=== PATIENT | male | born 1960 | race Caucasian/White ===

== ENCOUNTER 2017-05-23 16:27 | Emergency (ER) | payer OTHER ==
[~2017-05-23] VITALS: Ht 172.7 cm; Wt 95.7 kg
--- OUTSIDE RECORDS SUMMARY | 2017-05-23 16:30 | XMS REPORT | Clinical Summary ---
Author Author [facility] Organization [facility] Address Unknown Phone Unavailable Care Team Providers Care [employer]er Name Role Phone Asked, Pcp PCP Unavailable Allergies Active Allergy Reactions Severity Noted Date Comments Penicillin GI Intolerance 05/07/2017 Current Medications Prescription Sig. Disp. Refills Start End Date Status Date diclofenac (VOLTAREN) 1 % Apply 1 application 2 02/08/20 Active gel topically 4 (four) times 17 a day as needed for pain. traMADol (ULTRAM) 50 mg Take 50 mg by mouth every 0 04/30/19 Active tablet 6 (six) hours as needed 18 for pain. for pain venlafaxine XR Take 75 mg by mouth daily 3 04/19/19 Active (EFFEXOR-XR) 75 MG 24 hr with breakfast. 18 capsule atorvastatin (LIPITOR) 40 Take 1 tablet (40 mg 30 tablet 0 05/09/19 06/09/19 Active MG tablet total) by mouth nightly 18 18 for 30 days. famotidine (PEPCID) 20 MG Take 1 tablet (20 mg 60 tablet 0 05/09/19 06/09/19 Active tablet total) by mouth 2 (two) 18 18 times a day for 30 days. aspirin 81 mg chewable Chew 1 tablet (81 mg 30 tablet 0 05/09/19 Active tablet total) daily for 30 days. 18 18 baclofen (LIORESAL) 20 MG Take 1 tablet (20 mg 90 tablet 0 05/09/19 06/09/19 Active tablet total) by mouth 3 (three) 18 18 times a day for 30 days. gabapentin (NEURONTIN) Take 1 capsule (300 mg 90 capsule 0 05/09/19 06/09/19 Active 300 mg capsule total) by mouth 3 (three) 18 18 times a day for 30 days. acetaminophen-codeine Take 1-2 tablets by mouth 0 05/03/19 05/09/19 Discontin (TYLENOL WITH CODEINE #4) every 4 (four) hours as 18 18 ued 300-60 mg per tablet needed for pain. carisoprodol (SOMA) 350 Take 350 mg by mouth 0 03/06/20 05/09/19 Discontin MG tablet nightly. 17 18 ued gabapentin (NEURONTIN) Take 600 mg by mouth 3 04/19/19 05/09/19 Discontin 600 mg tablet (three) times a day. 18 18 ued HYDROcodone-acetaminophen Take 1 tablet by mouth 0 04/13/19 05/09/19 Discontin (NORCO) 7.5-325 mg per every 4 (four) hours as 18 18 ued tablet needed for pain. HYDROcodone-acetaminophen Take 1-2 tablets by mouth 0 03/20/20 Discontin (NORCO) 10-325 mg per every 4 (four) hours as 17 18 ued tablet needed. ibuprofen (ADVIL,MOTRIN) Take 400 mg by mouth 2 03/30/19 05/09/19 Discontin 400 MG tablet (two) times a day. 18 18 ued SUMAtriptan (IMITREX) 100 Take 100 mg by mouth 2 03/30/19 05/09/19 Discontin MG tablet (two) times a day as 18 18 ued needed for migraine. acetaminophen-codeine Take 1 tablet by mouth 0 04/30/19 05/09/19 Discontin (TYLENOL WITH CODEINE #3) every 6 (six) hours as 18 18 ued 300-30 mg per tablet needed. for pain baclofen (LIORESAL) 20 MG Take 20 mg by mouth 3 0 04/07/19 05/09/19 Discontin tablet (three) times a day. 18 18 ued butalbital-acetaminophen- TAKE 2 TABLETS BY MOUTH 2 04/04/19 Discontin caff (FIORICET, ESGIC) EVERY 8 (EIGHT) HOURS 18 18 ued 50-325-40 mg per tablet NEEDED FOR PAIN (SCALE 4-6) OR PAIN (SCALE 7-10). diazePAM (VALIUM) 5 MG Take 1 tablet by mouth 2 3 04/18/19 05/09/19 Discontin tablet (two) times a day. 18 18 ued tiZANidine (ZANAFLEX) 4 Take 4 mg by mouth daily. 0 03/05/20 Discontin MG tablet 17 18 ued methylPREDNISolone follow package directions 21 tablet 0 05/09/19 (MEDROL DOSEPAK) 4 mg 18 18 tablet methylPREDNISolone follow package directions 21 tablet 0 05/09/19 (MEDROL DOSEPAK) 4 mg 18 18 tablet methylPREDNISolone follow package directions 21 tablet 0 05/10/19 (MEDROL DOSEPAK) 4 mg 18 18 tablet methylPREDNISolone follow package directions 21 tablet 0 05/11/19 (MEDROL DOSEPAK) 4 mg 18 18 tablet methylPREDNISolone follow package directions 21 tablet 0 05/09/19 (MEDROL DOSEPAK) 4 mg 18 18 tablet methylPREDNISolone follow package directions 21 tablet 0 05/09/19 (MEDROL DOSEPAK) 4 mg 18 18 tablet methylPREDNISolone follow package directions 21 tablet 0 05/10/19 (MEDROL DOSEPAK) 4 mg 18 18 tablet acetaminophen-codeine Take 1 tablet by mouth 28 tablet 0 05/09/19 (TYLENOL WITH CODEINE #3) every 6 (six) hours as 18 18 300-30 mg per tablet needed for moderate pain for up to 7 days. 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 Iron deficiency anemia 05/09/2017 Hyperlipidemia 05/09/2017 Weakness of left lower extremity 05/08/2017 Sciatica of left side 05/07/2017 Encounters Date Type Specialty Care Team Description 05/07/2017 [facility] General Internal Medicine Kavita Coker MD Sciatica of left side - Encounter Genaro Mata MD (Primary Dx); 05/09/2017 Jericho Ayala MD Weakness of left lower extremity 03/06/2017 [facility] Radiology Angel Bain MD Pseudarthrosis after Encounter fusion or arthrodesis 03/06/2017 [facility] Angel Bain MD Pseudarthrosis after Orders fusion or arthrodesis 03/06/2017 [facility] Angel Bain MD Pseudarthrosis after Orders fusion or arthrodesis (Primary Dx) after 05/22/2016 Social History Tobacco Use Types Packs/Day Years Used Date Never Smoker Smokeless Tobacco: Never Used Alcohol Use Drinks/Week oz/Week Comments No Sex Assigned at Date Recorded Not on file Last Filed Vital Signs Vital Sign Reading Time Taken Blood Pressure 150/75 05/09/2017 9:35 AM ELECTRICAL [employer]OL[employer] TECHNICIAN Pulse 75 05/09/2017 9:35 AM ELECTRICAL CONTROLS TECHNICIAN Temperature 36.2 C (97.1 F) 05/09/2017 7:28 AM ELECTRICAL CONTROLS TECHNICIAN Respiratory Rate 18 05/09/2017 7:28 AM ELECTRICAL CONTROLS TECHNICIAN Oxygen Saturation 96% 05/09/2017 9:35 AM ELECTRICAL CONTROLS TECHNICIAN Inhaled Oxygen - - Concentration Weight 89 kg (196 lb 4.8 oz) 05/07/2017 11:47 PM ELECTRICAL CONTROLS TECHNICIAN Height 170.2 cm (5' 7") 05/07/2017 11:47 PM ELECTRICAL CONTR[employer]S TECHNICIAN Body Mass Index 30.74 05/07/2017 11:47 PM ELECTRICAL CONTROLS TECHNICIAN Plan of Treatment Health Maintenance Due Date Last Done Comments COLONOSCOPY 08/26/2011 INFLUENZA VACCINE 10/24/2016 Results * POC glucose (05/09/2017 5:05 AM) Only the most recent of 4 results within the time period is included. Component Value Ref Range POC glucose 223 (H) 65 - 99 mg/dL Comment: No Action Needed [facility] Notified RN Meter ID: [id number] Sand Carrier: Jb Ruiz Specimen Performing Laboratory [facility] DEPARTMENT OF PATHOLOGY AND GENOMIC MEDICINE [address] [place] [id number] * Estimated GFR (05/09/2017 4:00 AM) Only the most recent of 4 results within the time period is included. Component Value Ref Range GFR Non Af Amer >90 mL/min/1.73 m2 GFR Af Amer >90 mL/min/1.73 m2 Comment: Chronic kidney disease: <60 mL/min/1.73m2 Kidney failure: <15 mL/min/1.73m2 The estimated GFR is calculated from the IDMS-traceable Modification of Diet in Renal Disease Equation. The accuracy of the calculation is poor when the creatinine is normal. Calculated values >90 mL/min/1.73m2 are not reported. This equation has not been validated in children (<18 years), women, the elderly (>70 years), or ethnic groups other than Caucasians and Americans. Specimen Performing Laboratory Plasma specimen [facility] DEPARTMENT OF PATHOLOGY AND GENOMIC MEDICINE [address] [place] [id number] * CBC with platelet and differential (05/09/2017 4:00 AM) Only the most recent of 4 results within the time period is included. Component Value Ref Range WBC 8.71 4.50 - 11.00 k/uL RBC 4.50 4.40 - 6.00 m/uL HGB 12.0 (L) 14.0 - 18.0 g/dL HCT 38.1 (L) 41.0 - 51.0 % MCV 84.7 82.0 - 100.0 fL MCH 26.7 (L) 27.0 - 34.0 pg MCHC 31.5 31.0 - 37.0 g/dL RDW - SD 43.6 37.0 - 55.0 fL MPV 9.8 8.8 - 13.2 fL Platelet count 273 150 - 400 k/uL Nucleated RBC 0.30 /100 WBC Neutrophils 88.3 (H) 39.0 - 69.0 % Lymphocytes 6.3 (L) 25.0 - 45.0 % Monocytes 3.2 0.0 - 10.0 % Eosinophils 0.0 0.0 - 5.0 % Basophils 0.2 0.0 - 1.0 % Immature granulocytes 2.0 (H)Comment: "Immature granulocytes" 0.0 - 1.0 % (promyelocytes, myelocytes, metamyelocytes) Specimen Performing Laboratory Blood [facility] DEPARTMENT OF PATHOLOGY AND GENOMIC MEDICINE [address] [place] [id number] * Basic metabolic panel (05/09/2017 4:00 AM) Only the most recent of 2 results within the time period is included. Component Value Ref Range Sodium 137 135 - 148 mEq/L Potassium 4.5 3.5 - 5.0 mEq/L Chloride 101 98 - 112 mEq/L CO2 18 (L) 24 - 31 mEq/L Anion gap 18 (H) 7 - 15 mEq/L Comment: Starting from June , anion gap calculation no longer incorporates potassium. Please note the change. BUN 16 6 - 20 mg/dL Creatinine 0.8 0.7 - 1.2 mg/dL Glucose 197 (H) 65 - 99 mg/dL Calcium 9.8 8.3 - 10.2 mg/dL Specimen Performing Laboratory Plasma specimen [facility] DEPARTMENT OF PATHOLOGY AND [facility] MEDICINE [address] [place] [address] * XR Spine Scoliosos 2-3 Views (05/08/2017 6:30 PM) Only the most recent of 2 results within the time period is included. Specimen Performing Laboratory [facility] [address] [place] [address] Narrative EXAMINATION:XR SPINE SCOLIOSIS 2-3 VIEWS CLINICAL HISTORY:back and leg pain COMPARISON:March 06, 2017 IMPRESSION: 10 views of the whole spine are obtained. On the whole spine frontal view, there is no coronal imbalance. On the whole spine lateral view, shoulders obscure the cervical thoracic junction. There is likely anterior displacement of the Tyesha line from the posterior S1 endplate. Levoscoliosis of the cervical thoracic junction with Reeves angle of 18. Dextroscoliosis of the mid thoracic spine to the right apex at T7-8 and Reeves angle of 19. There is mild convexity of the midlumbar spine to the left. L4-S1 fusion with transpedicular screws, interconnecting rods, disc graft and iliac screws. No compression fractures or aggressive bony lesions. Multilevel degenerative endplate changes. Contrast is seen within the lumbar spinal canal due to recent myelogram. [facility]-[id number] Procedure Note Interface, Radiology Results Incoming - 05/08/2017 7:01 PM ELECTRICAL CONTROLS TECHNICIAN EXAMINATION: XR SPINE SCOLIOSIS 2-3 VIEWS CLINICAL HISTORY: back and leg pain COMPARISON: March 06, 2017 IMPRESSION: 10 views of the whole spine are obtained. On the whole spine frontal view, there is no coronal imbalance. On the whole spine lateral view, shoulders obscure the cervical thoracic junction. There is likely anterior displacement of the Tyesha line from the posterior S1 endplate. Levoscoliosis of the cervical thoracic junction with Reeves angle of 18. Dextroscoliosis of the mid thoracic spine to the right apex at T7-8 and Reeves angle of 19. There is mild convexity of the midlumbar spine to the left. L4-S1 fusion with transpedicular screws, interconnecting rods, disc graft and iliac screws. No compression fractures or aggressive bony lesions. Multilevel degenerative endplate changes. Contrast is seen within the lumbar spinal canal due to recent myelogram. [facility]-[id number] * CT Post Myelogram Lumbar (05/08/2017 2:45 PM) Specimen Performing Laboratory [facility] [address] [place] [address] Narrative EXAMINATION:CT POST MYELOGRAM LUMBAR CLINICAL HISTORY:lower back painleft leg radiculopathy COMPARISON:May 07, 2017 TECHNIQUE: CT imaging was performed with iterative reconstruction technique and/ or automated exposure control to reduce radiation dose. FINDINGS: 5 nonrib-bearing lumbar type vertebrae. Lumbar spine alignment is within normal limits. No fractures or aggressive bony lesions. There is L4-S1 fusion with transpedicular screws, iliac screws, interconnecting rods and disc graft. Laminectomy changes at L4 and L5. Posterior lateral fusion material is present. There is compression deformity of the left L5 inferior endplate at the level of the disc graft. Disc graft at this level is superiorly and posteriorly displaced into the left L5 foramen with potential mass effect on the left L5 nerve root. There is no canal narrowing in the lumbar spine. Remaining foramina are clear. IMPRESSION: L4-S1 postsurgical changes. Findings concerning for extension of L5-S1 disc graft material into left L5-S1 foramen with potential impingement of the left L5 nerve root. [facility]-[id number] Procedure Note Interface, Radiology Results Incoming - 05/08/2017 3:47 PM ELECTRICAL CONTROLS TECHNICIAN EXAMINATION: CT POST MYELOGRAM LUMBAR CLINICAL HISTORY: lower back pain left leg radiculopathy COMPARISON: May 07, 2017 TECHNIQUE: CT imaging was performed with iterative reconstruction technique and/ or automated exposure control to reduce radiation dose. FINDINGS: 5 nonrib-bearing lumbar type vertebrae. Lumbar spine alignment is within normal limits. No fractures or aggressive bony lesions. There is L4-S1 fusion with transpedicular screws, iliac screws, interconnecting rods and disc graft. Laminectomy changes at L4 and L5. Posterior lateral fusion material is present. There is compression deformity of the left L5 inferior endplate at the level of the disc graft. Disc graft at this level is superiorly and posteriorly displaced into the left L5 foramen with potential mass effect on the left L5 nerve root. There is no canal narrowing in the lumbar spine. Remaining foramina are clear. IMPRESSION: L4-S1 postsurgical changes. Findings concerning for extension of L5-S1 disc graft material into left L5-S1 foramen with potential impingement of the left L5 nerve root. [facility]-[id number] * IR Myelogram Lumb Incl Inj W S&I (05/08/2017 1:57 PM) Specimen Performing Laboratory [facility] [address] [place] [address] Narrative EXAMINATION:IR MYELOGRAM LUMB INCL INJ W S&I CLINICAL HISTORY:Low back painleft leg radiculopathy COMPARISON:May 07, 2017 Findings: Informed consent was obtained. Lower back was prepped and draped in usual sterile fashion. 1% lidocaine was used for local anesthesia. Conscious sedation was performed with incremental doses of Versed and fentanyl given intravenously by the radiology nurse. The patient was monitored with continuous pulse oximetry, heart rate monitoring and blood pressure monitoring. The physician spent face to face time with the patient for a total of15 minutes. A 22-gauge 3.5 inch needle was advanced into spinal canal at the L2-3 level under intermittent fluoroscopic guidance. 10 cc of Omnipaque 240 were instilled into the spinal canal. No complications. Total fluoroscopic time was 8 seconds. 9 images were obtained. 5 nonrib-bearing lumbar type vertebrae. L4-S1 fusion with transpedicular screws, iliac screws, interconnecting rods and disc grafts. Lumbar spine alignment is within normal limits. No fractures or aggressive bony lesions. No canal narrowing or root sleeve defects. IMPRESSION: L4-S1 fusion. No canal narrowing or root sleeve defects. [facility]-[id number] Procedure Note Hm Interface, Radiology Results Incoming - 05/08/2017 3:51 PM ELECTRICAL CONTROLS TECHNICIAN EXAMINATION: IR MYELOGRAM LUMB INCL INJ W S&I CLINICAL HISTORY: Low back pain left leg radiculopathy COMPARISON: May 07, 2017 Findings: Informed consent was obtained. Lower back was prepped and draped in usual sterile fashion. 1% lidocaine was used for local anesthesia. Conscious sedation was performed with incremental doses of Versed and fentanyl given intravenously by the radiology nurse. The patient was monitored with continuous pulse oximetry, heart rate monitoring and blood pressure monitoring. The physician spent face to face time with the patient for a total of 15 minutes. A 22-gauge 3.5 inch needle was advanced into spinal canal at the L2-3 level under intermittent fluoroscopic guidance. 10 cc of Omnipaque 240 were instilled into the spinal canal. No complications. Total fluoroscopic time was 8 seconds. 9 images were obtained. 5 nonrib-bearing lumbar type vertebrae. L4-S1 fusion with transpedicular screws, iliac screws, interconnecting rods and disc grafts. Lumbar spine alignment is within normal limits. No fractures or aggressive bony lesions. No canal narrowing or root sleeve defects. IMPRESSION: L4-S1 fusion. No canal narrowing or root sleeve defects. [facility]-[id number] * XR Chest 1 Vw Portable (05/08/2017 9:37 AM) Specimen Per[facility] [address] [place] [address] Narrative EXAMINATION:XR CHEST 1 VW PORTABLE CLINICAL HISTORY:SHORTNESS OF BREATH COMPARISON:None. IMPRESSION: 1.The cardiomediastinal silhouette is slightly enlarged. 2.There is no evidence of pulmonary edema. There are no focal consolidations or effusions. 3.There is mild scoliotic curvature of the thoracic spine. A couple of healed rib fractures noted on the left. [facility]-[id number] Procedure Note [facility], Radiology Results Incoming - 05/08/2017 10:01 AM ELECTRICAL CONTROLS TECHNICIAN EXAMINATION: XR CHEST 1 VW PORTABLE CLINICAL HISTORY: SHORTNESS OF BREATH COMPARISON: None. IMPRESSION: 1. The cardiomediastinal silhouette is slightly enlarged. 2. There is no evidence of pulmonary edema. There are no focal consolidations or effusions. 3. There is mild scoliotic curvature of the thoracic spine. A couple of healed rib fractures noted on the left. [facility]-[id number] * ECG 12 lead (05/08/2017 8:32 AM) Component Value Ref Range Ventricular rate 68 Atrial rate 68 VT interval 172 QRSD interval 100 QT interval 434 QTC interval 461 P axis 1 42 QRS axis 1 -8 T wave axis 6 EKG impression Normal sinus rhythm-Incomplete right bundle branch block-Nonspecific T wave abnormality-Prolonged QT-Abnormal ECG-No previous ECGs available- Specimen Performing Laboratory [facility] [address] [place] [address] * Partial thromboplastin time, activated (05/08/2017 6:28 AM) Component Value Ref Range PTT 29.2 23.0 - 36.0 sec Comment: PTT therapeutic range for unfractionated heparin is 61.0-112.0 seconds which corresponds to Anti-Xa 0.3-0.7 U/ml. Specimen Performing Laboratory Blood [facility] DEPARTMENT OF PATHOLOGY AND GENOMIC MEDICINE [address] [place] [address] * Prothrombin time with INR (05/08/2017 6:28 AM) Component Value Ref Range Prothrombin time 13.1 12.0 - 15.0 sec INR 1.0 Comment: The International Normalized Ratio (INR) is a therapeutic monitoring tool for patients who are stable on oral anticoagulant therapy. An INR of 2.0-3.0 is suggested for deep vein thrombosis/pulmonary embolism. Specimen Performing Laboratory Blood [facility] [address] [address] * Total iron binding capacity (05/08/2017 12:48 AM) Component Value Ref Range Iron level 40 (L) 59 - 158 ug/dL Iron binding capacity 326 200 - 400 ug/dL % Saturation 12.3 (L) 20.0 - 40.0 % Specimen Performing Laboratory Plasma specimen [facility] [address] [address] * Phosphorus level (05/08/2017 12:48 AM) Component Value Ref Range Phosphorus 2.9 2.4 - 4.5 mg/dL Specimen Performing Laboratory Plasma specimen [facility] [place] [id number] * Magnesium level (05/08/2017 12:48 AM) Component Value Ref Range Magnesium 2.4 1.6 - 2.6 mg/dL Specimen Performing Laboratory Plasma specimen [facility] [address] [address] * Folate level (05/08/2017 12:48 AM) Component Value Ref Range Folate 11.6 4.8 - 24.2 ng/mL Specimen Performing Laboratory Serum [facility] [address] [address] * Ferritin level (05/08/2017 12:48 AM) Component Value Ref Range Ferritin level 60 30 - 400 ng/mL Specimen Performing Laboratory Plasma specimen [facility] [address] [address] * Vitamin B12 level (05/08/2017 12:48 AM) Component Value Ref Range Vitamin B12 252 211 - 946 pg/mL Comment: Significant overlap exists between normal and deficiency states. However, most patients with deficiencies will have Serum B12 <200 pg/mL. Specimen Performing Laboratory Serum [facility] [address] [address] * Carcinoembryonic antigen (CEA) (05/08/2017 12:48 AM) Component Value Ref Range CEA <1.2 0.0 - 3.8 ng/mL Comment: Reference range for heavy smokers: 0.0 - 5.5 ng/mL The BARBARA Pinky 8000 CEA immunoassay was used. Results obtained with different assay methods or kits should not be used interchangeably and may be different. Specimen Performing Laboratory Serum [facility] DEPARTMENT OF PATHOLOGY AND [facility] MEDIC[facility] [address] [place] [address] * Lipid panel (05/08/2017 12:48 AM) Component Value Ref Range Cholesterol 275 (H) <200 mg/dL Triglycerides 422 (H) <150 mg/dL HDL cholesterol 28 (L) >40 mg/dL LDL cholesterol 189 (H)Comment: Result obtained by direct LDL <100 mg/dL measurement Lipid panel SeeBelow interpretation Comment: Total Cholesterol (mg/dL) <200 Desirable 200-239 Borderline-high >=240 High Triglycerides (mg/dL) <150 Normal 150-199 Borderline-high 200-499 High >=500 Very high HDL Cholesterol (mg/dL) <40 Low (male) <40 Low (female) LDL Cholesterol (mg/dL) <100 Optimal 100-129 Near or above optimal 130-159 Borderline-high 160-189 High >=190 Very high Risk Catergories that modify LDL goals. Risk Catergories LDL goal (mg/dL) CHD and CHD risk equivalent <100 (10-year risk >20%) Multiple (2+) risk factors <130 (10-year risk=<20%) 0-1 risk factors <160 (<10-year risk) Defining levels of lipids in metabolic syndrome Triglycerides >=150 mg/dL HDL Cholesterol Men <40 mg/dL Women <40 mg/dL Non-HDL cholesterol is a second target for therapy in persons with high triglycerides (>=200 mg/dL) Specimen Performing Laboratory Plasma specimen [facility] DEPARTMENT OF PATHOLOGY AND [facility] [address] [place] [address] * Comprehensive metabolic panel (05/08/2017 12:48 AM) Only the most recent of 2 results within the time period is included. Component Value Ref Range Sodium 138 135 - 148 mEq/L Potassium 4.3 3.5 - 5.0 mEq/L Chloride 101 98 - 112 mEq/L CO2 20 (L) 24 - 31 mEq/L Anion gap 17 (H) 7 - 15 mEq/L Comment: Starting from June , anion gap calculation no longer incorporates potassium. Please note the change. BUN 18 6 - 20 mg/dL Creatinine 0.9 0.7 - 1.2 mg/dL Glucose 111 (H) 65 - 99 mg/dL Calcium 9.6 8.3 - 10.2 mg/dL Protein 8.0 6.3 - 8.3 g/dL Comment: 4.6-7.0 g/dL 1 week 4.4-7.6 g/dL 7 months-1year 5.1-7.3 g/dL 1-2 years 5.6-7.5 g/dL >3 years 6.0-8.0 g/dL 18-150 6.3-8.3 g/dL Albumin 3.9 3.5 - 5.0 g/dL A/G ratio 1.0 0.7 - 3.8 Alkaline phosphatase 97 40 - 129 U/L AST 20 10 - 50 U/L ALT 11 5 - 50 U/L Total bilirubin <0.2 0.0 - 1.2 mg/dL Specimen Performing Laboratory Plasma specimen [facility] DEPARTMENT OF PATHOLOGY AND GENOMIC MEDICINE [address] [place] [address] * Manual differential (05/07/2017 8:50 PM) Component Value Ref Range Manual differential PERFORMED Neutrophils 64.0 39.0 - 69.0 % Lymphocytes 28.0 25.0 - 45.0 % Monocytes 4.0 0.0 - 10.0 % Eosinophils 4.0 0.0 - 5.0 % Basophils 0.0 0.0 - 1.0 % Metamyelocytes 0 % Promyelocytes 0 % Platelet slide review Maxx adequate Anisocytosis Moderate Polychromasia Moderate Tear drop cells Occasional Ovalocytes Moderate Specimen Performing Laboratory [facility] DEPARTMENT OF PATHOLOGY AND [facility] [address] [place] [address] * CT Lumbar Spine Wo Contrast (05/07/2017 7:57 PM) [place] [address] Narrative EXAMINATION: CT LUMBAR SPINE WO CONTRAST CLINICAL HISTORY: back pain COMPARISON:Scoliosis x-rays from earlier today TECHNIQUE: Axial noncontrast enhanced images of lumbar spine was performed with coronal sagittal reconstruction algorithms. CT scans are performed using radiation dose reduction techniques. Technical factors are evaluated and adjusted to ensure appropriate moderation of exposure. Automated dose management technology is applied to adjust radiation exposure while achieving a diagnostic quality image. FINDINGS: There is posterior fusion from L4 to S1 with pedicle screws at each level on the left connected by vertical yin which is also connected to a screw extending into the left iliac bone. There are pedicle screws on the right at L4-L5 with a pedicle screw hole at S1 connected to a vertical yin also connected to a right iliac screw. The distal portion of the left S1 pedicle screw extends just outside of the S1 vertebral body with a small piece of bone pushed outwards into the adjacent muscle. There is of questionable significance. The pedicle screws on both sides at the L5 level tips extending just outside of the anterior cortex of the L5 vertebral body. There is connecting yin in the lower lumbar region. There is a large amount of bone density fusion material in the region of the posterior elements from the lower L3 level down to the mid sacrum level. There are degenerative changes of the sacroiliac joints. The hardware obscures the soft tissue structures in the canal and foramen in the region of surgery. There is fat density in the right L4-5 upper foramen in the region of the nerve and there is some fat density in the right L5-S1 foramen in the region of the nerve. There is a large area of bone density and metallic density in the left foramen along with artifacts and I cannot exclude mass effect on the nerve in this region. The graft material in the L5-S1 disc is on the left side with no significant graft material in the central and right side of the disc. There is extraforaminal spondylosis on both sides at the L5-S1 level possibly extending into the nerves although artifacts obscure the nerve in this region. I also cannot properly evaluate the structures in the canal including the subarachnoid space at this level. There is bilateral resection of portion of the posterior elements with enlargement of the posterior foramen although there is narrowing of the height of both foramen. There is enlargement of the posterior canal from laminectomy. At L4-5 there is right extraforaminal spondylosis extending into the nerve. There is soft tissue density filling the left foramen and I cannot exclude mass effect on the nerve. The graft material is in the left L4-5 disc. I cannot properly evaluate the structures in the canal at this level. There is left foraminotomy.There is enlargement of the posterior inferior left foramen. There is enlargement of the posterior canal from laminectomy. L3-4: There is mild posterior disc space narrowing. There is bulge and facet and ligamentum flavum hypertrophic changes. There is midline posterior epidural fat and mild to moderate narrowing of the AP dimension of the central subarachnoid space. There is moderate left and mild to moderate right foramen stenosis in part congenital in nature. L2-3: There is mild bulge and facet and ligamentum flavum hypertrophic changes. There is mild congenital foramen stenosis. L1-2: There is mild bulge and facet hypertrophy. There is mild congenital foramen stenosis. CT is limited for evaluation of cord and ligament abnormalities as well as soft tissue structures in the canal and foramen including hemorrhage and protrusion and narrowing of the subarachnoid space. There is nonspecific prominent size bladder. The study was not performed for proper imaging of structures in the abdomen and pelvis. There is mild calcification of guidry of some arteries. IMPRESSION: Postoperative changes with artifacts obscuring details. There are nonspecific areas of metallic bone and soft tissue density filling the left L5-S1 foramen possibly with mass effect on the nerve. There is extraforaminal spondylosis on both sides at L5-S1 possibly with mass effect on the nerve. There is a small amount of fat in the right L5-S1 foramen in the region of the nerve although artifacts obscure the rest of the foramen. There is soft tissue density filling the left L4-5 foramen in the region of the nerve. There is right extraforaminal spondylosis at L4-5 with possible mass effect on the nerve. I cannot properly evaluate the structures in the canal at L4-5 and L5-S1. Degenerative changes and congenital canal and foramen stenosis at other levels more prominent at L3-4. 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 CT scans are performed using radiation dose reduction techniques. Technical factors are evaluated and adjusted to ensure appropriate moderation of exposure. Automated dose management technology is applied to adjust radiation exposure while achieving a diagnostic quality image. FINDINGS: There is posterior fusion from L4 to S1 with pedicle screws at each level on the left connected by vertical yin which is also connected to a screw extending into the left iliac bone. There are pedicle screws on the right at L4-L5 with a pedicle screw hole at S1 connected to a vertical yin also connected to a right iliac screw. The distal portion of the left S1 pedicle screw extends just outside of the S1 vertebral body with a small piece of bone pushed outwards into the adjacent muscle. There is of questionable significance. The pedicle screws on both sides at the L5 level tips extending just outside of the anterior cortex of the L5 vertebral body. There is connecting yin in the lower lumbar region. There is a large amount of bone density fusion material in the region of the posterior elements from the lower L3 level down to the mid sacrum level. There are degenerative changes of the sacroiliac joints. The hardware obscures the soft tissue structures in the canal and foramen in the region of surgery. There is fat density in the right L4-5 upper foramen in the region of the nerve and there is some fat density in the right L5-S1 foramen in the region of the nerve. There is a large area of bone density and metallic density in the left foramen along with artifacts and I cannot exclude mass effect on the nerve in this region. The graft material in the L5-S1 disc is on the left side with no significant graft material in the central and right side of the disc. There is extraforaminal spondylosis on both sides at the L5-S1 level possibly extending into the nerves although artifacts obscure the nerve in this region. I also cannot properly evaluate the structures in the canal including the subarachnoid space at this level. There is bilateral resection of portion of the posterior elements with enlargement of the posterior foramen although there is narrowing of the height of both foramen. There is enlargement of the posterior canal from laminectomy. At L4-5 there is right extraforaminal spondylosis extending into the nerve. There is soft tissue density filling the left foramen and I cannot exclude mass effect on the nerve. The graft material is in the left L4-5 disc. I cannot properly evaluate the structures in the canal at this level. There is left foraminotomy. There is enlargement of the posterior inferior left foramen. There is enlargement of the posterior canal from laminectomy. L3-4: There is mild posterior disc space narrowing. There is bulge and facet and ligamentum flavum hypertrophic changes. There is midline posterior epidural fat and mild to moderate narrowing of the AP dimension of the central subarachnoid space. There is moderate left and mild to moderate right foramen stenosis in part congenital in nature. L2-3: There is mild bulge and facet and ligamentum flavum hypertrophic changes. There is mild congenital foramen stenosis. L1-2: There is mild bulge and facet hypertrophy. There is mild congenital foramen stenosis. CT is limited for evaluation of cord and ligament abnormalities as well as soft tissue structures in the canal and foramen including hemorrhage and protrusion and narrowing of the subarachnoid space. There is nonspecific prominent size bladder. The study was not performed for proper imaging of structures in the abdomen and pelvis. There is mild calcification of guidry of some arteries. IMPRESSION: Postoperative changes with artifacts obscuring details. There are nonspecific areas of metallic bone and soft tissue density filling the left L5-S1 foramen possibly with mass effect on the nerve. There is extraforaminal spondylosis on both sides at L5-S1 possibly with mass effect on the nerve. There is a small amount of fat in the right L5-S1 foramen in the region of the nerve although artifacts obscure the rest of the foramen. There is soft tissue density filling the left L4-5 foramen in the region of the nerve. There is right extraforaminal spondylosis at L4-5 with possible mass effect on the nerve. I cannot properly evaluate the structures in the canal at L4-5 and L5-S1. Degenerative changes and congenital canal and foramen stenosis at other levels more prominent at L3-4. [id number] after 05/22/2016 Insurance Payer Benefit Subscriber ID Type Phone Address Plan / Group [employer] xxxxxxxxx [facility] STAR+PLUS [facility] [place] [address]
--- OUTSIDE RECORDS SUMMARY | 2017-05-23 16:30 | XMS REPORT ---
Author Author [facility] Address Unknown Phone Unavailable Care Team Providers Care Android Framework Developer Name Role Phone Unavailable Unavailable Problems This patient has no known problems. Allergies, Adverse Reactions, Alerts This patient has no known allergies or adverse reactions. Medications This patient has no known medications. Encounters Start Date/Time End Date/Time Encounter Type Admission Type Attending Clinicians Care Facility Care Department Encounter ID 2017-05-23 13:36:00 2017-05-23 13:36:00 Emergency [facility] [id number]
[2017-05-23] MEDS ORDERED: DIAZEPAM 5 MG TAB PO PRN (18:00)
[2017-05-23] MEDS ORDERED: KETOROLAC TROMETHAMINE 60 MG/2 ML VIAL IM ONE (18:00)
[2017-05-23] MEDS ORDERED: HYDROCODONE/APAP 10MG-325MG TAB PO ONE (18:00)
--- NOTE | 2017-05-23 19:53 | Diagnostic Imaging Report ---
Exam: Lumbar spine 2 views History: Neck pain Comparison: None. Findings: No fracture or malalignment. Lumbopelvic fusion from L4 to the pelvis. Interbody device at L4-5 L5-S1. Radiopaque marker of the L5-S1 device just posterior to the posterior cortex of L5. Hardware intact without loosening or failure. Endplate change of the upper lumbar spine. Impression: Lumbopelvic fusion as above. Signed by: Dr. Heriberto Savage M.D. on 05/23/2017 7:49 PM
[2017-05-23 20:35] VITALS: BP 132/76
== END 2017-05-23 20:37 | disposition home or self-care (01) ==
LOC: ER 16:27
DX: S39.012A Strain of muscle, fascia and tendon of lower back, initial encounter (principal); M54.5 Low back pain; G89.29 Other chronic pain; Z98.1 Arthrodesis status; X58.XXXA Exposure to other specified factors, initial encounter
CPT/HCPCS: 72100; 99283; J1885

== ENCOUNTER 2017-06-07 10:59 | Emergency (ER) | payer OTHER ==
[~2017-06-07] VITALS: Ht 172.7 cm; Wt 95.7 kg
--- OUTSIDE RECORDS SUMMARY | 2017-06-07 11:01 | XMS REPORT | Continuity of Care Document ---
Author Author [facility] Organization [facility] Address [address] [place] [address] Phone Unavailable Care Team Providers Care Bleach Tester Name Role Phone NO, PCP PCP Unavailable Insurance Providers Guarantor Harvey Sumner Address [address] [place] [phone] Email PTDECLINED Payer [facility] Policy Number [id number] Subscriber's Name Nichole Sumnermary alice Walters Relationship 18 Self / Same As Patient Effective Date 15 Advance Directives Directive Response Recorded Date/Time Does the patient have an advance directive? No 05/23/17 7:55pm If yes, is advance directive on file with [facility]? No 05/23/17 7:55pm If not on file with [facility] will patient provide a copy? No 05/23/17 7:55pm Do you have a Directive to Physician? No 05/23/17 7:55pm Do you have a Medical Power of Defensive Line Coach? No 05/23/17 7:55pm Do you have an out of hospital Do Not Resuscitate Order? No 05/23/17 7:55pm Do you have any special needs we should be aware of? No 05/23/17 7:55pm Do you have a support person here with you today? Yes 05/23/17 7:55pm Did patient receive Notice of Privacy Practices? Yes 05/23/17 7:55pm Did patient receive patient rights and responsibilities? Yes 05/23/17 7:55pm Problems No problem information available. Medications No medication information available. Social History Smoking Status Start Date Stop Date Never Smoker Hospital Discharge Instructions No hospital discharge instruction information available. Plan of Care Discharge Date 05/23/17 8:37pm Disposition HOME, SELF-CARE Condition at Discharge Stable Instructions/Education Provided Back Pain Forms Provided Work/School Excuse Prescriptions See Medication Section Referrals AGNIESZKA CISSE MD Address: [address] [address] [place] [address] SAMUEL OSORIO MD Address: [address] [place] [address] [address] [place] [address] Additional Instructions/Education 1. follow up with your doctor / orthopedic doctor in 1-2 dyas without fail 2. return to ed as needed Functional Status No functional status information available. Allergies, Adverse Reactions, Alerts No known allergies. Immunizations No immunization information available. Vital Signs Acute Vital Signs Vital Response Date/Time Temperature (Fahrenheit) 97.8 degrees F (97.6 - 99.5) 05/23/2017 8:35pm Pulse Pulse Rate (adult) 82 bpm (60 - 90) 05/23/2017 8:35pm Respiratory Rate 17 bpm (12 - 24) 05/23/2017 8:35pm Blood Pressure 132/76 mm Hg 05/23/2017 8:35pm Height 5 ft 8 in 05/23/2017 4:39pm Weight 211 lb 05/23/2017 4:39pm Body Mass Index 32.1 kg/m^2 05/23/2017 4:39pm Results No relevant diagnostic test, laboratory data and/or discharge summary information available. Procedures No procedure information available. Encounters Encounter Location Arrival/Admit Date Discharge/Depart Date Attending Provider Departed Emergency Room [facility] 05/23/17 4:27pm 8:37pm DAMI HUMPHREYS MD
--- OUTSIDE RECORDS SUMMARY | 2017-06-07 11:01 | XMS REPORT | Clinical Summary ---
Author Author [facility] Address Unknown Phone Unavailable Care Team Providers Care Chemical Plant Manager Name Role Phone Asked, Pcp PCP Unavailable [...] Encounters Date Type Specialty Care Team Description 05/24/2017 Emergency Emergency Medicine Raymond Cornelius MD Chronic left-sided low back pain, with sciatica presence unspecified (Primary Dx); Chronic arterial ischemic stroke; Cancer 05/07/2017 [facility] General Internal Medicine Kavita Coker MD Sciatica of left side - Encounter Genaro Mata MD (Primary Dx); 05/09/2017 Jericho Ayala MD Weakness of left lower extremity 03/06/2017 [facility] Radiology Angel Bain MD Pseudarthrosis after Encounter fusion or arthrodesis 03/06/2017 Ancillary Access Angel Bain MD Pseudarthrosis after Orders fusion or arthrodesis 03/06/2017 Transcribe Access Angel Bain MD Pseudarthrosis after Orders fusion or arthrodesis (Primary Dx) after 06/06/2016 Social History Tobacco Use Types Packs/Day Years Used Date Never Smoker Smokeless Tobacco: Never Used Alcohol Use Drinks/Week oz/Week Comments No Sex Assigned at Date Recorded Not on file Last Filed Vital Signs Vital Sign Reading Time Taken Blood Pressure 122/66 05/24/2017 1:37 PM [facility] Pulse 68 05/24/2017 1:37 PM [facility] Temperature 36.7 C (98 F) 05/24/2017 1:37 PM [facility] Respiratory Rate 18 05/24/2017 1:37 PM [facility] Oxygen Saturation 98% 05/24/2017 1:37 PM [facility] Inhaled Oxygen - - Concentration Weight 89 kg (196 lb 4.8 oz) 05/07/2017 11:47 PM [facility] Height 172.7 cm (5' 8") 05/24/2017 1:37 PM [facility] Body Mass Index 30.74 05/07/2017 11:47 PM [facility] Plan of Treatment Health Maintenance Due Date Last Done Comments COLONOSCOPY 08/26/2011 INFLUENZA VACCINE 10/24/2016 Results * POC glucose (05/09/2017 5:05 AM) Only the most recent of 4 results within the time period is included. Component Value Ref Range POC glucose 223 (H) 65 - 99 mg/dL Comment: No Action Needed [facility] Notified RN Meter ID: [id number] Manager Union: Jb Ruiz Specimen Performing Laboratory [facility] DEPARTMENT OF PATHOLOGY AND GENOMIC MEDICINE [address] [place] [address] * Estimated GFR (05/09/2017 4:00 AM) Only [...] and Americans. Specimen Performing Laboratory Plasma specimen [facility] DEPARTMENT OF PATHOLOGY AND GENOMIC MEDICINE [address] [place] [address] * CBC with platelet and differential (05/09/2017 [...] (promyelocytes, myelocytes, metamyelocytes) Specimen Performing Laboratory Blood [facility] DEPARTMENT OF PATHOLOGY AND GENOMIC MEDICINE [address] [place] [address] * Basic metabolic panel (05/09/2017 4:00 AM) [...] 10.2 mg/dL Specimen Performing Laboratory Plasma specimen [facility] DEPARTMENT OF PATHOLOGY AND GENOMIC MEDICINE [address] [place] [address] * XR Spine Scoliosos 2-3 Views (05/08/2017 6:30 PM) Only the most recent of 2 results within the time period is included. Specimen Performing Laboratory [address] [address] Narrative EXAMINATION:XR SPINE SCOLIOSIS 2-3 VIEWS CLINICAL [...] lumbar spinal canal due to recent myelogram. [facility]-[id number] Procedure Note Interface, Radiology Results Incoming - 05/08/2017 7:01 PM [facility] EXAMINATION: XR SPINE SCOLIOSIS 2-3 VIEWS CLINICAL [...] lumbar spinal canal due to recent myelogram. [facility]-[id number] * CT Post Myelogram Lumbar (05/08/2017 2:45 PM) Specimen Performing Laboratory [facility] [address] [place] [address] [place] [address] Narrative EXAMINATION:CT POST MYELOGRAM LUMBAR CLINICAL HISTORY:lower [...] impingement of the left L5 nerve root. [facility]-[id number] Procedure Note Interface, Radiology Results Incoming - 05/08/2017 3:47 PM [facility] EXAMINATION: CT POST MYELOGRAM LUMBAR CLINICAL HISTORY: [...] impingement of the left L5 nerve root. [facility]-[id number] * IR Myelogram Lumb Incl Inj W S&I (05/08/2017 1:57 PM) Specimen Performing Laboratory [facility] [address] [place] [address] Narrative EXAMINATION:IR MYELOGRAM LUMB INCL INJ W [...] No canal narrowing or root sleeve defects. [facility]-[id number] Procedure Note Hm Interface, Radiology Results Incoming - 05/08/2017 3:51 PM [facility] EXAMINATION: IR MYELOGRAM LUMB INCL INJ W [...] No canal narrowing or root sleeve defects. [facility]-[id number] * XR Chest 1 Vw Portable (05/08/2017 9:37 AM) Specimen Performing Laboratory [address] [address] Narrative EXAMINATION:XR CHEST 1 VW PORTABLE CLINICAL HISTORY:SHORTNESS OF BREATH COMPARISON:None. IMPRESSION: 1.The cardiomediastinal silhouette is slightly enlarged. 2.There is no evidence of pulmonary edema. There are no focal consolidations or effusions. 3.There is mild scoliotic curvature of the thoracic spine. A couple of healed rib fractures noted on the left. [facility]-[id number] Procedure Note Interface, Radiology Results Incoming - 05/08/2017 10:01 AM [facility] EXAMINATION: XR CHEST 1 VW PORTABLE CLINICAL HISTORY: SHORTNESS OF BREATH COMPARISON: None. IMPRESSION: 1. The cardiomediastinal silhouette is slightly enlarged. 2. There is no evidence of pulmonary edema. There are no focal consolidations or effusions. 3. There is mild scoliotic curvature of the thoracic spine. A couple of healed rib fractures noted on the left. [facility]-[id number] * ECG 12 lead (05/08/2017 8:32 AM) Component Value Ref Range Ventricular rate 68 Atrial rate 68 CA interval 172 QRSD interval 100 QT interval 434 QTC interval 461 P axis 1 42 QRS axis 1 -8 T wave axis 6 EKG impression Normal sinus rhythm-Incomplete right bundle branch block-Nonspecific T wave abnormality-Prolonged QT-Abnormal ECG-No previous ECGs available- Specimen Performing Laboratory [facility] MUSE [address] [place] [address] * Partial thromboplastin time, activated (05/08/2017 6:28 AM) Component Value Ref Range PTT 29.2 23.0 - 36.0 sec Comment: PTT therapeutic range for unfractionated heparin is 61.0-112.0 seconds which corresponds to Anti-Xa 0.3-0.7 U/ml. Specimen Performing Laboratory Blood [facility] DEPARTMENT OF PATHOLOGY AND GENOMIC MEDICINE [address] [place] [address] * Prothrombin time with INR (05/08/2017 6:28 AM) Component Value Ref Range Prothrombin time 13.1 12.0 - 15.0 sec INR 1.0 Comment: The International Normalized Ratio (INR) is a therapeutic monitoring tool for patients who are stable on oral anticoagulant therapy. An INR of 2.0-3.0 is suggested for deep vein thrombosis/pulmonary embolism. Specimen Performing Laboratory Blood [facility] [address] [address] * Total iron binding capacity (05/08/2017 12:48 AM) Component Value Ref Range Iron level 40 (L) 59 - 158 ug/dL Iron binding capacity 326 200 - 400 ug/dL % Saturation 12.3 (L) 20.0 - 40.0 % Specimen Performing Laboratory Plasma specimen [facility] [address] [address] * Phosphorus level (05/08/2017 12:48 AM) Component Value Ref Range Phosphorus 2.9 2.4 - 4.5 mg/dL Specimen Performing Laboratory Plasma specimen [facility] [address] [address] * Magnesium level (05/08/2017 12:48 AM) Component Value Ref Range Magnesium 2.4 1.6 - 2.6 mg/dL Specimen Performing Laboratory Plasma specimen [facility] [address] [address] * Folate level (05/08/2017 12:48 AM) Component Value Ref Range Folate 11.6 4.8 - 24.2 ng/mL Specimen Performing Laboratory Serum [facility] [address] [address] * Ferritin level (05/08/2017 12:48 AM) Component Value Ref Range Ferritin level 60 30 - 400 ng/mL Specimen Performing Laboratory Plasma specimen [facility] [address] [address] * Vitamin B12 level (05/08/2017 12:48 AM) Component Value Ref Range Vitamin B12 252 211 - 946 pg/mL Comment: Significant overlap exists between normal and deficiency states. However, most patients with deficiencies will have Serum B12 <200 pg/mL. Specimen Performing Laboratory Serum [facility] [address] [address] * Carcinoembryonic antigen (CEA) (05/08/2017 12:48 AM) Component Value Ref Range CEA <1.2 0.0 - 3.8 ng/mL Comment: Reference range for heavy smokers: 0.0 - 5.5 ng/mL The BARBARA Pinky 8000 CEA immunoassay was used. Results obtained with different assay methods or kits should not be used interchangeably and may be different. Specimen Performing Laboratory Serum [facility] DEPARTMENT OF PATHOLOGY AND GENOMIC MEDICINE [address] [place] [address] * Lipid panel (05/08/2017 12:48 AM) Component [...] (>=200 mg/dL) Specimen Performing Laboratory Plasma specimen [facility] DEPARTMENT OF PATHOLOGY AND GENOMIC MEDICINE [address] [place] [address] * Comprehensive metabolic panel (05/08/2017 12:48 AM) [...] 1.2 mg/dL Specimen Performing Laboratory Plasma specimen [facility] DEPARTMENT OF PATHOLOGY AND GENOMIC MEDICINE [address] [place] [address] * Manual differential (05/07/2017 8:50 PM) Component [...] cells Occasional Ovalocytes Moderate Specimen Performing Laboratory [facility] DEPARTMENT OF PATHOLOGY AND GENOMIC MEDICINE [address] [place] [address] * CT Lumbar Spine Wo Contrast (05/07/2017 7:57 PM) Specimen [place] [address] Narrative EXAMINATION: CT LUMBAR SPINE WO CONTRAST [...] at other levels more prominent at L3-4. [facility]-[id number] Procedure Note Hm Interface, Radiology Results Incoming - 05/07/2017 9:03 PM [facility] EXAMINATION: CT LUMBAR SPINE WO CONTRAST CLINICAL [...] at other levels more prominent at L3-4. [id number] after 06/06/2016 Insurance Payer Benefit Subscriber ID Type Phone Address Plan / Group [employer] xxxxxxxxx [facility] Home: [address] [place], [place] [phone] [place] [address]
[2017-06-07] MEDS ORDERED: KETOROLAC TROMETHAMINE 60 MG/2 ML VIAL IM ONE (11:15)
[2017-06-07] MEDS ORDERED: TRAMADOL HCL 50 MG TAB PO ONE (11:15)
[2017-06-07] MEDS ORDERED: CYCLOBENZAPRINE HCL 10 MG TAB PO ONE (11:15)
[2017-06-07 11:33] VITALS: BP 139/88
== END 2017-06-07 11:50 | disposition home or self-care (01) ==
LOC: ER 10:59
DX: M54.5 Low back pain (principal); G89.29 Other chronic pain
CPT/HCPCS: 99282; J1885

== ENCOUNTER 2017-06-17 14:04 | Emergency (ER) | payer OTHER ==
[~2017-06-17] VITALS: Ht 172.7 cm; Wt 95.7 kg
--- OUTSIDE RECORDS SUMMARY | 2017-06-17 14:07 | XMS REPORT | Continuity of Care Document ---
Author Author [facility] Organization [facility] Address [address] [place] [address] Phone Unavailable Care Team Providers Care Content Production Specialist Name Role Phone NO, PCP PCP Unavailable Insurance Providers Guarantor Harvey Sumner Address [address] [place] [address] Email PTDECLINED Payer [facility] Policy Number [id number] Subscriber's Name Nichole Sumnermary alice Walters Relationship 18 Self / Same As Patient Effective Date 15 Advance Directives Directive Response Recorded Date/Time Does the patient have an advance directive? No 05/23/17 7:55pm If yes, is advance directive on file with [facility]? No 05/23/17 7:55pm If not on file with [facility] will patient provide a copy? No 05/23/17 7:55pm Do you have a Directive to Physician? No 06/07/17 11:42am Do you have a Medical Power of Supervisor Remelt? No 06/07/17 11:42am Do you have an out of hospital Do Not Resuscitate Order? No 06/07/17 11:42am Do you have any special needs we should be aware of? No 06/07/17 11:42am Do you have a support person here with you today? Yes 06/07/17 11:42am Did patient receive Notice of Privacy Practices? Yes 06/07/17 11:42am Did patient receive patient rights and responsibilities? Yes 06/07/17 11:42am Problems No problem information available. Medications No medication information available. Social History Smoking Status Start Date Stop Date Unknown if ever smoked Hospital Discharge Instructions No hospital discharge instruction information available. Plan of Care Discharge Date 06/07/17 11:50am Disposition HOME, SELF-CARE Condition at Discharge Stable Instructions/Education Provided Back Pain Forms Provided Work/School Excuse Prescriptions See Medication Section Referrals SAMUEL OSORIO MD Address: [address] [place] [address] [address] [place] [address] Additional Instructions/Education 1. follow up with your doctor in 1-2 days w/ o fail 2. return to ed as needed Functional Status No functional status information available. Allergies, Adverse Reactions, Alerts No known allergies. Immunizations No immunization information available. Vital Signs Acute Vital Signs Vital Response Date/Time Temperature (Fahrenheit) 98.3 degrees F (97.6 - 99.5) 06/07/2017 11:33am Pulse Pulse Rate (adult) 79 bpm (60 - 90) 06/07/2017 11:33am Respiratory Rate 18 bpm (12 - 24) 06/07/2017 11:33am Blood Pressure 139/88 mm Hg 06/07/2017 11:33am Height 5 ft 8 in 06/07/2017 11:07am Weight 211 lb 06/07/2017 11:07am Body Mass Index 32.1 kg/m^2 06/07/2017 11:07am Results No relevant diagnostic test, laboratory data and/or discharge summary information available. Procedures No procedure information available. Encounters Encounter Location Arrival/Admit Date Discharge/Depart Date Attending Provider Departed Emergency Room [facility] 06/07/17 10:59am 06/07 11:50am DONALD CASTRO Departed Emergency Room [facility] 05/23/17 4:27pm 8:37pm DAMI HUMPHREYS MD
--- OUTSIDE RECORDS SUMMARY | 2017-06-17 14:07 | XMS REPORT | Clinical Summary ---
Author Author [facility] Organization [facility] Address Unknown Phone Unavailable Care Team Providers Care Resident Care Spec Name Role Phone Asked, Pcp PCP Unavailable [...] MG 24 hr with breakfast. 18 capsule acetaminophen-codeine Take 1-2 tablets by mouth 0 [...] 03/05/20 Discontin MG tablet 17 18 ued atorvastatin (LIPITOR) 40 Take 1 tablet (40 mg 30 tablet 0 05/09/19 06/09/19 MG tablet total) by mouth nightly 18 18 for 30 days. methylPREDNISolone follow package directions 21 tablet 0 [...] (MEDROL DOSEPAK) 4 mg 18 18 tablet famotidine (PEPCID) 20 MG Take 1 tablet (20 mg 60 tablet 0 05/09/19 06/09/19 tablet total) by mouth 2 (two) 18 18 times a day for 30 days. acetaminophen-codeine Take 1 tablet by mouth 28 tablet 0 05/09/19 (TYLENOL WITH CODEINE #3) every 6 (six) hours as 18 18 300-30 mg per tablet needed for moderate pain for up to 7 days. for pain aspirin 81 mg chewable Chew 1 tablet (81 mg 30 tablet 0 05/09/19 tablet total) daily for 30 days. 18 18 baclofen (LIORESAL) 20 MG Take 1 tablet (20 mg 90 tablet 0 05/09/19 06/09/19 tablet total) by mouth 3 (three) 18 18 times a day for 30 days. gabapentin (NEURONTIN) Take 1 capsule (300 mg 90 capsule 0 05/09/19 06/09/19 300 mg capsule total) by mouth 3 (three) 18 18 times a day for 30 days. 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 Iron deficiency anemia 05/09/2017 Hyperlipidemia 05/09/2017 Weakness of left lower extremity 05/08/2017 Sciatica of left side 05/07/2017 Encounters Date Type Specialty Care Team Description 05/24/2017 Emergency Emergency Medicine Raymond Cornelius MD Chronic left-sided low back pain, with sciatica presence unspecified (Primary Dx); Chronic arterial ischemic stroke; Cancer 05/07/2017 [facility] General Internal Medicine Kavita Coker MD Sciatica of left side - Encounter Genaro Mata MD (Primary Dx); 05/09/2017 Jericho Ayala MD Weakness of left lower extremity 03/06/2017 [facility] Radiology Angel Bain MD Pseudarthrosis after Encounter fusion or arthrodesis 03/06/2017 Ancillary Access Angel Bain MD Pseudarthrosis after Orders fusion or arthrodesis 03/06/2017 [facility] Agnel Bain MD Pseudarthrosis after Orders fusion or arthrodesis (Primary Dx) after 06/16/2016 Social History Tobacco Use Types Packs/Day Years Used Date Never Smoker Smokeless Tobacco: Never Used Alcohol Use Drinks/Week oz/Week Comments No Sex Assigned at Date Recorded Not on file Last Filed Vital Signs Vital Sign Reading Time Taken Blood Pressure 122/66 05/24/2017 1:37 PM SALES AND MARKETING ADMINISTRATOR Pulse 68 05/24/2017 1:37 PM SALES AND MARKETING ADMINISTRATOR Temperature 36.7 C (98 F) 05/24/2017 1:37 PM SALES AND MARKETING ADMINISTRATOR Respiratory Rate 18 05/24/2017 1:37 PM SALES AND MARKETING ADMINISTRATOR Oxygen Saturation 98% 05/24/2017 1:37 PM SALES AND MARKETING ADMINISTRATOR Inhaled Oxygen - - Concentration Weight 89 kg (196 lb 4.8 oz) 05/07/2017 11:47 PM SALES AND MARKETING ADMINISTRATOR Height 172.7 cm (5' 8") 05/24/2017 1:37 PM SALES AND MARKETING ADMINISTRATOR Body Mass Index 30.74 05/07/2017 11:47 PM SALES AND MARKETING ADMINISTRATOR Plan of Treatment Health Maintenance Due Date Last Done Comments COLONOSCOPY 08/26/2011 INFLUENZA VACCINE 10/24/2016 Results * POC glucose (05/09/2017 5:05 AM) Only the most recent of 4 results within the time period is included. Component Value Ref Range POC glucose 223 (H) 65 - 99 mg/dL Comment: No Action Needed [facility] Notified RN Meter ID: [id number] Poly Packer And Heat Sealer: Jb Ruiz Specimen Performing Laboratory [facility] DEPARTMENT OF PATHOLOGY AND GENOMIC MEDICINE [address] [place] [address] * Estimated GFR (05/09/2017 4:00 AM) Only [...] and Americans. Specimen Performing Laboratory Plasma specimen [facility] DEPARTMENT OF PATHOLOGY AND GENOMIC MEDICINE [address] [place] [id number] * CBC with platelet and differential (05/09/2017 [...] (promyelocytes, myelocytes, metamyelocytes) Specimen Performing Laboratory Blood [facility] DEPARTMENT OF PATHOLOGY AND GENOMIC MEDICINE [address] [place] [address] * Basic metabolic panel (05/09/2017 4:00 AM) [...] 10.2 mg/dL Specimen Performing Laboratory Plasma specimen [facility] DEPARTMENT OF PATHOLOGY AND GENOMIC MEDICINE [address] [place] [address] * XR Spine Scoliosos 2-3 Views (05/08/2017 6:30 PM) Only the most recent of 2 results within the time period is included. Specimen Performing Laboratory [facility] [address] [place] [address] Narrative EXAMINATION:XR SPINE SCOLIOSIS 2-3 VIEWS CLINICAL [...] lumbar spinal canal due to recent myelogram. [facility]-[id number] Procedure Note Interface, Radiology Results Incoming - 05/08/2017 7:01 PM SALES AND MARKETING ADMINISTRATOR EXAMINATION: XR SPINE SCOLIOSIS 2-3 VIEWS CLINICAL [...] lumbar spinal canal due to recent myelogram. [facility]-[id number] * CT Post Myelogram Lumbar (05/08/2017 2:45 PM) Specimen Performing Laboratory [facility] [address] [place] [address] Narrative EXAMINATION:CT POST MYELOGRAM LUMBAR CLINICAL HISTORY:lower [...] impingement of the left L5 nerve root. [facility]-[id number] Procedure Note Interface, Radiology Results Incoming - 05/08/2017 3:47 PM SALES AND MARKETING ADMINISTRATOR EXAMINATION: CT POST MYELOGRAM LUMBAR CLINICAL HISTORY: [...] impingement of the left L5 nerve root. [facility]-[id number] * IR Myelogram Lumb Incl Inj W S&I (05/08/2017 1:57 PM) Specimen Performing Laboratory [facility] [address] [place] [address] Narrative EXAMINATION:IR MYELOGRAM LUMB INCL INJ W [...] No canal narrowing or root sleeve defects. [facility]-[id number] Procedure Note Interface, Radiology Results Incoming - 05/08/2017 3:51 PM SALES AND MARKETING ADMINISTRATOR EXAMINATION: IR MYELOGRAM LUMB INCL INJ W [...] No canal narrowing or root sleeve defects. [id number] * XR Chest 1 Vw Portable (05/08/2017 9:37 AM) Specimen Performing Laboratory [address] [address] Narrative EXAMINATION:XR CHEST 1 VW PORTABLE CLINICAL HISTORY:SHORTNESS OF BREATH COMPARISON:None. IMPRESSION: 1.The cardiomediastinal silhouette is slightly enlarged. 2.There is no evidence of pulmonary edema. There are no focal consolidations or effusions. 3.There is mild scoliotic curvature of the thoracic spine. A couple of healed rib fractures noted on the left. [facility]-[id number] Procedure Note [facility], Radiology Results Incoming - 05/08/2017 10:01 AM SALES AND MARKETING ADMINISTRATOR EXAMINATION: XR CHEST 1 VW PORTABLE CLINICAL HISTORY: SHORTNESS OF BREATH COMPARISON: None. IMPRESSION: 1. The cardiomediastinal silhouette is slightly enlarged. 2. There is no evidence of pulmonary edema. There are no focal consolidations or effusions. 3. There is mild scoliotic curvature of the thoracic spine. A couple of healed rib fractures noted on the left. [facility]-[id number] * ECG 12 lead (05/08/2017 8:32 AM) Component Value Ref Range Ventricular rate 68 Atrial rate 68 OK interval 172 QRSD interval 100 QT interval 434 QTC interval 461 P axis 1 42 QRS axis 1 -8 T wave axis 6 EKG impression Normal sinus rhythm-Incomplete right bundle branch block-Nonspecific T wave abnormality-Prolonged QT-Abnormal ECG-No previous ECGs available- Specimen Performing Laboratory [facility] [address] [place] [address] * Partial thromboplastin time, activated (05/08/2017 6:28 AM) Component Value Ref Range PTT 29.2 23.0 - 36.0 sec Comment: PTT therapeutic range for unfractionated heparin is 61.0-112.0 seconds which corresponds to Anti-Xa 0.3-0.7 U/ml. Specimen Performing Laboratory Blood [facility] DEPARTMENT OF PATHOLOGY AND GENOMIC MEDICINE [address] [place] [address] * Prothrombin time with INR (05/08/2017 6:28 AM) Component Value Ref Range Prothrombin time 13.1 12.0 - 15.0 sec INR 1.0 Comment: The International Normalized Ratio (INR) is a therapeutic monitoring tool for patients who are stable on oral anticoagulant therapy. An INR of 2.0-3.0 is suggested for deep vein thrombosis/pulmonary embolism. Specimen Performing Laboratory Blood [facility] PATHOLOGY [address] [address] * Total iron binding capacity (05/08/2017 12:48 AM) Component Value Ref Range Iron level 40 (L) 59 - 158 ug/dL Iron binding capacity 326 200 - 400 ug/dL % Saturation 12.3 (L) 20.0 - 40.0 % Specimen Performing Laboratory Plasma specimen [facility] [address] [address] * Phosphorus level (05/08/2017 12:48 AM) Component Value Ref Range Phosphorus 2.9 2.4 - 4.5 mg/dL Specimen Performing Laboratory Plasma specimen [facility] DEPARTMENT PATHOLOGY [address] [address] * Magnesium level (05/08/2017 12:48 AM) Component Value Ref Range Magnesium 2.4 1.6 - 2.6 mg/dL Specimen Performing Laboratory Plasma specimen [facility] PATH[facility] [address] [address] * Folate level (05/08/2017 12:48 AM) Component Value Ref Range Folate 11.6 4.8 - 24.2 ng/mL Specimen Performing Laboratory Serum [facility] PATH[facility] [address] [address] * Ferritin level (05/08/2017 12:48 AM) Component Value Ref Range Ferritin level 60 30 - 400 ng/mL Specimen Performing Laboratory Plasma specimen [facility] PATH[facility] [address] [address] * Vitamin B12 level (05/08/2017 12:48 AM) Component Value Ref Range Vitamin B12 252 211 - 946 pg/mL Comment: Significant overlap exists between normal and deficiency states. However, most patients with deficiencies will have Serum B12 <200 pg/mL. Specimen Performing Laboratory Serum [facility] PATHOLOG[facility] [address] [address] * Carcinoembryonic antigen (CEA) (05/08/2017 12:48 AM) Component Value Ref Range CEA <1.2 0.0 - 3.8 ng/mL Comment: Reference range for heavy smokers: 0.0 - 5.5 ng/mL The BARBARA Pinky 8000 CEA immunoassay was used. Results obtained with different assay methods or kits should not be used interchangeably and may be different. Specimen Performing Laboratory Serum [facility] DEPARTMENT OF PATHOLOGY AND GENOMIC MEDICINE [address] [place] [address] * Lipid panel (05/08/2017 12:48 AM) Component [...] (>=200 mg/dL) Specimen Performing Laboratory Plasma specimen [facility] DEPARTMENT OF PATHOLOGY AND GENOMIC MEDICINE [address] [place] [address] * Comprehensive metabolic panel (05/08/2017 12:48 AM) [...] Protein 8.0 6.3 - 8.3 g/dL Comment: [place] 4.6-7.0 g/dL 1 week 4.4-7.6 g/dL 7 [...] 1.2 mg/dL Specimen Performing Laboratory Plasma specimen [facility] DEPARTMENT OF PATHOLOGY AND GENOMIC MEDICINE [address] [place], [place] [id number] * Manual differential (05/07/2017 8:50 PM) Component [...] cells Occasional Ovalocytes Moderate Specimen Performing Laboratory [facility] DEPARTMENT OF PATHOLOGY AND GENOMIC MEDICINE [address] [place] [address] * CT Lumbar Spine Wo Contrast (05/07/2017 7:57 PM) Specimen Performing Laboratory [address] [address] Narrative EXAMINATION: CT LUMBAR SPINE WO CONTRAST [...] at other levels more prominent at L3-4. [facility]-[id number] Procedure Note Hm Interface, Radiology Results Incoming - 05/07/2017 9:03 PM SALES AND MARKETING ADMINISTRATOR EXAMINATION: CT LUMBAR SPINE WO CONTRAST CLINICAL [...] at other levels more prominent at L3-4. [id number] after 06/16/2016 Insurance Payer Benefit Subscriber ID Type Phone Address Plan / Group [employer] [place] [facility] [place] [facility] Home: [address] [place], [place] [phone] [place] [address]
--- OUTSIDE RECORDS SUMMARY | 2017-06-17 14:18 | XMS REPORT | Clinical Summary ---
Author Author [facility] Address Unknown Phone Unavailable Care Team Providers Care Yield Loss Inspector Name Role Phone Asked, Pcp PCP Unavailable [...] Dx); Chronic arterial ischemic stroke; Cancer 05/07/2017 [facility] General Internal Medicine Kavita Coker MD Sciatica of left side - Encounter Genaro Mata MD (Primary Dx); 05/09/2017 Jericho Ayala MD Weakness of left lower extremity 03/06/2017 [facility] Radiology Angel Bain MD Pseudarthrosis after Encounter [...] Taken Blood Pressure 122/66 05/24/2017 1:37 PM BANK APPRAISER Pulse 68 05/24/2017 1:37 PM BANK APPRAISER Temperature 36.7 C (98 F) 05/24/2017 1:37 PM BANK APPRAISER Respiratory Rate 18 05/24/2017 1:37 PM BANK APPRAISER Oxygen Saturation 98% 05/24/2017 1:37 PM BANK APPRAISER Inhaled Oxygen - - Concentration Weight 89 kg (196 lb 4.8 oz) 05/07/2017 11:47 PM BANK APPRAISER Height 172.7 cm (5' 8") 05/24/2017 1:37 PM BANK APPRAISER Body Mass Index 30.74 05/07/2017 11:47 PM BANK APPRAISER Plan of Treatment Health Maintenance Due Date Last Done Comments COLONOSCOPY 08/26/2011 INFLUENZA VACCINE 10/24/2016 Results * POC glucose (05/09/2017 5:05 AM) Only the most recent of 4 results within the time period is included. Component Value Ref Range POC glucose 223 (H) 65 - 99 mg/dL Comment: No Action Needed [facility] Notified RN Meter ID: [id number] Grill Prep Cook: Jb Ruiz Specimen Performing Laboratory [facility] DEPARTMENT OF PATHOLOGY AND GENOMIC MEDICINE [address] [place] [address] * Estimated GFR (05/09/2017 4:00 AM) Only [...] and Americans. Specimen Performing Laboratory Plasma specimen [facility] DEPARTMENT OF PATHOLOGY AND GENOMIC MEDICINE [address] [place] [address] * CBC with platelet and differential (05/09/2017 [...] (promyelocytes, myelocytes, metamyelocytes) Specimen Performing Laboratory Blood [facility] DEPARTMENT OF PATHOLOGY AND GENOMIC MEDICINE [address] [place] [address] * Basic metabolic panel (05/09/2017 4:00 AM) [...] 10.2 mg/dL Specimen Performing Laboratory Plasma specimen [facility] DEPARTMENT OF PATHOLOGY AND GENOMIC MEDICINE [address] [place] [address] * XR Spine Scoliosos 2-3 Views (05/08/2017 6:30 PM) Only the most recent of 2 results within the time period is included. Specimen Performing Laboratory [facility] [address] [place] [address] Narrative EXAMINATION:XR SPINE SCOLIOSIS 2-3 VIEWS CLINICAL [...] lumbar spinal canal due to recent myelogram. [facility]-[id number] Procedure Note Interface, Radiology Results Incoming - 05/08/2017 7:01 PM BANK APPRAISER EXAMINATION: XR SPINE SCOLIOSIS 2-3 VIEWS CLINICAL [...] lumbar spinal canal due to recent myelogram. [facility]-[id number] * CT Post Myelogram Lumbar (05/08/2017 2:45 PM) Specimen Performing Laboratory HM [facility] [address] [place] [address] Narrative EXAMINATION:CT POST MYELOGRAM LUMBAR CLINICAL HISTORY:lower [...] impingement of the left L5 nerve root. [facility]-[id number] Procedure Note Interface, Radiology Results Incoming - 05/08/2017 3:47 PM BANK APPRAISER EXAMINATION: CT POST MYELOGRAM LUMBAR CLINICAL HISTORY: [...] impingement of the left L5 nerve root. [facility]-[id number] * IR Myelogram Lumb Incl Inj W S&I (05/08/2017 1:57 PM) Specimen Performing Laboratory [facility] [address] [place] [address] Narrative EXAMINATION:IR MYELOGRAM LUMB INCL INJ W [...] No canal narrowing or root sleeve defects. [facility]-[id number] Procedure Note Interface, Radiology Results Incoming - 05/08/2017 3:51 PM BANK APPRAISER EXAMINATION: IR MYELOGRAM LUMB INCL INJ W [...] No canal narrowing or root sleeve defects. [facility]-[id number] * XR Chest 1 Vw Portable (05/08/2017 9:37 AM) Specimen Performing Laboratory [address] [address] Narrative EXAMINATION:XR CHEST 1 VW PORTABLE CLINICAL HISTORY:SHORTNESS OF BREATH COMPARISON:None. IMPRESSION: 1.The cardiomediastinal silhouette is slightly enlarged. 2.There is no evidence of pulmonary edema. There are no focal consolidations or effusions. 3.There is mild scoliotic curvature of the thoracic spine. A couple of healed rib fractures noted on the left. [facility]-[id number] Procedure Note [facility], Radiology Results Incoming - 05/08/2017 10:01 AM BANK APPRAISER EXAMINATION: XR CHEST 1 VW PORTABLE CLINICAL HISTORY: SHORTNESS OF BREATH COMPARISON: None. IMPRESSION: 1. The cardiomediastinal silhouette is slightly enlarged. 2. There is no evidence of pulmonary edema. There are no focal consolidations or effusions. 3. There is mild scoliotic curvature of the thoracic spine. A couple of healed rib fractures noted on the left. [facility]-[id number] * ECG 12 lead (05/08/2017 8:32 AM) Component Value Ref Range Ventricular rate 68 Atrial rate 68 [place] interval 172 QRSD interval 100 QT interval 434 QTC interval 461 P axis 1 42 QRS axis 1 -8 T wave axis 6 EKG impression Normal sinus rhythm-Incomplete right bundle branch block-Nonspecific T wave abnormality-Prolonged QT-Abnormal ECG-No previous ECGs available- Specimen Performing Laboratory [facility] MUSE [address] [place] [address] * Partial thromboplastin time, activated (05/08/2017 6:28 AM) Component Value Ref Range PTT 29.2 23.0 - 36.0 sec Comment: PTT therapeutic range for unfractionated heparin is 61.0-112.0 seconds which corresponds to Anti-Xa 0.3-0.7 U/ml. Specimen Performing Laboratory Blood [facility] DEPARTMENT OF PATHOLOGY AND GENOMIC MEDICINE [address] [place] [address] * Prothrombin time with INR (05/08/2017 6:28 AM) Component Value Ref Range Prothrombin time 13.1 12.0 - 15.0 sec INR 1.0 Comment: The International Normalized Ratio (INR) is a therapeutic monitoring tool for patients who are stable on oral anticoagulant therapy. An INR of 2.0-3.0 is suggested for deep vein thrombosis/pulmonary embolism. Specimen Performing Laboratory Blood [facility] [address] [address] * Total iron binding capacity (05/08/2017 12:48 AM) Component Value Ref Range Iron level 40 (L) 59 - 158 ug/dL Iron binding capacity 326 200 - 400 ug/dL % Saturation 12.3 (L) 20.0 - 40.0 % Specimen Performing Laboratory Plasma specimen [facility] [address] [address] * Phosphorus level (05/08/2017 12:48 AM) Component Value Ref Range Phosphorus 2.9 2.4 - 4.5 mg/dL Specimen Performing Laboratory Plasma specimen [facility] DEPARTMENT PATHOLOGY [address] [address] * Magnesium level (05/08/2017 12:48 AM) Component Value Ref Range Magnesium 2.4 1.6 - 2.6 mg/dL Specimen Performing Laboratory Plasma specimen [facility] [address] [address] * Folate level (05/08/2017 12:48 AM) Component Value Ref Range Folate 11.6 4.8 - 24.2 ng/mL Specimen Performing Laboratory Serum [facility] [address] [address] * Ferritin level (05/08/2017 12:48 AM) Component Value Ref Range Ferritin level 60 30 - 400 ng/mL Specimen Performing Laboratory Plasma specimen [facility] [address] [address] * Vitamin B12 level (05/08/2017 12:48 AM) Component Value Ref Range Vitamin B12 252 211 - 946 pg/mL Comment: Significant overlap exists between normal and deficiency states. However, most patients with deficiencies will have Serum B12 <200 pg/mL. Specimen Performing Laboratory Serum [facility] [address] [address] * Carcinoembryonic antigen (CEA) (05/08/2017 12:48 AM) Component Value Ref Range CEA <1.2 0.0 - 3.8 ng/mL Comment: Reference range for heavy smokers: 0.0 - 5.5 ng/mL The BARBARA Pinky 8000 CEA immunoassay was used. Results obtained with different assay methods or kits should not be used interchangeably and may be different. Specimen Performing Laboratory Serum [facility] DEPARTMENT OF PATHOLOGY AND GENOMIC MEDICINE [address] [place] [address] * Lipid panel (05/08/2017 12:48 AM) Component [...] (>=200 mg/dL) Specimen Performing Laboratory Plasma specimen [facility] DEPARTMENT OF PATHOLOGY AND GENOMIC MEDICINE [address] [place] [address] * Comprehensive metabolic panel (05/08/2017 12:48 AM) [...] Protein 8.0 6.3 - 8.3 g/dL Comment: [place] 4.6-7.0 g/dL 1 week 4.4-7.6 g/dL 7 [...] 1.2 mg/dL Specimen Performing Laboratory Plasma specimen [facility] DEPARTMENT OF PATHOLOGY AND GENOMIC MEDICINE [address] [place], [place] [id number] * Manual differential (05/07/2017 8:50 PM) Component [...] cells Occasional Ovalocytes Moderate Specimen Performing Laboratory [facility] DEPARTMENT OF PATHOLOGY AND GENOMIC MEDICINE [address] [place] [address] * CT Lumbar Spine Wo Contrast (05/07/2017 7:57 PM) Specimen Performing Laboratory [address] [address] Narrative EXAMINATION: CT LUMBAR SPINE WO CONTRAST [...] at other levels more prominent at L3-4. [facility]-[id number] Procedure Note Hm Interface, Radiology Results Incoming - 05/07/2017 9:03 PM BANK APPRAISER EXAMINATION: CT LUMBAR SPINE WO CONTRAST CLINICAL [...] at other levels more prominent at L3-4. [facility]-[id number] after 06/16/2016 Insurance Payer Benefit Subscriber ID Type Phone Address Plan / Group [employer] xxxxxxxxx [facility] [place] Home: [address] [place], [place] [phone] [place] [address]
[2017-06-17] MEDS ORDERED: KETOROLAC TROMETHAMINE 60 MG/2 ML VIAL IM ONE (14:45)
--- NOTE | 2017-06-17 15:11 | Diagnostic Imaging Report ---
EXAM: LUMBAR 3 VIEW DATE: 06/17/2017 2:32 PM INDICATION: \S\pain \[id number] \S\1445 \S\Y COMPARISON: None FINDINGS: Bilateral pedicle screws are present L4 and L5 with left pedicle screw S1 and bilateral screws extending through the SI joints. Vertical and horizontal stabilization rods present. Disc spacing device at L4-5 and L5-S1 present. Marker of L5-S1 disc spacing device is just posterior to the posterior cortex of L5. Hernia repair changes are present on the left. IMPRESSION: Postsurgical changes as above. Signed by: Dr. Terry Flores MD on 06/17/2017 3:08 PM
[2017-06-17] MEDS ORDERED: DEXAMETHASONE 4 MG TAB PO ONE (16:00)
[2017-06-17 16:04] VITALS: BP 128/77
[2017-06-17 16:05] LABS: BILIRUBIN,URINE NEGATIVE (NEGATIVE); CLARITY,URINE CLEAR (CLEAR); COLOR,URINE YELLOW (YELLOW); KETONES,URINE NEGATIVE (NEGATIVE); LEUKOCYTE ESTERASE ,URINE NEGATIVE (NEGATIVE); NITRITE,URINE NEGATIVE (NEGATIVE); PROTEIN,URINE DIPSTICK NEGATIVE (NEGATIVE); URINE UROBILINOGEN 0.2 mg/dL (0.2 - 1)
== END 2017-06-17 16:25 | disposition home or self-care (01) ==
LOC: ER 14:15
DX: M54.42 Lumbago with sciatica, left side (principal); M79.662 Pain in left lower leg; M54.16 Radiculopathy, lumbar region; I10 Essential (primary) hypertension
CPT/HCPCS: 72100; 81001; 99283; J1885

== ENCOUNTER 2017-07-04 16:06 | Emergency (ER) | payer OTHER ==
[~2017-07-04] VITALS: Ht 172.7 cm; Wt 95.7 kg
--- OUTSIDE RECORDS SUMMARY | 2017-07-04 16:11 | XMS REPORT | Clinical Summary ---
Author Author [facility] Address Unknown Phone Unavailable Care Team Providers Care Conference Service Coordinator Name Role Phone Asked, Pcp PCP Unavailable [...] Dx); Chronic arterial ischemic stroke; Cancer 05/07/2017 [facility] General Internal Medicine Kavita Coker MD Sciatica of left side - Encounter Genaro Mata MD (Primary Dx); 05/09/2017 Jericho Ayala MD Weakness of left lower extremity 03/06/2017 [facility] Radiology Angel Bain MD Pseudarthrosis after Encounter fusion or arthrodesis 03/06/2017 [facility] Angel Bain MD Pseudarthrosis after Orders fusion or arthrodesis 03/06/2017 [facility] Angel Bain MD Pseudarthrosis after Orders fusion or arthrodesis (Primary Dx) after 07/03/2016 Social History Tobacco Use Types Packs/Day Years Used Date Never Smoker Smokeless Tobacco: Never Used Alcohol Use Drinks/Week oz/Week Comments No Sex Assigned at Date Recorded Not on file Last Filed Vital Signs Vital Sign Reading Time Taken Blood Pressure 122/66 05/24/2017 1:37 PM AUTOMOTIVE PARTS COUNTER ASSOCIATE Pulse 68 05/24/2017 1:37 PM AUTOMOTIVE PARTS COUNTER ASSOCIATE Temperature 36.7 C (98 F) 05/24/2017 1:37 PM AUTOMOTIVE PARTS COUNTER ASSOCIATE Respiratory Rate 18 05/24/2017 1:37 PM AUTOMOTIVE PARTS COUNTER ASSOCIATE Oxygen Saturation 98% 05/24/2017 1:37 PM AUTOMOTIVE PARTS COUNTER ASSOCIATE Inhaled Oxygen - - Concentration Weight 89 kg (196 lb 4.8 oz) 05/07/2017 11:47 PM AUTOMOTIVE PARTS COUNTER ASSOCIATE Height 172.7 cm (5' 8") 05/24/2017 1:37 PM AUTOMOTIVE PARTS COUNTER ASSOCIATE Body Mass Index 30.74 05/07/2017 11:47 PM AUTOMOTIVE PARTS COUNTER ASSOCIATE Plan of Treatment Health Maintenance Due Date Last Done Comments COLONOSCOPY 08/26/2011 INFLUENZA VACCINE 10/24/2017 Results * POC glucose (05/09/2017 5:05 AM) Only the most recent of 4 results within the time period is included. Component Value Ref Range POC glucose 223 (H) 65 - 99 mg/dL Comment: No Action Needed [facility] Notified RN Meter ID: [id number] Asphalt Heater Operator: Jb Ruiz Specimen Performing Laboratory [facility] DEPARTMENT OF PATHOLOGY AND GENOMIC MEDICINE [address] [place] [address] * Estimated GFR (05/09/2017 4:00 AM) Only [...] and Americans. Specimen Performing Laboratory Plasma specimen [facility] DEPARTMENT OF PATHOLOGY AND GENOMIC MEDICINE [address] [place] [address] * CBC with platelet and differential (05/09/2017 [...] (promyelocytes, myelocytes, metamyelocytes) Specimen Performing Laboratory Blood [facility] DEPARTMENT OF PATHOLOGY AND GENOMIC MEDICINE [address] [place] [address] * Basic metabolic panel (05/09/2017 4:00 AM) [...] 10.2 mg/dL Specimen Performing Laboratory Plasma specimen [facility] DEPARTMENT OF PATHOLOGY AND GENOMIC MEDICINE [address] [place] [address] * XR Spine Scoliosos 2-3 Views (05/08/2017 6:30 PM) Only the most recent of 2 results within the time period is included. Specimen Performing Laboratory [facility] [address] [place] [address] Narrative EXAMINATION:XR SPINE SCOLIOSIS 2-3 VIEWS CLINICAL [...] lumbar spinal canal due to recent myelogram. [facility]-[id number] Procedure Note Interface, Radiology Results Incoming - 05/08/2017 7:01 PM AUTOMOTIVE PARTS COUNTER ASSOCIATE EXAMINATION: XR SPINE SCOLIOSIS 2-3 VIEWS CLINICAL [...] lumbar spinal canal due to recent myelogram. [facility]-[id number] * CT Post Myelogram Lumbar (05/08/2017 2:45 PM) Specimen Performing Laboratory [facility] [address] [place] [address] Narrative EXAMINATION:CT POST MYELOGRAM LUMBAR CLINICAL HISTORY:lower [...] impingement of the left L5 nerve root. [facility]-[id number] Procedure Note Interface, Radiology Results Incoming - 05/08/2017 3:47 PM AUTOMOTIVE PARTS COUNTER ASSOCIATE EXAMINATION: CT POST MYELOGRAM LUMBAR CLINICAL HISTORY: [...] impingement of the left L5 nerve root. [facility]-[id number] * IR Myelogram Lumb Incl Inj W S&I (05/08/2017 1:57 PM) Specimen Performing Laboratory [facility] [address] [place] [address] Narrative EXAMINATION:IR MYELOGRAM LUMB INCL INJ W [...] No canal narrowing or root sleeve defects. [facility]-[id number] Procedure Note Interface, Radiology Results Incoming - 05/08/2017 3:51 PM AUTOMOTIVE PARTS COUNTER ASSOCIATE EXAMINATION: IR MYELOGRAM LUMB INCL INJ W [...] No canal narrowing or root sleeve defects. [facility]-[id number] * XR Chest 1 Vw Portable (05/08/2017 9:37 AM) Specimen Performing Laboratory [address] [address] Narrative EXAMINATION:XR CHEST 1 VW PORTABLE CLINICAL HISTORY:SHORTNESS OF BREATH COMPARISON:None. IMPRESSION: 1.The cardiomediastinal silhouette is slightly enlarged. 2.There is no evidence of pulmonary edema. There are no focal consolidations or effusions. 3.There is mild scoliotic curvature of the thoracic spine. A couple of healed rib fractures noted on the left. [facility]-[id number] Procedure Note [facility], Radiology Results Incoming - 05/08/2017 10:01 AM AUTOMOTIVE PARTS COUNTER ASSOCIATE EXAMINATION: XR CHEST 1 VW PORTABLE CLINICAL HISTORY: SHORTNESS OF BREATH COMPARISON: None. IMPRESSION: 1. The cardiomediastinal silhouette is slightly enlarged. 2. There is no evidence of pulmonary edema. There are no focal consolidations or effusions. 3. There is mild scoliotic curvature of the thoracic spine. A couple of healed rib fractures noted on the left. [facility]-[id number] * ECG 12 lead (05/08/2017 8:32 AM) Component Value Ref Range Ventricular rate 68 Atrial rate 68 [place] interval 172 QRSD interval 100 QT interval 434 QTC interval 461 P axis 1 42 QRS axis 1 -8 T wave axis 6 EKG impression Normal sinus rhythm-Incomplete right bundle branch block-Nonspecific T wave abnormality-Prolonged QT-Abnormal ECG-No previous ECGs available- Specimen Performing Laboratory [facility] MUSE [address] [place] [address] * Partial thromboplastin time, activated (05/08/2017 6:28 AM) Component Value Ref Range PTT 29.2 23.0 - 36.0 sec Comment: PTT therapeutic range for unfractionated heparin is 61.0-112.0 seconds which corresponds to Anti-Xa 0.3-0.7 U/ml. Specimen Performing Laboratory Blood [facility] DEPARTMENT OF PATHOLOGY AND GENOMIC MEDICINE [address] [place] [address] * Prothrombin time with INR (05/08/2017 6:28 AM) Component Value Ref Range Prothrombin time 13.1 12.0 - 15.0 sec INR 1.0 Comment: The International Normalized Ratio (INR) is a therapeutic monitoring tool for patients who are stable on oral anticoagulant therapy. An INR of 2.0-3.0 is suggested for deep vein thrombosis/pulmonary embolism. Specimen Performing Laboratory Blood [facility] [address] [address] * Total iron binding capacity (05/08/2017 12:48 AM) Component Value Ref Range Iron level 40 (L) 59 - 158 ug/dL Iron binding capacity 326 200 - 400 ug/dL % Saturation 12.3 (L) 20.0 - 40.0 % Specimen Performing Laboratory Plasma specimen [facility] [address] [address] * Phosphorus level (05/08/2017 12:48 AM) Component Value Ref Range Phosphorus 2.9 2.4 - 4.5 mg/dL Specimen Performing Laboratory Plasma specimen [facility] DEPARTMENT PATHOLOGY [address] [address] * Magnesium level (05/08/2017 12:48 AM) Component Value Ref Range Magnesium 2.4 1.6 - 2.6 mg/dL Specimen Performing Laboratory Plasma specimen [facility] [address] [address] * Folate level (05/08/2017 12:48 AM) Component Value Ref Range Folate 11.6 4.8 - 24.2 ng/mL Specimen Performing Laboratory Serum [facility] [address] [address] * Ferritin level (05/08/2017 12:48 AM) Component Value Ref Range Ferritin level 60 30 - 400 ng/mL Specimen Performing Laboratory Plasma specimen [facility] [address] [address] * Vitamin B12 level (05/08/2017 12:48 AM) Component Value Ref Range Vitamin B12 252 211 - 946 pg/mL Comment: Significant overlap exists between normal and deficiency states. However, most patients with deficiencies will have Serum B12 <200 pg/mL. Specimen Performing Laboratory Serum [facility] [address] [address] * Carcinoembryonic antigen (CEA) (05/08/2017 12:48 AM) Component Value Ref Range CEA <1.2 0.0 - 3.8 ng/mL Comment: Reference range for heavy smokers: 0.0 - 5.5 ng/mL The BARBARA Pinky 8000 CEA immunoassay was used. Results obtained with different assay methods or kits should not be used interchangeably and may be different. Specimen Performing Laboratory Serum [facility] DEPARTMENT OF PATHOLOGY AND GENOMIC MEDICINE [address] [place] [address] * Lipid panel (05/08/2017 12:48 AM) Component [...] (>=200 mg/dL) Specimen Performing Laboratory Plasma specimen [facility] DEPARTMENT OF PATHOLOGY AND GENOMIC MEDICINE [address] [place] [address] * Comprehensive metabolic panel (05/08/2017 12:48 AM) [...] Protein 8.0 6.3 - 8.3 g/dL Comment: [place] 4.6-7.0 g/dL 1 week 4.4-7.6 g/dL 7 [...] 1.2 mg/dL Specimen Performing Laboratory Plasma specimen [facility] DEPARTMENT OF PATHOLOGY AND GENOMIC MEDICINE [address] [place], [place] [id number] * Manual differential (05/07/2017 8:50 PM) Component [...] cells Occasional Ovalocytes Moderate Specimen Performing Laboratory [facility] DEPARTMENT OF PATHOLOGY AND GENOMIC MEDICINE [address] [place] [address] * CT Lumbar Spine Wo Contrast (05/07/2017 7:57 PM) Specimen Performing Laboratory [address] [address] Narrative EXAMINATION: CT LUMBAR SPINE WO CONTRAST [...] at other levels more prominent at L3-4. [facility]-[id number] Procedure Note Hm Interface, Radiology Results Incoming - 05/07/2017 9:03 PM AUTOMOTIVE PARTS COUNTER ASSOCIATE EXAMINATION: CT LUMBAR SPINE WO CONTRAST CLINICAL [...] at other levels more prominent at L3-4. [id number] after 07/03/2016 Insurance Payer Benefit Subscriber ID Type Phone Address Plan / Group [employer] xxxxxxxxx [facility] [place] STAR[employer]PLUS [facility] Home: [address] [place], [place] [phone] [place] [address]
--- OUTSIDE RECORDS SUMMARY | 2017-07-04 16:11 | XMS REPORT | Continuity of Care Document ---
Author Author [facility] Organization [facility] Address [address] [place] [address] Phone Unavailable Care Team Providers Care Dock Coordinator Name Role Phone NO, PCP PCP Unavailable Insurance Providers Guarantor Harvey Sumner Address [address] [place] [address] Email PTDECLINED Payer [facility] Policy Number [id number] Subscriber's Name Nichole Sumnermary alice Walters Relationship 18 Self / Same As Patient Effective Date 15 Advance Directives Directive Response Recorded Date/Time Does the patient have an advance directive? No 05/23/17 7:55pm If yes, is advance directive on file with [facility]? No 05/23/17 7:55pm If not on file with [facility] will patient provide a copy? No 05/23/17 7:55pm Do you have a Directive to Physician? No 06/17/17 3:44pm Do you have a Medical Power of Assistant Front Desk Manager? No 06/17/17 3:44pm Do you have an out of hospital Do Not Resuscitate Order? No 06/17/17 3:44pm Do you have any special needs we should be aware of? No 06/17/17 3:44pm Do you have a support person here with you today? No 06/17/17 3:44pm Did patient receive Notice of Privacy Practices? Yes 06/17/17 3:44pm Did patient receive patient rights and responsibilities? Yes 06/17/17 3:44pm Problems No problem information available. Medications No medication information available. Social History Smoking Status Start Date Stop Date Never Smoker Hospital Discharge Instructions No hospital discharge instruction information available. Plan of Care Discharge Date 06/17/17 4:25pm Disposition HOME, SELF-CARE Condition at Discharge Improved Instructions/Education Provided Sciatica Back Pain Prescriptions See Medication Section Additional Instructions/Education DIAGNOSIS: ACUTE LEFT SIDED SCIATICA WITH LOW BACK PAIN PRESCRIPTIONS: 1. TYLENOL #3 1-2 TABS EVERY 4-6 HOURS NEEDED 2. MEDROL DOSE PACK ACCORDING TO DIRECTIONS 3. MOTRIN 400 MG EVERY 6 HOURS 4. SKELAXIN 800 MG EVERY 6 HOURS TAKE MEDS PRESCRIBED. FOLLOW UP WIHT YOUR PRIMARY CARE PHYSICIAN IN 2 DAYS. CALL FOR AN APPOINTMENT. RETURN TO ER FOR WORSENING SYMPTOMS OR ANY OTHER CONCERNS OR PROBLEMS. Functional Status No functional status information available. Allergies, Adverse Reactions, Alerts No known allergies. Immunizations No immunization information available. Vital Signs Acute Vital Signs Vital Response Date/Time Temperature (Fahrenheit) 98.0 degrees F (97.6 - 99.5) 06/17/2017 4:04pm Pulse Pulse Rate (adult) 85 bpm (60 - 90) 06/17/2017 4:04pm Respiratory Rate 16 bpm (12 - 24) 06/17/2017 4:04pm Blood Pressure 128/77 mm Hg 06/17/2017 4:04pm Height 5 ft 8 in 06/17/2017 2:22pm Weight 211 lb 06/17/2017 2:22pm Body Mass Index 32.1 kg/m^2 06/17/2017 2:22pm Results Laboratory Results Test Name Result Units Flags Reference Collection Date/Time Result Date/ Time Comments Urine Color YELLOW YELLOW 06/17/2017 4:00pm 06/17/2017 4:06pm Urine Clarity CLEAR CLEAR 06/17/2017 4:00pm 06/17/2017 4:06pm Urine Specific [place] 1.025 1.010-1.025 06/17/2017 4:00pm 2017 4:06pm Urine pH 5 5 - 7 06/17/2017 4:00pm 06/17/2017 4:06pm Urine Leukocyte Esterase NEGATIVE NEGATIVE 06/17/2017 4:00pm 2017 4:06pm Urine Nitrite NEGATIVE NEGATIVE 06/17/2017 4:00pm 06/17/2017 4:06pm Urine Protein NEGATIVE NEGATIVE 06/17/2017 4:00pm 06/17/2017 4:06pm Urine Glucose (UA) NEGATIVE NEGATIVE 06/17/2017 4:00pm 06/17/2017 4: 06pm Urine Ketones NEGATIVE NEGATIVE 06/17/2017 4:00pm 06/17/2017 4:06pm Urine Urobilinogen 0.2 mg/dL 0.2 - 1 06/17/2017 4:00pm 06/17/2017 4: 06pm Urine Bilirubin NEGATIVE NEGATIVE 06/17/2017 4:00pm 06/17/2017 4: 06pm Urine Blood NEGATIVE NEGATIVE 06/17/2017 4:00pm 06/17/2017 4:06pm Procedures No procedure information available. Encounters Encounter Location Arrival/Admit Date Discharge/Depart Date Attending Provider [facility] 06/17/17 2:15pm 4:25pm DONALD CASTRO Departed Emergency Room [facility] 06/07/17 10:59am 06/07 11:50am DONALD CASTRO Departed Emergency Room [facility] 05/23/17 4:27pm 8:37pm DAMI HUMPHREYS MD
== END 2017-07-04 17:03 | disposition left against medical advice (07) ==
LOC: ER 16:06
DX: M54.5 Low back pain (principal); G89.29 Other chronic pain

== ENCOUNTER 2018-05-20 10:32 | Emergency (ER) | payer OTHER ==
[~2018-05-20] VITALS: Ht 170.2 cm; Wt 95.3 kg
--- OUTSIDE RECORDS SUMMARY | 2018-05-20 10:36 | XMS REPORT | Clinical Summary ---
Author Author [facility] Address Unknown Phone Unavailable Care Team Providers Care Sheriff Name Role Phone Asked, No Pcp PCP Unavailable Allergies Comments Active Allergy Reactions Severity Noted Date Penicillin GI 05/07/2017 Intolerance Medications End Date Status Medication Sig Dispensed Refills Start Date Active diclofenac (VOLTAREN) 1 % Apply 1 2 gel application 7 topically 4 (four) times a day as needed for pain. Active traMADol (ULTRAM) 50 mg Take 50 mg by 0 tablet mouth every 6 8 (six) hours as needed for pain. for pain Active venlafaxine XR Take 75 mg by 3 (EFFEXOR-XR) 75 MG 24 hr mouth daily 8 capsule with breakfast. 06/08/2017 atorvastatin (LIPITOR) 40 Take 1 tablet 30 tablet 0 MG tablet (40 mg total) 8 by mouth nightly for 30 days. 06/08/2017 famotidine (PEPCID) 20 MG Take 1 tablet 60 tablet 0 tablet (20 mg total) 8 by mouth 2 (two) times a day for 30 days. 06/08/2017 aspirin 81 mg chewable Chew 1 tablet 30 tablet 0 tablet (81 mg total) 8 daily for 30 days. 06/08/2017 baclofen (LIORESAL) 20 MG Take 1 tablet 90 tablet 0 tablet (20 mg total) 8 by mouth 3 (three) times a day for 30 days. 06/08/2017 gabapentin (NEURONTIN) Take 1 90 capsule 0 300 mg capsule capsule (300 8 mg total) by mouth 3 (three) times a day for 30 days. 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 Iron deficiency anemia 05/09/2017 Hyperlipidemia 05/09/2017 Weakness of left lower extremity 05/08/2017 Sciatica of left side 05/07/2017 Encounters Care Team Description Date Type Specialty Raymond Cornelius MD Chronic left-sided low back pain, with sciatica presence unspecified (Primary Dx); Chronic arterial ischemic stroke; Cancer 05/24/2017 Emergency Emergency Medicine after 05/19/2017 Social History Date Tobacco Use Types Packs/Day Years Used Never Smoker Smokeless Tobacco: Never Used Alcohol Use Drinks/Week oz/Week Comments No Sex Assigned at Date Recorded Not on file Industry Job Start Date Occupation Not on file Not on file Not on file Travel End Travel History Travel Start No recent travel history available. Last Filed Vital Signs Time Taken Vital Sign Reading 05/24/2017 1:37 PM SERVICER Blood Pressure 122/66 05/24/2017 1:37 PM SERVICER Pulse 68 05/24/2017 1:37 PM SERVICER Temperature 36.7 C (98 F) 05/24/2017 1:37 PM SERVICER Respiratory Rate 18 05/24/2017 1:37 PM SERVICER Oxygen Saturation 98% - Inhaled Oxygen - Concentration - Weight - 05/24/2017 1:37 PM SERVICER Height 172.7 cm (5' 8") - Body Mass Index - Plan of Treatment Health Maintenance Due Date Last Done Comments COLON CANCER SCREENING 08/26/2011 SHINGLES VACCINES (#1) 08/26/2011 INFLUENZA VACCINE 10/24/2017 Results Not on fileafter 05/19/2017 Insurance Payer Benefit Subscriber ID Type Phone Address Plan / Group [employer] x[employer] HMO [employer] [place]SE [place] ([place]) [place] [address] Advance Directives Patient has advance care planning documents on file. For more information, brandi love contact: [facility] [address] [place] [address]
--- OUTSIDE RECORDS SUMMARY | 2018-05-20 10:38 | XMS REPORT | Summary of Care ---
Author Author [facility] Organization [facility] Address Unknown Phone Unavailable Encounter MAXWELL Guzman(ALVIN) [id number] Date(s): 07/27/16 - 07/28/16 [facility] [address] [place] [address]- Discharge Diagnosis: Back pain Discharge Diagnosis: Abdominal pain Discharge Diagnosis: Sciatica Discharge Diagnosis: Fall Discharge Diagnosis: Seroma Discharge Disposition: Home or Self Care Attending Physician: Eli Bennett DO Vital Signs 1 2 3 Most recent to oldest [Reference Range]: 172.72 cm (07/27/16 10:32 PM) Height 98.1 DegF (07/28/16 4:05 AM) 98.8 DegF (07/27/16 10:32 PM) Temperature Oral [96.4-99.1 DegF] 163/94 mmHg *HI* (07/28/16 4:05 AM) 145/89 mmHg *HI* (07/28/16 12:38 AM) 157/94 mmHg *HI* (07/27/16 10:32 PM) Blood Pressure [90-140/60-90 mmHg] 18 BRMIN (07/28/16 4:05 AM) 19 BRMIN (07/28/16 12:38 AM) 18 BRMIN (07/27/16 10:32 PM) Respiratory Rate [14-20 BRMIN] 71 bpm (07/28/16 4:05 AM) 66 bpm (07/28/16 12:38 AM) 70 bpm (07/27/16 10:32 PM) Peripheral Pulse Rate [60-100 bpm] 86.364 kg (07/27/16 10:32 PM) Weight 28.95 m2 (07/27/16 10:32 PM) Body Mass Index Problem List Condition Effective Dates Status Health Status Informant Back Resolved problem(Confirmed) Cancer of Resolved colon(Confirmed) Allergies, Adverse Reactions, Alerts Substance Reaction Severity Status NKDA Active Medications Flexeril 10 mg oral tablet 10 mg, PO, TID, PRN Muscle Spasm, X 10 day, # 30 tab, 0 Refill(s) Start Date: 07/28/16 Stop Date: 08/07/16 Status: Ordered ibuprofen 600 mg oral tablet 600 mg=1 tab, PO, Q6H, PRN Pain or Fever, Take with food, X 10 day, # 40 tab, 0 Refill(s) Start Date: 07/28/16 Stop Date: 08/07/16 Status: Ordered Medrol Dosepak 4 mg oral tablet See Instructions, PO, Take by mouth as directed on label., # 1 Pack, 0 Refill(s) Start Date: 07/28/16 Stop Date: 08/03/16 Status: Ordered methylPREDNISolone SODium SUCCinate 125 mg, Route: IVP, ONCE, Dosing Weight 86.364, kg, Priority: STAT, Start date: 07/28/16 1:53:00 CDT, Stop date: 07/28/16 1:53:00 CDT Start Date: 07/28/16 Stop Date: 07/28/16 Status: Completed morphine Sulfate 4 mg, Route: IVP, ONCE, Dosing Weight 86.364, kg, Priority: STAT, Start date: 1:51:00 CDT, Stop date: 07/28/16 1:51:00 CDT Start Date: 07/28/16 Stop Date: 07/28/16 Status: Completed morphine Sulfate 4 mg, Route: IVP, ONCE, Dosing Weight 86.364, kg, Priority: STAT, Start date: 23:26:00 CDT, Stop date: 07/27/16 23:26:00 CDT Start Date: 07/27/16 Stop Date: 07/27/16 Status: Completed ondansetron 4 mg, Route: IVP, ONCE, Dosing Weight 86.364, kg, Priority: STAT, Start date: 23:26:00 CDT, Stop date: 07/27/16 23:26:00 CDT Start Date: 07/27/16 Stop Date: 07/27/16 Status: Completed Saline Flush 0.9% 10 mL, Route: IVP, Drug Form: INJ, Dosing Weight 86.364, kg, PRN, PRN Line Flush , Start date: 07/27/16 23:26:00 CDT, Duration: 30 day, Stop date: 08/26/16 23:25 :00 CDT Notes: (Same as: BD Posiflush) Start Date: 07/27/16 Stop Date: 07/28/16 Status: Discontinued Sodium Chloride 0.9% (Bolus) IV 1,000 mL, 2,000 ml/hr, Infuse Over: 30 minutes, Route: IV, ONCE, Priority: STAT, Dosing Weight 86.364 kg, Start date: 07/27/16 23:26:00 CDT, Duration: 1 doses or times, Stop date: 07/27/16 23:26:00 CDT Start Date: 07/27/16 Stop Date: 07/27/16 Status: Completed Tylenol with Codeine #3 oral tablet 1 tab, PO, Q6H, PRN as need for pain, X 4 day, # 16 tab, 0 Refill(s) Start Date: 07/28/16 Stop Date: 08/01/16 Status: Ordered Ultram 50 mg oral tablet 50 mg=1 tab, PO, Q6H, PRN pain, X 5 day, # 20 tab, 0 Refill(s) Start Date: 07/28/16 Stop Date: 07/28/16 Status: Discontinued Zofran 4 mg, Route: IVP, Drug form: INJ, ONCE, Dosing Weight 86.364, kg, Priority: STAT , Start date: 07/28/16 1:51:00 CDT, Stop date: 07/28/16 1:51:00 CDT Start Date: 07/28/16 Stop Date: 07/28/16 Status: Completed Results ELECTROLYTES Most recent to 1 oldest [Reference Range]: Sodium Lvl [135-145 140 mEq/L mEq/L] (07/27/16 11:51 PM) Potassium Lvl 3.7 mEq/L [3.5-5.1 mEq/L] (07/27/16 11:51 PM) Chloride Lvl [95-109 103 mEq/L mEq/L] (07/27/16 11:51 PM) CO2 [24-32 mEq/L] 28 mEq/L (07/27/16 11:51 PM) AGAP [10.0-20.0 12.7 mEq/L mEq/L] (07/27/16 11:51 PM) CHEM PANEL Most recent to 1 oldest [Reference Range]: Creatinine Lvl 1.00 mg/dL [0.50-1.40 mg/dL] (07/27/16 11:51 PM) eGFR 85 mL/min/1.73m2 1 *NA* (07/27/16 11:51 PM) BUN [7-22 mg/dL] 15 mg/dL (07/27/16 11:51 PM) B/C Ratio [6-25] 15 (07/27/16 11:51 PM) Glucose Lvl [70-99 86 mg/dL mg/dL] (07/27/16 11:51 PM) Total Protein 8.2 g/dL [6.4-8.4 g/dL] (07/27/16 11:51 PM) Albumin Lvl [3.5-5.0 4.0 g/dL g/dL] (07/27/16 11:51 PM) Globulin [2.7-4.2 4.2 g/dL g/dL] (07/27/16 11:51 PM) A/G Ratio [0.7-1.6] 1.0 (07/27/16 11:51 PM) Calcium Lvl 9.4 mg/dL [8.5-10.5 mg/dL] (07/27/16 11:51 PM) ALT [0-65 unit/L] 25 unit/L (07/27/16 11:51 PM) AST [0-37 unit/L] 17 unit/L (07/27/16 11:51 PM) Alk Phos [39-136 88 unit/L unit/L] (07/27/16 11:51 PM) Bili Total [0.2-1.3 0.3 mg/dL mg/dL] (07/27/16 11:51 PM) Lipase Lvl [73-393 91 unit/L unit/L] (07/27/16 11:51 PM) 1Result Comment: The eGFR is calculated using the CKD-EPI formula. In most young, healthy individuals the eGFR will be >90 mL/min/1.73m2. The eGFR declines with age. An eGFR of 60-89 may be normal in some populations, particularly the elderly, for whom the CKD-EPI formula has not been extensively validated. Use of the eGFR is not recommended in the following populations: Individuals with unstable creatinine concentrations, including patients and those with serious co-morbid conditions. Patients with extremes in muscle mass or diet. The data above are obtained from the National Kidney Disease Education Program ( NKDEP) which additionally recommends that when the eGFR is used in patients with extremes of body mass index for purposes of drug dosing, the eGFR should be mul tiplied by the estimated BMI. URINE AND STOOL Most recent to 1 oldest [Reference Range]: UA Turbidity [Clear] Clear (07/28/16 1:00 AM) UA Color Ltyellow *NA* (07/28/16 1:00 AM) UA pH [5.0-8.0] 6.0 (07/28/16 1:00 AM) UA Spec Grav 1.018 [<=1.030] (07/28/16 1:00 AM) UA Glucose [Negative Negative mg/dL mg/dL] *NA* (07/28/16 1:00 AM) UA Blood [Negative] Negative (07/28/16 1:00 AM) UA Ketones [Negative Negative mg/dL mg/dL] *NA* (07/28/16 1:00 AM) UA Protein [Negative Negative mg/dL mg/dL] (07/28/16 1:00 AM) UA Urobilinogen <=1.0 mg/dL [0.1-1.0 mg/dL] *NA* (07/28/16 1:00 AM) UA Bili [Negative] Negative *NA* (07/28/16 1:00 AM) UA Leuk Est Negative [Negative] (07/28/16 1:00 AM) UA Nitrite Negative [Negative] (07/28/16 1:00 AM) UA WBC [0-5 /HPF] 1 /HPF (07/28/16 1:00 AM) UA RBC [0-2 /HPF] 3 /HPF *HI* (07/28/16 1:00 AM) UA Sq Epi [Few /LPF] Occasional /LPF *NA* (07/28/16 1:00 AM) UA Mucus [None Seen Few /LPF /LPF] *NA* (07/28/16 1:00 AM) HEMATOLOGY Most recent to 1 oldest [Reference Range]: WBC [3.7-10.4 K/CMM] 6.9 K/CMM (07/27/16 11:51 PM) RBC [4.70-6.10 4.75 M/CMM M/CMM] (07/27/16 11:51 PM) Hgb [14.0-18.0 g/dL] 13.5 g/dL *LOW* (07/27/16 11:51 PM) Hct [42.0-54.0 %] 39.9 % *LOW* (07/27/16 11:51 PM) MCV [80.0-94.0 fL] 84.1 fL (07/27/16 11:51 PM) MCH [27.0-31.0 pg] 28.4 pg (07/27/16 11:51 PM) MCHC [32.0-36.0 33.8 g/dL g/dL] (07/27/16 11:51 PM) RDW [11.5-14.5 %] 14.9 % *HI* (07/27/16 11:51 PM) Platelet [133-450 225 K/CMM K/CMM] (07/27/16 11:51 PM) MPV [7.4-10.4 fL] 8.3 fL (07/27/16 11:51 PM) Segs [45.0-75.0 %] 66.5 % (07/27/16 11:51 PM) Lymphocytes 22.4 % [20.0-40.0 %] (07/27/16 11:51 PM) Monocytes [2.0-12.0 6.2 % %] (07/27/16 11:51 PM) Eosinophils [0.0-4.0 4.0 % %] (07/27/16 11:51 PM) Basophils [0.0-1.0 0.9 % %] (07/27/16 11:51 PM) Segs-Bands # 4.6 K/CMM [1.5-8.1 K/CMM] (07/27/16 11:51 PM) Lymphocytes # 1.5 K/CMM [1.0-5.5 K/CMM] (07/27/16 11:51 PM) Monocytes # [0.0-0.8 0.4 K/CMM K/CMM] (07/27/16 11:51 PM) Eosinophils # 0.3 K/CMM [0.0-0.5 K/CMM] (07/27/16 11:51 PM) Basophils # [0.0-0.2 0.1 K/CMM K/CMM] (07/27/16 11:51 PM) Immunizations No data available for this section Procedures Procedure Date Related Diagnosis Body Site Back fusion Colon operation Social History Social History Type Response Smoking Status Never smoker; Ready to change: No; Concerns about tobacco use in household: No; Exposure to Tobacco Smoke None; Cigarette Smoking Last 365 Days No; Reg Smoking Cessation Counseling No Assessment and Plan No data available for this section
--- OUTSIDE RECORDS SUMMARY | 2018-05-20 10:38 | XMS REPORT | Continuity of Care Document ---
Author Author Edgardo mendez [facility] Interface Address Unknown Phone Unavailable Problems Problem Status Onset Date Classification Date Reported Comments Source Chronic back pain 05/13/2018 05/16/2018 [facility], [place] LEG / HIP PAIN Active 05/13/2018 [facility] BACK PAIN Active 03/22/2018 [facility] FALL, NECK PAIN Active 02/18/2018 [facility] SPINAL ABCESS Active 01/02/2018 [facility] POST-OP ABCESS TO LUMBAR SPINE Active 12/24/2017 [facility] FOOT PAIN OR INJURY Active 12/24/2017 [facility] Sepsis, unspecified organism 11/07/2017 05/18/2018 [facility] DEHISCIENCE OF BACK SURGERY Active 10/29/2017 [facility] Sepsis 10/26/2017 05/18/2018 [facility] BACK PAIN OR INJURY Active 10/26/2017 [facility] HYPOCALCEMIA, ANEMIA, SEPSIS Active 10/26/2017 [facility] OTHER Active 10/26/2017 [facility] Chronic lumbar pain 07/05/2017 07/08/2017 [facility] LEFT LEG PAIN, BACK PAIN Active 07/05/2017 [facility] Low back pain 06/29/2017 09/28/2017 [facility] Spinal stenosis, lumbar region without neurogenic claudication 06/19/2017 09/17/2017 [facility] Lumbar stenosis 06/11/2017 09/17/2017 [facility] Back pain, chronic 05/07/2017 08/13/2017 [facility] Discharge Diagnosis: Acute low back pain 03/26/2017 03/29/2017 [facility] PAIN Active 02/18/2017 [facility] Discharge Diagnosis: Chronic back pain 01/09/2017 01/12/2017 [facility] Discharge Diagnosis: Chronic low back pain with sciatica 01/09/2017 01/12/2017 [facility] Discharge Diagnosis: Back pain 11/29/2016 12/02/2016 [facility] Discharge Diagnosis: Drug-seeking behavior 11/13/2016 11/16/2016 [facility] FALL Active 11/13/2016 [facility] Discharge Diagnosis: Generalized abdominal pain 11/02/2016 11/05/2016 [facility] ABDOMINAL PAIN Active 11/02/2016 [facility] Discharge Diagnosis: Acute left-sided low back pain with sciatica 10/24/2016 10/27/2016 [facility] CP Active 10/24/2016 [facility] Discharge Diagnosis: Abdominal pain 07/28/2016 07/31/2016 [facility] Discharge Diagnosis: Sciatica 07/28/2016 07/31/2016 [facility] Discharge Diagnosis: Fall 07/28/2016 07/31/2016 [facility] Discharge Diagnosis: Seroma 07/28/2016 07/31/2016 [facility] ABD PAIN Active 07/27/2016 [facility] Discharge Diagnosis: Chronic left lumbar radiculopathy 04/28/2016 05/01/2016 [facility] H/O: stroke Resolved 03/26/2009 Problem 05/18/2018 [facility] H/O: stroke Resolved 03/26/2009 Problem 09/28/2017 [facility], [place] Cancer of colon Resolved Problem 05/18/2018 [facility], [facility] Other chronic pain 05/18/2018 [facility] Arthrodesis status 08/03/2017 [facility] Arthritis Resolved Problem 05/18/2018 [facility] Depression Resolved Problem 05/18/2018 [facility] H/O osteoporosis Resolved Problem 05/18/2018 [facility] Hypertension Resolved Problem 05/18/2018 [facility] Morbid obesity Active Problem 05/18/2018 [facility] Pain in left leg 09/28/2017 [facility] Arthritis Resolved Problem 09/28/2017 [facility] Depression Resolved Problem 09/28/2017 [facility] H/O osteoporosis Resolved Problem 09/28/2017 [facility] Hypertension Resolved Problem 09/28/2017 [facility] Morbid obesity Active Problem 09/28/2017 [facility] Disruption of wound, unspecified, initial encounter 05/18/2018 [facility] Other urogenital candidiasis 05/18/2018 [facility] Hypokalemia 05/18/2018 [facility] Moderate protein-calorie malnutrition 05/18/2018 [facility] Body mass index 32.0-32.9, adult 05/18/2018 [facility] Dorsalgia, unspecified 05/18/2018 [facility] Major depressive disorder, single episode, unspecified 05/18/2018 [facility] Personal history of other malignant neoplasm of large intestine 05/18/2018 [facility] Essential hypertension 05/18/2018 [facility] DORSALGIA, UNSPECIFIED Active [facility] HYPOCALCEMIA Active [facility] ANEMIA, UNSPECIFIED Active [facility] SEPSIS, UNSPECIFIED ORGANISM Active [facility] Medications Medication Details Route Status Patient Instructions Ordering Provider Order Date Source Acetaminophen 300 MG / Codeine Phosphate 30 MG Oral Tablet [Tylenol with Codeine #3] 1 tab, PO, TID, PRN Pain, X 7 day, # 21 tab, 0 Refill(s) Active 05/13/2018 [facility] Acetaminophen 300 MG / Codeine Phosphate 30 MG Oral Tablet [Tylenol with Codeine #3] 1 tab, Route: PO, Drug Form: TAB, Dosing Weight 97.727, kg, ONCE, STAT, Start date: 05/13/18 7:42:00 WATCH 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, Stop date: 05/13/18 7:42:00 WATCH 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 Inactive 05/13/2018 [facility] Rifampin 300 mg, Route: PO, BID, Dosing Weight 100, kg, Start date: 10/29/17 9:00:00 CDT, Duration: 30 day, Stop date: 11/27/17 17:00:00 CDT Inactive 10/29/2017 [facility] vancomycin + Dextrose 5% in Water IV 250 mL 1,000 mg, Route: IVPB, ABXQ8H, Start date: 10/29/17 3:00:00 CDT, Duration: 5 day, Stop date: 11/02/17 19:00:00 CDT, ABX Indication: Skin/Soft Tissue InfectionNotes: TIME CRITICAL MEDICATION (Same As: Vancocin) Infusion rate 2001 mg: infuse over 2.5 hours For adult patients only: Round to nearest 250 mg per Medical Staff approval MEDICATION WASTE Product Size: 1000 mg Product Wasted: ___ mg Inactive 10/29/2017 [facility] ATTN RN please do not admin vanc dose until trough drawn* ATTN RN please do not admin vanc dose until trough drawn*, ATTN RN, Drug form: MISC, Route: MISC, ONCE, 10/28/17 15:30:00 CDT, Stop date: 10/28/17 15:30:00 CDT Inactive 10/28/2017 [facility] NS 1,000 mL 1,000 mL, Rate: 100 ml/hr, Infuse over: 10 hr, Route: IV, Dosing Weight 100 kg, Total Volume: 1,000, Start date: 10/27/17 11:00:00 CDT, Duration: 30 day, Stop date: 11/26/17 10:59:00 CDT, 2.2, m2 No Longer Active 10/27/2017 [facility] Insulin Lispro 2 unit, 0.02 mL, Route: SUB-Q, Drug form: SOLN, Bedtime, Dosing Weight 100, kg, PRN Blood Glucose Results, Start date: 10/27/17 11:00:00 CDT, Duration: 30 day, Stop date: 11/26/17 10:59:00 CDTNotes: (Same as: Humalog ) Roll in palms of hands gently; Do not shake `vigorously. "Single Patient Use Only " WASTE: F/P - Black; E - Municipal Trash Bin Stable for 28 days at room temperature. Expires in days from Date No Longer Active 10/27/2017 [facility] Glucagon 1 mg, Route: IM, Drug form: PDR/INJ, PRN, Dosing Weight 100, kg, PRN Blood Glucose Results, Start date: 10/27/17 11:00:00 CDT, Duration: 30 day, Stop date: 11/26/17 10:59:00 CDT No Longer Active 10/27/2017 [facility] Dextrose 50% Syringe 25 gm, 50 mL, Route: IVP, Drug Form: INJ, Dosing Weight 100, kg, PRN, PRN Blood Glucose Results, Start date: 10/27/17 11:00:00 CDT, Duration: 30 day, Stop date: 11/26/17 10:59:00 CDT No Longer Active 10/27/2017 [facility] Docusate 100 mg, 1 cap, Route: PO, Drug form: CAP, BID, Dosing Weight 100, kg, Start date: 10/27/17 9:00:00 CDT, Duration: 30 day, Stop date: 11/25/17 17:00:00 CDTNotes: (Same as: Colace) (Do Not Crush) No Longer Active 10/27/2017 [facility] cefepime 1 gm, Route: IVPB, [id number], Dosing Weight 100, kg, (CrCl >/=50 ml/min), Start date: 10/27/17 5:00:00 CDT, Duration: 7 day, Stop date: 11/02/17 21:00:00 CDT, ABX Indication: Skin/Soft Tissue InfectionNotes: (Same As: Maxipime) MEDICATION WASTE Product Size: 1000 mg Product Wasted: ___ mg No Longer Active 10/27/2017 [facility] Vancomycin 1 gm, Route: IVPB, [id number], Dosing Weight 100, kg, Start date: 10/27/17 4:00:00 CDT, Duration: 7 day, Stop date: 11/02/17 7:00:00 CDT, ABX Indication: Skin/Soft Tissue InfectionNotes: TIME CRITICAL MEDI CATION (Same As: Vancocin) Infusion rate 2001 mg: infuse over 2.5 hours For adult patients only: Round to nearest 250 mg per Medical Staff approval MEDICATION WASTE Product Size: 1000 mg Product Wasted: ___ mg No Longer Active 10/27/2017 [facility] Ondansetron 4 mg, 2 mL, Route: IVP, Drug form: INJ, Q6H, Dosing Weight 100, kg, PRN Nausea & Vomiting, Start date: 10/27/17 3:59:00 CDT, Duration: 30 day, Stop date: 11/26/17 3:58:00 CDTNotes: (Same as: Zofran) MEDICATION WASTE Product Size: 4 mg Product Wasted: ___ mg No Longer Active 10/27/2017 [facility] Acetaminophen 325 MG / Hydrocodone Bitartrate 5 MG Oral Tablet 1 tab, Route: PO, Drug Form: TAB, Dosing Weight 100, kg, Q4H, PRN Pain Score 4-6, Start date: 10/27/17 3:59:00 CDT, Duration: 30 day, Stop date: 11/26/17 3:58:00 CDTNotes: (Same as: [place] 325/5) Do not exceed 4gm/day of acetaminophen. No Longer Active 10/27/2017 [facility] Acetaminophen 650 mg, 2 tab, Route: PO, Drug form: TAB, Q4H, Dosing Weight 100, kg, PRN Pain 1-3/Temp > 100.4 F, Start date: 10/27/17 3:59:00 CDT, Duration: 30 day, Stop date: 11/26/17 3:58:00 CDTNotes: Do not exc eed 4 gm/day. (Same as: Tylenol) No Longer Active 10/27/2017 [facility] Morphine 4 mg, 1 mL, Route: IVP, Drug form: SOLN, Q4H, Dosing Weight 100, kg, PRN Pain Score 7-10, Start date: 10/27/17 3:59:00 CDT, Duration: 30 day, Stop date: 11/26/17 3:58:00 CDTNotes: (Same as:MORPhine S ulfate) No Longer Active 10/27/2017 [facility] Sodium Chloride 0.9% (titrate) 250 mL 250 mL, Rate: To prime line and flush remaining blood products., Dosing Weight 95.455, kg, Route: IV, Total Volume: 250, Priority: Routine, Start Date: 10/26/17 23:52:00 CDT, Duration: 1 day, Stop date: 10/27/17 23:51:00 CDT, Replace Every: 24 hr No Longer Active 10/27/2017 [facility] ATTN: RN please update [facility] on adhoc ATTN: RN please update [facility] on adhoc, REMINDER, Drug form: MISC, Route: MISC, Q15Min, 10/26/17 22:30:00 CDT, Duration: 30 day, Stop date: 11/25/17 22:15:00 CDT Inactive 10/27/2017 [facility] Morphine 4 mg, 1 mL, Route: IVP, Drug form: SOLN, Q4H, Dosing Weight 95.455, kg, PRN Pain Score 7-10, Start date: 10/26/17 21:52:00 CDT, Duration: 30 day, Stop date: 11/25/17 21:51:00 CDTNotes: (Same as:MORPhine Sulfate) No Longer Active 10/27/2017 [facility] ATTN: RN please update [facility] on adhoc ATTN: RN please update [facility] on adhoc, Reminder, Drug form: MISC, Route: MISC, Q15Min, 10/26/17 19:15:00 CDT, Duration: 30 day, Stop date: 11/25/17 19:00:00 CDT Inactive 10/27/2017 [facility] 30 ML Morphine Sulfate 5 MG/ML Injection 4 mg, Route: IVP, ONCE, Dosing Weight 93.182, kg, Priority: STAT, Start date: 10/26/17 17:54:00 CDT, Stop date: 10/26/17 17:54:00 CDT Inactive 10/26/2017 [facility] Calcium Gluconate 2,000 mg, 20 mL, Route: IVPB, ONCE, Dosing Weight 93.182, kg, Start date: 10/26/17 16:27:00 CDT, Stop date: 10/26/17 16:27:00 CDTNotes: WASTE: F/P - Sink; E - Municipal Trash Bin Inactive 10/26/2017 [facility] Zofran 4 mg, Route: IVP, Drug form: INJ, ONCE, Dosing Weight 93.182, kg, Priority: STAT, Start date: 10/26/17 15:36:00 CDT, Stop date: 10/26/17 15:36:00 CDT Inactive 10/26/2017 [facility] Morphine 4 mg, Route: IVP, Drug form: INJ, ONCE, Dosing Weight 93.182, kg, Priority: STAT, Start date: 10/26/17 15:35:00 CDT, Stop date: 10/26/17 15:35:00 CDT Inactive 10/26/2017 [facility] Vancomycin 2 gm, Route: IVPB, ONCE, Dosing Weight 93.182, kg, Time Critical Medication, Priority: STAT, Start date: 10/26/17 13:43:00 CDT, Stop date: 10/26/17 13:43:00 CDT, ABX Indication: Skin/Soft Tissue Infe ction Inactive 10/26/2017 [facility] Saline Flush 0.9% 10 mL, Route: IVP, Drug Form: INJ, Dosing Weight 93.182, kg, PRN, PRN Line Flush, Start date: 10/26/17 13:43:00 CDT, Duration: 30 day, Stop date: 11/25/17 13:42:00 CDTNotes: (Same as: BD Posiflush) No Longer Active 10/26/2017 [facility] Sodium Chloride 0.9% (Bolus) IV 2,795.46 mL, 2,000 ml/hr, Route: IV, ONCE, Priority: STAT, Dosing Weight 93.182 kg, Start date: 10/26/17 13:43:00 CDT, Stop date: 10/26/17 13:43:00 CDT Inactive 10/26/2017 [facility] Zosyn 3.375 gm, Route: IVPB, ONCE, Dosing Weight 93.182, kg, Priority: STAT, Start date: 10/26/17 13:42:00 CDT, Stop date: 10/26/17 13:42:00 CDT, ABX Indication: Skin/Soft Tissue Infection Inactive 10/26/2017 [facility] metFORMIN 500 mg oral tablet, extended release 500 mg=1 tab, PO, Dinner, # 90 tab, 0 Refill(s), Pharmacy: [facility]/pharmacy #[id number] Active 08/16/[facility] MethylPREDNISolone Dose Pack 4 mg oral tablet See Instructions, PO, Daily, Use as directed on label., # 1 Pack, 2 Refill(s) Active 08/15/2017 [facility] Diclofenac Sodium 10 MG/ML Topical Cream See Instructions, Apply to to areas 4 times daily., 2 Refill(s) Active 08/15/2017 [facility] SUMAtriptan 100 mg oral tablet 100 mg=1 tab, PO, BID, 2 Refill(s) Active 08/15/2017 [facility] amitriptyline 25 mg oral tablet 25 mg=1 tab, PO, Bedtime, # 30 tab, 2 Refill(s) Active 08/15/2017 [facility] tamsulosin 0.4 mg oral capsule 0.4 mg=1 cap, PO, Daily, # 30 cap, 11 Refill(s) Active 08/15/2017 [facility] baclofen 10 mg oral tablet 5 mg=0.5 tab, PO, TID, 2 Refill(s) Active 08/15/2017 [facility] Dexamethasone 1 MG/ML / Neomycin 3.5 MG/ML / Polymyxin B 89995 UNT/ML Ophthalmic Suspension [Maxitrol] 1 drp, OPTH, QID, # 5 ml, 2 Refill(s) Active 08/15/2017 [facility] Promethazine Hydrochloride 25 MG Oral Tablet See Instructions, 12.5 mg take 0.5 tablets, po, q6h, prn for vomiting and nausea, 0 Refill(s) Active 08/15/2017 [facility] Regular Insulin, Human 100 UNT/ML Injectable Solution [Humulin R] 5 unit, SUB-Q, QAM & PM, 0 Refill(s) Active 08/15/2017 [facility] methocarbamol 500 mg oral tablet 500 mg=1 tab, PO, QID, 0 Refill(s) Active 08/15/2017 [facility] albuterol 90 mcg/inh inhalation aerosol 2 puff, INHALATION, Q4H, PRN for wheezing, # 9 gm, 10 Refill(s) Active 08/15/2017 [facility] diazepam 5 mg oral tablet 5 mg=1 tab, PO, BID, 3 Refill(s) Active 08/15/2017 [facility] loteprednol etabonate 5 MG/ML Ophthalmic Suspension [Lotemax] 1 drp, BOTH EYES, QID, # 5 mL, 2 Refill(s) Active 08/15/2017 [facility] Aspirin 81 MG Enteric Coated Tablet 81 mg=1 tab, PO, Daily, # 90 tab, 11 Refill(s) Active 08/15/2017 [facility] pantoprazole 40 mg oral enteric coated tablet 40 mg=1 tab, PO, Daily, # 30 tab, 2 Refill(s) Active 08/15/2017 [facility] sildenafil 100 MG Oral Tablet [Viagra] 100 mg=1 tab, PO, PRN, 11 Refill(s) Active 08/15/2017 [facility] gabapentin 600 MG Oral Tablet 600 mg=1 tab, PO, TID, # 90 tab, 1 Refill(s) Active 08/15/2017 [facility] venlafaxine 150 mg oral capsule, extended release 150 mg=1 cap, PO, Breakfast, # 30 cap, 1 Refill(s) Active 08/15/2017 [facility] cyclobenzaprine 5 mg oral tablet 5 mg=1 tab, PO, TID, # 42 tab, 0 Refill(s) Active 08/15/2017 [facility] lisinopril 10 mg oral tablet 10 mg=1 tab, PO, Daily, # 30 tab, 0 Refill(s) Active 08/03/2017 [facility] gabapentin 400 MG Oral Capsule 400 mg=1 cap, PO, QID, # 120 cap, 0 Refill(s) Active 08/03/2017 [facility] gabapentin 400 MG Oral Capsule 400 mg=1 cap, PO, TID, # 120 cap, 0 Refill(s), Pharmacy: [facility]/pharmacy #[id number] Active 07/05/2017 [facility] Acetaminophen 300 MG / Codeine Phosphate 30 MG Oral Tablet [Tylenol with Codeine #3] 1 - 2 tab, PO, Q4H, PRN Pain, X 3 day, # 20 tab, 0 Refill(s) Active 07/05/2017 [facility] Morphine 2 mg, Route: IM, ONCE, Dosing Weight 95.045, kg, Priority: STAT, Start date: 07/05/17 14:24:00 CDT, Stop date: 07/05/17 14:24:00 CDT Inactive 07/05/2017 [facility] ketOROLAC 15 mg/mL injectable solution 15 mg, Route: IM, ONCE, Dosing Weight 95.045, kg, Start date: 07/05/17 14:24:00 CDT, Stop date: 07/05/17 14:24:00 CDT Inactive 07/05/2017 [facility] Acetaminophen 325 MG / Hydrocodone Bitartrate 5 MG Oral Tablet [[place] 5/325] 2 tab, Route: PO, Drug Form: TAB, Dosing Weight 96.364, kg, ONCE, STAT, Start date: 07/04/17 19:35:00 CDT, Stop date: 07/04/17 19:35:00 CDTNotes: (Same as: [place] 325/5) Do not exceed 4gm/day of acetaminophen. Inactive 07/05/2017 [facility] tramadol hydrochloride 50 MG Oral Tablet 50 mg=1 tab, PO, BID, X 15 day, # 30 tab, 0 Refill(s) No Longer Active 06/23/2017 [facility] Methocarbamol 500 MG Oral Tablet [Robaxin] 1,000 mg=2 tab, PO, TID, X 7 day, # 20 tab, 0 Refill(s) No Longer Active 06/23/2017 [facility] Ketorolac 60 mg, 2 mL, Route: IM, Drug form: INJ, ONCE, Dosing Weight 83.864, kg, Priority: STAT, Start date: 06/22/17 18:46:00 CDT, Stop date: 06/22/17 18:46:00 CDTNotes: (Same as:Toradol) IV bolus must be given >15 seconds. Give IM administration slowly and deeply into the muscle. Not for use > 4 days MEDICATION WASTE Product Size: 60 mg Product Wasted: ___ mg Inactive 06/22/2017 [facility] Orphenadrine 60 mg, 2 mL, Route: IM, Drug form: INJ, ONCE, Dosing Weight 83.864, kg, Priority: STAT, Start date: 06/22/17 18:43:00 CDT, Stop date: 06/22/17 18:43:00 CDT Inactive 06/22/2017 [facility] {21 (Methylprednisolone 4 MG Oral Tablet [Medrol]) } Pack [Medrol Dosepak] See Instructions, PO, Take by mouth as directed on label., # 1 Pack, 0 Refill(s) No Longer Active 06/12/2017 [facility] Acetaminophen 300 MG / Codeine Phosphate 30 MG Oral Tablet [Tylenol with Codeine #3] 1 - 2 tab, PO, Q6H, PRN Pain, X 4 day, # 32 tab, 0 Refill(s) No Longer Active 06/12/2017 [facility] Cyclobenzaprine hydrochloride 10 MG Oral Tablet [Flexeril] 10 mg=1 tab, PO, TID, PRN for spasm, # 30 tab, 0 Refill(s) Inactive 06/12/2017 [facility] Solu-Medrol 125 mg, 2 mL, Route: IM, Drug form: INJ, ONCE, Dosing Weight 92.773, kg, Priority: STAT, Start date: 06/11/17 20:30:00 CDT, Stop date: 06/11/17 20:30:00 CDTNotes: (Same as:Solu-MEDROL, A-Methapred) Inactive 06/12/2017 [facility] Ketorolac 60 mg, 2 mL, Route: IM, Drug form: INJ, ONCE, Dosing Weight 92.773, kg, Priority: STAT, Start date: 06/11/17 16:32:00 CDT, Stop date: 06/11/17 16:32:00 CDTNotes: (Same as:Toradol) IV bolus must be given >15 seconds. Give IM administration slowly and deeply into the muscle. Not for use > 4 days MEDICATION WASTE Product Size: 60 mg Product Wasted: ___ mg Inactive 06/11/2017 [facility] {21 (Methylprednisolone 4 MG Oral Tablet [Medrol]) } Pack [Medrol Dosepak] See Instructions, PO, Take by mouth as directed on label., # 1 Pack, 0 Refill(s) No Longer Active 05/08/2017 [facility] ibuprofen 600 mg oral tablet 600 mg=1 tab, PO, Q6H, PRN Pain or Fever, Take with food, X 10 day, # 40 tab, 0 Refill(s) Active 03/26/2017 [facility] Acetaminophen 300 MG / Codeine Phosphate 30 MG Oral Tablet [Tylenol with Codeine #3] 1 tab, PO, Q6H, PRN Pain, X 3 day, # 12 tab, 0 Refill(s) Active 03/26/2017 [facility] Tramadol 50 mg, Route: PO, Drug form: TAB, ONCE, Dosing Weight 95.909, kg, > 50 kg, Priority: STAT, Start date: 03/26/17 11:25:00 WATCH 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, Stop date: 03/26/17 11:25:00 WATCH 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 Inactive 03/26/2017 [facility] Acetaminophen 300 MG / Codeine Phosphate 30 MG Oral Tablet [Tylenol with Codeine #3] 1 tab, PO, Q6H, PRN Pain, X 2 day, # 7 tab, 0 Refill(s) No Longer Active 02/18/2017 [facility] Zofran 4 mg, 2 mL, Route: IVP, Drug form: INJ, ONCE, Dosing Weight 95.455, kg, Priority: STAT, Start date: 02/18/17 15:06:00 WATCH 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, Stop date: 02/18/17 15:06:00 CSTNotes: (Same as: Zofran) MEDICATION WASTE Product Size: 4 mg Product Wasted: ___ mg Inactive 02/18/2017 [facility] Morphine 4 mg, 2 mL, Route: IVP, Drug form: SOLN, ONCE, Dosing Weight 95.455, kg, Priority: STAT, Start date: 02/18/17 15:06:00 WATCH 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, Stop date: 02/18/17 15:06:00 WATCH 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 Inactive 02/18/2017 [facility] NS (Bolus) IV 1,000 mL, 1,000 ml/hr, Infuse Over: 1 hr, Route: IV, 1,000, Drug form: INJ, ONCE, Priority: STAT, Dosing Weight 95.455 kg, Start date: 02/18/17 15:06:00 WATCH 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, Stop date: 02/18/17 15:06:00 WATCH 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 Inactive 02/18/2017 [facility] Acetaminophen 300 MG / Codeine Phosphate 30 MG Oral Tablet [Tylenol with Codeine #3] 1 - 2 tab, PO, Q4H, PRN Pain, not to exceed 4000 mg acetaminophen per day, X 2 day, # 20 tab, 0 Refill(s) No Longer Active 01/09/2017 [facility] Acetaminophen 325 MG / Hydrocodone Bitartrate 7.5 MG Oral Tablet [[place] 7.5/325] 1 tab, Route: PO, Drug Form: TAB, Dosing Weight 95.455, kg, ONCE, STAT, Start date: 01/09/17 3:39:00 CDT, Stop date: 01/09/17 3:39:00 CDT Inactive 01/09/2017 [facility] Dexamethasone 6 mg, Route: IM, ONCE, Dosing Weight 95.455, kg, Start date: 01/09/17 1:23:00 CDT, Stop date: 01/09/17 1:23:00 CDT Inactive 01/09/2017 [facility] Ketorolac 60 mg, Route: IM, Drug form: INJ, ONCE, Dosing Weight 95.455, kg, Priority: STAT, Start date: 01/09/17 1:22:00 CDT, Stop date: 01/09/17 1:22:00 CDT Inactive 01/09/2017 [facility] Valium 10 mg, Route: PO, ONCE, Dosing Weight 95.455, kg, Priority: STAT, Start date: 01/09/17 1:21:00 CDT, Stop date: 01/09/17 1:21:00 CDT Inactive 01/09/2017 [facility] Acetaminophen 325 MG / Hydrocodone Bitartrate 5 MG Oral Tablet [[place] 5/325] 1 tab, Route: PO, Drug Form: TAB, Dosing Weight 94.091, kg, TID, Start date: 12/28/16 21:01:00 CDT, Duration: 30 day, Stop date: 01/27/17 17:00:00 CDTNotes: (Same as: [place] 325/5) Do not exceed 4gm/day of acetaminophen. Inactive 12/29/2016 [facility] Acetaminophen 325 MG / Hydrocodone Bitartrate 5 MG Oral Tablet [[place] 5/325] 1 tab, Route: PO, Drug Form: TAB, Dosing Weight 94.091, kg, Q6H, Start date: 12/28/16 18:48:00 CDT, Duration: 30 day, Stop date: 01/27/17 18:00:00 CDTNotes: (Same as: [place] 325/5) Do not exceed 4gm/day of acetaminophen. No Longer Active 12/28/2016 [facility] {21 (Methylprednisolone 4 MG Oral Tablet [Medrol]) } Pack [Medrol Dosepak] See Instructions, PO, Take by mouth as directed on label., # 1 Pack, 0 Refill(s) Active 12/28/2016 [facility] Acetaminophen 300 MG / Codeine Phosphate 30 MG Oral Tablet [Tylenol with Codeine #3] 1 - 2 tab, PO, Q4H, PRN Pain, X 4 day, # 36 tab, 0 Refill(s) Active 12/28/2016 [facility] Dexamethasone 8 mg, 2 mL, Route: IVP, Drug form: INJ, ONCE, Dosing Weight 94.091, kg, Priority: NOW, Start date: 12/28/16 14:48:00 CDT, Stop date: 12/28/16 14:48:00 CDTNotes: Concentration: 4mg/ml Inactive 12/28/2016 [facility] Docusate 100 mg, 1 cap, Route: PO, Drug form: CAP, BID, Dosing Weight 94.091, kg, Start date: 12/28/16 9:00:00 CDT, Duration: 30 day, Stop date: 01/26/17 17:00:00 CDTNotes: (Same as: Colace) (Do Not Crush) Inactive 12/28/2016 [facility] gabapentin 300 MG Oral Capsule 300 mg, 1 cap, Route: PO, Drug form: CAP, TID, Dosing Weight 94.091, kg, Start date: 12/28/16 9:00:00 CDT, Duration: 30 day, Stop date: 01/26/17 17:00:00 CDTNotes: (Same as: Neurontin) Inactive 12/28/2016 [facility] Ketorolac 30 mg, 1 mL, Route: IVP, Drug form: INJ, ONCE, Dosing Weight 94.091, kg, Start date: 12/27/16 18:23:00 CDT, Duration: 1 doses or times, Stop date: 12/27/16 18:23:00 CDTNotes: (Same as:Toradol) IV bolus must be given >15 seconds. Give IM administration slowly and deeply into the muscle. Not for use > 4 days MEDICATION WASTE Product Size: 30 mg Product Wasted: ___ mg Inactive 12/27/2016 [facility] Acetaminophen 650 mg, 2 tab, Route: PO, Drug form: TAB, Q4H, Dosing Weight 94.091, kg, PRN Pain 1-3/Temp > 100.4 F, Start date: 12/27/16 18:20:00 CDT, Duration: 30 day, Stop date: 01/26/17 18:19:00 CDTNotes: Do not exceed 4 gm/day. (Same as: Tylenol) No Longer Active 12/27/2016 [facility] Acetaminophen 325 MG / Hydrocodone Bitartrate 5 MG Oral Tablet 1 tab, Route: PO, Drug Form: TAB, Dosing Weight 94.091, kg, Q4H, PRN Pain Score 4-6, Start date: 12/27/16 18:20:00 CDT, Duration: 30 day, Stop date: 01/26/17 18:19:00 CDTNotes: (Same as: [place] 325/5) Do not exceed 4gm/day of acetaminophen. No Longer Active 12/27/2016 [facility] Morphine 2 mg, 1 mL, Route: IVP, Drug form: SOLN, Q4H, Dosing Weight 94.091, kg, PRN Pain Score 7-10, Start date: 12/27/16 18:20:00 CDT, Duration: 30 day, Stop date: 01/26/17 18:19:00 CDT No Longer Active 12/27/2016 [facility] Ondansetron 4 mg, 2 mL, Route: IVP, Drug form: INJ, Q6H, Dosing Weight 94.091, kg, PRN Nausea & Vomiting, Start date: 12/27/16 18:20:00 CDT, Duration: 30 day, Stop date: 01/26/17 18:19:00 CDTNotes: (Same as: Claudia) MEDICATION WASTE Product Size: 4 mg Product Wasted: ___ mg No Longer Active 12/27/2016 [facility] Acetaminophen 300 MG / Codeine Phosphate 30 MG Oral Tablet [Tylenol with Codeine #3] 1 tab, PO, Q6H, 0 Refill(s) No Longer Active 12/27/2016 [facility] gabapentin PO, 0 Refill(s) No Longer Active 12/27/2016 [facility] Morphine 4 mg, Route: IVP, ONCE, Dosing Weight 94.091, kg, Priority: STAT, Start date: 12/27/16 14:33:00 CDT, Stop date: 12/27/16 14:33:00 CDT Inactive 12/27/2016 [facility] Ketorolac 30 mg, Route: IVP, Drug form: INJ, ONCE, Dosing Weight 94.091, kg, Priority: STAT, Start date: 12/27/16 12:28:00 CDT, Stop date: 12/27/16 12:28:00 CDT Inactive 12/27/2016 [facility] Morphine 4 mg, 1 mL, Route: IVP, Drug form: SOLN, ONCE, Dosing Weight 94.091, kg, Priority: STAT, Start date: 12/27/16 11:21:00 CDT, Stop date: 12/27/16 11:21:00 CDTNotes: (Same as:MORPhine Sulfate) Inactive 12/27/2016 [facility] Dexamethasone 8 mg, 0.8 mL, Route: IVP, Drug form: INJ, ONCE, Dosing Weight 94.091, kg, Priority: STAT, Start date: 12/27/16 11:21:00 CDT, Stop date: 12/27/16 11:21:00 CDTNotes: MEDICATION WASTE Product Si ze: 10 mg Product Wasted: ___ mg Inactive 12/27/2016 [facility] {21 (Methylprednisolone 4 MG Oral Tablet [Medrol]) } Pack [Medrol Dosepak] See Instructions, PO, Take by mouth as directed on label., # 1 Pack, 0 Refill(s) Active 11/30/2016 [facility] Diazepam 10 MG Oral Tablet [Valium] 10 mg=1 tab, PO, TID, PRN Muscle Spasms, X 4 day, # 12 tab, 0 Refill(s) Active 11/30/2016 [facility] Acetaminophen 300 MG / Codeine Phosphate 60 MG Oral Tablet [Tylenol with Codeine #4] 1 tab, PO, Q6H, PRN pain, X 5 day, # 20 tab, 0 Refill(s) Active 11/30/2016 [facility] Ketorolac Tromethamine 10 MG Oral Tablet 10 mg=1 tab, PO, Q6H, PRN as needed for pain, X 5 day, # 20 tab, 0 Refill(s) Active 11/30/2016 [facility] Valium 10 mg, Route: IM, ONCE, Dosing Weight 95.909, kg, Priority: STAT, Start date: 11/29/16 19:26:00 CDT, Stop date: 11/29/16 19:26:00 CDT Inactive 11/30/2016 [facility] Dexamethasone 10 mg, Route: IM, ONCE, Dosing Weight 95.909, kg, Priority: STAT, Start date: 11/29/16 19:26:00 CDT, Stop date: 11/29/16 19:26:00 CDT Inactive 11/30/2016 [facility] Ketorolac 60 mg, Route: IM, Drug form: INJ, ONCE, Dosing Weight 95.909, kg, Priority: STAT, Start date: 11/29/16 19:26:00 CDT, Stop date: 11/29/16 19:26:00 CDT Inactive 11/30/2016 [facility] Acetaminophen 325 MG / Hydrocodone Bitartrate 10 MG Oral Tablet 1 tab, Route: PO, Dosing Weight 95.909, kg, ONCE, STAT, Start date: 11/29/16 19:26:00 CDT, Stop date: 11/29/16 19:26:00 CDT Inactive 11/30/2016 [facility] Cyclobenzaprine hydrochloride 10 MG Oral Tablet [Flexeril] 10 mg, PO, TID, PRN Muscle Spasm, X 10 day, # 30 tab, 0 Refill(s) Active 11/14/2016 [facility] Acetaminophen 300 MG / Codeine Phosphate 30 MG Oral Tablet [Tylenol with Codeine #3] 1 - 2 tab, PO, Q4H, PRN Pain, X 2 day, # 20 tab, 0 Refill(s) No Longer Active 11/14/2016 [facility] Acetaminophen 325 MG / Hydrocodone Bitartrate 7.5 MG Oral Tablet [[place] 7.5/325] 1 tab, Route: PO, Drug Form: TAB, Dosing Weight 90.909, kg, ONCE, STAT, Start date: 11/13/16 20:54:00 CDT, Stop date: 11/13/16 20:54:00 CDTNotes: Same as [place] 325-7.5mg Do not exceed 4gm/day of acetaminophen. Inactive 11/14/2016 [facility] Zofran ODT 4 mg, 1 tab, Route: PO, Drug form: TABDIS, ONCE, Dosing Weight 90.909, kg, Priority: STAT, Start date: 11/13/16 19:40:00 CDT, Stop date: 11/13/16 19:40:00 CDTNotes: (Same as: Zofran ODT) Inactive 11/14/2016 [facility] Morphine 4 mg, 1 mL, Route: IM, Drug form: SOLN, ONCE, Dosing Weight 90.909, kg, Priority: STAT, Start date: 11/13/16 19:39:00 CDT, Stop date: 11/13/16 19:39:00 CDTNotes: (Same as:MORPhine Sulfate) Inactive 11/14/2016 [facility] Valium 10 mg, 2 tab, Route: PO, Drug form: TAB, ONCE, Dosing Weight 90.909, kg, Priority: STAT, Start date: 11/13/16 19:39:00 CDT, Stop date: 11/13/16 19:39:00 CDTNotes: (Same as: Valium) Inactive 11/14/2016 [facility] Ondansetron 4 MG Oral Tablet [Zofran] 4 mg=1 tab, PO, Q6H, # 20 tab, 0 Refill(s) Active 11/02/2016 [facility] Acetaminophen 300 MG / Codeine Phosphate 30 MG Oral Tablet [Tylenol with Codeine #3] 1 - 2 tab, PO, Q4H, PRN Pain, X 3 day, # 20 tab, 0 Refill(s) Active 11/02/2016 [facility] tramadol hydrochloride 50 MG Oral Tablet 50 mg=1 tab, PO, Q6H, PRN Pain, X 7 day, # 28 tab, 0 Refill(s) Inactive 11/02/2016 [facility] Morphine 4 mg, 1 mL, Route: IVP, Drug form: INJ, ONCE, Dosing Weight 93.182, kg, Priority: STAT, Start date: 11/02/16 16:33:00 CDT, Stop date: 11/02/16 16:33:00 CDTNotes: (Same as:MORPhine Sulfate) Inactive 11/02/2016 [facility] Omnipaque 300 injectable solution 85 mL, Route: IVP, Drug Form: SOLN, Dosing Weight 93.182, kg, ONCALL, GFR > 45 mL/min, STAT, Start date: 11/02/16 15:55:00 CDT, Duration: 1 doses or timesNotes: (Same as:Omnipaque 300). WASTE: F/P - Black; E - [employer] Trash Bin Inactive 11/02/2016 [facility] Zofran 4 mg, 2 mL, Route: IVP, Drug form: INJ, ONCE, Dosing Weight 93.182, kg, Priority: STAT, Start date: 11/02/16 13:52:00 CDT, Stop date: 11/02/16 13:52:00 CDTNotes: (Same as: Zofran) MEDICATION WASTE Product Size: 4 mg Product Wasted: ___ mg Inactive 11/02/2016 [facility] Morphine 4 mg, 1 mL, Route: IVP, Drug form: INJ, ONCE, Dosing Weight 93.182, kg, Priority: STAT, Start date: 11/02/16 13:52:00 CDT, Stop date: 11/02/16 13:52:00 CDTNotes: (Same as:MORPhine Sulfate) Inactive 11/02/2016 [facility] NS (Bolus) IV 1,000 mL, 1,000 ml/hr, Infuse Over: 1 hr, Route: IV, 1,000, Drug form: INJ, ONCE, Priority: STAT, Dosing Weight 93.182 kg, Start date: 11/02/16 13:51:00 CDT, Duration: 1 doses or times, Stop date: 13:51:00 CDT Inactive 11/02/2016 [facility] Acetaminophen 300 MG / Codeine Phosphate 30 MG Oral Tablet [Tylenol with Codeine #3] 1 - 2 tab, PO, Q4H, PRN Pain, X 4 day, # 36 tab, 0 Refill(s) Active 10/25/2016 [facility] Motrin 800 mg oral tablet 800 mg=1 tab, PO, Q8H, PRN Pain, Take with food, X 10 day, # 30 tab, 0 Refill(s) Active 10/25/2016 [facility] Ketorolac 60 mg, 2 mL, Route: IM, Drug form: INJ, ONCE, Dosing Weight 93.182, kg, Priority: STAT, Start date: 10/24/16 18:37:00 CDT, Stop date: 10/24/16 18:37:00 CDTNotes: (Same as:Toradol) IV bolus must be given >15 seconds. Give IM administration slowly and deeply into the muscle. Not for use > 4 days MEDICATION WASTE Product Size: 60 mg Product Wasted: ___ mg Inactive 10/24/2016 [facility] Hydromorphone 1 mg, 1 mL, Route: IM, Drug form: INJ, ONCE, Dosing Weight 93.182, kg, Priority: STAT, Start date: 10/24/16 18:36:00 CDT, Stop date: 10/24/16 18:36:00 CDT Inactive 10/24/2016 [facility] Dexamethasone 10 mg, 2.5 mL, Route: IM, Drug form: INJ, ONCE, Dosing Weight 93.182, kg, Priority: STAT, Start date: 10/24/16 18:36:00 CDT, Stop date: 10/24/16 18:36:00 CDT Inactive 10/24/2016 [facility] Acetaminophen 300 MG / Codeine Phosphate 30 MG Oral Tablet [Tylenol with Codeine #3] 1 tab, PO, Q6H, PRN as need for pain, X 4 day, # 16 tab, 0 Refill(s) Active 07/28/2016 [facility] ibuprofen 600 mg oral tablet 600 mg=1 tab, PO, Q6H, PRN Pain or Fever, Take with food, X 10 day, # 40 tab, 0 Refill(s) Active 07/28/2016 [facility] Cyclobenzaprine hydrochloride 10 MG Oral Tablet [Flexeril] 10 mg, PO, TID, PRN Muscle Spasm, X 10 day, # 30 tab, 0 Refill(s) Active 07/28/2016 [facility] tramadol hydrochloride 50 MG Oral Tablet [Ultram] 50 mg=1 tab, PO, Q6H, PRN pain, X 5 day, # 20 tab, 0 Refill(s) Inactive 07/28/2016 [facility] {21 (Methylprednisolone 4 MG Oral Tablet [Medrol]) } Pack [Medrol Dosepak] See Instructions, PO, Take by mouth as directed on label., # 1 Pack, 0 Refill(s) Active 07/28/2016 [facility] methylPREDNISolone SODium SUCCinate 125 mg, Route: IVP, ONCE, Dosing Weight 86.364, kg, Priority: STAT, Start date: 07/28/16 1:53:00 CDT, Stop date: 07/28/16 1:53:00 CDT Inactive 07/28/2016 [facility] Zofran 4 mg, Route: IVP, Drug form: INJ, ONCE, Dosing Weight 86.364, kg, Priority: STAT, Start date: 07/28/16 1:51:00 CDT, Stop date: 07/28/16 1:51:00 CDT Inactive 07/28/2016 [facility] Morphine 4 mg, Route: IVP, ONCE, Dosing Weight 86.364, kg, Priority: STAT, Start date: 07/28/16 1:51:00 CDT, Stop date: 07/28/16 1:51:00 CDT Inactive 07/28/2016 [facility] Sodium Chloride 0.154 MEQ/ML Injectable Solution 1,000 mL, 2,000 ml/hr, Infuse Over: 30 minutes, Route: IV, ONCE, Priority: STAT, Dosing Weight 86.364 kg, Start date: 07/27/16 23:26:00 CDT, Duration: 1 doses or times, Stop date: 07/27/16 23:26:00 CDT Inactive 07/28/2016 [facility] Saline Flush 0.9% 10 mL, Route: IVP, Drug Form: INJ, Dosing Weight 86.364, kg, PRN, PRN Line Flush, Start date: 07/27/16 23:26:00 CDT, Duration: 30 day, Stop date: 08/26/16 23:25:00 CDTNotes: (Same as: BD Posiflush) No Longer Active 07/28/2016 [facility] Ondansetron 4 mg, Route: IVP, ONCE, Dosing Weight 86.364, kg, Priority: STAT, Start date: 07/27/16 23:26:00 CDT, Stop date: 07/27/16 23:26:00 CDT Inactive 07/28/2016 [facility] Morphine 4 mg, Route: IVP, ONCE, Dosing Weight 86.364, kg, Priority: STAT, Start date: 07/27/16 23:26:00 CDT, Stop date: 07/27/16 23:26:00 CDT Inactive 07/28/2016 [facility] cyclobenzaprine 10 mg oral tablet 10 mg=1 tab, PO, TID, PRN for spasms, X 10 day, # 30 tab, 0 Refill(s) Active 04/28/2016 [facility] Acetaminophen 300 MG / Codeine Phosphate 30 MG Oral Tablet [Tylenol with Codeine #3] 1 - 2 tab, PO, Q6H, PRN Pain, X 4 day, # 15 tab, 0 Refill(s) Active 04/28/2016 [facility] Dexamethasone 8 mg, Route: IM, ONCE, Dosing Weight 93.182, kg, Priority: STAT, Start date: 04/28/16 13:56:00 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, Stop date: 04/28/16 13:56:00 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 Inactive 04/28/2016 [facility] cyclobenzaprine 10 mg, Route: PO, ONCE, Dosing Weight 93.182, kg, Priority: STAT, Start date: 04/28/16 13:56:00 WATCH 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, Stop date: 04/28/16 13:56:00 WATCH 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 Inactive 04/28/2016 [facility] Ketorolac 60 mg, Route: IM, Drug form: INJ, ONCE, Dosing Weight 93.182, kg, Priority: STAT, Start date: 04/28/16 13:56:00 WATCH 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, Stop date: 04/28/16 13:56:00 WATCH 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 Inactive 04/28/2016 [facility] Allergies, Adverse Reactions, Alerts Substance Category Reaction Severity Reaction type Status Date Reported Comments Source penicillin Assertion Drug allergy Active [facility] Immunizations Immunization Date Given Site Status Last Updated Comments Source influenza virus vaccine, inactivated 12/24/2016 completed [facility] influenza virus vaccine, inactivated 12/24/2016 completed [facility] pneumococcal 13-valent vaccine 03/26/2016 completed [facility] diphtheria/pertussis, acel/tetanus adult 03/26/2016 completed [facility] diphtheria-tetanus toxoids 03/26/2016 completed [facility] pneumococcal 13-valent vaccine 03/26/2016 completed [facility] diphtheria/pertussis, acel/tetanus adult 03/26/2016 completed [facility] diphtheria-tetanus toxoids 03/26/2016 completed [facility] Results Order Name Results Value Reference Range Date Interpretation Comments Source Spine lumbar wo contrast MRI Spine lumbar wo contrast MRI EXAM: MR LUMBAR SPINE WITHOUT CONTRAST DATE: 03/22/2018 22:15 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 COMPARISON: 01/02/2018. TECHNIQUE: Multiplanar, multisequence noncontrast MRI of the lumbar spine was performed. FINDINGS: The normal lumbar lordosis is preserved. No abnormalities in sagittal alignment are identified. The vertebral body and disc spaces heights are maintained. The marrow signal is within normal limits. The distal spinal cord and cauda equina nerve roots demonstrate normal signal characteristics and caliber. Posterior fixation of the lumbar spine is identified, with paired transpedicular screws at L4 and L5 as well as a left transpedicular screw at S1. This has likely been revised given the presence of iliac crest screws on recent CT of the lumbar spine. Laminectomy changes are noted at L5, with redemonstration of prominent epicardial fat along the anterior aspect of the L5-S1 disc space level. A large heterogeneous fluid collection within the posterior subcutaneous tissues measures approximately 2.2 x 5.4 x 10.0 cm, slightly decreased in size from prior exam in December 2017. The fluid collection slightly extends into the postoperative laminectomy bed on series 5 image 8. Multilevel degenerative changes of lumbar spine are identified, as follows: L1-L2: No significant degenerative change, without spinal canal or neural foraminal stenosis. L2-L3: No significant degenerative change, without spinal canal or neural foraminal stenosis. L3-L4: No significant degenerative change, without spinal canal or neural foraminal stenosis. L4-L5: Posterior annular fissure and left foraminal disc protrusion, with moderate left neural foraminal stenosis. No significant spinal canal or right neural foraminal stenosis. L5-S1: Left foraminal disc protrusion, with moderate to severe left neural foraminal stenosis. No significant spinal canal or right neural foraminal stenosis. IMPRESSION: 1. Interval decrease in a heterogeneous fluid collection within the posterior soft tissues of the lumbar spine, now measuring 2.2 x 5.4 x 7.0 cm. Evaluation is somewhat limited without intravenous contrast. Primary differential considerations include pseudomeningocele, seroma, and involving hematoma. 2. Left foraminal disc protrusions at L4-L5 and L5-S1, with moderate to severe left neural foraminal stenosis at L5-S1. No significant spinal canal stenosis is identified. 3. Posterior fixation of the lower lumbar spine with laminectomy changes at L5. 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 Lower back pain radiating to left leg. COMPARISON: MR 01/02/2018 TECHNIQUE: Sequential trans-axial images were obtained with a multi-detector helical CT. Coronal and sagittal reconstructions were obtained. CT imaging performed at this location utilizes radiation dose optimization techniques which include one or more of the following: -Automated exposure control -Adjustment of the mA and/or kV according to patient size -Use of iterative reconstruction technique CT Radiation Dose DLP 889.9 mGy-cm FINDINGS: ALIGNMENT AND GENERAL ASSESSMENT: Posterior lumbar fusion is present spanning L4-S1. Right S1 screw has been removed. Remaining screws appear largely unchanged from the prior exam. There is redemonstration of a subcutaneous soft tissue fluid collection measuring at least 4.9 x 2.5 cm. Extensive streak artifact from fusion hardware limits evaluation. No obvious connection to the thecal sac delineated. Limited evaluation the paraspinous soft tissues is unremarkable. The alignment of the lumbar spine is within normal limits. DISC SPACES AND SOFT TISSUES: MRI has higher sensitivity and specificity for disc and soft tissue disease. Streak artifact from posterior fusion hardware limits evaluation for spinal canal stenosis or foraminal narrowing. At least moderate foraminal narrowing present at the L4-L5 and L5-S1 levels. Mild foraminal narrowing suggested L3-L4. Lack of intrathecal contrast limits evaluation for spinal canal stenosis. If there is further concern, CT myelogram or MRI of the lumbar spine may be performed for complete assessment. IMPRESSION: 1. Nonspecific fluid collection within the subcutaneous soft tissues of the lower lumbar spine redemonstrated. Diagnostic considerations include a pseudomeningocele, seroma or postoperative hematoma. 2. Bilateral foraminal narrowing at L4-L5 and L5-S1. 3. Posterior fusion L4-S1. No hardware abnormality evident. SL: [id number] 03/22/2018 - - Read by: Savage Obrien MD Dictated Date/time: 03/22/18 15:37 Electronically Signed by: Savage Obrien MD 03/22/18 15:49 FINAL REPORT [facility] Spine cervical wo contrast CT Spine cervical wo contrast CT Clinical Indication: - S/P FALL WITH neck pain.; Comparison: 01/02/2018 Technique: Multi-detector CT imaging of the cervical spine is performed. Coronal and sagittal reconstructions were obtained. CT Radiation Dose DLP 418.1 mGy-cm CT imaging performed at this location utilizes radiation dose optimization techniques which include one or more of the following: -Automated exposure control -Adjustment of the mA and/or kV according to patient size -Use of iterative reconstruction technique FINDINGS: ALIGNMENT AND GENERAL ASSESSMENT: There is normal alignment of the cervical spine. There is fusion of C5-C6. There are no acute fractures or subluxations. The craniocervical junction is normal. The atlanto-dental alignment appears unremarkable. The posterior elements and spinous processes are unremarkable. The facet joint, spinolaminar and spinous process alignment are normal. DISK SPACES AND SOFT TISSUES: The prevertebral soft tissues are normal. There are multilevel degenerative changes throughout the cervical spine with anterior and posterior osteophytes, disk bulges as well as bilateral uncovertebral and facet hypertrophy. There is no osseous spinal or foraminal stenosis. MRI is the gold standard to assess for disk disease. VISUALIZED LUNG APICES: Unremarkable. CT myelogram or MRI of the cervical spine may be performed, if there is further concern. IMPRESSION: 1. Degenerative changes within the cervical spine without acute fractures or subluxations. SL: [id number] 02/18/2018 - - Read by: Jean Vogt MD Dictated Date/time: 02/18/18 15:09 Electronically Signed by: Jean Vogt MD 02/18/18 15:13 FINAL REPORT [facility] Spine lumbar w/wo contrast MRI Spine lumbar w/wo contrast MRI EXAM: Spine lumbar w/wo contrast MRI DATE: 01/02/2018 22:28 INDICATION: - Back pain, subcutaneous fluid COMPARISON: CT lumbar spine 01/02/2018 at 15: 30/3 and MRI 12/25/2017 TECHNIQUE: Multiplanar multisequence images of the lumbar spine were obtained before and after the intravenous administration of contrast material. DISCUSSION: There has been no interval change in the subcutaneous fluid collection at the laminectomy bed since prior MRI exam, measuring 138 mm CC x 50 mm AP x 112 mm transverse extending from L2 through S2 /S3. The fluid collection is superficial to the muscular fascia. There is peripheral enhancement presumably due to granulation tissue. There is no communication with the thecal sac. Stable postoperative changes of posterior fusion at L4-L5 and S1 via transpedicular screws. No new fluid collections. IMPRESSION: Stable subcutaneous fluid collection in the lower lumbar spine since prior MRI with no obvious communication with the thecal sac. Differential diagnosis includes pseudomeningocele, seroma and evolving hematoma. 01/02/2018 - - Read by: Olga Haynes MD Dictated Date/time: 01/03/18 00:58 Electronically Signed by: Olga Haynes MD 01/03/18 01:19 FINAL REPORT [facility] Spine lumbar w contrast CT Spine lumbar w contrast CT Study: Spine lumbar w contrast CT 01/02/2018 2:44 PM CDT Clinical Indication: - Fluid collection post op, tender Comparison: None Technique: Multiple contiguous postcontrast CT images were obtained through the lumbar spine. Coronal and sagittal reconstructions were prepared. CT imaging performed at this location utilizes radiation dose optimization techniques which include one or more of the following: -Automated exposure control -Adjustment of the mA and/or kV according to patient size -Use of iterative reconstruction technique IV contrast: 100 mL Omnipaque 300 DLP: 792.7 mGy-cm FINDINGS: ALIGNMENT AND GENERAL ASSESSMENT: * Alignment is normal without subluxation. * Mild diffuse lumbar spondylosis and mild/moderate facet arthrosis greatest in the lower lumbar spine. Postoperative change of laminectomy and fusion are seen at L4-S1 accomplished by means of 2 segmental rods with bilateral pedicle screws at each level. No evidence of hardware fracture or lucency about the hardware. Osseous grafting material is seen involving the facet joints at each level. A peripherally enhancing low-attenuation collection measuring 14.3 x 10.0 x 3.2 cm is seen overlying the postoperative site. The collection is mainly located in the subcutaneous fat overlying the musculature, but a small poorly defined area of extension anteriorly is seen at L5-S1 toward the laminectomy defect. Evaluation for extension to the spinal canal is difficult to exclude given artifact, but not demonstrated with certainty. * No acute fracture or dislocation is appreciated. DISK SPACES: T12-L1: No significant disc protrusion, spinal canal narrowing, or neural foraminal narrowing. L1-L2: Minimal diffuse disc bulge causing minimal anterior thecal sac compression without significant spinal canal narrowing. No significant neural foraminal narrowing. L2-L3: Mild diffuse disc bulge coupled with mild facet arthrosis causing mild anterior thecal sac compression without significant central spinal canal narrowing. Mild bilateral neural foraminal narrowing. L3-L4: Mild diffuse disc bulge likely causing mild anterior thecal sac compression given laminectomy, but the spinal canal is difficult to evaluate given the amount of artifact present. Mild bilateral neural foraminal narrowing. L4-L5: Mild diffuse disc bulge likely causing mild anterior thecal sac compression without significant spinal canal narrowing given laminectomy. The spinal canal is difficult to further evaluate given artifact present. Mild to moderate bilateral neural foraminal narrowing. L5-S1: No definite significant disc protrusion or spinal canal narrowing given limitations. Suspect mild to moderate bilateral neural foraminal narrowing given limitations. Grade 1 retrolisthesis of L5 on S1. PARASPINAL SOFT TISSUES: The paraspinal soft tissues are normal. Mild nonspecific induration and thickening is seen in the presacral soft tissues. IMPRESSION: 1. Mild to moderate lumbar spondylosis and facet arthrosis status post laminectomy and fusion at L4-S1 as above discussed. A large peripherally enhancing low- attenuation collection is seen in the soft tissues overlying the postoperative site worrisome for abscess. The majority of the collection appears to be present in the subcutaneous fat superficial to the underlying musculature. However, a portion of the collection extends toward the spinal canal at L5-S1, but clear extension into the spinal canal is not seen with certainty given limitations. 2. Mild nonspecific presacral soft tissue thickening. SL: [id number] 01/02/2018 - - Read by: Johnny Hickey MD Dictated Date/time: 01/02/18 16:10 Electronically Signed by: Johnny Hickey MD 01/02/18 16:25 FINAL REPORT [facility] Ext Lower Venous Doppler Bilat US Ext Lower Venous Doppler Bilat US EXAM: US BILATERAL LOWER EXTREMITY VENOUS DOPPLER DATE: 12/25/2017 at 1042 hours INDICATION: 57-year-old male presenting with Lower extremity edema and tenderness. ADDITIONAL INFORMATION: None. COMPARISON: None. TECHNIQUE: Multiplanar grayscale, color Doppler and spectral Doppler ultrasound of the bilateral lower extremity veins. FINDINGS: Right Thigh Veins: Common Femoral: Patent. Femoral (SFV): Patent. Popliteal: Patent. Proximal Greater Saphenous: Patent. Proximal Deep Femoral Veins: Patent. Left Thigh Veins: Common Femoral: Patent. Femoral (SFV): Patent. Popliteal: Patent. Proximal Greater Saphenous: Patent. Proximal Deep Femoral Veins: Patent. Other: None. IMPRESSION: No deep venous thrombosis (DVT) of the visualized bilateral lower extremities. 12/25/2017 - - This report was dictated by a Alpine Guide/Fellow. I have personally reviewed the images as well as the Resident's interpretation and agree with the findings. Read by: Danica Landry MD Resident: Danica Landry MD Dictated Date/time: 12/25/17 11:31 Electronically Signed by: Bernard Harrington MD 12/25/17 12:09 FINAL REPORT [facility] Spine Thoracic wo contrast MRI Spine Thoracic wo contrast MRI EXAM: MRI THORACIC SPINE WITHOUT CONTRAST EXAM: MRI LUMBAR SPINE WITHOUT CONTRAST DATE: 12/25/2017 12:17 AM CDT INDICATION: - Fluid collection S/P surgery, Weakness lower extremities ADDITIONAL INFORMATION: None COMPARISON: MRI lumbar spine dated 10/27/2017. CT lumbar spine dated 10/26/2017. TECHNIQUE: Multisequence, multiplanar MRI imaging of the thoracic and lumbar spine. Postcontrast images of the thoracic spine were attempted. Postcontrast images of the lumbar spine were not attempted due to IV site infiltration. IV contrast: 18 mL. FINDINGS: There is a L4-S1 yin and pedicular screw fixation, with removal of the right sacral screw and additional fixation screws in the bilateral posterior iliac bones. There is an L5 laminectomy. There is normal bone marrow signal intensity. No cord compression or abnormal cord signal is identified. Thecal sac is not collapsed. Cervical spine: The cervical spine is only partially visualized. 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 THORACIC SPINE The vertebral alignment is normal. The vertebral heights are maintained. Schmorl's nodes are noted at T7, T10-T12. Intervertebral disc heights and signal intensity are preserved. There is no significant spinal canal or neural foraminal stenosis. LUMBAR SPINE The vertebral alignment is normal. The vertebral heights are maintained. Intervertebral disc heights and signal intensity are preserved. There is limited evaluation of the neural foramen at L4 and L5 due to artifact. There is mild narrowing of the spinal canal at the L4 and L5 levels. The conus terminates at L1. It demonstrates normal signal intensity. There is no abnormal thickening of the filum. OTHER: A multiloculated fluid collection measuring 14.5 x 5.1 cm is seen within the soft tissues posterior to the lumbar spine, extending from the L2-S3 levels. The fluid collection fills what was previously a soft tissue defect on 10/27/2017, and insinuates through the laminectomy defect at L5, without abutting the thecal sac. There is mild surrounding soft tissue edema. There is no hydronephrosis bilaterally. Left para-aortic lobular soft tissue density (series 1001 image 31) may relate to lymph nodes or varices. IMPRESSION: 1. Multiloculated fluid collection in the soft tissues posterior to the lumbar spine and sacrum, which insinuates through the laminectomy defect at L5 without abutting the thecal sac. This likely represents a seroma. There is mild surrounding soft tissue edema. 2. The L4-S1 and posterior iliac bone screw fixation is again seen. 12/25/2017 - - This report was dictated by a Alpine Guide/Fellow. I have personally reviewed the images as well as the Resident's interpretation and agree with the findings. Read by: Tad Hayward MD Resident: Tad Hayward MD Dictated Date/time: 12/25/17 08:32 Electronically Signed by: Everett Bennett MD 12/26/17 08:25 FINAL REPORT [facility] Spine lumbar wo contrast MRI Spine lumbar wo contrast MRI EXAM: MRI THORACIC SPINE WITHOUT CONTRAST EXAM: MRI LUMBAR SPINE WITHOUT CONTRAST DATE: 12/25/2017 12:17 AM CDT INDICATION: - Fluid collection S/P surgery, Weakness lower extremities ADDITIONAL INFORMATION: None COMPARISON: MRI lumbar spine dated 10/27/2017. CT lumbar spine dated 10/26/2017. TECHNIQUE: Multisequence, multiplanar MRI imaging of the thoracic and lumbar spine. Postcontrast images of the thoracic spine were attempted. Postcontrast images of the lumbar spine were not attempted due to IV site infiltration. IV contrast: 18 mL. FINDINGS: There is a L4-S1 yin and pedicular screw fixation, with removal of the right sacral screw and additional fixation screws in the bilateral posterior iliac bones. There is an L5 laminectomy. There is normal bone marrow signal intensity. No cord compression or abnormal cord signal is identified. Thecal sac is not collapsed. Cervical spine: The cervical spine is only partially visualized. 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 THORACIC SPINE The vertebral alignment is normal. The vertebral heights are maintained. Schmorl's nodes are noted at T7, T10-T12. Intervertebral disc heights and signal intensity are preserved. There is no significant spinal canal or neural foraminal stenosis. LUMBAR SPINE The vertebral alignment is normal. The vertebral heights are maintained. Intervertebral disc heights and signal intensity are preserved. There is limited evaluation of the neural foramen at L4 and L5 due to artifact. There is mild narrowing of the spinal canal at the L4 and L5 levels. The conus terminates at L1. It demonstrates normal signal intensity. There is no abnormal thickening of the filum. OTHER: A multiloculated fluid collection measuring 14.5 x 5.1 cm is seen within the soft tissues posterior to the lumbar spine, extending from the L2-S3 levels. The fluid collection fills what was previously a soft tissue defect on 10/27/2017, and insinuates through the laminectomy defect at L5, without abutting the thecal sac. There is mild surrounding soft tissue edema. There is no hydronephrosis bilaterally. Left para-aortic lobular soft tissue density (series 1001 image 31) may relate to lymph nodes or varices. IMPRESSION: 1. Multiloculated fluid collection in the soft tissues posterior to the lumbar spine and sacrum, which insinuates through the laminectomy defect at L5 without abutting the thecal sac. This likely represents a seroma. There is mild surrounding soft tissue edema. 2. The L4-S1 and posterior iliac bone screw fixation is again seen. 12/25/2017 - - This report was dictated by a Alpine Guide/Fellow. I have personally reviewed the images as well as the Resident's interpretation and agree with the findings. Read by: Tad Hayward MD Resident: Tad Hayward MD Dictated Date/time: 12/25/17 08:32 Electronically Signed by: Everett Bennett MD 12/26/17 08:25 FINAL REPORT [facility] Abdomen Soft Tissue US Abdomen Soft Tissue US Clinical Indication: - concern for possible Abscess overlying the surgical site in the lumbar area.. Comparison: None. TECHNIQUE: Limited ultrasound of the posterior lumbar region at the site of the patient's abnormality. Findings: Imaging of the posterior lumbar spine reveals a heterogeneous largely hypoechoic lesion measuring up to 9.6 x 1.5 x 8.1 cm. There are numerous internal septations. No internal vascularity. IMPRESSION: Heterogeneous largely cystic lesion within the subcutaneous tissues of the lumbar spine. Differential diagnosis includes postoperative seroma, hematoma or abscess. SL: AMIRA 12/24/2017 - - Read by: Walter Barger MD Dictated Date/time: 12/24/17 20:27 Electronically Signed by: Walter Barger MD 12/24/17 20:34 FINAL REPORT [facility] Foot series DX Foot series DX Patient Name: FREDERIC SUMNER : 1960; Age: 57 years y/o Male MR: [id number] Study: Foot series DX 12/24/2017 6:50 PM CDT Ordering Physician: Win Sanders MD Comparison: None Clinical Indication: - FALL; right foot injury 3 views right foot. Healed deformity of the proximal phalanx of the right 3rd toe. No acute fracture, dislocation or osteolysis. No radiopaque foreign body. Nonspecific soft tissue swelling at the dorsal and plantar aspect of the mid to forefoot. SL: [id number] 12/24/2017 - - Read by: Angel Iverson MD Dictated Date/time: 12/24/17 19:58 Electronically Signed by: Angel Iverson MD 12/24/17 20:00 FINAL REPORT [facility] Ankle 3 views DX Ankle 3 views DX Patient Name: FREDERIC SUMNER : 1960; Age: 57 years y/o Male MR: [id number] * RIGHT ANKLE, 3 views History: Injury, trauma to right ankle. Status post fall Technique: Frontal, lateral, and oblique radiographs of the right ankle were obtained. FINDINGS: There is no evidence of fracture, dislocation, or acute change. The ankle mortise is intact. There are no degenerative changes or other significant osseous abnormalities. IMPRESSION: 1. Negative right ankle. SL: SHIKHA 12/24/2017 - - Read by: Harrison Gomez MD Dictated Date/time: 12/24/17 19:31 Electronically Signed by: Harrison Gomez MD 12/24/17 19:31 FINAL REPORT [facility] Ext Upper & Lower Venous Doppler Ramón US Ext Upper & Lower Venous Doppler Ramón US EXAM: US BILATERAL UPPER EXTREMITY VENOUS DOPPLER EXAM: US BILATERAL LOWER EXTREMITY VENOUS DOPPLER DATE: 11/13/2017 6:44 AM CDT INDICATION: - rule out dvt ADDITIONAL INFORMATION: None. COMPARISON: Ultrasound Doppler bilateral upper and lower extremities from 11/10/2017. TECHNIQUE: Multiplanar grayscale, color Doppler and spectral Doppler ultrasound of the bilateral upper and lower extremity veins. FINDINGS: Right Upper Extremity Veins: Internal Jugular: Patent. Subclavian: Patent. Catheter visible. Axillary: Patent. Catheter visible. Brachial: Patent. Basilic: Patent. Catheter visible. Cephalic: Patent. Left Upper Extremity Veins: Internal Jugular: Patent. Subclavian: Patent. Axillary: Patent. Brachial: Patent. Basilic: Patent. Cephalic: Patent. Right Thigh Veins: Common Femoral: Patent. Femoral (SFV): Patent. Popliteal: Patent. Proximal Greater Saphenous: Patent. Proximal Deep Femoral Veins: Patent. Left Thigh Veins: Common Femoral: Patent. Femoral (SFV): Patent. Popliteal: Patent. Proximal Greater Saphenous: Patent. Proximal Deep Femoral Veins: Patent. Other: None. IMPRESSION: 1. No deep venous thrombosis (DVT) in the visualized vessels. 2. Intravenous catheter seen in the basilic vein, extending into the axillary and subclavian veins. 3. Patent right cephalic vein, thrombus seen on previous exam is not visualized. 11/13/2017 - - This report was dictated by a Alpine Guide/Fellow. I have personally reviewed the images as well as the Resident's interpretation and agree with the findings. Read by: Hermes Mejia MD Resident: Hermes Mejia MD Dictated Date/time: 11/13/17 10:28 Electronically Signed by: Bernard Harrington MD 11/13/17 11:08 FINAL REPORT [facility] Chest 1view DX Chest 1view DX EXAM: XR CHEST 1 VIEW DATE: 11/10/2017 4:20 PM CDT INDICATION: - r.o infection COMPARISON: November 06, 2017. TECHNIQUE: AP chest IMPRESSION: 1. Right upper extremity PICC with tip projects over the mid right atrium is noted, retraction for 5 cm is recommended. 2. Diminished lung volumes bilaterally with prominent sinus trachea. No consolidative changes. 3. Costophrenic sulci are sharp. 4. Osseous structures are stable. 11/10/2017 - - Read by: Darren Vasquez MD Dictated Date/time: 11/10/17 21:51 Electronically Signed by: Darren Vasquez MD 11/10/17 21:56 FINAL REPORT [facility] Ext Upper & Lower Venous Doppler Ramón US Ext Upper & Lower Venous Doppler Ramón US EXAM: US BILATERAL UPPER EXTREMITY VENOUS DOPPLER EXAM: US BILATERAL LOWER EXTREMITY VENOUS DOPPLER DATE: 11/10/2017 4:20 PM CDT INDICATION: Venous thrombosis deep veins distal lower extremity. Evaluate for deep venous thrombosis. ADDITIONAL INFORMATION: None. COMPARISON: 11/04/2017. TECHNIQUE: Multiplanar grayscale, color Doppler and spectral Doppler ultrasound of the bilateral upper and lower extremity veins. FINDINGS: Right Upper Extremity Veins: Internal Jugular: Patent. Subclavian: Patent. Axillary: Patent. Brachial: Not imaged proximally secondary to bandaging material. Patent distally.. Basilic: Not imaged proximally secondary to bandaging material. Patent distally Cephalic: Incompletely compressible hypoechoic nonocclusive thrombus is seen in the right cephalic vein. Left Upper Extremity Veins: Internal Jugular: Patent. Subclavian: Patent. Axillary: Patent. Brachial: Patent. Basilic: Patent. Cephalic: Patent. Right Thigh Veins: Common Femoral: Patent. Femoral (SFV): Patent. Popliteal: Patent. Proximal Greater Saphenous: Patent. Deep Femoral Veins: Patent. Left Thigh Veins: Common Femoral: Patent. Femoral (SFV): Patent. Popliteal: Patent. Proximal Greater Saphenous: Patent. Deep Femoral Veins: Patent. Other: None. IMPRESSION: 1. No deep venous thrombosis is seen in all 4 extremities. 2. Limited evaluation of the right brachial and basilic veins secondary to bandaging material. 3. Partially occlusive venous thrombosis of the cephalic vein, relatively stable from the prior exam. 11/10/2017 - - Read by: Justen Howard MD Dictated Date/time: 11/11/17 07:45 Electronically Signed by: Justen Howard MD 11/11/17 07:50 FINAL REPORT [facility] Chest 1 v for Placement DX Chest 1 v for Placement DX Chest one view, 11/06/2017 at 1459 HISTORY: 57-year-old man with line placement. FINDINGS: Comparison is made to November 02. Cardiomediastinal silhouette is unchanged. Left lower lobe platelike atelectasis. No pleural effusions. Right-sided PICC line has its tip at the atriocaval junction. Old healed left- sided rib fractures. IMPRESSION: 1. Subsegmental atelectasis. 2. Tip of the right-sided PICC line is at the atriocaval junction. 11/06/2017 - - Read by: Mehreen Lake MD Dictated Date/time: 11/06/17 16:14 Electronically Signed by: Mehreen Lake MD 11/06/17 16:15 FINAL REPORT [facility] Ext Upper & Lower Venous Doppler Ramón US Ext Upper & Lower Venous Doppler Ramón US EXAM: US BILATERAL UPPER EXTREMITY VENOUS DOPPLER EXAM: US BILATERAL LOWER EXTREMITY VENOUS DOPPLER DATE: 11/04/2017 7:36 AM CDT INDICATION: - screening ADDITIONAL INFORMATION: None. COMPARISON: October 30, 2017 TECHNIQUE: Multiplanar grayscale, color Doppler and spectral Doppler ultrasound of the bilateral upper and lower extremity veins. FINDINGS: Right Upper Extremity Veins: Internal Jugular: Patent. Subclavian: Patent. Axillary: Patent. Brachial: Patent. Basilic: Partially thrombosed Cephalic: Thrombosed Left Upper Extremity Veins: Internal Jugular: Patent. Subclavian: Patent. Axillary: Patent. Brachial: Patent. Basilic: Patent. Cephalic: Patent. Right Thigh Veins: Common Femoral: Patent. Femoral (SFV): Patent. Popliteal: Patent. Proximal Greater Saphenous: Patent. Deep Femoral Veins: Patent. Left Thigh Veins: Common Femoral: Patent. Femoral (SFV): Patent. Popliteal: Patent. Proximal Greater Saphenous: Patent. Deep Femoral Veins: Patent. Other: None. IMPRESSION: No deep venous thrombosis. Occlusive thrombus in the right cephalic vein. Nonocclusive thrombosis of the right basilic vein. No significant change since prior examination. [place] SECTION: Body 11/04/2017 - - This report was dictated by a Alpine Guide/Fellow. I have personally reviewed the images as well as the Resident's interpretation and agree with the findings. Read by: Yoni Justice MD Resident: Yoni Justice MD Dictated Date/time: 11/04/17 14:53 Electronically Signed by: Edgar Yepez MD 11/05/17 07:16 FINAL REPORT [facility] Chest 2 views DX Chest 2 views DX EXAM: XR CHEST 2 VIEWS DATE: 11/02/2017 8:14 AM CDT INDICATION: - bradycardia FINDINGS: PA and lateral views of the chest are compared to October 31. Cardiomediastinal silhouette is unchanged. Heart is prominent. Cardiothoracic ratio measures 19/32 cm. A right-sided PICC line remains in place. The lungs are clear. No pleural effusions. Old healed left-sided rib fractures. Dextroscoliosis of the thoracic spine. IMPRESSION: 1. Cardiomegaly. 2. The lungs are clear. 11/02/2017 - - Read by: Mehreen Lake MD Dictated Date/time: 11/02/17 15:06 Electronically Signed by: Mehreen Lake MD 11/02/17 15:17 FINAL REPORT [facility] Chest 1 v for Placement DX Chest 1 v for Placement DX EXAM: XR CHEST 1 VIEW DATE: 10/31/2017 12:55 PM CDT INDICATION: Line Placement - Chest 1 view for line placement COMPARISON: October 26, 2017 TECHNIQUE: AP chest IMPRESSION: 1. Interval placement of right upper extremity PICC with tip terminates at the atriocaval junction. No complications. 2. Lungs are clear. Costophrenic sulci are sharp. 3. Cardiomediastinal silhouette is mildly enlarged, unchanged. 4. Osseous structures are stable. 10/31/2017 - - Read by: Darren Vasquez MD Dictated Date/time: 10/31/17 14:40 Electronically Signed by: Darren Vasquez MD 10/31/17 14:42 FINAL REPORT [facility] Ext Upper & Lower Venous Doppler Ramón US Ext Upper & Lower Venous Doppler Ramón US EXAM: US BILATERAL UPPER EXTREMITY VENOUS DOPPLER EXAM: US BILATERAL LOWER EXTREMITY VENOUS DOPPLER DATE: 10/30/2017 6:53 AM CDT INDICATION: - r/o dvt ADDITIONAL INFORMATION: None. COMPARISON: None. TECHNIQUE: Multiplanar grayscale, color Doppler and spectral Doppler ultrasound of the bilateral upper and lower extremity veins. FINDINGS: Right Upper Extremity Veins: Internal Jugular: Patent. Subclavian: Patent. Axillary: Patent. Brachial: Patent. Basilic: Patent. Cephalic: Occlusive thrombus in right cephalic vein. Left Upper Extremity Veins: Internal Jugular: Patent. Subclavian: Patent. Axillary: Patent. Brachial: Patent. Basilic: Patent. Cephalic: Patent. Right Thigh Veins: Common Femoral: Patent. Femoral (SFV): Patent. Popliteal: Patent. Proximal Greater Saphenous: Patent. Deep Femoral Veins: Patent. Left Thigh Veins: Common Femoral: Patent. Femoral (SFV): Patent. Popliteal: Patent. Proximal Greater Saphenous: Patent. Deep Femoral Veins: Patent. Other: None. IMPRESSION: 1. No deep venous thrombosis (DVT) in bilateral upper extremity and thigh veins. 2. Superficial thrombophlebitis in right cephalic vein. 10/30/2017 - - This report was dictated by a Alpine Guide/Fellow. I have personally reviewed the images as well as the Resident's interpretation and agree with the findings. Read by: Jesusita Miller MD Resident: Jesusita Miller MD Dictated Date/time: 10/30/17 14:55 Electronically Signed by: Bernard Harrington MD 10/30/17 16:09 FINAL REPORT [facility] TOXICOLOGY Vanco Tr TND 16:00 10/28/2017 [facility] TOXICOLOGY Vanco Tr 8.5 ug/ml 10/28/2017 [facility] CHEM PANEL A/G Ratio 0.5 0.7 - 1.6 10/28/2017 [facility] CHEM PANEL B/C Ratio 9 6 - 25 10/28/2017 [facility] CHEM PANEL Globulin 3.7 g/dL 2.7 - 4.2 10/28/2017 [facility] CHEM PANEL AGAP 12.4 meq/L 10.0 - 20.0 10/28/2017 [facility] CHEM PANEL eGFR 107 mL/min/1.73m2 10/28/2017 Result Comment: The eGFR is calculated using the [...] from the National Kidney Disease Education Program (NKDEP) which additionally recommends that when the eGFR is used in patients with extremes of body mass index for purposes of drug dosing, the eGFR should be multiplied by the estimated BMI. [facility] CHEM PANEL Bili Total 0.3 mg/dL 0.2 - 1.3 10/28/2017 [facility] CHEM PANEL AST 27 unit/L 0 - 37 10/28/2017 [facility] CHEM PANEL Alk Phos 65 unit/L 39 - 136 10/28/2017 [facility] CHEM PANEL ALT 18 unit/L 0 - 65 10/28/2017 [facility] CHEM PANEL Albumin Lvl 2.0 g/dL 3.5 - 5.0 10/28/2017 [facility] CHEM PANEL Total Protein 5.7 g/dL 6.4 - 8.4 10/28/2017 [facility] CHEM PANEL Calcium Lvl 7.8 mg/dL 8.5 - 10.5 10/28/2017 [facility] CHEM PANEL CO2 20 meq/L 24 - 32 10/28/2017 [facility] CHEM PANEL Potassium Lvl 3.4 meq/L 3.5 - 5.1 10/28/2017 [facility] CHEM PANEL Chloride Lvl 110 meq/L 95 - 109 10/28/2017 [facility] CHEM PANEL Sodium Lvl 139 meq/L 135 - 145 10/28/2017 [facility] CHEM PANEL Creatinine Lvl 0.68 mg/dL 0.50 - 1.40 10/28/2017 [facility] CHEM PANEL BUN 6 mg/dL 7 - 22 10/28/2017 [facility] CHEM PANEL Glucose Lvl 93 mg/dL 70 - 99 10/28/2017 [facility] HEMATOLOGY Hypochrom 1+ (10/28/17 7:21 AM) None Seen 10/28/2017 [facility] Monocytes # 0.5 K/CMM 0.0 - 0.8 10/28/2017 [facility] Microcyte 1+ *ABN* (10/28/17 7:21 AM) None Seen 10/28/2017 [facility] Eosinophils # 0.1 K/CMM 0.0 - 0.5 10/28/2017 [facility] Lymphocytes # 0.9 K/CMM 1.0 - 5.5 10/28/2017 [facility] Neutrophils # 2.4 K/CMM 1.5 - 8.1 10/28/2017 [facility] Basophils 0.9 % 0.0 - 1.0 10/28/2017 [facility] Eosinophils 3.0 % 0.0 - 4.0 10/28/2017 [facility] Lymphocytes 22.5 % 20.0 - 40.0 10/28/2017 [facility] Segs 61.9 % 45.0 - 75.0 10/28/2017 [facility] Monocytes 11.7 % 2.0 - 12.0 10/28/2017 [facility] Plt Morph Normal (10/28/17 7:21 AM) 10/28/2017 [facility] RDW 18.9 % 11.5 - 14.5 10/28/2017 [facility] Platelet 149 K/CMM 133 - 450 10/28/2017 [facility] MPV 8.5 fL 7.4 - 10.4 10/28/2017 [facility] MCV 75.8 fL 80.0 - 94.0 10/28/2017 [facility] MCH 24.7 pg 27.0 - 31.0 10/28/2017 [facility] MCHC 32.6 g/dL 32.0 - 36.0 10/28/2017 [facility] RBC 3.56 M/CMM 4.70 - 6.10 10/28/2017 [facility] Hgb 8.8 g/dL 14.0 - 18.0 10/28/2017 [facility] Hct 27.0 % 42.0 - 54.0 10/28/2017 [facility] WBC 3.8 K/CMM 3.7 - 10.4 10/28/2017 [facility] Gram Stain Report Moderate WBC's Rare Gram Positive Cocci 10/27/2017 [facility] Culture: Wound/Abscess w/Gram Stain Rare Staphylococcus Species, Not S. aureus Moderate Group A Beta Hemolytic Streptococcus No susceptibility performed since these organisms are predictably susceptible to penicillin. If patient is penicillin allergic or susceptibility testing for additional antibiotics is clinically warranted please call the laboratory. 10/27/2017 [facility] BLOOD BANK RESULTS ABO/Rh A POS 10/27/2017 [facility] BLOOD BANK RESULTS Antibody Scrn Negative (10/27/17 4:48 AM) 10/27/2017 [facility] Spine lumbar w/wo contrast MRI Spine lumbar w/wo contrast MRI Clinical Indication: - epidural abscess. GFR 77, 20 cc Multihance Lot [id number] // Kirti; lumbar surgery 2 months ago, suture removal 2 weeks ago, currently complaining of severe lower back pain with difficulty ambulating, moving, and laying flat Comparison: CT L-spine dated 10/26/2017 TECHNIQUE: Multiplanar T1, T2, STIR weighted noncontrast MRI of the lumbar spine is performed on the 1.5 Annmarie magnet. Post-contrast sequences were also obtained. Contrast: 20 cc of IV MultiHance was administered. FINDINGS: ALIGNMENT AND GENERAL ASSESSMENT: Stable appearance of posterior spinal instrumentation and fusion from L4-S1. Laminectomies and spinous process resections are noted at these levels. The hardware is well-placed. Bone graft material is noted about the posterior fixation hardware. No definite osseous fusion is noted at these levels. There is a large soft tissue defect measuring up to 4.9 cm in CC dimension, which extends from the dermal surface to the level of the bone graft material. At the level of the L3 spinous process, there is a 1.9 x 6 x 9 mm rim-enhancing fluid collection. There is a irregular 1.3 x 1.1 x 2.3 cm rim-enhancing collection in the soft tissues posterior to the L4 vertebral body in the expected region of the resected spinous process. The intervertebral disc do not demonstrate abnormal enhancement. There is no significant disc height loss. There is normal alignment of the lumbar spine. There is subtly abnormal increased T1 weighted hypointensity noted throughout the thoracolumbar spine, without focal lesions. There is no fracture. The anterior and posterior paraspinal soft tissues are normal. The conus medullaris ends at the L1 level. There is no abnormal contrast enhancement in the region of the conus medullaris or epidural space. For the sake of nomenclature, five lumbar vertebrae are assumed. DISC SPACES: T12-L1: The disc is normal. There is no significant central canal or foraminal stenosis. The facet joints are unremarkable. L1-L2: The disc is normal. There is no significant central canal or foraminal stenosis. The facet joints are unremarkable. L2-L3: The disc is normal. There is no significant central canal or foraminal stenosis. The facet joints are unremarkable. L3-L4: The disc is normal. There is no significant central canal or foraminal stenosis. The facet joints are unremarkable. L4-L5: The disc is normal. There is no significant central canal or foraminal stenosis. The facet joints are unremarkable. L5-S1: The disc is normal. There is no significant central canal or foraminal stenosis. The facet joints are unremarkable. OTHER: The remaining visualized soft tissue and osseous structures are grossly unremarkable. IMPRESSION: 1. Status post PSIF from L4-S1. 2. No evidence of spondylodiscitis. 3. Large soft tissue defect overlying the fusion hardware. A 2.3 cm rim-enhancing collection in the posterior paravertebral soft tissues at the level of L4, representing seroma, abscess, or evolving hematoma. 4. In the paraspinal musculature adjacent to the L3 spinous process, a 1.3 cm rim- enhancing fluid collection, representing seroma, abscess, or evolving hematoma versus an exophytic synovial cyst. 5. Subtle diffuse marrow signal abnormality, may be related to anemia. SL: RADHA 10/27/2017 - - Read by: Tiffany Bishop MD Dictated Date/time: 10/28/17 11:43 Electronically Signed by: Tiffany Bishop MD 10/28/17 12:03 FINAL REPORT [facility] BLOOD BANK RESULTS RBC product Product available (10/26/17 9:51 PM) 10/27/2017 [facility] URINE AND STOOL UA [place] Yeast Few /HPF None Seen /HPF 10/26/2017 [facility] URINE AND STOOL UA WBC 3-5 /HPF None Seen /HPF 10/26/2017 [facility] URINE AND STOOL UA Bacteria Occasional /HPF None Seen /HPF 10/26/2017 [facility] URINE AND STOOL UA RBC 6-10 /HPF 0 - 2 10/26/2017 [facility] URINE AND STOOL UA Sq Epi Rare /LPF Few /LPF 10/26/2017 [facility] URINE AND STOOL UA Glucose Negative (10/26/17 3:17 PM) Negative 10/26/2017 [facility] URINE AND STOOL UA Protein 100 mg/dL Negative mg/dL 10/26/2017 [facility] URINE AND STOOL UA Urobilinogen 1.0 EU/dL 0.1 - 1.0 10/26/2017 [facility] URINE AND STOOL UA Nitrite Negative (10/26/17 3:17 PM) Negative 10/26/2017 [facility] URINE AND STOOL UA Leuk Est Negative (10/26/17 3:17 PM) Negative 10/26/2017 [facility] URINE AND STOOL UA Blood Large *ABN* (10/26/17 3:17 PM) Negative 10/26/2017 [facility] URINE AND STOOL UA Ketones >=80 mg/dL Negative mg/dL 10/26/2017 [facility] URINE AND STOOL UA Bili Small *ABN* (10/26/17 3:17 PM) Negative 10/26/2017 [facility] URINE AND STOOL UA pH 6.5 5.0 - 8.0 10/26/2017 [facility] URINE AND STOOL UA Spec Grav 1.015 <=1.030 10/26/2017 [facility] URINE AND STOOL UA Turbidity Slight Cloudy (10/26/17 3:17 PM) Clear 10/26/2017 [facility] URINE AND STOOL UA Color Yellow *NA* (10/26/17 3:17 PM) Yellow 10/26/2017 [facility] CARDIAC ENZYMES Troponin-I <0.02 ng/mL 0.00 - 0.40 10/26/2017 [facility] CARDIAC ENZYMES Total CK 129 unit/L 12 - 191 10/26/2017 [facility] CHEM PANEL Procalcitonin Lvl 3.76 ng/mL 0.00 - 0.10 10/26/2017 Result Comment: Critical Result(s) called to Mike at 10/26/2017 17:42 by cameron. Read back OK. [facility] CHEM PANEL eGFR 77 mL/min/1.73m2 10/26/2017 Result Comment: The eGFR is calculated using the [...] from the National Kidney Disease Education Program (NKDEP) which additionally recommends that when the eGFR is used in patients with extremes of body mass index for purposes of drug dosing, the eGFR should be multiplied by the estimated BMI. [facility] CHEM PANEL Sodium Lvl 132 meq/L 135 - 145 10/26/2017 [facility] CHEM PANEL Creatinine Lvl 1.07 mg/dL 0.50 - 1.40 10/26/2017 [facility] CHEM PANEL CO2 22 meq/L 24 - 32 10/26/2017 [facility] CHEM PANEL Chloride Lvl 100 meq/L 95 - 109 10/26/2017 [facility] CHEM PANEL Alk Phos 76 unit/L 39 - 136 10/26/2017 [facility] CHEM PANEL AST 49 unit/L 0 - 37 10/26/2017 [facility] CHEM PANEL Total Protein 6.6 g/dL 6.4 - 8.4 10/26/2017 [facility] CHEM PANEL A/G Ratio 0.6 0.7 - 1.6 10/26/2017 [facility] CHEM PANEL ALT 21 unit/L 0 - 65 10/26/2017 [facility] CHEM PANEL B/C Ratio 15 6 - 25 10/26/2017 [facility] CHEM PANEL Calcium Lvl 7.7 mg/dL 8.5 - 10.5 10/26/2017 [facility] CHEM PANEL AGAP 13.4 meq/L 10.0 - 20.0 10/26/2017 [facility] CHEM PANEL Potassium Lvl 3.4 meq/L 3.5 - 5.1 10/26/2017 [facility] CHEM PANEL Globulin 4.1 g/dL 2.7 - 4.2 10/26/2017 [facility] CHEM PANEL Albumin Lvl 2.5 g/dL 3.5 - 5.0 10/26/2017 [facility] CHEM PANEL Bili Total 0.4 mg/dL 0.2 - 1.3 10/26/2017 [facility] CHEM PANEL BUN 16 mg/dL 7 - 22 10/26/2017 [facility] CHEM PANEL Glucose Lvl 97 mg/dL 70 - 99 10/26/2017 [facility] CHEM PANEL Lactic Acid Lvl 1.3 mMol/L 0.5 - 2.2 10/26/2017 [facility] Microcyte 2+ *ABN* (10/26/17 2:26 PM) None Seen 10/26/2017 [facility] Monocytes # 0.5 K/CMM 0.0 - 0.8 10/26/2017 [facility] Monocytes 10.6 % 2.0 - 12.0 10/26/2017 [facility] Basophils 0.4 % 0.0 - 1.0 10/26/2017 [facility] Eosinophils 0.4 % 0.0 - 4.0 10/26/2017 [facility] Neutrophils # 3.3 K/CMM 1.5 - 8.1 10/26/2017 [facility] Lymphocytes # 0.5 K/CMM 1.0 - 5.5 10/26/2017 [facility] Lymphocytes 11.7 % 20.0 - 40.0 10/26/2017 [facility] Segs 76.9 % 45.0 - 75.0 10/26/2017 [facility] INR 1.29 0.85 - 1.17 10/26/2017 [facility] PT 16.2 s 12.0 - 14.7 10/26/2017 [facility] MPV 8.4 fL 7.4 - 10.4 10/26/2017 [facility] Platelet 149 K/CMM 133 - 450 10/26/2017 [facility] MCV 70.8 fL 80.0 - 94.0 10/26/2017 [facility] MCHC 32.9 g/dL 32.0 - 36.0 10/26/2017 [facility] MCH 23.3 pg 27.0 - 31.0 10/26/2017 [facility] RDW 17.9 % 11.5 - 14.5 10/26/2017 [facility] Hgb 7.0 g/dL 14.0 - 18.0 10/26/2017 Result Comment: Critical Result(s) called to Yordy Arnold at 10/26/2017 14:51 by Ry. Read back OK. [facility] HEMATOLOGY Hct 21.3 % 42.0 - 54.0 10/26/2017 [facility] RBC 3.01 M/CMM 4.70 - 6.10 10/26/2017 [facility] WBC 4.3 K/CMM 3.7 - 10.4 10/26/2017 [facility] PTT 42.6 s 22.9 - 35.8 10/26/2017 [facility] TOXICOLOGY Ethanol Lvl 1 mg/dL 10/26/2017 [facility] TOXICOLOGY Etoh (%) 0.001 % 10/26/2017 [facility] Spine lumbar w contrast CT Spine lumbar w contrast CT Clinical Indication: - Abscess; lumbar surgery 2 months ago with 8 cm open wound extending down as much as 15+ centimeters Comparison: Magnetic resonance imaging L-spine dated 06/11/2017; CT L-spine dated 04/27/2017 TECHNIQUE: Sequential trans-axial images were obtained with a multi-detector helical CT. Coronal and sagittal reconstructions were obtained. Contrast: 100 mL of IV Omnipaque CT imaging performed at this location utilizes radiation dose optimization techniques which include one or more of the following: -Automated exposure control -Adjustment of the mA and/or kV according to patient size -Use of iterative reconstruction technique CT Radiation Dose DLP 991 mGy-cm FINDINGS: ALIGNMENT AND GENERAL ASSESSMENT: There are 5 nonrib-bearing lumbar vertebral segments. Stable appearance of posterior spinal instrumentation and fusion from L4-S1. Laminectomies and spinous process resections are noted at these levels. The hardware is well-placed. Bone graft material is noted about the posterior fixation hardware. No definite osseous fusion is noted at these levels. There is a large soft tissue defect measuring up to 4.9 cm in CC dimension, which extends from the dermal surface to the level of the bone graft material. There is subtle endplate irregularity along the left inferior aspect of L5 and to a lesser degree the left inferior endplate of L4. There is subtle curvilinear enhancement which appears to arise from the disc space at L5/S1. There is normal alignment of the lumbar spine. The anterior and posterior paraspinal soft tissues are unremarkable. There are no fractures or subluxations of the lumbar spine. There are no pars interarticularis defects and no spondylolisthesis. The facet joints are well aligned. DISK SPACES AND SOFT TISSUES: MRI has higher sensitivity and specificity for disc and soft tissue disease. T12-L1: The disk is unremarkable. The facet joints appear unremarkable. There is no central or foraminal stenosis. L1-L2: The disk is unremarkable. The facet joints appear unremarkable. There is no central or foraminal stenosis. L2-L3: The disk is unremarkable. The facet joints appear unremarkable. There is no central or foraminal stenosis. L3-L4: The disk is unremarkable. The facet joints appear unremarkable. There is no central or foraminal stenosis. L4-L5: The disk is unremarkable. The facet joints appear unremarkable. There is no central or foraminal stenosis. L5-S1: The disk is unremarkable. The facet joints appear unremarkable. There is no central or foraminal stenosis. OTHER: Partially visualized changes of abdominoperineal resection. If there is further concern, CT myelogram or MRI of the lumbar spine may be performed for complete assessment. IMPRESSION: 1. Status post PSIF from L4-S1. 2. Large soft tissue defect overlying the fusion hardware, extending to the level of the bone graft material. No definite superficial soft tissue focal fluid collections. 3. Subtle irregularity of the left inferior endplate of L5, and to a lesser degree the inferior left L4 endplate, as well as a possible anterior epidural rim- enhancing collection arising from the L5/S1 intervertebral disc space. Given the overlying skin defect, recommend magnetic resonance imaging with IV contrast to evaluate for osteodiscitis. SL: RADHA 10/26/2017 - - Read by: Tiffany Bishop MD Dictated Date/time: 10/26/17 16:17 Electronically Signed by: Tiffany Bishop MD 10/26/17 16:38 FINAL REPORT [facility] 1view DX Chest 1view DX Clinical Indication: - Undifferentiated Sepsis Comparison: None FINDINGS: Single AP view of the chest is submitted for interpretation. There is mild pulmonary vascular congestion. The lungs are otherwise clear and there are no effusions. There is no visible pneumothorax. Cardiomediastinal contours are stable. No gross bony normalities are identified. IMPRESSION: 1. Mild pulmonary vascular congestion. MAYRA: STEPH 10/26/2017 - - Read by: Montana Damico MD Dictated Date/time: 10/26/17 15:07 Electronically Signed by: Montana Damico MD 10/26/17 15:08 FINAL REPORT [facility] Automated urine sediment leukocyte count by microscopy (number/high power field) Automated urine sediment leukocyte count by microscopy (number/high power field) NONE 0 - 5 06/17/2017 [facility] Bacteria detection in urine sediment by light microscopy Bacteria detection in urine sediment by light microscopy NONE NONE 06/17/2017 [facility] Epithelial cells detection in urine sediment by light microscopy Epithelial cells detection in urine sediment by light microscopy NONE NONE 06/17/2017 [facility] Erythrocytes detection in urine sediment by light microscopy Erythrocytes detection in urine sediment by light microscopy NONE 0 - 5 06/17/2017 [facility] Specific gravity of Urine by Test strip Specific gravity of Urine by Test strip 1.025 1.010 - 1.025 06/17/2017 [facility] Urine clarity Urine clarity CLEAR CLEAR 06/17/2017 [facility] Urine color determination Urine color determination YELLOW YELLOW 06/17/2017 [facility] Urine erythrocytes detection Urine erythrocytes detection NEGATIVE NEGATIVE 06/17/2017 [facility] Urine glucose detection Urine glucose detection NEGATIVE NEGATIVE 06/17/2017 [facility] Urine ketones detection by automated test strip Urine ketones detection by automated test strip NEGATIVE NEGATIVE 06/17/2017 [facility] Urine leukocyte esterase detection by dipstick Urine leukocyte esterase detection by dipstick NEGATIVE NEGATIVE 06/17/2017 [facility] Urine nitrite detection Urine nitrite detection NEGATIVE NEGATIVE 06/17/2017 [facility] Urine pH measurement by automated test strip Urine pH measurement by automated test strip 5 5 - 7 06/17/2017 [facility] Urine protein measurement by test strip (mass/volume) Urine protein measurement by test strip (mass/volume) NEGATIVE NEGATIVE 06/17/2017 [facility] Urine total bilirubin measurement (mass/volume) Urine total bilirubin measurement (mass/volume) NEGATIVE NEGATIVE 06/17/2017 [facility] Urine urobilinogen measurement by test strip (mass/volume) Urine urobilinogen measurement by test strip (mass/volume) 0.2 0.2 - 1 06/17/2017 [facility] Spine lumbar wo contrast MRI Spine lumbar wo contrast MRI EXAM: MR LUMBAR SPINE WITHOUT CONTRAST DATE: 06/11/2017 8:30 PM CDT INDICATION: Left leg numbness. COMPARISON: 04/27/2017. TECHNIQUE: Multiplanar, multisequence noncontrast MRI of the lumbar spine was performed. FINDINGS: The normal lumbar lordosis is preserved. No abnormalities in sagittal alignment are identified. The vertebral body and disc spaces heights are maintained. The marrow signal is within normal limits. Posterior fusion of the lower lumbar spine is redemonstrated. Bilateral pedicle screws are noted at L4 and L5 with a left pedicle screw noted at S1. Bilateral iliac screws are also visualized. The pedicle screws are stabilized by paired vertical rods, with intervertebral disc spacers at L4-L5 and L5-S1. A laminectomy defect is present at L5. Prior right pedicle screw tract at S1 is also visualized. Edematous changes noted within the posterior soft tissues. The distal spinal cord and cauda equina nerve roots demonstrate normal signal characteristics and caliber. The conus medullaris terminates at the L1 vertebral body level. No intraspinal or paraspinal soft tissue masses are identified. Multilevel degenerative changes of lumbar spine are identified, as follows: L1-L2: No significant degenerative change, without spinal canal or neural foraminal stenosis. L2-L3: No significant degenerative change, without spinal canal or neural foraminal stenosis. L3-L4: No significant degenerative change, without spinal canal or neural foraminal stenosis. L4-L5: Minimal disc bulge with a posterior annular fissure. Mild right neural foraminal stenosis is noted without significant spinal canal or left neural foraminal stenosis. L5-S1: Mild disc bulge with an abnormal position of the L5-S1 disc spacer extending into the left neural foramen. There is moderate to severe left neural foraminal stenosis without significant spinal canal or right neural foraminal stenosis. There is prominence of the anterior epidural space which is not completely suppress on STIR imaging, series 5 image 11. Mild to moderate narrowing of the thecal sac is present. IMPRESSION: 1. Abnormal position of the L5-S1 disc spacer encroaching into the left neural foramen. Associated moderate to severe left neural foraminal stenosis is visualized. 2. Suspected prominence of the anterior epidural fat at the L5-S1 disc space level, associated with mild to moderate narrowing of the thecal sac. However, the signal does not completely suppress on STIR imaging and a complex epidural fluid collection cannot be fully excluded. Postcontrast imaging may be helpful. 3. Evaluation of hardware is somewhat limited on MRI due to susceptibility artifact. 4. Minimal disc bulge with a posterior annular fissure at L4-L5, with mild right neural foraminal stenosis. No other significant degenerative changes present. : [id number] 06/11/2017 - - Read by: Gustavo Gunn MD Dictated Date/time: 06/11/17 21:32 Electronically Signed by: Gustavo Gunn MD 06/11/17 21:42 FINAL REPORT [facility] Spine lumbar 2 or 3 views DX Spine lumbar 2 or 3 views DX Study: Spine lumbar 2 or 3 views DX 06/11/2017 4:31 PM CDT Clinical Indication: - Low back pain after injury; PMH of ca; Comparison: Lumbar x-rays of 03/26/[address] lumbar spine of 04/27/2017 FINDINGS: 3 views lumbar spine on 4 images. Anatomic alignment is stable. Hardware fusion from L4 to S1 including the bilateral innominate bones. Vertebral body height maintained. Endplate margins are intact. No acute bony fracture. IMPRESSION: No acute bony findings. SL: JH-M 06/11/2017 - - Read by: Kiran Howard MD Dictated Date/time: 06/11/17 18:07 Electronically Signed by: Kiran Howard MD 06/11/17 18:10 FINAL REPORT [facility] Spine lumbar wo contrast CT Spine lumbar wo contrast CT CT LUMBAR SPINE Clinical Indication: Surgery 3 months ago, worsening back pain which radiates to the left leg with difficulty walking and occasional urinary incontinence. Comparison: Radiographs dated 03/26/2017. TECHNIQUE: Helical scan of the lumbar spine. Images reviewed in [address] Radiation Dose DLP 942 mGy-cm FINDINGS: ALIGNMENT AND GENERAL ASSESSMENT: There are 5 nonrib-bearing lumbar vertebrae. Normal alignment. With limitations of beam hardening artifact, no spondylolysis or fracture. Facet joints are properly aligned. No focal bone lesions are demonstrated. DISK SPACES, FACET JOINTS AND SOFT TISSUES: MRI has higher sensitivity and specificity for disc and soft tissue disease. T12-L1: No disc abnormality is apparent. Facet joints are unremarkable. No evidence of spinal or foraminal stenosis. L1-L2: No disc abnormality is apparent. Facet joints are unremarkable. No evidence of spinal or foraminal stenosis. L2-L3: No disc abnormality is apparent. Facet joints are unremarkable. No evidence of spinal or foraminal stenosis. L3-L4: No disc abnormality is apparent. Facet joints are unremarkable. No evidence of spinal or foraminal stenosis. L4-L5 and L5-S1: Bilateral pedicle screws at L4 and L5. Left pedicle screw at S1. Bilateral iliac screws also noted. Corresponding bilateral posterior rods. Intervertebral spacer devices on the left side of L4-L5 and L5-S1. Corresponding laminectomy defect at L5. Metallic marker along the posterior margin of the L5- S1 disc space is positioned just posterior to the cortex of the inferior L5 endplate and may encroach upon the left exit foramen (images 81 and 82 of series 4). IMPRESSION: 1. Surgical fusion of the L4-S1 segment with pedicle screws, posterior rods and spacer devices on the left side of L4-L5 and L5-S1. 2. The intervertebral spacer device at L5-S1 may encroach upon the left exit foramen. Correlate for left L5 radiculopathy. SL: RADHA 04/27/2017 - - Read by: Edgar Salazar MD Dictated Date/time: 04/27/17 16:12 Electronically Signed by: Edgar Salazar MD 04/27/17 16:31 FINAL REPORT [facility] lumbar 2 or 3 views DX Spine lumbar 2 or 3 views DX Study: Lumbar spine, 4 views Clinical Indication: Plain films of the lumbar spine from 02/18/2017 Comparison: None FINDINGS: Multiple views of the lumbar spine show postoperative changes of multilevel posterior instrumentation for fusion from L4 through S1 with additional fixation screws traversing the bilateral iliac bones. Overlying surgical skin santosh are seen. No acute compression fracture or subluxation is seen. No hardware fracture or displacement is noted. No suspicious paralleling lucency is seen. New changes of discectomy and interbody spacer placement at L4- L5 and L5-S1 are also seen. The remaining intervertebral disc spaces are well-maintained. IMPRESSION: New changes of multilevel fusion in the lower lumbar spine. No acute bony abnormality or hardware complication is seen. SL: [id number] 03/26/2017 - - Read by: Jacek Noel MD Dictated Date/time: 03/26/17 12:14 Electronically Signed by: Jacek Noel MD 03/26/17 12:15 FINAL REPORT [facility] CHEM PANEL eGFR 98 mL/min/1.73m2 02/18/2017 Result Comment: The eGFR is calculated using the [...] from the National Kidney Disease Education Program (NKDEP) which additionally recommends that when the eGFR is used in patients with extremes of body mass index for purposes of drug dosing, the eGFR should be multiplied by the estimated BMI. [facility] CHEM PANEL Total Protein 7.2 g/dL 6.4 - 8.4 02/18/2017 [facility] CHEM PANEL Albumin Lvl 3.5 g/dL 3.5 - 5.0 02/18/2017 [facility] CHEM PANEL Calcium Lvl 8.6 mg/dL 8.5 - 10.5 02/18/2017 [facility] CHEM PANEL Bili Total 0.4 mg/dL 0.2 - 1.3 02/18/2017 [facility] CHEM PANEL ALT 15 unit/L 0 - 65 02/18/2017 [facility] CHEM PANEL AST 11 unit/L 0 - 37 02/18/2017 [facility] CHEM PANEL Alk Phos 93 unit/L 39 - 136 02/18/2017 [facility] CHEM PANEL Potassium Lvl 3.6 meq/L 3.5 - 5.1 02/18/2017 [facility] CHEM PANEL CO2 25 meq/L 24 - 32 02/18/2017 [facility] CHEM PANEL Chloride Lvl 106 meq/L 95 - 109 02/18/2017 [facility] CHEM PANEL Glucose Lvl 104 mg/dL 70 - 99 02/18/2017 [facility] CHEM PANEL Sodium Lvl 139 meq/L 135 - 145 02/18/2017 [facility] CHEM PANEL Creatinine Lvl 0.84 mg/dL 0.50 - 1.40 02/18/2017 [facility] CHEM PANEL BUN 7 mg/dL 7 - 22 02/18/2017 [facility] CHEM PANEL Globulin 3.7 g/dL 2.7 - 4.2 02/18/2017 [facility] CHEM PANEL B/C Ratio 8 6 - 25 02/18/2017 [facility] CHEM PANEL A/G Ratio 0.9 0.7 - 1.6 02/18/2017 [facility] CHEM PANEL AGAP 11.6 meq/L 10.0 - 20.0 02/18/2017 [facility] HEMATOLOGY MPV 7.6 fL 7.4 - 10.4 02/18/2017 [facility] HEMATOLOGY WBC 7.6 K/CMM 3.7 - 10.4 02/18/2017 [facility] HEMATOLOGY RBC 4.07 M/CMM 4.70 - 6.10 02/18/2017 [facility] HEMATOLOGY Hct 35.2 % 42.0 - 54.0 02/18/2017 [facility] HEMATOLOGY Hgb 11.8 g/dL 14.0 - 18.0 02/18/2017 [facility] MCH 29.0 pg 27.0 - 31.0 02/18/2017 [facility] MCHC 33.5 g/dL 32.0 - 36.0 02/18/2017 [facility] HEMATOLOGY RDW 14.2 % 11.5 - 14.5 02/18/2017 [facility] HEMATOLOGY MCV 86.6 fL 80.0 - 94.0 02/18/2017 [facility] HEMATOLOGY Platelet 184 K/CMM 133 - 450 02/18/2017 [facility] HEMATOLOGY Segs 69.6 % 45.0 - 75.0 02/18/2017 [facility] HEMATOLOGY Lymphocytes 18.1 % 20.0 - 40.0 02/18/2017 [facility] HEMATOLOGY Monocytes 5.5 % 2.0 - 12.0 02/18/2017 [facility] HEMATOLOGY Eosinophils 6.0 % 0.0 - 4.0 02/18/2017 [facility] HEMATOLOGY Lymphocytes # 1.4 K/CMM 1.0 - 5.5 02/18/2017 [facility] HEMATOLOGY Basophils 0.8 % 0.0 - 1.0 02/18/2017 [facility] HEMATOLOGY Segs-Bands # 5.3 K/CMM 1.5 - 8.1 02/18/2017 [facility] HEMATOLOGY Monocytes # 0.4 K/CMM 0.0 - 0.8 02/18/2017 [facility] HEMATOLOGY Eosinophils # 0.5 K/CMM 0.0 - 0.5 02/18/2017 [facility] HEMATOLOGY Basophils # 0.1 K/CMM 0.0 - 0.2 02/18/2017 [facility] Abdomen/Pelvis wo IV contrast CT Abdomen/Pelvis wo IV contrast CT CT ABDOMEN PELVIS WITHOUT CONTRAST: HISTORY: Lumbar back pain with left lower extremity weakness. TECHNIQUE: Multislice acquisition of the abdomen and pelvis was done without IV contrast. Oral contrast was not administered. Sagittal and coronal reconstructions were also done. FINDINGS: Abdominoperineal resection and left lower quadrant colostomy are noted. The appendix is normal. The gastrointestinal tract is otherwise within normal limits. The liver, gallbladder, spleen, pancreas, kidneys and adrenal glands show no significant abnormalities. There is a 1 mm calyceal stone in the lower pole of the right kidney. There is no intraperitoneal free fluid or significant retroperitoneal abnormality. There are postoperative changes in the lower lumbar spine with posterior fusion hardware at L3 through the S1, unchanged in appearance compared to the previous lumbar spine CT on 12/27/2016. No significant paraspinal abnormalities are seen. There are no other acute osseous abnormalities. See the previous report for additional comments. IMPRESSION: No acute CT abnormalities in the abdomen or pelvis. DLAWRENCE-PC 02/18/2017 - - Read by: Yaniv Shah MD Dictated Date/time: 02/18/17 16:00 Electronically Signed by: Yaniv Shah MD 02/18/17 16:05 FINAL REPORT [facility] Hip bilat w pelvis and both lat hips DX Hip bilat w pelvis and both lat hips DX EXAM: Hip bilat w pelvis and both lat hips DX DATE: 02/18/2017 1:22 PM [employer]ATCH 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 INDICATION: - pain COMPARISON: None. IMPRESSION: No definite acute fracture or dislocation detected. Pubic rami is grossly intact. Postoperative laminectomy and lumbar fusion are present. Surgical anchors are present. : [id number] 02/18/2017 - - Read by: Jericho Bennett MD Dictated Date/time: 02/18/17 14:10 Electronically Signed by: Jericho Bennett MD 02/18/17 14:11 FINAL REPORT [facility] Spine lumbar 2 or 3 views DX Spine lumbar 2 or 3 views DX Study: Spine lumbar 2 or 3 views DX Clinical Indication: - back pain; Comparison: None FINDINGS: The AP and lateral views of the lumbar spine demonstrate no fractures, pars defects, or spondylolisthesis. The disc spaces are relatively preserved. Postoperative lumbar laminectomy and fusion are present from about L4 to S1. Abundance of stool within the colon. Postoperative surgical anchors are present. If there is further concern or neurological abnormalities on clinical exam, MRI or CT of the lumbar spine may be performed for complete assessment. IMPRESSION: 1. No definite acute fracture or pathologic subluxation detected. SL: [id number] 02/18/2017 - - Read by: Jericho Bennett MD Dictated Date/time: 02/18/17 14:08 Electronically Signed by: Jericho Bennett MD 02/18/17 14:10 FINAL REPORT [facility] URINE AND STOOL UA Urobilinogen <=1.0 mg/dL 0.1 - 1.0 01/09/2017 [facility] URINE AND STOOL UA Color Ltyellow 01/09/2017 [facility] URINE AND STOOL UA Ketones Negative mg/dL Negative mg/dL 01/09/2017 [facility] URINE AND STOOL UA Bili Negative *NA* (01/09/17 1:58 AM) Negative 01/09/2017 [facility] URINE AND STOOL UA Nitrite Negative (01/09/17 1:58 AM) Negative 01/09/2017 [facility] URINE AND STOOL UA Leuk Est Negative (01/09/17 1:58 AM) Negative 01/09/2017 [facility] URINE AND STOOL UA Blood Small *ABN* (01/09/17 1:58 AM) Negative 01/09/2017 [facility] URINE AND STOOL UA WBC null 0 - 5 01/09/2017 [facility] URINE AND STOOL UA RBC 1 /HPF 0 - 2 01/09/2017 [facility] URINE AND STOOL UA Hyal Cast 1 /LPF 0 - 2 01/09/2017 [facility] URINE AND STOOL UA Bacteria Occasional /HPF None Seen /HPF 01/09/2017 [facility] URINE AND STOOL UA Mucus Moderate /LPF None Seen /LPF 01/09/2017 [facility] URINE AND STOOL UA Sq Epi None Seen 01/09/2017 [facility] URINE AND STOOL UA Turbidity Slight *ABN* (01/09/17 1:58 AM) Clear 01/09/2017 [facility] URINE AND STOOL UA Protein 30 mg/dL Negative mg/dL 01/09/2017 [facility] URINE AND STOOL UA Glucose Negative mg/dL Negative mg/dL 01/09/2017 [facility] URINE AND STOOL UA Spec Grav 1.014 <=1.030 01/09/2017 [facility] URINE AND STOOL UA pH 6.0 5.0 - 8.0 01/09/2017 [facility] Spine coccyx DX Spine coccyx DX 1. Spine lumbar 2 or 3 views DX, 2. Spine coccyx DX 01/08/2017 9:41 PM CDT Ordering Physician: Jagruti Jett Clinical Indication: - low back pain; fall injury Comparison: Radiographs 12/27/2016 and 11/29/2016 TECHNIQUE: AP and lateral views of the lumbosacral spine and AP and lateral views of the sacrococcygeal spine were obtained . FINDINGS and IMPRESSION: No acute fracture, subluxation, or dislocation is visualized in the lumbosacral spine or sacrococcygeal spine. L5/S1 posterior bipedicular screw and yin fixation hardware is present. SL: [id number] 01/08/2017 - - Read by: Ammy Robins MD Dictated Date/time: 01/08/17 23:33 Electronically Signed by: Ammy Robins MD 01/08/17 23:36 FINAL REPORT [facility] Spine lumbar 2 or 3 views DX Spine lumbar 2 or 3 views DX 1. Spine lumbar 2 or 3 views DX, 2. Spine coccyx DX 01/08/2017 9:41 PM CDT Ordering Physician: Jagruti Jett Clinical Indication: - low back pain; fall injury Comparison: Radiographs 12/27/2016 and 11/29/2016 TECHNIQUE: AP and lateral views of the lumbosacral spine and AP and lateral views of the sacrococcygeal spine were obtained . FINDINGS and IMPRESSION: No acute fracture, subluxation, or dislocation is visualized in the lumbosacral spine or sacrococcygeal spine. L5/S1 posterior bipedicular screw and yin fixation hardware is present. SL: [id number] 01/08/2017 - - Read by: Ammy Robins MD Dictated Date/time: 01/08/17 23:33 Electronically Signed by: Ammy Robins MD 01/08/17 23:36 FINAL REPORT [facility] CHEM PANEL eGFR 96 mL/min/1.73m2 12/28/2016 Result Comment: The eGFR is calculated using the [...] from the National Kidney Disease Education Program (NKDEP) which additionally recommends that when the eGFR is used in patients with extremes of body mass index for purposes of drug dosing, the eGFR should be multiplied by the estimated BMI. [facility] CHEM PANEL Glucose Lvl 137 mg/dL 70 - 99 12/28/2016 [facility] CHEM PANEL Sodium Lvl 136 meq/L 135 - 145 12/28/2016 [facility] CHEM PANEL BUN 15 mg/dL 7 - 22 12/28/2016 [facility] CHEM PANEL Chloride Lvl 106 meq/L 95 - 109 12/28/2016 [facility] CHEM PANEL Potassium Lvl 4.2 meq/L 3.5 - 5.1 12/28/2016 [facility] CHEM PANEL Creatinine Lvl 0.90 mg/dL 0.50 - 1.40 12/28/2016 [facility] CHEM PANEL CO2 20 meq/L 24 - 32 12/28/2016 [facility] CHEM PANEL Calcium Lvl 9.5 mg/dL 8.5 - 10.5 12/28/2016 [facility] CHEM PANEL AGAP 14.2 meq/L 10.0 - 20.0 12/28/2016 [facility] HEMATOLOGY WBC 8.8 K/CMM 3.7 - 10.4 12/28/2016 [facility] HEMATOLOGY Hgb 15.2 g/dL 14.0 - 18.0 12/28/2016 [facility] HEMATOLOGY RBC 4.85 M/CMM 4.70 - 6.10 12/28/2016 [facility] MPV 7.6 fL 7.4 - 10.4 12/28/2016 [facility] Platelet 256 K/CMM 133 - 450 12/28/2016 [facility] MCH 31.3 pg 27.0 - 31.0 12/28/2016 [facility] MCHC 36.0 g/dL 32.0 - 36.0 12/28/2016 [facility] RDW 14.1 % 11.5 - 14.5 12/28/2016 [facility] HEMATOLOGY MCV 87.1 fL 80.0 - 94.0 12/28/2016 [facility] HEMATOLOGY Hct 42.3 % 42.0 - 54.0 12/28/2016 [facility] HEMATOLOGY Segs 81.9 % 45.0 - 75.0 12/28/2016 [facility] Monocytes # 0.5 K/CMM 0.0 - 0.8 12/28/2016 [facility] Lymphocytes # 1.0 K/CMM 1.0 - 5.5 12/28/2016 [facility] Eosinophils 0.1 % 0.0 - 4.0 12/28/2016 [facility] HEMATOLOGY Basophils 0.7 % 0.0 - 1.0 12/28/2016 [facility] Lymphocytes 11.4 % 20.0 - 40.0 12/28/2016 [facility] Monocytes 5.9 % 2.0 - 12.0 12/28/2016 [facility] Basophils # 0.1 K/CMM 0.0 - 0.2 12/28/2016 [facility] Segs-Bands # 7.2 K/CMM 1.5 - 8.1 12/28/2016 [facility] CHEM PANEL B/C Ratio 14 6 - 25 12/27/2016 [facility] CHEM PANEL Globulin 3.6 g/dL 2.7 - 4.2 12/27/2016 [facility] CHEM PANEL A/G Ratio 1.0 0.7 - 1.6 12/27/2016 [facility] CHEM PANEL AGAP 9.9 meq/L 10.0 - 20.0 12/27/2016 [facility] CHEM PANEL eGFR 96 mL/min/1.73m2 12/27/2016 Result Comment: The eGFR is calculated using the [...] from the National Kidney Disease Education Program (NKDEP) which additionally recommends that when the eGFR is used in patients with extremes of body mass index for purposes of drug dosing, the eGFR should be multiplied by the estimated BMI. [facility] CHEM PANEL Bili Total 0.4 mg/dL 0.2 - 1.3 12/27/2016 [facility] CHEM PANEL Potassium Lvl 3.9 meq/L 3.5 - 5.1 12/27/2016 [facility] CHEM PANEL Chloride Lvl 107 meq/L 95 - 109 12/27/2016 [facility] CHEM PANEL Albumin Lvl 3.6 g/dL 3.5 - 5.0 12/27/2016 [facility] CHEM PANEL AST 15 unit/L 0 - 37 12/27/2016 [facility] CHEM PANEL Alk Phos 64 unit/L 39 - 136 12/27/2016 [facility] CHEM PANEL ALT 25 unit/L 0 - 65 12/27/2016 [facility] CHEM PANEL Glucose Lvl 136 mg/dL 70 - 99 12/27/2016 [facility] CHEM PANEL BUN 13 mg/dL 7 - 22 12/27/2016 [facility] CHEM PANEL Sodium Lvl 137 meq/L 135 - 145 12/27/2016 [facility] CHEM PANEL Creatinine Lvl 0.90 mg/dL 0.50 - 1.40 12/27/2016 [facility] CHEM PANEL CO2 24 meq/L 24 - 32 12/27/2016 [facility] CHEM PANEL Calcium Lvl 8.4 mg/dL 8.5 - 10.5 12/27/2016 [facility] CHEM PANEL Total Protein 7.2 g/dL 6.4 - 8.4 12/27/2016 [facility] HEMATOLOGY Basophils # 0.0 K/CMM 0.0 - 0.2 12/27/2016 [facility] HEMATOLOGY Eosinophils # 0.1 K/CMM 0.0 - 0.5 12/27/2016 [facility] HEMATOLOGY Monocytes # 0.1 K/CMM 0.0 - 0.8 12/27/2016 [facility] HEMATOLOGY Lymphocytes # 0.8 K/CMM 1.0 - 5.5 12/27/2016 [facility] HEMATOLOGY Basophils 0.2 % 0.0 - 1.0 12/27/2016 [facility] HEMATOLOGY Eosinophils 1.3 % 0.0 - 4.0 12/27/2016 [facility] HEMATOLOGY Segs-Bands # 6.0 K/CMM 1.5 - 8.1 12/27/2016 [facility] HEMATOLOGY Segs 86.9 % 45.0 - 75.0 12/27/2016 [facility] Monocytes 0.8 % 2.0 - 12.0 12/27/2016 [facility] Lymphocytes 10.8 % 20.0 - 40.0 12/27/2016 [facility] PTT 26.4 s 22.9 - 35.8 12/27/2016 [facility] PT 13.3 s 12.0 - 14.7 12/27/2016 [facility] INR 0.99 0.85 - 1.17 12/27/2016 [facility] MPV 7.2 fL 7.4 - 10.4 12/27/2016 [facility] RDW 14.0 % 11.5 - 14.5 12/27/2016 [facility] MCHC 33.8 g/dL 32.0 - 36.0 12/27/2016 [facility] MCV 90.8 fL 80.0 - 94.0 12/27/2016 [facility] MCH 30.7 pg 27.0 - 31.0 12/27/2016 [facility] WBC 6.9 K/CMM 3.7 - 10.4 12/27/2016 [facility] Platelet 185 K/CMM 133 - 450 12/27/2016 [facility] Hct 41.3 % 42.0 - 54.0 12/27/2016 [facility] Hgb 14.0 g/dL 14.0 - 18.0 12/27/2016 [facility] RBC 4.55 M/CMM 4.70 - 6.10 12/27/2016 [facility] lumbar wo contrast CT Spine lumbar wo contrast CT EXAM: CT LUMBAR SPINE WITHOUT CONTRAST DATE: 12/27/2016 2:31 PM CDT INDICATION: Back pain. Numbness. COMPARISON: MRI cervical spine dated 12/27/2016. TECHNIQUE: Helical acquisition of the lumbar spine was obtained without intravenous contrast. Reformatted axial, coronal, and sagittal images were provided for review. CT radiation dose: PCQ=457.03 mGy-cm FINDINGS: The normal lumbar lordosis is preserved. No abnormalities in sagittal alignment are identified. The vertebral body and disc space heights are grossly preserved throughout the lumbar spine. Laminectomy has been performed at L5-S1, stabilized posteriorly with bilateral transpedicular screws and vertical rods at L5 and S1. There is lucency adjacent to the transpedicular screws bilaterally at S1, best characterized on series 201B image 24 and 54. The overall alignment of the hardware is unremarkable. Evaluation of the cord and cauda equina nerve roots is limited on this noncontrast exam. Postsurgical changes noted within the paraspinal soft tissues at L5 and S1. No large fluid collections are visualized within the limits of this exam. There is atherosclerotic calcification of the aorta without aneurysmal dilatation. No lymphadenopathy is visualized. The kidneys appear grossly unremarkable. An enostosis of the left iliac bone is noted. No sacral insufficiency fractures are present. Mild degenerative changes of the sacroiliac joints are identified. Degenerative changes of the lumbar spine are as follows: L1-L2: No significant degenerative change, without spinal canal or neural foraminal stenosis. L2-L3: No significant degenerative change, without spinal canal or neural foraminal stenosis. L3-L4: Mild bilateral facet arthropathy and hypertrophy of the ligamentum flavum. No spinal canal or neural foraminal stenosis is appreciated. L4-L5: Diffuse disc bulge with facet arthropathy and hypertrophy of the ligamentum flavum. Mild spinal canal stenosis as well as mild to moderate bilateral neural foraminal stenosis is identified. L5-S1: Left foraminal disc protrusion contributes to moderate to severe left neural foraminal stenosis. No significant spinal canal or right neural foraminal stenosis is present. IMPRESSION: 1. Lucency surrounding the transpedicular screws at S1 bilaterally, concerning for hardware loosening or infection. The alignment of the hardware is grossly satisfactory. 2. Left foraminal disc protrusion at L5-S1 contributes to moderate to severe left neural foraminal stenosis. 3. Diffuse disc bulge and facet arthropathy at L4-L5 contributes to mild spinal canal stenosis as well as mild to moderate bilateral neural foraminal stenosis. 4. No acute fracture of the lumbar spine or sacrum. SL: [id number] 12/27/2016 - - Read by: Gustavo Gunn MD Dictated Date/time: 12/27/16 18:50 Electronically Signed by: Gustavo Gunn MD 12/27/16 18:[address] [facility] Spine lumbar flex/ext 2 view DX Spine lumbar flex/ext 2 view DX Patient Name: FREDERIC SUMNER : 1960; Age: 56 years y/o Male MR: [id number] Study: Lateral flexion and lateral extension views of the lumbar spine dated 12/27/2016. Clinical Indication: assess for instability, lateral views - assess for instability, lateral views; Comparison: 11/29/2016 5 lumbar type vertebral bodies. Patient is status post bilateral pedicle screw fixation of L5 and S1. Mild degenerative changes are seen throughout the lumbar spine and lower thoracic region. No fracture or subluxation on these 2 views and no instability with flexion or extension identified. Surgical ties project in the lower abdomen and pelvis region. SL: [id number]- 12/27/2016 - - Read by: Gustavo Ortiz MD Dictated Date/time: 12/27/16 15:04 Electronically Signed by: Gustavo Ortiz MD 12/27/16 15:07 FINAL REPORT [facility] Spine lumbar wo contrast MRI Spine lumbar wo contrast MRI Spine lumbar wo contrast MRI Age: 56 years/o Male Clinical Indication: Severe back pain, h/o laminectomy and fusion (NOS), radiating into left lower leg - Comparison: None TECHNIQUE: Multiplanar T1, T2, STIR weighted noncontrast MRI of the lumbar spine is performed on the 1.5 Annmarie magnet. FINDINGS: ALIGNMENT AND GENERAL ASSESSMENT: There is normal alignment of the lumbar spine. The bone marrow is normal for the patient's age. There is no fracture. The anterior paraspinal soft tissues are normal. The conus medullaris ends at the L1 level. For the sake of nomenclature, five lumbar vertebrae are assumed. The posterior paraspinous soft tissues show postoperative change at the L5-S1 levels consistent with previous L5 laminectomy. Pedicle screws are present at L5-S1 from previous fusion. No interbody fusion graft is noted. DISC SPACES: T12-L1: The disc is normal. There is no central or foraminal stenosis. The facet joints are unremarkable. L1-L2: The disc is normal. There is no central or foraminal stenosis. The facet joints are unremarkable. L2-L3: The disc is normal. There is no central or foraminal stenosis. Minimal facet arthropathy bilaterally. L3-L4: The disc is normal. There is no central or foraminal stenosis. Moderate facet arthropathy. Mild thickening of the ligamentum flavum. L4-L5: Mild desiccation of the disc. No significant disc bulge. No significant stenosis of central canal. Moderate bilateral foraminal narrowing due to some posterior element hypertrophy including thickening of the ligamentum flavum and mild facet arthropathy with hypertrophy. L5-S1: Mild desiccation and narrowing of disc space. Some increased T2 signal is present within the posterior soft tissues at the operative site. There is also increased T1 and T2 signal in the pre-epidural space on the ventral aspect of the thecal sac at the L5 and S1 levels. The focus of preepidural thickening measures 6.3 mm in AP dimension and approximately 3.4 cm in cephalocaudad extent, centered at the disc space. This area remains bright on the STIR sequence. Detail of the facet joints at this level is obscured by metallic artifact. There is some protrusion of disc material into the caudal aspect of the neural foramen on the left resulting in moderate foraminal stenosis. IMPRESSION: 1. Abnormal pre-epidural thickening at the L5-S1 level produces mild ventral impression on the thecal sac. This area shows bright signal on T1 and remains bright on fat saturated T2. Findings suspicious for hemorrhage/postoperative change. Infection would be less likely differential consideration. Postcontrast imaging may be of value in further characterization. 2. Additional T2 signal seen in the soft tissues posterior to the thecal sac at the L5-S1 level. Again, these findings may simply be postoperative. Correlate with any history of recent surgery. 3. Moderate left-sided foraminal stenosis at L5-S1 and bilaterally at L4-L5 as noted. 4. Pedicle screw fusion at the L5-S1 level. SL: [email or web address] 12/27/2016 - - Read by: Leno Clark MD Dictated Date/time: 12/27/16 13:15 Electronically Signed by: Leno Clark MD 12/27/16 13:[address] [facility] URINE AND STOOL UA Urobilinogen <=1.0 mg/dL 0.1 - 1.0 11/30/2016 [facility] URINE AND STOOL UA Color Ltyellow 11/30/2016 [facility] URINE AND STOOL UA Sq Epi None Seen 11/30/2016 [facility] URINE AND STOOL UA Turbidity Clear (11/29/16 7:44 PM) Clear 11/30/2016 [facility] URINE AND STOOL UA Glucose Negative mg/dL Negative mg/dL 11/30/2016 [facility] URINE AND STOOL UA Protein Negative mg/dL Negative mg/dL 11/30/2016 [facility] URINE AND STOOL UA Ketones Negative mg/dL Negative mg/dL 11/30/2016 [facility] URINE AND STOOL UA Spec Grav 1.010 <=1.030 11/30/2016 [facility] URINE AND STOOL UA Bili Negative *NA* (11/29/16 7:44 PM) Negative 11/30/2016 [facility] URINE AND STOOL UA Blood Negative (11/29/16 7:44 PM) Negative 11/30/2016 [facility] URINE AND STOOL UA Nitrite Negative (11/29/16 7:44 PM) Negative 11/30/2016 [facility] URINE AND STOOL UA Mucus Few /LPF None Seen /LPF 11/30/2016 [facility] URINE AND STOOL UA pH 5.0 5.0 - 8.0 11/30/2016 [facility] URINE AND STOOL UA WBC null 0 - 5 11/30/2016 [facility] URINE AND STOOL UA Bacteria Occasional /HPF None Seen /HPF 11/30/2016 [facility] URINE AND STOOL UA Leuk Est Negative (11/29/16 7:44 PM) Negative 11/30/2016 [facility] Spine lumbar 2 or 3 views DX Spine lumbar 2 or 3 views DX EXAM: Lumbar spine HISTORY: Low back pain radiating to the left leg COMPARISON: Radiographs 11/13/2016 TECHNIQUE: 3 views lumbar spine FINDINGS/IMPRESSION: Mild scoliosis. Stable posterior fusion and laminectomy L5-S1. Generalized osteopenia. No compression fracture. The disc spaces are maintained. Left lower quadrant hernia repair. SL: [id number] 11/29/2016 - - Read by: Buddy Arnold MD Dictated Date/time: 11/29/16 16:59 Electronically Signed by: Buddy Arnold MD 11/29/16 17:00 FINAL REPORT [facility] Spine cervical wo contrast CT Spine cervical wo contrast CT EXAM: CT CERVICAL SPINE WITHOUT CONTRAST DATE: 11/13/2016 7:39 PM CDT INDICATION: ct [id number]-[id number] - pain after fall ADDITIONAL INFORMATION and CT DLP: 735.59 mGy-cm. COMPARISON: None. TECHNIQUE: Volumetric CT acquisition of the cervical spine without contrast. Axial, sagittal and coronal reconstructions. IV contrast: None. FINDINGS: No definite acute fracture or malalignment is identified. Prevertebral soft tissues are within normal limits. The odontoid and lateral masses are grossly intact. Interbody fusion is present of the block C5 and C6 vertebral bodies. Moderate cervical spondylosis and facet arthrosis, most pronounced at C6 and C7 with prominent anterior endplate spurring and severe bilateral foraminal stenosis. Severe bilateral C7-T1 foraminal encroachment is also present. Partial opacification of the mastoid air cells. IMPRESSION: 1. No definite acute fracture or pathologic subluxation detected. 2. Diffuse cerebral atrophy and mild chronic small vessel ischemic change. SL: [email or web address] 11/13/2016 - - Read by: Jericho Bennett MD Dictated Date/time: 11/13/16 21:17 Electronically Signed by: Jericho Bennett MD 11/13/16 21:20 FINAL REPORT [facility] Brain wo contrast CT Brain wo contrast CT EXAM: CT BRAIN WITHOUT CONTRAST DATE: 11/13/2016 7:38 PM CDT INDICATION: ct dlp-981.84 - pain after fall ADDITIONAL INFORMATION AND CT DLP: 981.84 mGy-cm. COMPARISON: None. TECHNIQUE: Routine axial CT images of the brain were obtained. IV contrast: None. FINDINGS: Marked motion artifact degrades image quality. There is disruption of the frontal bone and ethmoid air cells without significant soft tissue swelling may represent motion artifact or acute fracture. Non-contrast images of the head demonstrate no edema, hemorrhage, mass lesion or other acute intracranial abnormality. Hernandez-white matter distinction is preserved. The ventricles are normal. The basal cisterns and sulci are normal in size. Marked atherosclerotic calcification of the distal internal carotid arteries. Mild chronic inflammatory change of the paranasal sinus. Partial opacification of the mastoid air cells. IMPRESSION: 1. Moderately limited study as above. Disruption of the frontal bone and ethmoid air cells without significant soft tissue swelling may represent motion artifact or acute fracture. Repeat CT head with better sedation recommended for reevaluation. 2. No definite acute infarct or intracranial hemorrhage detected. If there is further concern for intracranial pathology or acute stroke, MRI of the brain may be performed for complete assessment. SL: [id number] 11/13/2016 - - Read by: Jericho Bennett MD Dictated Date/time: 11/13/16 21:01 Electronically Signed by: Jericho Bennett MD 11/13/16 21:05 FINAL REPORT [facility] Spine lumbar 2 or 3 views DX Spine lumbar 2 or 3 views DX EXAM: XR LUMBAR SPINE 3 VIEWS DATE: 11/13/2016 7:38 PM CDT INDICATION: Pain Post Trauma. COMPARISON: 10/24/2016. TECHNIQUE: AP, lateral, and coned lateral views of the lumbar spine were obtained. FINDINGS: There are five non rib-bearing lumbar vertebral segments. Postsurgical changes related to a laminectomy at L5 have been performed, with posterior stabilization by transpedicular screws and vertical rods noted at L5 and S1. The overall appearance of hardware is similar to prior examination. The lumbar lordosis is preserved. No abnormalities in sagittal alignment are identified. No fractures or subluxations are present. The vertebral body heights are maintained. The prevertebral soft tissues appear unremarkable. Mild degenerative osteophyte rotation is present within the lumbar spine. The visualized sacrum and sacroiliac joints are unremarkable. IMPRESSION: Postsurgical changes of the lower lumbar spine without acute fracture or malalignment. SL: [id number] 11/13/2016 - - Read by: Gustavo Gunn MD Dictated Date/time: 11/13/16 21:06 Electronically Signed by: Gustavo Gunn MD 11/13/16 21:08 FINAL REPORT [facility] Hip 2/3 views uni DX Hip 2/3 views uni DX EXAM: XR LEFT HIP, 2 VIEWS DATE: 11/13/2016 7:39 PM CDT INDICATION: Pain Post Trauma. COMPARISON: None. TECHNIQUE: Frontal and frogleg lateral views of the left hip were obtained. FINDINGS: No fracture or dislocation is identified. There are no radio-opaque foreign bodies. The acetabulum is unremarkable. The visualized sacroiliac joint and symphysis pubis are unremarkable. Postsurgical changes are noted within the lower lumbar spine. If there is further concern, follow-up radiographs or MRI is recommended for complete assessment. IMPRESSION: No acute bony abnormality of the left hip. SL: [id number] 11/13/2016 - - Read by: Gustavo Gunn MD Dictated Date/time: 11/13/16 21:04 Electronically Signed by: Gustavo Gunn MD 11/13/16 21:06 FINAL REPORT [facility] URINE AND STOOL UA Sq Epi None Seen 11/02/2016 [facility] URINE AND STOOL UA Urobilinogen <=1.0 mg/dL 0.1 - 1.0 11/02/2016 [facility] URINE AND STOOL UA Mucus Few /LPF None Seen /LPF 11/02/2016 [facility] URINE AND STOOL UA WBC null 0 - 5 11/02/2016 [facility] URINE AND STOOL UA RBC null 0 - 2 11/02/2016 [facility] URINE AND STOOL UA Leuk Est Negative (11/02/16 4:24 PM) Negative 11/02/2016 [facility] URINE AND STOOL UA Nitrite Negative (11/02/16 4:24 PM) Negative 11/02/2016 [facility] URINE AND STOOL UA Blood Negative (11/02/16 4:24 PM) Negative 11/02/2016 [facility] URINE AND STOOL UA Bili Negative *NA* (11/02/16 4:24 PM) Negative 11/02/2016 [facility] URINE AND STOOL UA Ketones Negative mg/dL Negative mg/dL 11/02/2016 [facility] URINE AND STOOL UA Protein Negative mg/dL Negative mg/dL 11/02/2016 [facility] URINE AND STOOL UA Glucose Negative mg/dL Negative mg/dL 11/02/2016 [facility] URINE AND STOOL UA Spec Grav 1.032 <=1.030 11/02/2016 [facility] URINE AND STOOL UA pH 5.0 5.0 - 8.0 11/02/2016 [facility] URINE AND STOOL UA Color Light Yellow *NA* (11/02/16 4:24 PM) Yellow 11/02/2016 [facility] URINE AND STOOL UA Turbidity Clear (11/02/16 4:24 PM) Clear 11/02/2016 [facility] MPV 6.7 fL 7.4 - 10.4 11/02/2016 [facility] Platelet 255 K/CMM 133 - 450 11/02/2016 [facility] MCV 89.5 fL 80.0 - 94.0 11/02/2016 [facility] MCH 30.1 pg 27.0 - 31.0 11/02/2016 [facility] RDW 15.0 % 11.5 - 14.5 11/02/2016 [facility] MCHC 33.6 g/dL 32.0 - 36.0 11/02/2016 [facility] Hgb 13.6 g/dL 14.0 - 18.0 11/02/2016 [facility] Hct 40.4 % 42.0 - 54.0 11/02/2016 [facility] WBC 6.8 K/CMM 3.7 - 10.4 11/02/2016 [facility] RBC 4.51 M/CMM 4.70 - 6.10 11/02/2016 [facility] Monocytes # 0.5 K/CMM 0.0 - 0.8 11/02/2016 [facility] HEMATOLOGY Segs-Bands # 4.3 K/CMM 1.5 - 8.1 11/02/2016 [facility] HEMATOLOGY Eosinophils # 0.5 K/CMM 0.0 - 0.5 11/02/2016 [facility] HEMATOLOGY Basophils # 0.0 K/CMM 0.0 - 0.2 11/02/2016 [facility] HEMATOLOGY Lymphocytes # 1.5 K/CMM 1.0 - 5.5 11/02/2016 [facility] HEMATOLOGY Lymphocytes 21.6 % 20.0 - 40.0 11/02/2016 [facility] HEMATOLOGY Segs 63.3 % 45.0 - 75.0 11/02/2016 [facility] HEMATOLOGY Basophils 0.3 % 0.0 - 1.0 11/02/2016 [facility] HEMATOLOGY Monocytes 7.8 % 2.0 - 12.0 11/02/2016 [facility] HEMATOLOGY Eosinophils 7.0 % 0.0 - 4.0 11/02/2016 [facility] CHEM PANEL Lipase Lvl 98 unit/L 73 - 393 11/02/2016 [facility] ELECTROLYTES AGAP 8.3 meq/L 10.0 - 20.0 11/02/2016 [facility] ELECTROLYTES eGFR 93 mL/min/1.73m2 11/02/2016 Result Comment: The eGFR is calculated using the [...] from the National Kidney Disease Education Program (NKDEP) which additionally recommends that when the eGFR is used in patients with extremes of body mass index for purposes of drug dosing, the eGFR should be multiplied by the estimated BMI. [facility] ELECTROLYTES B/C Ratio 15 6 - 25 11/02/2016 [facility] ELECTROLYTES Bili Total 0.5 mg/dL 0.2 - 1.3 11/02/2016 [facility] ELECTROLYTES ALT 25 unit/L 0 - 65 11/02/2016 [facility] ELECTROLYTES Total Protein 7.7 g/dL 6.4 - 8.4 11/02/2016 [facility] ELECTROLYTES Alk Phos 64 unit/L 39 - 136 11/02/2016 [facility] ELECTROLYTES AST 27 unit/L 0 - 37 11/02/2016 [facility] ELECTROLYTES Globulin 4.1 g/dL 2.7 - 4.2 11/02/2016 [facility] ELECTROLYTES A/G Ratio 0.9 0.7 - 1.6 11/02/2016 [facility] ELECTROLYTES Creatinine Lvl 0.92 mg/dL 0.50 - 1.40 11/02/2016 [facility] ELECTROLYTES Sodium Lvl 135 meq/L 135 - 145 11/02/2016 [facility] ELECTROLYTES Chloride Lvl 105 meq/L 95 - 109 11/02/2016 [facility] ELECTROLYTES Albumin Lvl 3.6 g/dL 3.5 - 5.0 11/02/2016 [facility] ELECTROLYTES CO2 26 meq/L 24 - 32 11/02/2016 [facility] ELECTROLYTES Potassium Lvl 4.3 meq/L 3.5 - 5.1 11/02/2016 [facility] ELECTROLYTES Calcium Lvl 8.8 mg/dL 8.5 - 10.5 11/02/2016 [facility] ELECTROLYTES BUN 14 mg/dL 7 - 22 11/02/2016 [facility] ELECTROLYTES Glucose Lvl 119 mg/dL 70 - 99 11/02/2016 [facility] Abdomen/Pelvis w IV contrast CT Abdomen/Pelvis w IV contrast CT Patient Name: FREDERIC SUMNER : 1960; Age: 56 years y/o Male MR: [id number] * I. COMPUTED TOMOGRAPHY SCAN OF THE ABDOMEN with contrast. * II. COMPUTED TOMOGRAPHY SCAN OF THE PELVIS with contrast HISTORY: Acute generalized nonspecific abdominal pain. The patient had a colostomy hernia repair approximately 2 months ago. Concern for small bowel obstruction. COMPARISON: 07/28/2016. TECHNIQUE: I. COMPUTED TOMOGRAPHY SCAN OF THE ABDOMEN with contrast: Helical CT images were obtained on a multidetector computed tomography scanner from the domes the diaphragms to the iliac crests following the intravenous administration of nonionic iodinated contrast. Oral contrast was not provided. II. COMPUTED TOMOGRAPHY SCAN OF THE PELVIS with contrast: Helical CT images were obtained on a multidetector computed tomography scanner from the iliac crests to the pubic symphysis following the intravenous administration of nonionic iodinated contrast. Oral contrast was not provided. Coronal and sagittal reconstructions were obtained. CT radiation dose DLP: 1701 mGy-cm IMPRESSION: 1. There is a left lower quadrant colostomy. There is mild redundancy of the colon in the abdominal wall. There is no evidence of obstruction. 2. There are postoperative change involving the left abdominal wall including the region of the colostomy consistent with a hernia repair. 3. There is no evidence of bowel obstruction or ileus. A normal appendix is visualized. 4. Evaluation of the gastrointestinal structures is limited due to lack of oral contrast. 5. There is been improvement in the appearance of the left-sided abdominal wall. There is no evidence of abscess or residual fluid collection. 6. No evidence of an acute intra-abdominal process. There is no free intraperitoneal gas, intra-abdominal abscess, ascites, or other fluid collection. Again, there is no evidence of bowel obstruction. 7. Mild diffuse fatty change involving the liver. The liver is otherwise unremarkable. No focal lesions are seen. 8. The spleen, pancreas, and adrenal glands are normal in appearance. 9. The kidneys are normal in size and show good, symmetrical excretion without hydronephrosis. 10. There is mild adenopathy adjacent to the lower thoracic aorta. There is a 2.3 x 0.8 cm node just lateral to the lower thoracic aorta best seen on images 1 through 4. There are a few other adjacent subcentimeter lymph nodes. These are unchanged and are of unknown significance. 11. No mass or adenopathy is seen within the abdomen or pelvis. 12. Mild atherosclerotic change involving the abdominal aorta. There is no aneurysm. 13. The visualized lung bases are clear. There are no pleural effusions. There is mild chronic elevation of the right hemidiaphragm. 14. The heart size is at the upper limits of normal. There is no pericardial effusion. 14. Postoperative changes at L5-S1. There are posterior rods and intrapedicular screws. A laminectomy has been performed at L5. 15. The regional skeleton is otherwise unremarkable. SL: [id number] 11/02/2016 - - Read by: Harrison Gomez MD Dictated Date/time: 11/02/16 16:43 Electronically Signed by: Harrison Gomez MD 11/02/16 16:[address] [facility] Spine lumbar 2 or 3 views DX Spine lumbar 2 or 3 views DX PROCEDURE: Lumbar spine AP and lateral radiographs. Total 4 views. INDICATION: Lumbar region pain. Evaluation for fracture COMPARISON: Lumbar spine AP and lateral radiographs dated 07/27/2016. CT abdomen pelvis dated 07/28/2016. FINDINGS: Patient has undergone posterior laminectomy at L5 level. 5 nonrib- bearing lumbar-type vertebra are present. Stable bilateral transpedicular screws at L5-S1 levels with posterior Beckham rods. No spondylolisthesis identified. Multilevel small endplate osteophytes. No vacuum disc or posterior endplate osteophytes. No acute bony abnormality or significant change since prior studies. Densities overlie the left lower quadrant compatible with prior mesh ventral wall hernia repair. Bowel gas pattern and soft tissue outlines appear unremarkable. No vertebral body compression deformities. No acute bony fracture identified. IMPRESSION: 1. No acute abnormality identified. 2. Stable degenerative and postsurgical changes. SL: [id number] 10/24/2016 - - Read by: Tad Fleming MD Dictated Date/time: 10/24/16 17:03 Electronically Signed by: Tad Fleming MD 10/24/16 17:05 FINAL REPORT [facility] URINE AND STOOL UA Color Ltyellow 07/28/2016 [facility] URINE AND STOOL UA Urobilinogen <=1.0 mg/dL 0.1 - 1.0 07/28/2016 [facility] URINE AND STOOL UA Mucus Few /LPF None Seen /LPF 07/28/2016 [facility] URINE AND STOOL UA RBC 3 /HPF 0 - 2 07/28/2016 [facility] URINE AND STOOL UA WBC 1 /HPF 0 - 5 07/28/2016 [facility] URINE AND STOOL UA Sq Epi Occasional /LPF Few /LPF 07/28/2016 [facility] URINE AND STOOL UA Leuk Est Negative (07/28/16 1:00 AM) Negative 07/28/2016 [facility] URINE AND STOOL UA Glucose Negative mg/dL Negative mg/dL 07/28/2016 [facility] URINE AND STOOL UA Protein Negative mg/dL Negative mg/dL 07/28/2016 [facility] URINE AND STOOL UA pH 6.0 5.0 - 8.0 07/28/2016 [facility] URINE AND STOOL UA Nitrite Negative (07/28/16 1:00 AM) Negative 07/28/2016 [facility] URINE AND STOOL UA Blood Negative (07/28/16 1:00 AM) Negative 07/28/2016 [facility] URINE AND STOOL UA Bili Negative *NA* (07/28/16 1:00 AM) Negative 07/28/2016 [facility] URINE AND STOOL UA Ketones Negative mg/dL Negative mg/dL 07/28/2016 [facility] URINE AND STOOL UA Turbidity Clear (07/28/16 1:00 AM) Clear 07/28/2016 [facility] URINE AND STOOL UA Spec Grav 1.018 <=1.030 07/28/2016 [facility] CHEM PANEL eGFR 85 mL/min/1.73m2 07/28/2016 Result Comment: The eGFR is calculated using the [...] from the National Kidney Disease Education Program (NKDEP) which additionally recommends that when the eGFR is used in patients with extremes of body mass index for purposes of drug dosing, the eGFR should be multiplied by the estimated BMI. [facility] CHEM PANEL Bili Total 0.3 mg/dL 0.2 - 1.3 07/28/2016 [facility] CHEM PANEL ALT 25 unit/L 0 - 65 07/28/2016 [facility] CHEM PANEL Total Protein 8.2 g/dL 6.4 - 8.4 07/28/2016 [facility] CHEM PANEL AST 17 unit/L 0 - 37 07/28/2016 [facility] CHEM PANEL Albumin Lvl 4.0 g/dL 3.5 - 5.0 07/28/2016 [facility] CHEM PANEL CO2 28 meq/L 24 - 32 07/28/2016 [facility] CHEM PANEL Chloride Lvl 103 meq/L 95 - 109 07/28/2016 [facility] CHEM PANEL Calcium Lvl 9.4 mg/dL 8.5 - 10.5 07/28/2016 [facility] CHEM PANEL Sodium Lvl 140 meq/L 135 - 145 07/28/2016 [facility] CHEM PANEL BUN 15 mg/dL 7 - 22 07/28/2016 [facility] CHEM PANEL Creatinine Lvl 1.00 mg/dL 0.50 - 1.40 07/28/2016 [facility] CHEM PANEL Glucose Lvl 86 mg/dL 70 - 99 07/28/2016 [facility] CHEM PANEL Potassium Lvl 3.7 meq/L 3.5 - 5.1 07/28/2016 [facility] CHEM PANEL Alk Phos 88 unit/L 39 - 136 07/28/2016 [facility] CHEM PANEL A/G Ratio 1.0 0.7 - 1.6 07/28/2016 [facility] CHEM PANEL AGAP 12.7 meq/L 10.0 - 20.0 07/28/2016 [facility] CHEM PANEL B/C Ratio 15 6 - 25 07/28/2016 [facility] CHEM PANEL Globulin 4.2 g/dL 2.7 - 4.2 07/28/2016 [facility] CHEM PANEL Lipase Lvl 91 unit/L 73 - 393 07/28/2016 [facility] HEMATOLOGY Segs 66.5 % 45.0 - 75.0 07/28/2016 [facility] HEMATOLOGY Lymphocytes 22.4 % 20.0 - 40.0 07/28/2016 [facility] HEMATOLOGY Eosinophils 4.0 % 0.0 - 4.0 07/28/2016 [facility] HEMATOLOGY Lymphocytes # 1.5 K/CMM 1.0 - 5.5 07/28/2016 [facility] HEMATOLOGY Monocytes # 0.4 K/CMM 0.0 - 0.8 07/28/2016 [facility] HEMATOLOGY Monocytes 6.2 % 2.0 - 12.0 07/28/2016 [facility] HEMATOLOGY Eosinophils # 0.3 K/CMM 0.0 - 0.5 07/28/2016 [facility] HEMATOLOGY Basophils 0.9 % 0.0 - 1.0 07/28/2016 [facility] HEMATOLOGY Segs-Bands # 4.6 K/CMM 1.5 - 8.1 07/28/2016 [facility] Basophils # 0.1 K/CMM 0.0 - 0.2 07/28/2016 [facility] HEMATOLOGY MPV 8.3 fL 7.4 - 10.4 07/28/2016 [facility] HEMATOLOGY MCV 84.1 fL 80.0 - 94.0 07/28/2016 [facility] HEMATOLOGY Hgb 13.5 g/dL 14.0 - 18.0 07/28/2016 [facility] HEMATOLOGY Hct 39.9 % 42.0 - 54.0 07/28/2016 [facility] WBC 6.9 K/CMM 3.7 - 10.4 07/28/2016 [facility] HEMATOLOGY RBC 4.75 M/CMM 4.70 - 6.10 07/28/2016 [facility] HEMATOLOGY Platelet 225 K/CMM 133 - 450 07/28/2016 [facility] MCH 28.4 pg 27.0 - 31.0 07/28/2016 [facility] MCHC 33.8 g/dL 32.0 - 36.0 07/28/2016 [facility] RDW 14.9 % 11.5 - 14.5 07/28/2016 [facility] ED Abdomen/Pelvis IV contrast only CT ED Abdomen/Pelvis IV contrast only CT Study: ED Abdomen/Pelvis IV contrast only CT Clinical Indication: Abdominal pain, acute---Pt reports abdominal pain that started yesterday s/p falling. Pt has hx of hernia surgery. - abdominal pain---CT DLP; 2021.32mGycm, --100CC OMNI 300 Comparison: None TECHNIQUE: Multiple axial CT images of the abdomen and pelvis were acquired following the administration of intravenous contrast. Sagittal and coronal reformatted images were performed. CT Radiation Dose DLP 2021.32 mGy-cm FINDINGS: The visualized lung bases are clear bilaterally. The liver, gallbladder, pancreas, spleen, kidneys, and adrenal glands have a normal CT appearance. No intrahepatic or extrahepatic biliary duct dilatation is seen. Urinary bladder and prostate are unremarkable. Postoperative changes of prior abdominoperineal resection are seen. There is a lobulated, hypodense, rim-enhancing fluid collection along the superior aspect of the stoma in the left lower quadrant measuring 1.3 x 6.5 x 2.3 cm. The remaining visualized hollow viscera and appendix are unremarkable. No free air or pathologic adenopathy is seen. Mild arterial calcifications are noted. Postoperative changes of fusion and laminectomy in the lower lumbar spine are seen. Postoperative changes of prior ventral hernia repair in the left lower quadrant are seen. IMPRESSION: 1. Postoperative changes of prior abdominoperineal resection. 2. Rim-enhancing 1.3 x 6.5 x 2.3 cm fluid collection along the superior aspect of the stoma in the left lower quadrant. SL: DANNY 07/28/2016 - - Read by: Jacek Noel MD Dictated Date/time: 07/28/16 01:42 Electronically Signed by: Jacek Noel MD 07/28/16 01:48 FINAL REPORT [facility] Spine lumbar 2 or 3 views DX Spine lumbar 2 or 3 views DX EXAM: XR LUMBAR SPINE 3 VIEWS DATE: 07/27/2016 11:26 PM CDT INDICATION: Back Pain. Fall COMPARISON: 04/28/2016. TECHNIQUE: AP, lateral, and coned lateral views of the lumbar spine were obtained. FINDINGS: There are five non rib-bearing lumbar vertebral segments. The lumbar lordosis is preserved. No abnormalities in sagittal alignment are identified. No fractures or subluxations are present. The vertebral body heights are maintained. The prevertebral soft tissues appear unremarkable. Laminectomy has been performed at L5-S1 with paired transpedicular screws stabilized by vertical rods. The visualized sacrum and sacroiliac joints are unremarkable. IMPRESSION: No acute fracture or malalignment of the lumbar spine. SL: [id number] 07/27/2016 - - Read by: Gustavo Gunn MD Dictated Date/time: 07/27/16 23:37 Electronically Signed by: Gustavo Gunn MD 07/27/16 23:39 FINAL REPORT [facility] URINE AND STOOL UA Urobilinogen <=1.0 mg/dL 0.1 - 1.0 04/28/2016 [facility] URINE AND STOOL UA Glucose Negative mg/dL Negative mg/dL 04/28/2016 [facility] URINE AND STOOL UA Sq Epi None Seen 04/28/2016 [facility] URINE AND STOOL UA Mucus Few /LPF None Seen /LPF 04/28/2016 [facility] URINE AND STOOL UA Blood Small *ABN* (04/28/16 2:02 PM) Negative 04/28/2016 [facility] URINE AND STOOL UA Nitrite Negative (04/28/16 2:02 PM) Negative 04/28/2016 [facility] URINE AND STOOL UA Ketones Negative mg/dL Negative mg/dL 04/28/2016 [facility] URINE AND STOOL UA Bili Negative *NA* (04/28/16 2:02 PM) Negative 04/28/2016 [facility] URINE AND STOOL UA WBC null 0 - 5 04/28/2016 [facility] URINE AND STOOL UA RBC 2 /HPF 0 - 2 04/28/2016 [facility] URINE AND STOOL UA Leuk Est Negative (04/28/16 2:02 PM) Negative 04/28/2016 [facility] URINE AND STOOL UA Protein Negative mg/dL Negative mg/dL 04/28/2016 [facility] URINE AND STOOL UA Turbidity Clear (04/28/16 2:02 PM) Clear 04/28/2016 [facility] URINE AND STOOL UA Spec Grav 1.027 <=1.030 04/28/2016 [facility] URINE AND STOOL UA pH 5.0 5.0 - 8.0 04/28/2016 [facility] URINE AND STOOL UA Color Yellow *NA* (04/28/16 2:02 PM) Yellow 04/28/2016 [facility] Spine lumbar series DX Spine lumbar series DX Patient Name: FREDERIC SUMNER : 1960; Age: 55 years y/o Male MR: [id number] Study: Spine lumbar series DX 04/28/2016 1:25 PM 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 Ordering Physician: Clinical Indication: Backache; Comparison: None Lumbar spine 5 views Prior L5 laminectomy and pedicle screw and yin fusion L5-S1. No bony fracture, subluxation or acute abnormality. No evidence for spondylolisthesis. No hardware fracture appreciated. Otherwise normal vertebral height and alignment. Disc spaces are otherwise well-maintained. Sacroiliac joints intact. IMPRESSION: Prior L5 laminectomy and L5-S1 fusion. No other acute findings.. SL: [id number] 04/28/2016 - - Read by: Selwyn Holguin MD Dictated Date/time: 04/28/16 14:59 Electronically Signed by: Selwyn Holguin MD 04/28/16 15:01 FINAL REPORT [facility] Vital Signs Vital Sign Value Date Comments Source Heart Rate 87 05/13/2018 [facility] Respitory Rate 16 05/13/2018 [facility] Systolic (mm Hg) 165 05/13/2018 [facility] Diastolic (mm Hg) 96 05/13/2018 [facility] Systolic (mm Hg) 160 05/13/2018 [facility] Diastolic (mm Hg) 91 05/13/2018 [facility] Respitory Rate 18 05/13/2018 [facility] Heart Rate 96 05/13/2018 [facility] Temperature Oral (F) 97.6 F 05/13/2018 [facility] Height 167.64 cm 05/13/2018 [facility] Weight 97.727 05/13/2018 [facility] BMI Calculated 34.77 05/13/2018 [facility] Systolic (mm Hg) 139 10/29/2017 [facility] Diastolic (mm Hg) 74 10/29/2017 [facility] Respitory Rate 18 10/29/2017 [facility] Heart Rate 82 10/29/2017 [facility] Temperature Oral (F) 98.6 F 10/29/2017 [facility] Respitory Rate 18 10/29/2017 [facility] Systolic (mm Hg) 124 10/29/2017 [facility] Diastolic (mm Hg) 78 10/29/2017 [facility] Temperature Oral (F) 98.3 F 10/29/2017 [facility] Heart Rate 77 10/29/2017 [facility] Respitory Rate 18 10/29/2017 [facility] Systolic (mm Hg) 126 10/29/2017 [facility] Diastolic (mm Hg) 76 10/29/2017 [facility] Temperature Oral (F) 98 F 10/29/2017 [facility] Heart Rate 69 10/29/2017 [facility] BMI Calculated 34.53 10/27/2017 [facility] Weight 100 10/27/2017 [facility] Height 170.18 cm 10/27/2017 [facility] BMI Calculated 41.1 10/27/2017 [facility] Weight 95.455 10/27/2017 [facility] Height 152.4 cm 10/27/2017 [facility] Height 170.18 cm 10/26/2017 [facility] Weight 100 10/26/2017 [facility] BMI Calculated 34.53 10/26/2017 [facility] Height 167.64 cm 08/15/2017 [facility] BMI Calculated 36.31 08/15/2017 [facility] Weight 102.045 08/15/2017 [facility] Respitory Rate 17 08/15/2017 [facility] Temperature Oral (F) 98.5 F 08/15/2017 [facility] Systolic (mm Hg) 142 08/15/2017 [facility] Diastolic (mm Hg) 86 08/15/2017 [facility] Heart Rate 86 08/15/2017 [facility] Systolic (mm Hg) 160 08/03/2017 [facility] Diastolic (mm Hg) 100 08/03/2017 [facility] Height 167.64 cm 08/03/2017 [facility] Temperature Oral (F) 98.5 F 08/03/2017 [facility] Respitory Rate 17 08/03/2017 [facility] Heart Rate 80 08/03/2017 [facility] Systolic (mm Hg) 165 08/03/2017 [facility] Diastolic (mm Hg) 105 08/03/2017 [facility] Systolic (mm Hg) 110 07/05/2017 [facility] Diastolic (mm Hg) 78 07/05/2017 [facility] Heart Rate 78 07/05/2017 [facility] Respitory Rate 20 07/05/2017 [facility] Systolic (mm Hg) 108 07/05/2017 [facility] Diastolic (mm Hg) 73 07/05/2017 [facility] Respitory Rate 20 07/05/2017 [facility] Height 170.18 cm 07/05/2017 [facility] Weight 95.045 07/05/2017 [facility] BMI Calculated 32.82 07/05/2017 [facility] Heart Rate 79 07/05/2017 [facility] Systolic (mm Hg) 133 07/05/2017 [facility] Diastolic (mm Hg) 87 07/05/2017 [facility] Respitory Rate 16 07/05/2017 [facility] Respitory Rate 20 07/05/2017 [facility] Heart Rate 71 07/05/2017 [facility] Systolic (mm Hg) 149 07/05/2017 [facility] Diastolic (mm Hg) 89 07/05/2017 [facility] Temperature Oral (F) 98.2 F 07/05/2017 [facility] BMI Calculated 34.29 07/04/2017 [facility] Weight 96.364 07/04/2017 [facility] Heart Rate 72 07/04/2017 [facility] Systolic (mm Hg) 147 07/04/2017 [facility] Diastolic (mm Hg) 93 07/04/2017 [facility] Temperature Oral (F) 98.1 F 07/04/2017 [facility] Respitory Rate 20 07/04/2017 [facility] Height 167.64 cm 07/04/2017 [facility] Temperature Oral (F) 98.6 F 06/23/2017 [facility] Systolic (mm Hg) 158 06/23/2017 [facility] Diastolic (mm Hg) 95 06/23/2017 [facility] Heart Rate 102 06/23/2017 [facility] Weight 83.864 06/22/2017 [facility] Temperature Oral (F) 98.8 F 06/22/2017 [facility] Respitory Rate 18 06/22/2017 [facility] Height 172.72 cm 06/22/2017 [facility] BMI Calculated 28.11 06/22/2017 [facility] Systolic (mm Hg) 160 06/22/2017 [facility] Diastolic (mm Hg) 91 06/22/2017 [facility] Heart Rate 113 06/22/2017 [facility] Heart Rate 88 06/12/2017 [facility] Temperature Oral (F) 98 F 06/12/2017 [facility] Systolic (mm Hg) 149 06/12/2017 [facility] Diastolic (mm Hg) 79 06/12/2017 [facility] Respitory Rate 18 06/12/2017 [facility] Weight 92.773 06/11/2017 [facility] BMI Calculated 28.53 06/11/2017 [facility] Systolic (mm Hg) 155 06/11/2017 [facility] Diastolic (mm Hg) 92 06/11/2017 [facility] Respitory Rate 18 06/11/2017 [facility] Heart Rate 90 06/11/2017 [facility] Height 180.34 cm 06/11/2017 [facility] Temperature Oral (F) 98.9 F 06/11/2017 [facility] Weight 100 05/08/2017 [facility] BMI Calculated 30.75 05/08/2017 [facility] Height 180.34 cm 05/08/2017 [facility] Temperature Oral (F) 98.4 F 05/08/2017 [facility] Systolic (mm Hg) 169 05/08/2017 [facility] Diastolic (mm Hg) 95 05/08/2017 [facility] Heart Rate 87 05/08/2017 [facility] Respitory Rate 18 05/08/2017 [facility] Heart Rate 78 04/28/2017 [facility] Temperature Oral (F) 98.1 F 04/28/2017 [facility] Systolic (mm Hg) 145 04/28/2017 [facility] Diastolic (mm Hg) 78 04/28/2017 [facility] Respitory Rate 17 04/28/2017 [facility] Heart Rate 81 04/28/2017 [facility] Systolic (mm Hg) 157 04/28/2017 [facility] Diastolic (mm Hg) 89 04/28/2017 [facility] Respitory Rate 18 04/28/2017 [facility] Temperature Oral (F) 98.4 F 04/28/2017 [facility] Weight 95.909 04/27/2017 [facility] Height 154.94 cm 04/27/2017 [facility] BMI Calculated 39.95 04/27/2017 [facility] Heart Rate 81 04/27/2017 [facility] Respitory Rate 18 04/27/2017 [facility] Temperature Oral (F) 98.4 F 04/27/2017 [facility] Systolic (mm Hg) 156 04/27/2017 [facility] Diastolic (mm Hg) 89 04/27/2017 [facility] Temperature Oral (F) 98.3 F 03/26/2017 [facility] Respitory Rate 18 03/26/2017 [facility] Heart Rate 68 03/26/2017 [facility] Systolic (mm Hg) 128 03/26/2017 [facility] Diastolic (mm Hg) 70 03/26/2017 [facility] Systolic (mm Hg) 131 03/26/2017 [facility] Diastolic (mm Hg) 71 03/26/2017 [facility] Heart Rate 72 03/26/2017 [facility] Temperature Oral (F) 98.5 F 03/26/2017 [facility] Respitory Rate 16 03/26/2017 [facility] Height 172.72 cm 03/26/2017 [facility] Weight 95.909 03/26/2017 [facility] BMI Calculated 32.15 03/26/2017 [facility] Heart Rate 77 02/18/2017 [facility] Respitory Rate 16 02/18/2017 [facility] Systolic (mm Hg) 125 02/18/2017 [facility] Diastolic (mm Hg) 77 02/18/2017 [facility] Respitory Rate 17 02/18/2017 [facility] Heart Rate 82 02/18/2017 [facility] Systolic (mm Hg) 131 02/18/2017 [facility] Diastolic (mm Hg) 91 02/18/2017 [facility] Height 170.18 cm 02/18/2017 [facility] Weight 95.455 02/18/2017 [facility] BMI Calculated 32.96 02/18/2017 [facility] Heart Rate 96 02/18/2017 [facility] Systolic (mm Hg) 126 02/18/2017 [facility] Diastolic (mm Hg) 80 02/18/2017 [facility] Respitory Rate 18 02/18/2017 [facility] Temperature Oral (F) 98.6 F 02/18/2017 [facility] Systolic (mm Hg) 150 01/09/2017 [facility] Diastolic (mm Hg) 86 01/09/2017 [facility] Temperature Oral (F) 98.1 F 01/09/2017 [facility] Respitory Rate 18 01/09/2017 [facility] Heart Rate 88 01/09/2017 [facility] Weight 95.455 01/09/2017 [facility] Heart Rate 84 01/09/2017 [facility] Respitory Rate 18 01/09/2017 [facility] Systolic (mm Hg) 153 01/09/2017 [facility] Diastolic (mm Hg) 107 01/09/2017 [facility] Temperature Oral (F) 98.2 F 01/09/2017 [facility] Height 170.18 cm 01/09/2017 [facility] BMI Calculated 32.96 01/09/2017 [facility] Systolic (mm Hg) 130 12/28/2016 [facility] Diastolic (mm Hg) 83 12/28/2016 [facility] Respitory Rate 18 12/28/2016 [facility] Heart Rate 70 12/28/2016 [facility] Temperature Oral (F) 97.6 F 12/28/2016 [facility] Systolic (mm Hg) 160 12/28/2016 [facility] Diastolic (mm Hg) 84 12/28/2016 [facility] Temperature Oral (F) 97.8 F 12/28/2016 [facility] Respitory Rate 18 12/28/2016 [facility] Heart Rate 70 12/28/2016 [facility] Systolic (mm Hg) 136 12/28/2016 [facility] Diastolic (mm Hg) 84 12/28/2016 [facility] Temperature Oral (F) 98.8 F 12/28/2016 [facility] Heart Rate 103 12/28/2016 [facility] Respitory Rate 20 12/28/2016 [facility] Weight 94.091 12/27/2016 [facility] BMI Calculated 31.54 12/27/2016 [facility] Height 172.72 cm 12/27/2016 [facility] Respitory Rate 18 11/30/2016 [facility] Heart Rate 85 11/30/2016 [facility] Systolic (mm Hg) 132 11/30/2016 [facility] Diastolic (mm Hg) 88 11/30/2016 [facility] Temperature Oral (F) 98.3 F 11/30/2016 [facility] BMI Calculated 33.12 11/29/2016 [facility] Height 170.18 cm 11/29/2016 [facility] Weight 95.909 11/29/2016 [facility] Systolic (mm Hg) 141 11/29/2016 [facility] Diastolic (mm Hg) 91 11/29/2016 [facility] Heart Rate 94 11/29/2016 [facility] Respitory Rate 17 11/29/2016 [facility] Temperature Oral (F) 98.1 F 11/29/2016 [facility] Temperature Oral (F) 97.5 F 11/14/2016 [facility] Heart Rate 48 11/14/2016 [facility] Respitory Rate 16 11/14/2016 [facility] Systolic (mm Hg) 155 11/14/2016 [facility] Diastolic (mm Hg) 84 11/14/2016 [facility] BMI Calculated 31.39 11/13/2016 [facility] Height 170.18 cm 11/13/2016 [facility] Respitory Rate 18 11/13/2016 [facility] Heart Rate 67 11/13/2016 [facility] Systolic (mm Hg) 148 11/13/2016 [facility] Diastolic (mm Hg) 97 11/13/2016 [facility] Weight 90.909 11/13/2016 [facility] Temperature Oral (F) 98.7 F 11/13/2016 [facility] Respitory Rate 17 11/02/2016 [facility] Systolic (mm Hg) 129 11/02/2016 [facility] Diastolic (mm Hg) 78 11/02/2016 [facility] Heart Rate 84 11/02/2016 [facility] Temperature Oral (F) 98 F 11/02/2016 [facility] Weight 93.182 11/02/2016 [facility] BMI Calculated 33.16 11/02/2016 [facility] Height 167.64 cm 11/02/2016 [facility] Heart Rate 79 11/02/2016 [facility] Respitory Rate 20 11/02/2016 [facility] Systolic (mm Hg) 142 11/02/2016 [facility] Diastolic (mm Hg) 82 11/02/2016 [facility] Temperature Oral (F) 97.9 F 11/02/2016 [facility] Heart Rate 77 10/25/2016 [facility] Respitory Rate 18 10/25/2016 [facility] Temperature Oral (F) 98 F 10/25/2016 [facility] Systolic (mm Hg) 138 10/25/2016 [facility] Diastolic (mm Hg) 98 10/25/2016 [facility] BMI Calculated 32.17 10/24/2016 [facility] Weight 93.182 10/24/2016 [facility] Height 170.18 cm 10/24/2016 [facility] Temperature Oral (F) 98.0 F 10/24/2016 [facility] Respitory Rate 20 10/24/2016 [facility] Heart Rate 95 10/24/2016 [facility] Systolic (mm Hg) 127 10/24/2016 [facility] Diastolic (mm Hg) 64 10/24/2016 [facility] Systolic (mm Hg) 163 07/28/2016 [facility] Diastolic (mm Hg) 94 07/28/2016 [facility] Heart Rate 71 07/28/2016 [facility] Temperature Oral (F) 98.1 F 07/28/2016 [facility] Respitory Rate 18 07/28/2016 [facility] Heart Rate 66 07/28/2016 [facility] Systolic (mm Hg) 145 07/28/2016 [facility] Diastolic (mm Hg) 89 07/28/2016 [facility] Respitory Rate 19 07/28/2016 [facility] Weight 86.364 07/28/2016 [facility] Temperature Oral (F) 98.8 F 07/28/2016 [facility] Respitory Rate 18 07/28/2016 [facility] Height 172.72 cm 07/28/2016 [facility] Heart Rate 70 07/28/2016 [facility] BMI Calculated 28.95 07/28/2016 [facility] Systolic (mm Hg) 157 07/28/2016 [facility] Diastolic (mm Hg) 94 07/28/2016 [facility] Systolic (mm Hg) 133 04/28/2016 [facility] Diastolic (mm Hg) 89 04/28/2016 [facility] Heart Rate 81 04/28/2016 [facility] Respitory Rate 18 04/28/2016 [facility] Temperature Oral (F) 98.0 F 04/28/2016 [facility] Height 170.18 cm 04/28/2016 [facility] Respitory Rate 16 04/28/2016 [facility] Temperature Oral (F) 97.9 F 04/28/2016 [facility] Weight 93.182 04/28/2016 [facility] BMI Calculated 32.17 04/28/2016 [facility] Systolic (mm Hg) 150 04/28/2016 [facility] Diastolic (mm Hg) 90 04/28/2016 [facility] Heart Rate 88 04/28/2016 [facility] Encounters Location Location Details Encounter Type Encounter Number Reason For Visit Attending Provider ADM Date DC Date Status Source [facility] Emergency [id number] Oly Wilkerson 04/28/2016 04/28/2016 [facility] Emergency [id number] Eli Bennett 07/28/2016 07/28/2016 [facility] Emergency [id number] Francisco Donahuesuf 10/24/2016 10/25/2016 [facility] Emergency [id number] Nola Gallo 11/02/2016 11/02/2016 [facility] Emergency [id number] Mimi Hines 11/13/2016 11/14/2016 [facility] Emergency [id number] Win Sanders 11/29/2016 11/30/2016 [facility] Observation [id number] Tad Sarkar 12/27/2016 12/28/2016 [facility] Emergency [id number] Shalini Wyatt 01/09/2017 01/09/2017 [facility] Ambulatory Pre-Reg [id number] 02/08/2017 02/08/2017 [facility] [id number] Quinton Gunn 02/18/2017 02/18/2017 [facility] Emergency [id number] Shalini Smallel 03/26/2017 03/26/2017 [facility] Emergency [id number] Tanya Peguerofrancisco javier 04/27/2017 04/28/2017 [facility] Emergency [id number] Matteo Bishop 05/08/2017 05/08/2017 [facility] Departed Emergency Room [id number] DAMI HUMPHREYS MD 05/23/2017 05/23/2017 [facility] Departed Emergency Room [id number] [facility] 06/07/2017 06/07/2017 [facility] Emergency [id number] Edenilson Sanchez 06/11/2017 06/12/2017 [facility] Departed Emergency Room [id number] DONALD WOOLSTOCK 06/17/2017 06/17/2017 [facility] Emergency [id number] Shree Santoro 06/22/2017 06/23/2017 [facility] Departed Emergency Room [id number] JELANI EASTMAN MD 07/04/2017 07/04/2017 [facility] Emergency [id number] Jericho Romero 07/04/2017 07/05/2017 [facility] Emergency [id number] Torey Raza 07/05/2017 07/05/2017 [facility] Outpatient [id number] ROBBIENIRMALA MOSQUEDA BARBARARIA 07/20/2017 [facility] Outpatient [id number] ROBBIENIRMALA MOSQUEDA BARBARARIA 08/03/2017 [facility] Outpatient [id number] Robbienirmala Mosqueda Barbararia 08/03/2017 08/04/2017 [facility] Outpatient [id number] ROBBIENIRMALA MOSQUEDA KARENLAVARRIA 08/15/2017 [facility] Outpatient [id number] Robbie Mosqueda Mónicavarria 08/15/2017 08/16/2017 [facility] Inpatient [id number] Maurizio Bennett 10/26/2017 10/29/2017 [facility] Emergency [id number] Lana Bennettu 05/13/2018 05/13/2018 [facility] Outpatient [id number] JOSEPH NELSON 05/20/2018 Active [facility] Procedures Procedure Code Date Perfomer Comments Source Depression screening 844861335 03/26/2017 [facility] Fall risk assessment [id number] 03/26/2017 [facility] Depression screening 628611410 03/26/2017 [facility] Fall risk assessment 725423011 03/26/2017 [facility] Depression screening 543149015 03/26/2017 [facility] Fall risk assessment 586323829 03/26/2017 [facility] Depression screening 281011810 03/26/2017 [facility] Fall risk assessment 040039714 03/26/2017 [facility] Eye examination 59376850 03/26/2016 [facility] Eye examination [id number] 03/26/2016 [facility] Eye examination 90714218 03/26/2016 [facility] Eye examination 16699382 03/26/2016 [place] Screening colonoscopy 878542495 03/26/2013 [facility] Screening colonoscopy 268184065 03/26/2013 [facility] Screening colonoscopy 637025600 03/26/2013 [facility] Screening colonoscopy 561719289 03/26/2013 [facility] Back fusion [id number] [facility] Colon operation [id number] [facility] Hernia repair [id number] [facility] Back fusion [id number] [facility] Colon operation [id number] [facility] Back fusion [id number] [facility] Colon operation [id number] [facility] Hernia repair [id number] [facility] Back fusion [id number] [facility] Colon operation [id number] [facility] Hernia repair [id number] [facility] Back fusion [id number] [facility] Colon operation [id number] [facility] Hernia repair [id number] [facility] Hernia repair [id number] [facility]
--- OUTSIDE RECORDS SUMMARY | 2018-05-20 10:38 | XMS REPORT | Summary of Care ---
Author Author [facility] Organization [facility] Address Unknown Phone Unavailable Encounter [facility] Thomas(FIN) [id number] Date(s): 05/13/18 - 05/13/18 [place] [id number] [place] [address]- [phone] Encounter Diagnosis Chronic back pain (Discharge Diagnosis) - 05/13/18 Discharge Disposition: Home or Self Care Attending Physician: Lana Greenfield MD Vital Signs Most recent to 1 2 oldest [Reference Range]: Height 167.64 cm (05/13/18 7:14 AM) Temperature Oral 97.6 DegF [96.4-99.1 DegF] (05/13/18 7:14 AM) Blood Pressure 165/96 mmHg 160/91 mmHg [90-140/60-90 mmHg] *HI* *HI* (05/13/18 7:56 AM) (05/13/18 7:14 AM) Respiratory Rate 16 BRMIN 18 BRMIN [14-20 BRMIN] (05/13/18 7:56 AM) (05/13/18 7:14 AM) Peripheral Pulse 87 bpm 96 bpm Rate [60-100 bpm] (05/13/18 7:56 AM) (05/13/18 7:14 AM) Weight 97.727 kg (05/13/18 7:14 AM) Body Mass Index 34.77 m2 (05/13/18 7:14 AM) Problem List Condition Effective Dates Status Health Status Informant Arthritis(Confirmed) Resolved Back Resolved problem(Confirmed) Depression(Confirmed Resolved ) H/O: < 03/26/09 Resolved stroke(Confirmed) H/O Resolved osteoporosis(Confirm ed) Hypertension(Confirm Resolved ed) Cancer of Resolved colon(Confirmed) Morbid Active obesity(Confirmed) Allergies, Adverse Reactions, Alerts Substance Reaction Severity Status penicillin Active NKDA Active Medications Tylenol with Codeine #3 oral tablet 1 tab, PO, TID, PRN Pain, X 7 day, # 21 tab, 0 Refill(s) Start Date: 05/13/18 Stop Date: 05/20/18 Status: Ordered Tylenol with Codeine #3 oral tablet 1 tab, Route: PO, Drug Form: TAB, Dosing Weight 97.727, kg, ONCE, STAT, Start da te: 05/13/18 7:42:00 [employer], Stop date: 05/13/18 7:42:00 [employer] Start Date: 05/13/18 Stop Date: 05/13/18 Status: Completed Results No data available for this section Immunizations Given and Recorded Vaccine Date Status Refusal Reason influenza virus vaccine, inactivated 12/24/16 Recorded pneumococcal 13-valent vaccine 03/26/16 Recorded diphtheria/pertussis, acel/tetanus adult 03/26/16 Recorded diphtheria-tetanus toxoids 03/26/16 Recorded Procedures Procedure Date Related Diagnosis Body Site Status Depression screening 03/26/17 Completed Fall risk assessment 03/26/17 Completed Eye examination 03/26/16 Completed Screening colonoscopy 03/26/13 Completed Back fusion Completed Colon operation Completed Hernia repair Completed Social History Social History Type Response Substance Abuse Use: None. Sexual Sexually active: Yes. Testicular Self Exam No. Exercise Exercise frequency: 1-2 times/week. Employment/School Status: Retired. Alcohol Never Smoking Status Never smoker; Ready to change: No; Concerns about tobacco use in household: No; Exposure to Tobacco Smoke None; Cigarette Smoking Last 365 Days No; Reg Smoking Cessation Counseling Yes entered on: 05/13/18 Assessment and Plan No data available for this section
--- OUTSIDE RECORDS SUMMARY | 2018-05-20 10:38 | XMS REPORT | Summary of Care ---
Author Author [facility] Organization [facility] Address Unknown Phone Unavailable Encounter MAXWELL Guzman(ALVIN) [id number] Date(s): 01/08/17 - 01/09/17 [facility] [address] [place] [address]- [phone] Discharge Diagnosis: Chronic back pain Discharge Diagnosis: Chronic low back pain with sciatica Discharge Disposition: Home or Self Care Attending Physician: Shalini Wyatt MD Vital Signs Most recent to 1 2 oldest [Reference Range]: Height 170.18 cm (01/08/17 9:38 PM) Temperature Oral 98.1 DegF 98.2 DegF [96.4-99.1 DegF] (01/09/17 4:09 AM) (01/08/17 9:38 PM) Blood Pressure 150/86 mmHg 153/107 mmHg [90-140/60-90 mmHg] *HI* *HI* (01/09/17 4:09 AM) (01/08/17 9:38 PM) Respiratory Rate 18 BRMIN 18 BRMIN [14-20 BRMIN] (01/09/17 4:09 AM) (01/08/17 9:38 PM) Peripheral Pulse 88 bpm 84 bpm Rate [60-100 bpm] (01/09/17 4:09 AM) (01/08/17 9:38 PM) Weight 95.455 kg (01/08/17 9:38 PM) Body Mass Index 32.96 m2 (01/08/17 9:38 PM) Problem List Condition Effective Dates Status Health Status Informant Back Resolved problem(Confirmed) Cancer of Resolved colon(Confirmed) Allergies, Adverse Reactions, Alerts Substance Reaction Severity Status penicillin Active Medications dexamethasone 6 mg, Route: IM, ONCE, Dosing Weight 95.455, kg, Start date: 01/09/17 1:23:00 CD T, Stop date: 01/09/17 1:23:00 CDT Start Date: 01/09/17 Stop Date: 01/09/17 Status: Completed ketOROLAC 60 mg, Route: IM, Drug form: INJ, ONCE, Dosing Weight 95.455, kg, Priority: STAT , Start date: 01/09/17 1:22:00 CDT, Stop date: 01/09/17 1:22:00 CDT Start Date: 01/09/17 Stop Date: 01/09/17 Status: Completed [place] 7.5/325 oral tablet 1 tab, Route: PO, Drug Form: TAB, Dosing Weight 95.455, kg, ONCE, STAT, Start da te: 01/09/17 3:39:00 CDT, Stop date: 01/09/17 3:39:00 CDT Start Date: 01/09/17 Stop Date: 01/09/17 Status: Completed Tylenol with Codeine #3 oral tablet 1 - 2 tab, PO, Q4H, PRN Pain, not to exceed 4000 mg acetaminophen per day, X 2 d ay, # 20 tab, 0 Refill(s) Start Date: 01/09/17 Stop Date: 01/11/17 Status: Completed Valium 10 mg, Route: PO, ONCE, Dosing Weight 95.455, kg, Priority: STAT, Start date: 1:21:00 CDT, Stop date: 01/09/17 1:21:00 CDT Start Date: 01/09/17 Stop Date: 01/09/17 Status: Completed Results URINE AND STOOL Most recent to 1 oldest [Reference Range]: UA Turbidity [Clear] Slight *ABN* (01/09/17 1:58 AM) UA Color Ltyellow *NA* (01/09/17 1:58 AM) UA pH [5.0-8.0] 6.0 (01/09/17 1:58 AM) UA Spec Grav 1.014 [<=1.030] (01/09/17 1:58 AM) UA Glucose [Negative Negative mg/dL mg/dL] *NA* (01/09/17 1:58 AM) UA Blood [Negative] Small *ABN* (01/09/17 1:58 AM) UA Ketones [Negative Negative mg/dL mg/dL] *NA* (01/09/17 1:58 AM) UA Protein [Negative 30 mg/dL mg/dL] *ABN* (01/09/17 1:58 AM) UA Urobilinogen <=1.0 mg/dL [0.1-1.0 mg/dL] *NA* (01/09/17 1:58 AM) UA Bili [Negative] Negative *NA* (01/09/17 1:58 AM) UA Leuk Est Negative [Negative] (01/09/17 1:58 AM) UA Nitrite Negative [Negative] (01/09/17 1:58 AM) UA WBC [0-5 /HPF] <1 /HPF (01/09/17 1:58 AM) UA RBC [0-2 /HPF] 1 /HPF (01/09/17 1:58 AM) UA Bacteria [None Occasional /HPF Seen /HPF] *NA* (01/09/17 1:58 AM) UA Sq Epi None Seen *NA* (01/09/17 1:58 AM) UA Hyal Cast [0-2 1 /LPF /LPF] (01/09/17 1:58 AM) UA Mucus [None Seen Moderate /LPF /LPF] *ABN* (01/09/17 1:58 AM) Immunizations No data available for this section Procedures Procedure Date Related Diagnosis Body Site Back fusion Colon operation Hernia repair Social History Social History Type Response Substance Abuse Use: None. Alcohol Never Smoking Status Never smoker; Ready to change: No; Concerns about tobacco use in household: No; Exposure to Tobacco Smoke None; Cigarette Smoking Last 365 Days No; Reg Smoking Cessation Counseling Yes Assessment and Plan No data available for this section
--- OUTSIDE RECORDS SUMMARY | 2018-05-20 10:38 | XMS REPORT | Summary of Care ---
Author Author [facility] Organization [facility] Address Unknown Phone Unavailable Encounter MAXWELL Guzman(ALVIN) [id number] Date(s): 04/28/16 - 04/28/16 [facility] [address] [place] [address]- Discharge Diagnosis: Chronic left lumbar radiculopathy Discharge Disposition: Home or Self Care Attending Physician: Oly Wilkerson MD Vital Signs Most recent to 1 2 oldest [Reference Range]: Height 170.18 cm (04/28/16 1:22 PM) Temperature Oral 98.0 DegF 97.9 DegF [96.4-99.1 DegF] (04/28/16 3:41 PM) (04/28/16 1:22 PM) Blood Pressure 133/89 mmHg 150/90 mmHg [90-140/60-90 mmHg] (04/28/16 3:41 PM) *HI* (04/28/16 1:22 PM) Respiratory Rate 18 BRMIN 16 BRMIN [14-20 BRMIN] (04/28/16 3:41 PM) (04/28/16 1:22 PM) Peripheral Pulse 81 bpm 88 bpm Rate [60-100 bpm] (04/28/16 3:41 PM) (04/28/16 1:22 PM) Weight 93.182 kg (04/28/16 1:22 PM) Body Mass Index 32.17 m2 (04/28/16 1:22 PM) Problem List Condition Effective Dates Status Health Status Informant Back Resolved problem(Confirmed) Cancer of Resolved colon(Confirmed) Allergies, Adverse Reactions, Alerts Substance Reaction Severity Status NKDA Active Medications cyclobenzaprine 10 mg, Route: PO, ONCE, Dosing Weight 93.182, kg, Priority: STAT, Start date: 13:56:00 SECOND CRUSHER, Stop date: 04/28/16 13:56:00 SECOND CRUSHER Start Date: 04/28/16 Stop Date: 04/28/16 Status: Completed cyclobenzaprine 10 mg oral tablet 10 mg=1 tab, PO, TID, PRN for spasms, X 10 day, # 30 tab, 0 Refill(s) Start Date: 04/28/16 Stop Date: 05/08/16 Status: Ordered dexamethasone 8 mg, Route: IM, ONCE, Dosing Weight 93.182, kg, Priority: STAT, Start date: 06/09 13:56:00 SECOND CRUSHER, Stop date: 04/28/16 13:56:00 SECOND CRUSHER Start Date: 04/28/16 Stop Date: 04/28/16 Status: Completed ketOROLAC 60 mg, Route: IM, Drug form: INJ, ONCE, Dosing Weight 93.182, kg, Priority: STAT , Start date: 04/28/16 13:56:00 SECOND CRUSHER, Stop date: 04/28/16 13:56:00 SECOND CRUSHER Start Date: 04/28/16 Stop Date: 04/28/16 Status: Completed Tylenol with Codeine #3 oral tablet 1 - 2 tab, PO, Q6H, PRN Pain, X 4 day, # 15 tab, 0 Refill(s) Start Date: 04/28/16 Stop Date: 05/02/16 Status: Ordered Results URINE AND STOOL Most recent to 1 oldest [Reference Range]: UA Turbidity [Clear] Clear (04/28/16 2:02 PM) UA Color [Yellow] Yellow *NA* (04/28/16 2:02 PM) UA pH [5.0-8.0] 5.0 (04/28/16 2:02 PM) UA Spec Grav 1.027 [<=1.030] (04/28/16 2:02 PM) UA Glucose [Negative Negative mg/dL mg/dL] *NA* (04/28/16 2:02 PM) UA Blood [Negative] Small *ABN* (04/28/16 2:02 PM) UA Ketones [Negative Negative mg/dL mg/dL] *NA* (04/28/16 2:02 PM) UA Protein [Negative Negative mg/dL mg/dL] (04/28/16 2:02 PM) UA Urobilinogen <=1.0 mg/dL [0.1-1.0 mg/dL] *NA* (04/28/16 2:02 PM) UA Bili [Negative] Negative *NA* (04/28/16 2:02 PM) UA Leuk Est Negative [Negative] (04/28/16 2:02 PM) UA Nitrite Negative [Negative] (04/28/16 2:02 PM) UA WBC [0-5 /HPF] <1 /HPF (04/28/16 2:02 PM) UA RBC [0-2 /HPF] 2 /HPF (04/28/16 2:02 PM) UA Sq Epi None Seen *NA* (04/28/16 2:02 PM) UA Mucus [None Seen Few /LPF /LPF] *NA* (04/28/16 2:02 PM) Immunizations No data available for this [...]
--- OUTSIDE RECORDS SUMMARY | 2018-05-20 10:39 | XMS REPORT | Summary of Care ---
Author Author [facility] Organization [facility] Address Unknown Phone Unavailable Encounter MAXWELL Guzman(ALVIN) [id number] Date(s): 07/05/17 - 07/05/[address] [address]- Encounter Diagnosis Chronic lumbar pain (Discharge Diagnosis) - 07/05/17 Discharge Disposition: Home or Self Care Attending Physician: Torey Raza MD Vital Signs 1 2 3 Most recent to oldest [Reference Range]: 170.18 cm (07/05/17 1:01 PM) Height 110/78 mmHg (07/05/17 3:06 PM) 108/73 mmHg (07/05/17 1:18 PM) 133/87 mmHg (07/05/17 1:01 PM) Blood Pressure [90-140/60-90 mmHg] 20 BRMIN (07/05/17 3:06 PM) 20 BRMIN (07/05/17 1:18 PM) 16 BRMIN (07/05/17 1:01 PM) Respiratory Rate [14-20 BRMIN] 78 bpm (07/05/17 3:06 PM) 79 bpm (07/05/17 1:01 PM) Peripheral Pulse Rate [60-100 bpm] 95.045 kg (07/05/17 1:01 PM) Weight 32.82 m2 (07/05/17 1:01 PM) Body Mass Index Problem List Condition Effective Dates Status Health Status Informant Back Resolved problem(Confirmed) Cancer of Resolved colon(Confirmed) Allergies, Adverse Reactions, Alerts Substance Reaction Severity Status penicillin Active Medications gabapentin 400 mg oral capsule 400 mg=1 cap, PO, TID, # 120 cap, 0 Refill(s), Pharmacy: [facility]/pharmacy #[id number] Start Date: 07/05/17 Status: Ordered ketOROLAC 15 mg/mL injectable solution 15 mg, Route: IM, ONCE, Dosing Weight 95.045, kg, Start date: 07/05/17 14:24:00 CDT, Stop date: 07/05/17 14:24:00 CDT Start Date: 07/05/17 Stop Date: 07/05/17 Status: Completed morphine Sulfate 2 mg, Route: IM, ONCE, Dosing Weight 95.045, kg, Priority: STAT, Start date: 03/12 14:24:00 CDT, Stop date: 07/05/17 14:24:00 CDT Start Date: 07/05/17 Stop Date: 07/05/17 Status: Completed Tylenol with Codeine #3 oral tablet 1 - 2 tab, PO, Q4H, PRN Pain, X 3 day, # 20 tab, 0 Refill(s) Start Date: 07/05/17 Stop Date: 07/08/17 Status: Ordered Results No data available for this section Immunizations No data available for this section Procedures Procedure Date Related Diagnosis Body Site Status Back fusion Completed Colon operation Completed Hernia repair Completed Social History Social History Type Response Substance Abuse Use: None. Alcohol Never Smoking Status Never smoker; Ready to change: No; Concerns about tobacco use in household: No; Exposure to Tobacco Smoke None; Cigarette Smoking Last 365 Days No; Reg Smoking Cessation Counseling Yes entered on: 07/04/17 Assessment and Plan No data available for this section
--- OUTSIDE RECORDS SUMMARY | 2018-05-20 10:39 | XMS REPORT | Summary of Care ---
Author Author [facility] Organization [facility] Address Unknown Phone Unavailable Encounter HQ Thomas(ALVIN) [id number] Date(s): 05/07/17 - 05/07/17 [facility] [address] [place] [address]- Encounter Diagnosis Low back pain (Final) - 05/13/17 Other chronic pain (Final) - Back pain, chronic (Discharge Diagnosis) - 05/07/17 Discharge Disposition: Home or Self Care Attending Physician: Matteo Bishop MD Vital Signs Most recent to 1 oldest [Reference Range]: Height 180.34 cm (05/07/17 6:32 PM) Temperature Oral 98.4 DegF [96.4-99.1 DegF] (05/07/17 6:32 PM) Blood Pressure 169/95 mmHg [90-140/60-90 mmHg] *HI* (05/07/17 6:32 PM) Respiratory Rate 18 BRMIN [14-20 BRMIN] (05/07/17 6:32 PM) Peripheral Pulse 87 bpm Rate [60-100 bpm] (05/07/17 6:32 PM) Weight 100 kg (05/07/17 6:32 PM) Body Mass Index 30.75 m2 (05/07/17 6:32 PM) Problem List Condition Effective Dates Status Health Status Informant Arthritis(Confirmed) Resolved Back Resolved problem(Confirmed) Depression(Confirmed Resolved ) H/O: < 03/26/09 Resolved stroke(Confirmed) H/O Resolved osteoporosis(Confirm ed) Hypertension(Confirm Resolved ed) Cancer of Resolved colon(Confirmed) Morbid Active obesity(Confirmed) Allergies, Adverse Reactions, Alerts Substance Reaction Severity Status penicillin Active Medications Medrol Dosepak 4 mg oral tablet See Instructions, PO, Take by mouth as directed on label., # 1 Pack, 0 Refill(s) Start Date: 05/07/17 Stop Date: 07/20/17 Status: Discontinued Results No data available for this section [...] Reg Smoking Cessation Counseling Yes entered on: 08/03/17 Assessment and Plan No data available for this section
--- OUTSIDE RECORDS SUMMARY | 2018-05-20 10:39 | XMS REPORT | Summary of Care ---
Author Author [facility] Organization [facility] Address Unknown Phone Unavailable Encounter MAXWELL Guzman(ALVIN) [id number] Date(s): 11/29/16 - 11/29/16 [facility] [address] [place] [address]- Discharge Diagnosis: Back pain Discharge Disposition: Home or Self Care Attending Physician: Win Sanders MD Vital Signs Most recent to 1 2 oldest [Reference Range]: Height 170.18 cm (11/29/16 3:55 PM) Temperature Oral 98.3 DegF 98.1 DegF [96.4-99.1 DegF] (11/29/16 9:09 PM) (11/29/16 3:55 PM) Blood Pressure 132/88 mmHg 141/91 mmHg [90-140/60-90 mmHg] (11/29/16 9:09 PM) *HI* (11/29/16 3:55 PM) Respiratory Rate 18 BRMIN 17 BRMIN [14-20 BRMIN] (11/29/16 9:09 PM) (11/29/16 3:55 PM) Peripheral Pulse 85 bpm 94 bpm Rate [60-100 bpm] (11/29/16 9:09 PM) (11/29/16 3:55 PM) Weight 95.909 kg (11/29/16 3:55 PM) Body Mass Index 33.12 m2 (11/29/16 3:55 PM) Problem List Condition Effective Dates Status Health Status Informant Back Resolved problem(Confirmed) Cancer of Resolved colon(Confirmed) Allergies, Adverse Reactions, Alerts Substance Reaction Severity Status penicillin Active Medications acetaminophen-hydrocodone 325 mg-10 mg oral tablet 1 tab, Route: PO, Dosing Weight 95.909, kg, ONCE, STAT, Start date: 11/29/16 19: 26:00 CDT, Stop date: 11/29/16 19:26:00 CDT Start Date: 11/29/16 Stop Date: 11/29/16 Status: Completed dexamethasone 10 mg, Route: IM, ONCE, Dosing Weight 95.909, kg, Priority: STAT, Start date: 19:26:00 CDT, Stop date: 11/29/16 19:26:00 CDT Start Date: 11/29/16 Stop Date: 11/29/16 Status: Completed ketOROLAC 60 mg, Route: IM, Drug form: INJ, ONCE, Dosing Weight 95.909, kg, Priority: STAT , Start date: 11/29/16 19:26:00 CDT, Stop date: 11/29/16 19:26:00 CDT Start Date: 11/29/16 Stop Date: 11/29/16 Status: Completed ketOROLAC 10 mg oral tablet 10 mg=1 tab, PO, Q6H, PRN as needed for pain, X 5 day, # 20 tab, 0 Refill(s) Start Date: 11/29/16 Stop Date: 12/04/16 Status: Ordered Medrol Dosepak 4 mg oral tablet See Instructions, PO, Take by mouth as directed on label., # 1 Pack, 0 Refill(s) Start Date: 11/29/16 Stop Date: 12/05/16 Status: Ordered Tylenol with Codeine #4 oral tablet 1 tab, PO, Q6H, PRN pain, X 5 day, # 20 tab, 0 Refill(s) Start Date: 11/29/16 Stop Date: 12/04/16 Status: Ordered Valium 10 mg, Route: IM, ONCE, Dosing Weight 95.909, kg, Priority: STAT, Start date: 19:26:00 CDT, Stop date: 11/29/16 19:26:00 CDT Start Date: 11/29/16 Stop Date: 11/29/16 Status: Completed Valium 10 mg oral tablet 10 mg=1 tab, PO, TID, PRN Muscle Spasms, X 4 day, # 12 tab, 0 Refill(s) Start Date: 11/29/16 Stop Date: 12/03/16 Status: Ordered Results URINE AND STOOL Most recent to 1 oldest [Reference Range]: UA Turbidity [Clear] Clear (11/29/16 7:44 PM) UA Color Ltyellow *NA* (11/29/16 7:44 PM) UA pH [5.0-8.0] 5.0 (11/29/16 7:44 PM) UA Spec Grav 1.010 [<=1.030] (11/29/16 7:44 PM) UA Glucose [Negative Negative mg/dL mg/dL] *NA* (11/29/16 7:44 PM) UA Blood [Negative] Negative (11/29/16 7:44 PM) UA Ketones [Negative Negative mg/dL mg/dL] *NA* (11/29/16 7:44 PM) UA Protein [Negative Negative mg/dL mg/dL] (11/29/16 7:44 PM) UA Urobilinogen <=1.0 mg/dL [0.1-1.0 mg/dL] *NA* (11/29/16 7:44 PM) UA Bili [Negative] Negative *NA* (11/29/16 7:44 PM) UA Leuk Est Negative [Negative] (11/29/16 7:44 PM) UA Nitrite Negative [Negative] (11/29/16 7:44 PM) UA WBC [0-5 /HPF] <1 /HPF (11/29/16 7:44 PM) UA Bacteria [None Occasional /HPF Seen /HPF] *NA* (11/29/16 7:44 PM) UA Sq Epi None Seen *NA* (11/29/16 7:44 PM) UA Mucus [None Seen Few /LPF /LPF] *NA* (11/29/16 7:44 PM) Immunizations No data available for this section Procedures Procedure Date Related Diagnosis Body Site Back fusion Colon operation Hernia repair Social History Social History Type Response Smoking Status Never smoker; Ready to change: No; Concerns about tobacco use in household: No; Exposure to Tobacco Smoke None; Cigarette Smoking Last 365 Days No; Reg Smoking Cessation Counseling No Assessment and Plan No data available for this section
--- OUTSIDE RECORDS SUMMARY | 2018-05-20 10:39 | XMS REPORT | Summary of Care ---
Author Author [facility] Organization [facility] Address Unknown Phone Unavailable Encounter HQ Thomas(ALVIN) [id number] Date(s): 04/27/17 - 04/27/17 [facility] [address] [place] [address]- Encounter Diagnosis Chronic back pain (Discharge Diagnosis) - 04/27/17 Low back pain (Final) - 05/02/17 Other chronic pain (Final) - Arthrodesis status (Final) - Discharge Disposition: Home or Self Care Attending Physician: Tanya Stanton MD Vital Signs 1 2 3 Most recent to oldest [Reference Range]: 154.94 cm (04/27/17 3:24 PM) Height 98.1 DegF (04/27/17 10:58 PM) 98.4 DegF (04/27/17 9:59 PM) 98.4 DegF (04/27/17 3:24 PM) Temperature Oral [96.4-99.1 DegF] 145/78 mmHg *HI* (04/27/17 10:58 PM) 157/89 mmHg *HI* (04/27/17 9:59 PM) 156/89 mmHg *HI* (04/27/17 3:24 PM) Blood Pressure [90-140/60-90 mmHg] 17 BRMIN (04/27/17 10:58 PM) 18 BRMIN (04/27/17 9:59 PM) 18 BRMIN (04/27/17 3:24 PM) Respiratory Rate [14-20 BRMIN] 78 bpm (04/27/17 10:58 PM) 81 bpm (04/27/17 9:59 PM) 81 bpm (04/27/17 3:24 PM) Peripheral Pulse Rate [60-100 bpm] 95.909 kg (04/27/17 3:24 PM) Weight 39.95 m2 (04/27/17 3:24 PM) Body Mass Index Problem List Condition Effective Dates Status Health Status Informant Arthritis(Confirmed) Resolved Back Resolved problem(Confirmed) Depression(Confirmed Resolved ) H/O: < 03/26/09 Resolved stroke(Confirmed) H/O Resolved osteoporosis(Confirm ed) Hypertension(Confirm Resolved ed) Cancer of Resolved colon(Confirmed) Morbid Active obesity(Confirmed) Allergies, Adverse Reactions, Alerts Substance Reaction Severity Status penicillin Active Medications No data available for this section Results No data available for this section [...] Reg Smoking Cessation Counseling Yes entered on: 07/20/17 Assessment and Plan No data available for this section
--- OUTSIDE RECORDS SUMMARY | 2018-05-20 10:39 | XMS REPORT | Summary of Care ---
Author Author [facility] Organization [facility] Address Unknown Phone Unavailable Encounter MAXWELL Guzman(ALVIN) [id number] Date(s): 03/26/17 - 03/26/17 [facility] [address] [place] [address]- Discharge Diagnosis: Acute low back pain Discharge Disposition: Home or Self Care Attending Physician: Shalini Wyatt MD Vital Signs Most recent to 1 2 oldest [Reference Range]: Height 172.72 cm (03/26/17 10:47 AM) Temperature Oral 98.3 DegF 98.5 DegF [96.4-99.1 DegF] (03/26/17 1:52 PM) (03/26/17 10:47 AM) Blood Pressure 128/70 mmHg 131/71 mmHg [90-140/60-90 mmHg] (03/26/17 1:52 PM) (03/26/17 10:47 AM) Respiratory Rate 18 BRMIN 16 BRMIN [14-20 BRMIN] (03/26/17 1:52 PM) (03/26/17 10:47 AM) Peripheral Pulse 68 bpm 72 bpm Rate [60-100 bpm] (03/26/17 1:52 PM) (03/26/17 10:47 AM) Weight 95.909 kg (03/26/17 10:47 AM) Body Mass Index 32.15 m2 (03/26/17 10:47 AM) Problem List Condition Effective Dates Status Health Status Informant Back Resolved problem(Confirmed) Cancer of Resolved colon(Confirmed) Allergies, Adverse Reactions, Alerts Substance Reaction Severity Status penicillin Active Medications ibuprofen 600 mg oral tablet 600 mg=1 tab, PO, Q6H, PRN Pain or Fever, Take with food, X 10 day, # 40 tab, 0 Refill(s) Start Date: 03/26/17 Stop Date: 04/05/17 Status: Ordered tramadol 50 mg, Route: PO, Drug form: TAB, ONCE, Dosing Weight 95.909, kg, > 50 kg, Priority: STAT, Start date: 03/26/17 11:25:00 TELLER, Stop date: 03/26/17 11:25:00 TELLER Start Date: 03/26/17 Stop Date: 03/26/17 Status: Completed Tylenol with Codeine #3 oral tablet 1 tab, PO, Q6H, PRN Pain, X 3 day, # 12 tab, 0 Refill(s) Start Date: 03/26/17 Stop Date: 03/29/17 Status: Ordered Results No data available for [...]
--- OUTSIDE RECORDS SUMMARY | 2018-05-20 10:39 | XMS REPORT | Summary of Care ---
Author Author [facility] Organization [facility] Address Unknown Phone Unavailable Encounter MAXWELL Guzman(ALVIN) [id number] Date(s): 07/04/17 - 07/04/17 [facility] [address] [place] [address]- [phone] Encounter Diagnosis Chronic back pain (Discharge Diagnosis) - 07/04/17 Discharge Disposition: Home or Self Care Attending Physician: Jericho Romero DO Vital Signs Most recent to 1 2 oldest [Reference Range]: Height 167.64 cm (07/04/17 5:41 PM) Temperature Oral 98.2 DegF 98.1 DegF [96.4-99.1 DegF] (07/04/17 8:15 PM) (07/04/17 5:41 PM) Blood Pressure 149/89 mmHg 147/93 mmHg [90-140/60-90 mmHg] *HI* *HI* (07/04/17 8:15 PM) (07/04/17 5:41 PM) Respiratory Rate 20 BRMIN 20 BRMIN [14-20 BRMIN] (07/04/17 8:15 PM) (07/04/17 5:41 PM) Peripheral Pulse 71 bpm 72 bpm Rate [60-100 bpm] (07/04/17 8:15 PM) (07/04/17 5:41 PM) Weight 96.364 kg (07/04/17 5:41 PM) Body Mass Index 34.29 m2 (07/04/17 5:41 PM) Problem List Condition Effective Dates Status Health Status Informant Back Resolved problem(Confirmed) Cancer of Resolved colon(Confirmed) Allergies, Adverse Reactions, Alerts Substance Reaction Severity Status penicillin Active Medications [place] 5/325 oral tablet 2 tab, Route: PO, Drug Form: TAB, Dosing Weight 96.364, kg, ONCE, STAT, Start da te: 07/04/17 19:35:00 CDT, Stop date: 07/04/17 19:35:00 CDT Notes: (Same as: Jey 325/5) Do not exceed 4gm/day of acetaminophen. Start Date: 07/04/17 Stop Date: 07/04/17 Status: Completed Results No data available for [...]
--- OUTSIDE RECORDS SUMMARY | 2018-05-20 10:39 | XMS REPORT | Summary of Care ---
Author Author [facility] Organization [facility] Address Unknown Phone Unavailable Encounter MAXWELL Guzman(FIN) [id number] Date(s): 08/03/17 - 08/03/17 [facility] [address] [place] [address]- [phone] Discharge Disposition: Home or Self Care Attending Physician: Dayanna Christian ELECTRONICS SPECIALIST Vital Signs Most recent to 1 2 oldest [Reference Range]: Height 167.64 cm (08/03/17 1:08 PM) Temperature Oral 98.5 DegF [96.4-99.1 DegF] (08/03/17 1:08 PM) Blood Pressure 160/100 mmHg 165/105 mmHg [90-140/60-90 mmHg] *HI* *HI* (08/03/17 1:35 PM) (08/03/17 1:08 PM) Respiratory Rate 17 BRMIN [14-20 BRMIN] (08/03/17 1:08 PM) Peripheral Pulse 80 bpm Rate [60-100 bpm] (08/03/17 1:08 PM) Problem List Condition Effective Dates Status Health Status Informant Arthritis(Confirmed) Resolved Back Resolved problem(Confirmed) Depression(Confirmed Resolved ) H/O: < 03/26/09 Resolved stroke(Confirmed) H/O Resolved osteoporosis(Confirm ed) Hypertension(Confirm Resolved ed) Cancer of Resolved colon(Confirmed) Morbid Active obesity(Confirmed) Allergies, Adverse Reactions, Alerts Substance Reaction Severity Status penicillin Active Medications gabapentin 400 mg oral capsule 400 mg=1 cap, PO, QID, # 120 cap, 0 Refill(s) Start Date: 08/03/17 Status: Ordered lisinopril 10 mg oral tablet 10 mg=1 tab, PO, Daily, # 30 tab, 0 Refill(s) Start Date: 08/03/17 Status: Ordered Results No data available for [...]
--- OUTSIDE RECORDS SUMMARY | 2018-05-20 10:39 | XMS REPORT | Summary of Care ---
Author Author [facility] Organization [facility] Address Unknown Phone Unavailable Encounter MAXWELL Guzman(ALVIN) [id number] Date(s): 02/18/17 - 02/18/17 [facility] [address] [place] [address]- [phone] Discharge Disposition: Left Against Medical Advise Attending Physician: Quinton Gunn MD Vital Signs 1 2 3 Most recent to oldest [Reference Range]: 170.18 cm (02/18/17 1:15 PM) Height 98.6 DegF (02/18/17 1:15 PM) Temperature Oral [96.4-99.1 DegF] 125/77 mmHg (02/18/17 5:26 PM) 131/91 mmHg (02/18/17 3:43 PM) 126/80 mmHg (02/18/17 1:15 PM) Blood Pressure [90-140/60-90 mmHg] 16 BRMIN (02/18/17 5:26 PM) 17 BRMIN (02/18/17 3:43 PM) 18 BRMIN (02/18/17 1:15 PM) Respiratory Rate [14-20 BRMIN] 77 bpm (02/18/17 5:26 PM) 82 bpm (02/18/17 3:43 PM) 96 bpm (02/18/17 1:15 PM) Peripheral Pulse Rate [60-100 bpm] 95.455 kg (02/18/17 1:15 PM) Weight 32.96 m2 (02/18/17 1:15 PM) Body Mass Index Problem List Condition Effective Dates Status Health Status Informant Back Resolved problem(Confirmed) Cancer of Resolved colon(Confirmed) Allergies, Adverse Reactions, Alerts Substance Reaction Severity Status penicillin Active Medications morphine Sulfate 4 mg, 2 mL, Route: IVP, Drug form: SOLN, ONCE, Dosing Weight 95.455, kg, Priorit y: STAT, Start date: 02/18/17 15:06:00 OPERATIONS RESEARCH GROUP MANAGER, Stop date: 02/18/17 15:06:00 OPERATIONS RESEARCH GROUP MANAGER Start Date: 02/18/17 Stop Date: 02/18/17 Status: Completed NS (Bolus) IV 1,000 mL, 1,000 ml/hr, Infuse Over: 1 hr, Route: IV, 1,000, Drug form: INJ, ONCE , Priority: STAT, Dosing Weight 95.455 kg, Start date: 02/18/17 15:06:00 OPERATIONS RESEARCH GROUP MANAGER, St op date: 02/18/17 15:06:00 OPERATIONS RESEARCH GROUP MANAGER Start Date: 02/18/17 Stop Date: 02/18/17 Status: Completed Tylenol with Codeine #3 oral tablet 1 tab, PO, Q6H, PRN Pain, X 2 day, # 7 tab, 0 Refill(s) Start Date: 02/18/17 Stop Date: 02/20/17 Status: Completed Zofran 4 mg, 2 mL, Route: IVP, Drug form: INJ, ONCE, Dosing Weight 95.455, kg, Priority : STAT, Start date: 02/18/17 15:06:00 OPERATIONS RESEARCH GROUP MANAGER, Stop date: 02/18/17 15:06:00 OPERATIONS RESEARCH GROUP MANAGER Notes: (Same as: Zofran) MEDICATION WASTE Product Size: 4 mgProduct Was pamela: ___ mg Start Date: 02/18/17 Stop Date: 02/18/17 Status: Completed Results ELECTROLYTES Most recent to 1 oldest [Reference Range]: Sodium Lvl [135-145 139 mEq/L mEq/L] (02/18/17 3:37 PM) Potassium Lvl 3.6 mEq/L [3.5-5.1 mEq/L] (02/18/17 3:37 PM) Chloride Lvl [95-109 106 mEq/L mEq/L] (02/18/17 3:37 PM) CO2 [24-32 mEq/L] 25 mEq/L (02/18/17 3:37 PM) AGAP [10.0-20.0 11.6 mEq/L mEq/L] (02/18/17 3:37 PM) CHEM PANEL Most recent to 1 oldest [Reference Range]: Creatinine Lvl 0.84 mg/dL [0.50-1.40 mg/dL] (02/18/17 3:37 PM) eGFR 98 mL/min/1.73m2 1 *NA* (02/18/17 3:37 PM) BUN [7-22 mg/dL] 7 mg/dL (02/18/17 3:37 PM) B/C Ratio [6-25] 8 (02/18/17 3:37 PM) Glucose Lvl [70-99 104 mg/dL mg/dL] *HI* (02/18/17 3:37 PM) Total Protein 7.2 g/dL [6.4-8.4 g/dL] (02/18/17 3:37 PM) Albumin Lvl [3.5-5.0 3.5 g/dL g/dL] (02/18/17 3:37 PM) Globulin [2.7-4.2 3.7 g/dL g/dL] (02/18/17 3:37 PM) A/G Ratio [0.7-1.6] 0.9 (02/18/17 3:37 PM) Calcium Lvl 8.6 mg/dL [8.5-10.5 mg/dL] (02/18/17 3:37 PM) ALT [0-65 unit/L] 15 unit/L (02/18/17 3:37 PM) AST [0-37 unit/L] 11 unit/L (02/18/17 3:37 PM) Alk Phos [39-136 93 unit/L unit/L] (02/18/17 3:37 PM) Bili Total [0.2-1.3 0.4 mg/dL mg/dL] (02/18/17 3:37 PM) 1Result Comment: The eGFR is calculated [...] be mul tiplied by the estimated BMI. HEMATOLOGY Most recent to 1 oldest [Reference Range]: WBC [3.7-10.4 K/CMM] 7.6 K/CMM (02/18/17 3:37 PM) RBC [4.70-6.10 4.07 M/CMM M/CMM] *LOW* (02/18/17 3:37 PM) Hgb [14.0-18.0 g/dL] 11.8 g/dL *LOW* (02/18/17 3:37 PM) Hct [42.0-54.0 %] 35.2 % *LOW* (02/18/17 3:37 PM) MCV [80.0-94.0 fL] 86.6 fL (02/18/17 3:37 PM) MCH [27.0-31.0 pg] 29.0 pg (02/18/17 3:37 PM) MCHC [32.0-36.0 33.5 g/dL g/dL] (02/18/17 3:37 PM) RDW [11.5-14.5 %] 14.2 % (02/18/17 3:37 PM) Platelet [133-450 184 K/CMM K/CMM] (02/18/17 3:37 PM) MPV [7.4-10.4 fL] 7.6 fL (02/18/17 3:37 PM) Segs [45.0-75.0 %] 69.6 % (02/18/17 3:37 PM) Lymphocytes 18.1 % [20.0-40.0 %] *LOW* (02/18/17 3:37 PM) Monocytes [2.0-12.0 5.5 % %] (02/18/17 3:37 PM) Eosinophils [0.0-4.0 6.0 % %] *HI* (02/18/17 3:37 PM) Basophils [0.0-1.0 0.8 % %] (02/18/17 3:37 PM) Segs-Bands # 5.3 K/CMM [1.5-8.1 K/CMM] (02/18/17 3:37 PM) Lymphocytes # 1.4 K/CMM [1.0-5.5 K/CMM] (02/18/17 3:37 PM) Monocytes # [0.0-0.8 0.4 K/CMM K/CMM] (02/18/17 3:37 PM) Eosinophils # 0.5 K/CMM [0.0-0.5 K/CMM] (02/18/17 3:37 PM) Basophils # [0.0-0.2 0.1 K/CMM K/CMM] (02/18/17 3:37 PM) Immunizations No data available for this [...]
--- OUTSIDE RECORDS SUMMARY | 2018-05-20 10:39 | XMS REPORT | Summary of Care ---
Author Author [facility] Address Unknown Phone Unavailable Encounter [facility] Encntr_alias(FIN) [id number] Date(s): 02/08/17 - 02/08/17 [facility] [address], [address] [place], [place] [address] [phone] Vital Signs No data available for this section Problem List Condition Effective Dates Status Health [...]
--- OUTSIDE RECORDS SUMMARY | 2018-05-20 10:39 | XMS REPORT | Summary of Care ---
Author Author [facility] Organization [facility] Address Unknown Phone Unavailable Encounter MAXWELL Guzman(ALVIN) [id number] Date(s): 10/26/17 - 10/29/17 [facility] [id number] [place] [address]- Encounter Diagnosis Sepsis (Discharge Diagnosis) - 10/26/17 Sepsis, unspecified organism (Final) - 11/06/17 Disruption of wound, unspecified, initial encounter (Final) - Other urogenital candidiasis (Final) - Hypokalemia (Final) - Moderate protein-calorie malnutrition (Final) - Body mass index (BMI) 32.0-32.9, adult (Final) - Other chronic pain (Final) - Dorsalgia, unspecified (Final) - Major depressive disorder, single episode, unspecified (Final) - Personal history of other malignant neoplasm of large intestine (Final) - Essential (primary) hypertension (Final) - Discharge Disposition: Acute Care Attending Physician: Maurizio Benentt MD Admitting Physician: Maurizio Bennett MD Vital Signs 1 2 3 Most recent to oldest [Reference Range]: 170.18 cm (10/26/17 11:55 PM) 152.4 cm (10/26/17 9:39 PM) 170.18 cm (10/26/17 5:55 PM) Height 100 kg (10/29/17 4:00 AM) Current Weight 98.6 DegF (10/29/17 4:00 AM) 98.3 DegF (10/29/17 12:00 AM) 98 DegF (10/28/17 8:00 PM) Temperature Oral [96.4-99.1 DegF] 139/74 mmHg (10/29/17 4:00 AM) 124/78 mmHg (10/29/17 12:00 AM) 126/76 mmHg (10/28/17 8:00 PM) Blood Pressure [90-140/60-90 mmHg] 18 BRMIN (10/29/17 4:00 AM) 18 BRMIN (10/29/17 12:00 AM) 18 BRMIN (10/28/17 8:00 PM) Respiratory Rate [14-20 BRMIN] 82 bpm (10/29/17 4:00 AM) 77 bpm (10/29/17 12:00 AM) 69 bpm (10/28/17 8:00 PM) Peripheral Pulse Rate [60-100 bpm] 100 kg (10/26/17 11:55 PM) 95.455 kg (10/26/17 9:39 PM) 100 kg (10/26/17 5:55 PM) Weight 34.53 m2 (10/26/17 11:55 PM) 41.1 m2 (10/26/17 9:39 PM) 34.53 m2 (10/26/17 5:55 PM) Body Mass Index Problem List Condition Effective Dates Status Health Status Informant Arthritis(Confirmed) Resolved Back Resolved problem(Confirmed) Depression(Confirmed Resolved ) H/O: < 03/26/09 Resolved stroke(Confirmed) H/O Resolved osteoporosis(Confirm ed) Hypertension(Confirm Resolved ed) Cancer of Resolved colon(Confirmed) Morbid Active obesity(Confirmed) Allergies, Adverse Reactions, Alerts Substance Reaction Severity Status penicillin Active NKDA Active Medications ATTN RN please do not admin vanc dose until trough drawn* ATTN RN please do not admin vanc dose until trough drawn*, ATTN RN, Drug form: MISC, Route: MISC, ONCE, 10/28/17 15:30:00 CDT, Stop date: 10/28/17 15:30: 00 CDT Start Date: 10/28/17 Stop Date: 10/28/17 Status: Completed acetaminophen 650 mg, 2 tab, Route: PO, Drug form: TAB, Q4H, Dosing Weight 100, kg, PRN Pain 1 -3/Temp > 100.4 F, Start date: 10/27/17 3:59:00 CDT, Duration: 30 day, Stop date: 11/26/17 3:58:00 CDT Notes: Do not exceed 4 gm/day. (Same as: Tylenol) Start Date: 10/27/17 Stop Date: 10/29/17 Status: Discontinued acetaminophen-hydrocodone 325 mg-5 mg oral tablet 1 tab, Route: PO, Drug Form: TAB, Dosing Weight 100, kg, Q4H, PRN Pain Score 4-6 , Start date: 10/27/17 3:59:00 CDT, Duration: 30 day, Stop date: 11/26/17 3:58:0 0 CDT Notes: (Same as: [place] 325/5) Do not exceed 4gm/day of acetaminophen. Start Date: 10/27/17 Stop Date: 10/29/17 Status: Discontinued ATTN: RN please update HWA on adhoc ATTN: RN please update HWA on adhoc, REMINDER, Drug form: MISC, Route: MISC, Q15 Min, 10/26/17 22:30:00 CDT, Duration: 30 day, Stop date: 11/25/17 22:15:00 CDT Start Date: 10/26/17 Stop Date: 10/26/17 Status: Deleted ATTN: RN please update HWA on adhoc ATTN: RN please update HWA on adhoc, Reminder, Drug form: MISC, Route: MISC, Q15 Min, 10/26/17 19:15:00 CDT, Duration: 30 day, Stop date: 11/25/17 19:00:00 CDT Start Date: 10/26/17 Stop Date: 10/26/17 Status: Deleted calcium gluconate + Sodium Chloride 0.9% IV 100 mL 2,000 mg, 20 mL, Route: IVPB, ONCE, Dosing Weight 93.182, kg, Start date: 16:27:00 CDT, Stop date: 10/26/17 16:27:00 CDT Notes: WASTE: F/P - Sink; E - Municipal Trash Bin Start Date: 10/26/17 Stop Date: 10/26/17 Status: Completed cefepime + Sodium Chloride 0.9% IV 100 mL 1 gm, Route: IVPB, [id number], Dosing Weight 100, kg, (CrCl >/=50 ml/min), Start date: 10/27/17 5:00:00 CDT, Duration: 7 day, Stop date: 11/02/17 21:00:00 CDT, ABX Indication: Skin/Soft Tissue Infection Notes: (Same As: Maxipime) MEDICATION WASTE Product Size: 1000 mgProduc t Wasted: ___ mg Start Date: 10/27/17 Stop Date: 10/29/17 Status: Discontinued Dextrose 50% Syringe 25 gm, 50 mL, Route: IVP, Drug Form: INJ, Dosing Weight 100, kg, PRN, PRN Blood Glucose Results, Start date: 10/27/17 11:00:00 CDT, Duration: 30 day, Stop date: 11/26/17 10:59:00 CDT Start Date: 10/27/17 Stop Date: 10/29/17 Status: Discontinued Dextrose 50% Syringe 12.5 gm, 25 mL, Route: IVP, Drug Form: INJ, Dosing Weight 100, kg, PRN, PRN Bloo d Glucose Results, Start date: 10/27/17 11:00:00 CDT, Duration: 30 day, Stop sherley e: 11/26/17 10:59:00 CDT Start Date: 10/27/17 Stop Date: 10/29/17 Status: Discontinued docusate 100 mg, 1 cap, Route: PO, Drug form: CAP, BID, Dosing Weight 100, kg, Start date : 10/27/17 9:00:00 CDT, Duration: 30 day, Stop date: 11/25/17 17:00:00 CDT Notes: (Same as: Colace) (Do Not Crush) Start Date: 10/27/17 Stop Date: 10/29/17 Status: Discontinued glucagon 1 mg, Route: IM, Drug form: PDR/INJ, PRN, Dosing Weight 100, kg, PRN Blood Gluco se Results, Start date: 10/27/17 11:00:00 CDT, Duration: 30 day, Stop date: 06/10 10:59:00 CDT Start Date: 10/27/17 Stop Date: 10/29/17 Status: Discontinued insulin lispro 2 unit, 0.02 mL, Route: SUB-Q, Drug form: SOLN, Bedtime, Dosing Weight 100, kg, PRN Blood Glucose Results, Start date: 10/27/17 11:00:00 CDT, Duration: 30 day, Stop date: 11/26/17 10:59:00 CDT Notes: (Same as: Humalog ) Roll in palms of hands gently; Do not shake `vigorou sly. "Single Patient Use Only " WASTE: F/P - Black; E - Municipal Trash Bin St able for 28 days at room temperature.Expires in days from Da te Start Date: 10/27/17 Stop Date: 10/29/17 Status: Discontinued insulin lispro 1 unit, 0.01 mL, Route: SUB-Q, Drug form: SOLN, Bedtime, Dosing Weight 100, kg, PRN Blood Glucose Results, Start date: 10/27/17 11:00:00 CDT, Duration: 30 day, Stop date: 11/26/17 10:59:00 CDT Notes: (Same as: Humalog ) Roll in palms of hands gently; Do not shake `vigorou sly. "Single Patient Use Only " WASTE: F/P - Black; E - [facility] Trash [address] St able for 28 days at room temperature.Expires in days from Da te Start Date: 10/27/17 Stop Date: 10/29/17 Status: Discontinued insulin lispro 4 unit, 0.04 mL, Route: SUB-Q, Drug form: SOLN, Bedtime, Dosing Weight 100, kg, PRN Blood Glucose Results, Start date: 10/27/17 11:00:00 CDT, Duration: 30 day, Stop date: 11/26/17 10:59:00 CDT Notes: (Same as: Humalog ) Roll in palms of hands gently; Do not shake `vigorou sly. "Single Patient Use Only " WASTE: F/P - Black; E - [facility] [address] St able for 28 days at room temperature.Expires in days from Da te Start Date: 10/27/17 Stop Date: 10/29/17 Status: Discontinued insulin lispro 3 unit, 0.03 mL, Route: SUB-Q, Drug form: SOLN, Bedtime, Dosing Weight 100, kg, PRN Blood Glucose Results, Start date: 10/27/17 11:00:00 CDT, Duration: 30 day, Stop date: 11/26/17 10:59:00 CDT Notes: (Same as: Humalog ) Roll in palms of hands gently; Do not shake `vigorou sly. "Single Patient Use Only " WASTE: F/P - Black; E - [facility] [address] St able for 28 days at room temperature.Expires in days from Da te Start Date: 10/27/17 Stop Date: 10/29/17 Status: Discontinued insulin lispro 1 unit, 0.01 mL, Route: SUB-Q, Drug form: SOLN, TID-Before Meals, Dosing Weight 100, kg, PRN Blood Glucose Results, Start date: 10/27/17 11:00:00 CDT, Duration: 30 day, Stop date: 11/26/17 10:59:00 CDT Notes: (Same as: Humalog ) Roll in palms of hands gently; Do not shake `vigorou sly. "Single Patient Use Only " WASTE: F/P - Black; E - [facility] [address] St able for 28 days at room temperature.Expires in days from Da te Start Date: 10/27/17 Stop Date: 10/29/17 Status: Discontinued insulin lispro 3 unit, 0.03 mL, Route: SUB-Q, Drug form: SOLN, TID-Before Meals, Dosing Weight 100, kg, PRN Blood Glucose Results, Start date: 10/27/17 11:00:00 CDT, Duration: 30 day, Stop date: 11/26/17 10:59:00 CDT Notes: (Same as: Humalog ) Roll in palms of hands gently; Do not shake `vigorou sly. "Single Patient Use Only " WASTE: F/P - Black; E - [facility] [address] St able for 28 days at room temperature.Expires in days from Da te Start Date: 10/27/17 Stop Date: 10/29/17 Status: Discontinued insulin lispro 4 unit, 0.04 mL, Route: SUB-Q, Drug form: SOLN, TID-Before Meals, Dosing Weight 100, kg, PRN Blood Glucose Results, Start date: 10/27/17 11:00:00 CDT, Duration: 30 day, Stop date: 11/26/17 10:59:00 CDT Notes: (Same as: Humalog ) Roll in palms of hands gently; Do not shake `vigorou sly. "Single Patient Use Only " WASTE: F/P - Black; E - [facility] [address] St able for 28 days at room temperature.Expires in days from Da te Start Date: 10/27/17 Stop Date: 10/29/17 Status: Discontinued insulin lispro 5 unit, 0.05 mL, Route: SUB-Q, Drug form: SOLN, TID-Before Meals, Dosing Weight 100, kg, PRN Blood Glucose Results, Start date: 10/27/17 11:00:00 CDT, Duration: 30 day, Stop date: 11/26/17 10:59:00 CDT Notes: (Same as: Humalog ) Roll in palms of hands gently; Do not shake `vigorou sly. "Single Patient Use Only " WASTE: F/P - Black; E - [facility] [address] St able for 28 days at room temperature.Expires in days from Da te Start Date: 10/27/17 Stop Date: 10/29/17 Status: Discontinued insulin lispro 2 unit, 0.02 mL, Route: SUB-Q, Drug form: SOLN, TID-Before Meals, Dosing Weight 100, kg, PRN Blood Glucose Results, Start date: 10/27/17 11:00:00 CDT, Duration: 30 day, Stop date: 11/26/17 10:59:00 CDT Notes: (Same as: Humalog ) Roll in palms of hands gently; Do not shake `vigorou sly. "Single Patient Use Only " WASTE: F/P - Black; E - [facility] [address] St able for 28 days at room temperature.Expires in days from Da te Start Date: 10/27/17 Stop Date: 10/29/17 Status: Discontinued morphine 5 mg/mL preservative-free injectable solution 4 mg, Route: IVP, ONCE, Dosing Weight 93.182, kg, Priority: STAT, Start date: 17:54:00 CDT, Stop date: 10/26/17 17:54:00 CDT Start Date: 10/26/17 Stop Date: 10/26/17 Status: Completed morphine Sulfate 4 mg, 1 mL, Route: IVP, Drug form: SOLN, Q4H, Dosing Weight 100, kg, PRN Pain Sc ore 7-10, Start date: 10/27/17 3:59:00 CDT, Duration: 30 day, Stop date: 8 3:58:00 CDT Notes: (Same as:MORPhine Sulfate) Start Date: 10/27/17 Stop Date: 10/29/17 Status: Discontinued morphine Sulfate 4 mg, 1 mL, Route: IVP, Drug form: SOLN, Q4H, Dosing Weight 95.455, kg, PRN Pain Score 7-10, Start date: 10/26/17 21:52:00 CDT, Duration: 30 day, Stop date: 05/13 21:51:00 CDT Notes: (Same as:MORPhine Sulfate) Start Date: 10/26/17 Stop Date: 10/27/17 Status: Discontinued morphine Sulfate 4 mg, Route: IVP, Drug form: INJ, ONCE, Dosing Weight 93.182, kg, Priority: STAT , Start date: 10/26/17 15:35:00 CDT, Stop date: 10/26/17 15:35:00 CDT Start Date: 10/26/17 Stop Date: 10/26/17 Status: Completed NS 1,000 mL 1,000 mL, Rate: 100 ml/hr, Infuse over: 10 hr, Route: IV, Dosing Weight 100 kg, Total Volume: 1,000, Start date: 10/27/17 11:00:00 CDT, Duration: 30 day, Stop d ate: 11/26/17 10:59:00 CDT, 2.2, m2 Start Date: 10/27/17 Stop Date: 10/29/17 Status: Discontinued ondansetron 4 mg, 2 mL, Route: IVP, Drug form: INJ, Q6H, Dosing Weight 100, kg, PRN Nausea & Vomiting, Start date: 10/27/17 3:59:00 CDT, Duration: 30 day, Stop date: 3:58:00 CDT Notes: (Same as: Claudia) MEDICATION WASTE Product Size: 4 mgProduct Was pamela: ___ mg Start Date: 10/27/17 Stop Date: 10/29/17 Status: Discontinued rifaMPIN 300 mg, Route: PO, BID, Dosing Weight 100, kg, Start date: 10/29/17 9:00:00 CDT, Duration: 30 day, Stop date: 11/27/17 17:00:00 CDT Start Date: 10/29/17 Stop Date: 10/29/17 Status: Canceled Saline Flush 0.9% 10 mL, Route: IVP, Drug Form: INJ, Dosing Weight 93.182, kg, PRN, PRN Line Flush , Start date: 10/26/17 13:43:00 CDT, Duration: 30 day, Stop date: 11/25/17 13:42 :00 CDT Notes: (Same as: BD Posiflush) Start Date: 10/26/17 Stop Date: 10/29/17 Status: Discontinued Sodium Chloride 0.9% (Bolus) IV 2,795.46 mL, 2,000 ml/hr, Route: IV, ONCE, Priority: STAT, Dosing Weight 93.182 kg, Start date: 10/26/17 13:43:00 CDT, Stop date: 10/26/17 13:43:00 CDT Start Date: 10/26/17 Stop Date: 10/26/17 Status: Completed Sodium Chloride 0.9% (titrate) 250 mL 250 mL, Rate: To prime line and flush remaining blood products., Dosing Weight 9 5.455, kg, Route: IV, Total Volume: 250, Priority: Routine, Start Date: 10/26/17 23:52:00 CDT, Duration: 1 day, Stop date: 10/27/17 23:51:00 CDT, Replace Every: 24 hr Start Date: 10/26/17 Stop Date: 10/27/17 Status: Completed vancomycin 2 gm, Route: IVPB, ONCE, Dosing Weight 93.182, kg, Time Critical Medication, Isis ority: STAT, Start date: 10/26/17 13:43:00 CDT, Stop date: 10/26/17 13:43:00 CDT , ABX Indication: Skin/Soft Tissue Infection Start Date: 10/26/17 Stop Date: 10/26/17 Status: Completed vancomycin + Dextrose 5% in Water IV 250 mL 1 gm, Route: IVPB, [id number], Dosing Weight 100, kg, Start date: 10/27/17 4:00:00 CDT, Duration: 7 day, Stop date: 11/02/17 7:00:00 CDT, ABX Indication: Skin/Soft Tissue Infection Notes: TIME CRITICAL MEDICATION(Same As: Vancocin)Infusion rate< 1000 mg: infuse over 1 [id number] - 1500 mg: infuse over 1.5 [id number] - 2000 mg: infuse over 2 hours> 2001 mg: infuse over 2.5 hoursFor adult patients only: Round to nearest 250 mg per Medical Staff approval MEDICATION WASTE Product Size: 1000 mgProduct Wasted: ___ mg Start Date: 10/27/17 Stop Date: 10/28/17 Status: Discontinued vancomycin + Dextrose 5% in Water IV 250 mL 1,000 mg, Route: IVPB, [id number], Start date: 10/29/17 3:00:00 CDT, Duration: 5 day , Stop date: 11/02/17 19:00:00 CDT, ABX Indication: Skin/Soft Tissue Infection Notes: TIME CRITICAL MEDICATION(Same As: Vancocin)Infusion rate< 1000 mg: infuse over 1 [id number] - 1500 mg: infuse over 1.5 [id number] - 2000 mg: infuse over 2 hours> 2001 mg: infuse over 2.5 hoursFor adult patients only: Round to nearest 250 mg per Medical Staff approval MEDICATION WASTE Product Size: 1000 mgProduct Wasted: ___ mg Start Date: 10/29/17 Stop Date: 10/29/17 Status: Discontinued Zofran 4 mg, Route: IVP, Drug form: INJ, ONCE, Dosing Weight 93.182, kg, Priority: STAT , Start date: 10/26/17 15:36:00 CDT, Stop date: 10/26/17 15:36:00 CDT Start Date: 10/26/17 Stop Date: 10/26/17 Status: Completed Zosyn 3.375 gm, Route: IVPB, ONCE, Dosing Weight 93.182, kg, Priority: STAT, Start sherley e: 10/26/17 13:42:00 CDT, Stop date: 10/26/17 13:42:00 CDT, ABX Indication: Skin /Soft Tissue Infection Start Date: 10/26/17 Stop Date: 10/26/17 Status: Completed Results BLOOD BANK RESULTS Most recent to 1 2 oldest [Reference Range]: ABO/Rh A POS *Unknown* (10/27/17 4:48 AM) Antibody Scrn Negative (10/27/17 4:48 AM) RBC product Product available (10/26/17 9:51 PM) ELECTROLYTES Most recent to 1 2 oldest [Reference Range]: Sodium Lvl [135-145 139 mEq/L 132 mEq/L mEq/L] (10/28/17 7:21 AM) *LOW* (10/26/17 2:26 PM) Potassium Lvl 3.4 mEq/L 3.4 mEq/L [3.5-5.1 mEq/L] *LOW* *LOW* (10/28/17 7:21 AM) (10/26/17 2:26 PM) Chloride Lvl [95-109 110 mEq/L 100 mEq/L mEq/L] *HI* (10/26/17 2:26 PM) (10/28/17 7:21 AM) CO2 [24-32 mEq/L] 20 mEq/L 22 mEq/L *LOW* *LOW* (10/28/17 7:21 AM) (10/26/17 2:26 PM) AGAP [10.0-20.0 12.4 mEq/L 13.4 mEq/L mEq/L] (10/28/17 7:21 AM) (10/26/17 2:26 PM) CHEM PANEL Most recent to 1 2 oldest [Reference Range]: Creatinine Lvl 0.68 mg/dL 1.07 mg/dL [0.50-1.40 mg/dL] (10/28/17 7:21 AM) (10/26/17 2:26 PM) eGFR 107 mL/min/1.73m2 1 77 mL/min/1.73m2 2 *NA* *NA* (10/28/17 7:21 AM) (10/26/17 2:26 PM) BUN [7-22 mg/dL] 6 mg/dL 16 mg/dL *LOW* (10/26/17 2:26 PM) (10/28/17 7:21 AM) B/C Ratio [6-25] 9 15 (10/28/17 7:21 AM) (10/26/17 2:26 PM) Glucose Lvl [70-99 93 mg/dL 97 mg/dL mg/dL] (10/28/17 7:21 AM) (10/26/17 2:26 PM) Total Protein 5.7 g/dL 6.6 g/dL [6.4-8.4 g/dL] *LOW* (10/26/17 2:26 PM) (10/28/17 7:21 AM) Albumin Lvl [3.5-5.0 2.0 g/dL 2.5 g/dL g/dL] *LOW* *LOW* (10/28/17 7:21 AM) (10/26/17 2:26 PM) Globulin [2.7-4.2 3.7 g/dL 4.1 g/dL g/dL] (10/28/17 7:21 AM) (10/26/17 2:26 PM) A/G Ratio [0.7-1.6] 0.5 0.6 *LOW* *LOW* (10/28/17 7:21 AM) (10/26/17 2:26 PM) Calcium Lvl 7.8 mg/dL 7.7 mg/dL [8.5-10.5 mg/dL] *LOW* *LOW* (10/28/17 7:21 AM) (10/26/17 2:26 PM) ALT [0-65 unit/L] 18 unit/L 21 unit/L (10/28/17 7:21 AM) (10/26/17 2:26 PM) AST [0-37 unit/L] 27 unit/L 49 unit/L (10/28/17 7:21 AM) *HI* (10/26/17 2:26 PM) Alk Phos [39-136 65 unit/L 76 unit/L unit/L] (10/28/17 7:21 AM) (10/26/17 2:26 PM) Bili Total [0.2-1.3 0.3 mg/dL 0.4 mg/dL mg/dL] (10/28/17 7:21 AM) (10/26/17 2:26 PM) Lactic Acid Lvl 1.3 mMol/L [0.5-2.2 mMol/L] (10/26/17 2:26 PM) Procalcitonin Lvl 3.76 ng/mL 3 [0.00-0.10 ng/mL] *CRIT* (10/26/17 2:26 PM) 1Result Comment: The eGFR is calculated [...] be mul tiplied by the estimated BMI. 2Result Comment: The eGFR is calculated using the [...] be mul tiplied by the estimated BMI. 3Result Comment: Critical Result(s) called to Mike at 10/26/2017 17:42 by cameron. Read back OK. CARDIAC ENZYMES Most recent to 1 2 oldest [Reference Range]: Total CK [12-191 129 unit/L unit/L] (10/26/17 2:26 PM) Troponin-I <0.02 ng/mL [0.00-0.40 ng/mL] (10/26/17 2:26 PM) TOXICOLOGY Most recent to 1 2 oldest [Reference Range]: Vanco Tr TND 16:00 *NA* (10/28/17 5:14 PM) Vanco Tr 8.5 ug/ml *NA* (10/28/17 5:14 PM) Etoh (%) .001 % *NA* (10/26/17 2:26 PM) Ethanol Lvl 1 mg/dL *NA* (10/26/17 2:26 PM) URINE AND STOOL Most recent to 1 2 oldest [Reference Range]: UA Turbidity [Clear] Slight Cloudy (10/26/17 3:17 PM) UA Color [Yellow] Yellow *NA* (10/26/17 3:17 PM) UA pH [5.0-8.0] 6.5 (10/26/17 3:17 PM) UA Spec Grav 1.015 [<=1.030] (10/26/17 3:17 PM) UA Glucose Negative [Negative] (10/26/17 3:17 PM) UA Blood [Negative] Large *ABN* (10/26/17 3:17 PM) UA Ketones [Negative >=80 mg/dL mg/dL] *ABN* (10/26/17 3:17 PM) UA Protein [Negative 100 mg/dL mg/dL] *ABN* (10/26/17 3:17 PM) UA Urobilinogen 1.0 EU/dL [0.1-1.0 EU/dL] (10/26/17 3:17 PM) UA Bili [Negative] Small *ABN* (10/26/17 3:17 PM) UA Leuk Est Negative [Negative] (10/26/17 3:17 PM) UA Nitrite Negative [Negative] (10/26/17 3:17 PM) UA WBC [None Seen 3-5 /HPF /HPF] (10/26/17 3:17 PM) UA RBC [0-2 /HPF] 6-10 /HPF *ABN* (10/26/17 3:17 PM) UA Bacteria [None Occasional /HPF Seen /HPF] (10/26/17 3:17 PM) UA Sq Epi [Few /LPF] Rare /LPF (10/26/17 3:17 PM) UA [place] Yeast [None Few /HPF Seen /HPF] *ABN* (10/26/17 3:17 PM) HEMATOLOGY Most recent to 1 2 oldest [Reference Range]: WBC [3.7-10.4 K/CMM] 3.8 K/CMM 4.3 K/CMM (10/28/17 7:21 AM) (10/26/17 2:26 PM) RBC [4.70-6.10 3.56 M/CMM 3.01 M/CMM M/CMM] *LOW* *LOW* (10/28/17 7:21 AM) (10/26/17 2:26 PM) Hgb [14.0-18.0 g/dL] 8.8 g/dL 7.0 g/dL 1 *LOW* *CRIT* (10/28/17 7:21 AM) (10/26/17 2:26 PM) Hct [42.0-54.0 %] 27.0 % 21.3 % *LOW* *LOW* (10/28/17 7:21 AM) (10/26/17 2:26 PM) MCV [80.0-94.0 fL] 75.8 fL 70.8 fL *LOW* *LOW* (10/28/17 7:21 AM) (10/26/17 2:26 PM) MCH [27.0-31.0 pg] 24.7 pg 23.3 pg *LOW* *LOW* (10/28/17 7:21 AM) (10/26/17 2:26 PM) MCHC [32.0-36.0 32.6 g/dL 32.9 g/dL g/dL] (10/28/17 7:21 AM) (10/26/17 2:26 PM) RDW [11.5-14.5 %] 18.9 % 17.9 % *HI* *HI* (10/28/17 7:21 AM) (10/26/17 2:26 PM) MPV [7.4-10.4 fL] 8.5 fL 8.4 fL (10/28/17 7:21 AM) (10/26/17 2:26 PM) Platelet [133-450 149 K/CMM 149 K/CMM K/CMM] (10/28/17 7:21 AM) (10/26/17 2:26 PM) Segs [45.0-75.0 %] 61.9 % 76.9 % (10/28/17 7:21 AM) *HI* (10/26/17 2:26 PM) Lymphocytes 22.5 % 11.7 % [20.0-40.0 %] (10/28/17 7:21 AM) *LOW* (10/26/17 2:26 PM) Monocytes [2.0-12.0 11.7 % 10.6 % %] (10/28/17 7:21 AM) (10/26/17 2:26 PM) Eosinophils [0.0-4.0 3.0 % 0.4 % %] (10/28/17 7:21 AM) (10/26/17 2:26 PM) Basophils [0.0-1.0 0.9 % 0.4 % %] (10/28/17 7:21 AM) (10/26/17 2:26 PM) Neutrophils # 2.4 K/CMM 3.3 K/CMM [1.5-8.1 K/CMM] (10/28/17 7:21 AM) (10/26/17 2:26 PM) Lymphocytes # 0.9 K/CMM 0.5 K/CMM [1.0-5.5 K/CMM] *LOW* *LOW* (10/28/17 7:21 AM) (10/26/17 2:26 PM) Monocytes # [0.0-0.8 0.5 K/CMM 0.5 K/CMM K/CMM] (10/28/17 7:21 AM) (10/26/17 2:26 PM) Eosinophils # 0.1 K/CMM [0.0-0.5 K/CMM] (10/28/17 7:21 AM) Hypochrom [None 1+ Seen] (10/28/17 7:21 AM) Microcyte [None 1+ 2+ Seen] *ABN* *ABN* (10/28/17 7:21 AM) (10/26/17 2:26 PM) Plt Morph Normal (10/28/17 7:21 AM) PT [12.0-14.7 16.2 seconds seconds] *HI* (10/26/17 2:26 PM) INR [0.85-1.17] 1.29 *HI* (10/26/17 2:26 PM) PTT [22.9-35.8 42.6 seconds seconds] *HI* (10/26/17 2:26 PM) 1Result Comment: Critical Result(s) called to Yordy Arnold at 10/26/2017 14:51 by Rashid. Read back OK. Microbiology Reports TEST: Culture: Wound/Abscess w/Gram Stain STATUS: Auth (Verified) BODY SITE: Back SOURCE: Wound, Surgical COLLECTED DATE/TIME: 10/27/17 11:40 AM FINAL REPORT Rare Staphylococcus Species, Not S. aureus Moderate Group A Beta Hemolytic Streptococcus No susceptibility performed since these organisms are predictably susceptible to penicillin. If patient is penicillin allergic or susceptibility testing for additional antibiotics is clinically warranted please call the laboratory. STAIN REPORT Moderate WBC's Rare Gram Positive Cocci Immunizations Given and Recorded Vaccine Date Status [...] Yes entered on: 05/13/18 Assessment and Plan Extracted from: Title: Clinical Document Author: Michaela Bobo MD Date: 10/28/17 INFECTIOUS DISEASES PROGRESS NOTE MICHAELA BOBO M.D. Reason For Follow up: Sepsis SUBJECTIVE: pain issues Seen and examined. Events noted. Allergies (1) ActiveReaction NKDANone Documented VITAL SIGNS: VitalsTmp(F)[id number] 10/28 20:[id number]--- 10/28 16:[id number]/587960--- 10/28 14:0198.9 10/28 11:50342.115958/764446--- 24 Hr Tmax: 100.7F (38.17c) at 10/28 11:22Vital Signs are the last 5 in the past 48 hours. Input/Output RecordInOutBal 10/2824hr Tot 1010 600 410 4hr Tot 2576 1100 1476 Lines and catheters: MEDICATIONS: Scheduled Meds (3): 10/27/17 cefepime + Sodium Chloride 0.9% IV 100 mL 1 gm IVPB ABXQ8H 25 ml/hr 10/27/17 docusate 100 mg PO BID 10/29/17 vancomycin + Dextrose 5% in Water IV 250 mL 1,000 mg IVPB ABXQ8H 250 ml/hr ROS: pain PHYSICAL EXAMINATION: GEN: awake, alert HEENT: no thrush mucosa moist no ulcer no scleral icterus NECK:supple HEART: RRR S1 and S2 no murmur or gallop LUNG: CTAB to auscaultate and purcussion GI: soft NT/ND BS +ve EXT: No clubing, cyanosis edema LABORATORY DATA: Labs (Last four charted values) WBC 3.8(OCT 28)4.3(OCT 26) Hgb L 8.8(OCT 28)C 7.0(OCT 26) Hct L 27.0(OCT 28)L 21.3(OCT 26) Plt 149(OCT 28)149(OCT 26) Na 139(OCT 28)L 132(OCT 26) K L 3.4(OCT 28)L 3.4(OCT 26) CO2 L 20(OCT 28)L 22(OCT 26) Cl H 110(OCT 28)100(OCT 26) Cr 0.68(OCT 28)1.07(OCT 26) BUN L 6(OCT 28)16(OCT 26) Glucose Random 93(OCT 28)97(OCT 26) Ca L 7.8(OCT 28)L 7.7(OCT 26) PT H 16.2(OCT 26) INR H 1.29(OCT 26) PTT H 42.6(OCT 26) Troponin <0.02(OCT 26) Total CK 129(OCT 26) CULTURES: DATE/SOURCE/RESULT/ SENSITIVITIES: IMAGING: ASSESMENT AND PLAN: 57-year-old male with 1. Sepsis 2. Hardware infection 3. Rule out epidural collection. 4. Back pain. 5. Nosocomial fever patient seen and evaluated awaiting [facility] [place] bed and transfer c/o pain and cont low grade temps follow labs IV abx and supportive care add Po rifampin ANTIMICROBIALS: vanc+cefepime day ID follow up on discharge call Dr Bobo [phone] Extracted from: Title: Clinical Document Author: Michaela Bobo MD Date: 10/27/17 INFECTIOUS DISEASES CONSULTATION NOTE Michaela Bobo M.D. Attending: Maurizio Bennett MDPhone: Service: Internal Medicine Code status: None Specified=FULL CODE Reason for Admission: HYPOCALCEMIA, ANEMIA, SEPSIS Working DRG: Isolation: No Isolation/Standard Precautions Consulting Physicians: Bandar Reza MDOffice: Service: Infectious Disease Jericho Green MDOffice: Service: Neurosurgery Dyllan Khalil MDOffice: Service: Orthopedic Surgery Michaela Boob MDOffice: Service: Infectious Disease Kvng Sotomayor MDOffice: Service: Medicine Sanjiv Aguero MDOffice: Service: Orthopedic Surgery HPI: This is a 57-year-old male who has a known past medical history significant for chronic pain Recently had a procedure of as lower back and at an outside hospital he presented to our hospital with increasing pain and drainage to the wound patient noted to have a temp of 102.7 in the hospital blood pressure was 101/60 heart rate was 91 he underwent immediate blood work that showed creatinine 1.07 his lactic acid 1.3 and pro calcitonin level was 3.75 white blood cell count 4.3 segmented neutrophils 76.9 urinalysis came back negative. He underwent diagnostic studies so far chest x-ray was done that showed no acute cardiopulmonary issues. He had a spine lumbar CT which showed status post PS I F from L4 S1 large soft tissue defect overlying the fusion hardware extending to the level of the bone graft material no definite superficial soft tissue fluid collection a subtle irregularity of the left inferior endplate of L5 to a lesser degree the inferior left L4 endplate. Infectious disease consultation was called to give recommendation. PAST MEDICAL HISTORY: History of obesity, history of hypertension, depression, colon cancer, Back pain. SURGICAL HISTORY: Fall risk assessment: 03/26/17 Depression screenin03/26/17 Eye examination: 03/26/16 Screening colonoscopy: 03/26/13 Back fusion Colon operation Hernia repair FAMILY HISTORY: Mother: Diabetes mellitus Brother: Cancer, Colon; Cancer, Lung; Clotting or Bleeding D/O Allergies (1) ActiveReaction NKDANone documented SOCIAL HISTORY: Employment/School Details: Status: Retired. Sexual Details: Sexually active: Yes. Testicular Self Exam No. Alcohol Details: Never Exercise Details: Exercise frequency: 1-2 times/week. Tobacco Details: Use: Never smoker. Ready to change: No. Household tobacco concerns: No. Tobacco smoke exposure: None. Did the Patient Smoke Cigarettes Anytime During the Last 365 Days? No. Cessation Counseling Provided? Yes. Substance Abuse Details: Use: None. ROS: (negative) Other than symptoms attributable to the present illness and past history as described above, general review of systems is otherwise negative. Complaining of severe back pain. MEDICATIONS: Scheduled Meds (3): 10/27/17 cefepime + Sodium Chloride 0.9% IV 100 mL 1 gm IVPB [id number] 25 ml/hr 10/27/17 docusate 100 mg PO BID 10/27/17 vancomycin + Dextrose 5% in Water IV 250 mL 1 gm IVPB [id number] 250 ml/hr VITAL SIGNS: VitalsTmp(F)[id number] 10/27 17:3799.784480/72--97--- 10/27 15:4097.871465/7020------ 10/27 13:48----61018/64-------- 10/27 08:1798.157108/156051--- 10/27 07:4397.125705/726874--- 24 Hr Tmax: 102.7F (39.28c) at 10/27 00:00Vital Signs are the last 5 in the past 48 hours. PHYSICAL EXAMINATION: GENERAL: Well-developed, well-nourished in no apparent distress. SKIN: Skin defect over the lower back with intact sutures and drainage which is serous changes in Junius. HEENT: Head is normocephalic and atraumatic. PERRLA, EOMI, NECK: Supple. No carotid bruits. No lymphadenopathy or thyromegaly. CHEST: Symmetrical with equal expansion. LUNGS: CTA HEART: RRR, no murmurs. . GASTROINTESTINAL: Bowel sounds are normal. Soft, NT, ND. No guarding or rebound tenderness. EXTREMITIES: No edema or varicosities. Pulses 2+ symmetric. LABS: Labs (Last four charted values) WBC 4.3(OCT 26) Hgb C 7.0(OCT 26) Hct L 21.3(OCT 26) Plt 149(OCT 26) Na L 132(OCT 26) K L 3.4(OCT 26) CO2 L 22(OCT 26) Cl 100(OCT 26) Cr 1.07(OCT 26) BUN 16(OCT 26) Glucose Random 97(OCT 26) Ca L 7.7(OCT 26) PT H 16.2(OCT 26) INR H 1.29(OCT 26) PTT H 42.6(OCT 26) Troponin <0.02(OCT 26) Total CK 129(OCT 26) CULTURES: DATE/SOURCE/RESULT/ SENSITIVITIES: IMAGING: ASSESMENT AND PLAN: 57-year-old male with 1. Sepsis 2. Hardware infection 3. Rule out epidural collection. 4. Back pain. 5. Nosocomial fever RECOMMENDATIONS: As per the infectious disease standpoint patient seen and evaluated Neurosurgery on board patient will need surgical evaluation and possible hardware extraction and explantation at this time wound abscess culture is pending patient has been given empiric antibiotics in the form of vancomycin and cefepime. Patient will be transferred to [facility] [place] transfer process has been initiated.. Thank you for providing me the opportunity to take care of this patient.
--- OUTSIDE RECORDS SUMMARY | 2018-05-20 10:39 | XMS REPORT | Summary of Care ---
Author Author [facility] Organization [facility] Address Unknown Phone Unavailable Encounter MAXWELL Guzman(ALVIN) [id number] Date(s): 12/27/16 - 12/28/16 [facility] [address] [place] [address]- Discharge Disposition: Home or Self Care Attending Physician: Tad Sarkar MD Vital Signs 1 2 3 Most recent to oldest [Reference Range]: 172.72 cm (12/27/16 10:29 AM) Height 97.6 DegF (12/28/16 12:00 PM) 97.8 DegF (12/28/16 8:00 AM) 98.8 DegF (12/28/16 3:23 AM) Temperature Oral [96.4-99.1 DegF] 130/83 mmHg (12/28/16 12:00 PM) 160/84 mmHg *HI* (12/28/16 8:00 AM) 136/84 mmHg (12/28/16 3:23 AM) Blood Pressure [90-140/60-90 mmHg] 18 BRMIN (12/28/16 12:00 PM) 18 BRMIN (12/28/16 8:00 AM) 20 BRMIN (12/27/16 8:00 PM) Respiratory Rate [14-20 BRMIN] 70 bpm (12/28/16 12:00 PM) 70 bpm (12/28/16 8:00 AM) 103 bpm *HI* (12/28/16 3:23 AM) Peripheral Pulse Rate [60-100 bpm] 94.091 kg (12/27/16 10:29 AM) Weight 31.54 m2 (12/27/16 10:29 AM) Body Mass Index Problem List Condition Effective Dates Status Health Status Informant Back Resolved problem(Confirmed) Cancer of Resolved colon(Confirmed) Allergies, Adverse Reactions, Alerts Substance Reaction Severity Status penicillin Active Medications acetaminophen 650 mg, 2 tab, Route: PO, Drug form: TAB, Q4H, Dosing Weight 94.091, kg, PRN Aggie n 1-3/Temp > 100.4 F, Start date: 12/27/16 18:20:00 CDT, Duration: 30 day, Stop date: 01/26/17 18:19:00 CDT Notes: Do not exceed 4 gm/day. (Same as: Tylenol) Start Date: 12/27/16 Stop Date: 12/28/16 Status: Discontinued acetaminophen-hydrocodone 325 mg-5 mg oral tablet 1 tab, Route: PO, Drug Form: TAB, Dosing Weight 94.091, kg, Q4H, PRN Pain Score 4-6, Start date: 12/27/16 18:20:00 CDT, Duration: 30 day, Stop date: 01/26/17 18 :19:00 CDT Notes: (Same as: [place] 325/5) Do not exceed 4gm/day of acetaminophen. Start Date: 12/27/16 Stop Date: 12/28/16 Status: Discontinued acetaminophen-hydrocodone 325 mg-5 mg oral tablet 2 tab, Route: PO, Drug Form: TAB, Dosing Weight 94.091, kg, Q4H, PRN Pain Score 7-10, Start date: 12/27/16 18:20:00 CDT, Duration: 30 day, Stop date: 01/26/17 1 8:19:00 CDT Notes: (Same as: [place] 325/5) Do not exceed 4gm/day of acetaminophen. Start Date: 12/27/16 Stop Date: 12/28/16 Status: Discontinued dexamethasone 8 mg, 0.8 mL, Route: IVP, Drug form: INJ, ONCE, Dosing Weight 94.091, kg, Priori ty: STAT, Start date: 12/27/16 11:21:00 CDT, Stop date: 12/27/16 11:21:00 CDT Notes: MEDICATION WASTE Product Size: 10 mgProduct Wasted: ___ mg Start Date: 12/27/16 Stop Date: 12/27/16 Status: Completed dexamethasone 8 mg, 2 mL, Route: IVP, Drug form: INJ, ONCE, Dosing Weight 94.091, kg, Priority : NOW, Start date: 12/28/16 14:48:00 CDT, Stop date: 12/28/16 14:48:00 CDT Notes: Concentration: 4mg/ml Start Date: 12/28/16 Stop Date: 12/28/16 Status: Completed docusate 100 mg, 1 cap, Route: PO, Drug form: CAP, BID, Dosing Weight 94.091, kg, Start d ate: 12/28/16 9:00:00 CDT, Duration: 30 day, Stop date: 01/26/17 17:00:00 CDT Notes: (Same as: Colace) (Do Not Crush) Start Date: 12/28/16 Stop Date: 12/28/16 Status: Discontinued gabapentin PO, 0 Refill(s) Start Date: 12/27/16 Stop Date: 12/28/16 Status: Discontinued gabapentin 300 mg oral capsule 300 mg, 1 cap, Route: PO, Drug form: CAP, TID, Dosing Weight 94.091, kg, Start d ate: 12/28/16 9:00:00 CDT, Duration: 30 day, Stop date: 01/26/17 17:00:00 CDT Notes: (Same as: Neurontin) Start Date: 12/28/16 Stop Date: 12/28/16 Status: Discontinued ketOROLAC 30 mg, 1 mL, Route: IVP, Drug form: INJ, ONCE, Dosing Weight 94.091, kg, Start d ate: 12/27/16 18:23:00 CDT, Duration: 1 doses or times, Stop date: 12/27/16 18:2 3:00 CDT Notes: (Same as:Toradol) IV bolus must be given >15 seconds. Give IM administration slowly and deeply into the muscle.Not for use > 4 days MEDICATION WASTE Product Size: 30 mgProduct Wasted: ___ mg Start Date: 12/27/16 Stop Date: 12/27/16 Status: Completed ketOROLAC 30 mg, Route: IVP, Drug form: INJ, ONCE, Dosing Weight 94.091, kg, Priority: STA T, Start date: 12/27/16 12:28:00 CDT, Stop date: 12/27/16 12:28:00 CDT Start Date: 12/27/16 Stop Date: 12/27/16 Status: Completed Medrol Dosepak 4 mg oral tablet See Instructions, PO, Take by mouth as directed on label., # 1 Pack, 0 Refill(s) Start Date: 12/28/16 Stop Date: 01/03/17 Status: Ordered morphine Sulfate 4 mg, Route: IVP, ONCE, Dosing Weight 94.091, kg, Priority: STAT, Start date: 14:33:00 CDT, Stop date: 12/27/16 14:33:00 CDT Start Date: 12/27/16 Stop Date: 12/27/16 Status: Completed morphine Sulfate 4 mg, 1 mL, Route: IVP, Drug form: SOLN, ONCE, Dosing Weight 94.091, kg, Priorit y: STAT, Start date: 12/27/16 11:21:00 CDT, Stop date: 12/27/16 11:21:00 CDT Notes: (Same as:MORPhine Sulfate) Start Date: 12/27/16 Stop Date: 12/27/16 Status: Completed morphine Sulfate 2 mg, 1 mL, Route: IVP, Drug form: SOLN, Q4H, Dosing Weight 94.091, kg, PRN Pain Score 7-10, Start date: 12/27/16 18:20:00 CDT, Duration: 30 day, Stop date: 06/09 18:19:00 CDT Start Date: 12/27/16 Stop Date: 12/28/16 Status: Discontinued [place] 5/325 oral tablet 1 tab, Route: PO, Drug Form: TAB, Dosing Weight 94.091, kg, Q6H, Start date: 08/09 18:48:00 CDT, Duration: 30 day, Stop date: 01/27/17 18:00:00 CDT Notes: (Same as: [place] 325/5) Do not exceed 4gm/day of acetaminophen. Start Date: 12/28/16 Stop Date: 12/27/16 Status: Canceled [place] 5/325 oral tablet 1 tab, Route: PO, Drug Form: TAB, Dosing Weight 94.091, kg, TID, Start date: 08/09 21:01:00 CDT, Duration: 30 day, Stop date: 01/27/17 17:00:00 CDT Notes: (Same as: Jey 325/5) Do not exceed 4gm/day of acetaminophen. Start Date: 12/28/16 Stop Date: 12/28/16 Status: Canceled ondansetron 4 mg, 2 mL, Route: IVP, Drug form: INJ, Q6H, Dosing Weight 94.091, kg, PRN Nause a & Vomiting, Start date: 12/27/16 18:20:00 CDT, Duration: 30 day, Stop date: 01/26/17 18:19:00 CDT Notes: (Same as: Claudia) MEDICATION WASTE Product Size: 4 mgProduct Was pamela: ___ mg Start Date: 12/27/16 Stop Date: 12/28/16 Status: Discontinued Tylenol with Codeine #3 oral tablet 1 tab, PO, Q6H, 0 Refill(s) Start Date: 12/27/16 Stop Date: 12/28/16 Status: Discontinued Tylenol with Codeine #3 oral tablet 1 - 2 tab, PO, Q4H, PRN Pain, X 4 day, # 36 tab, 0 Refill(s) Start Date: 12/28/16 Stop Date: 01/01/17 Status: Ordered Results ELECTROLYTES Most recent to 1 2 oldest [Reference Range]: Sodium Lvl [135-145 136 mEq/L 137 mEq/L mEq/L] (12/28/16 2:58 AM) (12/27/16 2:21 PM) Potassium Lvl 4.2 mEq/L 3.9 mEq/L [3.5-5.1 mEq/L] (12/28/16 2:58 AM) (12/27/16 2:21 PM) Chloride Lvl [95-109 106 mEq/L 107 mEq/L mEq/L] (12/28/16 2:58 AM) (12/27/16 2:21 PM) CO2 [24-32 mEq/L] 20 mEq/L 24 mEq/L *LOW* (12/27/16 2:21 PM) (12/28/16 2:58 AM) AGAP [10.0-20.0 14.2 mEq/L 9.9 mEq/L mEq/L] (12/28/16 2:58 AM) *LOW* (12/27/16 2:21 PM) CHEM PANEL Most recent to 1 2 oldest [Reference Range]: Creatinine Lvl 0.90 mg/dL 0.90 mg/dL [0.50-1.40 mg/dL] (12/28/16 2:58 AM) (12/27/16 2:21 PM) eGFR 96 mL/min/1.73m2 1 96 mL/min/1.73m2 2 *NA* *NA* (12/28/16 2:58 AM) (12/27/16 2:21 PM) BUN [7-22 mg/dL] 15 mg/dL 13 mg/dL (12/28/16 2:58 AM) (12/27/16 2:21 PM) B/C Ratio [6-25] 14 (12/27/16 2:21 PM) Glucose Lvl [70-99 137 mg/dL 136 mg/dL mg/dL] *HI* *HI* (12/28/16 2:58 AM) (12/27/16 2:21 PM) Total Protein 7.2 g/dL [6.4-8.4 g/dL] (12/27/16 2:21 PM) Albumin Lvl [3.5-5.0 3.6 g/dL g/dL] (12/27/16 2:21 PM) Globulin [2.7-4.2 3.6 g/dL g/dL] (12/27/16 2:21 PM) A/G Ratio [0.7-1.6] 1.0 (12/27/16 2:21 PM) Calcium Lvl 9.5 mg/dL 8.4 mg/dL [8.5-10.5 mg/dL] (12/28/16 2:58 AM) *LOW* (12/27/16 2:21 PM) ALT [0-65 unit/L] 25 unit/L (12/27/16 2:21 PM) AST [0-37 unit/L] 15 unit/L (12/27/16 2:21 PM) Alk Phos [39-136 64 unit/L unit/L] (12/27/16 2:21 PM) Bili Total [0.2-1.3 0.4 mg/dL mg/dL] (12/27/16 2:21 PM) 1Result Comment: The eGFR is calculated [...] estimated BMI. HEMATOLOGY Most recent to 1 2 oldest [Reference Range]: WBC [3.7-10.4 K/CMM] 8.8 K/CMM 6.9 K/CMM (12/28/16 2:58 AM) (12/27/16 2:21 PM) RBC [4.70-6.10 4.85 M/CMM 4.55 M/CMM M/CMM] (12/28/16 2:58 AM) *LOW* (12/27/16 2:21 PM) Hgb [14.0-18.0 g/dL] 15.2 g/dL 14.0 g/dL (12/28/16 2:58 AM) (12/27/16 2:21 PM) Hct [42.0-54.0 %] 42.3 % 41.3 % (12/28/16 2:58 AM) *LOW* (12/27/16 2:21 PM) MCV [80.0-94.0 fL] 87.1 fL 90.8 fL (12/28/16 2:58 AM) (12/27/16 2:21 PM) MCH [27.0-31.0 pg] 31.3 pg 30.7 pg *HI* (12/27/16 2:21 PM) (12/28/16 2:58 AM) MCHC [32.0-36.0 36.0 g/dL 33.8 g/dL g/dL] (12/28/16 2:58 AM) (12/27/16 2:21 PM) RDW [11.5-14.5 %] 14.1 % 14.0 % (12/28/16 2:58 AM) (12/27/16 2:21 PM) Platelet [133-450 256 K/CMM 185 K/CMM K/CMM] (12/28/16 2:58 AM) (12/27/16 2:21 PM) MPV [7.4-10.4 fL] 7.6 fL 7.2 fL (12/28/16 2:58 AM) *LOW* (12/27/16 2:21 PM) Segs [45.0-75.0 %] 81.9 % 86.9 % *HI* *HI* (12/28/16 2:58 AM) (12/27/16 2:21 PM) Lymphocytes 11.4 % 10.8 % [20.0-40.0 %] *LOW* *LOW* (12/28/16 2:58 AM) (12/27/16 2:21 PM) Monocytes [2.0-12.0 5.9 % 0.8 % %] (12/28/16 2:58 AM) *LOW* (12/27/16 2:21 PM) Eosinophils [0.0-4.0 0.1 % 1.3 % %] (12/28/16 2:58 AM) (12/27/16 2:21 PM) Basophils [0.0-1.0 0.7 % 0.2 % %] (12/28/16 2:58 AM) (12/27/16 2:21 PM) Segs-Bands # 7.2 K/CMM 6.0 K/CMM [1.5-8.1 K/CMM] (12/28/16 2:58 AM) (12/27/16 2:21 PM) Lymphocytes # 1.0 K/CMM 0.8 K/CMM [1.0-5.5 K/CMM] (12/28/16 2:58 AM) *LOW* (12/27/16 2:21 PM) Monocytes # [0.0-0.8 0.5 K/CMM 0.1 K/CMM K/CMM] (12/28/16 2:58 AM) (12/27/16 2:21 PM) Eosinophils # 0.1 K/CMM [0.0-0.5 K/CMM] (12/27/16 2:21 PM) Basophils # [0.0-0.2 0.1 K/CMM 0.0 K/CMM K/CMM] (12/28/16 2:58 AM) (12/27/16 2:21 PM) PT [12.0-14.7 13.3 seconds seconds] (12/27/16 2:21 PM) INR [0.85-1.17] 0.99 (12/27/16 2:21 PM) PTT [22.9-35.8 26.4 seconds seconds] (12/27/16 2:21 PM) Immunizations No data available for this [...] Smoking Cessation Counseling Yes Assessment and Plan Extracted from: Title: Neurosurgery Consult Note Author: Tad Schreiber AIR SURVEILLANCE OPERATOR Date: 12/28/16 Assessment/Plan Mr. Sumner is an obese 56 y/o male with pmh of colon cancer s/p left colostomy and lumbago s/p L5-S1 fusion 7 months ago in [place] admitted 12/27/16 with severe back pain and Leftleg weakness. 3 months ago the low back pain returned but two weeks ago the pain increased and the weakness has increased significantly.The pain radiates down the entire left leg, with associated tingling, and weakness. Right leg has intermittent tingling. No recent fever, chills, nausea, vomiting, urinary incontinence, or saddle anesthesia. He also reports excessive sweating in the left leg last night. He tells me that he knows he needs surgery but has an important family event next week that he cannot miss. Impression: - Left lumbar radiculopathy - Low back pain - Loosening of lumbar hardware Plan: - We discussed L5-S1 redo with possible laminectomy, he would like to discuss surgery further after family event next week - Mr. Sumner will call our office at [phone] to discuss surgery after he returns to [place] in 10 days - Pain management per primary team - IV dexamethasone 6 mg IV x1 now (appreciate 8mg iv yesterday) - Please discharge on Medrol dosepak Discussed with Dr. Gonzalez Schreiber NP Extracted from: Title: History and Physical Author: Kiran Ibrahim Date: 12/27/16 Shad GUZMAN Assessment/Plan Patient is a 56yo male with past medical history of colon cancer and back surgery 7 months ago who presented with acute worsening of back pain after a near fall in his bath tub three days ago. 1.Acute back pain MRI suspicious for compression on thecal sac L5-S1 w/o cauda equina. Decreased strength, sensation, and reflexes on left lower extremity. Received in ED: Dexamethosone 8mg, Toradol 30, and Morphine 4mg x 2 CT lumbar spine w/o contrast pending. Night sweats likely secondary to pain. Neurosurgery consulted. Continuescheduled TID and [place] 5's q6h w/ additional PRN painmedication. 2.History of colon cancer Colon cancerin 2013 who underwent treatment and now with colostomy. No problems reported with colostomy. Prophylaxis SCD's Disposition Patient admitted for evaluation of severe back pain. Pain control.Neurosurgery on board. Patient discussed with senior resident, Dr. Goyal. Kiran Pena II, MD PGY1 MSO# [id number] PGY-3 addendum: I evaluated this patient today on roundsand reviewed the medical decision making with PGY 1Dr. [facility]. Tad Sarkar. I agree with the assessment and plan as documented in the H&P above. 56-year-old malewith history of colon cancer in remissionand recentlow back surgery who presents withlow back painwith radiculopathy, along withdecreased sensation deep tendon reflexes on the leftlower extremity. Neurosurgery has been consulted for management of these findings, and additional imaging studies are pending. We will admit this patient for observationand pain control overnightpending further evaluation by neurosurgery in themorning. John Goyal MD Family Medicine, PGY-3 MSO# [id number] I was physically present during the cui portions of the patient evaluation and the medical decision making when performed by the resident and I concur with the above documented decisions made by the team under my guidance.
--- OUTSIDE RECORDS SUMMARY | 2018-05-20 10:39 | XMS REPORT | Summary of Care ---
Author Author [facility] Organization [facility] Address Unknown Phone Unavailable Encounter MAXWELL Guzman(ALVIN) [id number] Date(s): 11/02/16 - 11/02/16 [facility] [address] [place] [address]- [phone] Discharge Diagnosis: Generalized abdominal pain Discharge Disposition: Home or Self Care Attending Physician: Nola Gallo MD Vital Signs Most recent to 1 2 oldest [Reference Range]: Height 167.64 cm (11/02/16 12:23 PM) Temperature Oral 98 DegF 97.9 DegF [96.4-99.1 DegF] (11/02/16 5:33 PM) (11/02/16 12:23 PM) Blood Pressure 129/78 mmHg 142/82 mmHg [90-140/60-90 mmHg] (11/02/16 5:33 PM) *HI* (11/02/16 12:23 PM) Respiratory Rate 17 BRMIN 20 BRMIN [14-20 BRMIN] (11/02/16 5:33 PM) (11/02/16 12:23 PM) Peripheral Pulse 84 bpm 79 bpm Rate [60-100 bpm] (11/02/16 5:33 PM) (11/02/16 12:23 PM) Weight 93.182 kg (11/02/16 12:23 PM) Body Mass Index 33.16 m2 (11/02/16 12:23 PM) Problem List Condition Effective Dates Status Health Status Informant Back Resolved problem(Confirmed) Cancer of Resolved colon(Confirmed) Allergies, Adverse Reactions, Alerts Substance Reaction Severity Status NKDA Active penicillin Active Medications morphine Sulfate 4 mg, 1 mL, Route: IVP, Drug form: INJ, ONCE, Dosing Weight 93.182, kg, Priority : STAT, Start date: 11/02/16 16:33:00 CDT, Stop date: 11/02/16 16:33:00 CDT Notes: (Same as:MORPhine Sulfate) Start Date: 11/02/16 Stop Date: 11/02/16 Status: Completed morphine Sulfate 4 mg, 1 mL, Route: IVP, Drug form: INJ, ONCE, Dosing Weight 93.182, kg, Priority : STAT, Start date: 11/02/16 13:52:00 CDT, Stop date: 11/02/16 13:52:00 CDT Notes: (Same as:MORPhine Sulfate) Start Date: 11/02/16 Stop Date: 11/02/16 Status: Completed NS (Bolus) IV 1,000 mL, 1,000 ml/hr, Infuse Over: 1 hr, Route: IV, 1,000, Drug form: INJ, ONCE , Priority: STAT, Dosing Weight 93.182 kg, Start date: 11/02/16 13:51:00 CDT, Du ration: 1 doses or times, Stop date: 11/02/16 13:51:00 CDT Start Date: 11/02/16 Stop Date: 11/02/16 Status: Completed Omnipaque 300 injectable solution 85 mL, Route: IVP, Drug Form: SOLN, Dosing Weight 93.182, kg, ONCALL, GFR > 45 mL/min, STAT, Start date: 11/02/16 15:55:00 CDT, Duration: 1 doses or times Notes: (Same as:Omnipaque 300).WASTE: F/P - Black; E - Municipal Trash Bin Start Date: 11/02/16 Stop Date: 11/02/16 Status: Completed tramadol 50 mg oral tablet 50 mg=1 tab, PO, Q6H, PRN Pain, X 7 day, # 28 tab, 0 Refill(s) Start Date: 11/02/16 Stop Date: 11/02/16 Status: Discontinued Tylenol with Codeine #3 oral tablet 1 - 2 tab, PO, Q4H, PRN Pain, X 3 day, # 20 tab, 0 Refill(s) Start Date: 11/02/16 Stop Date: 11/05/16 Status: Ordered Zofran 4 mg, 2 mL, Route: IVP, Drug form: INJ, ONCE, Dosing Weight 93.182, kg, Priority : STAT, Start date: 11/02/16 13:52:00 CDT, Stop date: 11/02/16 13:52:00 CDT Notes: (Same as: Zofran) MEDICATION WASTE Product Size: 4 mgProduct Was pamela: ___ mg Start Date: 11/02/16 Stop Date: 11/02/16 Status: Completed Zofran 4 mg oral tablet 4 mg=1 tab, PO, Q6H, # 20 tab, 0 Refill(s) Start Date: 11/02/16 Stop Date: 11/07/16 Status: Ordered Results ELECTROLYTES Most recent to 1 oldest [Reference Range]: Sodium Lvl [135-145 135 mEq/L mEq/L] (11/02/16 2:01 PM) Potassium Lvl 4.3 mEq/L [3.5-5.1 mEq/L] (11/02/16 2:01 PM) Chloride Lvl [95-109 105 mEq/L mEq/L] (11/02/16 2:01 PM) CO2 [24-32 mEq/L] 26 mEq/L (11/02/16 2:01 PM) AGAP [10.0-20.0 8.3 mEq/L mEq/L] *LOW* (11/02/16 2:01 PM) CHEM PANEL Most recent to 1 oldest [Reference Range]: Creatinine Lvl 0.92 mg/dL [0.50-1.40 mg/dL] (11/02/16 2:01 PM) eGFR 93 mL/min/1.73m2 1 *NA* (11/02/16 2:01 PM) BUN [7-22 mg/dL] 14 mg/dL (11/02/16 2:01 PM) B/C Ratio [6-25] 15 (11/02/16 2:01 PM) Glucose Lvl [70-99 119 mg/dL mg/dL] *HI* (11/02/16 2:01 PM) Total Protein 7.7 g/dL [6.4-8.4 g/dL] (11/02/16 2:01 PM) Albumin Lvl [3.5-5.0 3.6 g/dL g/dL] (11/02/16 2:01 PM) Globulin [2.7-4.2 4.1 g/dL g/dL] (11/02/16 2:01 PM) A/G Ratio [0.7-1.6] 0.9 (11/02/16 2:01 PM) Calcium Lvl 8.8 mg/dL [8.5-10.5 mg/dL] (11/02/16 2:01 PM) ALT [0-65 unit/L] 25 unit/L (11/02/16 2:01 PM) AST [0-37 unit/L] 27 unit/L (11/02/16 2:01 PM) Alk Phos [39-136 64 unit/L unit/L] (11/02/16 2:01 PM) Bili Total [0.2-1.3 0.5 mg/dL mg/dL] (11/02/16 2:01 PM) Lipase Lvl [73-393 98 unit/L unit/L] (11/02/16 2:01 PM) 1Result Comment: The eGFR is calculated [...] oldest [Reference Range]: UA Turbidity [Clear] Clear (11/02/16 4:24 PM) UA Color [Yellow] Light Yellow *NA* (11/02/16 4:24 PM) UA pH [5.0-8.0] 5.0 (11/02/16 4:24 PM) UA Spec Grav 1.032 [<=1.030] *HI* (11/02/16 4:24 PM) UA Glucose [Negative Negative mg/dL mg/dL] *NA* (11/02/16 4:24 PM) UA Blood [Negative] Negative (11/02/16 4:24 PM) UA Ketones [Negative Negative mg/dL mg/dL] *NA* (11/02/16 4:24 PM) UA Protein [Negative Negative mg/dL mg/dL] (11/02/16 4:24 PM) UA Urobilinogen <=1.0 mg/dL [0.1-1.0 mg/dL] *NA* (11/02/16 4:24 PM) UA Bili [Negative] Negative *NA* (11/02/16 4:24 PM) UA Leuk Est Negative [Negative] (11/02/16 4:24 PM) UA Nitrite Negative [Negative] (11/02/16 4:24 PM) UA WBC [0-5 /HPF] <1 /HPF (11/02/16 4:24 PM) UA RBC [0-2 /HPF] <1 /HPF (11/02/16 4:24 PM) UA Sq Epi None Seen *NA* (11/02/16 4:24 PM) UA Mucus [None Seen Few /LPF /LPF] *NA* (11/02/16 4:24 PM) HEMATOLOGY Most recent to 1 oldest [Reference Range]: WBC [3.7-10.4 K/CMM] 6.8 K/CMM (11/02/16 2:39 PM) RBC [4.70-6.10 4.51 M/CMM M/CMM] *LOW* (11/02/16 2:39 PM) Hgb [14.0-18.0 g/dL] 13.6 g/dL *LOW* (11/02/16 2:39 PM) Hct [42.0-54.0 %] 40.4 % *LOW* (11/02/16 2:39 PM) MCV [80.0-94.0 fL] 89.5 fL (11/02/16 2:39 PM) MCH [27.0-31.0 pg] 30.1 pg (11/02/16 2:39 PM) MCHC [32.0-36.0 33.6 g/dL g/dL] (11/02/16 2:39 PM) RDW [11.5-14.5 %] 15.0 % *HI* (11/02/16 2:39 PM) Platelet [133-450 255 K/CMM K/CMM] (11/02/16 2:39 PM) MPV [7.4-10.4 fL] 6.7 fL *LOW* (11/02/16 2:39 PM) Segs [45.0-75.0 %] 63.3 % (11/02/16 2:39 PM) Lymphocytes 21.6 % [20.0-40.0 %] (11/02/16 2:39 PM) Monocytes [2.0-12.0 7.8 % %] (11/02/16 2:39 PM) Eosinophils [0.0-4.0 7.0 % %] *HI* (11/02/16 2:39 PM) Basophils [0.0-1.0 0.3 % %] (11/02/16 2:39 PM) Segs-Bands # 4.3 K/CMM [1.5-8.1 K/CMM] (11/02/16 2:39 PM) Lymphocytes # 1.5 K/CMM [1.0-5.5 K/CMM] (11/02/16 2:39 PM) Monocytes # [0.0-0.8 0.5 K/CMM K/CMM] (11/02/16 2:39 PM) Eosinophils # 0.5 K/CMM [0.0-0.5 K/CMM] (11/02/16 2:39 PM) Basophils # [0.0-0.2 0.0 K/CMM K/CMM] (11/02/16 2:39 PM) Immunizations No data available for this [...]
--- OUTSIDE RECORDS SUMMARY | 2018-05-20 10:39 | XMS REPORT | Summary of Care ---
Author Author [facility] Organization [facility] Address Unknown Phone Unavailable Encounter MAXWELL Guzman(ALVIN) [id number] Date(s): 11/13/16 - 11/13/16 [facility] [address] [place] [address]- [phone] Discharge Diagnosis: Drug-seeking behavior Discharge Diagnosis: Chronic back pain Discharge Disposition: Home or Self Care Attending Physician: Mimi Hines DO Vital Signs Most recent to 1 2 oldest [Reference Range]: Height 170.18 cm (11/13/16 6:27 PM) Temperature Oral 97.5 DegF 98.7 DegF [96.4-99.1 DegF] (11/13/16 10:37 PM) (11/13/16 6:27 PM) Blood Pressure 155/84 mmHg 148/97 mmHg [90-140/60-90 mmHg] *HI* *HI* (11/13/16 10:37 PM) (11/13/16 6:27 PM) Respiratory Rate 16 BRMIN 18 BRMIN [14-20 BRMIN] (11/13/16 10:37 PM) (11/13/16 6:27 PM) Peripheral Pulse 48 bpm 67 bpm Rate [60-100 bpm] *LOW* (11/13/16 6:27 PM) (11/13/16 10:37 PM) Weight 90.909 kg (11/13/16 6:27 PM) Body Mass Index 31.39 m2 (11/13/16 6:27 PM) Problem List Condition Effective Dates Status Health Status Informant Back Resolved problem(Confirmed) Cancer of Resolved colon(Confirmed) Allergies, Adverse Reactions, Alerts Substance Reaction Severity Status NKDA Active penicillin Active Medications Flexeril 10 mg oral tablet 10 mg, PO, TID, PRN Muscle Spasm, X 10 day, # 30 tab, 0 Refill(s) Start Date: 11/13/16 Stop Date: 11/23/16 Status: Ordered morphine Sulfate 4 mg, 1 mL, Route: IM, Drug form: SOLN, ONCE, Dosing Weight 90.909, kg, Priority : STAT, Start date: 11/13/16 19:39:00 CDT, Stop date: 11/13/16 19:39:00 CDT Notes: (Same as:MORPhine Sulfate) Start Date: 11/13/16 Stop Date: 11/13/16 Status: Completed Otto 7.5/325 oral tablet 1 tab, Route: PO, Drug Form: TAB, Dosing Weight 90.909, kg, ONCE, STAT, Start da te: 11/13/16 20:54:00 CDT, Stop date: 11/13/16 20:54:00 CDT Notes: Same as Otto 325-7.5mg Do not exceed 4gm/day of acetaminophen. Start Date: 11/13/16 Stop Date: 11/13/16 Status: Completed Tylenol with Codeine #3 oral tablet 1 - 2 tab, PO, Q4H, PRN Pain, X 2 day, # 20 tab, 0 Refill(s) Start Date: 11/13/16 Stop Date: 11/15/16 Status: Completed Valium 10 mg, 2 tab, Route: PO, Drug form: TAB, ONCE, Dosing Weight 90.909, kg, Priorit y: STAT, Start date: 11/13/16 19:39:00 CDT, Stop date: 11/13/16 19:39:00 CDT Notes: (Same as: Valium) Start Date: 11/13/16 Stop Date: 11/13/16 Status: Completed Zofran ODT 4 mg, 1 tab, Route: PO, Drug form: TABDIS, ONCE, Dosing Weight 90.909, kg, Prior ity: STAT, Start date: 11/13/16 19:40:00 CDT, Stop date: 11/13/16 19:40:00 CDT Notes: (Same as: Zofran ODT) Start Date: 11/13/16 Stop Date: 11/13/16 Status: Completed Results No data available for [...]
--- OUTSIDE RECORDS SUMMARY | 2018-05-20 10:39 | XMS REPORT | Summary of Care ---
Author Author [facility] Organization [facility] Address Unknown Phone Unavailable Encounter MAXWELL Guzman(FIN) [id number] Date(s): 08/03/17 - 08/03/17 [facility] [address] [place] [address]- [phone] Discharge Disposition: Home or Self Care Attending Physician: Dayanna Christian TRIAGE LICENSED PRACTICAL NURSE Vital Signs Most recent to 1 2 [...]
--- OUTSIDE RECORDS SUMMARY | 2018-05-20 10:39 | XMS REPORT | Summary of Care ---
Author Author [facility] Organization [facility] Address Unknown Phone Unavailable Encounter MAXWELL Guzman(FIN) [id number] Date(s): 08/15/17 - 08/15/17 [facility] [address] [place] [address]- [phone] Discharge Disposition: Home or Self Care Attending Physician: Dayanna Christian POLO COACH Vital Signs Most recent to 1 oldest [Reference Range]: Height 167.64 cm (08/15/17 8:44 AM) Temperature Oral 98.5 DegF [96.4-99.1 DegF] (08/15/17 8:44 AM) Blood Pressure 142/86 mmHg [90-140/60-90 mmHg] *HI* (08/15/17 8:44 AM) Respiratory Rate 17 BRMIN [14-20 BRMIN] (08/15/17 8:44 AM) Peripheral Pulse 86 bpm Rate [60-100 bpm] (08/15/17 8:44 AM) Weight 102.045 kg (08/15/17 8:44 AM) Body Mass Index 36.31 m2 (08/15/17 8:44 AM) Problem List Condition Effective Dates Status Health Status Informant Arthritis(Confirmed) Resolved Back Resolved problem(Confirmed) Depression(Confirmed Resolved ) H/O: < 03/26/09 Resolved stroke(Confirmed) H/O Resolved osteoporosis(Confirm ed) Hypertension(Confirm Resolved ed) Cancer of Resolved colon(Confirmed) Morbid Active obesity(Confirmed) Allergies, Adverse Reactions, Alerts Substance Reaction Severity Status penicillin Active Medications albuterol 90 mcg/inh inhalation aerosol 2 puff, INHALATION, Q4H, PRN for wheezing, # 9 gm, 10 Refill(s) Start Date: 08/15/17 Status: Ordered amitriptyline 25 mg oral tablet 25 mg=1 tab, PO, Bedtime, # 30 tab, 2 Refill(s) Start Date: 08/15/17 Status: Ordered aspirin 81 mg tablet, enteric coated 81 mg=1 tab, PO, Daily, # 90 tab, 11 Refill(s) Start Date: 08/15/17 Status: Ordered baclofen 10 mg oral tablet 5 mg=0.5 tab, PO, TID, 2 Refill(s) Start Date: 08/15/17 Status: Ordered cyclobenzaprine 5 mg oral tablet 5 mg=1 tab, PO, TID, # 42 tab, 0 Refill(s) Start Date: 08/15/17 Stop Date: 08/29/17 Status: Ordered diazepam 5 mg oral tablet 5 mg=1 tab, PO, BID, 3 Refill(s) Start Date: 08/15/17 Status: Ordered diclofenac sodium 1% topical cream See Instructions, Apply to to areas 4 times daily., 2 Refill(s) Start Date: 08/15/17 Status: Ordered gabapentin 600 mg oral tablet 600 mg=1 tab, PO, TID, # 90 tab, 1 Refill(s) Start Date: 08/15/17 Status: Ordered Humulin R 100 units/mL injectable solution 5 unit, SUB-Q, QAM & PM, 0 Refill(s) Start Date: 08/15/17 Stop Date: 08/29/17 Status: Ordered Lotemax 0.5% ophthalmic suspension 1 drp, BOTH EYES, QID, # 5 mL, 2 Refill(s) Start Date: 08/15/17 Status: Ordered Maxitrol ophthalmic suspension 1 drp, OPTH, QID, # 5 ml, 2 Refill(s) Start Date: 08/15/17 Status: Ordered metFORMIN 500 mg oral tablet, extended release 500 mg=1 tab, PO, Dinner, # 90 tab, 0 Refill(s), Pharmacy: [facility]/pharmacy #[id number] Start Date: 08/16/17 Status: Ordered methocarbamol 500 mg oral tablet 500 mg=1 tab, PO, QID, 0 Refill(s) Start Date: 08/15/17 Status: Ordered MethylPREDNISolone Dose Pack 4 mg oral tablet See Instructions, PO, Daily, Use as directed on label., # 1 Pack, 2 Refill(s) Start Date: 08/15/17 Stop Date: 08/21/17 Status: Ordered pantoprazole 40 mg oral enteric coated tablet 40 mg=1 tab, PO, Daily, # 30 tab, 2 Refill(s) Start Date: 08/15/17 Status: Ordered promethazine 25 mg oral tablet See Instructions, 12.5 mg take 0.5 tablets, po, q6h, prn for vomiting and nause a, 0 Refill(s) Start Date: 08/15/17 Status: Ordered SUMAtriptan 100 mg oral tablet 100 mg=1 tab, PO, BID, 2 Refill(s) Start Date: 08/15/17 Status: Ordered tamsulosin 0.4 mg oral capsule 0.4 mg=1 cap, PO, Daily, # 30 cap, 11 Refill(s) Start Date: 08/15/17 Status: Ordered venlafaxine 150 mg oral capsule, extended release 150 mg=1 cap, PO, Breakfast, # 30 cap, 1 Refill(s) Start Date: 08/15/17 Status: Ordered Viagra 100 mg oral tablet 100 mg=1 tab, PO, PRN, 11 Refill(s) Start Date: 08/15/17 Status: Ordered Results No data available for [...] Reg Smoking Cessation Counseling Yes entered on: 08/15/17 Assessment and Plan No data available for this section
--- OUTSIDE RECORDS SUMMARY | 2018-05-20 10:40 | XMS REPORT | Summary of Care ---
Author Author [facility] Organization [facility] Address Unknown Phone Unavailable Encounter HQ Thomas(ALVIN) [id number] Date(s): 06/22/17 - 06/22/[address] [address]- Encounter Diagnosis Chronic back pain (Discharge Diagnosis) - 06/22/17 Low back pain (Final) - 06/28/17 Other chronic pain (Final) - Pain in left leg (Final) - Personal history of other malignant neoplasm of large intestine (Final) - Discharge Disposition: Home or Self Care Attending Physician: Shree Santoro MD Vital Signs Most recent to 1 2 oldest [Reference Range]: Height 172.72 cm (06/22/17 6:37 PM) Temperature Oral 98.6 DegF 98.8 DegF [96.4-99.1 DegF] (06/22/17 10:05 PM) (06/22/17 6:37 PM) Blood Pressure 158/95 mmHg 160/91 mmHg [90-140/60-90 mmHg] *HI* *HI* (06/22/17 10:05 PM) (06/22/17 6:37 PM) Respiratory Rate 18 BRMIN [14-20 BRMIN] (06/22/17 6:37 PM) Peripheral Pulse 102 bpm 113 bpm Rate [60-100 bpm] *HI* *HI* (06/22/17 10:05 PM) (06/22/17 6:37 PM) Weight 83.864 kg (06/22/17 6:37 PM) Body Mass Index 28.11 m2 (06/22/17 6:37 PM) Problem List Condition Effective Dates Status Health Status Informant Arthritis(Confirmed) Resolved Back Resolved problem(Confirmed) Depression(Confirmed Resolved ) H/O: < 03/26/09 Resolved stroke(Confirmed) H/O Resolved osteoporosis(Confirm ed) Hypertension(Confirm Resolved ed) Cancer of Resolved colon(Confirmed) Morbid Active obesity(Confirmed) Allergies, Adverse Reactions, Alerts Substance Reaction Severity Status penicillin Active Medications ketOROLAC 60 mg, 2 mL, Route: IM, Drug form: INJ, ONCE, Dosing Weight 83.864, kg, Priority : STAT, Start date: 06/22/17 18:46:00 CDT, Stop date: 06/22/17 18:46:00 CDT Notes: (Same as:Toradol) IV bolus must be given >15 seconds. Give IM administration slowly and deeply into the muscle.Not for use > 4 days MEDICATION WASTE Product Size: 60 mgProduct Wasted: ___ mg Start Date: 06/22/17 Stop Date: 06/22/17 Status: Completed orphenadrine 60 mg, 2 mL, Route: IM, Drug form: INJ, ONCE, Dosing Weight 83.864, kg, Priority : STAT, Start date: 06/22/17 18:43:00 CDT, Stop date: 06/22/17 18:43:00 CDT Start Date: 06/22/17 Stop Date: 06/22/17 Status: Completed Robaxin 500 mg oral tablet 1,000 mg=2 tab, PO, TID, X 7 day, # 20 tab, 0 Refill(s) Start Date: 06/22/17 Stop Date: 06/29/17 Status: Completed tramadol 50 mg oral tablet 50 mg=1 tab, PO, BID, X 15 day, # 30 tab, 0 Refill(s) Start Date: 06/22/17 Stop Date: 07/07/17 Status: Completed Results No data available for [...]
--- OUTSIDE RECORDS SUMMARY | 2018-05-20 10:40 | XMS REPORT | Summary of Care ---
Author Author [facility] Organization [facility] Address Unknown Phone Unavailable Encounter HQ Thomas(FIN) [id number] Date(s): 06/11/17 - 06/11/[address] [address]- Encounter Diagnosis Lumbar stenosis (Discharge Diagnosis) - 06/11/17 Spinal stenosis, lumbar region without neurogenic claudication (Final) - 06/18/17 Discharge Disposition: Home or Self Care Attending Physician: Edenilson Sanchez DO Vital Signs Most recent to 1 2 oldest [Reference Range]: Height 180.34 cm (06/11/17 4:29 PM) Temperature Oral 98 DegF 98.9 DegF [96.4-99.1 DegF] (06/11/17 10:52 PM) (06/11/17 4:29 PM) Blood Pressure 149/79 mmHg 155/92 mmHg [90-140/60-90 mmHg] *HI* *HI* (06/11/17 10:52 PM) (06/11/17 4:29 PM) Respiratory Rate 18 BRMIN 18 BRMIN [14-20 BRMIN] (06/11/17 10:52 PM) (06/11/17 4:29 PM) Peripheral Pulse 88 bpm 90 bpm Rate [60-100 bpm] (06/11/17 10:52 PM) (06/11/17 4:29 PM) Weight 92.773 kg (06/11/17 4:29 PM) Body Mass Index 28.53 m2 (06/11/17 4:29 PM) Problem List Condition Effective Dates Status Health Status Informant Arthritis(Confirmed) Resolved Back Resolved problem(Confirmed) Depression(Confirmed Resolved ) H/O: < 03/26/09 Resolved stroke(Confirmed) H/O Resolved osteoporosis(Confirm ed) Hypertension(Confirm Resolved ed) Cancer of Resolved colon(Confirmed) Morbid Active obesity(Confirmed) Allergies, Adverse Reactions, Alerts Substance Reaction Severity Status penicillin Active Medications Flexeril 10 mg oral tablet 10 mg=1 tab, PO, TID, PRN for spasm, # 30 tab, 0 Refill(s) Start Date: 06/11/17 Stop Date: 06/11/17 Status: Completed ketOROLAC 60 mg, 2 mL, Route: IM, Drug form: INJ, ONCE, Dosing Weight 92.773, kg, Priority : STAT, Start date: 06/11/17 16:32:00 CDT, Stop date: 06/11/17 16:32:00 CDT Notes: (Same as:Toradol) IV bolus must be given >15 seconds. Give IM administration slowly and deeply into the muscle.Not for use > 4 days MEDICATION WASTE Product Size: 60 mgProduct Wasted: ___ mg Start Date: 06/11/17 Stop Date: 06/11/17 Status: Completed Medrol Dosepak 4 mg oral tablet See Instructions, PO, Take by mouth as directed on label., # 1 Pack, 0 Refill(s) Start Date: 06/11/17 Stop Date: 07/20/17 Status: Discontinued Solu-MEDROL 125 mg, 2 mL, Route: IM, Drug form: INJ, ONCE, Dosing Weight 92.773, kg, Priorit y: STAT, Start date: 06/11/17 20:30:00 CDT, Stop date: 06/11/17 20:30:00 CDT Notes: (Same as:Solu-MEDROL, A-Methapred) Start Date: 06/11/17 Stop Date: 06/11/17 Status: Completed Tylenol with Codeine #3 oral tablet 1 - 2 tab, PO, Q6H, PRN Pain, X 4 day, # 32 tab, 0 Refill(s) Start Date: 06/11/17 Stop Date: 06/15/17 Status: Completed Results No data available for [...]
[2018-05-20] MEDS ORDERED: DEXAMETHASONE SOD PHOS 10 MG/1 ML VIAL IV ONE (11:30)
[2018-05-20] MEDS ORDERED: KETOROLAC TROMETHAMINE 60 MG/2 ML VIAL IM ONE (11:30)
--- NOTE | 2018-05-20 12:41 | Diagnostic Imaging Report ---
Exam: Lumbar spine AP lateral oblique History: Back pain Comparison: June 17, 2017 Findings: Fusion of L4 through the pelvis with bilateral transpedicular screws at L4 and L5 and left screw at S1. Screws bridging the sacroiliac joint. Prior decompression at L4-L5 and L5-S1 with interbody cage at L4-L5. No hardware loosening. Prior L5-S1 cage removed. Impression: No acute osseous abnormality L4 pelvic fusion. No complication. Signed by: Dr. Heriberto Savage M.D. on 05/20/2018 12:38 PM
== END 2018-05-20 12:53 | disposition home or self-care (01) ==
LOC: ER 10:32
DX: M54.5 Low back pain (principal); G89.29 Other chronic pain; M54.32 Sciatica, left side; Z93.3 Colostomy status; Z85.038 Personal history of other malignant neoplasm of large intestine; Z98.1 Arthrodesis status; F41.9 Anxiety disorder, unspecified
CPT/HCPCS: 72110; 99283; J1100; J1885

== ENCOUNTER 2019-11-04 14:29 | Emergency (ER) | payer OTHER ==
[~2019-11-04] VITALS: Ht 170.2 cm; Wt 100.2 kg
[2019-11-04] MEDS ORDERED: NITROGLYCERIN 2% OINT 1 GM PKT ONE (14:54)
[2019-11-04] MEDS ORDERED: ASPIRIN 81 MG CHEW TAB PO ONE (15:00)
[2019-11-04] MEDS ORDERED: ONDANSETRON HCL INJ 2MG/ML 2ML 2 MG/ML VIAL IV PRN (15:00)
[2019-11-04] MEDS ORDERED: FAMOTIDINE 20 MG/2 ML VIAL IV ONE (15:00)
[2019-11-04] MEDS ORDERED: NITROGLYCERIN 2% OINT 1 GM PKT TOP ONE (15:00)
--- NOTE | 2019-11-04 15:20 | Emergency Department Note ---
History of Present Illnes History of Present Illness History of Present Illness This is a 59 year old male Past Medical History Cancer, Anxiety Other Medical History CHRONIC BACK PAIN COLOSTOMY COLON CA Past Surgical History: Back Surgery, Colon Resection Other Surgery COLOSTOMY LUMBAR hernia repair r shoulder . Historian: Patient Arrival Mode: Car Radio Interference Expert Required: No Onset (how long ago): hour(s) Radiation: Reports back Severity: moderate Onset quality: gradual Duration (how long): hour(s) Timing of current episode: intermittent Progression: worsening Relieving factors: none Exacerbating factors: none Associated symptoms: Reports denies other symptoms Treatments prior to arrival: none Past Medical/Family History Physician Review I have reviewed the patient's past medical and family history. Any updates have been documented here. Past Medical History Recent Fever: No Clinical Suspicion of Infectio: No New/Unexplained Change in Ment: No Past Medical History: Cancer, Anxiety Other Medical History: CHRONIC BACK PAIN COLOSTOMY COLON CA Past Surgical History: Back Surgery, Colon Resection Other Surgery: COLOSTOMY LUMBARECTOMY hernia repair r shoulder Social History Smoking Cessation: Never Smoker Any Illegal Drug Use: No TB Exposure/Symptoms: No Physically hurt or threatened: No Family History Family history of heart diseas: No Other Last Tetanus: UTD Any Pre-Existing Lines (PICC,: No Review of Systems Review of Systems Constitutional: Reports as per HPI, Reports weakness EENTM: Reports no symptoms Cardiovascular: Reports as per HPI, Reports chest pain Respiratory: Reports no symptoms Gastrointestinal: Reports no symptoms Genitourinary: Reports no symptoms Musculoskeletal: Reports no symptoms Integumentary: Reports no symptoms Neurological: Reports no symptoms Psychological: Reports no symptoms Endocrine: Reports no symptoms Hematological/Lymphatic: Reports no symptoms Physical Exam Related Data Allergies: Coded Allergies: ketorolac (Verified Allergy, Intermediate, rapid heart rate, 11/04/19) can take ibuprofen and advil Vital signs reviewed: Yes Physical Exam CONSTITUTIONAL Constitutional: Present well-developed, Present well-nourished, Present obese HENT HENT: Present normocephalic, Present atraumatic, Present oropharynx clear/moist, Present nose normal HENT L/R: Present left ext ear normal, Present right ext ear normal EYES Eyes: Reports PERRL, Reports conjunctivae normal NECK Neck: Present ROM normal PULMONARY Pulmonary: Present effort normal, Present breath sounds normal CARDIOVASCULAR Cardiovascular: Present regular rhythm, Present heart sounds normal, Present capillary refill normal, Present normal rate GASTROINTESTINAL Abdominal: Present soft, Present nontender, Present bowel sounds normal, Pres ent other (LLQ colostomy bag) GENITOURINARY Genitourinary: Present exam deferred SKIN Skin: Present warm, Present dry MUSCULOSKELETAL Musculoskeletal: Present ROM normal NEUROLOGICAL Neurological: Present alert, Present oriented x 3, Present no gross motor or sensory deficits PSYCHOLOGICAL Psychological: Present mood/affect normal, Present judgement normal Results Laboratory Lab results reviewed: Yes Laboratory comments Trop I normal Imaging Imaging results reviewed: Yes Imaging Comments no acute Procedures 12 Lead ECG Interpretation ECG Interpretation : ECG: ECG 1 Radio Interference Expert: Interpreted by ED physician Date: Nov 04, 2019 Time: 14:34 Prior ECG tracings: reviewed Rhythm: sinus rhythm Rate: normal BPM: 88 QRS axis: normal Conduction: incomplete RBBB T wave inversion: V2 T waves flattening: V3 Clinical Impression: abnormal ECG Assessment & Plan Medical Decision Making [facility] Reassessment Reassessment doing better, refuses to be admitted Assessment & Plan Final Impression: (1) Chest pain in adult Depart Disposition: HOME, SELF-halfway Meds Active Scripts Gabapentin (GABAPENTIN) 300 Mg Capsule, 300 MG PO BID, #60 CAP Prov:DONALD NUÑEZ MD 11/04/19 Metoprolol Succinate (METOPROLOL SUCCINATE) 50 Mg Tab.er.24h, 50 MG PO DAILY, #30 MG Prov:DONALD NUÑEZ MD 11/04/19 Diazepam (DIAZEPAM) 5 Mg Tablet, 5 MG PO Daily PRN for ANXIETY, #15 TAB Prov:DONALD NUÑEZ MD 11/04/19 Physician Attestation Provider Attestation patient declines admission as he has to go a the next day to give a eulogy. DONALD NUÑEZ MD Nov 04, 2019 15:20
--- NOTE | 2019-11-04 15:34 | Diagnostic Imaging Report ---
EXAMINATION: CXR 1 [facility] INDICATION: Hypertension, chest pain COMPARISON: None FINDINGS: LINES/TUBES:EKG leads overlie the chest. LUNGS:The lungs are well-inflated. No focal consolidation or pulmonary edema. PLEURA:No pleural effusion or pneumothorax. MEDIASTINUM:The cardiomediastinal silhouette appears normal in size and shape. BONES/SOFT TISSUES:No acute osseous injury. ABDOMEN:No free air under the diaphragm. IMPRESSION: No focal pneumonia or pulmonary edema. Signed by: Onel Asencio MD on 11/04/2019 3:30 PM
[2019-11-04] MEDS ORDERED: GABAPENTIN300 MG PO (15:44)
[2019-11-04] MEDS ORDERED: METOPROLOL SUCC50 MG PO (15:44)
[2019-11-04] MEDS ORDERED: DIAZEPAM5 MG PO (15:44)
--- OUTSIDE RECORDS SUMMARY | 2019-11-04 15:48 | XMS REPORT | Clinical Summary ---
Author Author [facility] Organization [facility] Address Unknown Phone Unavailable Care Team Providers Care Wage Analyst Name Role Phone [place] Abdullahi MD PCP Allergies Comments Active Allergy Reactions Severity Noted Date Burning and nausea Ketorolac Other 02/23/2019 Penicillins Nausea and 09/02/2018 Vomiting Tramadol 02/10/2019 Medications End Date Status Medication Sig Dispensed Refills Start Date Active venlafaxine HCl (EFFEXOR Take by 0 OR) mouth. Active atorvastatin (LIPITOR) 20 Take 1 tablet 90 tablet 1 mg tabletIndications: by mouth at 9 Mixed bedtime hypercholesterolemia and nightly. hypertriglyceridemia Active fenofibrate Take 1 tablet 90 tablet 1 nanocrystallized (TRICOR) by mouth 9 48 mg tabletIndications: daily. Mixed hypercholesterolemia and hypertriglyceridemia Additional Information Patient not taking. Reported on 03/14/2019 8:19 AM Active ergocalciferol (VITAMIN Take 1 12 capsule 0 D2) 50,000 unit capsule by 9 capsuleIndications: mouth weekly. Vitamin D deficiency Additional Information Patient not taking. Reported on 03/14/2019 8:19 AM Active tiZANidine (ZANAFLEX) 4 Take 1 tablet 90 tablet 0 mg tabletIndications: by mouth 9 Chronic bilateral low every 6 hours back pain with bilateral as needed for sciatica, Polyarthralgia, Muscle Spasms Fall, initial encounter (back pain) May cause DROWSINESS. Active diazePAM (VALIUM) 5 mg TK 1 T PO BID 0 01/17/ 01 tablet 9 Active gabapentin (NEURONTIN) Take 1 90 capsule 0 300 mg capsule daily 9 capsuleIndications: for 1 week. Chronic bilateral low You may back pain with bilateral increase the sciatica dose to 1 capsule twice daily if needed.. Active dicyclomine (BENTYL) 10 Take 10 mg by 0 mg capsule mouth. 0 Active promethazine (PHENERGAN) Take 25 mg by 0 04/03 25 mg tablet mouth. 0 Active tamsulosin (FLOMAX) 0.4 TK 1 C PO D 0 mg extended release 9 capsule Active venlafaxine (EFFEXOR XR) TK 1 C PO D 0 03/22 150 mg extended release WITH LAMIN 9 capsule 01/01/2019 Discontinued (Therapy comple pamela) celecoxib (CELEBREX) 100 Take 100 mg 0 07/19 mg capsule by mouth. 9 01/01/2019 Discontinued (Therapy comple pamela) clindamycin (CLEOCIN) 300 0 mg capsule 9 01/01/2019 Discontinued (Reorder) gabapentin (NEURONTIN) Take 1 90 capsule 1 300 mg capsule daily 9 capsuleIndications: for 1 week. Chronic midline back You may pain, unspecified back increase the location dose to 1 capsule twice daily if needed.. 01/13/2019 Discontinued (Reorder) acetaminophen-codeine Take 1-2 0 12/31/19 1 (TYLENOL #3) 300-30 mg tablets by 9 per tablet mouth. 01/13/2019 Discontinued (Alternate ther apy) diazePAM (VALIUM) 5 mg TK 1 T PO BID 0 01 tablet 9 01/01/2019 Discontinued (Other) XARELTO 20 mg tablet TAKE 1 TABLET 0 BY MOUTH 9 EVERY DAY IN THE EVENING. (START AFTER COMPLETING THE 15 MG TWICE A DAY) 01/01/2019 Discontinued (Therapy comple pamela) tiZANidine (ZANAFLEX) 4 TK 1 T PO BID 0 mg tablet PRN 9 01/01/2019 Discontinued (Reorder) tiZANidine (ZANAFLEX) 4 Take 1 tablet 90 tablet 0 mg tabletIndications: by mouth 9 Chronic bilateral low every 6 hours back pain with bilateral as needed for sciatica, Polyarthralgia, Muscle Spasms Fall, initial encounter (back pain) May cause DROWSINESS. 01/01/2019 Discontinued (Reorder) gabapentin (NEURONTIN) Take 1 90 capsule 0 300 mg capsule capsule daily 9 for 1 week. You may increase the dose to 1 capsule twice daily if needed.. 01/13/2019 Discontinued (Reorder) gabapentin (NEURONTIN) Take 1 90 capsule 0 300 mg capsule daily 9 capsuleIndications: for 1 week. Chronic bilateral low You may back pain with bilateral increase the sciatica, Polyarthralgia, dose to 1 Fall, initial encounter capsule twice daily if needed.. 02/13/2019 Discontinued (Reorder) gabapentin (NEURONTIN) Take 1 90 capsule 0 300 mg capsule daily 9 capsuleIndications: for 1 week. Chronic bilateral low You may back pain with bilateral increase the sciatica, Polyarthralgia, dose to 1 Fall, initial encounter capsule twice daily if needed.. 02/13/2019 Discontinued (Reorder) acetaminophen-codeine Take 1 tablet 40 tablet 0 (TYLENOL #3) 300-30 mg by mouth 9 per tabletIndications: every 6 hours Chronic bilateral low as needed for back pain with bilateral up to 31 days sciatica, Polyarthralgia for Pain. 02/13/2019 Discontinued (Error) HYDROcodone-acetaminophen TK 1 T PO TID 0 12/25 (NORCO) 10-325 mg tablet PRN P 9 03/14/2019 Discontinued (Reorder) gabapentin (NEURONTIN) Take 1 90 capsule 0 300 mg capsule daily 9 capsuleIndications: for 1 week. Chronic bilateral low You may back pain with bilateral increase the sciatica, Polyarthralgia dose to 1 capsule twice daily if needed.. 03/14/2019 Discontinued (Reorder) acetaminophen-codeine Take 1 tablet 40 tablet 0 (TYLENOL #3) 300-30 mg by mouth 9 per tabletIndications: every 6 hours Chronic bilateral low as needed for back pain with bilateral up to 31 days sciatica, Polyarthralgia for Pain. 03/14/2019 Discontinued (Reorder) gabapentin (NEURONTIN) Take 1 90 capsule 0 300 mg capsule daily 9 capsuleIndications: for 1 week. Chronic bilateral low You may back pain with bilateral increase the sciatica dose to 1 capsule twice daily if needed.. 04/14/2019 acetaminophen-codeine Take 1 tablet 40 tablet 0 (TYLENOL #3) 300-30 mg by mouth 9 per tabletIndications: every 6 hours Chronic bilateral low as needed for back pain with bilateral up to 31 days sciatica for Pain. Additional Information Patient not taking. Reported on 04/07/2019 10:49 AM Status Hospital, Clinic, or Ordered Dose Route Frequency Start End Date Other Facility Date Administered Medication Ended ketorolac (TORADOL) 30 mg IM ONCE 01/02/20 injection 30 19 9 mgIndications: Chronic bilateral low back pain with bilateral sciatica, Polyarthralgia, Fall, initial encounter Active Problems Problem Noted Date Low back pain with sciatica 04/22/2019 Narcotic dependence 04/22/2019 At risk for abuse of opiates 04/22/2019 Drug-seeking behavior 04/07/2019 Chronic bilateral low back pain with bilateral sciati ca 03/14/2019 Back pain with history of spinal surgery 03/14/2019 Polyarthralgia 03/14/2019 Mixed hyperlipidemia 02/13/2019 Encounters Care Team Description Date Type Specialty Lauro Celaya MD Chronic bilateral low back pain with joel ateral sciatica (Primary Dx); Back pain with history of spinal surgery 05/04/2019 Emergency Emergency Medicine [place] Abdullahi MD Low back pain with sciatica, sciatica la terality unspecified, unspecified back pain laterality, unspecified chronicity (Primary Dx); Narcotic dependence; At risk for abuse of opiates; Dietary counseling for Above / Below Normal BMI; Exercise counseling for Above Normal BMI Only! 04/21/2019 Office Visit Family Practice Wilder Cross MD Chronic bilateral low back pain with joel ateral sciatica (Primary Dx); Drug-seeking behavior; Pain management contract broken 04/07/2019 Office Visit Family Practice Jason Turner MD Chronic bilateral low back pain with joel ateral sciatica (Primary Dx); Back pain with history of spinal surgery; Spinal cord cysts 03/14/2019 Office Visit Family Practice Fer Patel MD Mixed hyperlipidemia (Primary Dx); Chronic bilateral low back pain with bilateral sciatica; Polyarthralgia 02/13/2019 Office Visit Family Practice [place] Abdullahi MD Chronic bilateral low back pain with joel ateral sciatica; Polyarthralgia 02/03/2019 Refill Family Practice Maria Esther Howell NP Chronic bilateral low back pain with joel ateral sciatica; Polyarthralgia; Fall, initial encounter 01/23/2019 Refill Family Practice [place] Abdullahi MD Zare-Mehrjerdi, Mohammad, MD Well adult health check (Primary Dx); Chronic bilateral low back pain with bilateral sciatica; Polyarthralgia; Fall, initial encounter; Encounter for vaccination 01/13/2019 Office Visit Family Practice Maria Esther Howell G, [employer] Chronic bilateral low back pain with joel ateral sciatica (Primary Dx); Polyarthralgia; Fall, initial encounter 01/01/2019 Same Day Family Practice after 11/03/2018 Immunizations Name Administration Dates Next Due DTP Diphtheria, Tetanus, 03/26/2016 Pertussis Vaccine DTap<INFANRIX> 03/26/2016 Influenza <Unspecified> 12/24/2018, 12/24/2016 Influenza, Injectable, 10/25/2015 Quadrivalent, Preservative Free Influenza, 01/13/2019 (Deferred: Patie nt already had this Vaccine<FLUCELVAX>(Multi- immunization - Received at [facility] per Dose) pt) PCV 13 (Pnuemococcal 03/26/2016, 04/15/2015 Conjugated 13 Valent) Zoster Vaccine (Shingrix) 01/13/2019 (Deferred: Melba ent already had this immunization - Received at [facility] per pt), 09/02/2018 (Deferred: Patient Refu sed) Family History Relation Name Status Comments Father 12/1986 Mother 04/1987 Social History Date Tobacco Use Types Packs/Day Years Used Never Smoker Smokeless Tobacco: Never Used Tobacco Cessation: Counseling Given: No Drinks/Week oz/Week Comments Alcohol Use Not Currently Food Insecurity Answer Date Recorded Within the past 12 months, you worried that your Never feli e 09/02/2018 food would run out before you got money to buy more. Within the past 12 months, the food you bought Never true 09/02/2018 just didn't last and you didn't have mo carlito to get more. Sex Assigned at Date Recorded Not on file Industry Job Start Date Occupation Not on file Not on file Not on file Travel End Travel History Travel Start No recent travel history available. Last Filed Vital Signs Reading Time Taken Comments Vital Sign 151/89 05/04/2019 1:05 PM COMMUNICATION CONSULTANT Blood Pressure 79 05/04/2019 1:05 PM COMMUNICATION CONSULTANT Pulse 36.6 C (97.9 F) 05/04/2019 1:05 PM COMMUNICATION CONSULTANT Temperature 18 05/04/2019 1:05 PM COMMUNICATION CONSULTANT Respiratory Rate 100% 05/04/2019 1:05 PM COMMUNICATION CONSULTANT Oxygen Saturation - - Inhaled Oxygen Concentration 93.8 kg (206 lb 11.2 oz) 05/04/2019 12:19 PM COMMUNICATION CONSULTANT Weight 170.2 cm (5' 7") 04/21/2019 9:52 AM COMMUNICATION CONSULTANT Height 32.37 04/21/2019 9:52 AM COMMUNICATION CONSULTANT Body Mass Index Plan of Treatment Health Maintenance Due Date Last Done Comments Colorectal Cancer Scrn 10/09/2019 10/08/2018 Annual (FIT/FOBT) Age 50 to 75 IMM Influenza Seasonal 12/25/2019 12/24/2018, Dec to May (>/= 19 yrs) 12/24/2016, 10/25/2015 Procedures Comments Procedure Name Priority Date/Time Associated Diag nosis URINE DRUG SCREEN Routine 04/07/2019 Chronic bila teral low 4:15 PM COMMUNICATION CONSULTANT back pain with bilateral sciatica LIPID PROFILE Routine 02/13/2019 Mixed hyperlipi demia 11:16 AM COMMUNICATION CONSULTANT after 11/03/2018 Results * Urine Drug Screen (04/07/2019 4:15 PM COMMUNICATION CONSULTANT) Opiate, Ur Positive (A) Negative [facility] Comment: LABORATORY Calibrated Standard: Morphine Positive if urine level > or = 300 ng/dL Amphetamine Negative Negative [facility] Comment: LAB[facility]ATORY Calibrated Standard: D-Methamphetamine Positive if urine level > or = 1000 ng/mL Barbiturate Negative Negative [facility] Comment: LAB[facility]ORY Calibrated Standard: Secobarbital Positive if urine level is > or = 200 ng/mL Benzodiazepine Positive (A) Negative [facility] Comment: LAB[facility] Calibrated Standard: Lormethazepam Positive if urine level is > or = 200 ng/mL Cocaine Negative Negative [facility] Comment: LAB[facility]ORY Calibrated Standard: Benzoylecgonine Positive if urine level > or = 300 ng/dL PCP Negative Negative [facility] Comment: LAB[facility]ATORY Calibrated Standard: Phencyclidine Positive if urine level > or = 25 ng/dL Cannabinoid Negative Negative [facility] Comment: LAB[facility]ATORY Calibrated Standard: 11 nor-delta(9)-THC carboxylic acid Positive if urine level > or = 50 ng/mL Specimen Urine - Voided, urine Performing Organization Address [facility] [place] one Number [facility] [address] [place] [address] * Lipid Profile (02/13/2019 11:16 AM COMMUNICATION CONSULTANT) Cholesterol 248.0 (H) <=200.0 mg/dL [facility] Triglyceride 249 (H) <150 mg/dL [facility] HDL 38.0 See Reference Range [facility] Narrative. mg/dL LABORATORY LDL 160 (H) <100 mg/dL [facility] Comment: LABORAT[facility] Optimal: < 100.0 mg/dL Near Optimal: 120-129 mg/dL Borderline: 130-159 mg/dL High: 160-189 mg/dL Very High: >=190 mg/dL Patient NoComment: pt drank a coke [facility] Fasting? LABORATORY Specimen Blood Narrative Performed At Patient is not fasting. For a triglyceride result gre ater than 440 mg/dL, [facility] consider re-testing when the patient is in a fasting state. Performing Organization Address [facility] one Number [facility] [address] [place] [address] after 11/03/2018 Insurance Type Payer Benefit Subscriber ID Effective Phone Address Plan / Dates Group [employer] O [facility] xxxxxxxxx [facility]-P [address] [id number] [place] [address]
--- OUTSIDE RECORDS SUMMARY | 2019-11-04 15:48 | XMS REPORT | Continuity of Care Document ---
Author Author [facility] Address [address] [place] [address] ;ext= Care Team Providers Care Security Director Name Role Phone RAUHUT, MARGO ROCHA Admphys Unavailable RAUHUT, MEDANNI ROCHA Attphys Unavailable NONE, AVAILABLE PCP Unavailable Hospital Admission Diagnosis Code Admission Diagnosis Date [id number] Hip pain Social History Element Description Code Description Smoking Status Code System Start Date End Date Smoking Status [id number] Never smoker SNOMED-CT Problems Code Code System Problem Name Start Date End Date S tatus 01522312 SNOMED-CT Sprain of hip 02/13/2017 Active 07739829 SNOMED-CT Hip pain 02/13/2017 Active 56910031 SNOMED-CT Dental caries 05/03/2016 Active 880229118 SNOMED-CT Low back pain 04/26/2016 Active 779634394 SNOMED-CT Backache Unknown Active 10070677 SNOMED-CT Chronic pain Unknown Active Medications RxNorm Medication Dose Route Instructions Indication s Start Date End Date Status 731215 Ibuprofen 600 MG Oral Tablet 600 milligram Oral orally every 8 hours as needed. (; do not exceed 4 doses in a 24 hour period) pain Active 037214 Acetaminophen 300 MG / Codeine Phosphate 30 MG Oral Ta blet 1 tablet Oral orally every 6 hours as needed. (as needed for pain) No Longer Active 008974 Clindamycin 300 MG Oral Capsule 300 milligram Oral orally 4 times per day No Longer Active 07738 gabapentin 400 milligram Oral orally 3 times per day No Longer Active Allergies Code Code System Allergy Substance Type Reaction Severity Start Da te End Date Status 7986 RXNorm Penicillins Drug allergy Unknown Active Results Radiology Results Order: [id number] XR HIP 2-3 VIEWs W AP PELVIS* Exam Completion Date:02/13/2017 16:36 Procedure: XR HIP 2-3 VIEWs W AP PELVIS Ordering Provider: CORBIN Elderinical Indication: pain s/p fallComparison: NoneFindings: No acute displ aced fracture or dislocation.L4-S1 spinal fusion. Lower lumbar spine facet arthr opathy.Multiple small metallic densities are probably from hernia repair on the leftside.Impression: No acute fracture or dislocation of the left hip.This f inal report was electronically signed by Dr Rafa Santillan MD 02/13/20175:30 PMD ictated By: RAFA SANTILLANDate: 02/13/2017 17:36 Vital Signs Vitals Value Date Body Temperature 97.8 F 02/13/2017 Respiratory Rate 17 02/13/2017 O2% BldC Oximetry 97 02/13/2017 BP Systolic 154 mmHg 02/13/2017 BP Diastolic 95 mmHg 02/13/2017 Height 68 in 02/13/2017 Weight Measured 220.46 lbs 02/13/2017 BSA (Body Surface Area) 2.25394 02/13/2017 BMI (Body Mass Index) 33.7 02/13/2017 Plan of Care * No data in the system Procedures Code Code System Procedure Name Target Site Date of Proce dure XR HIP 2-3 VIEWs W AP PELVIS 02/13/2017 17:36 Encounters Date Code Diagnosis Status (ICD10) - V55856L UNSPECIFIED SPRAIN LEFT HIP INITIAL Acti ve Immunizations Vaccine Code Code System Vaccine Name Date Status 88 CVX influenza virus vaccine, NOS Completed INFLUENZA 2016 Completed PNEUMOCOCCAL 2016 Completed Functional Status Code Functional/Cognitive Condition Code System Date Status [id number] Orientated SNOMED-CT 02/13/2017 Active 741573781 Mentally alert SNOMED-CT 02/13/2017 Active 517045761 Ability to perform activities of everyda y life (observable entity) SNOMED-CT 02/13/2017 Active Hospital Discharge Instructions * Discharge Instructions 2* Discharge Diagnosis* back pain * Important Information* Consult your physician or return to the Emergency Department immediately if worse, if not better as expected, or if any problems arise. * Follow Up Care* Yes * Important Information* Please understand that you have received care only on an emergency basis. If your condition does not improve, you should call your personal physician for follow-up care. If you do not have a physician, you may call the referred physician listed. * If you have questions about your care or these discharge instructions, you may call the Emergency Department. Please take your discharge paperwork with you to any follow-up appointments. * Follow Up Care* Patient To Schedule * Follow-Up With:* Primary Care Physician * Follow-Up Notes:* follow up with your pain management and primary physician in 1-2 days * Activity Level* As tolerated, unrestricted * Diet* Diabetic * Prescriptions Given Via:* N/A * Patient Teaching* Patient education provided * Disease Process * Change in Care * Procedures/Treatments * Pain Control * Activities
--- OUTSIDE RECORDS SUMMARY | 2019-11-04 15:48 | XMS REPORT | Clinical Summary ---
Author Author [facility] Address Unknown Phone Unavailable Care Team Providers Care Lens Matcher Name Role Phone Asked, No Pcp PCP Unavailable Allergies Comments Active Allergy Reactions Severity Noted Date Penicillin GI 05/07/2017 Intolerance Burning and nausea Ketorolac Other (See 02/23/2019 Comments) Tramadol Palpitations Low 08/26/2016 Medications End Date Status Medication Sig Dispensed Refills Start Date Active diclofenac (VOLTAREN) 1 % Apply 1 2 01/24 gel application 7 topically 4 (four) times a day as needed for pain. Active venlafaxine XR Take 75 mg by 3 (EFFEXOR-XR) 75 MG 24 hr mouth daily 8 capsule with breakfast. Active HYDROcodone-acetaminophen TAKE ONE (1) 0 /0 (NORCO) 10-325 mg per TABLET(S) BY 9 tablet MOUTH THREE TIMES A DAY. Active gabapentin (NEURONTIN) Take 600 mg 1 100 mg capsule by mouth 3 9 (three) times a day. 09/26/2019 Discontinued (Discontinued b y another clinician) traMADol (ULTRAM) 50 mg Take 50 mg by 0 tablet mouth every 6 8 (six) hours as needed for pain. for pain 09/26/2019 Discontinued (Discontinued b y another clinician) tiZANidine (ZANAFLEX) 4 0 MG tablet 9 09/26/2019 Discontinued (Discontinued b y another clinician) sildenafil (VIAGRA) 50 MG Take 50 mg by 0 02/0 tablet mouth. 9 09/26/2019 Discontinued keTOROlac (TORadol) 10 mg Take 10 mg by 0 /1 tablet mouth. 9 09/27/2019 Discontinued (Reorder) diazePAM (VALIUM) 5 MG Take 5 mg by 2 03/08/2 01 tablet mouth 2 (two) 9 times a day. 11/15/2018 Discontinued acetaminophen-codeine 0 (TYLENOL WITH CODEINE #3) 9 300-30 mg per tablet 11/25/2018 sulfamethoxazole-trimetho Take 2 14 tablet 0 prim (BACTRIM DS) 800-160 tablets by 9 mg per tablet mouth 2 (two) times a day for 10 days. smx-tmp DS (BACTRIM) 800-160 mg tabs (1tab q12 D10) 11/25/2018 cephalexin (KEFLEX) 250 Take 2 60 capsule 0 MG capsule capsules (500 9 mg total) by mouth 3 (three) times a day for 10 days. 11/17/2018 acetaminophen-codeine Take 1-2 15 tablet 0 10/25 (TYLENOL WITH CODEINE #3) tablets by 9 300-30 mg per tablet mouth every 6 (six) hours as needed for moderate pain for up to 2 days. 01/30/2019 acetaminophen-codeine Take 1-2 12 tablet 0 10/0 (TYLENOL WITH CODEINE #3) tablets by 9 300-30 mg per mouth every 6 tabletIndications: acute (six) hours pain as needed for moderate pain or severe pain for up to 12 doses .Acute Pain. 03/02/2019 acetaminophen-codeine Take 1-2 9 tablet 0 12/0 (TYLENOL WITH CODEINE #3) tablets by 9 300-30 mg per mouth every 6 tabletIndications: acute (six) hours pain as needed for moderate pain for up to 7 days .Acute Pain. 10/28/2019 aspirin (ECOTRIN) 325 MG Take 1 tablet 30 tablet 0 enteric coated tablet (325 mg 0 total) by mouth daily for 30 days. 10/11/2019 diazePAM (VALIUM) 5 MG Take 1 tablet 28 tablet 0 0 tablet (5 mg total) 0 by mouth 2 (two) times a day for 14 days. 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 Iron deficiency anemia 05/09/2017 Hyperlipidemia 05/09/2017 Weakness of left lower extremity 05/08/2017 Sciatica of left side 05/07/2017 Encounters Care Team Description Date Type Specialty Tarik Witt MD Chest pain, unspecified type (Primary Dx ) 11/03/2019 Emergency Emergency Medicine 11/03/2019 Travel Tarik Witt MD Perera, Bhooshan Manuja, MD Chest pain, unspecified type (Primary Dx ) 09/26/2019 Emergency General Internal Me dicine - 09/27/2019 Kyree Hinkle MD Chest pain at rest (Primary Dx) 08/29/2019 Emergency Emergency Medicine 08/29/2019 Travel Oziel Ching MD Chronic back pain, unspecified back loca tion, unspecified back pain laterality (Primary Dx) 04/30/2019 Emergency Emergency Medicine Eleazar Slade MD 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 (Primary Dx); Lumbar radiculopathy 04/07/2019 Emergency Emergency Medicine Socrates Stephens MD Generalized abdominal pain (Primary Dx) 02/23/2019 Emergency Emergency Medicine Oziel Ching MD 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 (Primary Dx); Drug-seeking behavior 02/03/2019 Emergency Emergency Medicine Stew Rios MD 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 (Primary Dx) 01/03/2019 Emergency Emergency Medicine - 01/04/2019 Eleazar Slade MD Chronic low back pain with sciatica, sci atica laterality unspecified, unspecified back pain laterality (Primary Dx) 12/29/2018 Emergency Emergency Medicine - 12/30/2018 Stew Rios MD PrasannaTom MD Lymphadenitis (Primary Dx) 11/15/2018 Emergency Emergency Medicine after 11/03/2018 Family History Medical History Relation Name Comments Diabetes Brother Heart disease Father Diabetes Mother Diabetes Sister Relation Name Status Comments Brother Father Mother Sister Social History Date Tobacco Use Types Packs/Day Years Used Never Smoker Smokeless Tobacco: Never Used Drinks/Week oz/Week Comments Alcohol Use quit 8 years ago Not Currently Sex Assigned at Date Recorded Not on file Industry Job Start Date Occupation Not on file Not on file Not on file Travel End Travel History Travel Start No recent travel history available. Date Recorded COVID-19 Exposure Response 11/03/2019 8:01 PM CDT In the last month, have you been in contact with No / Unsure someone who was confirmed or suspected to have Coronavirus / COVID-19? Last Filed Vital Signs Reading Time Taken Comments Vital Sign 173/93 11/03/2019 10:26 PM CDT Blood Pressure 93 11/03/2019 10:26 PM CDT Pulse 37.1 C (98.7 F) 11/03/2019 7:42 PM CDT Temperature 17 11/03/2019 10:26 PM CDT Respiratory Rate 97% 11/03/2019 10:26 PM CDT Oxygen Saturation - - Inhaled Oxygen Concentration 104 kg (230 lb) 11/03/2019 7:42 PM CDT Weight 172.7 cm (5' 8") 11/03/2019 7:42 PM CDT Height 34.97 11/03/2019 7:42 PM CDT Body Mass Index Plan of Treatment Health Maintenance Due Date Last Done Comments COLONOSCOPY SCREENING 08/26/2011 SHINGLES VACCINES (#1) 08/26/2011 INFLUENZA VACCINE 10/25/2019 12/24/2018, 12/24/2016 Procedures Comments Procedure Name Priority Date/Time Associated Diag nosis TROPONIN Routine 11/03/2019 9:25 PM CDT XR CHEST 1 VW PORTABLE STAT 11/03/2019 8:10 PM CDT ESTIMATED GFR STAT 11/03/2019 7:55 PM CDT B NATRIURETIC PEPTIDE STAT 11/03/2019 7:55 PM CDT TROPONIN STAT 11/03/2019 7:55 PM CDT CREATINE KINASE, TOTAL STAT 11/03/2019 (CPK) 7:55 PM CDT COMPREHENSIVE METABOLIC STAT 11/03/2019 PANEL 7:55 PM CDT PARTIAL THROMBOPLASTIN STAT 11/03/2019 TIME (PTT) 7:55 PM CDT PROTHROMBIN TIME WITH INR STAT 11/03/2019 7:55 PM CDT CBC WITH PLATELET AND STAT 11/03/2019 DIFFERENTIAL 7:55 PM CDT ECG ED PRELIMINARY Routine 11/03/2019 INTERPRETATION 7:40 PM CDT ESTIMATED GFR Routine 09/27/2019 5:44 AM CDT COMPREHENSIVE METABOLIC Routine 09/27/2019 PANEL 5:44 AM CDT HC COMPLETE BLD COUNT Routine 09/27/2019 W/AUTO DIFF 5:44 AM CDT ECG 12-LEAD Routine 09/27/2019 12:46 AM CDT ECG 12-LEAD Routine 09/26/2019 9:07 PM CDT TROPONIN Timed 09/26/2019 9:00 PM CDT COVID-19 QUALITATIVE PCR Routine 09/26/2019 6:34 PM CDT TROPONIN Timed 09/26/2019 5:55 PM CDT XR CHEST 1 VW PORTABLE STAT 09/26/2019 3:50 PM CDT CREATINE KINASE, TOTAL STAT 09/26/2019 (CPK) 2:45 PM CDT ESTIMATED GFR STAT 09/26/2019 2:45 PM CDT B NATRIURETIC PEPTIDE STAT 09/26/2019 2:45 PM CDT TROPONIN STAT 09/26/2019 2:45 PM CDT COMPREHENSIVE METABOLIC STAT 09/26/2019 PANEL 2:45 PM CDT HC COMPLETE BLD COUNT STAT 09/26/2019 W/AUTO DIFF 2:45 PM CDT ECG ED PRELIMINARY Routine 09/26/2019 INTERPRETATION 2:37 PM CDT ECG 12-LEAD STAT 09/26/2019 2:26 PM CDT ECG ED PRELIMINARY Routine 08/29/2019 INTERPRETATION 3:57 PM CDT XR CHEST 1 VW PORTABLE STAT 08/29/2019 3:00 PM CDT ESTIMATED GFR STAT 08/29/2019 2:28 PM CDT HC COMPLETE BLD COUNT STAT 08/29/2019 W/AUTO DIFF 2:28 PM CDT BASIC METABOLIC PANEL STAT 08/29/2019 2:28 PM CDT TROPONIN Timed 08/29/2019 1:26 PM CDT ECG 12-LEAD STAT 08/29/2019 1:16 PM CDT MRI LUMBAR SPINE W WO STAT 04/30/2019 CONTRAST 12:14 PM SPECIAL EDUCATION PARAEDUCATOR URINALYSIS SCREEN AND Routine 04/30/2019 MICROSCOPY, WITH REFLEX 10:00 AM SPECIAL EDUCATION PARAEDUCATOR TO CULTURE URINE CULTURE Routine 04/30/2019 10:00 AM SPECIAL EDUCATION PARAEDUCATOR ESTIMATED GFR STAT 04/30/2019 8:20 AM SPECIAL EDUCATION PARAEDUCATOR HC COMPLETE BLD COUNT STAT 04/30/2019 W/AUTO DIFF 8:20 AM SPECIAL EDUCATION PARAEDUCATOR LIPASE LEVEL STAT 04/30/2019 8:20 AM SPECIAL EDUCATION PARAEDUCATOR HEPATIC FUNCTION PANEL STAT 04/30/2019 8:20 AM SPECIAL EDUCATION PARAEDUCATOR BASIC METABOLIC PANEL STAT 04/30/2019 8:20 AM SPECIAL EDUCATION PARAEDUCATOR URINALYSIS SCREEN AND STAT 04/07/2019 MICROSCOPY, WITH REFLEX 5:01 PM SPECIAL EDUCATION PARAEDUCATOR TO CULTURE URINE CULTURE STAT 04/07/2019 5:01 PM SPECIAL EDUCATION PARAEDUCATOR ESTIMATED GFR STAT 04/07/2019 4:10 PM SPECIAL EDUCATION PARAEDUCATOR HC COMPLETE BLD COUNT STAT 04/07/2019 W/AUTO DIFF 4:10 PM SPECIAL EDUCATION PARAEDUCATOR COMPREHENSIVE METABOLIC STAT 04/07/2019 PANEL 4:10 PM SPECIAL EDUCATION PARAEDUCATOR MRI LUMBAR SPINE WO STAT 04/07/2019 CONTRAST 3:28 PM SPECIAL EDUCATION PARAEDUCATOR US SCROTAL STAT 02/23/2019 2:57 PM SPECIAL EDUCATION PARAEDUCATOR URINALYSIS SCREEN AND Routine 02/23/2019 MICROSCOPY, WITH REFLEX 12:59 PM SPECIAL EDUCATION PARAEDUCATOR TO CULTURE URINE CULTURE Routine 02/23/2019 12:59 PM SPECIAL EDUCATION PARAEDUCATOR CT ABDOMEN PELVIS W STAT 02/23/2019 CONTRAST 12:13 PM SPECIAL EDUCATION PARAEDUCATOR ESTIMATED GFR STAT 02/23/2019 10:00 AM SPECIAL EDUCATION PARAEDUCATOR LIPASE LEVEL STAT 02/23/2019 10:00 AM SPECIAL EDUCATION PARAEDUCATOR AMYLASE LEVEL STAT 02/23/2019 10:00 AM SPECIAL EDUCATION PARAEDUCATOR COMPREHENSIVE METABOLIC STAT 02/23/2019 PANEL 10:00 AM SPECIAL EDUCATION PARAEDUCATOR HC COMPLETE BLD COUNT STAT 02/23/2019 W/AUTO DIFF 10:00 AM SPECIAL EDUCATION PARAEDUCATOR ECG ED PRELIMINARY Routine 02/23/2019 INTERPRETATION 9:56 AM SPECIAL EDUCATION PARAEDUCATOR ECG 12-LEAD Routine 02/23/2019 9:52 AM SPECIAL EDUCATION PARAEDUCATOR CT LUMBAR SPINE WO STAT 02/03/2019 CONTRAST 12:57 PM SPECIAL EDUCATION PARAEDUCATOR after 11/03/2018 Results * Troponin (11/03/2019 9:25 PM CDT) Only the most recent of 6 results within the time period is included. Troponin <0.006 0.000 - 0.040 ng/mL [place] Comment: [facility] In patients suspected of [facility] [place] having a myocardial infarction, along with all other appropriate clinical measures and actions including ECG and other diagnostics as appropriate, measure Ultra TnI at 0 hrs and at 3 hrs. Myocardial infarction VERY LIKELY The 0 hr TnI level is > 0.10 ng/mL Myocardial infarction LIKELY The 0 hr TnI level is > 0.04 ng/mL and 3 hr level is increased or decreased by at least 0.020 ng/mL Myocardial infarction VERY UNLIKELY Both the 0 hr and 3 hr TnI levels <= 0.04 ng/mL(within normal limits) OR 0 hr is > 0.04 ng/mL and 3 hr is increased OR decreased by less than 0.020 ng/mL Specimen Blood Performing Organization Address City/[facility] Ph one Number [facility] DEPARTMENT [place] [id number] [place] [address] [place], [place] [address] PATHOLOGY AND GENOMIC MEDICINE [place] [facility] [place] [id number] [address] [place] [id number] [facility] [place] * XR Chest 1 Vw Portable (11/03/2019 8:10 PM CDT) Only the most recent of 3 results within the time period is included. Specimen Narrative Performed At EXAMINATION: XR CHEST 1 VW PORTABLE [facility] CLINICAL HISTORY: 59 years Male chest pain COMPARISON: September 25 IMPRESSION: The cardiomediastinal silhouette is not enlarged The lungs are clear The osseous structures are within shanika l limits. . . Procedure Note Interface, Radiology Results Incoming - 11/03/2019 8:14 PM CDT EXAMINATION: XR CHEST 1 VW PORTABLE CLINICAL HISTORY: 59 years Male chest pain COMPARISON: September 25 IMPRESSION: The cardiomediastinal silhouette is not enlarged The lungs are clear The osseous structures are within normal limits. . . Performing Organization Address City/State[facility] Ph one Number [facility] [address] [place] [address] * Estimated GFR (11/03/2019 7:55 PM CDT) Only the most recent of 7 results within the time period is included. Pathologist [facility] Estimated GFR >=90 mL/min/1.73 m2 [place] Comment: [facility] Interpretation G1 >=90 Normal or high G2 60-89 Mildly decreased G3a 45-59 Mildly to moderately decreased G3b 30-44 Moderately to severely decreased G4 15-29 Severely decreased G5 <15 Kidney failure The eGFR was calculated using the Chronic Kidney Disease Epidemiology Collaboration (CKD-EPI) equation. Interpretation is based on recommendations of the National Kidney Foundation-Kidney Disease Outcomes Quality Initiative (NKF-KDOQI) published in 2014. Specimen Performing Organization Address [facility] one Number [facility] DEPARTMENT OF [address] [place] [address] [place] [address] PATHOLOGY AND GENOMIC MEDICINE [address] * Partial thromboplastin time, activated (11/03/2019 7:55 PM CDT) Pathologist [facility] PTT 27.9 23.0 - 36.0 sec [place] Comment: [facility] PTT therapeutic range for [facility] [place] unfractionated heparin is 61.0-112.0 seconds which corresponds to Anti-Xa 0.3-0.7 U/ml. Specimen Blood Performing Organization Address [facility] one Number [facility] DEPARTMENT OF [address] [place] [address] [place] [address] PATHOLOGY AND [facility] MEDICINE [address] * Prothrombin time with INR (11/03/2019 7:55 PM CDT) Pathologist [facility] Prothrombin 12.4 11.5 - 14.5 sec [facility] INR 0.9 [place] Comment: [facility] The International Normalized [facility] [place] Ratio (INR) is a therapeutic monitoring tool for patients who are stable on oral anticoagulant therapy. An INR of 2.0-3.0 is suggested for deep vein thrombosis/pulmonary embolism. Specimen Blood Performing Organization Address [facility] one Number [facility] DEPARTMENT OF [address] [place] [address] [place] [address] PATHOLOGY AND [facility] MEDICINE [address] * CBC with platelet and differential (11/03/2019 7:55 PM CDT) Only the most recent of 7 results within the time period is included. Pathologist [facility] WBC 8.53 4.50 - 11.00 k/uL [facility] RBC 4.74 4.40 - 6.00 m/uL [facility] HGB 15.1 14.0 - 18.0 g/dL [facility] HCT 43.4 41.0 - 51.0 % [facility] MCV 91.6 82.0 - 100.0 fL [facility] MCH 31.9 27.0 - 34.0 pg [facility] MCHC 34.8 31.0 - 37.0 g/dL [facility] RDW - SD 42.0 37.0 - 55.0 fL [facility] MPV 9.6 8.8 - 13.2 fL [facility] Platelet count 251 150 - 400 k/uL [facility] Nucleated RBC 0.00 /100 WBC [facility] Neutrophils 67.7 39.0 - 69.0 % [facility] Lymphocytes 19.1 (L) 25.0 - 45.0 % [facility] Monocytes 7.4 0.0 - 10.0 % [facility] Eosinophils 2.9 0.0 - 5.0 % [facility] Basophils 0.6 0.0 - 1.0 % [facility] Specimen Blood Performing Organization Address City/[facility] Ph one Number [facility] DEPARTMENT [address] [place], [place] [address] PATHOLOGY AND GENOMIC MEDICINE [address] * B natriuretic peptide (11/03/2019 7:55 PM CDT) Only the most recent of 2 results within the time period is included. BNP 7 0 - 100 pg/mL [facility] Specimen Blood Performing Organization Address City/[facility] Ph one Number [facility] DEPARTMENT [address] [place], [place] [address] PATHOLOGY AND GENOMIC MEDICINE [address] * Creatine kinase, total (CPK) (11/03/2019 7:55 PM CDT) Only the most recent of 2 results within the time period is included. Creatine kinase 134 39 - 308 U/L [facility] Specimen Blood Performing Organization Address City/[facility] Ph one Number [facility] DE[place]MENT [place] [id number] [place] [address] [place] [address] PATHOLOGY AND GENOMIC MEDICINE [facility] [id number] [place] [address] [place] [address] [facility] [place] * Comprehensive metabolic panel (11/03/2019 7:55 PM CDT) Only the most recent of 5 results within the time period is included. Sodium 137 135 - 148 mEq/L [facility] Potassium 3.6 3.5 - 5.0 mEq/L [facility] Chloride 102 98 - 112 mEq/L [facility] CO2 22 (L) 24 - 31 mEq/L [facility] Anion gap 13@ANIO 7 - 15 mEq/L [facility] BUN 10 6 - 20 mg/dL [facility] Creatinine 0.80 0.70 - 1.20 mg/dL [facility] Glucose 105 (H) 65 - 99 mg/dL [facility] Calcium 9.9 8.3 - 10.2 mg/dL [facility] Protein 8.0 6.3 - 8.3 g/dL [place] Comment: [facility] [place] 4.6-7.0 g/dL 1 week 4.4-7.6 g/dL 7 months-1year 5.1-7.3 g/dL 1-2 years 5.6-7.5 g/dL >3 years 6.0-8.0 g/dL 18-150 6.3-8.3 g/dL Albumin 4.9 3.5 - 5.0 g/dL [facility] A/G ratio 1.6 0.7 - 3.8 [facility] Alkaline 80 40 - 129 U/L [place] phosphatase [facility] AST 17 10 - 50 U/L [facility] ALT 22 5 - 50 U/L [facility] Total bilirubin 0.4 0.0 - 1.2 mg/dL [facility] Specimen Blood Performing Organization Address City/[facility]/Zipcode Ph one Number [facility] [place] [place] [address] [place] [address] PATHOLOGY AND GENOMIC MEDICINE [facility] [id number] [place] [address] [place] [address] [facility] [place] * ECG ED Preliminary Interpretation - Not an Order (11/03/2019 7:40 PM CDT) Only the most recent of 4 results within the time period is included. Narrative Performed At Tarik Witt MD 11/04/2019 11:16 AM ECG ED Preliminary Interpretation - Not an Order Performed by: Tarik Witt MD Authorized by: Tarik Witt MD ECG reviewed by ED Physician in the abs ence of a reversal print inspector: yes Interpretation: Interpretation: normal Rate: ECG rate: 89 ECG rate assessment: normal Rhythm: Rhythm: sinus rhythm Ectopy: Ectopy: none QRS: QRS axis: Normal QRS intervals: Normal Conduction: Conduction: abnormal Abnormal conduction: incomplete RBBB ST segments: ST segments: Normal T waves: T waves: normal * ECG 12 lead (09/27/2019 12:46 AM CDT) Only the most recent of 5 results within the time period is included. Ventricular 90 [facility] rate Atrial rate 90 [facility] VA interval 158 [facility] QRSD interval 94 [facility] QT interval 398 [facility] QTC interval 486 [facility] P axis 1 51 [facility] QRS axis 1 -24 [facility] T wave axis 45 [facility] EKG impression Normal sinus rhythm-Possible [facility] Anterolateral infarct (cited on or before 26-SEP-2019)-Abnormal ECG Left anterior fascicular block-In automated comparison with ECG of 26-SEP-2019 21:07,-No significant change was found-Incomplete right bundle branch block- Specimen Narrative Performed At This result has an attachment that is n ot available. Performing Organization Address City/State/Zipcode Ph one Number [facility] MUSE [address] [place] [address] * COVID-19 qualitative PCR (09/26/2019 6:34 PM CDT) Interpretation Negative results do not SAUL preclude 2019-nCoV infection [facility] and should not be used as the HOSPITAL sole basis for treatment or other patient management decisions. Negative results must be combined with clinical observations, patient history, and epidemiological information. COVID-19 Not-Detected Not-Detected [place] qualitative PCR [facility] COVID-19 See link below for PDF Lab [place] qualitative PCR ReportComment: Case Number: [facility] [id number] [facility] Specimen Performing Organization Address City/[facility] Ph one Number [facility] DEPARTMENT OF [address] [place] [address] PATHOLOGY AND GENOMIC MEDICINE [facility] [address] [place] [address] [facility] * Basic metabolic panel (08/29/2019 2:28 PM CDT) Only the most recent of 2 results within the time period is included. Sodium 137 135 - 148 mEq/L [facility] Potassium 4.0 3.5 - 5.0 mEq/L [facility] Chloride 101 99 - 109 mEq/L [facility] CO2 21 (L) 24 - 31 mEq/L [facility] Anion gap 15@ANIO 7 - 15 mEq/L [facility] BUN 7 (L) 8 - 24 mg/dL [facility] Creatinine 0.80 0.70 - 1.20 mg/dL [facility] Glucose 119 (H) 65 - 99 mg/dL [facility] Calcium 9.5 8.6 - 10.6 mg/dL [facility] Specimen Blood Performing Organization Address City/[facility]/Zipcode Ph one Number [facility] [place] [address] [facility] [address] [place] [address] PATHOLOGY AND GENOMIC MEDICINE [facility] [address] [place], [place] [address] [facility] * MRI Lumbar Spine W Wo Contrast (04/30/2019 12:14 PM SPECIAL EDUCATION PARAEDUCATOR) Specimen Narrative Performed At Study:MRI LUMBAR SPINE W WO CONTRAST [facility] History:back pain history of multiple surgeries and post op infection in the past as well as fluid collections. COMPARISON:April 07, 2019 TECHNIQUE: Sagittal T1, T2, STIR, axial T1, T2 MR images of the lumbar spine obtained without IV contrast.Postcontra st axial and sagittal T1 MR images also obtained. FINDINGS: The last functional disc is presumed L5 /S1 and the L5 level is marked on the sagittal T2 image number 9. Stable postoperative changes of postero lateral fusion from L4 through S1 and interbody fusion at L4-5. There is lami nectomy at the level of L5. The lumbar lordosis is maintained. There are no gerber bluxations. Vertebral body has within normal limits. No acute marrow signal abnormalities are p resent. L1-2:Mild disc height loss with shallow disc bulge. No canal foraminal stenosis. L2-3:Normal disc height without protrus ion. Mild facet arthrosis. No canal stenosis. Mild bilateral foraminal sten osis.. L3-4:Normal disc height without protrus ion. No canal stenosis. Facet arthrosis with mild left foraminal stenosis. L4-5:Posterior changes of prior interbo dy fusion. No disc protrusion. Mild facet arthrosis. No canal foraminal stenosis. L5/S1:Mild disc height loss with a shal low disc bulge. No thecal sac stenosis. No foraminal stenosis. Paravertebral soft tissues have stable postoperative change with tiny amount of fluid in the laminectomy bed and overly ing subcutaneous soft tissues from a tiny seroma. No abnormal enhancement elsewhe re. IMPRESSION: Stable postoperative changes without ca nal or foraminal stenosis. [id number] Procedure Note Hm Interface, Radiology Results Incoming - 04/30/2019 1:47 PM SPECIAL EDUCATION PARAEDUCATOR Study:MRI LUMBAR SPINE W WO CONTRAST History:back pain history of multiple surgeries and post op infection in the past as well as fluid collections. COMPARISON:April 07, 2019 TECHNIQUE: Sagittal T1, T2, STIR, axial T1, T2 MR images of the lumbar spine obtained without IV contrast.Postcontrast axial and sagittal T1 MR images also obtained. FINDINGS: The last functional disc is presumed L5/S1 and the L5 level is marked on the sagittal T2 image number 9. Stable postoperative changes of posterolateral fusion from L4 through S1 and interbody fusion at L4-5. There is laminectomy at the level of L5. The lumbar lordosis is maintained. There are no subluxations. Vertebral body has within normal limits. No acute marrow signal abnormalities are present. L1-2:Mild disc height loss with shallow disc bulge. No canal foraminal stenosis. L2-3:Normal disc height without protrusion. Mild facet arthrosis. No canal stenosis. Mild bilateral foraminal stenosis.. L3-4:Normal disc height without protrusion. No canal stenosis. Facet arthrosis with mild left foraminal stenosis. L4-5:Posterior changes of prior interbody fusion. No disc protrusion. Mild facet arthrosis. No canal foraminal stenosis. L5/S1:Mild disc height loss with a shallow disc bulge. No thecal sac stenosis. No foraminal stenosis. Paravertebral soft tissues have stable postoperative change with tiny amount of fluid in the laminectomy bed and overlying subcutaneous soft tissues from a tiny seroma. No abnormal enhancement elsewhere. IMPRESSION: Stable postoperative changes without canal or foraminal stenosis. [id number] Performing Organization Address City/[facility] Ph one Number [facility] [address] [place] [address] * Urinalysis screen and microscopy, with reflex to culture (04/30/2019 10:00 AM SPECIAL EDUCATION PARAEDUCATOR) Only the most recent of 3 results within the time period is included. Specimen site Clean catch [facility] Color, UA Yellow [facility] Appearance, UA Clear [facility] Specific 1.020 1.001 - 1.035 [place] gravity, UA [facility] pH, UA 5.0 5.0 - 8.5 [facility] Protein, UA Negative Negative [facility] Glucose, UA Negative Negative [facility] Ketones, UA Negative Negative [facility] Bilirubin, UA Negative Negative [facility] Blood, UA Negative Negative [facility] Nitrite, UA Negative Negative [facility] Urobilinogen, Negative <2.0 [facility] Leukocyte Negative Negative [place] esterase, [facility] Epithelial None seen Few /HPF [place] cells, UA [facility] Round Few 0 - 1 /HPF [place] epithelial [facility] cells, [facility] WBC, UA 0-5 0 - 1 /HPF [facility] RBC, UA 0-5 0 - 5 /HPF [facility] Bacteria, UA None seen None seen [facility] Yeast, UA None seen [facility] Yeast with None seen [place] pseudohyphae, [facility] Specimen Urine Performing Organization Address City/[facility] Ph one Number [facility] [place] [address] [place] [address] PATHOLOGY AND GENOMIC MEDICINE [facility] [id number] [place] [address] * Urine culture (04/30/2019 10:00 AM SPECIAL EDUCATION PARAEDUCATOR) Only the most recent of 3 results within the time period is included. Urine culture SEE COMMENTComment: [place] Bacteriuria screen negative. [facility] Specimen Urine Performing Organization Address City/[facility] Ph one Number [facility] [place] [id number] [place] [address] [place], [place] [address] PATHOLOGY AND GENOMIC MEDICINE [address] * Lipase level (04/30/2019 8:20 AM SPECIAL EDUCATION PARAEDUCATOR) Only the most recent of 2 results within the time period is included. Lipase 19 13 - 60 U/L [facility] Specimen Plasma specimen Performing Organization Address [facility] one Number [facility] DEPARTMENT OF [address] [place] [address]. [place] [address] PATHOLOGY AND GENOMIC MEDICINE [address] * Hepatic function panel (04/30/2019 8:20 AM SPECIAL EDUCATION PARAEDUCATOR) Albumin 4.6 3.5 - 5.0 g/dL [facility] Total bilirubin 0.2 0.0 - 1.2 mg/dL [facility] Bilirubin <0.1 0.0 - 0.3 mg/dL [place] direct [facility] Alkaline 81 40 - 129 U/L [place] phosphatase [facility] Protein 7.9 6.3 - 8.3 g/dL [place] Comment: [facility] Rkvwhlh6237.6-7.0 g/dL [facility] [place] 1 yewh0868.4-7.6 g/dL 7 months-5ktbr178.1-7.3 g/dL 1-2 nebvs698.6-7.5 g/dL >3 .0-8.0 g/dL 18-2357555.3-8.3 g/dL ALT 16 5 - 50 U/L [facility] AST 15 10 - 50 U/L [facility] Specimen Plasma specimen Performing Organization Address City/[facility] Ph one Number [facility] DEPARTMENT OF [address] [place] [address] [place] [address] PATHOLOGY AND GENOMIC MEDICINE [facility] [address] [address] [place] [address] [facility] [place] * MRI Lumbar Spine Wo Contrast (04/07/2019 3:28 PM SPECIAL EDUCATION PARAEDUCATOR) Specimen Narrative Performed At [facility] EXAMINATION: MRI LUMBAR SPINE WO CONTRA ST CLINICAL HISTORY: hx 4 back surgeries c o feeling like there is fluid back there again hx of reported infection hx CA r o cauda equina COMPARISON: CT lumbar spine from [place]inda luna 2018. TECHNIQUE: Multiplanar multisequence no ncontrast enhanced examination was performed of the Lumbar spine. FINDINGS: The distal cord ends at the L1 level an d is grossly unremarkable. The prior CT exam showed posterior fusion on the lef t from L4 to the S1 vertebral body and left iliac bone with screws connected b y vertical rods. There is posterior fusion on the right with pedicle screws at L4-L5 connected to a screw extending into the right iliac bone. There is fusion material on the C T exam in the L4-5 disc. There is a screw hole on both sides of the S1 vertebral body consistent with removal of hardware. There is laminectomy at L5 and removal of the le ft L5-S1 facet joint region. There is resection of portions of the posterior elements on the left at L4-5. There are degenerative changes of the s acroiliac joints with some vacuum density in the right joint space greater than t he left joint space and surrounding sclerosis. L5-S1: There is mild disc space narrowi ng. There is no significant canal stenosis from hypertrophic changes. The re is congenital narrowing subarachnoid space. There is a large amount of scar signal intensity in the left foramen along with osteophytic ridge in the anterior inferior left for amen with some bone density bridging across the left disc on the CT exam. Th ere is good fusion of the right posterior elements on the CT exam. There is no si gnificant right foramen stenosis from hypertrophic change. There is complete effacement of fat in the left foramen from the scar and bone hypertrophy. There is scar signal inten sity in the region of laminectomy and the posterior paraspinal soft tissues. Ther e is a small amount of proteinaceous fluid in this area as well measuring approximately 3 cm in greatest height by 8 mm in greatest AP dimension by 2.1 cm transverse dimen ofelia. L4-5: There is bulge. There is no signi ficant central canal stenosis. There are hypertrophic changes with mild foramen narrowing. L3-4: There is bulge and posterior epid ural fat with mild narrowing of the AP dimension of the central subarachnoid s pace. There are facet hypertrophic changes and mild to moderate left and m ild right inferior foramen stenosis. L2-3: There is greater posterior disc s pace narrowing. There is bulge and posterior epidural fat with mild narrow ing of the AP dimension of the central subarachnoid space. There are facet hyp ertrophic changes and mild inferior foramen narrowing. L1-2: There is bulge indenting the suba rachnoid space. There is facet hypertrophy. There is no significant ce ntral canal stenosis. There is mild foramen stenosis in part congenital in nature. The study was not performed for proper imaging of the soft tissue structures in the abdomen and pelvis. IMPRESSION: Postoperative and degenerative changes as described. There is no significant narrowing of the subarachnoid space to compress the nerve roots. There is asymmetric severe effacement of fat in the left L5-S1 foramen from scar signal intensity and some bone hypertrophy. Degenerative changes of the sacroiliac joints. [id number] Procedure Note Hm Interface, Radiology Results Incoming - 04/07/2019 3:46 PM SPECIAL EDUCATION PARAEDUCATOR EXAMINATION: MRI LUMBAR SPINE WO CONTRAST CLINICAL HISTORY: hx 4 back surgeries c o feeling like there is fluid back there again hx of reported infection hx CA r o cauda equina COMPARISON: CT lumbar spine from February 03, 2019. TECHNIQUE: Multiplanar multisequence noncontrast enhanced examination was performed of the Lumbar spine. FINDINGS: The distal cord ends at the L1 level and is grossly unremarkable. The prior CT exam showed posterior fusion on the left from L4 to the S1 vertebral body and left iliac bone with screws connected by vertical rods. There is posterior fusion on the right with pedicle screws at L4-L5 connected to a screw extending into the right iliac bone. There is fusion material on the CT exam in the L4-5 disc. There is a screw hole on both sides of the S1 vertebral body consistent with removal of hardware. There is laminectomy at L5 and removal of the left L5-S1 facet joint region. There is resection of portions of the posterior elements on the left at L4-5. There are degenerative changes of the sacroiliac joints with some vacuum density in the right joint space greater than the left joint space and surrounding sclerosis. L5-S1: There is mild disc space narrowing. There is no significant canal stenosis from hypertrophic changes. There is congenital narrowing subarachnoid space. There is a large amount of scar signal intensity in the left foramen along with osteophytic ridge in the anterior inferior left foramen with some bone density bridging across the left disc on the CT exam. There is good fusion of the right posterior elements on the CT exam. There is no significant right foramen stenosis from hypertrophic change. There is complete effacement of fat in the left foramen from the scar and bone hypertrophy. There is scar signal intensity in the region of laminectomy and the posterior paraspinal soft tissues. There is a small amount of proteinaceous fluid in this area as well measuring approximately 3 cm in greatest height by 8 mm in greatest AP dimension by 2.1 cm transverse dimension. L4-5: There is bulge. There is no significant central canal stenosis. There are hypertrophic changes with mild foramen narrowing. L3-4: There is bulge and posterior epidural fat with mild narrowing of the AP dimension of the central subarachnoid space. There are facet hypertrophic changes and mild to moderate left and mild right inferior foramen stenosis. L2-3: There is greater posterior disc space narrowing. There is bulge and posterior epidural fat with mild narrowing of the AP dimension of the central subarachnoid space. There are facet hypertrophic changes and mild inferior foramen narrowing. L1-2: There is bulge indenting the subarachnoid space. There is facet hypertrophy. There is no significant central canal stenosis. There is mild foramen stenosis in part congenital in nature. The study was not performed for proper imaging of the soft tissue structures in the abdomen and pelvis. IMPRESSION: Postoperative and degenerative changes as described. There is no significant narrowing of the subarachnoid space to compress the nerve roots. There is asymmetric severe effacement of fat in the left L5-S1 foramen from scar signal intensity and some bone hypertrophy. Degenerative changes of the sacroiliac joints. [facility]-[id number] Performing Organization Address City/State/Zipcode Ph one Number [facility] [address] [place] [address] * US Scrotal (02/23/2019 2:57 PM SPECIAL EDUCATION PARAEDUCATOR) Specimen Narrative Performed At EXAMINATION: US SCROTAL [facility] CLINICAL HISTORY: Scrotal mass or lum p COMPARISON: None. TECHNIQUE: Sonographic evaluation of the scrotum. Real-time B mode grayscale, Doppler spectral analysis and Doppler c olor flow imaging was used to assess testicular vasculature. FINDINGS: RIGHT HEMISCROTUM: The right testicle m easures 4.2 x 2.3 x 2.5 cm Testicular echogenicity is normal. No i ntratesticular masses are identified. There is normal color and duplex Dopple r flow. The right epididymis is minimally enlar ged. There is a complex moderate hydrocele. With loculated cystic areas noted just lateral to the testicle probably associ ated with the epididymis. There is no varicocele. LEFT HEMISCROTUM: The left testicle madina sures 4.1 x 2.1 x 3.0 cm. Testicular echogenicity is normal. No i ntratesticular masses are identified. There is normal color and duplex Dopple r flow. The left epididymis is unremarkable. There is minimal hydrocele. There is no varicocele. IMPRESSION: Normal scrotal ultrasound examination. [id number] Procedure Note Hm Interface, Radiology Results Incoming - 02/23/2019 3:07 PM SPECIAL EDUCATION PARAEDUCATOR EXAMINATION: US SCROTAL CLINICAL HISTORY: Scrotal mass or lump COMPARISON: None. TECHNIQUE: Sonographic evaluation of the scrotum. Real-time B mode grayscale, Doppler spectral analysis and Doppler color flow imaging was used to assess testicular vasculature. FINDINGS: RIGHT HEMISCROTUM: The right testicle measures 4.2 x 2.3 x 2.5 cm Testicular echogenicity is normal. No intratesticular masses are identified. There is normal color and duplex Doppler flow. The right epididymis is minimally enlarged. There is a complex moderate hydrocele. With loculated cystic areas noted just lateral to the testicle probably associated with the epididymis. There is no varicocele. LEFT HEMISCROTUM: The left testicle measures 4.1 x 2.1 x 3.0 cm. Testicular echogenicity is normal. No intratesticular masses are identified. There is normal color and duplex Doppler flow. The left epididymis is unremarkable. There is minimal hydrocele. There is no varicocele. IMPRESSION: Normal scrotal ultrasound examination. [id number] Performing Organization Address City/State/Zipcode Ph one Number [facility] [address] [place] [address] * CT Abdomen Pelvis W Contrast (02/23/2019 12:13 PM SPECIAL EDUCATION PARAEDUCATOR) Specimen Narrative Performed At EXAMINATION: CT ABDOMEN PELVIS W CONTRAST RL [facility] CLINICAL HISTORY: Abd pain divertic ulitis suspected TECHNIQUE: Multiple axial CT images of the abdomen and pelvis are obtained with the use of intravenous contrast. Stahl l and sagittal 3-D reconstructions are obtained. CT scans are performed using radiation dose reduction techniques. Technical factors are evaluated and adjusted to e nsure appropriate moderation of exposure. Automated dose management technology is applied to adjust radiation exposure while achieving a diagnostic quality image. COMPARISON: None. FINDINGS: Visualized lower lung zones are clear. The gallbladder is unremarkable. The CT appearance of the liver, spleen, adrenal glands and pancreas is unremarkable. The abdominal aorta has no aneurysmal d ilatation. There is no retroperitoneal adenopathy. The kidneys do not have any solid renal mass or hydronephrosis. CT Pelvis: There is no evidence of pneumoperitoneu m. An ostomy is seen in the left lower quadrant. The colon does not have any f ocal inflammatory change. Small bowel is not dilated. Minimal diverticulosis is present. There is no focal diverticulitis. The bladder is unremarkable. There is n o inguinal hernia. Nonspecific inguinal adenopathy is present. IMPRESSION: 1. Minimal diverticulosis is present. T here is no focal diverticulitis. 2. An ostomy seen in the left lower jamal drant. 3. There is no bowel obstruction nor an y dilated [id number] Procedure Note Hm Interface, Radiology Results Incoming - 02/23/2019 12:22 PM SPECIAL EDUCATION PARAEDUCATOR EXAMINATION: CT ABDOMEN PELVIS W CONTRAST CLINICAL HISTORY: Abd pain diverticulitis suspected TECHNIQUE: Multiple axial CT images of the abdomen and pelvis are obtained with the use of intravenous contrast. Coronal and sagittal 3-D reconstructions are obtained. CT scans are performed using radiation dose reduction techniques. Technical factors are evaluated and adjusted to ensure appropriate moderation of exposure. Automated dose management technology is applied to adjust radiation exposure while achieving a diagnostic quality image. COMPARISON: None. FINDINGS: Visualized lower lung zones are clear. The gallbladder is unremarkable. The CT appearance of the liver, spleen, adrenal glands and pancreas is unremarkable. The abdominal aorta has no aneurysmal dilatation. There is no retroperitoneal adenopathy. The kidneys do not have any solid renal mass or hydronephrosis. CT Pelvis: There is no evidence of pneumoperitoneum. An ostomy is seen in the left lower quadrant. The colon does not have any focal inflammatory change. Small bowel is not dilated. Minimal diverticulosis is present. There is no focal diverticulitis. The bladder is unremarkable. There is no inguinal hernia. Nonspecific inguinal adenopathy is present. IMPRESSION: 1. Minimal diverticulosis is present. Th ere is no focal diverticulitis. 2. An ostomy seen in the left lower quad rant. 3. There is no bowel obstruction nor any dilated [id number] Performing Organization Address City/[facility]/Zipcode Ph one Number HM [facility] [address] [place] [address] * Amylase level (02/23/2019 10:00 AM SPECIAL EDUCATION PARAEDUCATOR) Amylase 34 13 - 73 U/L [facility] Specimen Plasma specimen Performing Organization Address [facility] Ph one Number [facility] [place] [address] [address] [place], [place] [address] PATHOLOGY AND GENOMIC MEDICINE [facility] [address] [place] [address] [facility] [place] * CT Lumbar Spine Wo Contrast (02/03/2019 12:57 PM SPECIAL EDUCATION PARAEDUCATOR) Specimen Narrative Performed At EXAMINATION: CT LUMBAR SPINE WO CONTRAST RADIAN T CLINICAL HISTORY: pain COMPARISON: [facility] FINDINGS: Noncontrast CT of the lumbar spine is i nterpreted. CT imaging was performed with iterative reconstruction techniques and/or automated exposure control to reduce ra diation dose. Again noted is posterior fusion involvi ng L4 through the sacroiliac joints. Bilateral pedicle screws are present in each of the levels with the exception of S1 where there is a unilateral screw on the left. No hardware failure loosening is seen. Vertebral heights are preserved. No dis placed fracture aggressive bone lesion is identified. L1-2: Minimal disc degenerative changes . Slight disc bulge. L2-3: Minimal disc degenerative changes . Mild bilateral facet arthrosis. L3-4: Prominent bilateral facet arthros is. Posterolateral bone graft without definite bridging of the facet joints. Minimal disc bulge. Mild left foraminal stenosis. Mild canal stenosis. L4-5: Interbody and posterior fusion. I nterval bridging interbody bone. Interval bridging posterior bone. Partial left f acetectomy. Mild to moderate right and mild left foraminal stenosis. L5-S1: Interbody and posterior fusion. Interval bridging interbody bone. Interval bridging posterior bone the ri ght. Left facetectomy. L5 laminectomy. No significant stenosis. Again noted are postoperative changes n oted in the posterior soft tissues. IMPRESSION: No acute abnormality lumbar spine is id entified. Again noted is estimated posterior fusi on extending from L4 through the sacroiliac joints. Again noted are inte rbody fusions of L4-5 and L5-S1. Again noted is L5 laminectomy and left L5-S1 facetectomy. Partial facetectomy is noted in the left at L4-5 as well. No significant canal or foraminal steno sis is seen. [id number] Procedure Note Hm Interface, Radiology Results Incoming - 02/03/2019 1:13 PM SPECIAL EDUCATION PARAEDUCATOR EXAMINATION: CT LUMBAR SPINE WO CONTRAST CLINICAL HISTORY: pain COMPARISON: Post myelogram CT of the lumbar spine dated to 05/08/2017. FINDINGS: Noncontrast CT of the lumbar spine is interpreted. CT imaging was performed with iterative reconstruction techniques and/or automated exposure control to reduce radiation dose. Again noted is posterior fusion involving L4 through the sacroiliac joints. Bilateral pedicle screws are present in each of the levels with the exception of S1 where there is a unilateral screw on the left. No hardware failure loosening is seen. Vertebral heights are preserved. No displaced fracture aggressive bone lesion is identified. L1-2: Minimal disc degenerative changes. Slight disc bulge. L2-3: Minimal disc degenerative changes. Mild bilateral facet arthrosis. L3-4: Prominent bilateral facet arthrosis. Posterolateral bone graft without definite bridging of the facet joints. Minimal disc bulge. Mild left foraminal stenosis. Mild canal stenosis. L4-5: Interbody and posterior fusion. Interval bridging interbody bone. Interval bridging posterior bone. Partial left facetectomy. Mild to moderate right and mild left foraminal stenosis. L5-S1: Interbody and posterior fusion. Interval bridging interbody bone. Interval bridging posterior bone the right. Left facetectomy. L5 laminectomy. No significant stenosis. Again noted are postoperative changes noted in the posterior soft tissues. IMPRESSION: No acute abnormality lumbar spine is identified. Again noted is estimated posterior fusion extending from L4 through the sacroiliac joints. Again noted are interbody fusions of L4-5 and L5-S1. Again noted is L5 laminectomy and left L5-S1 facetectomy. Partial facetectomy is noted in the left at L4-5 as well. No significant canal or foraminal stenosis is seen. [id number] Performing Organization Address City/State/Zipcode Ph one Number [facility] [address] [place] [address] after 11/03/2018 Insurance Type Payer Benefit Subscriber ID Effective Phone Address Plan / Dates Group HMO [employer] xxxxxxxxx [id number] [employer] resent [place] (Home) [place] [address] Advance Directives For more information, please contact: [phone] Patient Transfer Pumper Explanation Type Date Recorded Advance Directives, 02/03/2019 12:33 PM Living Will and Medical Power of [employer] Advance Directives, 03/06/2017 12:24 PM Living Will and Medical Power of [employer] Advance Directives, 12/30/2018 12:32 AM Living Will and Medical Power of [employer] Date Inactivated Comments Code Status Date Activated 09/27/2019 7:33 PM Full Code 09/26/2019 6:23 PM Code Status decision reached by: Patient
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
--- OUTSIDE RECORDS SUMMARY | 2019-11-04 15:48 | XMS REPORT | Clinical Summary ---
Author Author BYRON [email or web address] Address Unknown Phone Unavailable Care Team Providers Care [facility] Account Liaison Name Role Phone Pcp, No PCP Unavailable Allergies Comments Active Allergy Reactions Severity Noted Date Penicillins Diarrhea 06/06/2018 Ketorolac 08/12/2019 Tramadol 02/10/2019 Medications End Date Status Medication Sig Dispensed Refills Start Date Active gabapentin (NEURONTIN) Take 300 mg 0 300 MG capsule by mouth 3 (three) times daily. Active venlafaxine (EFFEXOR-XR) Take 150 mg 0 02/26 150 MG 24 hr capsule by mouth. 9 Active predniSONE (DELTASONE) 10 40 mg x 3 d, 45 tablet 0 MG tablet 30 mgx3d, 0 [id number], [id number]. 01/15/2019 acetaminophen-codeine Take 1-2 15 tablet 0 12/24 (TYLENOL #3) 300-30 mg tablets by 9 per tablet mouth every 6 (six) hours as needed for Pain for up to 10 days. Max Daily Amount: 8 tablets 01/05/2019 Discontinued cyclobenzaprine Take 1 tablet 20 tablet 0 01/06/20 1 (FLEXERIL) 10 MG tablet (10 mg total) 9 by mouth 2 (two) times daily as needed for Muscle spasms for up to 10 days. 02/20/2019 acetaminophen-codeine Take 1-2 15 tablet 0 01/24 (TYLENOL #3) 300-30 mg tablets by 9 per tablet mouth every 6 (six) hours as needed for Pain for up to 10 days. Max Daily Amount: 8 tablets 03/12/2019 gabapentin (NEURONTIN) Take 1 90 capsule 0 100 MG capsule capsule (100 9 mg total) by mouth 3 (three) times daily for 30 days. 03/05/2019 Discontinued acetaminophen-codeine Take 1 tablet 8 tablet 0 (TYLENOL #3) 300-30 mg by mouth 9 per tablet every 6 (six) hours as needed for Pain for up to 10 days. Max Daily Amount: 4 tablets 03/08/2019 ibuprofen (ADVIL,MOTRIN) Take 1 tablet 30 tablet 0 400 MG tablet (400 mg 9 total) by mouth every 6 (six) hours as needed for Pain for up to 10 days. 03/15/2019 acetaminophen-codeine Take 1 tablet 60 tablet 0 (TYLENOL #3) 300-30 mg by mouth 9 per tablet every 6 (six) hours as needed for Pain for up to 10 days. Max Daily Amount: 4 tablets 03/15/2019 diazePAM (VALIUM) 2 MG Take 1 tablet 20 tablet 0 1 tablet (2 mg total) 9 by mouth every 12 (twelve) hours as needed for Anxiety for up to 10 days. Max Daily Amount: 4 mg 03/17/2019 Discontinued predniSONE (DELTASONE) 10 40 mg x3d, 30 tablet 0 MG tablet [id number], 9 [id number], 82smw3k. 08/12/2019 Discontinued acetaminophen-codeine Take 1 tablet 0 (TYLENOL #3) 300-30 mg by mouth per tablet every 4 (four) hours as needed for Pain. 08/12/2019 Discontinued diazePAM (VALIUM) 5 MG Take 5 mg by 0 tablet mouth every 6 (six) hours as needed for Anxiety. 05/14/2019 acetaminophen-codeine Take 1 tablet 20 tablet 0 (TYLENOL #4) 300-60 mg by mouth 0 per tablet every 4 (four) hours as needed for up to 10 days. Max Daily Amount: 6 tablets 05/14/2019 tiZANidine (ZANAFLEX) 4 Take 1 tablet 30 tablet 0 MG tablet (4 mg total) 0 by mouth every 6 (six) hours as needed for up to 10 days. 08/12/2019 Discontinued acetaminophen-codeine Take 1 tablet 30 tablet 0 (TYLENOL #4) 300-60 mg by mouth 0 per tablet every 4 (four) hours as needed for Pain for up to 10 days. Max Daily Amount: 6 tablets 08/22/2019 acetaminophen-codeine Take 1 tablet 30 tablet 0 (TYLENOL #4) 300-60 mg by mouth 0 per tablet every 4 (four) hours as needed for Pain for up to 10 days. Max Daily Amount: 6 tablets 09/28/2019 hydrOXYzine (ATARAX) 25 Take 1 tablet 12 tablet 0 MG tablet (25 mg total) 0 by mouth every 6 (six) hours for 10 days. Active Problems Not on file Encounters Care Team Description Date Type Specialty Jazmín Andrew MD Acute bilateral low back pain with left- sided sciatica (Primary Dx) 09/18/2019 Emergency Emergency Medicine Jazmín Andrew MD Panic attack (Primary Dx); Anxiety; Chronic low back pain without sciatica, unspecified back pain laterality 08/29/2019 Emergency Emergency Medicine 08/29/2019 Orders Only General Internal Me dicine 08/29/2019 Travel Migdalia Palacios MD Acute neck pain (Primary Dx); Acute bilateral low back pain without sciatica; Fall, initial encounter 08/12/2019 Emergency Emergency Medicine 08/12/2019 Travel Isadora Brand Acute midline low back pain with left-si ded sciatica (Primary Dx); Left leg weakness 05/04/2019 Emergency Emergency Medicine Naveed Lockhart MD Acute left-sided low back pain with left -sided sciatica (Primary Dx) 04/11/2019 Emergency Emergency Medicine - 04/12/2019 Jennifer Thrasher MD Towns, Jacob Scott, MD Chronic bilateral low back pain without sciatica (Primary Dx); Severe pain; Narcotic dependence (HCC); Elevated blood pressure reading 03/17/2019 Emergency Emergency Medicine Migdalia Palacios MD Acute bilateral low back pain with left- sided sciatica (Primary Dx) 03/05/2019 Emergency Emergency Medicine Chandler Charles MD Acute bilateral low back pain with bilat eral sciatica (Primary Dx); History of lumbar fusion; Severe pain; Nausea; Fluid collection at surgical site, initial encounter 02/26/2019 Emergency Emergency Medicine Jazmín Andrew MD Strain of lumbar region, initial encount er (Primary Dx); Muscle spasm; Sciatica of left side 02/10/2019 Emergency Emergency Medicine Noah Rivera MD Chronic midline low back pain with bilat eral sciatica (Primary Dx); Hypertension, unspecified type 01/05/2019 Emergency Emergency Medicine after 11/03/2018 Social History Date Tobacco Use Types Packs/Day Years Used Never Smoker Smokeless Tobacco: Never Used Alcohol Use Drinks/Week oz/Week Comments No Alcohol Habits Answer Date Recorded How often do you have a drink containing alcohol? Never 06/06/2018 How many drinks containing alcohol do you have on No t asked a typical day when you are drinking? How often do you have six or more drinks on one Not asked occasion? Sex Assigned at Date Recorded Not on file Industry Job Start Date Occupation Not on file Not on file Not on file Travel End Travel History Travel Start No recent travel history available. Last Filed Vital Signs Time Taken Vital Sign Reading 09/18/2019 2:01 PM CDT Blood Pressure 165/74 09/18/2019 2:01 PM CDT Pulse 92 09/18/2019 2:01 PM CDT Temperature 36.7 C (98 F) 09/18/2019 2:01 PM CDT Respiratory Rate 18 09/18/2019 2:01 PM CDT Oxygen Saturation 97% - Inhaled Oxygen - Concentration 09/18/2019 1:16 PM CDT Weight 97.5 kg (215 lb) 09/18/2019 1:16 PM CDT Height 172.7 cm (5' 8") 09/18/2019 1:16 PM CDT Body Mass Index 32.69 Plan of Treatment Not on file Procedures Comments Procedure Name Priority Date/Time Associated Diag nosis REPORT OF PROCEDURE - 09/05/2019 ENDOSCOPY SCAN 3:33 PM CDT CBC W/PLT COUNT & AUTO STAT 08/29/2019 DIFFERENTIAL 11:36 AM CDT BASIC METABOLIC PANEL (7) STAT 08/29/2019 11:36 AM CDT CBC W/PLT COUNT & AUTO STAT 08/29/2019 DIFFERENTIAL 11:36 AM CDT ECG 12-LEAD Routine 08/29/2019 11:26 AM CDT Procedure Note - Interface, External Ris In - 08/29/2019 11:27 AM CDT Ventricula r Rate 79 BPM Atrial Rate 79 BPM P-R Interval 158 ms QRS Duration 94 ms Q-T Interval 394 ms QTC Calculatio n(Bazett) 451 ms P [place] 43 degrees R [place] 3 degrees T [place] 34 degrees Normal sinus rhythm Incomplete right bundle branch block Borderline ECG No previous ECGs available ECG 12-LEAD STAT 08/29/2019 11:[address] SPINE CERVICAL WITHOUT STAT 08/12/2019 IV CONTRAST 3:[address] BRAIN WITHOUT IV STAT 08/12/2019 CONTRAST 3:[address] LUMBAR SPINE WITHOUT STAT 08/12/2019 IV CONTRAST 3:05 PM CDT CBC W/PLT COUNT & AUTO STAT 08/12/2019 DIFFERENTIAL 2:25 PM CDT BASIC METABOLIC PANEL (7) STAT 08/12/2019 2:25 PM CDT CBC W/PLT COUNT & AUTO STAT 08/12/2019 DIFFERENTIAL 2:25 PM CDT URINALYSIS W/ MICROSCOPIC STAT 05/04/2019 4:54 PM [employer] XR SPINE LUMBAR COMPLETE STAT 03/05/2019 MIN 4 VIEWS 2:50 PM [employer] CBC W/PLT COUNT & AUTO STAT 02/26/2019 DIFFERENTIAL 6:12 PM [employer] BASIC METABOLIC PANEL (7) STAT 02/26/2019 6:12 PM [employer] CBC W/PLT COUNT & AUTO STAT 02/26/2019 DIFFERENTIAL 6:12 PM [employer] MR LUMBAR SPINE WITHOUT STAT 02/26/2019 IV CONTRAST 5:54 PM [employer] XR LUMBAR SPINE 2 OR 3 STAT 02/26/2019 VIEWS 4:21 PM [employer] URINALYSIS WITH STAT 02/26/2019 MICROSCOPIC IF INDICATED 2:[address] LUMBAR SPINE WITHOUT STAT 01/05/2019 IV CONTRAST 1:20 PM CDT after 11/03/2018 Results * EKG-SCANNED (09/05/2019 3:33 PM CDT) Narrative Performed At This result has an attachment that is n ot available. * CBC with platelet count + automated diff (08/29/2019 11:36 AM CDT) Only the most recent of 3 results within the time period is included. WBC 5.5 4.0 - 10.0 K/L [facility] RBC 4.11 (L) 4.20 - 5.80 M/L [facility] Hemoglobin 12.9 (L) 13.0 - 16.8 GM/DL [facility] Hematocrit 37.0 36.0 - 50.0 % [facility] MCV 90.0 82.0 - 99.0 fL [facility] MCH 31.4 27.0 - 33.0 pg [facility] MCHC 34.9 32.0 - 36.0 GM/DL [facility] RDW 14.6 12.0 - 15.0 % [facility] Platelets 188 150 - 430 K/CU MM [facility] MPV 9.2 6.0 - 11.5 fL [facility] nRBC 0 0 - 0 /100 WBC [facility] % Neutros 60 % [facility] % Lymphs 24 % [facility] % Monos 8 % [facility] % Eos 6 % [facility] % Baso 1 % [facility] # Neutros 3.30 1.80 - 8.00 K/L [facility] # Lymphs 1.33 (L) 1.48 - 4.50 K/L [facility] # Monos 0.42 0.00 - 1.30 K/L [facility] # Eos 0.31 0.00 - 0.50 K/L [facility] # Baso 0.03 0.00 - 0.20 K/L [facility] Immature 2 (H) 0 - 0 % [facility] Granulocytes-Relative Specimen Blood Performing Organization Address City/State/Zipcode Ph one Number [place] [address] [facility] [place] [address] * Basic metabolic panel (Na, K+, Cl, CO2, Glu, Ca, BUN, Cr) (08/29/2019 11:36 AM CDT) Only the most recent of 3 results within the time period is included. Sodium 141 135 - 148 meq/L [facility] Potassium 3.5 (L) 3.6 - 5.5 meq/L [facility] Chloride 107 (H) 98 - 106 meq/L [facility] CO2 22 20 - 29 meq/L [facility] BUN 8 (L) 10 - 26 mg/dL [facility] Creatinine 0.82 0.50 - 1.20 mg/dL [facility] Glucose 101 70 - 110 mg/dL [facility] Calcium 9.2 8.5 - 10.5 mg/dL [facility] EGFR 96Comment: ESTIMATED GFR IS mL/min/1.73 sq m [facility] NOT ACCURATE CREATININE CLEARANCE IN PREDICTING GLOMERULAR FILTRATION RATE. ESTIMATED GFR IS NOT APPLICABLE FOR DIALYSIS PATIENTS. Specimen Blood Narrative Performed At Professor Of Apologetics ID - [id number] [facility] Performing Organization Address City/[facility], [facility] one Number [place] [address] [facility] [place] [address] * ECG 12 lead (08/29/2019 11:26 AM CDT) Specimen Narrative Performed At Ventricular Rate 79 BPM [facility] Atrial Rate 79 BPM P-R Interval 158 ms QRS Duration 94 ms Q-T Interval 394 ms QTC Calculation(Bazett) 451 ms P [place] 43 degrees R [place] 3 degrees T [place] 34 degrees Normal sinus rhythm Incomplete right bundle branch block Borderline ECG No previous ECGs available Confirmed by Guzman Mares ([id number]) on 09/22/2019 5:44:51 PM Procedure Note Interface, External Ris In - 09/22/2019 5:45 PM CDT Ventricular Rate 79 BPM Atrial Rate 79 BPM P-R Interval 158 ms QRS Duration 94 ms Q-T Interval 394 ms QTC Calculation(Bazett) 451 ms P [place] 43 degrees R [place] 3 degrees T [place] 34 degrees Normal sinus rhythm Incomplete right bundle branch block Borderline ECG No previous ECGs available Confirmed by Guzman Mares ([id number]) on 09/22/2019 5:44:51 PM Performing Organization Address City/State/Zipcode Ph one Number [facility] * CT spine cervical without IV contrast (08/12/2019 3:05 PM CDT) Specimen Narrative Performed At FINAL REPORT [email or web address] RIS CT, BRAIN, WITHOUT CONTRAST, CT, SPINE, CERVICAL, WO CONTRAST INDICATION: Head trauma, mod-severe NECK PAIN fall TECHNIQUE: Contiguous noncontrast axial images of the head and cervical spine are obtained. Computer r eformatted coronal and sagittal images are also provided. Axia l images are available in both bone and soft tissue algorithm. DOSE REDUCTION: Dose modulation, iterat danay reconstruction, and/or weight-based adjustment of the mA/kV wa s utilized to reduce the radiation dose to as low as reasonably achievable. COMPARISON: CT head 08/24/2003 FINDINGS: HEAD: Intracranial: Exam is degraded by strea k artifact arising from the skull. No convincing intracranial hemor rhage or abnormal extra-axial collection. No evidence of acute territ orial infarct. No mass effect. No hydrocephalus. Osseous structures: No fracture. No buck picious lesion. Paranasal sinuses and mastoid air cells : No evidence of sinusitis. Mastoids are clear. Orbital contents: Globes are intact. CERVICAL SPINE: Alignment: Rightward curvature of the c ervical spine. Straightening and mild reversal of cervical lordosis. C1 and C2 lateral masses are congruent. Vertebrae: No acute fracture. The C5 an d C6 vertebral bodies are partially fused. No aggressive osseous lesion. Spondylosis: No high-grade canal or for aminal stenosis. Soft tissues: No prevertebral soft tiss ue swelling. Visualized lung apices are clear. IMPRESSION: 1.No acute intracranial hemorrhage. 2.No cervical fracture or traumatic mal alignment. Signed: Alva Dockery MD Report Verified Date/Time: 0 15:25:21 Procedure Note Interface, External Ris In - 08/12/2019 3:27 PM CDT FINAL REPORT CT, BRAIN, WITHOUT CONTRAST, CT, SPINE, CERVICAL, WO CONTRAST INDICATION: Head trauma, mod-severe NECK PAIN fall TECHNIQUE: Contiguous noncontrast axial images of the head and cervical spine are obtained. Computer reformatted coronal and sagittal images are also provided. Axial images are available in both bone and soft tissue algorithm. DOSE REDUCTION: Dose modulation, iterative reconstruction, and/or weight-based adjustment of the mA/kV was utilized to reduce the radiation dose to as low as reasonably achievable. COMPARISON: CT head 08/24/2003 FINDINGS: HEAD: Intracranial: Exam is degraded by streak artifact arising from the skull. No convincing intracranial hemorrhage or abnormal extra-axial collection. No evidence of acute territorial infarct. No mass effect. No hydrocephalus. Osseous structures: No fracture. No suspicious lesion. Paranasal sinuses and mastoid air cells: No evidence of sinusitis. Mastoids are clear. Orbital contents: Globes are intact. CERVICAL SPINE: Alignment: Rightward curvature of the cervical spine. Straightening and mild reversal of cervical lordosis. C1 and C2 lateral masses are congruent. Vertebrae: No acute fracture. The C5 and C6 vertebral bodies are partially fused. No aggressive osseous lesion. Spondylosis: No high-grade canal or foraminal stenosis. Soft tissues: No prevertebral soft tissue swelling. Visualized lung apices are clear. IMPRESSION: 1.No acute intracranial hemorrhage. 2.No cervical fracture or traumatic gage lignment. Signed: Alva Dockery MD Report Verified Date/Time: 08/12/2019 15:25:21 Performing Organization Address City/State/Zipcode Ph one Number [email or web address] RIS * CT brain without IV contrast (08/12/2019 3:05 PM CDT) Specimen Narrative Performed At FINAL REPORT [employer] CT, BRAIN, WITHOUT CONTRAST, CT, SPINE, CERVICAL, WO CONTRAST INDICATION: Head trauma, mod-severe NECK PAIN fall TECHNIQUE: Contiguous noncontrast axial images of the head and cervical spine are obtained. Computer r eformatted coronal and sagittal images are also provided. Axia l images are available in both bone and soft tissue algorithm. DOSE REDUCTION: Dose modulation, iterat danay reconstruction, and/or weight-based adjustment of the mA/kV wa s utilized to reduce the radiation dose to as low as reasonably achievable. COMPARISON: CT head 08/24/2003 FINDINGS: HEAD: Intracranial: Exam is degraded by strea k artifact arising from the skull. No convincing intracranial hemor rhage or abnormal extra-axial collection. No evidence of acute territ orial infarct. No mass effect. No hydrocephalus. Osseous structures: No fracture. No buck picious lesion. Paranasal sinuses and mastoid air cells : No evidence of sinusitis. Mastoids are clear. Orbital contents: Globes are intact. CERVICAL SPINE: Alignment: Rightward curvature of the c ervical spine. Straightening and mild reversal of cervical lordosis. C1 and C2 lateral masses are congruent. Vertebrae: No acute fracture. The C5 an d C6 vertebral bodies are partially fused. No aggressive osseous lesion. Spondylosis: No high-grade canal or for aminal stenosis. Soft tissues: No prevertebral soft tiss ue swelling. Visualized lung apices are clear. IMPRESSION: 1.No acute intracranial hemorrhage. 2.No cervical fracture or traumatic mal alignment. Signed: Alva Dockery MD Report Verified Date/Time: 0 15:25:21 Procedure Note Interface, External Ris In - 08/12/2019 3:27 PM CDT FINAL REPORT CT, BRAIN, WITHOUT CONTRAST, CT, SPINE, CERVICAL, WO CONTRAST INDICATION: Head trauma, mod-severe NECK PAIN fall TECHNIQUE: Contiguous noncontrast axial images of the head and cervical spine are obtained. Computer reformatted coronal and sagittal images are also provided. Axial images are available in both bone and soft tissue algorithm. DOSE REDUCTION: Dose modulation, iterative reconstruction, and/or weight-based adjustment of the mA/kV was utilized to reduce the radiation dose to as low as reasonably achievable. COMPARISON: CT head 08/24/2003 FINDINGS: HEAD: Intracranial: Exam is degraded by streak artifact arising from the skull. No convincing intracranial hemorrhage or abnormal extra-axial collection. No evidence of acute territorial infarct. No mass effect. No hydrocephalus. Osseous structures: No fracture. No suspicious lesion. Paranasal sinuses and mastoid air cells: No evidence of sinusitis. Mastoids are clear. Orbital contents: Globes are intact. CERVICAL SPINE: Alignment: Rightward curvature of the cervical spine. Straightening and mild reversal of cervical lordosis. C1 and C2 lateral masses are congruent. Vertebrae: No acute fracture. The C5 and C6 vertebral bodies are partially fused. No aggressive osseous lesion. Spondylosis: No high-grade canal or foraminal stenosis. Soft tissues: No prevertebral soft tissue swelling. Visualized lung apices are clear. IMPRESSION: 1.No acute intracranial hemorrhage. 2.No cervical fracture or traumatic gage lignment. Signed: Alva Dockery MD Report Verified Date/Time: 08/12/2019 15:25:21 Performing Organization Address City/State/Zipcode Ph one Number [employer] * CT spine lumbar without IV contrast (08/12/2019 3:05 PM CDT) Only the most recent of 2 results within the time period is included. Specimen Narrative Performed At FINAL REPORT [employer] CT lumbar spine without contrast HISTORY: Back pain, trauma COMPARISON: 01/05/2019 Technique: serial axial imaging was per formed without intravenous contrast as per departmental protocol. Multiplanar images are reconstructed and reviewed when indicat ed. This CT examination is performed using one or more of the following dose reduction techniques: Automated exposure control, adjustment of the mA and /or kV according to patient size, and/or use of iterativ e reconstruction technique. FINDINGS: No acute fracture, dislocation, or subl uxation is seen within the lumbar spine. There are postoperative changes of disc ectomy, laminectomy, and posterior fusion which involve levels o f L4-S1. No significant interval change from the previous exami nation. No osseous destructive lesion is appare nt. The unenhanced paraspinal soft tissues appear grossly unremarkable. IMPRESSION: No acute CT findings in the lumbar spin e. Signed: Quique Johnson MD Report Verified Date/Time: 0 15:46:11 Reading Location: [facility] Procedure Note Interface, External Ris In - 08/12/2019 3:48 PM CDT FINAL REPORT CT lumbar spine without contrast HISTORY: Back pain, trauma COMPARISON: 01/05/2019 Technique: serial axial imaging was performed without intravenous contrast as per departmental protocol. Multiplanar images are reconstructed and reviewed when indicated. This CT examination is performed using one or more of the following dose reduction techniques: Automated exposure control, adjustment of the mA and /or kV according to patient size, and/or use of iterative reconstruction technique. FINDINGS: No acute fracture, dislocation, or subluxation is seen within the lumbar spine. There are postoperative changes of discectomy, laminectomy, and posterior fusion which involve levels of L4-S1. No significant interval change from the previous examination. No osseous destructive lesion is apparent. The unenhanced paraspinal soft tissues appear grossly unremarkable. IMPRESSION: No acute CT findings in the lumbar spine. Signed: Quique Johnson MD Report Verified Date/Time: 08/12/2019 15:46:11 Reading Location: [facility] Performing Organization Address [facility] Ph one Number [facility] * Urinalysis w/Microscopic (05/04/2019 4:54 PM [employer]) Color, UA Yellow [facility] Clarity, UA Clear [facility] Specific [place], UA <=1.005 1.001 - 1.035 [facility] pH, UA 6.0 5.0 - 8.0 [facility] Protein, UA Negative Negative [facility] Glucose, UA Negative Negative [facility] Ketones, UA Negative Negative [facility] Bilirubin, UA Negative Negative [facility] Blood, UA Negative Negative [facility] Nitrite, UA Negative Negative [facility] Leukocytes, UA Negative Negative [facility] Urobilinogen, UA 0.2 0.2 - 1.0 mg/dL [facility] Bacteria, UA None Seen [facility] RBC, UA None Seen /HPF [facility] WBC, UA None Seen /HPF [facility] SQUAMOUS EPITHELIAL <5 /HPF [facility] Specimen Source [facility] Specimen Urine Performing Organization Address [facility] Ph one Number [facility] [place] [address] [facility] [place] [address] * XR spine lumbar complete 4 views min (03/05/2019 2:50 PM [employer]) Specimen Narrative Performed At FINAL REPORT [employer] LUMBAR SPINE SERIES History provided: Back pain Five lumbar type vertebra. Prior L5 zapata inectomy. Pedicle screws with interconnecting rods at L4, L5, and S1, with screws extending across both sacroiliac joints. Interbody bone graft at L4-5. Alignment anatomic. IMPRESSION: Stable postop appearance. Signed: Dmitry Leslie MD Report Verified Date/Time: 14:56:08 Reading Location: [facility] Diagnostic Imag ing Reading Room - SLV F1 1.310.12 Procedure Note Interface, External Ris In - 03/05/2019 2:58 PM [employer] FINAL REPORT LUMBAR SPINE SERIES History provided: Back pain Five lumbar type vertebra. Prior L5 laminectomy. Pedicle screws with interconnecting rods at L4, L5, and S1, with screws extending across both sacroiliac joints. Interbody bone graft at L4-5. Alignment anatomic. IMPRESSION: Stable postop appearance. Signed: Dmitry Leslie MD Report Verified Date/Time: 03/05/2019 14:56:08 Reading Location: [facility] Diagnostic Imaging Reading Room - [facility] F1 1.310.12 Performing Organization Address City/State/Zipcode Ph one Number [employer] * MR spine lumbar without IV contrast (02/26/2019 5:54 PM [employer]) Specimen Narrative Performed At FINAL REPORT [employer] MR, SPINE, LUMBAR, WITHOUT CONTRAST INDICATION: Low back pain, incontinence COMPARISON: None TECHNIQUE: Multiplanar, multisequence M R images of the lumbar spine without contrast. FINDINGS: 5 nonrib-bearing lumbar-type vertebral bodies are present. Posterior fusion and decompression span sukhjinder L4-L5 and L5-S1. Additionally, there is a sacrum iliac f usion bilaterally. Alignment of the lumbar spine is within normal li mits. Vertebral body height is maintained. Multilevel disc space height loss is pr esent. Conus terminates at L1. Cauda equina demonstrates normal appear ance. A fluid collection within the subcutane ous soft tissues measures 2.9 x 1.0 x 6.7 cm, the sterility of which cannot be assessed by imaging. Evaluation of the individual levels dem onstrates: L1/L2: Symmetric disc bulge. No signifi cant canal or foraminal narrowing.. L2/L3: Minimal symmetric disc bulge. Li gamentum flavum thickening. Mildly prominent posterior epidural fat . Bilateral facet arthropathy and hypertrophy. No significant canal o r foraminal narrowing. L3/L4: Symmetric disc bulge. Moderate b ilateral facet arthropathy and hypertrophy. Ligamentum flavum thickeni ng. Mildly prominent posterior epidural fat. No significant spinal can al or foraminal narrowing. L4/L5: Disc bulge. Fusion level. No sig nificant spinal canal narrowing. Foramina are largely obscure d by metallic hardware. L5/S1: Symmetric disc bulge. Prominent posterior epidural fat. Foramina and facet joints are largely o bscured by extensive metallic hardware artifact. No significant spina l canal narrowing. IMPRESSION: Prior fusion spanning L4-S1 and sacroil iac fusion. No significant spinal canal narrowing. Metallic hardware obscures the neural f oramina multiple levels. Within these limitations, no significan t foraminal narrowing. A fluid collection within the subcutane ous soft tissues measures 2.9 x 1.0 x 6.7 cm, the sterility of which cannot be assessed by imaging. Signed: Jerry Martin MD Report Verified Date/Time: 9 18:16:00 Reading Location: [facility] [id number] Neuro Re ading Room Procedure Note Interface, External Ris In - 02/26/2019 6:18 PM [facility] FINAL REPORT MR, SPINE, LUMBAR, WITHOUT CONTRAST INDICATION: Low back pain, incontinence COMPARISON: None TECHNIQUE: Multiplanar, multisequence MR images of the lumbar spine without contrast. FINDINGS: 5 nonrib-bearing lumbar-type vertebral b odies are present. Posterior fusion and decompression spanning L4-L5 and L5-S1. Additionally, there is a sacrum iliac fusion bilaterally. Alignment of the lumbar spine is within normal limits. Vertebral body height is maintained. Multilevel disc space height loss is present. Conus terminates at L1. Cauda equina demonstrates normal appearance. A fluid collection within the subcutaneous soft tissues measures 2.9 x 1.0 x 6.7 cm, the sterility of which cannot be assessed by imaging. Evaluation of the individual levels demonstrates: L1/L2: Symmetric disc bulge. No significant canal or foraminal narrowing.. L2/L3: Minimal symmetric disc bulge. Ligamentum flavum thickening. Mildly prominent posterior epidural fat. Bilateral facet arthropathy and hypertrophy. No significant canal or foraminal narrowing. L3/L4: Symmetric disc bulge. Moderate bilateral facet arthropathy and hypertrophy. Ligamentum flavum thickening. Mildly prominent posterior epidural fat. No significant spinal canal or foraminal narrowing. L4/L5: Disc bulge. Fusion level. No significant spinal canal narrowing. Foramina are largely obscured by metallic hardware. L5/S1: Symmetric disc bulge. Prominent posterior epidural fat. Foramina and facet joints are largely obscured by extensive metallic hardware artifact. No significant spinal canal narrowing. IMPRESSION: Prior fusion spanning L4-S1 and sacroiliac fusion. No significant spinal canal narrowing. Metallic hardware obscures the neural foramina multiple levels. Within these limitations, no significant foraminal narrowing. A fluid collection within the subcutaneous soft tissues measures 2.9 x 1.0 x 6.7 cm, the sterility of which cannot be assessed by imaging. Signed: Jerry Martin MD Report Verified Date/Time: 02/26/2019 18:16:00 Reading Location: [address] Neuro Reading Room Performing Organization Address City/State/Zipcode Ph one Number [employer] * XR spine lumbar 2 or 3 views (02/26/2019 4:21 PM [facility]) Specimen Narrative Performed At FINAL REPORT [employer] Lumbar spine three views Comparison exam: 07/10/2018 History provided: Back pain Five lumbar type vertebra. Evidence of previous L5 laminectomy and metallic hardware fusion from L4 throug h the sacroiliac joints. No fracture or subluxation. Disc spacer at L4-5. Hernia mesh repair are noted. IMPRESSION: No acute findings. Postsurgical changes . Signed: Dmitry Leslie MD Report Verified Date/Time: 9 16:30:51 Reading Location: [facility] Radiology Readi ng Room Procedure Note Interface, External Ris In - 02/26/2019 4:33 PM [facility] FINAL REPORT Lumbar spine three views Comparison exam: 07/10/2018 History provided: Back pain Five lumbar type vertebra. Evidence of previous L5 laminectomy and metallic hardware fusion from L4 through the sacroiliac joints. No fracture or subluxation. Disc spacer at L4-5. Hernia mesh repair are noted. IMPRESSION: No acute findings. Postsurgical changes. Signed: Dmitry Leslie MD Report Verified Date/Time: 02/26/2019 16:30:51 Reading Location: [facility] Radiology Reading Room Performing Organization Address City/[facility] Ph one Number [facility] * Urinalysis with Microscopic If Indicated (02/26/2019 2:34 PM [facility]) Color, UA Yellow [facility] Clarity, UA Clear [facility] Specific [place], UA 1.015 1.001 - 1.035 [facility] pH, UA 6.0 5.0 - 8.0 [facility] Protein, UA Negative Negative [facility] Glucose, UA Negative Negative [facility] Ketones, UA Negative Negative [facility] Bilirubin, UA Negative Negative [facility] Blood, UA Negative Negative [facility] Nitrite, UA Negative Negative [facility] Leukocytes, UA Negative Negative [facility] Urobilinogen, UA 0.2 0.2 - 1.0 mg/dL [facility] Specimen Source [facility] Specimen Urine Performing Organization Address City/[facility] Ph one Number [place] [address] [place] [address] after 11/03/2018 Insurance Payer Benefit Subscriber ID Type Phone Address Plan / Group MEDICAID - MEDICAID MGD MEDICAID xxxxxxxxx [employer] Non-Contra cted ([place]) [place] [phone]
[2019-11-04 15:49] VITALS: BP 161/83
--- OUTSIDE RECORDS SUMMARY | 2019-11-04 15:49 | XMS REPORT | Clinical Summary ---
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 Performing Organization Address City/State/Zipcode Ph one Number PACS/VR/DOSE * CT CERVICAL SPINE WO CONTRAST (10/17/2018 8:51 PM CDT) Specimen Impressions Performed At No acute intracranial abnormality. PACS/VR/DOSE No acute fracture or traumatic malalign ment of the cervical, thoracic, or lumbar spine. I, Dmitry Middleton MD., have reviewed this study and agree with the above report. Narrative Performed At CT HEAD WITHOUT CONTRAST PACS/VR/DOSE CT C-SPINE, T-SPINE, AND L-SPINE WITHOU T CONTRAST HISTORY: 58-year-old male mechanical fa ll, landing on back. Cerebral hemorrhage suspected COMPARISON: CT head on 06/01/2018. TECHNIQUE: Routine CTs of the head and cervical spine were performed without intravenous contrast, and coron al and sagittal reformatted images were generated. FINDINGS: CT HEAD: No calvarial fracture. Chronic remodeli ng to the right frontal sinus (7:8) is unchanged from prior imaging. No intracranial abnormality such as hem orrhage, edema, mass, mass-effect, midline shift, hydrocephalus or extra a xial fluid collection is appreciated. No xiao-white matter diffe rentiation abnormality is identified. There are no acute extracra nial findings. CT CERVICAL SPINE: Dextroscoliosis of the cervical spine i s redemonstrated with straightening of the normal cervical lordosis. Osseou s fusion at C5-C6. The remaining vertebral bodies are normal in height a nd alignment. No facet fracture or subluxation is present. The craniocervi jo ann junction is intact. Multilevel degenerative changes are seen in the fo rm of disc space narrowing, facet arthropathy and uncinate spurs. These f indings are of fymt-bj-cueitotx severity, for example at C4-C5. CT THORACIC SPINE: Dextroscoliosis of the thoracic spine i s noted. The sagittal alignment is otherwise preserved. No acute fracture or subluxation is identified. Vertebral body and disc heights are denise ntained. Mild degenerative changes are noted in the form of disc space sruthi rowing and facet arthropathy. No high-grade spinal canal or neural ramos inal stenosis is identified. CT LUMBAR SPINE: Posterior spinal fusion is identified f rom L4-S1 and bilateral iliac bones. Streak artifact is noted from the surgi jo ann hardware. No hardware fractures or gita hardware lucency is seen. The l eft S1 and bilateral L5 screws are in close proximity to the ventral lexi x. There is normal sagittal alignment. No acute fracture or subluxation is identified. Ohvj-ak-hwpctbmf facet arth ropathy seen in the nonfused lumbar spine. No high-grade spinal canal steno sis is appreciated. Procedure Note [facility], Radiant Results Inft User - 10/18/2018 8:[address] HEAD WITHOUT CONTRAST CT C-SPINE, T-SPINE, AND L-SPINE WITHOUT CONTRAST HISTORY: 58-year-old male mechanical fall, landing on back. Cerebral hemorrhage suspected COMPARISON: CT head on 06/01/2018. TECHNIQUE: Routine CTs of the head and cervical spine were performed without intravenous contrast, and coronal and sagittal reformatted images were generated. FINDINGS: CT HEAD: No calvarial fracture. Chronic remodeling to the right frontal sinus (7:8) is unchanged from prior imaging. No intracranial abnormality such as hemorrhage, edema, mass, mass-effect, midline shift, hydrocephalus or extra axial fluid collection is appreciated. No xiao-white matter differentiation abnormality is identified. There are no acute extracranial findings. CT CERVICAL SPINE: Dextroscoliosis of the cervical spine is redemonstrated with straightening of the normal cervical lordosis. Osseous fusion at C5-C6. The remaining vertebral bodies are normal in height and alignment. No facet fracture or subluxation is present. The craniocervical junction is intact. Multilevel degenerative changes are seen in the form of disc space narrowing, facet arthropathy and uncinate spurs. These findings are of sndr-kd-jpybmqvi severity, for example at C4-C5. CT THORACIC SPINE: Dextroscoliosis of the thoracic spine is noted. The sagittal alignment is otherwise preserved. No acute fracture or subluxation is identified. Vertebral body and disc heights are maintained. Mild degenerative changes are noted in the form of disc space narrowing and facet arthropathy. No high-grade spinal canal or neural foraminal stenosis is identified. CT LUMBAR SPINE: Posterior spinal fusion is identified from L4-S1 and bilateral iliac bones. Streak artifact is noted from the surgical hardware. No hardware fractures or gita hardware lucency is seen. The left S1 and bilateral L5 screws are in close proximity to the ventral cortex. There is normal sagittal alignment. No acute fracture or subluxation is identified. Qsst-hx-jrerykhl facet arthropathy seen in the nonfused lumbar spine. No high-grade spinal canal stenosis is appreciated. IMPRESSION No acute intracranial abnormality. No acute fracture or traumatic malalignment of the cervical, thoracic, or lumbar spine. IDmitry MD., have reviewed this study and agree with the above report. Performing Organization Address City/State/[facility] Number PACS/VR/DOSE * EMERGENCY SERVICES AGREEMENTS AND AUTHORIZATIONS (10/17/2018 12:01 AM CDT) Specimen Performing Organization Address City/State/Zipcode Ph one Number HIM * EMERGENCY DEPARTMENT DOCUMENTS (10/17/2018 12:01 AM CDT) Specimen Performing Organization Address City/State/Zipcode Ph one Number HIM from Last 3 Months Insurance Type Payer Benefit Subscriber ID Effective Phone Address Plan / Dates Group Medicaid [employer] [place] [employer] xxxxxxxxx 2015-P [place] [facility] [address] [place] [address] (Home) [place] [address] Advance Directives Relationship Healthcare Agent Relationship Communicat ion Name Significant Other Primary healthcare agent [phone] (Home) [email or web address] Luanne Carson Child First alternate healthcare agent Rico Christie
--- OUTSIDE RECORDS SUMMARY | 2019-11-04 15:49 | XMS REPORT | Clinical Summary ---
Author Author [facility] - Health Organization [facility] - Health Address Unknown Phone Unavailable Care Team Providers Care Performing Artist Name Role Phone Gabriella Coyle MD 12 Unavailable Pcp, Patient Does Not Have A PCP [phone] Allergies Comments Active Allergy Reactions Severity Noted [...] times daily. Active fluticasone 50 Use 1 [place] 16 g 0 mcg/actuation nasal in each [...] Added automatically from request for gerber wendy [id number] Wound dehiscence 08/23/2017 Hardware complicating wound infection 08/18/2017 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 09/21/2016 Overview: Added automatically from request for buzz nguyen [id number] Chronic diastolic congestive heart failure 7 Narcotic abuse 03/14/2016 Overview: No further narcotic prescriptions from [facility] Family Medicine. Pt informed 03/13/16.- Angelica [...] cancer; History of cervical fracture; History of CA (myocardial infarction); Atherosclerosis of [place] coronary artery of [place] heart without angina pectoris; History of transient [...] HEALTH MAINTENANCE (High ED utilization) 08/07/2018 Telephone [facility] Preventive Medicine Jericho Mejia MD Authorization (celecoxib [...] Care Team Description Date Type Specialty Screening/[facility] Audio 12/03/2018 Ancillary Visit Audiology Health Maintenance [...] Implanted Type Area Manufactur er 04/26/20172017-40 / [id number] / [id number] Dbm Putty Jefferyxmanolos 10 Cts #2018-40 BONE Left: Spin e [facility] - [id number] Tissue Implanted: Qty: 1 on 11/10/2015 by Services Harrison Wise MD at [facility] 07/07/2020 1234-12 / [id number] / [id number] Cancellous Crushed, Community BONE Left: Spine [facility] Tissue Services (1 10mm) Freeze Tissue Dried 60.0 Cc #1234-12 - S0000 Services Implanted: Qty: 1 on 11/10/2015 by Harrison Wise MD at [facility] 10/16/2021 1235-12 / [id number] / [id number] Cancellous Crushed, Community BONE N/A: Back [facility] Tissue Services (1 10mm) Freeze Tissue Dried 90.0 Cc #1235-12 - Services [id number] Implanted: Qty: 1 on 01/19/2017 by Harrison Wise MD at [facility] 09/22/2018 2018-40 / [id number] / [id number] Dbm Putty Maxxeus 10cc Cts #2018-40 BONE N/A: Back [facility] - [id number] Tissue Implanted: Qty: 1 on 01/19/2017 by Services Harrison Wise MD at [facility] 07/23/2018159186 / 00 / 00 Duraseal, Covidien Improved Dural Duraseal N/A: Spine Tyco/Covid Sealant System 5ml #[id number] - S00 ien Implanted: Qty: 1 on 08/08/2017 by Harrison Wise MD at [facility] 01/19/2027 [id number] / 0 / [id number] Yareli 4.75 Ccm Ns Curved 70mm Solara YARELI N/A: Back Medtronic Medtronic #[id number] - S0 Implanted: Qty: 2 on 01/19/2017 by Harrison Wies MD at [facility] 11/09/2025 [id number] / 0000 / [id number] Screw Solera 6.5x30mm Medtronic SCREW Left: Spine Medtronic #[id number] - [id number] Implanted: Qty: 2 on 11/10/2015 by Harrison Wise MD at [facility] 11/09/2025 [id number] / 0000 / [id number] Screw, Medtronic Solara 6.5x45 SCREW Left: Spine Medtronic #[id number] - [id number] Implanted: Qty: 2 on 11/10/2015 by Harrison Wise MD at [facility] 01/19/2027 [id number] / 0 / [id number] Screw Solera 8.5x30mm Mas Medtronic SCREW N/A: Back Medtronic #[id number] Implanted: Qty: 2 on 01/19/2017 by Harrison Wise MD at [facility] 01/19/2027 [id number] / 0 / [id number] Screw, Medtronic Solara 6.5x45 SCREW N/A: Back Medtronic #[id number] - S0 Implanted: Qty: 2 on 01/19/2017 by Harrison Wise MD at [facility] 08/09/2027 [id number] / 00 / 00 Screw, Medtronic # Set Break Off Ti SCREW N/A: Spine Medtronic #[id number] - S00 Implanted: Qty: 3 on 08/08/2017 by Harrison Wise MD at [facility] Description: No charge for any implant per [employer]ort[employer]ia Bell Rep 11/09/2025 [id number] / 000 / [id number] Screw Solera 4.75 Ti Ns Break Off Left: Spine Med tronic Medtronic #[id number] - S000 Implanted: Qty: 4 on 11/10/2015 by Harrison Wise MD at [facility] 11/09/2025 [id number] / 0000 / [id number] Yareli 4.75 Ccm Ns Curved 45mm Solera Left: Spine Me dtronic Medtronic #[id number] - [id number] Implanted: Qty: 2 on 11/10/2015 by Harrison Wise MD at [facility] 01/19/2027 [id number] / 0 / [id number] Screw Solera 4.75 Ti Ns Break Off N/A: Back Med tronic Medtronic #[id number] - S0 Implanted: Qty: 6 on 01/19/2017 by Harrison Wise MD at [facility] 01/19/2027 [id number] / 0 / [id number] Screw Solera 7.5x45mm Medtronic N/A: Back Medtr onic #[id number] - S0 Implanted: Qty: 2 on 01/19/2017 by Harrison Wise MD at [facility] Procedures Comments Procedure Name Priority Date/Time Associated [...] uncinate spurs. These f indings are of dxuc-gl-tprsyscv severity, for example at C4-C5. CT THORACIC [...] No acute fracture or subluxation is identified. Czms-aj-udijyipv facet arth ropathy seen in the nonfused [...] and uncinate spurs. These findings are of fcif-dv-lkbzekzl severity, for example at C4-C5. CT THORACIC [...] No acute fracture or subluxation is identified. Eeor-kd-brnajffc facet arthropathy seen in the nonfused lumbar spine. No high-grade spinal canal stenosis is appreciated. IMPRESSION No acute intracranial abnormality. No acute fracture or traumatic malalignment of the cervical, thoracic, or lumbar spine. IDmitry MD., have reviewed this study and agree with the above report. Performing Organization Address City/State/[facility] Ph one Number PACS/VR/DOSE * CT LUMBAR [...] uncinate spurs. These f indings are of uzrj-xa-ioshjnxz severity, for example at C4-C5. CT THORACIC [...] No acute fracture or subluxation is identified. Pwhm-ru-ylrnpfzi facet arth ropathy seen in the nonfused lumbar spine. No high-grade spinal canal steno sis is appreciated. Procedure Note [facility], Radiant Results Inft User - 10/18/2018 8:40 [...] and uncinate spurs. These findings are of yrhe-ip-vfnfyfdv severity, for example at C4-C5. CT THORACIC [...] No acute fracture or subluxation is identified. Bgop-mt-xsrwruok facet arthropathy seen in the nonfused lumbar [...] uncinate spurs. These f indings are of lubn-wu-yzmezoyr severity, for example at C4-C5. CT THORACIC [...] No acute fracture or subluxation is identified. Nrlt-vh-kakxqzhm facet arth ropathy seen in the nonfused [...] and uncinate spurs. These findings are of mlvd-gd-ighwsztf severity, for example at C4-C5. CT THORACIC [...] No acute fracture or subluxation is identified. Ubvp-cr-snfkwfyi facet arthropathy seen in the nonfused lumbar [...] uncinate spurs. These f indings are of vslm-hq-iukoweer severity, for example at C4-C5. CT THORACIC [...] No acute fracture or subluxation is identified. Qbwu-ye-tbexnzrl facet arth ropathy seen in the nonfused [...] and uncinate spurs. These findings are of zfhv-se-ecayigvx severity, for example at C4-C5. CT THORACIC [...] No acute fracture or subluxation is identified. Zlip-cb-jpumqcdk facet arthropathy seen in the nonfused lumbar spine. No high-grade spinal canal stenosis is appreciated. IMPRESSION No acute intracranial abnormality. No acute fracture or traumatic malalignment of the cervical, thoracic, or lumbar spine. IDmitry MD., have reviewed this study and agree with the above report. Performing Organization Address City/State/[facility] Ph one Number PACS/VR/DOSE * EMERGENCY SERVICES AGREEMENTS AND AUTHORIZATIONS (10/17/2018 12:01 AM CDT) Specimen Performing Organization Address City/State/Zipcode Ph one Number HIM * EMERGENCY DEPARTMENT DOCUMENTS (10/17/2018 12:01 AM CDT) Specimen Performing Organization Address City/State/Zipcode Ph one Number HIM from Last 3 Months Insurance Type Payer Benefit Subscriber ID Effective Phone Address Plan / Dates Group Medicaid [employer] [place] [employer] xxxxxxxxx 2015-P [place] [facility] [address] [place] [address] (Home) [place] [address] Advance Directives Relationship Healthcare Agent Relationship Communicat ion Name Significant Other Primary healthcare agent [phone] (Home) [email or web address] Luanne Carson Child First alternate healthcare agent Rico Christie
--- OUTSIDE RECORDS SUMMARY | 2019-11-04 15:49 | XMS REPORT | Summary of Care ---
Author Author [facility] - Health Organization [facility] - Health Address Unknown Phone Unavailable Care Team Providers Care Racking Technician Name Role Phone Gabriella Coyle MD 12 Unavailable Pcp, Patient Does Not Have A PCP [phone] Reason for Visit * Reason Comments HEALTH MAINTENANCE High ED Utilization Encounter Details Care Team Description Date Type Department Golden Rivera, RN [address] [place] [address] HEALTH MAINTENANCE (High ED Utilization) 11/01/2018 Telephone [facility] Health Account able Care [address] [place] [phone] Allergies Comments Active Allergy Reactions Severity Noted Date Penicillins Rash 11/09/2015 documented as of this encounter (statuses as of 11/01/2018) Medications End Date Status Medication Sig Dispensed [...] times daily. Active fluticasone 50 Use 1 [place] 16 g 0 mcg/actuation nasal in each 9 sprayIndications: Acute nostril 2 rhinosinusitis (two) times daily. Active sildenafil 50 mg Take 1 tablet 30 tablet 0 01 tabletIndications: by mouth at 9 Erectile [...] 100 mg SR 1 tablet by 0 01 tablet mouth twice a 7 day [...] mg Take 1 tablet 20 tablet 0 10/17/20 1 tabletIndications: Fall, by mouth 9 initial [...] mg Take 1 tablet 30 tablet 0 10/17/2 01 tabletIndications: Fall, by mouth 9 initial [...] 9 Generalized anxiety (two) times disorder daily. documented as of this encounter (statuses as of 11/01/2018) Active Problems Problem Noted Date Infection 09/28/2017 Chronic midline low back pain without sciatica 09/27 Overview: Added automatically from request for gerber sunithapino [id number] Wound dehiscence 08/23/2017 Hardware complicating wound infection 08/18/2017 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 09/21/2016 Overview: Added automatically from request for gerber sunithapino [id number] Chronic diastolic congestive heart failure Narcotic abuse 03/14/2016 Overview: No further narcotic prescriptions from [facility] Family Medicine. Pt informed 03/13/16.- Angelica [...] as of this encounter (statuses as of 11/01/2018) Resolved Problems Problem Noted Date Resolved Date [...] as of this encounter (statuses as of 11/01/2018) Immunizations Name Administration Dates Next Due DTAP [...] of this encounter Last Filed Vital Signs Not on filedocumented in this encounter Plan of Treatment Care Team Description Date Type Specialty Screening/[facility] Audio 12/03/2018 Ancillary Visit Audiology Health Maintenance [...] Implanted Type Area Manufactur er 04/26/20172017- / [id number] / [id number] Dbm Putty Maxxeus 10cc Cts # BONE Left: Spin e [facility] - [id number] Tissue Implanted: Qty: 1 on 11/10/2015 by Services Harrison Wise MD at [facility] 07/07/2020 1234-12 / [id number] / [id number] Cancellous Crushed, Community BONE Left: Spine [facility] Tissue Services (1 10mm) Freeze Tissue Dried 60.0 Cc #1234-12 - S0000 Services Implanted: Qty: 1 on 11/10/2015 by Harrison Wise MD at [facility] 10/16/2021 1235-12 / [id number] / [id number] Cancellous Crushed, Community BONE N/A: Back [facility] Tissue Services (1 10mm) Freeze Tissue Dried 90.0 Cc #1235-12 - Services [id number] Implanted: Qty: 1 on 01/19/2017 by Harrison Wise MD at [facility] 09/22/2018 / [id number] / [id number] Dbm Putty Maxxeus 10cc Cts # BONE N/A: Back [facility] - [id number] Tissue Implanted: Qty: 1 on 01/19/2017 by Services Harrison Wise MD at [facility] 07/23/2018946463 Duraseal, Covidien Improved Dural Duraseal N/A: Spine Tyco/Covid Sealant System 5ml #302125 - S00 ien Implanted: Qty: 1 on 08/08/2017 by Harrison Wise MD at [facility] 01/19/2027 [id number] / 0 / [id number] Yareli 4.75 Ccm Ns Curved 70mm Solara YARELI N/A: Back Medtronic Medtronic #[id number] - S0 Implanted: Qty: 2 on 01/19/2017 by Harrison Wise MD at [facility] 11/09/2025 [id number] / 0000 / [id number] Screw Solera 6.5x30mm Medtronic SCREW Left: Spine Medtronic #[id number] - [id number] Implanted: Qty: 2 on 11/10/2015 by Harrison Wise MD at [facility] 11/09/2025 [id number] / 0000 / [id number] Screw, Medtronic Solara 6.5x45 SCREW Left: Spine Medtronic #[id number] - [id number] Implanted: Qty: 2 on 11/10/2015 by Harrison Wise MD at [facility] 01/19/2027 [id number] / 0 / [id number] Screw Solera 8.5x30mm Mas Medtronic SCREW N/A: Back Medtronic #[id number] Implanted: Qty: 2 on 01/19/2017 by Harrison Wise MD at [facility] 01/19/2027 [id number] / 0 / [id number] Screw, Medtronic Solara 6.5x45 SCREW N/A: Back Medtronic #[id number] - S0 Implanted: Qty: 2 on 01/19/2017 by Harrison Wise MD at [facility] 08/09/2027 [id number] / 00 / 00 Screw, Medtronic # Set Break Off Ti SCREW N/A: Spine Medtronic #[id number] - S00 Implanted: Qty: 3 on 08/08/2017 by Harrison Wise MD at [facility] Description: No charge for any implant per Cordell [employer] Rep 11/09/2025 [id number] / 000 / [id number] Screw Solera 4.75 Ti Ns Break Off Left: Spine Med tronic Medtronic #[id number] - S000 Implanted: Qty: 4 on 11/10/2015 by Harrison Wise MD at [facility] 11/09/2025 [id number] / 0000 / [id number] Yareli 4.75 Ccm Ns Curved 45mm Solera Left: Spine Me dtronic Medtronic #[id number] - [id number] Implanted: Qty: 2 on 11/10/2015 by Harrison Wise MD at [facility] 01/19/2027 [id number] / 0 / [id number] Screw Solera 4.75 Ti Ns Break Off N/A: Back Med tronic Medtronic #[id number] - S0 Implanted: Qty: 6 on 01/19/2017 by Harrison Wise MD at [facility] 01/19/2027 [id number] / 0 / [id number] Screw Solera 7.5x45mm Medtronic N/A: Back Medtr onic #[id number] - S0 Implanted: Qty: 2 on 01/19/2017 by Harrison Wise MD at [facility] documented as of this encounter Results Not on filedocumented in this encounter Insurance Type Payer Benefit Subscriber ID Effective Phone Address Plan / Dates Group Medicaid [facility]-P P O [facility] [address] [place] [address] documented as of this encounter Advance Directives Relationship Healthcare Agent Relationship Communicat ion Name Significant Other Primary healthcare agent [phone] (Home) [email or web address] Luanne Carson Child First alternate healthcare agent Rico Christie
--- OUTSIDE RECORDS SUMMARY | 2019-11-04 15:49 | XMS REPORT | Summary of Care ---
Author Author [facility] - Health Organization [facility] - Health Address Unknown Phone Unavailable Care Team Providers Care President Finance Company Name Role Phone Gabriella Coyle MD 12 Unavailable Pcp, Patient Does Not Have A PCP Encounter Details Care Team Description Date Type Department Prerna Thompson, PT 03/30/2018 Case Management [facility] Health Physica l and Occupational [facility] [address], [address] [place] [address] Allergies Comments Active Allergy Reactions Severity Noted Date Penicillins Rash 11/09/2015 documented as of this encounter (statuses as of 10/29/2018) Medications End Date Status Medication Sig Dispensed [...] by 9 mouth 3 (three) times daily. 04/03/2018 Discontinued diazePAM 5 mg tablet Take 1 tablet 60 tablet 2 by mouth 2 8 (two) times daily. 05/06/2018 Discontinued venlafaxine XR 150 mg 24 Take 1 30 capsule 2 1 hr capsule capsule by 8 mouth daily with breakfast. 07/19/2018 Discontinued acetaminophen-codeine Take 1 tablet 12 tablet 0 300-30 mg tablet by mouth 8 every 6 (six) hours as needed for Pain (scale 4-6). 07/19/2018 Discontinued acetaminophen-codeine Take 1 tablet 5 tablet 0 300-30 mg tablet by mouth 8 every 8 (eight) hours as needed for Pain (scale 4-6). 07/19/2018 Discontinued acetaminophen-codeine Take 1 tablet 25 tablet 0 300-30 mg tablet by mouth 8 every 6 (six) hours as needed for Pain (scale 7-10). 07/19/2018 Discontinued acetaminophen-codeine Take 1 tablet 30 tablet 0 (TYLENOL-CODEINE #3) by mouth 9 300-30 mg tablet every 8 (eight) hours as needed for Pain (scale 7-10). 04/28/2018 gabapentin 100 mg capsule Take 1 90 capsule 0 capsule by 9 mouth 3 (three) times daily for 30 days. 04/02/2018 acetaminophen-codeine take 1 tablet 20 tablet 0 300-30 mg tablet by mouth 9 every 4 hours as needed for pain scale 1-3 documented as of this encounter (statuses as of 10/29/2018) Active Problems Problem Noted Date Infection 09/28/2017 Chronic midline low back pain without sciatica 09/27 Overview: Added automatically from request for buzz heltonery [id number] Wound dehiscence 08/23/2017 Hardware complicating wound infection 08/18/2017 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 09/21/2016 Overview: Added automatically from request for buzz heltonery [id number] Chronic diastolic congestive heart failure 7 Narcotic abuse 03/14/2016 Overview: No further narcotic prescriptions from [facility] Family Medicine. Pt informed 03/13/16.- Angelica [...] as of this encounter (statuses as of 10/29/2018) Resolved Problems Problem Noted Date Resolved Date [...] as of this encounter (statuses as of 10/29/2018) Immunizations Name Administration Dates Next Due DTAP [...] Care Team Description Date Type Specialty Screening/Bon [facility] Audio 12/03/2018 Ancillary Visit Audiology Health [...] Implanted Type Area Manufactur er 04/26/20172017-40 / [id number] / [id number] Dbm Putty Maxxeus 10cc Cts #2018-40 BONE Left: Spin e [facility] - [id number] Tissue Implanted: Qty: 1 on 11/10/2015 by Services Harrison Wise MD at [facility] 07/07/2020 1234-12 / [id number] / [id number] Cancellous Crushed, Community BONE Left: Spine [facility] (1 10mm) Freeze Tissue Dried 60.0 Cc #1234-12 - S0000 Services Implanted: Qty: 1 on 11/10/2015 by Harrison Wise MD at [facility] 10/16/2021 1235-12 / [id number] / [id number] Cancellous Crushed, Community BONE N/A: Back [facility] (1 10mm) Freeze Tissue Dried 90.0 Cc #1235-12 - Services [id number] Implanted: Qty: 1 on 01/19/2017 by Harrison Wise MD at [facility] 09/22/20182017-40 / [id number] / [id number] Dbm Putty Maxxeus 10cc Cts #2018-40 BONE N/A: [facility] - [id number] Tissue Implanted: Qty: 1 on 01/19/2017 by Services Harrison Wise MD at [facility] 07/23/2018699728 / Duraseal, Covidien Improved Dural Duraseal N/A: Spine Tyco/Covid Sealant System 5ml #[id number] - S00 ien Implanted: Qty: 1 on 08/08/2017 by Harrison Wise MD at [facility] 01/19/2027 [id number] / 0 / [id number] Yareli 4.75 Ccm Ns Curved 70mm Solara YARELI N/A: Back Medtronic Medtronic #[id number] - S0 Implanted: Qty: 2 on 01/19/2017 by Harrison Wise MD at [facility] 11/09/2025 [id number] / 0000 / [id number] Screw Solera 6.5x30mm Medtronic SCREW Left: Spine Medtronic #[id number] - S0000 Implanted: Qty: 2 on 11/10/2015 by Harrison Wise MD at [facility] 11/09/2025 [id number] / 0000 / [id number] Screw, Medtronic Solara 6.5x45 SCREW Left: Spine Medtronic #[id number] - S0000 Implanted: Qty: 2 on 11/10/2015 by Harrison Wise MD at [facility] 01/19/2027 [id number] / 0 / [id number] Screw Solera 8.5x30mm Mas Medtronic SCREW N/A: Back Medtronic #[id number] Implanted: Qty: 2 on 01/19/2017 by Harrison Wise MD at [facility] 01/19/2027 [id number] / 0 / [id number] Screw, Medtronic Solara 6.5x45 SCREW N/A: Back Medtronic #[id number] - S0 Implanted: Qty: 2 on 01/19/2017 by Harrison Wise MD at [facility] 08/09/2027 [id number] / 00 / 00 Screw, Medtronic # Set Break Off Ti SCREW N/A: Spine Medtronic #[id number] - S00 Implanted: Qty: 3 on 08/08/2017 by Harrison Wise MD at [facility] Description: No charge for any implant per Jesse Watts Medteonic Rep 11/09/2025 [id number] / 000 / [id number] Screw Solera 4.75 Ti Ns Break Off Left: Spine Med tronic Medtronic #[id number] - S000 Implanted: Qty: 4 on 11/10/2015 by Harrison Wise MD at [facility] 11/09/2025 [id number] / 0000 / [id number] Yareli 4.75 Ccm Ns Curved 45mm Solera Left: Spine Me dtronic Medtronic #[id number] - S0000 Implanted: Qty: 2 on 11/10/2015 by Harrison Wise MD at [facility] 01/19/2027 [id number] / 0 / [id number] Screw Solera 4.75 Ti Ns Break Off N/A: Back Med tronic Medtronic #[id number] - S0 Implanted: Qty: 6 on 01/19/2017 by Harrison Wise MD at [facility] 01/19/2027 [id number] / 0 / [id number] Screw Solera 7.5x45mm Medtronic N/A: Back Medtr onic #[id number] - S0 Implanted: Qty: 2 on 01/19/2017 by Harrison Wise MD at [facility] documented as of this encounter Results Not on filedocumented in this encounter Insurance Type Payer Benefit Subscriber ID Effective Phone Address Plan / Dates Group Medicaid [employer] [facility] AMER[employer]ROUP xxxxxxxxx 2015-P [place] [address] [id number] [place] [address] documented as of this encounter Advance Directives Relationship Healthcare Agent Relationship Communicat ion Name Significant Other Primary healthcare agent [phone] (Home) Luanne Carson Child First alternate healthcare agent Rico Christie
--- OUTSIDE RECORDS SUMMARY | 2019-11-04 15:49 | XMS REPORT | Clinical Summary ---
Author Author [facility] - Health Organization [facility] - Health Address Unknown Phone Unavailable Care Team Providers Care Ui Ux Engineer Name Role Phone Gabriella Coyle MD 12 Unavailable Pcp, Patient Does Not Have A PCP [phone] Allergies Comments Active Allergy Reactions Severity Noted [...] times daily. Active fluticasone 50 Use 1 Kaplan 16 g 0 mcg/actuation nasal in each [...] Added automatically from request for gerber wendy [id number] Wound dehiscence 08/23/2017 Hardware complicating wound infection 08/18/2017 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 09/21/2016 Overview: Added automatically from request for buzz nguyen [id number] Chronic diastolic congestive heart failure 7 Narcotic abuse 03/14/2016 Overview: No further narcotic prescriptions from [facility] Family Medicine. Pt informed 03/13/16.- Angelica Valero [...] cancer; History of cervical fracture; History of OR (myocardial infarction); Atherosclerosis of [place] coronary artery of [place] heart without angina pectoris; History of transient [...] HEALTH MAINTENANCE (High ED utilization) 08/07/2018 Telephone [facility] Preventive Medicine Jericho Mejia MD Authorization (celecoxib [...] Care Team Description Date Type Specialty Screening/Bon [facility] Audio 12/03/2018 Ancillary Visit Audiology Health [...] Implanted Type Area Manufactur er 04/26/20172017-40 / [id number] / [id number] Dbm Putty Jefferyxmanolos 10 Cts #2018-40 BONE Left: Spin e [facility] - [id number] Tissue Implanted: Qty: 1 on 11/10/2015 by Services Harrison Wise MD at [facility] 07/07/2020 1234-12 / [id number] / [id number] Cancellous Crushed, Community BONE Left: Spine [facility] Tissue Services (1 10mm) Freeze Tissue Dried 60.0 Cc #1234-12 - S0000 Services Implanted: Qty: 1 on 11/10/2015 by Harrison Wise MD at [facility] 10/16/2021 1235-12 / [id number] / [id number] Cancellous Crushed, Community BONE N/A: Back [facility] Tissue Services (1 10mm) Freeze Tissue Dried 90.0 Cc #1235-12 - Services [id number] Implanted: Qty: 1 on 01/19/2017 by Harrison Wise MD at [facility] 09/22/2018 2018-40 / [id number] / [id number] Dbm Putty Maxxeus 10cc Cts #2018-40 BONE N/A: Back [facility] - [id number] Tissue Implanted: Qty: 1 on 01/19/2017 by Services Harrison Wise MD at [facility] 07/23/2018913873 / 00 / 00 Duraseal, Covidien Improved Dural Duraseal N/A: Spine Tyco/Covid Sealant System 5ml #781342 - S00 ien Implanted: Qty: 1 on 08/08/2017 by Harrison Wise MD at [facility] 01/19/2027 [id number] / 0 / [id number] Yareli 4.75 Ccm Ns Curved 70mm Solara YARELI N/A: Back Medtronic Medtronic #[id number] - S0 Implanted: Qty: 2 on 01/19/2017 by Harrison Wise MD at [facility] 11/09/2025 [id number] / 0000 / [id number] Screw Solera 6.5x30mm Medtronic SCREW Left: Spine Medtronic #[id number] - S0000 Implanted: Qty: 2 on 11/10/2015 by Harrison Wise MD at [facility] 11/09/2025 [id number] / 0000 / [id number] Screw, Medtronic Solara 6.5x45 SCREW Left: Spine Medtronic #[id number] - S0000 Implanted: Qty: 2 on 11/10/2015 by Harrison Wise MD at [facility] 01/19/2027 [id number] / 0 / [id number] Screw Solera 8.5x30mm Mas Medtronic SCREW N/A: Back Medtronic #[id number] Implanted: Qty: 2 on 01/19/2017 by Harrison Wise MD at [facility] 01/19/2027 [id number] / 0 / [id number] Screw, Medtronic Solara 6.5x45 SCREW N/A: Back Medtronic #[id number] - S0 Implanted: Qty: 2 on 01/19/2017 by Harrison Wise MD at [facility] 08/09/2027 [id number] / 00 / 00 Screw, Medtronic # Set Break Off Ti SCREW N/A: Spine Medtronic #[id number] - S00 Implanted: Qty: 3 on 08/08/2017 by Harrison Wise MD at [facility] Description: No charge for any implant per Hortensia Bell Rep 11/09/2025 [id number] / 000 / [id number] Screw Solera 4.75 Ti Ns Break Off Left: Spine Med tronic Medtronic #[id number] - S000 Implanted: Qty: 4 on 11/10/2015 by Harrison Wise MD at [facility] 11/09/2025 [id number] / 0000 / [id number] Yareli 4.75 Ccm Ns Curved 45mm Solera Left: Spine Me dtronic Medtronic #[id number] - S0000 Implanted: Qty: 2 on 11/10/2015 by Harrison Wise MD at [facility] 01/19/2027 [id number] / 0 / [id number] Screw Solera 4.75 Ti Ns Break Off N/A: Back Med tronic Medtronic #[id number] - S0 Implanted: Qty: 6 on 01/19/2017 by Harrison Wise MD at [facility] 01/19/2027 [id number] / 0 / [id number] Screw Solera 7.5x45mm Medtronic N/A: Back Medtr onic #[id number] - S0 Implanted: Qty: 2 on 01/19/2017 by Harrison Wise MD at [facility] Procedures Comments Procedure Name Priority Date/Time Associated [...] uncinate spurs. These f indings are of ynoo-ai-jrzcnuxo severity, for example at C4-C5. CT THORACIC [...] No acute fracture or subluxation is identified. Rmxj-sx-uvwfyjks facet arth ropathy seen in the nonfused [...] and uncinate spurs. These findings are of fplv-oc-nttpocrd severity, for example at C4-C5. CT THORACIC [...] No acute fracture or subluxation is identified. Qlsf-pd-ccusopbh facet arthropathy seen in the nonfused lumbar spine. No high-grade spinal canal stenosis is appreciated. IMPRESSION No acute intracranial abnormality. No acute fracture or traumatic malalignment of the cervical, thoracic, or lumbar spine. IDmitry MD., have reviewed this study and agree with the above report. Performing Organization Address City/State[facility] Ph one Number PACS/VR/DOSE * CT LUMBAR [...] uncinate spurs. These f indings are of irgt-pf-egvzmycm severity, for example at C4-C5. CT THORACIC [...] No acute fracture or subluxation is identified. Pgcn-mm-oxyrjpov facet arth ropathy seen in the nonfused lumbar spine. No high-grade spinal canal steno sis is appreciated. Procedure Note [facility], Radiant Results Inft User - [...] and uncinate spurs. These findings are of igfl-tj-zjgchnzm severity, for example at C4-C5. CT THORACIC [...] No acute fracture or subluxation is identified. Keig-es-yqjnhuuk facet arthropathy seen in the nonfused lumbar [...] uncinate spurs. These f indings are of wsvg-gn-tobhrvom severity, for example at C4-C5. CT THORACIC [...] No acute fracture or subluxation is identified. Gwve-qp-uedggpkh facet arth ropathy seen in the nonfused [...] and uncinate spurs. These findings are of aits-sr-ajrqnjks severity, for example at C4-C5. CT THORACIC [...] No acute fracture or subluxation is identified. Nvgh-zr-gsiztiro facet arthropathy seen in the nonfused lumbar [...] uncinate spurs. These f indings are of lhpa-uv-ngeuvfor severity, for example at C4-C5. CT THORACIC [...] No acute fracture or subluxation is identified. Eppp-qa-jrzvowla facet arth ropathy seen in the nonfused [...] and uncinate spurs. These findings are of iwft-pl-dlpqjdfp severity, for example at C4-C5. CT THORACIC [...] No acute fracture or subluxation is identified. Cgte-jz-ipjtaafv facet arthropathy seen in the nonfused lumbar spine. No high-grade spinal canal stenosis is appreciated. IMPRESSION No acute intracranial abnormality. No acute fracture or traumatic malalignment of the cervical, thoracic, or lumbar spine. IDmitry MD., have reviewed this study and agree with the above report. Performing Organization Address [facility]/State[facility] Number PACS/VR/DOSE * EMERGENCY SERVICES AGREEMENTS AND AUTHORIZATIONS (10/17/2018 12:01 AM CDT) Specimen Performing Organization Address City/State/Zipcode Ph one Number HIM * EMERGENCY DEPARTMENT DOCUMENTS (10/17/2018 12:01 AM CDT) Specimen Performing Organization Address City/State/Zipcode Ph one Number HIM from Last 3 Months Insurance Type Payer Benefit Subscriber ID Effective Phone Address Plan / Dates Group Medicaid [employer] [place] [employer] xxxxxxxxx 2015-P [place] [facility] [address] [place] [address] (Home) [place] [address] Advance Directives Relationship Healthcare Agent Relationship Communicat ion Name Significant Other Primary healthcare agent [phone] (Home) [email or web address] Luanne Carson Child First alternate healthcare agent Rico Christie
--- OUTSIDE RECORDS SUMMARY | 2019-11-04 15:49 | XMS REPORT | Clinical Summary ---
Author Author [facility] - Health Organization [facility] - Health Address Unknown Phone Unavailable Care Team Providers Care Physician Obstetrician Name Role Phone Gabriella Coyle MD 12 Unavailable Pcp, Patient Does Not Have A PCP [phone] Allergies Comments Active Allergy Reactions Severity Noted [...] times daily. Active fluticasone 50 Use 1 [place] 16 g 0 mcg/actuation nasal in each [...] TK 1 T PO Q 8 0 06/17/19 1 H PRF ANXIETY 9 Active gabapentin [...] 9 tabletIndications: NSAID daily. induced gastritis Active diazePAM 5 mg Take 1 tablet [...] 1 tablet 30 tablet 0 01 tabletIndications: Fall, by mouth 9 initial encounter every 6 (six) hours as needed for Pain (scale 1-3). Active venlafaxine XR 150 mg 24 Take 1 30 capsule 2 0 hr capsuleIndications: capsule by 9 Depressive disorder, mouth daily Generalized anxiety with disorder breakfast. Active Problems Problem Noted Date Infection 09/28/2017 Chronic midline low back pain without sciatica 09/27 Overview: Added automatically from request for buzz nguyen [id number] Wound dehiscence 08/23/2017 Hardware complicating wound infection 08/18/2017 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 09/21/2016 Overview: Added automatically from request for buzz nguyen [id number] Chronic diastolic congestive heart failure 7 Narcotic abuse 03/14/2016 Overview: No further narcotic prescriptions from [facility] Family Medicine. Pt informed 03/13/16.- Angelica [...] cancer; History of cervical fracture; History of [place] (myocardial infarction); Atherosclerosis of [place] coronary artery of [place] heart without angina pectoris; History of transient [...] HEALTH MAINTENANCE (High ED utilization) 08/07/2018 Telephone Public Health & [facility] Preventive Medicine Jericho Mejia MD Authorization [...] Care Team Description Date Type Specialty Screening/Bon [facility] Audio 12/03/2018 Ancillary Visit Audiology Health [...] L ot Implanted Type Area Manufactur er 04/26/2017 / [id number] / [id number] Dbm Putty Maxxeus 10cc Cts #2018-40 BONE Left: Spin e [facility] - [id number] Tissue Implanted: Qty: 1 on 11/10/2015 by Services Harrison Wise MD at [facility] 07/07/2020 1234-12 / [id number] / [id number] Cancellous Crushed, Community BONE Left: Spine [facility] Tissue Services (1 10mm) Freeze Tissue Dried 60.0 Cc #1234-12 - [id number] Services Implanted: Qty: 1 on 11/10/2015 by Harrison Wise MD at [facility] 10/16/2021 1235-12 / [id number] / [id number] Cancellous Crushed, Community BONE N/A: Back [facility] Tissue Services (1 10mm) Freeze Tissue Dried 90.0 Cc #1235-12 - Services [id number] Implanted: Qty: 1 on 01/19/2017 by Harrison Wise MD at [facility] 09/22/2018 2018-40 / [id number] / [id number] Dbm Putty Maxxeus 10cc Cts #2018-40 BONE N/A: Back [facility] - [id number] Tissue Implanted: Qty: 1 on 01/19/2017 by Services Harrison Wise MD at [facility] 07/23/2018962032 / / Duraseal, Covidien Improved Dural Duraseal N/A: Spine Tyco/Covid Sealant System 5ml #[id number] - S00 ien Implanted: Qty: 1 on 08/08/2017 by Harrison Wise MD at [facility] 01/19/2027 [id number] / 0 / [id number] Yareli 4.75 Ccm Ns Curved 70mm Solara YARELI N/A: Back Medtronic Medtronic #[id number] - S0 Implanted: Qty: 2 on 01/19/2017 by Harrison Wise MD at [facility] 11/09/2025 [id number] / 0000 / [id number] Screw Solera 6.5x30mm Medtronic SCREW Left: Spine Medtronic #[id number] - S0000 Implanted: Qty: 2 on 11/10/2015 by Harrison Wise MD at [facility] 11/09/2025 [id number] / 0000 / [id number] Screw, Medtronic Solara 6.5x45 SCREW Left: Spine Medtronic #[id number] - S0000 Implanted: Qty: 2 on 11/10/2015 by Harrison Wise MD at [facility] 01/19/2027 [id number] / 0 / [id number] Screw Solera 8.5x30mm Mas Medtronic SCREW N/A: Back Medtronic #[id number] Implanted: Qty: 2 on 01/19/2017 by Harrison Wise MD at [facility] 01/19/2027 [id number] / 0 / [id number] Screw, Medtronic Solara 6.5x45 SCREW N/A: Back Medtronic #[id number] - S0 Implanted: Qty: 2 on 01/19/2017 by Harrison Wise MD at [facility] 08/09/2027 [id number] / 00 / 00 Screw, Medtronic # Set Break Off Ti SCREW N/A: Spine Medtronic #[id number] - S00 Implanted: Qty: 3 on 08/08/2017 by Harrison Wise MD at [facility] Description: No charge for any implant per Hortensia Bell 11/09/2025 [id number] / 000 / [id number] Screw Solera 4.75 Ti Ns Break Off Left: Spine Med tronic Medtronic #[id number] - S000 Implanted: Qty: 4 on 11/10/2015 by Harrison Wise MD at [facility] 11/09/2025 [id number] / 0000 / [id number] Yareli 4.75 Ccm Ns Curved 45mm Solera Left: Spine Me dtronic Medtronic #[id number] - S0000 Implanted: Qty: 2 on 11/10/2015 by Harrison Wise MD at [facility] 01/19/2027 [id number] / 0 / [id number] Screw Solera 4.75 Ti Ns Break Off N/A: Back Med tronic Medtronic #[id number] - S0 Implanted: Qty: 6 on 01/19/2017 by Harrison Wise MD at [facility] 01/19/2027 [id number] / 0 / [id number] Screw Solera 7.5x45mm Medtronic N/A: Back Jennifer flynn #[id number] - S0 Implanted: Qty: 2 on 01/19/2017 by Harrison Wise MD at [facility] Procedures Comments Procedure Name Priority Date/Time Associated [...] uncinate spurs. These f indings are of ceod-rn-gsmegbau severity, for example at C4-C5. CT THORACIC [...] No acute fracture or subluxation is identified. Bnsk-wx-xbaehvnc facet arth ropathy seen in the nonfused [...] and uncinate spurs. These findings are of gume-is-jnqrfkki severity, for example at C4-C5. CT THORACIC [...] No acute fracture or subluxation is identified. Papp-ve-ijmagyos facet arthropathy seen in the nonfused lumbar spine. No high-grade spinal canal stenosis is appreciated. IMPRESSION No acute intracranial abnormality. No acute fracture or traumatic malalignment of the cervical, thoracic, or lumbar spine. Dmitry Terrazas MD., have reviewed this study and agree with the above report. Performing Organization Address City/State/Zipcode Ph one Number PACS/VR/DOSE * CT LUMBAR [...] uncinate spurs. These f indings are of fudw-ox-tedpweyu severity, for example at C4-C5. CT THORACIC [...] No acute fracture or subluxation is identified. Oxee-rb-xwtawaps facet arth ropathy seen in the nonfused [...] and uncinate spurs. These findings are of efgn-eq-hotswixh severity, for example at C4-C5. CT THORACIC [...] No acute fracture or subluxation is identified. Ydkg-wl-zkugiodg facet arthropathy seen in the nonfused lumbar [...] uncinate spurs. These f indings are of kcje-vj-gvsfgujl severity, for example at C4-C5. CT THORACIC [...] No acute fracture or subluxation is identified. Kizi-hf-xvtbilqk facet arth ropathy seen in the nonfused [...] and uncinate spurs. These findings are of dhdi-zc-apwtsrqn severity, for example at C4-C5. CT THORACIC [...] No acute fracture or subluxation is identified. Vzwu-rw-qrayniwx facet arthropathy seen in the nonfused lumbar [...] uncinate spurs. These f indings are of zxhe-aa-zrlombmv severity, for example at C4-C5. CT THORACIC [...] No acute fracture or subluxation is identified. Nmds-xl-tdylrxlt facet arth ropathy seen in the nonfused [...] and uncinate spurs. These findings are of ejkv-ns-fmtfyggx severity, for example at C4-C5. CT THORACIC [...] No acute fracture or subluxation is identified. Yxkv-hr-dpdsyxvy facet arthropathy seen in the nonfused lumbar spine. No high-grade spinal canal stenosis is appreciated. IMPRESSION No acute intracranial abnormality. No acute fracture or traumatic malalignment of the cervical, thoracic, or lumbar spine. IDmitry MD., have reviewed this study and agree with the above report. Performing Organization Address City/State/Zipcode Ph one Number PACS/VR/DOSE * EMERGENCY SERVICES AGREEMENTS AND AUTHORIZATIONS (10/17/2018 12:01 AM CDT) Specimen Performing Organization Address City/State/Zipcode Ph one Number HIM * EMERGENCY DEPARTMENT DOCUMENTS (10/17/2018 12:01 AM CDT) Specimen Performing Organization Address City/State/Zipcode Ph one Number HIM from Last 3 Months Insurance Type Payer Benefit Subscriber ID Effective Phone Address Plan / Dates Group Medicaid [employer] [place] [employer] xxxxxxxxx 2015-P [place] [facility] [address] [place] [address] (Home) [place] [address] Advance Directives Relationship Healthcare Agent Relationship Communicat ion Name Significant Other Primary healthcare agent [phone] (Home) [email or web address] Luanne Carson Child First alternate healthcare agent Rico Christie
--- OUTSIDE RECORDS SUMMARY | 2019-11-04 15:49 | XMS REPORT | Summary of Care ---
Author Author [facility] - Health Organization [facility] - Health Address Unknown Phone Unavailable Care Team Providers Care Legal Executive Assistant Name Role Phone Gabriella Coyle MD 12 Unavailable Pcp, Patient Does Not Have A PCP [phone] Reason for Visit * Reason Comments ED F/U Encounter Details Care Team Description Date Type Department Michela Caldwell, RN [address] [place] [address] ED F/U 10/18/2018 Patient [facility] Allergies Comments Active Allergy Reactions Severity Noted Date Penicillins Rash 11/09/2015 documented as of this encounter (statuses as of 10/18/2018) Medications End Date Status Medication Sig Dispensed [...] times daily. Active fluticasone 50 Use 1 [place] 16 g 0 mcg/actuation nasal in each 9 sprayIndications: Acute nostril 2 rhinosinusitis (two) times daily. 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 Pt informed 03/13/16.- [...] as of this encounter (statuses as of 10/18/2018) Resolved Problems Problem Noted Date Resolved Date [...] as of this encounter (statuses as of 10/18/2018) Immunizations Name Administration Dates Next Due DTAP [...] Signs Not on filedocumented in this encounter Progress Notes * Michela Caldwell RN - 10/18/2018 2:28 PM CDT Michela Caldwell RN, Milk Treater, called Harvey Christie is a 58 year ol d male following ED discharge on 10/17/18; patient has had 3 ED visits in 90 day s. Are you having any symptoms? yes Do you have all of your medications? yes Have you scheduled a follow up appointment with your physician? no Do you need assistance with scheduling a follow up appointment? No; patient decl ined and states he does not want a [facility] PCP. Do you have transportation to your appointment? yes Do you have any questions or concerns? no KRISTIN Correa (Josey), RN Nurse Milk TreaterAircraft Structural Design EngineerAtrium Health [facility] Team [phone] documented in this encounter Plan of Treatment Care Team Description Date Type Specialty Screening/Bon [facility] Audio 12/03/2018 Ancillary Visit Audiology [...] Implanted Type Area Manufactur er 04/26/20172017- / [id number] / [id number] Dbm Putty Maxxeus 10cc Cts #2017-40 BONE Left: Spin e [facility] - [id number] Tissue Implanted: Qty: 1 on 11/10/2015 by Services Harrison Wise MD at [facility] 07/07/2020 1234-12 / [id number] / [id number] Cancellous Crushed, Community BONE Left: Spine [facility] Tissue Services (1 10mm) Freeze Tissue Dried 60.0 Cc #1234-12 - S0000 Services Implanted: Qty: 1 on 11/10/2015 by Harrison Wise MD at [facility] 10/16/2021 1235-12 / [id number] / [id number] Cancellous Crushed, [facility] BONE N/A: [facility] Tissue Services (1 10mm) Freeze Tissue Dried 90.0 Cc #1235-12 - Services [id number] Implanted: Qty: 1 on 01/19/2017 by Harrison Wise MD at [facility] 09/22/2018 / [id number] / [id number] Dbm Putty Maxxeus 10cc Cts #2017- BONE N/A: [facility] - [id number] Tissue Implanted: Qty: 1 on 01/19/2017 by Services Harrison Wise MD at [facility] 07/23/2018526728 / / Duraseal, Covidien Improved Dural Duraseal N/A: Spine Tyco/Covid Sealant System 5ml #830044 - S00 ien Implanted: Qty: 1 on 08/08/2017 by Harrison Wise MD at [facility] 01/19/2027 [id number] / 0 / [id number] Yareli 4.75 Ccm Ns Curved 70mm Solara YARELI N/A: Back Medtronic Medtronic #[id number] - S0 Implanted: Qty: 2 on 01/19/2017 by Harrison Wise MD at [facility] 11/09/2025 [id number] / 0000 / [id number] Screw Solera 6.5x30mm Medtronic SCREW Left: Spine Medtronic #[id number] - S0000 Implanted: Qty: 2 on 11/10/2015 by Harrison Wise MD at [facility] 11/09/2025 [id number] / 0000 / [id number] Screw, Medtronic Solara 6.5x45 SCREW Left: Spine Medtronic #[id number] - S0000 Implanted: Qty: 2 on 11/10/2015 by Harrison Wise MD at [facility] 01/19/2027 [id number] / 0 / [id number] Screw Solera 8.5x30mm Mas Medtronic SCREW N/A: Back Medtronic #[id number] Implanted: Qty: 2 on 01/19/2017 by Harrison Wise MD at [facility] 01/19/2027 [id number] / 0 / [id number] Screw, Medtronic Solara 6.5x45 SCREW N/A: Back Medtronic #[id number] - S0 Implanted: Qty: 2 on 01/19/2017 by Harrison Wise MD at [facility] 08/09/2027 [id number] / 00 / 00 Screw, Medtronic # Set Break Off Ti SCREW N/A: Spine Medtronic #[id number] - S00 Implanted: Qty: 3 on 08/08/2017 by Harrison Wise MD at [facility] Description: No charge for any implant per Hortensia Bell 11/09/2025 [id number] / 000 / [id number] Screw Solera 4.75 Ti Ns Break Off Left: Spine Med tronic Medtronic #[id number] - S000 Implanted: Qty: 4 on 11/10/2015 by Harrison Wise MD at [facility] 11/09/2025 [id number] / 0000 / [id number] Yareli 4.75 Ccm Ns Curved 45mm Solera Left: Spine Me dtronic Medtronic #[id number] - S0000 Implanted: Qty: 2 on 11/10/2015 by Harrison Wise MD at [facility] 01/19/2027 [id number] / 0 / [id number] Screw Solera 4.75 Ti Ns Break Off N/A: Back Med tronic Medtronic #[id number] - S0 Implanted: Qty: 6 on 01/19/2017 by Harrison Wise MD at [facility] 01/19/2027 [id number] / 0 / [id number] Screw Solera 7.5x45mm Medtronic N/A: Back Medtr onic #[id number] - S0 Implanted: Qty: 2 on 01/19/2017 by Harrison Wise MD at [facility] documented as of this encounter Results Not on filedocumented in this encounter Insurance Type Payer Benefit Subscriber ID Effective Phone Address Plan / Dates Group Medicaid [facility] AMER[employer] xxxxxxxxx 2015Rashida [facility] [address] [place] [address] documented as of this encounter Advance Directives Relationship Healthcare Agent Relationship Communicat ion Name Significant Other Primary healthcare agent [phone] (Home) [email or web address] Luanne Carson Child First alternate healthcare agent Rico Christie
--- OUTSIDE RECORDS SUMMARY | 2019-11-04 15:49 | XMS REPORT | Clinical Summary ---
Author Author [facility] - Health Organization [facility] - Health Address Unknown Phone Unavailable Care Team Providers Care Consolidator Name Role Phone Gabriella Coyle MD 12 Unavailable Pcp, Patient Does Not Have A PCP [phone] Allergies Comments Active Allergy Reactions Severity Noted [...] times daily. Active fluticasone 50 Use 1 [place] 16 g 0 mcg/actuation nasal in each [...] Added automatically from request for buzz nguyen [id number] Wound dehiscence 08/23/2017 Hardware complicating wound infection 08/18/2017 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 09/21/2016 Overview: Added automatically from request for buzz nguyen [id number] Chronic diastolic congestive heart failure 7 Narcotic abuse 03/14/2016 Overview: No further narcotic prescriptions from [facility] Family Medicine. Pt informed 03/13/16.- [...] cancer; History of cervical fracture; History of [place] (myocardial infarction); Atherosclerosis of [place] coronary artery of [place] heart without angina pectoris; History of transient [...] ED utilization) 08/07/2018 Telephone Public Health & [facility] Preventive Medicine Jericho Mejia MD Authorization [...] Care Team Description Date Type Specialty Screening/Bon [facility] Audio 12/03/2018 Ancillary Visit Audiology Health Maintenance [...] Implanted Type Area Manufactur er 04/26/2017 / [id number] / [id number] Dbm Putty Maxxeus 10cc Cts #2018-40 BONE Left: Spin e [facility] - [id number] Tissue Implanted: Qty: 1 on 11/10/2015 by Services Harrison Wise MD at [facility] 07/07/2020 1234-12 / [id number] / [id number] Cancellous Crushed, Community BONE Left: Spine [facility] Tissue Services (1 10mm) Freeze Tissue Dried 60.0 Cc #1234-12 - S0000 Services Implanted: Qty: 1 on 11/10/2015 by Harrison Wise MD at [facility] 10/16/2021 1235-12 / [id number] / [id number] Cancellous Crushed, Community BONE N/A: Back [facility] Tissue Services (1 10mm) Freeze Tissue Dried 90.0 Cc #1235-12 - Services [id number] Implanted: Qty: 1 on 01/19/2017 by Harrison Wise MD at [facility] 09/22/2018 2018-40 / [id number] / [id number] Dbm Putty Maxxeus 10cc Cts #2018-40 BONE N/A: Back [facility] - [id number] Tissue Implanted: Qty: 1 on 01/19/2017 by Services Harrison Wise MD at [facility] 07/23/2018709889 / / Duraseal, Covidien Improved Dural Duraseal N/A: Spine Tyco/Covid Sealant System 5ml #342457 - S00 ien Implanted: Qty: 1 on 08/08/2017 by Harrison Wise MD at [facility] 01/19/2027 [id number] / 0 / [id number] Yareli 4.75 Ccm Ns Curved 70mm Solara YARELI N/A: Back Medtronic Medtronic #[id number] - S0 Implanted: Qty: 2 on 01/19/2017 by Harrison Wise MD at [facility] 11/09/2025 [id number] / 0000 / [id number] Screw Solera 6.5x30mm Medtronic SCREW Left: Spine Medtronic #[id number] - S0000 Implanted: Qty: 2 on 11/10/2015 by Harrison Wise MD at [facility] 11/09/2025 [id number] / 0000 / [id number] Screw, Medtronic Solara 6.5x45 SCREW Left: Spine Medtronic #[id number] - S0000 Implanted: Qty: 2 on 11/10/2015 by Harrison Wise MD at [facility] 01/19/2027 [id number] / 0 / [id number] Screw Solera 8.5x30mm Mas Medtronic SCREW N/A: Back Medtronic #[id number] Implanted: Qty: 2 on 01/19/2017 by Harrison Wise MD at [facility] 01/19/2027 [id number] / 0 / [id number] Screw, Medtronic Solara 6.5x45 SCREW N/A: Back Medtronic #[id number] - S0 Implanted: Qty: 2 on 01/19/2017 by Harrison Wise MD at [facility] 08/09/2027 [id number] / 00 / 00 Screw, Medtronic # Set Break Off Ti SCREW N/A: Spine Medtronic #[id number] - S00 Implanted: Qty: 3 on 08/08/2017 by Harrison Wise MD at [facility] Description: No charge for any implant per Hortensia Bell 11/09/2025 [id number] / 000 / [id number] Screw Solera 4.75 Ti Ns Break Off Left: Spine Med tronic Medtronic #[id number] - S000 Implanted: Qty: 4 on 11/10/2015 by Harrison Wise MD at [facility] 11/09/2025 [id number] / 0000 / [id number] Yareli 4.75 Ccm Ns Curved 45mm Solera Left: Spine Me dtronic Medtronic #[id number] - S0000 Implanted: Qty: 2 on 11/10/2015 by Harrison Wise MD at [facility] 01/19/2027 [id number] / 0 / [id number] Screw Solera 4.75 Ti Ns Break Off N/A: Back Med tronic Medtronic #[id number] - S0 Implanted: Qty: 6 on 01/19/2017 by Harrison Wise MD at [facility] 01/19/2027 [id number] / 0 / [id number] Screw Solera 7.5x45mm Medtronic N/A: Back Jennifer flynn #[id number] - S0 Implanted: Qty: 2 on 01/19/2017 by Harrison Wise MD at [facility] Procedures Comments Procedure Name Priority Date/Time [...] uncinate spurs. These f indings are of mjmn-kk-purfjeni severity, for example at C4-C5. CT THORACIC [...] No acute fracture or subluxation is identified. Tybv-ge-xiwogoqp facet arth ropathy seen in the nonfused [...] and uncinate spurs. These findings are of sswc-cw-pftjprzk severity, for example at C4-C5. CT THORACIC [...] No acute fracture or subluxation is identified. Ckvf-pl-tpfxvtqf facet arthropathy seen in the nonfused lumbar [...] uncinate spurs. These f indings are of qkde-ji-qxhkbpcv severity, for example at C4-C5. CT THORACIC [...] No acute fracture or subluxation is identified. Anrq-be-wdvwdkem facet arth ropathy seen in the nonfused [...] and uncinate spurs. These findings are of esjs-up-uvcvrqfz severity, for example at C4-C5. CT THORACIC [...] No acute fracture or subluxation is identified. Mdyr-dn-pthufbpo facet arthropathy seen in the nonfused lumbar [...] uncinate spurs. These f indings are of awkj-qf-yenbqhzo severity, for example at C4-C5. CT THORACIC [...] No acute fracture or subluxation is identified. Fmhm-tr-sasqrqjr facet arth ropathy seen in the nonfused [...] and uncinate spurs. These findings are of tsvz-ty-kefgakcy severity, for example at C4-C5. CT THORACIC [...] No acute fracture or subluxation is identified. Tgqs-lh-cmspixpo facet arthropathy seen in the nonfused lumbar [...] uncinate spurs. These f indings are of euyw-hs-llhikupe severity, for example at C4-C5. CT THORACIC [...] No acute fracture or subluxation is identified. Ogtt-gb-xsgqwsej facet arth ropathy seen in the nonfused [...] and uncinate spurs. These findings are of blgf-gj-nkvknyxv severity, for example at C4-C5. CT THORACIC [...] No acute fracture or subluxation is identified. Iubs-je-lzslotjt facet arthropathy seen in the nonfused lumbar [...] / Dates Group Medicaid [employer] [place] [employer] xxxxxxxxx 2015-P [place] [facility] [address] [place] [address] (Home) [place] [address] Advance Directives Relationship Healthcare Agent Relationship Communicat ion Name Significant Other Primary healthcare agent [phone] (Home) [email or web address] Luanne Carson Child First alternate healthcare agent Rico Christie
--- OUTSIDE RECORDS SUMMARY | 2019-11-04 15:49 | XMS REPORT | Clinical Summary ---
Author Author [facility] - Health Organization [facility] - Health Address Unknown Phone Unavailable Care Team Providers Care Photocopying Equipment Mechanic Name Role Phone Gabriella Coyle MD 12 Unavailable Pcp, Patient Does Not Have A PCP [phone] Allergies Comments Active Allergy Reactions Severity Noted [...] times daily. 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 Pt informed 03/13/16.- Angelica [...] cancer; History of cervical fracture; History of [place] (myocardial infarction); Atherosclerosis of [place] coronary artery of [place] heart without angina pectoris; History of transient [...] HEALTH MAINTENANCE (High ED utilization) 08/07/2018 Telephone [facility] Preventive Medicine [...] Care Team Description Date Type Specialty Screening/[facility] Audio 12/03/2018 Ancillary Visit Audiology Health [...] Implanted Type Area Manufactur er 04/26/20172017-40 / [id number] / [id number] Dbm Putty Jefferyxmanolos 10 Cts #2018-40 BONE Left: Spin e [facility] - [id number] Tissue Implanted: Qty: 1 on 11/10/2015 by Services Harrison Wise MD at [facility] 07/07/2020 1234-12 / [id number] / [id number] Cancellous Crushed, Community BONE Left: Spine [facility] Tissue Services (1 10mm) Freeze Tissue Dried 60.0 Cc #1234-12 - [id number] Services Implanted: Qty: 1 on 11/10/2015 by Harrison Wise MD at [facility] 10/16/2021 1235-12 / [id number] / [id number] Cancellous Crushed, Community BONE N/A: Back [facility] Tissue Services (1 10mm) Freeze Tissue Dried 90.0 Cc #1235-12 - Services [id number] Implanted: Qty: 1 on 01/19/2017 by Harrison Wise MD at [facility] 09/22/2018 2018-40 / [id number] / [id number] Dbm Putty Maxxeus 10cc Cts #2018-40 BONE N/A: Back [facility] - [id number] Tissue Implanted: Qty: 1 on 01/19/2017 by Services Harrison Wise MD at [facility] 07/23/[id number] / 00 / 00 Duraseal, Covidien Improved Dural Duraseal N/A: Spine Tyco/Covid Sealant System 5ml #[id number] - S00 ien Implanted: Qty: 1 on 08/08/2017 by Harrison Wise MD at [facility] 01/19/2027 [id number] / 0 / [id number] Yareli 4.75 Ccm Ns Curved 70mm Solara YARELI N/A: Back Medtronic Medtronic #[id number] - S0 Implanted: Qty: 2 on 01/19/2017 by Harrison Wise MD at [facility] 11/09/2025 [id number] / 0000 / [id number] Screw Solera 6.5x30mm Medtronic SCREW Left: Spine Medtronic #[id number] - [id number] Implanted: Qty: 2 on 11/10/2015 by Harrison Wise MD at [facility] 11/09/2025 [id number] / 0000 / [id number] Screw, Medtronic Solara 6.5x45 SCREW Left: Spine Medtronic #[id number] - [id number] Implanted: Qty: 2 on 11/10/2015 by Harrison Wise MD at [facility] 01/19/2027 [id number] / 0 / [id number] Screw Solera 8.5x30mm Mas Medtronic SCREW N/A: Back Medtronic #[id number] Implanted: Qty: 2 on 01/19/2017 by Harrison Wise MD at [facility] 01/19/2027 [id number] / 0 / [id number] Screw, Medtronic Solara 6.5x45 SCREW N/A: Back Medtronic #[id number] - S0 Implanted: Qty: 2 on 01/19/2017 by Harrison Wise MD at [facility] 08/09/2027 [id number] / 00 / 00 Screw, Medtronic # Set Break Off Ti SCREW N/A: Spine Medtronic #[id number] - S00 Implanted: Qty: 3 on 08/08/2017 by Harrison Wise MD at [facility] Description: No charge for any implant per Hortensia Bell Rep 11/09/2025 [id number] / 000 / [id number] Screw Solera 4.75 Ti Ns Break Off Left: Spine Med tronic Medtronic #[id number] - S000 Implanted: Qty: 4 on 11/10/2015 by Harrison Wise MD at [facility] 11/09/2025 [id number] / 0000 / [id number] Yareli 4.75 Ccm Ns Curved 45mm Solera Left: Spine Me dtronic Medtronic #[id number] - [id number] Implanted: Qty: 2 on 11/10/2015 by Harrison Wise MD at [facility] 01/19/2027 [id number] / 0 / [id number] Screw Solera 4.75 Ti Ns Break Off N/A: Back Med tronic Medtronic #[id number] - S0 Implanted: Qty: 6 on 01/19/2017 by Harrison Wise MD at [facility] 01/19/2027 [id number] / 0 / [id number] Screw Solera 7.5x45mm Medtronic N/A: Back Medtr onic #[id number] - S0 Implanted: Qty: 2 on 01/19/2017 by Harrison Wise MD at [facility] Procedures Comments Procedure Name Priority Date/Time [...] uncinate spurs. These f indings are of jvsk-ju-zbndoghg severity, for example at C4-C5. CT THORACIC [...] No acute fracture or subluxation is identified. Trlr-lc-aukflpvm facet arth ropathy seen in the nonfused [...] and uncinate spurs. These findings are of lmkj-jf-mmtpyuvy severity, for example at C4-C5. CT THORACIC [...] No acute fracture or subluxation is identified. Kbjf-lw-nayndrna facet arthropathy seen in the nonfused lumbar spine. No high-grade spinal canal stenosis is appreciated. IMPRESSION No acute intracranial abnormality. No acute fracture or traumatic malalignment of the cervical, thoracic, or lumbar spine. IDmitry MD., have reviewed this study and agree with the above report. Performing Organization Address City/State[facility] Ph one Number PACS/VR/DOSE * CT LUMBAR [...] uncinate spurs. These f indings are of cess-fi-rdfwmfrb severity, for example at C4-C5. CT THORACIC [...] No acute fracture or subluxation is identified. Hglc-ie-dpqjaryg facet arth ropathy seen in the nonfused lumbar spine. No high-grade spinal canal steno sis is appreciated. Procedure Note [facility], Radiant Results Inft User - 10/18/2018 [...] and uncinate spurs. These findings are of ftly-lm-hyimlisr severity, for example at C4-C5. CT THORACIC [...] No acute fracture or subluxation is identified. Lped-ic-adlrcajb facet arthropathy seen in the nonfused lumbar [...] uncinate spurs. These f indings are of sghv-xo-mdpktbzl severity, for example at C4-C5. CT THORACIC [...] No acute fracture or subluxation is identified. Abqu-ss-asvrwtce facet arth ropathy seen in the nonfused [...] and uncinate spurs. These findings are of cwnf-sq-hwrcplxl severity, for example at C4-C5. CT THORACIC [...] No acute fracture or subluxation is identified. Ngkb-fv-drhjppvq facet arthropathy seen in the nonfused lumbar [...] uncinate spurs. These f indings are of whcm-ip-bsopjyne severity, for example at C4-C5. CT THORACIC [...] No acute fracture or subluxation is identified. Nbeg-yu-ryxoclwr facet arth ropathy seen in the nonfused [...] and uncinate spurs. These findings are of ifmp-gh-mawacodm severity, for example at C4-C5. CT THORACIC [...] No acute fracture or subluxation is identified. Mcrw-nt-vclmrtkc facet arthropathy seen in the nonfused lumbar spine. No high-grade spinal canal stenosis is appreciated. IMPRESSION No acute intracranial abnormality. No acute fracture or traumatic malalignment of the cervical, thoracic, or lumbar spine. IDmitry MD., have reviewed this study and agree with the above report. Performing Organization Address City/State/[facility] Ph one Number PACS/VR/DOSE * EMERGENCY SERVICES AGREEMENTS AND AUTHORIZATIONS (10/17/2018 12:01 AM CDT) Specimen Performing Organization Address City/State/Zipcode Ph one Number HIM * EMERGENCY DEPARTMENT DOCUMENTS (10/17/2018 12:01 AM CDT) Specimen Performing Organization Address City/State/Zipcode Ph one Number HIM from Last 3 Months Insurance Type Payer Benefit Subscriber ID Effective Phone Address Plan / Dates Group Medicaid [employer] [place] [employer] xxxxxxxxx 2015-P [place] [facility] [place] [facility] [id number] [place] [address] (Home) [place] [address] Advance Directives Relationship Healthcare Agent Relationship Communicat ion Name Significant Other Primary healthcare agent [phone] (Home) [email or web address] Luanne Carson Child First alternate healthcare agent Rico Christie
--- OUTSIDE RECORDS SUMMARY | 2019-11-04 15:50 | XMS REPORT | Summary of Care ---
Author Author [facility] - Health Organization [facility] - Health Address Unknown Phone Unavailable Care Team Providers Care Human Performance Professor Name Role Phone Gabriella Coyle MD 12 Unavailable Pcp, Patient Does Not Have A PCP [phone] Reason for Referral * MRI/CAT Scan (STAT) Referred By Contact Referred To Contact Status Reason Specialty Diagnoses / Procedures Adrian Armas [address] [address] New Request Diagnostic Diagnoses Radiology Shortness of breath P rocedures CT CHEST PULMONARY ANGIOGRAM CT THORAX W CONTRAST Reason for Visit * Reason Comments Shortness of Breath Arm Pain left * Auth/Cert Referred By Contact Referred To Contact Status Reason Specialty Diagnoses / Procedures [facility] [address] [place] [id number] Emergency Medicine Encounter Details Care Team Description Date Type Department Adrian Armas [address] [address] Shortness of breath (Primary Dx) 11/12/2018 Emergency [facility] ment [address] [place] [phone] Allergies Comments Active Allergy Reactions Severity Noted Date Penicillins Rash 11/09/2015 documented as of this encounter (statuses as of 11/12/2018) Medications End Date Status Medication Sig Dispensed [...] times daily. Active fluticasone 50 Use 1 [place] 16 g 0 mcg/actuation nasal in each [...] 100 Take 1 60 capsule 0 0 09/13/201 mg capsuleIndications: capsule by 9 NSAID induced [...] as of this encounter (statuses as of 11/12/2018) Active Problems Problem Noted Date Infection 09/28/2017 Chronic midline low back pain without sciatica 09/27 Overview: Added automatically from request for gerber sunithaery [id number] Wound dehiscence 08/23/2017 Hardware complicating wound infection 08/18/2017 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 09/21/2016 Overview: Added automatically from request for gerber sunithapino [id number] Chronic diastolic congestive heart failure 7 Narcotic [...] as of this encounter (statuses as of 11/12/2018) Resolved Problems Problem Noted Date Resolved Date [...] as of this encounter (statuses as of 11/12/2018) Immunizations Name Administration Dates Next Due DTAP [...] Signs Reading Time Taken Comments Vital Sign 154/95 11/12/2018 6:24 PM CDT Blood Pressure 89 11/12/2018 6:24 PM CDT Pulse 36.5 C (97.7 F) 11/12/2018 6:24 PM CDT Temperature 22 11/12/2018 6:24 PM CDT Respiratory Rate 95% 11/12/2018 6:24 PM CDT Oxygen Saturation - - Inhaled Oxygen Concentration 90.7 kg (200 lb) 11/12/2018 6:24 PM CDT Weight - - Height 31.32 10/28/2018 10:40 AM CDT Body Mass Index documented in this encounter Plan of Treatment Care Team Description Date Type Specialty Screening/[facility] Audio 12/03/2018 Ancillary Visit Audiology Order Schedule Name Type Priority Associated Diag noses ONCE for 1 Occurrences starting 11/13/19 19 until 11/12/2018 EKG-12 LEAD ROUTINE HEART STATION STAT ONCE for 1 Occurrences starting 11/13/19 19 until 11/12/2018 CT CHEST PULMONARY IMAGING STAT Shortness o f breath ANGIOGRAM Health Maintenance Due Date Last Done Comments HEPATITIS C (HCV) SCREEN 1960 Zoster Recombinant 08/26/2011 Vaccine (SHINGRIX) (1 of 2) PNEUMOCOCCAL 0-64 YEARS 05/21/2016 03/26/2016, COMBINED SERIES (2 of 3 - PPSV23) INFLUENZA VACCINE 11/24/2018 12/24/2016, 016, 10/25/2015, (Retired version) Additional history exists COLONOSCOPY 03/06/2026 03/06/2016 DTaP,Tdap,and Td Vaccines 03/26/2026 03/26/2016, 03/26/2016 (2 - Tdap) documented as of this encounter Implants Device Identifier Shelf Expiration Date Model / Serial / L ot Implanted Type Area Manufactur er 04/26/20172017-40 / [id number] / [id number] Dbm Putty Maxxeus 10cc Cts # BONE Left: Spin e [facility] - [id number] Tissue Implanted: Qty: 1 on 11/10/2015 by Services Harrison Wise MD at [facility] 07/07/2020 1234-12 / [id number] / [id number] Cancellous Crushed, [facility] BONE Left: Spine [facility] Tissue Services (1 10mm) Freeze Tissue Dried 60.0 Cc #1234-12 - S0000 Services Implanted: Qty: 1 on 11/10/2015 by Harrison Wise MD at [facility] 10/16/2021 1235-12 / [id number] / [id number] Cancellous Crushed, [facility] BONE N/A: Back [facility] Tissue Services (1 10mm) Freeze Tissue Dried 90.0 Cc #1235-12 - Services [id number] Implanted: Qty: 1 on 01/19/2017 by Harrison Wise MD at [facility] 09/22/2018 / [id number] / [id number] Dbm Putty Maxxeus 10cc Cts # BONE N/A: Back [facility] - [id number] Tissue Implanted: Qty: 1 on 01/19/2017 by Services Harrison Wise MD at [facility] 07/23/2018 [id number] / Duraseal, Covidien Improved Dural Duraseal N/A: Spine Tyco/Covid Sealant System 5ml #[id number] - S00 ien Implanted: Qty: 1 on 08/08/2017 by Harrison Wise MD at [facility] 01/19/2027 [id number] / 0 / [id number] Yareli 4.75 Ccm Ns Curved 70mm Solara YARELI N/A: Back Medtronic Medtronic #[id number] - S0 Implanted: Qty: 2 on 01/19/2017 by Harrison Wise MD at [facility] 11/09/2025 [id number] / 0000 / [id number] Screw Solera 6.5x30mm Medtronic SCREW Left: Spine Medtronic #[id number] - [id number] Implanted: Qty: 2 on 11/10/2015 by Harrison Wise MD at [facility] 11/09/2025 [id number] / 0000 / [id number] Screw, Medtronic Solara 6.5x45 SCREW Left: Spine Medtronic #[id number] - [id number] Implanted: Qty: 2 on 11/10/2015 by Harrison Wise MD at [facility] 01/19/2027 [id number] / 0 / [id number] Screw Solera 8.5x30mm Mas Medtronic SCREW N/A: Back Medtronic #[id number] Implanted: Qty: 2 on 01/19/2017 by Harrison Wise MD at [facility] 01/19/2027 [id number] / 0 / [id number] Screw, Medtronic Solara 6.5x45 SCREW N/A: Back Medtronic #[id number] - S0 Implanted: Qty: 2 on 01/19/2017 by Harrison Wise MD at [facility] 08/09/2027 [id number] / 00 / 00 Screw, Medtronic # Set Break Off Ti SCREW N/A: Spine Medtronic #[id number] - S00 Implanted: Qty: 3 on 08/08/2017 by Harrison Wise MD at [facility] Description: No charge for any implant per Hortensia Bell Rep 11/09/2025 [id number] / 000 / [id number] Screw Solera 4.75 Ti Ns Break Off Left: Spine Med tronic Medtronic #[id number] - S000 Implanted: Qty: 4 on 11/10/2015 by Harrison Wise MD at [facility] 11/09/2025 [id number] / 0000 / [id number] Yareli 4.75 Ccm Ns Curved 45mm Solera Left: Spine Me dtronic Medtronic #[id number] - [id number] Implanted: Qty: 2 on 11/10/2015 by Harrison Wise MD at [facility] 01/19/2027 [id number] / 0 / [id number] Screw Solera 4.75 Ti Ns Break Off N/A: Back Med tronic Medtronic #[id number] - S0 Implanted: Qty: 6 on 01/19/2017 by Harrison Wise MD at [facility] 01/19/2027 [id number] / 0 / [id number] Screw Solera 7.5x45mm Medtronic N/A: Back Medtr onic #[id number] - S0 Implanted: Qty: 2 on 01/19/2017 by Harrison Wise MD at [facility] documented as of this encounter Procedures Comments Procedure Name Priority Date/Time Associated Diag nosis CBC WITH DIFFERENTIAL STAT 11/12/2018 Shortnes s of breath 6:41 PM CDT CBC WITH DIFF Routine 11/12/2018 Shortness of br eath 6:41 PM CDT BASIC METABOLIC PANEL STAT 11/12/2018 Shortnes s of breath (NA, K, CL, CO2, GLUCOSE, 6:41 PM CDT BUN, CREATININE, CA) TROPONIN I STAT 11/12/2018 Shortness of br eath 6:41 PM CDT documented in this encounter Results * CBC WITH DIFFERENTIAL (11/12/2018 6:41 PM CDT) WBC 7.15 4.20 - 10.70 [facility] 10*3/L SERVICES RBC 4.51 4.26 - 5.52 10*6/L [facility] HGB 12.3 12.2 - 16.4 g/dL [facility] RY SERVICES HCT 38.3 (L) 38.4 - 49.3 % [facility] MCV 84.9 81.7 - 95.6 fL [facility] MCH 27.3 26.1 - 32.7 pg [facility] MCHC 32.1 31.2 - 35.0 g/dL [facility] R[facility] RDW-SD 45.9 38.5 - 51.6 fL [facility] RDW-CV 15.2 12.1 - 15.4 % [facility] PLT 328 150 - 328 10*3/L [facility] MPV 8.9 (L) 9.8 - 13.0 fL [facility] NRBC/100 WBC 0.0 0.0 - 10.0 /100 WBCs [facility] NRBC x10^3 <0.01 10*3/L [facility] GRAN MAT (NEUT) 65.1 % [facility] Y % SERVICES IMM GRAN % 2.50 % [facility] LYMPH % 23.1 % [facility] MONO % 5.6 % [facility] EOS % 3.1 % [facility] BASO % 0.6 % [facility] GRAN MAT 4.66 1.99 - 6.95 10*3/uL [facility] x10^3(ANC) SERVICES IMM GRAN x10^3 0.18 (H) 0.00 - 0.06 10*3/uL [facility] LYMPH x10^3 1.65 1.09 - 3.23 10*3/uL [facility] MONO x10^3 0.40 0.36 - 1.02 10*3/uL [facility] EOS x10^3 0.22 0.06 - 0.53 10*3/uL [facility] BASO x10^3 0.04 0.01 - 0.09 10*3/uL [facility] SERVICES Specimen Blood - VENOUS Performing Organization Address City/State/Zipcode Ph one Number [facility] CLIA: [id number], [address] [place] [address] [facility] * Troponin I (11/12/2018 6:41 PM CDT) TROPONIN I 0.001 <=0.034 ng/mL [facility] Specimen Blood - VENOUS Narrative Performed At Equal or Less than 0.034 ng/ml---Normal [facility] Note: Cardiac troponin begins to rise 3-4 hours after the onset of ischemia. SERVICES Repeat in 4-6 hours if the sample was d rawn within 3-4 hours of the onset of the symptom and found normal. Between 0.035 and 0.120 ng/mL--- Border line. Questionable myocardial injury or necrosis Note: Serial measurement may be necessa ry to confirm or exclude the diagnosis of myocardial injury or necrosis; Clinical correlation (symptoms, EKGs, imaging studies, and others) required; Repeat i n 4-6 hours if clinically indicated. Equal or Higher than 0.121 ng/mL---Abno rmal. Myocardial Injury or Necrosis Likely Biotin has been reported to cause a neg ative bias, interpret results relative to patient's use of biotin. Performing Organization Address City/State/Zipcode Ph one Number [facility] CLIA: [id number], [address] [place] [address] [facility] * Basic Metabolic Panel (NA, K, CL, CO2, GLUCOSE, BUN, CREATININE, CA) (11/12/2018 6:41 PM CDT) NA 142 135 - 145 mmol/L [facility] SERVICES K 3.9 3.5 - 5.0 mmol/L [facility] SERVICES CL 109 (H) 98 - 108 mmol/L [facility] Y SERVICES CO2 TOTAL 26 23 - 31 mmol/L [facility] AGAP 7 2 - 16 [facility] BUN 12 7 - 23 mg/dL [facility] GLUCOSE 121 (H) 70 - 110 mg/dL [facility] CREATININE 0.84 0.60 - 1.25 mg/dL [facility] ORY SERVICES CALCIUM 9.5 8.6 - 10.6 mg/dL [facility] SERVICES eGFR 94.2 mL/min/1.73m2 [facility] Calculation SERVICES (Non-) eGFR 114.2 mL/min/1.73m2 [facility] Calculation SERVICES () Specimen Blood - VENOUS Narrative Performed At Association of Glomerular Filtration Rate (GFR) and S taging of Kidney Disease* [facility] + + +------ + SERVICES | GFR (mL/min/1.73 m2)| With Kidney Damage|Without Kidney Damage + + -------+ + |>90 |Stage one| Normal + + -------+ + |60-89 |Stage two| Decreased GFR + + -------+ + |30-59 |Stage three| Stage three + + -------+ + |15-29 |Stage four | Stage four + + -------+ + |<15 (or dialysis)|Stag e five | Stage five + + -------+ + *Each stage assumes the associated GFR level has been in effect for at least three months.Stages 1 to 5, with or without kidney disease, indicate chronic kidney disease. Notes: Determination of stages one and two (with eGFR >59mL/min/1.73 m2) requires estimation of kidney damage fo r at least three months as defined by structural or functional abnormalities of the kidney, manifested by either: Pathological abnormalities or Markers o f kidney damage (including abnormalities in the composition of the blood or urin e or abnormalities in imaging tests). 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 member approving Restricted medication: AIDA OWENS documented in this encounter Insurance Type Payer Benefit Subscriber ID Effective Phone Address Plan / Dates Group Medicaid [facility] [employer] xxxxxxxxx 2015-P P O [facility] [id number] [place] [phone] (Home) [place] [address] documented as of this encounter Advance Directives Relationship Healthcare Agent Relationship Communicat ion Name Significant Other Primary healthcare agent [phone] (Home) [email or web address] Luanne Carson Child First alternate healthcare agent Rico Christie"
--- OUTSIDE RECORDS SUMMARY | 2019-11-04 15:50 | XMS REPORT | Summary of Care ---
Author Author [facility] - Health Organization [facility] - Health Address Unknown Phone Unavailable Care Team Providers Care Cooker Syrup Name Role Phone Gabriella Coyle MD 12 Unavailable Pcp, Patient Does Not Have A PCP [phone] Reason for Visit * Reason Comments Notification Health maintenance Encounter Details Care Team Description Date Type Department Tammie Tomas, [address] [address] Notification (Health maintenance) 11/28/2018 Telephone [facility] [employer] ([employer]roprietary) [facility] s and Outreach [address] [place] [address] Allergies Comments Active Allergy Reactions Severity Noted Date Penicillins Rash 11/09/2015 documented as of this encounter (statuses as of 11/28/2018) Medications End Date Status Medication Sig Dispensed [...] times daily. Active fluticasone 50 Use 1 [place] 16 g 0 mcg/actuation nasal in each [...] as of this encounter (statuses as of 11/28/2018) Active Problems Problem Noted Date Infection 09/28/2017 Chronic midline low back pain without sciatica 09/27 Overview: Added automatically from request for buzz nguyen [id number] Wound dehiscence 08/23/2017 Hardware complicating wound infection 08/18/2017 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 09/21/2016 Overview: Added automatically from request for buzz nguyen [id number] Chronic diastolic congestive heart failure Narcotic abuse 03/14/2016 Overview: No further narcotic prescriptions from [facility] Family Medicine. Pt informed 03/13/16.- [...] as of this encounter (statuses as of 11/28/2018) Resolved Problems Problem Noted Date Resolved Date [...] as of this encounter (statuses as of 11/28/2018) Immunizations Name Administration Dates Next Due DTAP [...] Treatment Care Team Description Date Type Specialty Screening/Siobhan Crockett Audio 12/03/2018 Ancillary Visit Audiology Health Maintenance Due Date Last Done Comments HEPATITIS C (HCV) SCREEN 1960 Zoster Recombinant 08/26/2011 Vaccine (SHINGRIX) (1 of 2) PNEUMOCOCCAL 0-64 YEARS 05/21/2016 03/26/2016, COMBINED SERIES (2 of 3 - PPSV23) INFLUENZA VACCINE (#1) 2018 12/24/2016, 03/2015 COLONOSCOPY 03/06/2026 03/06/2016 DTaP,Tdap,and Td Vaccines 03/26/2026 03/26/2016, 03/26/2016 (2 - Tdap) documented as of this encounter Implants Device Identifier Shelf Expiration Date Model / Serial / L ot Implanted Type Area Manufactur er 04/26/2017 / [id number] / [id number] Dbm Putty Maxxeus 10cc Cts #2017- BONE Left: Spin e [facility] - [id number] Tissue Implanted: Qty: 1 on 11/10/2015 by Services Harrison Wise MD at [facility] 07/07/2020 1234-12 / [id number] / [id number] Cancellous Crushed, Community BONE Left: Spine [facility] Tissue Services (1 10mm) Freeze Tissue Dried 60.0 Cc #1234-12 - [id number] Services Implanted: Qty: 1 on 11/10/2015 by Harrison Wise MD at [facility] 10/16/2021 1235-12 / [id number] / [id number] Cancellous Crushed, Community BONE N/A: Back [facility] Tissue Services (1 10mm) Freeze Tissue Dried 90.0 Cc #1235-12 - Services [id number] Implanted: Qty: 1 on 01/19/2017 by Harrison Wise MD at [facility] 09/22/2018 / [id number] / [id number] Dbm Putty Maxxeus 10cc Cts # BONE N/A: Back [facility] - [id number] Tissue Implanted: Qty: 1 on 01/19/2017 by Services Harrison Wise MD at [facility] 07/23/2018233931 / Duraseal, Covidien Improved Dural Duraseal N/A: Spine Tyco/Covid Sealant System 5ml #[id number] - S00 ien Implanted: Qty: 1 on 08/08/2017 by Harrison Wise MD at [facility] 01/19/2027 [id number] / 0 / [id number] Yareli 4.75 Ccm Ns Curved 70mm Solara YARELI N/A: Back Medtronic Medtronic #[id number] - S0 Implanted: Qty: 2 on 01/19/2017 by Harrison Wise MD at [facility] 11/09/2025 [id number] / 0000 / [id number] Screw Solera 6.5x30mm Medtronic SCREW Left: Spine Medtronic #[id number] - [id number] Implanted: Qty: 2 on 11/10/2015 by Harrison Wise MD at [facility] 11/09/2025 [id number] / 0000 / [id number] Screw, Medtronic Solara 6.5x45 SCREW Left: Spine Medtronic #[id number] - [id number] Implanted: Qty: 2 on 11/10/2015 by Harrison Wise MD at [facility] 01/19/2027 [id number] / 0 / [id number] Screw Solera 8.5x30mm Mas Medtronic SCREW N/A: Back Medtronic #[id number] Implanted: Qty: 2 on 01/19/2017 by Harrison Wise MD at [facility] 01/19/2027 [id number] / 0 / [id number] Screw, Medtronic Solara 6.5x45 SCREW N/A: Back Medtronic #[id number] - S0 Implanted: Qty: 2 on 01/19/2017 by Harrison Wise MD at [facility] 08/09/2027 [id number] / Screw, Medtronic # Set Break Off Ti SCREW N/A: Spine Medtronic #[id number] - S00 Implanted: Qty: 3 on 08/08/2017 by Harrison Wise MD at [facility] Description: No charge for any implant per Cordell [employer] Rep 11/09/2025 [id number] / 000 / [id number] Screw Solera 4.75 Ti Ns Break Off Left: Spine Med tronic Medtronic #[id number] - S000 Implanted: Qty: 4 on 11/10/2015 by Harrison Wise MD at [facility] 11/09/2025 [id number] / 0000 / [id number] Yareli 4.75 Ccm Ns Curved 45mm Solera Left: Spine Me dtronic Medtronic #[id number] - [id number] Implanted: Qty: 2 on 11/10/2015 by Harrison Wise MD at [facility] 01/19/2027 [id number] / 0 / [id number] Screw Solera 4.75 Ti Ns Break Off N/A: Back Med tronic Medtronic #[id number] - S0 Implanted: Qty: 6 on 01/19/2017 by Harrison Wise MD at [facility] 01/19/2027 [id number] / 0 / [id number] Screw Solera 7.5x45mm Medtronic N/A: Back Medtr onic #[id number] - S0 Implanted: Qty: 2 on 01/19/2017 by Harrison Wise MD at [facility] documented as of this encounter Results Not on filedocumented in this encounter Insurance Type Payer Benefit Subscriber ID Effective Phone Address Plan / Dates Group Medicaid [facility] xxxxxxxxx 2015-P P O MARGI OF [facility] [address] [place] [address] documented as of this encounter Advance Directives Relationship Healthcare Agent Relationship Communicat ion Name Significant Other Primary healthcare agent [phone] (Home) [email or web address] Luanne Carson Child First alternate healthcare agent Rico Christie
--- OUTSIDE RECORDS SUMMARY | 2019-11-04 15:50 | XMS REPORT | Clinical Summary ---
Author Author [facility] - Health Organization [facility] - Health Address Unknown Phone Unavailable Care Team Providers Care In Service Educator Name Role Phone Gabriella Coyle MD 12 Unavailable Pcp, Patient Does Not Have A PCP [phone] Allergies Comments Active Allergy Reactions Severity Noted [...] times daily. Active fluticasone 50 Use 1 [place] 16 g 0 mcg/actuation nasal in [...] Added automatically from request for gerber wendy [id number] Wound dehiscence 08/23/2017 Hardware complicating wound infection 08/18/2017 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 09/21/2016 Overview: Added automatically from request for buzz nguyen [id number] Chronic diastolic congestive heart failure 7 Narcotic abuse 03/14/2016 Overview: No further narcotic prescriptions from [facility] Family Medicine. Pt informed 03/13/16.- [...] Encounters Care Team Description Date Type Specialty Adrian Armas FNP Shortness of breath (Primary Dx) 11/12/2018 Emergency Emergency Medicine Golden Rivera RN HEALTH MAINTENANCE (High ED Utilization) 11/01/2018 Telephone [facility] Preventive Medicine Michela Caldwell RN ED F/U 10/18/2018 Patient Case Management Outreach Dee Larios MD Fall, initial encounter (Primary Dx); Cervicalgia; Dorsalgia; Drug-seeking behavior; History of colon cancer; History of cervical fracture; History of [place] (myocardial infarction); Atherosclerosis of [place] coronary artery of [place] heart without angina pectoris; History of transient ischemic attack (TIA); Drug therapy 10/17/2018 Emergency Emergency Medicine Jericho Mejia MD Refill Request (Celecoxib 100 MG cap gre e) 09/11/2018 Refill Internal Medicine Guadalupe Cody MD Chronic migraine (Primary Dx); Chronic low back pain, unspecified back pain laterality, with sciatica presence unspecified; Lumbosacral radiculopathy; Rebound headache 08/29/2018 Office Visit Neurology from Last 3 Months Immunizations Name Administration [...] (200 lb) 11/12/2018 6:24 PM CDT Weight 170.2 cm (5' 7") 10/28/2018 10:40 AM CDT Height 31.32 10/28/2018 10:40 AM CDT Body Mass Index Plan of Treatment Care Team Description Date Type Specialty Screening/Bon [facility] Audio 12/03/2018 Ancillary Visit Audiology Health Maintenance [...] Implanted Type Area Manufactur er 04/26/2017 / [id number] / [id number] Dbm Putty Maxxeus 10cc Cts #2018-40 BONE Left: Spin e [facility] - [id number] Tissue Implanted: Qty: 1 on 11/10/2015 by Services Harrison Wise MD at [facility] 07/07/2020 1234-12 / [id number] / [id number] Cancellous Crushed, Community BONE Left: Spine [facility] Tissue Services (1 10mm) Freeze Tissue Dried 60.0 Cc #1234-12 - [id number] Services Implanted: Qty: 1 on 11/10/2015 by Harrison Wise MD at [facility] 10/16/2021 1235-12 / [id number] / [id number] Cancellous Crushed, Community BONE N/A: Back [facility] Tissue Services (1 10mm) Freeze Tissue Dried 90.0 Cc #1235-12 - Services [id number] Implanted: Qty: 1 on 01/19/2017 by Harrison Wise MD at [facility] 09/22/20182017-40 / [id number] / [id number] Dbm Putty Maxxeus 10cc Cts #2018-40 BONE N/A: [facility] - [id number] Tissue Implanted: Qty: 1 on 01/19/2017 by Services Harrison Wise MD at [facility] 07/23/2018259052 / 00 / 00 Duraseal, Covidien Improved Dural Duraseal N/A: Spine Tyco/Covid Sealant System 5ml #[id number] - S00 ien Implanted: Qty: 1 on 08/08/2017 by Harrison Wise MD at [facility] 01/19/2027 [id number] / 0 / [id number] Yareli 4.75 Ccm Ns Curved 70mm Solara YARELI N/A: Back Medtronic Medtronic #[id number] - S0 Implanted: Qty: 2 on 01/19/2017 by Harrison Wise MD at [facility] 11/09/2025 [id number] / 0000 / [id number] Screw Solera 6.5x30mm Medtronic SCREW Left: Spine Medtronic #[id number] - S0000 Implanted: Qty: 2 on 11/10/2015 by Harrison Wise MD at [facility] 11/09/2025 [id number] / 0000 / [id number] Screw, Medtronic Solara 6.5x45 SCREW Left: Spine Medtronic #[id number] - S0000 Implanted: Qty: 2 on 11/10/2015 by Harrison Wise MD at [facility] 01/19/2027 [id number] / 0 / [id number] Screw Solera 8.5x30mm Mas Medtronic SCREW N/A: Back Medtronic #[id number] Implanted: Qty: 2 on 01/19/2017 by Harrison Wise MD at [facility] 01/19/2027 [id number] / 0 / [id number] Screw, Medtronic Solara 6.5x45 SCREW N/A: Back Medtronic #[id number] - S0 Implanted: Qty: 2 on 01/19/2017 by Harrison Wise MD at [facility] 08/09/2027 [id number] / 00 / 00 Screw, Medtronic # Set Break Off Ti SCREW N/A: Spine Medtronic #[id number] - S00 Implanted: Qty: 3 on 08/08/2017 by Harrison Wise MD at [facility] Description: No charge for any implant per Cordell Bellteonic Rep 11/09/2025 [id number] / 000 / [id number] Screw Solera 4.75 Ti Ns Break Off Left: Spine Med tronic Medtronic #[id number] - S000 Implanted: Qty: 4 on 11/10/2015 by Harrison Wise MD at [facility] 11/09/2025 [id number] / 0000 / [id number] Yareli 4.75 Ccm Ns Curved 45mm Solera Left: Spine Me dtronic Medtronic #[id number] - [id number] Implanted: Qty: 2 on 11/10/2015 by Harrison Wise MD at [facility] 01/19/2027 [id number] / 0 / [id number] Screw Solera 4.75 Ti Ns Break Off N/A: Back Med tronic Medtronic #[id number] - S0 Implanted: Qty: 6 on 01/19/2017 by Harrison Wise MD at [facility] 01/19/2027 [id number] / 0 / [id number] Screw Solera 7.5x45mm Medtronic N/A: Back Medtr onic #[id number] - S0 Implanted: Qty: 2 on 01/19/2017 by Harrison Wise MD at [facility] Procedures Comments Procedure Name Priority Date/Time Associated Diag nosis CBC WITH DIFFERENTIAL STAT 11/12/2018 Shortnes s of breath 6:41 PM CDT TROPONIN I STAT 11/12/2018 Shortness of br eath 6:41 PM CDT BASIC METABOLIC PANEL STAT 11/12/2018 Shortnes s of breath (NA, K, CL, CO2, GLUCOSE, 6:41 PM CDT BUN, CREATININE, CA) CBC WITH DIFF Routine 11/12/2018 Shortness of br eath 6:41 PM CDT EMERGENCY SERVICES Routine 11/12/2018 AGREEMENTS AND 12:01 AM CDT AUTHORIZATIONS PATIENT LEAVING AGAINST Routine 11/12/2018 MEDICAL ADVICE 12:[address] HEAD WO CONTRAST STAT 10/17/2018 Fall, [...] AUTHORIZATIONS from Last 3 Months Results * CBC WITH DIFFERENTIAL (11/12/2018 6:41 PM CDT) WBC 7.15 4.20 - 10.70 [facility] 10*3/L SERVICES RBC 4.51 4.26 - 5.52 10*6/L [facility] HGB 12.3 12.2 - 16.4 g/dL [facility] HCT 38.3 (L) 38.4 - 49.3 % [facility] MCV 84.9 81.7 - 95.6 fL [facility] MCH 27.3 26.1 - 32.7 pg [facility] MCHC 32.1 31.2 - 35.0 g/dL [facility] RDW-SD 45.9 38.5 - [...] Ph one Number [facility] CLIA: [id number], [address] [place] [address] [facility] * Basic Metabolic Panel (NA, K, CL, CO2, GLUCOSE, BUN, CREATININE, CA) (11/12/2018 6:41 PM CDT) NA 142 135 - 145 mmol/L [facility] K 3.9 3.5 - 5.0 mmol/L [facility] CL 109 (H) 98 - 108 mmol/L [facility] CO2 TOTAL 26 23 - 31 mmol/L [facility] AGAP 7 2 - 16 [facility] BUN 12 7 - 23 mg/dL [facility] GLUCOSE 121 (H) 70 - 110 mg/dL [facility] CREATININE 0.84 0.60 - 1.25 mg/dL [facility] CALCIUM 9.5 8.6 - 10.6 mg/dL [facility] eGFR 94.2 mL/min/1.73m2 [facility] Calculation SERVICES (Non-) eGFR 114.2 mL/min/1.73m2 [facility] Calculation SERVICES () Specimen Blood - VENOUS Narrative Performed At Association of Glomerular Filtration Rate (GFR) and S taging of Kidney Disease* [facility] + + +------ + SERVICES [...] Performing Organization Address City/State/Zipcode Ph one Number [facility] CLIA: [id number], [address] [place] [address] [facility] * Troponin I (11/12/2018 6:41 PM CDT) TROPONIN I 0.001 <=0.034 ng/mL [facility] Specimen Blood - VENOUS Narrative Performed At Equal or Less than 0.034 ng/ml---Normal [facility] Note: Cardiac troponin begins to [...] Performing Organization Address City/State/Zipcode Ph one Number [facility] CLIA: [id number], [address] [place] [address] [facility] * PATIENT LEAVING AGAINST MEDICAL ADVICE (11/12/2018 12:01 AM CDT) Specimen Performing Organization Address City/State/Zipcode Ph one Number HIM * EMERGENCY SERVICES AGREEMENTS AND AUTHORIZATIONS (11/12/2018 12:01 AM CDT) Only the most recent of 2 results within the time period is included. Specimen Performing Organization Address [facility] Ph one Number [facility] * CT THORACIC SPINE WO CONTRAST (10/17/2018 [...] uncinate spurs. These f indings are of zgho-bv-mslegliq severity, for example at C4-C5. CT THORACIC [...] No acute fracture or subluxation is identified. Ecrf-bx-ipquebgt facet arth ropathy seen in the nonfused [...] and uncinate spurs. These findings are of tbqx-bq-zadakszu severity, for example at C4-C5. CT THORACIC [...] No acute fracture or subluxation is identified. Qugw-tq-vlprumed facet arthropathy seen in the nonfused lumbar [...] uncinate spurs. These f indings are of mfjn-qa-pyotpofq severity, for example at C4-C5. CT THORACIC [...] No acute fracture or subluxation is identified. Oedl-tl-fynnhhdc facet arth ropathy seen in the nonfused [...] and uncinate spurs. These findings are of uiym-hc-nhyjxucy severity, for example at C4-C5. CT THORACIC [...] No acute fracture or subluxation is identified. Grfi-eh-uuuueuya facet arthropathy seen in the nonfused lumbar [...] uncinate spurs. These f indings are of wjms-dk-jbqhjjto severity, for example at C4-C5. CT THORACIC [...] No acute fracture or subluxation is identified. Bqxn-ke-mzxtrcav facet arth ropathy seen in the nonfused [...] and uncinate spurs. These findings are of ayoh-nd-gtqbsubm severity, for example at C4-C5. CT THORACIC [...] No acute fracture or subluxation is identified. Sqpq-ld-mfhfstra facet arthropathy seen in the nonfused lumbar [...] uncinate spurs. These f indings are of zgvn-ez-hnzrlhtv severity, for example at C4-C5. CT THORACIC [...] No acute fracture or subluxation is identified. Axsb-kl-utfpraft facet arth ropathy seen in the nonfused [...] and uncinate spurs. These findings are of gsvu-zu-icisxzjt severity, for example at C4-C5. CT THORACIC [...] No acute fracture or subluxation is identified. Ljyy-bb-uqcablsh facet arthropathy seen in the nonfused lumbar spine. No high-grade spinal canal stenosis is appreciated. IMPRESSION No acute intracranial abnormality. No acute fracture or traumatic malalignment of the cervical, thoracic, or lumbar spine. IDmitry MD., have reviewed this study and agree with the above report. Performing Organization Address City/State/Zipcode Ph one Number PACS/VR/DOSE * EMERGENCY DEPARTMENT DOCUMENTS (10/17/2018 12:01 AM CDT) Specimen Performing Organization Address City/State/Zipcode Ph one Number HIM from Last 3 Months Insurance Type Payer Benefit Subscriber ID Effective Phone Address Plan / Dates Group Medicaid [employer] [place] [employer] xxxxxxxxx 2015-P P O MARGI X OF [facility] [address] [place] [address] (Home) [place] [address] Advance Directives Relationship Healthcare Agent Relationship Communicat ion Name Significant Other Primary healthcare agent [phone] (Home) [email or web address] Luanne Carson Child First alternate healthcare agent Rico Christie
--- OUTSIDE RECORDS SUMMARY | 2019-11-04 15:50 | XMS REPORT | Clinical Summary ---
Author Author [facility] - Health Organization [facility] - Health Address Unknown Phone Unavailable Care Team Providers Care Driver Helper Name Role Phone Gabriella Coyle MD 12 Unavailable Pcp, Patient Does Not Have A PCP [phone] Allergies Comments Active Allergy Reactions Severity Noted [...] times daily. Active fluticasone 50 Use 1 [place] 16 g 0 mcg/actuation nasal in each [...] Added automatically from request for gerber wendy [id number] Wound dehiscence 08/23/2017 Hardware complicating wound infection 08/18/2017 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 09/21/2016 Overview: Added automatically from request for buzz nguyen [id number] Chronic diastolic congestive heart failure 7 Narcotic abuse 03/14/2016 Overview: No further narcotic prescriptions from [facility] Family Medicine. Pt informed 03/13/16.- Angelica [...] HEALTH MAINTENANCE (High ED Utilization) 11/01/2018 [facility]phone [facility] Preventive Medicine Michela Caldwell RN ED F/U 10/18/2018 Patient Case Management Outreach Dee Larios MD Fall, initial encounter (Primary Dx); Cervicalgia; Dorsalgia; Drug-seeking behavior; History of colon cancer; History of cervical fracture; History of PR (myocardial infarction); Atherosclerosis of [place] coronary artery of [place] heart without angina pectoris; History of transient [...] Description Date Type Specialty Screening/[facility] Audio 12/03/2018 Ancillary Visit Audiology Health [...] Implanted Type Area Manufactur er 04/26/2017 / [id number] / [id number] Dbm Putty Maxxeus 10cc Cts #2018-40 BONE Left: Spin e [facility] - [id number] Tissue Implanted: Qty: 1 on 11/10/2015 by Services Harrison Wise MD at [facility] 07/07/2020 1234-12 / [id number] / [id number] Cancellous Crushed, Community BONE Left: Spine [facility] Tissue Services (1 10mm) Freeze Tissue Dried 60.0 Cc #1234-12 - [id number] Services Implanted: Qty: 1 on 11/10/2015 by Harrison Wise MD at [facility] 10/16/2021 1235-12 / [id number] / [id number] Cancellous Crushed, Community BONE N/A: Back [facility] Tissue Services (1 10mm) Freeze Tissue Dried 90.0 Cc #1235-12 - Services [id number] Implanted: Qty: 1 on 01/19/2017 by Harrison Wise MD at [facility] 09/22/20182017-40 / [id number] / [id number] Dbm Putty Maxxeus 10cc Cts #2018-40 BONE N/A: [facility] - [id number] Tissue Implanted: Qty: 1 on 01/19/2017 by Services Harrison Wise MD at [facility] 07/23/2018582798 / 00 / 00 Duraseal, Covidien Improved Dural Duraseal N/A: Spine Tyco/Covid Sealant System 5ml #[id number] - S00 ien Implanted: Qty: 1 on 08/08/2017 by Harrison Wise MD at [facility] 01/19/2027 [id number] / 0 / [id number] Yareli 4.75 Ccm Ns Curved 70mm Solara YARELI N/A: Back Medtronic Medtronic #[id number] - S0 Implanted: Qty: 2 on 01/19/2017 by Harrison Wise MD at [facility] 11/09/2025 [id number] / 0000 / [id number] Screw Solera 6.5x30mm Medtronic SCREW Left: Spine Medtronic #[id number] - [id number] Implanted: Qty: 2 on 11/10/2015 by Harrison Wise MD at [facility] 11/09/2025 [id number] / 0000 / [id number] Screw, Medtronic Solara 6.5x45 SCREW Left: Spine Medtronic #[id number] - [id number] Implanted: Qty: 2 on 11/10/2015 by Harrison Wise MD at [facility] 01/19/2027 [id number] / 0 / [id number] Screw Solera 8.5x30mm Mas Medtronic SCREW N/A: Back Medtronic #[id number] Implanted: Qty: 2 on 01/19/2017 by Harrison Wise MD at [facility] 01/19/2027 [id number] / 0 / [id number] Screw, Medtronic Solara 6.5x45 SCREW N/A: Back Medtronic #[id number] - S0 Implanted: Qty: 2 on 01/19/2017 by Harrison Wise MD at [facility] 08/09/2027 [id number] / 00 / 00 Screw, Medtronic # Set Break Off Ti SCREW N/A: Spine Medtronic #[id number] - S00 Implanted: Qty: 3 on 08/08/2017 by Harrison Wise MD at [facility] Description: No charge for any implant per Cordell Bellte[employer] Rep 11/09/2025 [id number] / 000 / [id number] Screw Solera 4.75 Ti Ns Break Off Left: Spine Med tronic Medtronic #[id number] - S000 Implanted: Qty: 4 on 11/10/2015 by Harrison Wise MD at [facility] 11/09/2025 [id number] / 0000 / [id number] Yareli 4.75 Ccm Ns Curved 45mm Solera Left: Spine Me dtronic Medtronic #[id number] - S0000 Implanted: Qty: 2 on 11/10/2015 by Harrison Wise MD at [facility] 01/19/2027 [id number] / 0 / [id number] Screw Solera 4.75 Ti Ns Break Off N/A: Back Med tronic Medtronic #[id number] - S0 Implanted: Qty: 6 on 01/19/2017 by Harrison Wise MD at [facility] 01/19/2027 [id number] / 0 / [id number] Screw Solera 7.5x45mm Medtronic N/A: Back Medtr onic #[id number] - S0 Implanted: Qty: 2 on 01/19/2017 by Harrison Wise MD at [facility] Procedures Comments Procedure Name Priority Date/Time [...] Ph one Number [facility] CLIA: [id number], [address] [place] [address] [facility] * Basic Metabolic Panel (NA, K, CL, CO2, GLUCOSE, BUN, CREATININE, CA) (11/12/2018 6:41 PM CDT) NA 142 135 - 145 mmol/L [facility] K 3.9 3.5 - 5.0 mmol/L [facility] CL 109 (H) 98 - 108 mmol/L [facility] CO2 TOTAL 26 23 - 31 mmol/L [facility] AGAP 7 2 - 16 [facility] BUN 12 7 - 23 mg/dL [facility] GLUCOSE 121 (H) 70 - 110 mg/dL [facility] CREATININE 0.84 0.60 - 1.25 mg/dL [facility] CALCIUM 9.5 8.6 - 10.6 mg/dL [facility] eGFR 94.2 mL/min/1.73m2 [facility] Calculation SERVICES (Non-) eGFR 114.2 mL/min/1.73m2 [facility] Calculation SERVICES () Specimen Blood - VENOUS Narrative Performed At Association of Glomerular Filtration Rate (GFR) and S taging of Kidney Disease* [facility] + + +------ + SERVICES [...] Performing Organization Address City/State/Zipcode Ph one Number [facility] CLIA: [id number], [address] [place] [address] [facility] * Troponin I (11/12/2018 6:41 PM CDT) TROPONIN I 0.001 <=0.034 ng/mL [facility] Specimen Blood - VENOUS Narrative Performed At Equal or Less than 0.034 ng/ml---Normal [facility] Note: Cardiac troponin begins [...] Performing Organization Address City/State/Zipcode Ph one Number [facility] CLIA: [id number], [address] [place] [address] [facility] * PATIENT LEAVING AGAINST MEDICAL ADVICE (11/12/2018 12:01 AM CDT) Specimen Performing Organization Address City/State/Zipcode Ph one Number [facility] * EMERGENCY SERVICES AGREEMENTS AND AUTHORIZATIONS (11/12/2018 12:01 AM CDT) Only the most recent of 2 results within the time period is included. Specimen Performing Organization Address [facility] Ph one Number [facility] * CT THORACIC [...] uncinate spurs. These f indings are of zfco-lk-ttrklors severity, for example at C4-C5. CT THORACIC [...] No acute fracture or subluxation is identified. Aiyu-hf-bqmxvynu facet arth ropathy seen in the nonfused [...] and uncinate spurs. These findings are of plzw-cr-egedzqmn severity, for example at C4-C5. CT THORACIC [...] No acute fracture or subluxation is identified. Hwsu-uu-jeqdzigr facet arthropathy seen in the nonfused lumbar [...] uncinate spurs. These f indings are of vhxo-hp-ifosmenp severity, for example at C4-C5. CT THORACIC [...] No acute fracture or subluxation is identified. Hddx-dh-vwyfhsgn facet arth ropathy seen in the nonfused [...] and uncinate spurs. These findings are of kryt-oe-qljgdgvb severity, for example at C4-C5. CT THORACIC [...] No acute fracture or subluxation is identified. Dgch-cj-cioxyxzt facet arthropathy seen in the nonfused lumbar [...] uncinate spurs. These f indings are of cybv-vj-jfyfotbw severity, for example at C4-C5. CT THORACIC [...] No acute fracture or subluxation is identified. Ygrc-fw-djssigal facet arth ropathy seen in the nonfused [...] and uncinate spurs. These findings are of pybc-wc-lcbxrqth severity, for example at C4-C5. CT THORACIC [...] No acute fracture or subluxation is identified. Oxwu-ev-tojxfjtc facet arthropathy seen in the nonfused lumbar [...] uncinate spurs. These f indings are of fpgm-rl-obwxhqxu severity, for example at C4-C5. CT THORACIC [...] No acute fracture or subluxation is identified. Nojm-tk-rjxjqyky facet arth ropathy seen in the nonfused [...] and uncinate spurs. These findings are of mvbv-xv-bfpapoff severity, for example at C4-C5. CT THORACIC [...] No acute fracture or subluxation is identified. Vcdk-wo-bzqkbfws facet arthropathy seen in the nonfused lumbar [...] / Dates Group Medicaid [employer] xxxxxxxxx 2015-P P O MARGI X OF [facility] [address] [place] [address] (Home) [place] [address] Advance Directives Relationship Healthcare Agent Relationship Communicat ion Name Significant Other Primary healthcare agent [phone] (Home) [email or web address] Luanne Carson Child First alternate healthcare agent Rico Christie
--- OUTSIDE RECORDS SUMMARY | 2019-11-04 15:50 | XMS REPORT | Summary of Care ---
Author Author [facility] - Health Organization [facility] - Health Address Unknown Phone Unavailable Care Team Providers Care Track Grinder Operator Name Role Phone Gabriella Coyle MD 12 Unavailable Pcp, Patient Does Not Have A PCP [phone] Encounter Details Care Team Description Date Type Department Doctor Unassigned, [place] [address] [place] [address] 12/04/2018 Orders Only [facility] [address] [place] [address] Allergies Comments Active Allergy Reactions Severity Noted Date Penicillins Rash 11/09/2015 documented as of this encounter (statuses as of 12/04/2018) Medications End Date Status Medication Sig Dispensed [...] times daily. Active fluticasone 50 Use 1 [place] 16 g 0 mcg/actuation nasal in each [...] mg Take 1 tablet 30 tablet 0 tabletIndications: Fall, by mouth 9 initial encounter [...] as of this encounter (statuses as of 12/04/2018) Active Problems Problem Noted Date Infection 09/28/2017 Chronic midline low back pain without sciatica 09/27 Overview: Added automatically from request for buzz nguyen [id number] Wound dehiscence 08/23/2017 Hardware complicating wound infection 08/18/2017 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 09/21/2016 Overview: Added automatically from request for buzz nguyen [id number] Chronic diastolic congestive heart failure 7 Narcotic abuse 03/14/2016 Overview: No further narcotic prescriptions from [facility]. Pt informed 03/13/16.- Angelica Valero [...] as of this encounter (statuses as of 12/04/2018) Resolved Problems Problem Noted Date Resolved Date [...] as of this encounter (statuses as of 12/04/2018) Immunizations Name Administration Dates Next Due DTAP [...] filedocumented in this encounter Plan of Treatment Health Maintenance Due Date [...] Implanted Type Area Manufactur er 04/26/20172017-40 / [id number] / [id number] Dbm Putty Maxxeus 10cc Cts # BONE Left: Spin e [facility] - [id number] Tissue Implanted: Qty: 1 on 11/10/2015 by Services Harrison Wise MD at [facility] 07/07/2020 1234-12 / [id number] / [id number] Cancellous Crushed, Community BONE Left: Spine [facility] Tissue Services (1 10mm) Freeze Tissue Dried 60.0 Cc #1234-12 - S0000 Services Implanted: Qty: 1 on 11/10/2015 by Harrison Wise MD at [facility] 10/16/2021 1235-12 / [id number] / [id number] Cancellous Crushed, [facility] BONE N/A: Back [facility] Tissue Services (1 10mm) Freeze Tissue Dried 90.0 Cc #1235-12 - Services [id number] Implanted: Qty: 1 on 01/19/2017 by Harrison Wise MD at [facility] 09/22/2018 / [id number] / [id number] Dbm Putty Maxxeus 10cc Cts # BONE N/A: Back [facility] - [id number] Tissue Implanted: Qty: 1 on 01/19/2017 by Services Harrison Wise MD at [facility] 07/23/2018219913 Duraseal, Covidien Improved Dural Duraseal N/A: Spine Tyco/Covid Sealant System 5ml #[id number] - S00 ien Implanted: Qty: 1 on 08/08/2017 by Harrison Wise MD at [facility] 01/19/2027 [id number] / 0 / [id number] Yareli 4.75 Ccm Ns Curved 70mm Solara YARELI N/A: Back Medtronic Medtronic #[id number] - S0 Implanted: Qty: 2 on 01/19/2017 by Harrison Wise MD at [facility] 11/09/2025 [id number] / 0000 / [id number] Screw Solera 6.5x30mm Medtronic SCREW Left: Spine Medtronic #[id number] - S0000 Implanted: Qty: 2 on 11/10/2015 by Harrison Wise MD at [facility] 11/09/2025 [id number] / 0000 / [id number] Screw, Medtronic Solara 6.5x45 SCREW Left: Spine Medtronic #[id number] - S0000 Implanted: Qty: 2 on 11/10/2015 by Harrison Wise MD at [facility] 01/19/2027 [id number] / 0 / [id number] Screw Solera 8.5x30mm Mas Medtronic SCREW N/A: Back Medtronic #[id number] Implanted: Qty: 2 on 01/19/2017 by Harrison Wise MD at [facility] 01/19/2027 [id number] / 0 / [id number] Screw, Medtronic Solara 6.5x45 SCREW N/A: Back Medtronic #[id number] - S0 Implanted: Qty: 2 on 01/19/2017 by Harrison Wise MD at [facility] 08/09/2027 [id number] / 00 / 00 Screw, Medtronic # Set Break Off Ti SCREW N/A: Spine Medtronic #[id number] - S00 Implanted: Qty: 3 on 08/08/2017 by Harrison Wise MD at [facility] Description: No charge for any implant per Hortensia Bell 11/09/2025 [id number] / 000 / [id number] Screw Solera 4.75 Ti Ns Break Off Left: Spine Med tronic Medtronic #[id number] - S000 Implanted: Qty: 4 on 11/10/2015 by Harrison Wise MD at [facility] 11/09/2025 [id number] / 0000 / [id number] Yareli 4.75 Ccm Ns Curved 45mm Solera Left: Spine Me dtronic Medtronic #[id number] - [id number] Implanted: Qty: 2 on 11/10/2015 by Harrison Wise MD at [facility] 01/19/2027 [id number] / 0 / [id number] Screw Solera 4.75 Ti Ns Break Off N/A: Back Med tronic Medtronic #[id number] - S0 Implanted: Qty: 6 on 01/19/2017 by Harrison Wise MD at [facility] 01/19/2027 [id number] / 0 / [id number] Screw Solera 7.5x45mm Medtronic N/A: Back Medtr onic #[id number] - S0 Implanted: Qty: 2 on 01/19/2017 by Harrison Wise MD at [facility] documented as of this encounter Procedures Comments Procedure Name Priority Date/Time Associated Diag nosis NO SHOW OR MISSED Routine 12/04/2018 APPOINTMENT POLICY 8:06 AM CDT ACKNOWLEDGEMENT documented in this encounter Results Not on filedocumented in this encounter Insurance Type Payer Benefit Subscriber ID Effective Phone Address Plan / Dates Group Medicaid [facility]-P [address] [address] documented as of this encounter Advance Directives Relationship Healthcare Agent Relationship Communicat ion Name Significant Other Primary healthcare agent [phone] (Home) [email or web address] Luanne Carson Child First alternate healthcare agent Rico Christie
--- OUTSIDE RECORDS SUMMARY | 2019-11-04 15:51 | XMS REPORT | Continuity of Care Document ---
Author Author [facility] t Organization [facility] Address [facility] [place] [address] [place] [id number] Phone Unavailable Care Team Providers Care Manager Credit Name Role Phone NO, PCP PCP Unavailable David NUÑEZ Attphys Unavailable Eduar GUZMAN, Radames Montanez Attphys Maggie Araya Attphys Unavailable Amparo GUZMAN, Chanel Anthony Attphys Javier GUZMAN, Chela Lugo Attphys Lorrie GUZMAN, Zayda Noyola Attphys Manan GUZMAN, Tab Adorno Attphys [phone] ZAYDA OTT Attphys Unavailable Suzanne GUZMAN, Hemant Negron Attphys [phone] HEMANT NICE Attphys Unavailable EstevanAlanis Attphys ESTEVAN ALANIS ISADORA Attphys Unavailable Belia GUZMAN, Mojgan Restrepo Attphys Jeane GUZMAN, Justen Ludwig Attphys [phone] Bradly GUZMAN, [place] Attphys Richy GUZMAN, Saul Lucio Attphys Yany GUZMAN, Nino Bush Attphys Tay GUZMAN, K Wilder Attphys Anna Marie GUZMAN, Jennifer Attphys Araceli GUZMAN, Cuate Arteaga Attphys Johnny GUZMAN, L Omegie Attphys CUATE CHARLES Attphys Unavailable Kat GUZMAN, Bin Nadim Attphys Jorge GUZMAN, Price Monroe Attphys Dante OUTSIDE PRODUCTION INSPECTOR, G Rediate Attphys Areli GUZMAN, Reuben Attphys [phone] Bert Rivera MD Attphys Gabriel GUZMAN, Deepak Mathias Attphys [phone] Prasanna GUZMAN, Franny Santos Attphys BERT RIVERA Attphys Unavailable David HUMPHREYS Attphys Unavailable DONALD CASTRO Attphys Unavailable RAUHJOSEFINA HENRY Attphys Unavailable SARI CHRISTENSEN Admphys Unavailable RAUHUT, JOSEFINA ARAGON Admphys Unavailable Payers Payer Name Policy Type Policy Number Effective Date Expiration Date Kimmy feliciano AMERIGROUPAMERIGROUP STAR+PLUS [id number] xxxxxxxxx 2015 00:00:00 [facility] Oz[facility]ist MEDICAID - [place] [id number] xxMedicaid Non-Contracted xxxxxxxxx [facility] AMERIGROUP MEDICAID HMOAMERIGROUP SSIxxx [id number] [address] [address] [address] xxxxxxxxx 2015-06-25 00:0 0:00 [facility] [employer] Star [id number] 2017-12-24 00:00:00 [facility] Problems Condition Name Condition Details Condition Category Status Onset Date Resolution Date Last Treatment Date Treating Clinician Comments Source Chest pain Chest pain Disease Active 2019-09-26 00:00:00 [facility] Low back pain with sciatica Low back pain with sciatica Disease Active 2019-04-22 00:00:00 [facility] Narcotic dependence Narcotic dependence Disease Active 2019-04-22 00:00 :00 [facility] At risk for abuse of opiates At risk for abuse of opiates Disease Active 2019-04-22 00:00:00 [facility] Drug-seeking behavior Drug-seeking behavior Disease Active 00:00:00 [facility] Chronic bilateral low back pain with bilateral sciatic a Chronic bilateral low back pain with bilateral sciatica Disease Active 2019-03-14 00:00:00 [facility] Back pain with history of spinal surgery Back pain wit h history of spinal surgery Disease Active 2019-03-14 00:00:00 [facility] Polyarthralgia Polyarthralgia Disease Active 2019-03-14 00:00:00 [facility] Mixed hyperlipidemia Mixed hyperlipidemia Disease Active 00:00:00 [facility] Radiculomyelopathy Radiculomyelopathy Disease Active 2017-05-09 00:00:0 0 [facility] Bunn Iron deficiency anemia Iron deficiency anemia Disease Active 2017-05-09 00:00:[address] Hyperlipidemia Hyperlipidemia Disease Active 2017-05-09 00:00:00 [facility] Bunn Weakness of left lower extremity Weakness of left lower extremit y Disease Active 2017-05-08 00:00:00 Jian on Shinto Sciatica of left side Sciatica of left side Disease Active 201 10-26-11 00:00:00 [facility] Methodis t Sprain of hip Sprain of hip Problem Active 2017-02-13 00:00:00 [facility] (LUF/BHUPINDER/SA) Hip pain Hip pain Problem Active 2017-02-13 00:00:00 [facility] (LUF/BHUPINDER/SA) Dental caries Dental caries Problem Active 2016-05-03 00:00:00 [facility] (LUF/BHUPINDER/SA) Low back pain Low back pain Problem Active 2016-04-26 00:00:00 [facility] (LUF/BHUPINDER/SA) Backache Backache Problem Active [facility] (LUF/BHUPINDER/SA) Chronic pain Chronic pain Problem Active [facility] (LUF/BHUPINDER/SA) Allergies, Adverse Reactions, Alerts Allergy Name Allergy Type Status Severity Reaction(s) Onset Date Inacti ve Date Treating Clinician Comments Source Ketorolac Propensity to adverse reactions Active 2019-08-12 00:00:00 [facility] Ketorolac Propensity to adverse reactions to drug Active Other 2019-02-23 00:00:00 Burning and nausea [facility] Tramadol Propensity to adverse reactions Active 2019-02-10 00:00:00 [facility] Tramadol Propensity to adverse reactions to drug Active 2019-02-10 00:00:00 [facility] tramadol DA Active SV 2019-01-24 00:00:00 [facility] Penicillins Propensity to adverse reactions to drug Active Nausea and Vomiting 2018-09-02 00:00:00 [facility] Penicillins DA Active PR 2018-08-29 00:00:00 [facility] Penicillins Propensity to adverse reactions Active Nola rrhea 2018-06-06 00:00:00 [facility] Penicillins DA Active PR 2017-06-17 00:00:00 [facility] Penicillin Propensity to adverse reactions to drug Active GI Intolerance 2017-05-07 00:00:00 [place] [facility] Tramadol Propensity to adverse reactions to drug Active Palpitations 2016-08-26 00:00:00 [facility] odist Family History Family Member Diagnosis Comments Start Date Stop Date Source Natural brother Diabetes Kg M ethodist Natural father Heart disease [facility] B[facility] Natural mother Diabetes [facility] Me thodist Natural sister Diabetes [facility]od[facility] Social History Social Habit Start Date Stop Date Quantity Comments Source History SDOH Alcohol Std Drinks [facility] History SDOH Alcohol Binge [facility] Exposure to SARS-CoV-2 (event) Not sure Kg Ozunaist Sex Assigned At [facility] Health Alcohol intake 2019-05-04 00:00:00 2019-05-04 00:00:00 Ex-drinker (fi nding) [facility] Alcohol Comment 2019-04-07 00:00:00 2019-04-07 00:00:00 quit 8 years ago Kg Bunn History SDOH Food Worry 2018-09-02 00:00:00 2018-09-02 00:00:00 1 [facility] SDOH Food Scarcity 2018-09-02 00:00:00 2018-09-02 00:00:00 1 [facility] SDOH Alcohol Frequency 2018-06-06 00:00:00 2018-06-06 00:00:0 0 1 [facility] Smoking Status Start Date Stop Date Source Never smoker [facility] Medications Ordered Medication Name Filled Medication Name Start Date Stop Da te Current Medication? Ordering Clinician Indication Dosage Frequency Signature (SIG) Comments Components Source aspirin (ECOTRIN) 325 MG enteric coated tablet 2 00:00:00 2019-10-28 23:59:00 No 325mg QD Take 1 tablet (325 mg total) by mouth daily for 30 days. Kg Bunn diazePAM (VALIUM) 5 MG tablet 2019-09-27 00:00:00 2019-10-11 23: 59:00 No 5mg Q.5D Take 1 tablet (5 mg total) by mouth 2 (two) time s a day for 14 days. Kg Bunn hydrOXYzine (ATARAX) 25 MG tablet 2019-09-18 00:00:00 2019 23:59:00 No 25mg Take 1 tablet (25 mg total) by mouth every 6 (six) hours for 10 days. [facility] diazePAM (VALIUM) 5 MG tablet 2019-08-12 13:46:55 2019-08-12 00: 00:00 No 5mg Take 5 mg by mouth every 6 (six) hours as needed for A nxiety. [facility] acetaminophen-codeine (TYLENOL #3) 300-30 mg per tablet 2019-08-12 13:46:52 2019-08-12 00:00:00 No 1{tbl} Take 1 tablet by mouth every 4 (four) hours as needed for Pain. [facility] predniSONE (DELTASONE) 10 MG tablet 2019-08-12 00:00:00 Yes 40 mg x 3 d, 30 mgx3d, 65ihn9c, 93ssy9c. [facility] acetaminophen-codeine (TYLENOL #4) 300-60 mg per tablet 2019-08-12 00:00:00 2019-08-22 23:59:00 No 1{tbl} Take 1 tablet by mouth every 4 (four) hours as needed for Pain for up to 10 days. Max Daily Amount: 6 tablets [facility] acetaminophen-codeine (TYLENOL #4) 300-60 mg per tablet 2019-08-12 00:00:00 2019-08-12 00:00:00 No 1{tbl} Take 1 tablet by mouth every 4 (four) hours as needed for Pain for up to 10 days. Max Daily Amount: 6 tablets [facility] acetaminophen-codeine (TYLENOL #4) 300-60 mg per tablet 2019-05-04 00:00:00 2019-05-14 23:59:00 No 1{tbl} Take 1 tablet by mouth every 4 (four) hours as needed for up to 10 days. Max Daily Amount: 6 tablets [facility] tiZANidine (ZANAFLEX) 4 MG tablet 2019-05-04 00:00:00 2019 23:59:00 No 4mg Take 1 tablet (4 mg total) by mouth every 6 (six) hours as needed for up to 10 days. [facility] venlafaxine HCl (EFFEXOR OR) 2019-04-07 10:53:53 Yes Take by mouth. [facility] dicyclomine (BENTYL) 10 mg capsule 2019-04-03 00:00:00 Yes 10mg Take 10 mg by mouth. [facility] promethazine (PHENERGAN) 25 mg tablet 2019-04-03 00:00:00 Y es 25mg Take 25 mg by mouth. [facility] tamsulosin (FLOMAX) 0.4 mg extended release capsule 2018-03 00:00:00 Yes TK 1 C PO D Patrick hernandez venlafaxine (EFFEXOR XR) 150 mg extended release capsule 2019-03-22 00:00:00 Yes TK 1 C PO D WITH LAMIN [facility] gabapentin (NEURONTIN) 300 MG capsule 2019-03-17 15:20:11 Yes 300mg Q.[id number] Take 300 mg by mouth 3 (three) times daily. [facility] gabapentin (NEURONTIN) 300 mg capsule 2019-03-14 00:00:00 Yes Chronic bilateral low back pain with bilateral sciatica Take 1 capsule daily for 1 week. You may increase the dose to 1 capsule twice daily if needed.. [facility] acetaminophen-codeine (TYLENOL #3) 300-30 mg per tablet 2019-03-14 00:00:00 2019-04-14 23:59:00 No Chronic bilateral lo w back pain with bilateral sciatica 1{tbl} Take 1 tablet by moses th every 6 hours as needed for up to 31 days for Pain. [facility] gabapentin (NEURONTIN) 300 mg capsule 2019-03-14 00:00 :00 2019-03-14 00:00:00 No Chronic bilateral low back pain with bilateral sciatic a Take 1 capsule daily for 1 week. You may increase the dose to 1 capsule twice daily if needed.. [facility] predniSONE (DELTASONE) 10 MG tablet 2019-03-05 00:00:0 0 2019-03-17 00:00:00 No 40 mg x3d, 48iih1z, 43uwx4q, 90jot2b. [facility] acetaminophen-codeine (TYLENOL #3) 300-30 mg per tablet 2019-03-05 00:00:00 2019-03-15 23:59:00 No 1{tbl} Take 1 tablet by mouth every 6 (six) hours as needed for Pain for up to 10 days. Max Daily Amount: 4 tablets [facility] diazePAM (VALIUM) 2 MG tablet 2019-03-05 00:00:00 2019-03-15 23: 59:00 No 2mg Take 1 tablet (2 mg total) b y mouth every 12 (twelve) hours as needed for Anxiety for up to 10 days. Max Daily Amount: 4 mg [facility] venlafaxine (EFFEXOR-XR) 150 MG 24 hr capsule 2019-02-26 00:00:0 0 Yes 150mg Take 150 mg by mouth. [facility] ibuprofen (ADVIL,MOTRIN) 400 MG tablet 4 00:00:00 2019-03-08 23:59:00 No 400mg Take 1 tablet (400 mg total) by mouth every 6 (six) hours as needed for Pain for up to 10 days. [facility] acetaminophen-codeine (TYLENOL #3) 300-30 mg per tablet 2019-02-26 00:00:00 2019-03-05 00:00:00 No 1{tbl} Take 1 tablet by mouth every 6 (six) hours as needed for Pain for up to 10 days. Max Daily Amount: 4 tablets [facility] acetaminophen-codeine (TYLENOL WITH CODEINE #3) 300-30 mg pe r tablet 2019-02-23 00:00:00 2019-03-02 23:59:00 No acute pain 1{tbl} Q6H Take 1-2 tablets by mouth every 6 (six) hours as needed for moderate pain for up to 7 days .Acute Pain. Kg Bunn gabapentin (NEURONTIN) 300 mg capsule 2019-02-13 00:00 :00 2019-03-14 00:00:00 No Polyarthralgia Take 1 capsul e daily for 1 week. You may increase the dose to 1 capsule twice daily if needed.. [facility] acetaminophen-codeine (TYLENOL #3) 300-30 mg per tablet 2019-02-13 00:00:00 2019-03-14 00:00:00 No Polyarthralgia 1{tbl} T aliyah 1 tablet by mouth every 6 hours as needed for up to 31 days for Pain. [facility] gabapentin (NEURONTIN) 100 MG capsule 2019-02-10 00:00 :00 2019-03-12 23:59:00 No 100mg Q.[id number] Take 1 capsule (100 mg total) by mouth 3 (three) times daily for 30 days. [facility] acetaminophen-codeine (TYLENOL #3) 300-30 mg per tablet 2019-02-10 00:00:00 2019-02-20 23:59:00 No 1{tbl} Take 1-2 tablets by mouth every 6 (six) hours as needed for Pain for up to 10 days. Max Daily Amount: 8 tablets [facility] HYDROcodone-acetaminophen (NORCO) 10-325 mg tablet 2019-01-20 00:00:00 2019-02-13 00:00:00 No TK 1 T PO TID PRN P [facility] diazePAM (VALIUM) 5 mg tablet 2019-01-17 00:00:00 Yes TK 1 T PO BID [facility] gabapentin (NEURONTIN) 300 mg capsule 2019-01-13 00:00 :00 2019-02-13 00:00:00 No Fall, initial encounter Take 1 capsule daily for 1 week. You may increase the dose to 1 capsule twice daily if needed.. [facility] acetaminophen-codeine (TYLENOL #3) 300-30 mg per tablet 2019-01-13 00:00:00 2019-02-13 00:00:00 No Polyarthralgia 1{tbl} T aliyah 1 tablet by mouth every 6 hours as needed for up to 31 days for Pain. [facility] acetaminophen-codeine (TYLENOL #3) 300-30 mg per tablet 2019-01-05 00:00:00 2019-01-15 23:59:00 No 1{tbl} Take 1-2 tablets by mouth every 6 (six) hours as needed for Pain for up to 10 days. Max Daily Amount: 8 tablets [facility] cyclobenzaprine (FLEXERIL) 10 MG tablet 00:00:00 2019-01-05 00:00:00 No 10mg Take 1 tablet (10 mg total) by mouth 2 (two) times daily as needed for Muscle spasms for up to 10 days. [facility] ketorolac (TORADOL) injection 30 mg 2019-01-01 14:45:0 0 2019-01-01 14:38:00 No Fall, initial encounter 30mg [facility] tiZANidine (ZANAFLEX) 4 mg tablet 2019-01-01 00:00:00 Yes Fall, initial encounter 4mg Take 1 tablet by moses th every 6 hours as needed for Muscle Spasms (back pain) May cause DROWSINESS. [facility] gabapentin (NEURONTIN) 300 mg capsule 2019-01-01 00:00 :00 2019-01-13 00:00:00 No Fall, initial encounter Take 1 capsule daily for 1 week. You may increase the dose to 1 capsule twice daily if needed.. [facility] tiZANidine (ZANAFLEX) 4 mg tablet 2019-01-01 00:00:00 2018 00:00:00 No Fall, initial encounter 4mg Take 1 t ablet by mouth every 6 hours as needed for Muscle Spasms (back pain) May cause DROWSINESS. [facility] gabapentin (NEURONTIN) 300 mg capsule 2019-01-01 00:00 :00 2019-01-01 00:00:00 No Take 1 capsule daily for 1 week. You may increase the dose to 1 capsule twice daily if needed.. [facility] mary acetaminophen-codeine (TYLENOL WITH CODEINE #3) 300-30 mg pe r tablet 2018-12-30 00:00:00 2019-01-30 23:59:00 No acute pain 1{tbl} Q6H Take 1-2 tablets by mouth every 6 (six) hours as needed for moderate pain or severe pain for up to 12 doses .Acute Pain. Kg Bunn acetaminophen-codeine (TYLENOL #3) 300-30 mg per tablet 2018-12-30 00:00:00 2019-01-13 00:00:00 No 1{tbl} Take 1-2 tablets by mouth. [facility] tiZANidine (ZANAFLEX) 4 mg tablet 2018-12-23 00:00:00 2018 00:00:00 No TK 1 T PO BID PRN [facility] diazePAM (VALIUM) 5 mg tablet 2018-12-19 00:00:00 2019-01-13 00: 00:00 No TK 1 T PO BID [facility] XARELTO 20 mg tablet 2018-11-26 00:00:00 2019-01-01 00:00:00 No TAKE 1 TABLET BY MOUTH EVERY DAY IN THE EVENING. (START AFTER COMPLETING THE 15 MG TWICE A DAY) [facility] sulfamethoxazole-trimethoprim (BACTRIM DS) 800-160 mg per ta blet 2018-11-15 00:00:00 2018-11-25 23:59:00 No 2{tbl} Q.5D Take 2 tablets by mouth 2 (two) times a day for 10 days. smx-tmp DS (BACTRIM) 800-160 mg tabs (1tab q12 D10) Kg Bunn cephalexin (KEFLEX) 250 MG capsule 2018-11-15 00:00:00 201 12-02-01 23:59:00 No 500mg Q.[id number] Take 2 ca psules (500 mg total) by mouth 3 (three) times a day for 10 days. Kg Bunn acetaminophen-codeine (TYLENOL WITH CODEINE #3) 300-30 mg pe r tablet 2018-11-15 00:00:00 2018-11-17 23:59:00 No 1{tbl} Q6H Take 1-2 tablets by mouth every 6 (six) hours as needed for moderate pain for up to 2 days. [place] [facility] atorvastatin (LIPITOR) 20 mg tablet 2018-10-22 00:00:00 Yes Mixed hypercholesterolemia and hypertriglyceridemia 20mg Take 1 tablet by mouth at bedtime nightly. [facility] fenofibrate nanocrystallized (TRICOR) 48 mg tablet 2018-09 00:00:00 Yes Mixed hypercholesterolemia and hypertriglyceridemia 48mg QD Take 1 tablet by mouth daily. [facility] ergocalciferol (VITAMIN D2) 50,000 unit capsule 2018-10-22 0 0:00:00 Yes Vitamin D deficiency [id number] Take 1 capsule by mouth weekly. [facility] gabapentin (NEURONTIN) 300 mg capsule 2018-10-01 00:00 :00 2019-01-01 00:00:00 No Chronic midline back pain, unspecified back location Take 1 capsule daily for 1 week. You may increase the dose to 1 capsule twice daily if needed.. [facility] clindamycin (CLEOCIN) 300 mg capsule 2018-08-30 00:00: 00 2019-01-01 00:00:00 No [facility] celecoxib (CELEBREX) 100 mg capsule 2018-07-19 00:00:0 0 2019-01-01 00:00:00 No 100mg Take 100 mg by mouth. [facility] gabapentin (NEURONTIN) 100 mg capsule 2018-05-31 00:00:00 Yes 600mg Q.[id number] Take 600 mg by mouth 3 (three) times a day. [facility]g Bunn diazePAM (VALIUM) 5 MG tablet 2018-05-31 00:00:00 2019-09-27 00: 00:00 No 5mg Q.5D Take 5 mg by mouth 2 (two) times a day. [facility] B[facility] tiZANidine (ZANAFLEX) 4 MG tablet 2018-05-29 00:00:00 2019 00:00:00 No Kg antonio HYDROcodone-acetaminophen (NORCO) 10-325 mg per tablet 2018-05-24 00:00:00 Yes TAKE ONE (1) TABLET(S) BY MOUTH THREE TI MES A DAY. [facility] Bunn acetaminophen-codeine (TYLENOL WITH CODEINE #3) 300-30 mg pe r tablet 2018-05-20 00:00:00 2018-11-15 00:00:00 No Kg Bunn keTOROlac (TORadol) 10 mg tablet 2018-05-12 00:00:00 2019-09 00:00:00 No 10mg Take 10 mg by mouth. Malia Bunn sildenafil (VIAGRA) 50 MG tablet 2018-04-26 00:00:00 2019-09 00:00:00 No 50mg Take 50 mg by mouth. Malia Bunn traMADol (ULTRAM) 50 mg tablet 2017-04-30 00:00:00 2019-09-26 00 :00:00 No 50mg Q6H Take 50 mg by mouth every 6 (six) hours as neede d for pain. for pain Kg Bunn venlafaxine XR (EFFEXOR-XR) 75 MG 24 hr capsule 2017-04-19 00:00 :00 Yes 75mg QD Take 75 mg by mouth daily with breakfast. [facility]g Bunn diclofenac (VOLTAREN) 1 % gel 2017-02-07 00:00:00 Yes 1{application} Q.25D Apply 1 application topically 4 (four) times a day as needed for pain. [facility] Bunn Ibuprofen 600 MG Oral Tablet Ibuprofen 600 MG Oral Tablet Yes pain 600[facility]ID [facility] Acetaminophen 300 MG / Codeine Phosphate 30 MG Oral Ta blet Acetaminophen 300 MG / Codeine Phosphate 30 MG Oral Tablet No 1tab QID [facility] ([facility] Clindamycin 300 MG Oral Capsule Clindamycin 300 MG Oral Capsule No 300mg QID [facility] ([facility] gabapentin gabapentin No 400mg TID I [facility] ([facility]/) Immunizations Ordered Immunization Name Filled Immunization Name Date Status Comments Source Influenza <Unspecified> 2018-12-24 00:00:00 Completed [facility] Influenza <Unspecified> 2016-12-24 00:00:00 Completed [facility] DTap<INFANRIX> 2016-03-26 00:00:00 Completed [facility] DTP Diphtheria, Tetanus, Pertussis Vaccine 2016-03-26 00:0 0:00 Completed [facility] PCV 13 (Pnuemococcal Conjugated 13 Valent) 2016-03-26 00:0 0:00 [facility] Influenza, Injectable, Quadrivalent, Preservative Free 2015-10-25 00:00:00 [facility] PCV 13 (Pnuemococcal Conjugated 13 Valent) 2015-04-15 00:0 0:00 Completed [facility] influenza virus vaccine, NOS influenza virus vaccine, NOS Unknown Completed [facility] ([facility]/) INFLUENZA 2017 INFLUENZA 2017 Unknown Completed [facility] ([facility]) PNEUMOCOCCAL 2017 PNEUMOCOCCAL 2017 Unknown Completed [facility] ([facility]/) Vital Signs Vital Name Observation Time Observation Value Comments Source Systolic blood pressure 2019-11-03 22:26:00 173 mm[Hg] Kg Bunn Diastolic blood pressure 2019-11-03 22:26:00 93 mm[Hg] Kg Bunn Heart rate 2019-11-03 22:26:00 93 /min [facility] Respiratory rate 2019-11-03 22:26:00 17 /min Malia Bunn Oxygen saturation in Arterial blood by Pulse oximetry 11-02 22:26:00 97 /min [facility]g Bunn Body temperature 2019-11-03 19:42:00 37.06 Maame Malia Bunn Body height 2019-11-03 19:42:00 172.7 cm [facility]g Bunn Body weight 2019-11-03 19:42:00 104.327 kg Kg Bunn BMI 2019-11-03 19:42:00 34[facility]97 [facility] 2019-09-18 14:01:00 165 mm[Hg] [facility] Diastolic blood pressure 2019-09-18 14:01:00 74 mm[Hg] [facility] Heart rate 2019-09-18 14:01:00 92 /min [facility] Body temperature 2019-09-18 14:01:00 36.67 Maame [facility] Respiratory rate 2019-09-18 14:01:00 18 /min [facility] Oxygen saturation in Arterial blood by Pulse oximetry 09-17 14:01:00 97 /[facility] 2019-09-18 13:16:00 172.7 cm [facility] Body weight Measured 2019-09-18 13:16:00 97.523 kg [facility] BMI 2019-09-18 13:16:00 32.69 kg/m2 [facility] Systolic blood pressure 2019-05-04 13:05:00 151 mm[Hg] [facility] Diastolic blood pressure 2019-05-04 13:05:00 89 mm[Hg] [facility] Heart rate 2019-05-04 13:05:00 79 /min [facility] Body temperature 2019-05-04 13:05:00 36.61 Maame [facility] Respiratory rate 2019-05-04 13:05:00 18 /min [facility] Oxygen saturation in Arterial blood by Pulse oximetry 05-04 13:05:00 100 /min [facility] Body weight 2019-05-04 12:19:00 93.759 kg [facility] BMI 2019-05-04 12:19:00 32.37 kg/m2 [facility] Body height 2019-04-21 09:52:00 170.2 cm [facility] Body Temperature 2017-02-13 15:34:00 97.8 F [facility] (LUF/BHUPINDER/SA) Respiratory Rate 2017-02-13 15:34:00 17 /min [facility] (LUF/BHUPINDER/SA) O2% BldC Oximetry 2017-02-13 15:34:00 97 % [facility] (LUF/BHUPINDER/SA) BP Systolic 2017-02-13 15:34:00 154 mm[Hg] [facility] (LUF/BHUPINDER/SA) BP Diastolic 2017-02-13 15:34:00 95 mm[Hg] [facility] (LUF/BHUPINDER/SA) Height 2017-02-13 15:34:00 68 in [facility] (LUF/BHUPINDER/SA) Weight Measured 2017-02-13 15:34:00 220.46 lbs [facility] (LUF/BHUPINDER/SA) BMI (Body Mass Index) 2017-02-13 15:34:00 33.7 [facility] (LUF/BHUPINDER/SA) Procedures Procedure Date / Time Performed Performing Clinician Sour e TROPONIN 2019-11-03 21:25:00 Tarik Wittodist XR CHEST 1 VW PORTABLE 2019-11-03 20:10:12 Tarik Witt CBC WITH PLATELET AND DIFFERENTIAL 2019-11-03 19:55:00 Tarik Witt PROTHROMBIN TIME WITH INR 2019-11-03 19:55:00 Tarik Witt PARTIAL THROMBOPLASTIN TIME (PTT) 2019-11-03 19:55:00 Tarik Witt COMPREHENSIVE METABOLIC PANEL 2019-11-03 19:55:00 [place] CREATINE KINASE, TOTAL (CPK) 2019-11-03 19:55:00 Noelle Witt TROPONIN 2019-11-03 19:55:00 Tarik Witt ethodist B NATRIURETIC PEPTIDE 2019-11-03 19:55:00 Tarik Witt ston [facility] ESTIMATED GFR 2019-11-03 19:55:00 Tarik Witt ethodist ECG ED PRELIMINARY INTERPRETATION 2019-11-03 19:40:53 Tarik Witt HC COMPLETE BLD COUNT W/AUTO DIFF 2019-09-27 05:44:00 Tarik Witt COMPREHENSIVE METABOLIC PANEL 2019-09-27 05:44:00 [facility] ESTIMATED GFR 2019-09-27 05:44:00 EdvinjoriTarik ethodist ECG 12-LEAD 2019-09-27 00:46:15 Edvinjori Tarik Saul Maggie ethodist ECG 12-LEAD 2019-09-26 21:07:05 CandiceradamesTarik ethodist TROPONIN 2019-09-26 21:00:00 CandiceradamesTarik ethodist COVID-19 QUALITATIVE PCR 2019-09-26 18:34:00 Noelle Wittk Radames Bunn TROPONIN 2019-09-26 17:55:00 EdvinjoriTarik Maggie ethodist XR CHEST 1 VW PORTABLE 2019-09-26 15:50:50 Tarik Witt HC COMPLETE BLD COUNT W/AUTO DIFF 2019-09-26 14:45:00 Tarik Witt COMPREHENSIVE METABOLIC PANEL 2019-09-26 14:45:00 Eduar Clemente Radames Bunn TROPONIN 2019-09-26 14:45:00 Tarik Witt ethodist B NATRIURETIC PEPTIDE 2019-09-26 14:45:00 Eduar Tarik Radames Wilsonu ston Shinto ESTIMATED GFR 2019-09-26 14:45:00 Tarik Witt ethodist CREATINE KINASE, TOTAL (CPK) 2019-09-26 14:45:00 Noelle Witt miracle Radames Bunn ECG ED PRELIMINARY INTERPRETATION 2019-09-26 14:37:00 Tarik Witt ECG 12-LEAD 2019-09-26 14:26:29 Tarik Witt ethodist REPORT OF PROCEDURE - ENDOSCOPY SCAN 2019-09-05 15:33:05 Pro vider, Default Scanning [facility] ECG ED PRELIMINARY INTERPRETATION 2019-08-29 15:57:00 Kyree Melendez XR CHEST 1 VW PORTABLE 2019-08-29 15:00:52 Kyree Hinkle istopher Kg Bunn BASIC METABOLIC PANEL 2019-08-29 14:28:00 Kyree Hinklei stopher Kg Bunn HC COMPLETE BLD COUNT W/AUTO DIFF 2019-08-29 14:28:00 Vesna Melendezleón Schwabsuleiman Kg Bunn ESTIMATED GFR 2019-08-29 14:28:00 Kyree Hinkle Neto r Kg Ozunaist TROPONIN 2019-08-29 13:26:00 Kyree Hinkle Neto r Kg Ozunaist ECG 12-LEAD 2019-08-29 13:16:00 Kyree Hinkle Neto price Bunn BASIC METABOLIC PANEL (7) 2019-08-29 11:36:00 Jazmín Otti radames [facility] CBC W/PLT COUNT & AUTO DIFFERENTIAL 2019-08-29 11:36:00 Jazmín Ottil [facility] ECG 12-LEAD 2019-08-29 11:26:49 Unknown, Hl7 Doctor [facility] CT LUMBAR SPINE WITHOUT IV CONTRAST 2019-08-12 15:05:00 Lytwjeanette Blane Hemant [facility] CT BRAIN WITHOUT IV CONTRAST 2019-08-12 15:05:[address] [facility] [address] SPINE CERVICAL WITHOUT IV CONTRAST 2019-08-12 15:05:00 L ytwjeanette Blane JensenHemant [facility] BASIC METABOLIC PANEL (7) 2019-08-12 14:25:00 LytwBlane reid [facility] CBC W/PLT COUNT & AUTO DIFFERENTIAL 2019-08-12 14:25:00 Lytwjeanette Blane JensenHemant [facility] URINALYSIS W/ MICROSCOPIC 2019-05-04 16:54:00 Isadora Brand [facility] MRI LUMBAR SPINE W WO CONTRAST 2019-04-30 12:14:01 Hanna Ching URINE CULTURE 2019-04-30 10:00:00 Oziel Ching URINALYSIS SCREEN AND MICROSCOPY, WITH REFLEX TO CULTURE 10:00:00 Oziel Ching BASIC METABOLIC PANEL 2019-04-30 08:20:00 Oziel Ching HEPATIC FUNCTION PANEL 2019-04-30 08:20:00 Oziel Ching LIPASE LEVEL 2019-04-30 08:20:00 Oziel Ching on Shinto HC COMPLETE BLD COUNT W/AUTO DIFF 2019-04-30 08:20:00 Oziel Ching ESTIMATED GFR 2019-04-30 08:20:00 Oziel Ching on Shinto URINE CULTURE 2019-04-07 17:01:00 Eloisa Galvan ethodist URINALYSIS SCREEN AND MICROSCOPY, WITH REFLEX TO CULTURE 17:01:00 Eloisa Galvan URINE DRUG SCREEN 2019-04-07 16:15:00 Wilder Cross [facility] COMPREHENSIVE METABOLIC PANEL 2019-04-07 16:10:00 Eloisa Galvan HC COMPLETE BLD COUNT W/AUTO DIFF 2019-04-07 16:10:00 Johnnie Galvan ESTIMATED GFR 2019-04-07 16:10:00 Eloisa Galvan ethodist MRI LUMBAR SPINE WO CONTRAST 2019-04-07 15:28:38 Eloisa Galvan Ma XR SPINE LUMBAR COMPLETE MIN 4 VIEWS 2019-03-05 14:50:00 LytwBlane reid [facility] BASIC METABOLIC PANEL (7) 2019-02-26 18:12:00 Chandler Charles [facility] CBC W/PLT COUNT & AUTO DIFFERENTIAL 2019-02-26 18:12:00 Selena Charles [facility] MR LUMBAR SPINE WITHOUT IV CONTRAST 2019-02-26 17:54:00 Selena Charles [facility] XR LUMBAR SPINE 2 OR 3 VIEWS 2019-02-26 16:21:00 Chandler Charles [facility] URINALYSIS WITH MICROSCOPIC IF INDICATED 2019-02-26 14:34:00 Chandler Carbone [facility] US SCROTAL 2019-02-23 14:57:09 Socrates Stephens Met hodist URINE CULTURE 2019-02-23 12:59:00 Socrates Stephens Met hodist URINALYSIS SCREEN AND MICROSCOPY, WITH REFLEX TO CULTURE 201 12-05-00 12:59:[address] ABDOMEN PELVIS W CONTRAST 2019-02-23 12:13:19 Alevism, Nadim Bi n Saul Shinto HC COMPLETE BLD COUNT W/AUTO DIFF 2019-02-23 10:00:00 Alevism, Nad im Bin Kg Shinto COMPREHENSIVE METABOLIC PANEL 2019-02-23 10:00:00 Alevism, Nadim B in Saul Shinto AMYLASE LEVEL 2019-02-23 10:00:00 Alevism, Harshim Anthony Saul Met hodist LIPASE LEVEL 2019-02-23 10:00:00 Alevism Nadim Anthony Kg Met hodist ESTIMATED GFR 2019-02-23 10:00:00 Alevism, Harshim Anthony [facility] Met hodist ECG ED PRELIMINARY INTERPRETATION 2019-02-23 09:56:14 Alevism Nad im Anthony Saul Shinto ECG 12-LEAD 2019-02-23 09:52:33 Alevism, Socrates Cruz Kg Met hodist LIPID PROFILE 2019-02-13 11:16:[address] LUMBAR SPINE WO CONTRAST 2019-02-03 12:57:29 Jade Acevedo [place] [facility] CT LUMBAR SPINE WITHOUT IV CONTRAST 2019-01-05 13:20:00 Kimmy Rivera [facility] Plan of Care Planned Activity Planned Date Details Comments Source Future Scheduled Test 2019-12-25 00:00:00 IMM Influenza Seas onal Dec to May (>/= 19 yrs) [code = IMM Influenza Seasonal Dec to May (>/= 19 yrs)] [facility] Scheduled Test 2019-10-25 00:00:00 INFLUENZA VACCINE [code = INFLUENZA VACCINE] [facility] Scheduled Test 2019-10-09 00:00:00 Screening for alexus gnant neoplasm of colon (procedure) [code = 332331279] [facility] Scheduled Test 2011-08-26 00:00:00 COLONOSCOPY SCREEN ING [code = COLONOSCOPY SCREENING] [facility] Scheduled Test 2011-08-26 00:00:00 SHINGLES VACCINES (#1) [code = SHINGLES VACCINES (#1)] [facility] Encounters Start Date/Time End Date/Time Encounter Type Admission Type Attendi [facility] Care Department Encounter ID Source 2019-11-03 00:00:00 2019-11-03 00:00:00 Emergency [place] [id number] [facility] 2019-11-03 00:00:00 2019-11-03 00:00:00 Telephone Miracle Araya [facility] JARAD ALVAREZ [id number] 2019-10-22 13:49:29 2019-10-22 14:04:29 Office Visit Raj Garcia [facility] [id number] 2019-09-26 00:00:00 2019-09-27 00:00:00 Outpatient ANI CHRISTENSEN [place] [id number] [facility] 2019-08-29 00:00:00 2019-08-29 00:00:00 Emergency VESNA HINKLE [place] [id number] [facility] 2019-05-04 12:29:35 2019-05-04 12:29:35 Emergency [facility] [id number] [facility] 2019-04-30 00:00:00 2019-04-30 00:00:00 Emergency JAYLIN CHING [place] [id number] [facility] 2019-04-21 09:52:19 2019-04-21 09:52:19 Outpatient [facility] [id number] [facility] 2019-04-07 11:40:59 2019-04-07 11:40:59 Outpatient [facility] [id number] [facility] 2019-04-07 10:27:58 2019-04-07 10:27:58 Outpatient [facility] [id number] [facility] 2019-04-07 00:00:00 2019-04-07 00:00:00 Outpatient [facility] [id number] [facility] 2019-04-07 00:00:00 2019-04-07 00:00:00 Emergency [facility] [id number] [facility] 2019-04-04 00:00:00 2019-04-04 00:00:00 Outpatient [facility] [id number] [facility] 2019-03-14 07:57:31 2019-03-14 07:57:31 Outpatient [facility] [id number] [facility] 2019-02-13 11:09:23 2019-02-13 11:09:23 Outpatient [facility] [id number] [facility] 2019-02-13 10:12:05 2019-02-13 10:12:05 Outpatient [facility] [id number] [facility] 2019-02-13 00:00:00 2019-02-13 00:00:00 Outpatient [facility] [id number] [facility] 2019-01-13 09:34:52 2019-01-13 09:34:52 Outpatient [facility] [id number] [facility] 2019-01-08 08:54:00 2019-01-08 08:54:00 Emergency E MHSE MHSE [id number] [facility] 2019-01-05 15:11:00 2019-01-05 15:11:00 Emergency E MHTW TW 7542 [facility] 2019-01-01 12:40:55 2019-01-01 12:40:55 Outpatient [facility] [id number] [facility] 2018-12-19 18:05:00 2018-12-19 18:05:00 Emergency E MHSE MHSE [id number] [facility] 2018-12-02 12:35:00 2018-12-02 12:35:00 Emergency E MHTW TW 7540 [facility] 2018-12-02 00:00:00 2018-12-02 00:00:00 Outpatient [facility] [id number] [facility] 2018-11-27 11:40:00 2018-11-27 11:40:00 Emergency E MHSE MHSE [id number] [facility] 2018-11-12 20:17:00 2018-11-12 20:17:00 Emergency E MHSE MHSE [id number] [facility] 2018-11-12 00:00:00 2018-11-12 00:00:00 Outpatient [facility] [id number] [facility] 2018-11-12 00:00:00 2018-11-12 00:00:00 Outpatient [facility] [id number] [facility] 2018-11-08 00:00:00 2018-11-08 00:00:00 Outpatient [facility] [id number] [facility] 2018-10-30 20:52:00 2018-10-30 20:25:00 Inpatient E MHSE MED [id number] [facility] 2018-10-30 16:53:00 2018-10-30 16:53:00 Outpatient E MHSE MED [id number] [facility] 2018-10-22 16:05:28 2018-10-22 16:05:28 Outpatient [facility] [id number] [facility] 2018-10-22 14:46:09 2018-10-22 14:46:09 Outpatient [facility] [id number] [facility] 2018-10-22 00:00:00 2018-10-22 00:00:00 Outpatient [facility] [id number] [facility] 2018-10-10 00:00:00 2018-10-10 00:00:00 Outpatient [facility] [id number] [facility] 2018-10-08 11:27:30 2018-10-08 11:27:30 Outpatient [facility] [id number] [facility] 2018-10-07 10:30:12 2018-10-07 10:30:12 Outpatient [facility] [id number] [facility] 2018-10-07 00:00:00 2018-10-07 00:00:00 Outpatient [facility] [id number] [facility] 2018-10-07 00:00:00 2018-10-07 00:00:00 Outpatient [facility] [id number] [facility] 2018-10-07 00:00:00 2018-10-07 00:00:00 Outpatient [facility] [id number] [facility] 2018-10-01 13:24:52 2018-10-01 13:24:52 Outpatient [facility] [id number] [facility] 2018-10-01 12:43:32 2018-10-01 12:43:32 Outpatient [facility] [id number] [facility] 2018-09-24 15:17:00 2018-09-24 15:17:00 Emergency E MHSE MHSE [id number] [facility] 2018-08-26 15:18:00 2018-08-26 15:18:00 Emergency E MHSE MHSE [id number] [facility] 2018-08-20 15:02:00 2018-08-20 15:02:00 Emergency E MHSE MHSE [id number] [facility] 2018-08-11 18:07:00 2018-08-11 18:07:00 Inpatient E MHSE MED [id number] [facility] 2018-08-02 16:44:00 2018-08-02 16:44:00 Emergency E MHSE MHSE [id number] [facility] 2018-07-04 18:49:00 2018-07-04 18:49:00 Emergency E MHSE MHSE [id number] [facility] 2018-06-18 17:44:00 2018-06-18 17:44:00 Emergency E MHSE MHSE [id number] [facility] 2018-06-05 09:50:00 2018-06-05 09:50:00 Emergency E MHSE MHSE [id number] [facility] 2018-06-04 19:12:00 2018-06-04 19:12:00 Emergency E [facility] [id number] [facility] 2018-06-04 12:29:00 2018-06-04 12:29:00 Emergency E MHSE SE 7526 [facility] 2018-05-20 10:32:00 2018-05-20 12:53:00 Departed Emergency Room 1 DAMI HUMPHREYS [facility] [id number] [facility] 2017-07-04 16:06:00 2017-07-04 17:03:00 Departed Emergency Room [facility] [id number] [facility] 2017-06-17 14:15:00 2017-06-17 16:25:00 Departed Emergency Room ER DONALD CASTRO [facility] [id number] [facility] 2017-06-11 14:28:00 2017-06-11 14:28:00 Emergency E [facility] [id number] [facility] 2017-06-07 10:59:00 2017-06-07 11:50:00 Departed Emergency Room [facility] [id number] [facility] 2017-05-23 16:27:00 2017-05-23 20:37:00 Departed Emergency Room ER DAMI HUMPHREYS [facility] [id number] [facility] 2017-05-23 13:36:00 2017-05-23 13:36:00 Emergency [facility] MED [id number] [facility] 2017-02-13 15:26:00 2017-02-13 18:05:00 UNSPECIFIED SPRAIN LEFT HIP INITIAL 1 [facility], [address], [place], [place] [address] [facility] [id number] [facility] (LUF /BHUPINDER/SA) Results Test Description Test Time Test Comments Results Result Comments Source CXR [facility] 2019-11-04 15:30:00 [facility] [address] [place] [address] Patient Name: FREDERIC SUMNER MR #: [id number] : 1960 Age/Sex: 59/M Req #: [id number] Adm Physician: Ordered by: DONALD NUÑEZ MD Report #: [id number] [facility] Room/Bed: Procedure: [id number] HOPD/CXR 1 [facility] Exam Date: 11/04/19 Exam Time: 1504 REPORT STATUS: Signed EXAMINATION: CXR 1 [facility] INDICATION: Hypertension, chest pain COMPARISON: None FINDINGS: LINES/TUBES:EKG leads overlie the chest. LUNGS:The lungs are well- inflated. No focal consolidation or pulmonary edema. PLEURA:No pleural e ffusion or pneumothorax. MEDIASTINUM:The cardiomediastinal silhouette appears normal in size and shape. BONES/SOFT TISSUES:No acute osseous injury. ABDOMEN:No free air under the diaphragm. IMPRESSION: No focal pneumonia or pulmonary edema. Signed by: Esther Stewart MD on 11/04/2019 3:30 PM Dictated By: SETHER STEWART MD 29 Transcribed By: ALEJANDRA on 11/04/191529 COPY TO: DONALD NUÑEZ MD Troponin 2019-11-03 21:56:52 Test Item Troponin (test code = 93824-4) <0.006 0-0.04 In patients suspected of having a myocardial infarction, along with all other appropriate clinical measures and actions including ECG and other diagnostics as appropriate, measure Ultra TnI at 0 hrs and at 3 hrs.Myocardial infarction VERY LIKELYThe 0 hr TnI level is > 0.10 ng/mL Jordan cardial infarction LIKELYThe 0 hr TnI level is > 0.04 ng/mL and 3 hr level is increased or decreased by at least 0.020 ng/mL Myocardi al infarction VERY UNLIKELYBoth the 0 hr and 3 hr TnI levels <= 0.04 ng/mL(within normal limits) OR 0 hr is > 0.04 ng/mL and 3 hr is increased OR decreased by less than 0.020 ng/mL [facility] natriuretic [id number] 20:24:13* Test Item Value Reference Range Interpretation Comments BNP (test code = 12025-9) 7 pg/mL 0-100 [facility] [id number] 20:18:37* Test Item Value Reference Range Interpretation Comments Sodium (test code = 2951-2) 137 135- 148 mEq/L Potassium (test code = 2823-3) 3.6 3.5- 5.0 mEq/L Chloride (test code = 2075-0) 102 98- 112 mEq/L CO2 (test code = 2027-) 22 24- 31 mEq/L L Anion gap (test code = 25930-5) 13@ANIO 7- 15 mEq/L BUN (test code = 3094-0) 10 mg/dL 6-20 Creatinine (test code = 2160-0) 0.80 mg/dL 0.7-1.2 Glucose (test code = 2345-7) 105 mg/dL 65-99 H Calcium (test code = 23135-3) 9.9 mg/dL 8.3-10.2 Protein (test code = 2885-2) 8.0 g/dL 6.3-8.3 -Lynn 4.6- 7.0 g/dL1 week 4.4-7.6 g/dL7 months-1year 5.1-7.3 g/dL1-2 years 5.6-7.5 g/dL>3 years 6.0-8.0 g/kF36-240 6.3-8.3 g/dL Albumin (test code = 1751-7) 4.9 g/dL 3.5-5 A/G ratio (test code = 1759-0) 1.6 0.7-3.8 Alkaline phosphatase (test code = 6768-6) 80 U/L 40-129 AST (test code = 1920-8) 17 U/L 10-50 ALT (test code = 1742-6) 22 U/L 5-50 Total bilirubin (test code = 1975-2) 0.4 mg/dL 0-1.2 Lab Interpretation (test code = 18466-9) Abnormal [facility] MethodistEstimated [id number] 20:18:36* Test Item Value Reference Range Interpretation Comments Estimated GFR (test code = 5488) >=90 mL/min/1.73 m2 Catergory Units InterpretationG1 >=90 Normal or highG2 60-89 Mildly hgxbjntmeY1t 45-59 Mildly to moderately fckthhwjeQ3z 30-44 Moderately to severely decreasedG4 15-29 Severely decreasedG5 <15 Kidney failureThe eGFR was calculated using the Chronic Kidney Disease Epidemiology Collaboration (CKD-EPI) equation. Interpretation is based on recommendations of the National Kidney Foundation-Kidney Disease Outcomes Quality Initiative (NKF-KDOQI) published in 2014. Kg BunnCreatine kinase, total (CPK)2019-11-03 20:18:35* Test Item Value Reference Range Interpretation Comments Creatine kinase (test code = 2157-6) 134 U/L 39-308 Kg BunnProthrombin time with [id number] 20:12:51* Test Item Value Reference Range Interpretation Comments Prothrombin time (test code = 5902-2) 12.4 11.5- 14.5 sec INR (test code = 95699-9) 0.9 Th e International Normalized Ratio (INR) is a therapeutic monitoring tool for patients who are stable on oral anticoagulant therapy. An INR of 2.0-3.0 is suggested for deep vein thrombosis/pulmonary embolism. [place] MethodistPartial thromboplastin time, vwkmjhocp4247-12-25 20:12:51* Test Item Value Reference Range Interpretation Comments PTT (test code = 59177-9) 27.9 23.0- 36.0 sec PTT therapeutic range for unfractionated heparin is61.0-112.0 seconds which corresponds to Anti-Xa0.3-0.7 U/ml. [facility] MethodistXR Chest 1 Vw [id number] 20:11:34Hm Interface, Radiology Results - 11/03/2019 8:14 PM CDTEXAMINATION: XR CHEST 1 VW PORTABLECLINICAL HISTORY: 59 years Male chest painCOMPARISON: September 3IMPRESSION:The cardiomediastinal silhouette is not enlarged The lungs are clear The osseous structures are within normal limits... [facility] with platelet and twczfringelr5846-20-27 20:04:36* Test Item Value Reference Range Interpretation Comments WBC (test code = 93154-6) 8.53 4.50- 11.00 k/uL RBC (test code = 70860-3) 4.74 m/uL 4.4-6 HGB (test code = 718-7) 15.1 g/dL 14-18 HCT (test code = 4544-3) 43.4 % 41-51 MCV (test code = 787-2) 91.6 fL 82-100 MCH (test code = 785-6) 31.9 pg 27-34 MCHC (test code = 786-4) 34.8 g/dL 31-37 RDW - SD (test code = 30744-4) 42.0 fL 37-55 MPV (test code = 18937-5) 9.6 fL 8.8-13.2 Platelet count (test code = 62184-0) 251 150- 400 k/uL Nucleated RBC (test code = 58074-8) 0.00 /100 WBC Neutrophils (test code = 51803-3) 67.7 % 39-69 Lymphocytes (test code = 82771-6) 19.1 % 25-45 L Monocytes (test code = 41558-7) 7.4 % 0-10 Eosinophils (test code = 51715-7) 2.9 % 0-5 Basophils (test code = 80040-0) 0.6 % 0-1 Lab Interpretation (test code = 73574-9) Abnormal [facility] ED Preliminary Interpretation - Not an Ykmlt6456-93-03 19:40:53Tarik Witt MD 11/04/2019 11[facility] Interpretation - Not an OrderPerformed by: Tarik Witt MDAuthorized by: Tarik Witt MD ECG reviewed by ED Physician in the absence of a clinical dietitian: yes Interpretation: Interpretation: normal Rate: ECG rate: 89 ECG rate assessment: normal Rhythm: Rhythm: sinus rhythm Ectopy: Ectopy: none QRS: QRS axis: Normal QRS intervals: NormalConduction: Conduction: abnormal Abnormal conduction: incomplete RBBB ST segments: ST segments: NormalT waves: T waves: normal [facility] 2019[facility] 05:33:00* Test Item Value Reference Range Interpretation Comments TROPONIN-I (test code = TROPI) <0.02 NG/ML 0.00-0.06 N REFERENCE RANGE TROPONIN I HEALTHY INDIVIDUALS: <0.06 ng/mL R/O ISCHEMIA: 0.07 - 0.60 ng/mL CUT-OFF RANGE FOR AMI: 0.60 - 1.5 ng/mL [id number] 03:55:00* Test Item Value Reference Range Interpretation Comments TROPONIN-I (test code = TROPI) <0.02 NG/ML 0.00-0.06 N REFERENCE RANGE TROPONIN I HEALTHY INDIVIDUALS: <0.06 ng/mL R/O ISCHEMIA: 0.07 - 0.60 ng/mL CUT-OFF RANGE FOR AMI: 0.60 - 1.5 ng/mL PROTHROMBIN [id number] 21:00:00* Test Item Value Reference Range Interpretation Comments PROTHROMBIN TIME PATIENT (test code = PTP) 12.2 SECONDS 9.9-12.8 N INTERNATIONAL NORMAL RATIO (test code = INR) 1.0 0.89-1.14 N THE INR IS TO BE USED ONLY FOR MONITORING ORAL ANTICOAGULANTTHERAPY. THE FOLLOWING ARE SUGGESTED RANGES FROM THEAMERICAN COLLEGE OF CHEST PHYSICIANS:INDICATION INR VALUEPROPHYLAXIS OF VENOUS THROMBOSIS (ORTHOPEDIC SURGERY) 2.0 - 3.0PROPHYLAXIS OF VENOUS THROMBOSIS (OTHER THAN HIGH-RISK SURGERY) 2.0 - 3.0TREATMENT OF DEEP VEIN THROMBOSIS OR PULMONARY EMBOLISM 2.0 - 3.0PREVENTION OF SYSTEMIC EMBOLISM TISSUE HEART VALVES 2.0 - 3.0 ACUTE MYOCARDIAL INFARCTION (TO PREVENT SYSTEMIC EMBOLISM) 2.0 - 3.0 ACUTE MYOCARDIAL INFARCTION (TO PREVENT RECURRENT INFARCT) 2.5 - 3.0 VALVULAR HEART DISEASE 2.0 - 3.0 ATRIAL FIBRILATION 2.0 - 3.0BILEAFLET MECHANICAL VALVE IN AORTIC POSITION 2.0 - 3.0MECHANICAL PROSTHETIC VALVES (HIGH RISK) 2.5 - 3.5PRESENCE OF LUPUS ANTICOAGULANT OR ANTIPHOSPHOLIPID ANTIBODIES 2.5 - 3.5 SAMPLE CLOTTED REQUEST RECOLLECT [facility] . KM SAVAGE THROMBOPLASTIN TIME [id number] 21:00:00* Test Item Value Reference Range Interpretation Comments THROMBOPLASTIN TIME PARTIAL (test code = PTT) 25.00 SECONDS 25.86-3 6.07 L [facility] Therapeutic Range - APTT of 55.8-85.4 secondscorrelates with plasma heparin concentration of 0.2-0.4 u/mL New range effective - 05/21/2016 SAMPLE CLOTTED REQUEST RECOLLECT [facility] . 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 No intravenous co ntrast was administered. One or more of the following dose reduction techn iques were used: Automated exposure control, adjustment of the mA and/or k V according to patient size, and/or utilization of iterative reconstructio n technique. Findings: There is prominence of the ventricles and sulci consistent with mild supratentorial cerebral vol ume loss. The basilar cisterns are patent. There is no intracranial hemorrhage or mass effect. No intra-axial or extra-axial fluid collections are seen. There are mild periventricular and subcortical white matter hypodensities which are nonspecific, but likely t he sequelae of chronic microvascular ischemia. This appearance makes evalu ation for underlying acute infarct difficult The visualized paranasal sinuses and mastoid air cells are clear. Impr ession: 1. No acute intracranial hemorrhage or significant ma ss effect 2. Additional findings as above at 2027 Reported and signed by: Faiza Marley M.D. 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 [id number] Acct: [id number] Dis Date: Status: REG ER PHONE #: [phone] Exam Date: 10/19/20192010 FAX #: [phone] Reason: left arm numbness EXAMS: CPT CODE: [id number] CT HEAD/BRAIN W/O CONT 51900 <Continued> CC: Dami Huerta NP Technologist: EWA COLLINS Trnscrd Dt/Tm: 10/19/2019 (2027) [email or web address] Orig Print D/T: S: 10/19/2019 (2030 PAGE 2 Signed Report COMPREHENSIVE METABOLIC PANEL 2019-10-19 20:11:00* Test Item Value Reference Range Interpretation Comments SODIUM (test code = NA) 137 mmol/l 134.0-147.0 N POTASSIUM (test code = K) 3.6 mmol/L 3.6-5.2 N CHLORIDE (test code = CL) 104 mmol/l 98.0-107.0 N CARBON DIOXIDE (test code = CO2) 24.5 mmol/l 21.0-33.0 N ANION GAP (test code = GAP) 12.1 0-20 N GLUCOSE (test code = GLU) 95 mg/dl 70.0-110.0 N BLOOD UREA NITROGEN (test code = BUN) 12 mg/dl 7.0-18.0 N CREATININE (test code = CREAT) 1.06 mg/dL 0.60-1.30 N GFR NON BLACK (test code = GFRNONBLACK) 76 mL/min 90-95 L GFR BLACK (test code = GFRBLACK) 92 mL/min 109-115 L TOTAL PROTEIN (test code = PROT) 7.1 GM/DL 6.0-8.1 N ALBUMIN (test code = ALB) 3.7 gm/dL 3.2-4.7 N CALCIUM (test code = CA) 8.6 mg/dl 8.0-10.5 N BILIRUBIN TOTAL (test code = BILT) 0.3 mg/dl 0.0-1.0 N SGOT/AST (test code = AST) 18 Units/L 15.0-37.0 N SGPT/ALT (test code = ALT) 29 Units/L 12.0-78.0 N ALKALINE PHOSPHATASE TOTAL (test code = ALKP) 78 Units/L 50.0-136 .0 N [id number] 20:11:00* Test Item Value Reference Range Interpretation Comments LIPASE (test code = LIP) 54 Units/L 65.0-230.0 L B-TYPE NATRIURETIC [id number] 20:11:00* Test Item Value Reference Range Interpretation Comments B-TYPE NATRIURETIC PEPTIDE (test code = BNP) 51.1 PG/ML 5-100 N CARDIAC ENZYMES [id number] 20:11:00* Test Item Value Reference Range Interpretation Comments CREATINE KINASE (CK) (test code = CK) 140 Units/L 39-308 N TROPONIN-I (test code = TROPI) <0.02 NG/ML 0.00-0.06 N REFERENCE RANGE TROPONIN I HEALTHY INDIVIDUALS: <0.06 ng/mL R/O ISCHEMIA: 0.07 - 0.60 ng/mL CUT-OFF RANGE FOR AMI: 0.60 - 1.5 ng/mL COMPREHENSIVE METABOLIC [id number] 20:04:00* Test Item Value Reference Range Interpretation Comments SODIUM (test code = NA) 137 mmol/l 134.0-147.0 N POTASSIUM (test code = K) 3.6 mmol/L 3.6-5.2 N CHLORIDE (test code = CL) 104 mmol/l 98.0-107.0 N CARBON DIOXIDE (test code = CO2) 24.5 mmol/l 21.0-33.0 N ANION GAP (test code = GAP) 12.1 0-20 N GLUCOSE (test code = GLU) 95 mg/dl 70.0-110.0 N BLOOD UREA NITROGEN (test code = BUN) 12 mg/dl 7.0-18.0 N CREATININE (test code = CREAT) 1.06 mg/dL 0.60-1.30 N GFR NON BLACK (test code = GFRNONBLACK) 76 mL/min 90-95 L GFR BLACK (test code = GFRBLACK) 92 mL/min 109-115 L TOTAL PROTEIN (test code = PROT) 7.1 GM/DL 6.0-8.1 N ALBUMIN (test code = ALB) 3.7 gm/dL 3.2-4.7 N CALCIUM (test code = CA) 8.6 mg/dl 8.0-10.5 N BILIRUBIN TOTAL (test code = BILT) 0.3 mg/dl 0.0-1.0 N SGOT/AST (test code = AST) 18 Units/L 15.0-37.0 N SGPT/ALT (test code = ALT) 29 Units/L 12.0-78.0 N ALKALINE PHOSPHATASE TOTAL (test code = ALKP) 78 Units/L 50.0-136 .0 N [id number] 20:04:00* Test Item Value Reference Range Interpretation Comments LIPASE (test code = LIP) 54 Units/L 65.0-230.0 L B-TYPE NATRIURETIC [id number] 20:04:00* Test Item Value Reference Range Interpretation Comments B-TYPE NATRIURETIC PEPTIDE (test code = BNP) PG/ML 5-100 CARDIAC ENZYMES [id number] 20:04:00* Test Item Value Reference Range Interpretation Comments CREATINE KINASE (CK) (test code = CK) 140 Units/L 39-308 N TROPONIN-I (test code = TROPI) <0.02 NG/ML 0.00-0.06 N REFERENCE RANGE TROPONIN I HEALTHY INDIVIDUALS: <0.06 ng/mL R/O ISCHEMIA: 0.07 - 0.60 ng/mL CUT-OFF RANGE FOR AMI: 0.60 - 1.5 ng/mL COMPREHENSIVE METABOLIC [id number] 19:58:00* Test Item Value Reference Range Interpretation Comments SODIUM (test code = NA) 137 mmol/l 134.0-147.0 N POTASSIUM (test code = K) 3.6 mmol/L 3.6-5.2 N CHLORIDE (test code = CL) 104 mmol/l 98.0-107.0 N CARBON DIOXIDE (test code = CO2) 24.5 mmol/l 21.0-33.0 N ANION GAP (test code = GAP) 12.1 0-20 N GLUCOSE (test code = GLU) mg/dl 70.0-110.0 BLOOD UREA NITROGEN (test code = BUN) mg/dl 7.0-18.0 CREATININE (test code = CREAT) mg/dL 0.60-1.30 GFR NON BLACK (test code = GFRNONBLACK) mL/min 90-95 GFR BLACK (test code = GFRBLACK) mL/min 109-115 TOTAL PROTEIN (test code = PROT) gm/dL 6.4-8.2 ALBUMIN (test code = ALB) gm/dl 3.2-4.7 CALCIUM (test code = CA) mg/dl 8.0-10.5 BILIRUBIN TOTAL (test code = BILT) mg/dl 0.0-1.0 SGOT/AST (test code = AST) Units/L 15.0-37.0 SGPT/ALT (test code = ALT) Units/L 12.0-78.0 ALKALINE PHOSPHATASE TOTAL (test code = ALKP) Units/L 50.0-136 .0 [id number] 19:58:00* Test Item Value Reference Range Interpretation Comments LIPASE (test code = LIP) Units/L 65.0-230.0 B-TYPE NATRIURETIC [id number] 19:58:00* Test Item Value Reference Range Interpretation Comments B-TYPE NATRIURETIC PEPTIDE (test code = BNP) PG/ML 5-100 CARDIAC ENZYMES [id number] 19:58:00* Test Item Value Reference Range Interpretation Comments CREATINE KINASE (CK) (test code = CK) Units/L 39-308 TROPONIN-I (test code = TROPI) NG/ML 0.00-0.06 CBC W/AUTO [id number] 19:48:00* Test Item Value Reference Range Interpretation Comments WHITE BLOOD CELL (test code = WBC) 7.8 K/mm3 4.5-11.0 N RED BLOOD CELL (test code = RBC) 4.44 M/mm3 4.40-5.90 N HEMOGLOBIN (test code = HGB) 14.5 gm/dL 13.0-17.0 N HEMATOCRIT (test code = HCT) 41.4 % 36.0-48.0 N MEAN CELL VOLUME (test code = MCV) 93.2 UM3 80.0-94.0 N MEAN CELL HGB (test code = MCH) 32.7 UUG 25.5-32.5 H MEAN CELL HGB CONCETRATION (test code = MCHC) 35.0 gm/dL 29.0-35. 5 N RED CELL DISTRIBUTION WIDTH (test code = RDW) 13.0 % 11.5-15. 0 N RED CELL DISTRIBUTION WIDTH SD (test code = RDW-SD) 44.6 fL 34 .8-50.2 N PLATELET COUNT (test code = PLT) 205 K/mm3 150-400 N MEAN PLATELET VOLUME (test code = MPV) 9.6 fl 7.4-10.4 N NEUTROPHIL % (test code = NT%) 68.9 % 49.0-76.0 N IMMATURE GRANULOCYTE % (test code = IG%) 1.4 % 0.0-0.4 H LYMPHOCYTE % (test code = LY%) 18.5 % 23.0-38.0 L MONOCYTE % (test code = MO%) 8.1 % 1.0-10.0 N EOSINOPHIL % (test code = EO%) 2.6 % 1.0-5.0 N BASOPHIL % (test code = BA%) 0.5 % 0.0-1.0 N NEUTROPHIL # (test code = NT#) 5.4 K/mm3 2.4-6.3 N IMMATURE GRANULOCYTE # (test code = IG#) 0.11 x10 3/uL 0.00-0.07 H LYMPHOCYTE # (test code = LY#) 1.4 K/mm3 1.2-4.0 N MONOCYTE # (test code = MO#) 0.6 K/mm3 0.0-0.6 N EOSINOPHIL # (test code = EO#) 0.2 K/MM3 0.0-0.7 N BASOPHIL # (test code = BA#) 0.0 K/mm3 0.0-0.2 N - XR CHEST 1 [id number] 19:12:00 FAX: Dami Bustamante [phone] [place]: St: REG Name: FREDERIC TALLEY [facility] : [birth year] 63 Age/S: 59/M [address] [facility] Unit #: [id number] Loc: [address] 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 The heart appears unchanged in size. Pulmonary vasculature is unre markable. The visualized lung grayson appear to be free of disease. The bones appear unchanged. IMPRESSION: There is no radiographic evidence of acute cardiopulmonary disease. at 191 Reported and signed by: Justen Olvera M.D. 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 [id number] Acct: [id number] Dis Date: Status: REG ER PHONE #: [phone] Exam Date: 10/19/20191910 FAX #: [phone] Reason: CHEST PAIN EXAMS: CPT CODE: [id number] XR CHEST 1 V 96610 <Continued> Orig Print D/T: S: 10/19/2019 (1915) PAGE 2 Signed Report ECG 12 [id number] 07:44:17* Test Item Value Reference Range Interpretation Comments Ventricular rate (test code = 253) 90 Atrial rate (test code = 255) 90 MT interval (test code = 266) 158 QRSD interval (test code = 260) 94 QT interval (test code = 264) 398 QTC interval (test code = 265) 486 P axis 1 (test code = 267) 51 QRS axis 1 (test code = 268) -24 T wave axis (test code = 270) 45 EKG impression (test code = 273) Normal sinus rhythm-P ossible Anterolateral infarct (cited on or before 26-SEP-2019)-Abnormal ECG Left anterior fascicular block-In automated comparison with ECG of 26-SEP-2019 21:07,-No significant amador ge was found-Incomplete right bundle branch block- Kg OzunaistCOVID-19 qualitative [id number] 17:59:40* Test Item Value Reference Range Interpretation Comments Interpretation (test code = 8637172) Negative results do not preclude 2019-nCoV infection and should not be used as the sole basis for treatment or other patient management decisions. Negative results must be combined with clinical observations, patient history, and epidemiological information. COVID-19 qualitative PCR result (test code = 57754-6) Not-Detect ed Not-Detected COVID-19 qualitative PCR (test code = 7070) See link below for P DF Lab Report Kg OzunaistECG 12 [id number] 17:44:55Interface, External Ris In - 09/22/2019 5:45 PM CDTVentricular Rate 79 BPMAtrial Rate 79 BPMP-R Interval 158 msQRS Duration 94 msQ-T Interval 394 msQTC Calculation(Bazett) 451 msP Widener 43 degreesR Widener 3 degreesT Widener 34 degreesNormal sinus rhythmIncomplete right bundle branch blockBorderline ECGNo previous ECGs availableConfirmed by Guzman Mares ([id number]) on 09/22/2019 5:44:51 [facility] Basic metabolic [id number] 15:08:15* Test Item Value Reference Range Interpretation Comments Sodium (test code = 2951-2) 137 135- 148 mEq/L Potassium (test code = 2823-3) 4.0 3.5- 5.0 mEq/L Chloride (test code = 2075-0) 101 99- 109 mEq/L CO2 (test code = 2027-) 21 24- 31 mEq/L L Anion gap (test code = 48230-7) 15@ANIO 7- 15 mEq/L BUN (test code = 3094-0) 7 mg/dL 8-24 L Creatinine (test code = 2160-0) 0.80 mg/dL 0.7-1.2 Glucose (test code = 2345-7) 119 mg/dL 65-99 H Calcium (test code = 64242-5) 9.5 mg/dL 8.6-10.6 Lab Interpretation (test code = 97777-7) [facility]normal [facility] (Na, K+, Cl, CO2, Glu, Ca, BUN, Cr) 2019-08-29 11:59:00* Test Item Value Reference Range Interpretation Comments Sodium (test code = 2951-2) 141 meq/L 135-148 Potassium (test code = 2823-3) 3.5 meq/L 3.6-5.5 L Chloride (test code = 2075-0) 107 meq/L 98-106 H CO2 (test code = 2027-) 22 meq/L 20-29 BUN (test code = 3094-0) 8 mg/dL 10-26 L Creatinine (test code = 2160-0) 0.82 mg/dL 0.5-1.2 Glucose (test code = 2345-7) 101 mg/dL 70-110 Calcium (test code = 72490-4) 9.2 mg/dL 8.5-10.5 EGFR (test code = 05192-4) 96 mL/min/1.73 sq m ESTIMATED GFR IS NOT ACCURATE CREATININE CLEARANCE IN PREDICTING GLOMERULAR FILTRATION RATE. ESTIMATED GFR IS NOT APPLICABLE FOR DIALYSIS PATIENTS. VARSHA (test code = VARSHA) Sizing Sprayer ID - [id number] Lab Interpretation (test code = 89310-4) [facility] [id number] 11:59:00* Test Item Value Reference Range Interpretation Comments SODIUM (BEAKER) (test code = 381) 141 meq/L 135-148 POTASSIUM (BEAKER) (test code = 379) 3.5 meq/L 3.6-5.5 L CHLORIDE (BEAKER) (test code = 382) 107 meq/L 98-106 H CO2 (BEAKER) (test code = 355) 22 meq/L 20-29 BLOOD UREA NITROGEN (BEAKER) (test code = 354) 8 mg/dL 10-26 L CREATININE (BEAKER) (test code = 358) 0.82 mg/dL 0.50-1.20 GLUCOSE RANDOM (BEAKER) (test code = 652) 101 mg/dL 70-110 CALCIUM (BEAKER) (test code = 697) 9.2 mg/dL 8.5-10.5 EGFR (BEAKER) (test code = 1092) 96 mL/min/1.73 sq m ESTIMATED GFR IS NOT ACCURATE CREATININE CLEARANCE IN PREDICTING GLOMERULAR FILTRATION RATE. ESTIMATED GFR IS NOT APPLICABLE FOR DIALYSIS PATIENTS. Sizing Sprayer ID - [id number] with platelet count + automated [id number] 11:47:00 * Test Item Value Reference Range Interpretation Comments WBC (test code = 6690-2) 5.5 4.0- 10.0 K/L RBC (test code = 789-8) 4.11 4.20- 5.80 M/L L MCHC (test code = 786-4) 34.9 32.0- 36.0 GM/DL L Hematocrit (test code = 4544-3) 37.0 % 36-50 MCV (test code = 787-2) 90.0 fL 82-99 MCH (test code = 785-6) 31.4 pg 27-33 RDW (test code = 788-0) 14.6 % 12-15 Platelets (test code = 777-3) 188 150- 430 K/CU MM MPV (test code = 33427-9) 9.2 fL 6-11.5 nRBC (test code = 413) 0 0- 0 /100 WBC % Neutros (test code = 429) 60 % % Lymphs (test code = 430) 24 % % Monos (test code = 431) 8 % % Eos (test code = 432) 6 % % Baso (test code = 437) 1 % # Neutros (test code = 670) 3.30 1.80- 8.00 K/L # Lymphs (test code = 414) 1.33 1.48- 4.50 K/L L # Monos (test code = 415) 0.42 0.00- 1.30 K/L # Eos (test code = 416) 0.31 0.00- 0.50 K/L # Baso (test code = 417) 0.03 0.00- 0.20 K/L Immature Granulocytes-Relative (test code = 2801) 2 % 0-0 H Lab Interpretation (test code = 63411-9) Abnormal [facility] W/PLT COUNT & AUTO [id number] 11:47:00* Test Item Value Reference Range Interpretation Comments WHITE BLOOD CELL COUNT (BEAKER) (test code = 775) 5.5 K/ L 4.0- 10.0 RED BLOOD CELL COUNT (BEAKER) (test code = 761) 4.11 M/ L 4.20-5 .80 L HEMOGLOBIN (BEAKER) (test code = 410) 12.9 GM/DL 13.0-16.8 L HEMATOCRIT (BEAKER) (test code = 411) 37.0 % 36.0-50.0 MEAN CORPUSCULAR VOLUME (BEAKER) (test code = 753) 90.0 fL 82. 0-99.0 MEAN CORPUSCULAR HEMOGLOBIN (BEAKER) (test code = 751) 31.4 pg 27.0-33.0 MEAN CORPUSCULAR HEMOGLOBIN CONC (BEAKER) (test code = 752) 34.9 GM/DL 32.0-36.0 RED CELL DISTRIBUTION WIDTH (BEAKER) (test code = 412) 14.6 % 12.0-15.0 PLATELET COUNT (BEAKER) (test code = 756) 188 K/CU MM 150-430 MEAN PLATELET VOLUME (BEAKER) (test code = 754) 9.2 fL 6.0-11 .5 NUCLEATED RED BLOOD CELLS (BEAKER) (test code = 413) 0 /100 WBC 0 -0 NEUTROPHILS RELATIVE PERCENT (BEAKER) (test code = 429) 60 % LYMPHOCYTES RELATIVE PERCENT (BEAKER) (test code = 430) 24 % MONOCYTES RELATIVE PERCENT (BEAKER) (test code = 431) 8 % EOSINOPHILS RELATIVE PERCENT (BEAKER) (test code = 432) 6 % BASOPHILS RELATIVE PERCENT (BEAKER) (test code = 437) 1 % NEUTROPHILS ABSOLUTE COUNT (BEAKER) (test code = 670) 3.30 K/ L 1.80-8.00 LYMPHOCYTES ABSOLUTE COUNT (BEAKER) (test code = 414) 1.33 K/ L 1.48-4.50 L MONOCYTES ABSOLUTE COUNT (BEAKER) (test code = 415) 0.42 K/ L 0. 00-1.30 EOSINOPHILS ABSOLUTE COUNT (BEAKER) (test code = 416) 0.31 K/ L 0.00-0.50 BASOPHILS ABSOLUTE COUNT (BEAKER) (test code = 417) 0.03 K/ L 0. 00-0.20 IMMATURE GRANULOCYTES-RELATIVE PERCENT (BEAKER) (test code = 2801) 2 % 0-0 H URINALYSIS [id number] 13:40:00* Test Item Value Reference Range Interpretation Comments UA COLOR (test code = COLU) STRAW UA APPEARANCE (test code = APPU) CLEAR UA GLUCOSE DIPSTICK (test code = DGLUU) NORMAL mg/dl NORMAL UA BILIRUBIN DIPSTICK (test code = BILU) NEGATIVE mg/dL NEGATIVE UA KETONE DIPSTICK (test code = KETU) NEGATIVE mg/dl NEGATIVE UA SPECIFIC GRAVITY (test code = SGU) 1.010 1.000-1.030 UA BLOOD DIPSTICK (test code = GONSALO) NEGATIVE Homer/micL NEGATIVE UA PH DIPSTICK (test code = MARISELA) 6.0 5.0-9.0 UA PROTEIN DIPSTICK (test code = PROU) NEGATIVE mg/dl NEGATIVE UA UROBILINIOGEN DIPSTICK (test code = URO) NORMAL mg/dl NORMAL UA NITRITE DIPSTICK (test code = COURT) NEGATIVE NEGATIVE UA LEUKOCYTE ESTERASE DIPSTICK (test code = LEUU) NEGATIVE Vlad/micL NEGATIVE UA WBC (test code = WBCU) NONE SEEN WBC/HPF NONE UA RBC (test code = RBCU) NONE SEEN RBC/HPF 0-3 UA EPITHELIAL CELLS (test code = EPIU) 0-3 EPI/HPF 0-3 UA BACTERIA (test code = BACU) TRACE NONE URINALYSIS [id number] 13:28:00* Test Item Value Reference Range Interpretation Comments UA COLOR (test code = COLU) UA APPEARANCE (test code = APPU) UA GLUCOSE DIPSTICK (test code = DGLUU) NORMAL mg/dl NORMAL UA BILIRUBIN DIPSTICK (test code = BILU) NEGATIVE mg/dL NEGATIVE UA KETONE DIPSTICK (test code = KETU) NEGATIVE mg/dl NEGATIVE UA SPECIFIC GRAVITY (test code = SGU) 1.010 1.000-1.030 UA BLOOD DIPSTICK (test code = GONSALO) NEGATIVE Homer/micL NEGATIVE UA PH DIPSTICK (test code = MARISELA) 6.0 5.0-9.0 UA PROTEIN DIPSTICK (test code = PROU) NEGATIVE mg/dl NEGATIVE UA UROBILINIOGEN DIPSTICK (test code = URO) NORMAL mg/dl NORMAL UA NITRITE DIPSTICK (test code = COURT) NEGATIVE NEGATIVE UA LEUKOCYTE ESTERASE DIPSTICK (test code = LEUU) NEGATIVE Vlad/micL NEGATIVE UA WBC (test code = WBCU) WBC/HPF NONE UA RBC (test code = RBCU) RBC/HPF 0-3 UA EPITHELIAL CELLS (test code = EPIU) EPI/HPF 0-3 UA BACTERIA (test code = BACU) NONE - CT HEAD/BRAIN W/O [id number] 11:47:00 FAX: Renay Escudero MD [phone] [place]: St: REG Name: FREDERIC ZHONG [facility] : 2 Age/S: 59/M [address] [facility] Unit: [id number] Loc: [address] Phys: [place] [id number] Acct: [id number] Dis Date: Status: REG ER PHONE #: [phone] Exam Date: 08/27/2019 1145 FAX #: [phone] Reason: Headache EXAMS: CPT CODE: [id number] CT HEAD/BRAIN W/O CONT 30524 CT HEAD WITHOUT CONTRAST CLINICAL HISTORY: Headache , hypertension COMPARISON: July 27, 2016 TECHNIQUE: 5 mm axial images of the brain were obtained without co ntrast. Coronal and sagittal reformats were obtained. One or more of the following dose reduction techniques were used: Automated exposure control, adjustment of the mA and/or kV according to patient size, and/or utilizat ion of iterative reconstruction technique. FINDING S: No acute intracranial hemorrhage or abnormal extra-axial fluid collecti on is identified. The xiao-white matter differentiation is well-preserved without evidence of edema or acute infarct. There is no hydrocephalus, m idline shift, or mass effect. The cranial vault and skull base are intact. The paranasal sinuses and mastoid air cells are pneumatized and w ell-aerated. IMPRESSI ON: No acute intracranial abnormality Location: R16 at 1147 Reported and signed by: Mainor Ervin M.D. CC: Renay rojo MD Technologist: KALYAN VILLALOBOS Trnscrd Dt/Tm: 08/27/2019 (7677) t.JUAN [id number] Orig Print D/T: S: 08/27/2019 (3530 PAGE 1 Signed Report BASIC METABOLIC [id number] 11:38:00* Test Item Value Reference Range Interpretation Comments SODIUM (test code = NA) 141 mmol/l 134.0-147.0 N POTASSIUM (test code = K) 3.7 mmol/L 3.6-5.2 N CHLORIDE (test code = CL) 106 mmol/l 98.0-107.0 N CARBON DIOXIDE (test code = CO2) 26.1 mmol/l 21.0-33.0 N ANION GAP (test code = GAP) 12.6 0-20 N GLUCOSE (test code = GLU) 95 mg/dl 70.0-110.0 N BLOOD UREA NITROGEN (test code = BUN) 10 mg/dl 7.0-18.0 N CREATININE (test code = CREAT) 0.94 mg/dL 0.60-1.30 N GFR NON BLACK (test code = GFRNONBLACK) 87 mL/min 90-95 L GFR BLACK (test code = GFRBLACK) 106 mL/min 109-115 L CALCIUM (test code = CA) 8.6 mg/dl 8.0-10.5 N HEPATIC FUNCTION PANEL [id number] 11:38:00* Test Item Value Reference Range Interpretation Comments TOTAL PROTEIN (test code = PROT) 6.8 gm/dL 6.4-8.2 N ALBUMIN (test code = ALB) 3.4 gm/dl 3.2-4.7 N BILIRUBIN TOTAL (test code = BILT) 0.3 mg/dl 0.0-1.0 N BILIRUBIN DIRECT (test code = BILD) 0 mg/dl 0.0-0.3 N SGOT/AST (test code = AST) 16 Units/L 15.0-37.0 N SGPT/ALT (test code = ALT) 29 Units/L 12.0-78.0 N ALKALINE PHOSPHATASE TOTAL (test code = ALKP) 76 Units/L 50.0-136 .0 N [id number] 11:38:00* Test Item Value Reference Range Interpretation Comments LIPASE (test code = LIP) 77 Units/L 65.0-230.0 N [id number] 11:38:00* Test Item Value Reference Range Interpretation Comments TROPONIN-I (test code = TROPI) <0.02 NG/ML 0.00-0.06 N REFERENCE RANGE TROPONIN I HEALTHY INDIVIDUALS: <0.06 ng/mL R/O ISCHEMIA: 0.07 - 0.60 ng/mL CUT-OFF RANGE FOR AMI: 0.60 - 1.5 ng/mL BASIC METABOLIC [id number] 11:28:00* Test Item Value Reference Range Interpretation Comments SODIUM (test code = NA) 141 mmol/l 134.0-147.0 N POTASSIUM (test code = K) 3.7 mmol/L 3.6-5.2 N CHLORIDE (test code = CL) 106 mmol/l 98.0-107.0 N CARBON DIOXIDE (test code = CO2) 26.1 mmol/l 21.0-33.0 N ANION GAP (test code = GAP) 12.6 0-20 N GLUCOSE (test code = GLU) mg/dl 70.0-110.0 BLOOD UREA NITROGEN (test code = BUN) mg/dl 7.0-18.0 CREATININE (test code = CREAT) mg/dL 0.60-1.30 GFR NON BLACK (test code = GFRNONBLACK) mL/min 90-95 GFR BLACK (test code = GFRBLACK) mL/min 109-115 CALCIUM (test code = CA) mg/dl 8.0-10.5 HEPATIC FUNCTION PANEL [id number] 11:28:00* Test Item Value Reference Range Interpretation Comments TOTAL PROTEIN (test code = PROT) gm/dL 6.4-8.2 ALBUMIN (test code = ALB) gm/dl 3.2-4.7 BILIRUBIN TOTAL (test code = BILT) mg/dl 0.0-1.0 BILIRUBIN DIRECT (test code = BILD) mg/dl 0.0-0.3 SGOT/AST (test code = AST) Units/L 15.0-37.0 SGPT/ALT (test code = ALT) Units/L 12.0-78.0 ALKALINE PHOSPHATASE TOTAL (test code = ALKP) Units/L 50.0-136 .0 [id number] 11:28:00* Test Item Value Reference Range Interpretation Comments LIPASE (test code = LIP) Units/L 65.0-230.0 [id number] 11:28:00* Test Item Value Reference Range Interpretation Comments TROPONIN-I (test code = TROPI) NG/ML 0.00-0.06 CBC W/AUTO [id number] 11:22:00* Test Item Value Reference Range Interpretation Comments WHITE BLOOD CELL (test code = WBC) 5.5 K/mm3 4.5-11.0 N RED BLOOD CELL (test code = RBC) 4.04 M/mm3 4.40-5.90 L HEMOGLOBIN (test code = HGB) 12.7 gm/dL 13.0-17.0 L HEMATOCRIT (test code = HCT) 37.0 % 36.0-48.0 N MEAN CELL VOLUME (test code = MCV) 91.6 UM3 80.0-94.0 N MEAN CELL HGB (test code = MCH) 31.4 UUG 25.5-32.5 N MEAN CELL HGB CONCETRATION (test code = MCHC) 34.3 gm/dL 29.0-35. 5 N RED CELL DISTRIBUTION WIDTH (test code = RDW) 14.6 % 11.5-15. 0 N RED CELL DISTRIBUTION WIDTH SD (test code = RDW-SD) 48.8 fL 34 .8-50.2 N PLATELET COUNT (test code = PLT) 189 K/mm3 150-400 N MEAN PLATELET VOLUME (test code = MPV) 9.2 fl 7.4-10.4 N NEUTROPHIL % (test code = NT%) 58.7 % 49.0-76.0 N IMMATURE GRANULOCYTE % (test code = IG%) 2.4 % 0.0-0.4 H LYMPHOCYTE % (test code = LY%) 25.2 % 23.0-38.0 N MONOCYTE % (test code = MO%) 8.4 % 1.0-10.0 N EOSINOPHIL % (test code = EO%) 4.4 % 1.0-5.0 N BASOPHIL % (test code = BA%) 0.9 % 0.0-1.0 N NEUTROPHIL # (test code = NT#) 3.2 K/mm3 2.4-6.3 N IMMATURE GRANULOCYTE # (test code = IG#) 0.13 x10 3/uL 0.00-0.07 H LYMPHOCYTE # (test code = LY#) 1.4 K/mm3 1.2-4.0 N MONOCYTE # (test code = MO#) 0.5 K/mm3 0.0-0.6 N EOSINOPHIL # (test code = EO#) 0.2 K/MM3 0.0-0.7 N BASOPHIL # (test code = BA#) 0.1 K/mm3 0.0-0.2 N PROTHROMBIN [id number] 11:21:00* Test Item Value Reference Range Interpretation Comments PROTHROMBIN TIME PATIENT (test code = PTP) 11.0 SECONDS 9.9-12.8 N INTERNATIONAL NORMAL RATIO (test code = INR) 0.9 0.89-1.14 N THE INR IS TO BE USED ONLY FOR MONITORING ORAL ANTICOAGULANTTHERAPY. THE FOLLOWING ARE SUGGESTED RANGES FROM THEAMERICAN COLLEGE OF CHEST PHYSICIANS:INDICATION INR VALUEPROPHYLAXIS OF VENOUS THROMBOSIS (ORTHOPEDIC SURGERY) 2.0 - 3.0PROPHYLAXIS OF VENOUS THROMBOSIS (OTHER THAN HIGH-RISK SURGERY) 2.0 - 3.0TREATMENT OF DEEP VEIN THROMBOSIS OR PULMONARY EMBOLISM 2.0 - 3.0PREVENTION OF SYSTEMIC EMBOLISM TISSUE HEART VALVES 2.0 - 3.0 ACUTE MYOCARDIAL INFARCTION (TO PREVENT SYSTEMIC EMBOLISM) 2.0 - 3.0 ACUTE MYOCARDIAL INFARCTION (TO PREVENT RECURRENT INFARCT) 2.5 - 3.0 VALVULAR HEART DISEASE 2.0 - 3.0 ATRIAL FIBRILATION 2.0 - 3.0BILEAFLET MECHANICAL VALVE IN AORTIC POSITION 2.0 - 3.0MECHANICAL PROSTHETIC VALVES (HIGH RISK) 2.5 - 3.5PRESENCE OF LUPUS ANTICOAGULANT OR ANTIPHOSPHOLIPID ANTIBODIES 2.5 - 3.5 Is patient on anticoagulants? NTHROMBOPLASTIN TIME [id number] 11:21:00* Test Item Value Reference Range Interpretation Comments THROMBOPLASTIN TIME PARTIAL (test code = PTT) 25.80 SECONDS 25.86-3 6.07 L [facility] Therapeutic Range - APTT of 55.8-85.4 secondscorrelates with plasma heparin concentration of 0.2-0.4 u/mL New range effective - 05/21/2016 Is patient on anticoagulants? NCT, SPINE, LUMBAR, WO [id number] 15:46:00 Reason for exam:->NECK PAINpt complains of neck and back pain that radiates down his arms for the past week, also complains of seeing some blood in his colostomy bag for the past 3 daysReason for exam:->fallWhat is the patient's sedation requirement?->No SedationFINAL REPORT CT lumbar spine without contrast HISTORY: [...] in the lumbar spine. Signed: Quique Johnson MDReport Verified Date/Time: 08/12/2019 15:46:11 Reading Location: [facility] spine lumbar without IV [id number] 15:46:00Interface, External Ris In - 08/12/2019 3:[address] lumbar spine without contrast HISTORY: [...] spine. There are postoperative changes of discectomy, altagracia ctomy, and posterior fusion which involve levels of L4-S1. No significant interv al change from the previous examination. No osseous destructive lesion is appare nt. The unenhanced paraspinal soft tissues appear grossly unremarkable. IMPRESSI ON: No acute CT findings in the lumbar spine. Signed: Quique Johnson MDReport V erified Date/Time: 08/12/2019 15:46:11 Reading Location: [facility] signed by: QUIQUE JOHNSON MD on 08/12/2019 03:46 PM [facility] WITHOUT [id number] 15:25:00Reason for exam:-> NECK PAINpt complains of neck and back pain that radiates down his arms for the past week, also complains of seeing some blood in his colostomy bag for the past 3 daysReason for exam:->fallWhat is the patient's sedation requirement?->No SedationFINAL REPORT CT, BRAIN, WITHOUT CONTRAST, CT, SPINE, CERVICAL, WO CONTRAST INDICATION: Head trauma, mod-severeNECK PAINfall TECHNIQUE: Contiguous noncontrast axial images of the head and cervical spine are obtained. Computer reformatted coronal and sagittal images are also provided. Axial images are available in both bone and soft tissue algorithm. DOSE REDUCTION: Dose modulation, iterative reconstruction, and/or weight-based adjustment of the mA/kV was utilized to reduce the radiation dose to as low as reasonably achievable. COMPARISON: CT head 08/24/2003 FINDINGS: HEAD:Intracranial: Exam is degraded by streak artifact arising from the skull. No convincing intracranial hemorrhage or abnormal extra-axial collection. No evidence of acute territorial infarct. No mass effect. No hydrocephalus. Osseous structures: No fracture. No suspicious lesion. Paranasal sinuses and mastoid air cells: No evidence of sinusitis. Mastoids are clear. Orbital contents: Globes are intact. CERVICAL SPINE:Alignment: Rightward curvature of the cervical spine. Straightening and mild reversal of cervical lordosis. C1 and C2 lateral masses are congruent. Vertebrae: No acute fracture. The C5 and C6 vertebral bodies are partially fused. No aggressive osseous lesion. Spondylosis: No high- grade canal or foraminal stenosis. Soft tissues: No prevertebral soft tissue swelling. Visualized lung apices are clear. IMPRESSION: 1.No acute intracranial hemorrhage.2.No cervical fracture or traumatic malalignment. Signed: Alanis Dockeryort Verified Date/Time: 08/12/2019 15:25:21 , SPINE, CERVICAL, WO [id number] 15:25:00Reason for exam:->NECK PAINpt complains of neck and back pain that radiates down his arms for the past week, also complains of seeing some blood in his colostomy bag for the past 3 daysWhat is the patient's sedation requirement?->No SedationFINAL REPORT CT, BRAIN, WITHOUT CONTRAST, CT, SPINE, CERVICAL, WO CONTRAST INDICATION: Head trauma, mod- severeNECK PAINfall TECHNIQUE: Contiguous noncontrast axial images of the head and cervical spine are obtained. Computer reformatted coronal and sagittal images are also provided. Axial images are available in both bone and soft tissue algorithm. DOSE REDUCTION: Dose modulation, iterative reconstruction, and/or weight-based adjustment of the mA/kV was utilized to reduce the radiation dose to as low as reasonably achievable. COMPARISON: CT head 08/24/2003 FINDINGS: HEAD:Intracranial: Exam is degraded by streak artifact arising from the skull. No convincing intracranial hemorrhage or abnormal extra-axial collection. No evidence of acute territorial infarct. No mass effect. No hydrocephalus. Osseous structures: No fracture. No suspicious lesion. Paranasal sinuses and mastoid air cells: No evidence of sinusitis. Mastoids are clear. Orbital contents: Globes are intact. CERVICAL SPINE:Alignment: Rightward curvature of the cervical spine. Straightening and mild reversal of cervical lordosis. C1 and C2 lateral masses are congruent. Vertebrae: No acute fracture. The C5 and C6 vertebral bodies are partially fused. No aggressive osseous lesion. Spondylosis: No high- grade canal or foraminal stenosis. Soft tissues: No prevertebral soft tissue swelling. Visualized lung apices are clear. IMPRESSION: 1.No acute intracranial hemorrhage.2.No cervical fracture or traumatic malalignment. Signed: Alanis Dockery Verified Date/Time: 08/12/2019 15:25:21 brain without IV [id number] 15:25:00Interface, External Ris In - 08/12/2019 3:[address], BRAIN, WITHOUT CONTRAST, CT, SPINE, CERVICAL, WO CONTRAST INDICATION: Head trauma, mod-severeNECK PAINfall TECHNIQUE: Contiguous noncontrast axial images of the head and cervical spine are obtained. Computer reformatted coronal and sagittal images are also provided. Axial images are available in both bone and soft tissue algorithm. DOSE REDUCTION: Dose modulation, iterative reconstruction, and/or weight-based adjustment of the mA/kV was utilized to reduce the radiation dose to as low as reasonably achievable. COMPARISON: CT head 08/24/2003 FINDINGS: HEAD:Intracranial: Exam is degraded by streak artifact arising from the skull. No convincing intracranial hemorrhage or abnormal extra-axial collection. No evidence of acute territorial infarct. No mass effect. No hydrocephalus. Osseous structures: No fracture. No suspicious lesion. Paranasal sinuses and mastoid air cells: No evidence of sinusitis. Mastoids are clear. Orbital contents: Globes are intact. CERVICAL SPINE:Alignment: Rightward curvature of the cervical sp ine. Straightening and mild reversal of cervical lordosis. C1 and C2 lateral mas ses are congruent. Vertebrae: No acute fracture. The C5 and C6 vertebral bodies are partially fused. No aggressive osseous lesion. Spondylosis: No high-grade ca nal or foraminal stenosis. Soft tissues: No prevertebral soft tissue swelling. V isualized lung apices are clear. IMPRESSION: 1.No acute intracranial hemorrhage. 2.No cervical fracture or traumatic malalignment. Signed: Alanis Dockery Verified Date/Time: 08/12/2019 15:25:21 [facility] without IV [id number] 15:25:00Interface, External Ris In - 08/12/2019 3:[address], BRAIN, WITHOUT CONTRAST, CT, SPINE, CERVICAL, WO CONTRAST INDICATION: Head trauma, mod- severeNECK PAINfall TECHNIQUE: Contiguous noncontrast axial images of the head and cervical spine are obtained. Computer reformatted coronal and sagittal images are also provided. Axial images are available in both bone and soft tissue algorithm. DOSE REDUCTION: Dose modulation, iterative reconstruction, and/or weight-based adjustment of the mA/kV was utilized to reduce the radiation dose to as low as reasonably achievable. COMPARISON: CT head 08/24/2003 FINDINGS: HEAD:Intracranial: Exam is degraded by streak artifact arising from the skull. No convincing intracranial hemorrhage or abnormal extra-axial collection. No evidence of acute territorial infarct. No mass effect. No hydrocephalus. Osseous structures: No fracture. No suspicious lesion. Paranasal sinuses and mastoid air cells: No evidence of sinusitis. Mastoids are clear. Orbital contents: Globes are intact. CERVICAL SPINE:Alignment: Rightward curvature of the cervical sp ine. Straightening and mild reversal of cervical lordosis. C1 and C2 lateral mas ses are congruent. Vertebrae: No acute fracture. The C5 and C6 vertebral bodies are partially fused. No aggressive osseous lesion. Spondylosis: No high-grade ca nal or foraminal stenosis. Soft tissues: No prevertebral soft tissue swelling. V isualized lung apices are clear. IMPRESSION: 1.No acute intracranial hemorrhage. 2.No cervical fracture or traumatic malalignment. Signed: Alanis Dockery Verified Date/Time: 08/12/2019 15:25:21 [facility] HospitalCBC W/PLT COUNT & AUTO [id number] 14:59:00* Test Item Value Reference Range Interpretation Comments WHITE BLOOD CELL COUNT (BEAKER) (test code = 775) 11.8 K/ L 4.0- 10.0 H RED BLOOD CELL COUNT (BEAKER) (test code = 761) 4.86 M/ L 4.20-5 .80 HEMOGLOBIN (BEAKER) (test code = 410) 15.0 GM/DL 13.0-16.8 HEMATOCRIT (BEAKER) (test code = 411) 43.6 % 36.0-50.0 MEAN CORPUSCULAR VOLUME (BEAKER) (test code = 753) 89.7 fL 82. 0-99.0 MEAN CORPUSCULAR HEMOGLOBIN (BEAKER) (test code = 751) 30.9 pg 27.0-33.0 MEAN CORPUSCULAR HEMOGLOBIN CONC (BEAKER) (test code = 752) 34.4 GM/DL 32.0-36.0 RED CELL DISTRIBUTION WIDTH (BEAKER) (test code = 412) 14.6 % 12.0-15.0 PLATELET COUNT (BEAKER) (test code = 756) 279 K/CU MM 150-430 MEAN PLATELET VOLUME (BEAKER) (test code = 754) 9.2 fL 6.0-11 .5 NUCLEATED RED BLOOD CELLS (BEAKER) (test code = 413) 0 /100 WBC 0 -0 NEUTROPHILS RELATIVE PERCENT (BEAKER) (test code = 429) 72 % LYMPHOCYTES RELATIVE PERCENT (BEAKER) (test code = 430) 17 % MONOCYTES RELATIVE PERCENT (BEAKER) (test code = 431) 9 % EOSINOPHILS RELATIVE PERCENT (BEAKER) (test code = 432) 0 % BASOPHILS RELATIVE PERCENT (BEAKER) (test code = 437) 0 % NEUTROPHILS ABSOLUTE COUNT (BEAKER) (test code = 670) 8.49 K/ L 1.80-8.00 H LYMPHOCYTES ABSOLUTE COUNT (BEAKER) (test code = 414) 2.01 K/ L 1.48-4.50 MONOCYTES ABSOLUTE COUNT (BEAKER) (test code = 415) 1.04 K/ L 0. 00-1.30 EOSINOPHILS ABSOLUTE COUNT (BEAKER) (test code = 416) 0.03 K/ L 0.00-0.50 BASOPHILS ABSOLUTE COUNT (BEAKER) (test code = 417) 0.04 K/ L 0. 00-0.20 IMMATURE GRANULOCYTES-RELATIVE PERCENT (BEAKER) (test code = 2801) 2 % 0-0 H BASIC METABOLIC [id number] 14:56:00* Test Item Value Reference Range Interpretation Comments SODIUM (BEAKER) (test code = 381) 137 meq/L 135-148 POTASSIUM (BEAKER) (test code = 379) 4.0 meq/L 3.6-5.5 CHLORIDE (BEAKER) (test code = 382) 100 meq/L 98-106 CO2 (BEAKER) (test code = 355) 24 meq/L 20-29 BLOOD UREA NITROGEN (BEAKER) (test code = 354) 11 mg/dL 10-26 CREATININE (BEAKER) (test code = 358) 1.00 mg/dL 0.50-1.20 GLUCOSE RANDOM (BEAKER) (test code = 652) 220 mg/dL 70-110 H CALCIUM (BEAKER) (test code = 697) 9.6 mg/dL 8.5-10.5 EGFR (BEAKER) (test code = 1092) 77 mL/min/1.73 sq m ESTIMATED GFR IS NOT ACCURATE CREATININE CLEARANCE IN PREDICTING GLOMERULAR FILTRATION RATE. ESTIMATED GFR IS NOT APPLICABLE FOR DIALYSIS PATIENTS. Sizing Sprayer ID - KAREN- XR L-SPINE 2/3 [id number] 17:23:00 FAX: Lorena Maynard [phone] [place]: St: REG Name: FREDERIC TALLEY Radames [facility] : [birth year] Age/S: 58/M [address] [place] [address] Unit #: [id number] Loc: [place] [address] Phys: Lorena Rodriguez Acct: [id number] Dis Date: Status: REG ER PHONE #: [phone] Exam Date: 06/13/2019 1717 FAX #: [phone] Reason: fall, low back pain EXAMS: CPT CODE: [id number] XR L-SPINE 2/3 VIEWS 32168 Clinical Indication: Fall, low back pain. Comparison: 02/03/2019. Impression: Lumbar spine, 3 views. Stable L4-S1 fusion. Vertebral body and disc height are maint ained. No acute fracture or subluxation. Abdominal wall hernia mesh ov erlies left pelvis. SL: [id number] at 1723 Reported and signed by: Camelia Moya M.D. CC: Lorena MATUTE Technologist: RT Mehdi(R) Trnscrd Date/Time/By: 06/13/2019 (1722) : By: [email or web address] Orig Print D/T: S: 06/13/2019 (1725) PAGE 1 Signed Report Urinalysis w/Microscopic 2019-05-04 17:12:00* Test Item Value Reference Range Interpretation Comments Color, UA (test code = 5778-6) Yellow Clarity, UA (test code = 5767-9) Clear Specific [place], UA (test code = 5811-5) <=1.005 1.001-1.035 pH, UA (test code = 5803-2) 6.0 5.0-8.0 Protein, UA (test code = 76999-9) Negative Negative Glucose, UA (test code = 365) Negative Negative Ketones, UA (test code = 2514-8) Negative Negative Bilirubin, UA (test code = 15736-7) Negative Negative Blood, UA (test code = 59673-5) Negative Negative Nitrite, UA (test code = 5802-4) Negative Negative Leukocytes, UA (test code = 5799-2) Negative Negative Urobilinogen, UA (test code = 21666-9) 0.2 mg/dL 0.2-1 Bacteria, UA (test code = 37592-7) None Seen RBC, UA (test code = 799-7) None Seen /HPF WBC, UA (test code = 79384-7) None Seen /HPF SQUAMOUS EPITHELIAL (test code = 98548-9) <5 /HPF Specimen Source (test code = 2795) [facility] Hospital[facility]IN[facility] W/ [id number] 17:12:00* Test Item Value Reference Range Interpretation Comments COLOR (BEAKER) (test code = 470) Yellow CLARITY (BEAKER) (test code = 469) Clear SPECIFIC GRAVITY UA (BEAKER) (test code = 468) <= 1.001-1 .035 PH UA (BEAKER) (test code = 467) 6.0 5.0-8.0 PROTEIN UA (BEAKER) (test code = 464) Negative Negative GLUCOSE UA (BEAKER) (test code = 365) Negative Negative KETONES UA (BEAKER) (test code = 371) Negative Negative BILIRUBIN UA (BEAKER) (test code = 462) Negative Negative BLOOD UA (BEAKER) (test code = 461) Negative Negative NITRITE UA (BEAKER) (test code = 465) Negative Negative LEUKOCYTE ESTERASE UA (BEAKER) (test code = 466) Negative Negat danay UROBILINOGEN UA (BEAKER) (test code = 463) 0.2 mg/dL 0.2-1.0 BACTERIA (BEAKER) (test code = 517) None Seen RBC UA-MANUAL (BEAKER) (test code = 1659) None Seen /HPF WBC UA-MANUAL (BEAKER) (test code = 1661) None Seen /HPF SQUAMOUS EPITHELIAL MANUAL (BEAKER) (test code = 1663) <5 /HPF SOURCE(BEAKER) (test code = 2795) MRI Lumbar Spine W Wo [id number] 13:44:31Hm Interface, Radiology Results - 04/30/2019 1:47 PM CSTStudy:MRI LUMBAR SPINE W WO CONTRASTHistory:back pain history of multiple surgeries and post op infection in the past as well as fluid collections.COMPARISON:April 07, 2019TECHNIQUE: Sagittal T1, T2, STIR, axial T1, T2 MR images of the lumbar spine obtained without IV contrast.Postcontrast axial and sagittal T1 MR images also ob tained.FINDINGS:The last functional disc is presumed L5/S1 and the L5 level is m arked on the sagittal T2 image number 9.Stable postoperative changes of posterol ateral fusion from L4 through S1 and interbody fusion at L4-5. There is laminect ada at the level of L5. The lumbar lordosis is maintained. There are no subluxat ions. Vertebral body has within normal limits. No acute marrow signal abnormalit ies are present.L1-2:Mild disc height loss with shallow disc bulge. No canal for aminal stenosis.L2-3:Normal disc height without protrusion. Mild facet arthrosis . No canal stenosis. Mild bilateral foraminal stenosis..L3-4:Normal disc height without protrusion. No canal stenosis. Facet arthrosis with mild left foraminal stenosis.L4-5:Posterior changes of prior interbody fusion. No disc protrusion. M ild facet arthrosis. No canal foraminal stenosis.L5/S1:Mild disc height loss wit h a shallow disc bulge. No thecal sac stenosis. No foraminal stenosis.Paraverteb ral soft tissues have stable postoperative change with tiny amount of fluid in t he laminectomy bed and overlying subcutaneous soft tissues from a tiny seroma. N o abnormal enhancement elsewhere.IMPRESSION:Stable postoperative changes without canal or foraminal stenosis.[id number] MethodistUrine culture 2019-04-30 10:11:24* Test Item Value Reference Range Interpretation Comments Urine culture (test code = 6538741) SEE COMMENT Bacteriuria screen negative. Kg MethodistUrinalysis screen and microscopy, with reflex to culture 2019-04-30 10:11:24* Test Item Value Reference Range Interpretation Comments Specimen site (test code = 1324303) Clean catch Color, UA (test code = 5778-6) Yellow Appearance, UA (test code = 5767-9) Clear Specific gravity, UA (test code = 5811-5) 1.020 1.001-1.035 pH, UA (test code = 5803-2) 5.0 5.0-8.5 Protein, UA (test code = 88642-8) Negative Negative Glucose, UA (test code = 40508-8) Negative Negative Ketones, UA (test code = 2514-8) Negative Negative Bilirubin, UA (test code = 5770-3) Negative Negative Blood, UA (test code = 5794-3) Negative Negative Nitrite, UA (test code = 5802-4) Negative Negative Urobilinogen, UA (test code = 14539-0) Negative <2.0 Leukocyte esterase, UA (test code = 5799-2) Negative Negative Epithelial cells, UA (test code = 5787-7) None seen Few /HPF Round epithelial cells, UA (test code = 33251-2) Few 0- 1 /HPF WBC, UA (test code = 5821-4) 0-5 0- 1 /HPF RBC, UA (test code = 24881-8) 0-5 0- 5 /HPF Bacteria, UA (test code = 28241-4) None seen None seen Yeast, UA (test code = 89941-4) None seen Yeast with pseudohyphae, UA (test code = 79424-5) None seen [place] MethodistLipase [id number] 09:02:46* Test Item Value Reference Range Interpretation Comments Lipase (test code = 3040-3) 19 U/L 13-60 [place] MethodistHepatic function [id number] 09:02:45* Test Item Value Reference Range Interpretation Comments Albumin (test code = 1751-7) 4.6 g/dL 3.5-5 Total bilirubin (test code = 1975-2) 0.2 mg/dL 0-1.2 Bilirubin direct (test code = 1967-7) <0.1 0-0.3 Alkaline phosphatase (test code = 6768-6) 81 U/L 40-129 Protein (test code = 2885-2) 7.9 g/dL 6.3-8.3 Gvmutmr9612.6-7.0 g/dL1 ytcl7438.4-7.6 g/dL7 months-6qzhj068.1-7.3 g/dL1-2 vublf950.6-7.5 g/dL>3 cisfw054.0-8.0 g/wI00-9556187.3-8.3 g/dL ALT (test code = 1742-6) 16 U/L 5-50 AST (test code = 1920-8) 15 U/L 10-50 [place] MethodistCT LUMBAR SP W/O [id number] 19:55:[address] [address]KHNLJGOARR IMAGING REPORTPatient Name: Natividad SUMNER of Service: [id number]: 58 Sex: M Order #: [id number] Room: ERDOB: 1960 X-Ray Number: [id number] Record Number: [id number] Hospital Number: [id number] Physician: SELWYN OLVERAOrdering Physician: OLIVIA OLVERA LUMBAR SPINE:HISTORY: Lower back pain, fallTECHNIQUE: CT axial images of the cervical spine were o btained withsagittal and coronal reformatted images.This CT exam was performed u sing one or more of the following dosereduction techniques: Automated exposure c ontrol, adjustment of the MAand/or KV according to patient size or use of iterat danay reconstructiontechnique.FINDINGS: A posterior fusion spans L4-S1. There are also prior surgicalchanges in the ilium bones bilaterally. There is no evidence of an acutefracture or subluxation. There are mild multilevel discogenic degener ativechanges. There are degenerative changes of the facet joints. There are mild multilevel disc bulges. These findings are better assessed on MRI.There is ather osclerotic calcification of the abdominal aorta.IMPRESSION:No acute fracture or subluxation. A posterior fusion spans L4-S1.Electronically Signed By: Gustavo Coronel M.D., 04/28/2019 7:53 PMLegally authenticated by ALTON CUEVA JR 2019-04-28 19:53:21MRI Lumbar Spine Wo [id number] 15:43:06Hm Interface, Radiology Results - 04/07/2019 3:46 PM CSTEXAMINATION: MRI LUMBAR SPINE WO CONTRASTCLINICAL HISTORY: hx 4 back surgeries c o feeling like there is fluid back there again hx of reported infection hx CA r o cauda equinaCOMPARISON: CT lumbar spine from February 03, 2019.TECHNIQUE: Multiplanar multisequence noncontrast enhanced examination was performed of the Lumbar spin e.FINDINGS:The distal cord ends at the L1 level and is grossly unremarkable. The prior CT exam showed posterior fusion on the left from L4 to the S1 vertebral b patrick and left iliac bone with screws connected by vertical rods. There is posteri or fusion on the right with pedicle screws at L4-L5 connected to a screw extendi ng into the right iliac bone. There is fusion material on the CT exam in the L4- 5 disc. There is a screw hole on both sides of the S1 vertebral body consistent with removal of hardware. There is laminectomy at L5 and removal of the left L5- S1 facet joint region. There is resection of portions of the posterior elements on the left at L4-5. There are degenerative changes of the sacroiliac joints wit h some vacuum density in the right joint space greater than the left joint space and surrounding sclerosis.L5-S1: There is mild disc space narrowing. There is no significant canal stenosis from hypertrophic changes. There is congenital narr owing subarachnoid space. There is a large amount of scar signal intensity in th e left foramen along with osteophytic ridge in the anterior inferior left forame n with some bone density bridging across the left disc on the CT exam. There is good fusion of the right posterior elements on the CT exam. There is no signific ant right foramen stenosis from hypertrophic change. There is complete effacemen t of fat in the left foramen from the scar and bone hypertrophy. There is scar s ignal intensity in the region of laminectomy and the posterior paraspinal soft t issues. There is a small amount of proteinaceous fluid in this area as well magaly uring approximately 3 cm in greatest height by 8 mm in greatest AP dimension by 2.1 cm transverse dimension.L4-5: There is bulge. There is no significant centra l canal stenosis. There are hypertrophic changes with mild foramen narrowing.L3- 4: There is bulge and posterior epidural fat with mild narrowing of the AP dimen ofelia of the central subarachnoid space. There are facet hypertrophic changes and mild to moderate left and mild right inferior foramen stenosis.L2-3: There is g reater posterior disc space narrowing. There is bulge and posterior epidural fat with mild narrowing of the AP dimension of the central subarachnoid space. There are facet hypertrophic changes and mild inferior foramen narrowing.L1-2: There is bulge indenting the subarachnoid space. There is facet hypertrophy. There is no significant central canal stenosis. There is mild foramen stenosis in part c ongenital in nature.The study was not performed for proper imaging of the soft t issue structures in the abdomen and pelvis.IMPRESSION: Postoperative and degener ative changes as described. There is no significant narrowing of the subarachnoi d space to compress the nerve roots. There is asymmetric severe effacement of fa t in the left L5-S1 foramen from scar signal intensity and some bone hypertrophy .Degenerative changes of the sacroiliac joints.[facility] [place] [facility] [place]-[id number] Shinto URINALYSIS [id number] 14:06:00* Test Item Value Reference Range Interpretation Comments UA COLOR (test code = COLU) YELLOW DESCRIPT YELLOW UA APPEARANCE (test code = APPU) CLEAR DESCRIPT CLEAR UA GLUCOSE DIPSTICK (test code = DGLUU) NEGATIVE (0) mg/dL (NEG) 0 UA BILIRUBIN DIPSTICK (test code = BILU) NEGATIVE (0) mg/dL (NEG) 0 UA KETONE DIPSTICK (test code = KETU) 0 (NEG) mg/dL (NEG) 0 UA SPECIFIC GRAVITY (test code = SGU) 1.013 SG 1.001-1.035 UA BLOOD DIPSTICK (test code = GONSALO) NEGATIVE (0) mg/DL (NEG) 0 UA PH DIPSTICK (test code = MARISELA) 5.0 pH UNITS 4.6-8.0 UA PROTEIN DIPSTICK (test code = PROU) NEGATIVE (0) mg/dL <30 (1+) UA UROBILINIOGEN DIPSTICK (test code = URO) NORMAL (0) mg/dL <2.0 ( 1+) UA NITRITE DIPSTICK (test code = COURT) NEGATIVE (0) SCREEN NEG UA LEUKOCYTE ESTERASE DIPSTICK (test code = LEUU) NEGATIVE (0) L euk/mcL (NEG) 0 UA WBC (test code = WBCU) 0-3 #WBC/HPF 0-3 UA RBC (test code = RBCU) NONE #RBC/HPF 0-3 UA MUCUS (test code = MUCU) RARE /LPF NONE URINALYSIS [id number] 14:04:00* Test Item Value Reference Range Interpretation Comments UA COLOR (test code = COLU) YELLOW DESCRIPT YELLOW UA APPEARANCE (test code = APPU) CLEAR DESCRIPT CLEAR UA GLUCOSE DIPSTICK (test code = DGLUU) NEGATIVE (0) mg/dL (NEG) 0 UA BILIRUBIN DIPSTICK (test code = BILU) NEGATIVE (0) mg/dL (NEG) 0 UA KETONE DIPSTICK (test code = KETU) 0 (NEG) mg/dL (NEG) 0 UA SPECIFIC GRAVITY (test code = SGU) 1.013 SG 1.001-1.035 UA BLOOD DIPSTICK (test code = GONSALO) NEGATIVE (0) mg/DL (NEG) 0 UA PH DIPSTICK (test code = MARISELA) 5.0 pH UNITS 4.6-8.0 UA PROTEIN DIPSTICK (test code = PROU) NEGATIVE (0) mg/dL <30 (1+) UA UROBILINIOGEN DIPSTICK (test code = URO) NORMAL (0) mg/dL <2.0 ( 1+) UA NITRITE DIPSTICK (test code = COURT) NEGATIVE (0) SCREEN NEG UA LEUKOCYTE ESTERASE DIPSTICK (test code = LEUU) NEGATIVE (0) L euk/mcL (NEG) 0 UA RBC (test code = RBCU) #RBC/HPF 0-3 - MRI L-SPINE W/O [id number] 13:31:00 FAX: Michael Quezada MD [phone] [place]: E St: REG Patient Na me: FREDERIC SUMNER Unit No: [id number] EXAMS: CPT CODE: [id number] MRI L-SPINE W/O CONT [id number] Location: T 18 MRI lumbar spine, 03/17/19 TECHNIQUE: MRI assessment of the lumbosa cral spine without contrast was performed on a high field magnet. Multipl jenny and multisequence technique acquired. COMPARISON EXAMS : 12/02/18 CT examination of the lumbar spine CLINICAL HISTORY: L ow back pain, urinary retention FINDINGS: Five non-r ib-bearing lumbar appearing bodies are presumed for the purpose of this di ctation in this patient with with the first conical appearing body being d enoted as S1. Postoperative changes identified is seen on the CT exam with fusion from L4 downwards to S1 via transpedicular screws and rods. Fusion also seen across the SI joints. The canal is developmentally narr ow. This exacerbates the effect of any epidural defect. No signal alterati on within the conus medullaris which terminates at L1. No signal alteratio n within the cord visualized or cord compression. No fracture or marrow ed lynsey. Very minimal bulge at L1-L2. No significant stenosis. At L2-L3, hypertrophy of the facet joints with prominence of epidural fat. Bulging of the annulus of 2 mm. Small degree of central stenosis is identified without definite nerve root displacement. At L3-L4, h ypertrophy of the facet joints. This results in small degree of effacement of the dorsal subarachnoid space. Minimal bulge with borderline to mild c entral stenosis Postop changes at L4-L5 in this patient metallic i nstrumentation somewhat obscuring detail. Probable posterior decompressive procedure. No definite stenosis or arachnoiditis. Postopera tive changes at L5-S1. No significant stenosis identifiable. Probable post erior decompressive procedure with postoperative seroma collection is iden tified on the CT exam. IMPRESSION: Small degre e of central stenosis at L2-L3 due to constellation findings and of a jez rderline to mild degree at L3-L4 Postoperative changes from L4 through the sacrum. No definite pseudoarthrosis or findings of concern for arachnoiditis [facility] Mehdi NAME: FREDERIC OLMSTEAD [address] [place] [address] PHYS: [place], [place] [address] : 1960 AGE: 58 SEX: M LOC: Pepe SADLER PHONE #: [phone] EXAM DATE: 03/17/2019 STATUS: REG ER FAX #: [phone] RAD NO: DC Dt: PAGE 1 Signed Report (CONTINUED) FAX: Michael Quezada MD [phone] [place]: St: REG Patient Name: FREDERIC SUMNER Unit No: [id number] EXAMS: CPT CODE: [id number] MRI L-SPINE W/O CONT 29585 <Continued> No cord compression or signal alteration within the cord at 1331 Reported and signed by: Nikki Person M.D. CC: Michael Burch MD Dictated Date/Time: 03/17/2019 (2849)Technologist: Peter Swan Transcribed Date/Time: 03/17/2019 (0282) By: [email or web address] Orig Print D/T: S: 03/17/2019 (2928) ANGEL Harding NAME: FREDERIC SUMNER [address] [place] [address] PHYS: Michael Sweeney MD, [place] [address] : 1960 AGE: 58 SEX: M LOC: [facility] PHONE #: [phone] EXAM DATE: 03/17/2019 STATUS: REG ER FAX #: [phone] RAD NO: DC Dt: PAGE 2 Signed Report EMERGENCY ROOM [id number] 13:09:00* Test Item Value Reference Range Interpretation Comments DIAGNOSIS (test code = DIAG) SPECIMENS RCVED SPECIMEN RECEIVED RAD, SPINE, LUMBAR, COMPLETE (MIN 4 VIEWS)2019-03-05 14:56:00Reason for exam:-> BACK PAINpt was helping put up [employer] lights on Sunday and sunday when he mis sed the last step of the ladder and landed hard on his left foot, since has been having low back pain and left knee painFINAL REPORT LUMBAR SPINE SERIES History provided: Back pain Five lumbar type vertebra. Prior L5 laminectomy. Pedicle screws with interconnecting rods at L4, L5, and S1, with screws extending across both sacroiliac joints. Interbody bone graft at L4-5. Alignment anatomic. IMPRESSION: Stable postop appearance. Signed: Von Leslie MDReport Verified Date/Time: 03/05/2019 14:56:08 Reading Location: [facility] Diagnostic Imaging Reading Room - [facility] 1.310.12 spine lumbar complete 4 views min 2019-03-05 14:56:00Interface, External Ris In - 03/05/2019 2:58 PM CSTFINAL REPORT LUMBAR SPINE SERIES History provided: Back pain Five lumbar type vertebra. Prior L5 laminectomy. Pedicle screws with interconnecting rods at L4, L5, and S1, with screws extending across both sacroiliac joints. Interbody bone graft at L4-5. Alignment anatomic. IMPRESSION: Stable postop appearance. Signed: Von Leslieeport Verified Date/Time: 03/05/2019 14:56:08 Reading Location: [facility] Diagnostic Imaging Reading Room - [facility] 1.310.12 [facility] METABOLIC [id number] 18:35:00* Test Item Value Reference Range Interpretation Comments SODIUM (BEAKER) (test code = 381) 141 meq/L 135-148 POTASSIUM (BEAKER) (test code = 379) 3.5 meq/L 3.6-5.5 L CHLORIDE (BEAKER) (test code = 382) 106 meq/L 98-106 CO2 (BEAKER) (test code = 355) 26 meq/L 20-29 BLOOD UREA NITROGEN (BEAKER) (test code = 354) 10 mg/dL 10-26 CREATININE (BEAKER) (test code = 358) 0.82 mg/dL 0.50-1.20 GLUCOSE RANDOM (BEAKER) (test code = 652) 105 mg/dL 70-110 CALCIUM (BEAKER) (test code = 697) 9.2 mg/dL 8.5-10.5 EGFR (BEAKER) (test code = 1092) 97 mL/min/1.73 sq m ESTIMATED GFR IS NOT ACCURATE CREATININE CLEARANCE IN PREDICTING GLOMERULAR FILTRATION RATE. ESTIMATED GFR IS NOT APPLICABLE FOR DIALYSIS PATIENTS. CBC W/PLT COUNT & AUTO [id number] 18:20:00* Test Item Value Reference Range Interpretation Comments WHITE BLOOD CELL COUNT (BEAKER) (test code = 775) 5.3 K/ L 4.0- 10.0 RED BLOOD CELL COUNT (BEAKER) (test code = 761) 4.20 M/ L 4.20-5 .80 HEMOGLOBIN (BEAKER) (test code = 410) 12.3 GM/DL 13.0-16.8 L HEMATOCRIT (BEAKER) (test code = 411) 35.6 % 36.0-50.0 L MEAN CORPUSCULAR VOLUME (BEAKER) (test code = 753) 84.8 fL 82. 0-99.0 MEAN CORPUSCULAR HEMOGLOBIN (BEAKER) (test code = 751) 29.3 pg 27.0-33.0 MEAN CORPUSCULAR HEMOGLOBIN CONC (BEAKER) (test code = 752) 34.6 GM/DL 32.0-36.0 RED CELL DISTRIBUTION WIDTH (BEAKER) (test code = 412) 14.5 % 12.0-15.0 PLATELET COUNT (BEAKER) (test code = 756) 186 K/CU MM 150-430 MEAN PLATELET VOLUME (BEAKER) (test code = 754) 8.7 fL 6.0-11 .5 NUCLEATED RED BLOOD CELLS (BEAKER) (test code = 413) 0 /100 WBC 0 -0 NEUTROPHILS RELATIVE PERCENT (BEAKER) (test code = 429) 57 % LYMPHOCYTES RELATIVE PERCENT (BEAKER) (test code = 430) 26 % MONOCYTES RELATIVE PERCENT (BEAKER) (test code = 431) 8 % EOSINOPHILS RELATIVE PERCENT (BEAKER) (test code = 432) 8 % BASOPHILS RELATIVE PERCENT (BEAKER) (test code = 437) 0 % NEUTROPHILS ABSOLUTE COUNT (BEAKER) (test code = 670) 3.03 K/ L 1.80-8.00 LYMPHOCYTES ABSOLUTE COUNT (BEAKER) (test code = 414) 1.39 K/ L 1.48-4.50 L MONOCYTES ABSOLUTE COUNT (BEAKER) (test code = 415) 0.41 K/ L 0. 00-1.30 EOSINOPHILS ABSOLUTE COUNT (BEAKER) (test code = 416) 0.43 K/ L 0.00-0.50 BASOPHILS ABSOLUTE COUNT (BEAKER) (test code = 417) 0.02 K/ L 0. 00-0.20 IMMATURE GRANULOCYTES-RELATIVE PERCENT (BEAKER) (test code = 2801) 1 % 0-0 H MR, SPINE, LUMBAR, WITHOUT [id number] 18:16:00FINAL REPORT MR, SPINE, LUMBAR, WITHOUT CONTRAST INDICATION: Low back pain, incontinence COMPARISON: None TECHNIQUE: Multiplanar, multisequence MR images of the lumbar spine without contrast. FINDINGS: 5 nonrib-bearing lumbar-type vertebral bodies are present. Posterior fusion and decompression spanning L4-L5 and L5-S1. Additionally, there is a sacrum iliac fusion bilaterally. Alignment of the lumbar spine is within normal limits. Vertebral body height is maintained. Multilevel disc space height loss is present. Conus terminates at L1.Cauda equina demonstrates normal appearance.A fluid collection within the subcutaneous soft tissues measures 2.9 x 1.0 x 6.7 cm, the sterility of which ca nnot be assessed by imaging. Evaluation of the individual levels demonstrates: L 1/L2: Symmetric disc bulge. No significant canal or foraminal narrowing..L2/L3: Minimal symmetric disc bulge. Ligamentum flavum thickening. Mildly prominent pos terior epidural fat. Bilateral facet arthropathy and hypertrophy. No significant canal or foraminal narrowing.L3/L4: Symmetric disc bulge. Moderate bilateral fa cet arthropathy and hypertrophy. Ligamentum flavum thickening. Mildly prominent posterior epidural fat. No significant spinal canal or foraminal narrowing.L4/L5 : Disc bulge. Fusion level. No significant spinal canal narrowing. Foramina are largely obscured by metallic hardware.L5/S1: Symmetric disc bulge. Prominent pos terior epidural fat. Foramina and facet joints are largely obscured by extensive metallic hardware artifact. No significant spinal canal narrowing. IMPRESSION: Prior fusion spanning L4-S1 and sacroiliac fusion. No significant spinal canal n arrowing. Metallic hardware obscures the neural foramina multiple levels. Within these limitations, no significant foraminal narrowing. A fluid collection within the subcutaneous soft tissues measures 2.9 x 1.0 x 6.7 cm, the sterility of wh ich cannot be assessed by imaging. Signed: Tatianna Smith MDReport Verified Dell e/Time: 02/26/2019 18:16:00 Reading Location: [address] Neuro Reading Room spine lumbar without IV [id number] 18:16:00Interface, External Ris In - 02/26/2019 6:18 PM CSTFINAL REPORT MR, SPINE, LUMBAR, WITHOUT CONTRAST INDICATION: Low back pain, incontinence COMPARISON: None TECHNIQUE: Multiplanar, multisequence MR images of the lumbar spine without contrast. FINDINGS: 5 nonrib-bearing lumbar-type vertebral bodies are present. Posterior fusion and decompression spanning L4-L5 and L5-S1. Additionally, there is a sacrum iliac fusion bilaterally. Alignment of the lumbar spine is within normal limits. Vertebral body height is maintained. Multilevel disc space height loss is present. Conus terminates at L1.Cauda equina demonstrates normal appearance.A fluid collection within the subcutaneous soft tissues measures 2.9 x 1.0 x 6.7 cm, the sterility of which cannot be assessed by imaging. Evaluation of the individual levels demonstrates: L1/L2: Symmetric disc bulge. No significant canal or foraminal narrowing..L2/L3: Minimal symmetric disc bulge. Ligamentum flavum thickening. Mildly prominent posterior epidural fat. Bilateral facet arthropathy and hypertrophy. No significant canal or foraminal narrowin g.L3/L4: Symmetric disc bulge. Moderate bilateral facet arthropathy and hypertro phy. Ligamentum flavum thickening. Mildly prominent posterior epidural fat. No s ignificant spinal canal or foraminal narrowing.L4/L5: Disc bulge. Fusion level. No significant spinal canal narrowing. Foramina are largely obscured by metallic hardware.L5/S1: Symmetric disc bulge. Prominent posterior epidural fat. Foramina and facet joints are largely obscured by extensive metallic hardware artifact. No significant spinal canal narrowing. IMPRESSION: Prior fusion spanning L4-S1 and sacroiliac fusion. No significant spinal canal narrowing. Metallic hardware obscures the neural foramina multiple levels. Within these limitations, no signi ficant foraminal narrowing. A fluid collection within the subcutaneous soft tiss ues measures 2.9 x 1.0 x 6.7 cm, the sterility of which cannot be assessed by im aging. Signed: Tatianna Smith MDReport Verified Date/Time: 02/26/2019 18:16:00 Reading Location: [address] Neuro Reading Room [facility] RAD, SPINE, LUMBAR, 2 OR 3 [id number] 16:30:00Reason for exam:->BACK PAINPt c/o back pain, states he has had 4 surgeries on his back and it hasnt worked. 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 C/o pain and trouble urinating, patient states sometimes it wont come out, sometimes it barely comes out and then sometime I pee on myself.FINAL REPORT Lumbar spine three views Comparison exam: 07/10/2018 History provided: Back pain Five lumbar type vertebra. Evidence of previous L5 laminectomy and metallic hardware fusion from L4 through the sacroiliac joints. No fracture or subluxation. Disc spacer at L4-5. Hernia mesh repair are noted. IMPRESSION: No acute findings. Postsurgical changes. Signed: Von Leslie Verified Date/Time: 02/26/2019 16:30:51 Reading Location: [facility] Radiology Reading Room spine lumbar 2 or 3 [id number] 16:30:00Interface, External Ris In - 02/26/2019 4:33 PM CSTFINAL REPORT Lumbar spine three views Comparison exam: 07/10/2018 History provided: Back pain Five lumbar type vertebra. Evidence of previous L5 laminectomy and metallic hardware fusion from L4 through the sacroiliac joints. No fracture or subluxation. Disc spacer at L4- 5. Hernia mesh repair are noted. IMPRESSION: No acute findings. Postsurgical changes. Signed: Von Leslie Verified Date/Time: 02/26/2019 16:30:51 Reading Location: [facility] Radiology Reading Room [facility] If [id number] 15:01:00* Test Item Value Reference Range Interpretation Comments Color, UA (test code = 5778-6) Yellow Clarity, UA (test code = 5767-9) Clear Specific [place], UA (test code = 5811-5) 1.015 1.001-1.035 pH, UA (test code = 5803-2) 6.0 5.0-8.0 Protein, UA (test code = 77095-1) Negative Negative Glucose, UA (test code = 365) Negative Negative Ketones, UA (test code = 2514-8) Negative Negative Bilirubin, UA (test code = 59032-6) Negative Negative Blood, UA (test code = 37699-1) Negative Negative Nitrite, UA (test code = 5802-4) Negative Negative Leukocytes, UA (test code = 5799-2) Negative Negative Urobilinogen, UA (test code = 44108-4) 0.2 mg/dL 0.2-1 Specimen Source (test code = 2795) [facility]CROSCOPIC IF [id number] 15:01:00* Test Item Value Reference Range Interpretation Comments COLOR (BEAKER) (test code = 470) Yellow CLARITY (BEAKER) (test code = 469) Clear SPECIFIC GRAVITY UA (BEAKER) (test code = 468) 1.015 1.001-1 .035 PH UA (BEAKER) (test code = 467) 6.0 5.0-8.0 PROTEIN UA (BEAKER) (test code = 464) Negative Negative GLUCOSE UA (BEAKER) (test code = 365) Negative Negative KETONES UA (BEAKER) (test code = 371) Negative Negative BILIRUBIN UA (BEAKER) (test code = 462) Negative Negative BLOOD UA (BEAKER) (test code = 461) Negative Negative NITRITE UA (BEAKER) (test code = 465) Negative Negative LEUKOCYTE ESTERASE UA (BEAKER) (test code = 466) Negative Negat danay UROBILINOGEN UA (BEAKER) (test code = 463) 0.2 mg/dL 0.2-1.0 SOURCE(BEAKER) (test code = 2795) US [id number] 15:04:37Hm Interface, Radiology Results Incoming - 02/23/2019 3:07 PM CSTEXAMINATION: US SCROTALCLINICAL HISTORY: Scrotal mass or lumpCOMPARISON: None.TECHNIQUE: Sonographic evaluation of the scrotum. Real-time B mode grayscale, Doppler spectral analysis and Doppler color flow imaging was used to assess testicular vasculature.FINDINGS:RIGHT HEMISCROTUM: The right testicle measures 4.2 x 2.3 x 2.5 cm Testicular echogenicity is normal. No intratesticular masses are identified. There is normal color and duplex Doppler flow.The right epididymis is minimally enlarged. There is a complex moderate hydrocele. With loculated cystic areas noted just lateral to the testicle probably associated with the epididymis.There is no varicocele.LEFT HEMISCROTUM: The left testicle measures 4.1 x 2.1 x 3.0 cm. Testicular echogenicity is normal. No intratesticular masses are identified. There is normal color and duplex Doppler flow.The left epididymis is unremarkable.There is minimal hydrocele. There is no varicocele.IMPRESSION:Normal scrotal ultras ound examination.[facility]-[id number] MethodistCT Abdomen Pelvis W Contrast 2019-02-23 12:19:25Hm Interface, Radiology Results 02/23/2019 12:22 PM CSTEXAMINATION: CT ABDOMEN PELVIS W CONTRASTCLINICAL HISTORY: Abd pain diverticulitis suspectedTECHNIQUE: Multiple axial CT images of the abdomen and pelvis are obtained with the use of intravenous contrast. Coronal and sagittal 3-D reconstructions are obtained.CT scans are performed using radiation dose reduction techniques. Technical factors are evaluated and adjusted to ensure appropriate moderation of exposure. Automated dose management technology is applied to adjust radiation exposure while achieving a diagnostic quality image.COMPARISON: None.FINDINGS:Visualized lower lung zones are clear.The gallbladder is unremarkable.The CT appearance of the liver, spleen, adrenal glands and pancreas is unremarkable.The abdominal aorta has no aneurysmal dilatation. There is no retroperitoneal adenopathy. The kidneys do not have any solid renal mass or hydronephrosis.CT Pelvis: There is no evidence of pneumoperitoneum. An ostomy is seen in the left lower quadrant. The colon does not have any focal inflammatory change. Small bowel is not dilated. Minimal diverticulosis is present. There is no focal diverticulitis.The bladder is unremarkable. There is no inguinal hernia. Nonspecific inguinal adenopathy is present.IMPRESSION:1. Minimal diverticulosis is present. There is no focal d iverticulitis.2. An ostomy seen in the left lower quadrant.3. There is no bowel obstruction nor any dilatedMEMORIAL [facility]-[id number] MethodistAmylase level 2019-02-23 11:32:02* Test Item Value Reference Range Interpretation Comments Amylase (test code = 1798-8) 34 U/L 13-73 [place] MethodistLipid [id number] 06:40:00* Test Item Value Reference Range Interpretation Comments Cholesterol (test code = 2093-3) 248.0 mg/dL <=200.0 H Triglyceride (test code = 66239596) 249 mg/dL <150 H HDL (test code = 2085-9) 38.0 mg/dL See Reference Range Narrative . LDL (test code = 18131-2) 160 mg/dL <100 H Op timal: < 100.0 mg/dLNear Optimal: 120-129 mg/dLBorderline: 130-159 mg/dLHigh: 160-189 mg/dLVery High: >=190 mg/dL Patient Fasting? (test code = 50013576) No pt drank a coke VARSHA (test code = VARSHA) Patient is not fasting. For a triglyceride result greater than 440 mg/dL, consider re-testing when the patient is in a fasting state. Lab Interpretation (test code = 81670-9) Abnormal [facility]- XR L-SPINE 2/3 [id number] 15:57:00 FAX: Kiran Le [phone] [place]: St: REG FAX: Gema Perez MD [phone] Name: FREDERIC SUMNER [facility] : 1960 Age/S: 58/M [address] [facility] Unit #: [id number] Loc: [place], [place] Phys: Kiran Le [address] Acct: [id number] Dis Date: Status: REG ER PHONE #: [phone] Exam Date: 02/03/2019 1548 FAX #: [phone] Reason: fall, low back pain EXAMS: CPT CODE: [id number] XR L-SPINE 2/3 VIEWS 48653 REASON FOR EXAM: Back pain. Lumbar spine 3 views. COMPARISON: October 04, 2018. Lower lumbar fusion between L4, 5 S1 appears to have well-maintained alignment and disc spaces main tained. No hardware loosening or retraction. Laminectomy at L5. Artifact from abdominal wall hernia repair seen. IMPRESSIO N: No fracture seen. Alignment pattern intact in the spine including di ffusion L4, 5 and S1. No interval change seen. Location: [facility] at 1557 Re ported and signed by: Oziel Bateman M.D. CC: Kiran MATUTE; Gema Perez MD Technologist: ELOISA VELAZQUEZ [facility] Date/Time/By: 02/03/2019 (7141) : By: CalHOAG [facility] PAGE 1 Signed Report FAX: Kiran Le [phone] [place]: St: REG FAX: Gema Perez MD [phone] Name: ROCK SUMNER [facility] : 1960 Age/S: 58/M [address] [facility] Unit #: [id number] Loc: [place], [place] Phys: Kiran Le [address] Acct: [id number] Dis Date: Status: REG ER PHONE #: [phone] Exam D ate: 02/03/2019 1548 FAX #: [phone] Reason: f all, low back pain EXAMS: CPT CODE: [id number] XR L-SPINE 2/3 VIEWS 12314 <Continued> Orig Print D/T: S: 02/03/2019 (2023) PAGE [address] Lumbar Spine Wo [id number] 13:10:03Hm Interface, Radiology Results - 02/03/2019 1:13 PM CSTEXAMINATION: CT LUMBAR SPINE WO CONTRASTCLINICAL HISTORY: painCOMPARISON: Post myelogram CT of the lumbar spine dated to 05/08/2017.FINDINGS: Noncontrast CT of the lumbar spine is interpreted.CT imaging was performed with iterative reconstruction techniques and/or automated exposure control to reduce radiation dose.Again noted is posterior fusion involving L4 through the sacroiliac joints. Bilateral pedicle screws are present in each of the levels with the exception of S1 where there is a unilateral screw on the left. No hardware failure loosening is seen.Vertebral heights are preserved. No displaced fracture aggressive bone lesion is identified.L1-2: Minimal disc degenerative changes. Slight disc bulge.L2-3: Minimal disc degenerative changes. Mild bilateral facet arthrosis.L3-4: Prominent bilateral facet arthrosis. Posterolateral bone graft without definite bridging of the facet joints. Minimal disc bulge. Mild left foraminal stenosis. Mild canal stenosis.L4-5: Interbody and posterior fusion. Interval bridging interbody bone. Interval bridging posterior bone. Partial left facetectomy. Mild to moderate right and mild left foraminal stenosis.L5-S1: Interbody and posterior fusion. Interval bridging interbody bone. Interval bridging posterior bone the right. Left facetectomy. L5 laminectomy. No significant stenosis.Again noted are postoperative changes noted in the posterior soft tissues.IMPRESSION:No acute abnormality lumbar spine is identified.Again noted is estimated posterior fusion extending from L4 through the sacroiliac joints. Again noted are interbody fusions of L4-5 and L5-S1. Ag ain noted is L5 laminectomy and left L5-S1 facetectomy. Partial facetectomy is n oted in the left at L4-5 as well.No significant canal or foraminal stenosis is s een.[id number] MethodistCT, SPINE, LUMBAR, WO [id number] 13:36:00Reason for exam:->BACK PAINWhat is the patient's sedation requirement?-> No SedationFINAL REPORT CT, SPINE, LUMBAR, WO CONTRAST INDICATION: BACK PAINfall COMPARISON: June 07, 2018 TECHNIQUE: Contiguous noncontrast axial images of the lumbar spine are obtained. Computer reformatted coronal and sagittal images are also provided. Axial images are available in both bone and soft tissue algorithm. DOSE REDUCTION: Dose modulation, iterative reconstruction, and/or weight-based adjustment of the mA/kV was utilized to reduce the radiation dose to as low as reasonably achievable. FINDINGS: 5 nonrib-bearing lumbar-type vertebral bodies are present. Prior interbody fusion and decompression spanning L4-L5. No evidence of hardware malalignment or fracture. Alignment of the lumbar spine is within normal limits. Vertebral body height is maintained. Multilevel disc space height loss is present, most conspicuous at L3-T7Jtzwntpvngn images of the spinal canal demonstrate no acute findings. No acute findings in the paraspinal soft tissues. Evaluation of the individual levels demonstrates: L1/L2: Minimal disc bulge and bilateral facet arthropathy and hypertrophy. No significant canal or foraminal narrowing. L2/L3: Minimal disc bulge and bilateral facet arthropathy and hypertrophy. No significant canal or foraminal narrowing. L3/L4: Symmetric disc bulge and severe bilateral facet arthropathy and hypertrophy. Moderate bilateral subarticular recess stenosis with potential impingement of the L4 nerve roots. Facet arthropathy and hypertrophy contributes to mild right and moderate left foraminal narrowing. Mild spinal canal narrowing. L4/L5: Streak artifact from hardware significantly limits evaluation. Within these limitations, at least moderate foraminal stenosis is suspected. L5/S1: Streak artifact from hardware significantly limits evaluation. Within these limitations, at least moderate fo raminal stenosis is suspected IMPRESSION: Multilevel degenerative changes of the lumbar spine, most prominent at L3-L4 as per above. Signed: Tatianna Smith MD Report Verified Date/Time: 01/05/2019 13:36:10 Reading Location: [address] Reading Room Electronically signed by: TATIANNA SMITH MD on 01:36 PM - CT L-SPINE W/O [id number] 09:38:00 Patient Name: FREDERIC SUMNER Unit No: [id number] EXAMS: CPT CODE: [id number] CT L-SPINE W/O CONTRAST 70496 EXAM: - CT L-SPINE W/O CONTRAST HISTORY: pain, prior surgery Location code:C3 TECHNIQUE: Axial tomograms through the lumbar spine were obtained without intravenous contrast. Sagittal and coronal reformatted images are provided. One or more of the following dose reduction techniques were used: Automated exposure control, adjustment of the mA and/or kV according to patient size, and/or utilization of iterative reconstruction technique. DLP: 639.58 mGy-cm. COMPARISON: Abdomen pelvis CT 06/05/2018 FINDINGS: Bilateral pedicle screws in L4 and L5 with bilateral iliac structures is present. Bilateral S1 screws have been removed with exchange of left S1 screw. Vertical stabilization rods are seen. The hardware appears intact and fully engaged. Disc prosthetic device at L4-5 is present. There is no acute fracture or malalignment. Marked facet arthropathy from L3 through S1 is seen. Vascular calcifications are present. IMPRESSION: 1. No acute osseous abnormality with other findings as above. at 0938 Reported and signed by: Juan Carlos Avila M.D. CC: Cruzito Diana DO Dictated Date/Time: 12/02/2018 (937) Technologist: Emma Barbosa CTDI: 21.61 DLP: 639.59 Trnscrpt: 12/02/2018 (937) CalCB5 ANGEL Harding NAME: FREDERIC SUMNER [address] PHYS: JAKUB RevelesCruzito wheat [place] [address] : 1960 AGE: 58 SEX: M LOC: AMEE PHONE #: [phone] EXAM DATE: 12/02/2018 STATUS: PRE ER FAX #: [phone] RAD #: D/C DT PAGE 1 Signed Report Patient Name: FREDERIC SUMNER Unit No: [id number] EXAMS: CPT CODE: [id number] CT L-SPINE W/O CONTRAST 05091 <Continued> Orig Print D/T: S: 12/02/2018 (41) ANGEL Harding NAME: FREDERIC SUMNER [address] PHYS: JAKUB DianaPennie Shepherd [place] [address] : 1960 AGE: 58 SEX: M LOC: Elvia ROJO PHONE #: [phone] EXAM DATE: 12/02/2018 STATUS: PRE ER FAX #: [phone] RAD #: D/C DT PAGE 2 Signed Report - XR L-SPINE 2/3 [id number] 16:07:00 Patient Name: FREDERIC SUMNER Unit No: [id number] EXAMS: CPT CODE: [id number] XR L-SPINE 2/3 VIEWS 62229 Lumbar spine series CLINICAL INDICATION: Back pain COMPARISON: 03/12/2017 Location B2 Frontal, lateral and coned-down views of the lumbar spine demonstrate patient is status post laminectomy with posterior fusion from L4 to S1. Disc spacer is in place at L4-5. 5 lumbar vertebrae are noted. Alignment is anatomic. Multiple coils are present in the left lower quadrant consistent with hernia repair. Bowel gas pattern demonstrates increased feces consistent with constipation. IMPRESSION: Postoperative changes lower lumbar spine, left lower quadrant hernia repair and constipation at 1607 Reported and signed by: Nneka Payton M.D. CC: Salvatore Bazzi; Alexandr Bishop MD Technologist: Chantelle Livingston (RT)(R); Tad Chris RT(R) Transcrpt Date/Tm/Trnsp: 10/04/2018 (1213) [place] Orig Print D/T: S: 10/04/2018 (5610) [facility] NAME: FREDERIC SUMNER [address] PHYS: - Rose Mary,[place] [address] : 1960 AGE: 58 SEX: M LOC: ROBERTO PHONE #: [phone] EXAM DATE: 10/04/2018 STATUS: REG ER FAX #: [phone] RADIOLOGY NO: PAGE 1 Signed Report SURGICAL [id number] 07:42:00 RUN DATE: 09/03/18 [facility] *LIVE* PAGE 1 RUN TIME: 741 Specimen Inqui ry RUN USER: INTERFACE PATIENT: FREDERIC SUMNER ACCT #: [id number] LOC: DINO U #: [id number] AGE/SX: 58/M ROOM: RE08/30/18REG DR: Roger Garvin MD : 62 BED: DIS: STATUS: DEP [facility] TLOC: SPEC #: [id number] RECD: 08/30/18 STATUS: [facility] #: [id number] TONY: 08/30/[address]: Roger Garvin MD ENTERED: 09/02/18 SP TYPE: SURG SPEC OTHR DR: No Isis blane or Family Physician No Primary Care PhysicianORDERED: LEVEL 4 CODES: [id number] - LYMPH NODE, NOS COPIES TO: No Primary or Family Physician Roger Garvin MD [address] [facility] [address] [place], [place] [address] No Primary Care Physician Use by ED only for patient without primary care physician ED USE ONLY-Pt.w/o adri wheat MD PROCEDURES: GM LEVEL 4 (Incomplete) TISSUES: 1. LYMPH NODE, NOS - Lymph node, 4R, FNA 2. LYMPH NODE, NOS - Lymph node, station 7, FNA FINAL DIAGNOSIS Lymph node, 4R, FNA: Insufficient material for evaluation (see microscopic examination). Lymph node, station 7, FNA: Small fra gments of polymorphous lymphoid tissue, and sinus histiocytosis; no evidence of metastatic carcinoma seen. GROSS AND MICROSCOPIC GROSS EXAMINATION: R eceived is/are the specimen/s designated with the appropriate dimensions and block designation: 1. Lymph node, 4R, FNA: For cytology preparations. 2. Lymph node, station 7, FNA: for cytology preparations. MICROSCOPIC EXAMINATION: The cytol ogy preparations (cytospins and cell block section) of specimen #1 reveal s essentially blood components. No malignancy is seen. No significant num elvira of lymphoid cells are seen. CONTINUE D ON NEXT PAGE RUN DATE: 09/03/18 [facility] *LIVE* PAGE 2 RUN TIME: 741 Specimen Inquiry RUN USER: INTERFACE SPEC #: [id number] IAN ENT: FREDERIC SUMNER #[id number] (Continued) GROSS AND MICROSCOPIC (Continued) The cytology preparations (cytospins a nd cell block section) of specimen #2 reveal small fragments of lymphoid tissu e and sinus histiocytosis. No evidence of metastatic carcinoma is seen. POST-OP DIAGNOSIS History of colon c ancer PRE-OP DIAGNOSIS Atelectasis REVIEWED BY: ------ ------ Signed SIGNATURE ON FILE Charis Evans MD 09/03/18 0742 END OF REPORT SURGICAL [id number] 07:42:00 RUN DATE: 09/12/18 [facility] *LIVE* PAGE 1 RUN TIME: 810 Specimen Inqui ry RUN USER: INTERFACE PATIENT: FREDERIC SUMNER ACCT #: G [id number] LOC: DINO U #: [id number] AGE/SX: 58/M ROOM: RE08/30/18BRENNEN DR: Roger Garvin MD : 62 BED: DIS: STATUS: DEP SDC TLOC: SPEC #: [id number] RECD: 08/30/18 STATUS: ECTOR ELI #: [id number] TONY: 08/30/[address]: Roger Garvin MD ENTERED: 09/02/18 SP TYPE: SURG SPEC OTHR DR: No Isis blane or Family Physician No Primary Care PhysicianORDERED: GM LEVEL 4 CODES: [id number] - LYMPH NODE, NOS COPIES TO: No Primary or Family Physician Roger Garvin MD [address] [facility] [address] [place], [place] [address] No Primary Care Physician Use by ED only for patient without primary care physician ED USE ONLY-Pt.w/o adri wheat MD PROCEDURES: GM LEVEL 4 (Incomplete) TISSUES: 1. LYMPH NODE, NOS - Lymph node, 4R, FNA 2. LYMPH NODE, NOS - Lymph node, station 7, FNA ADDENDUM FINDINGS Addendum #1 Entered: 09/12/18 Dr. Juan priest called about the possibility of granulomas in the station 7 node. The block is exhausted. There are noncaseating granulomas present in the deeper sections compatible with sarcoidosis, other causes cannot be entirely exclude d. The findings are communicated to Dr. Dao on 09/11/2018 at 11:00 AM. Addendum Signed SIGNAT URE ON FILE Yaniv Austin DO 09/12/18 0811 CONTINUED ON NEXT PAGE RUN DATE: 09/12/18 [facility] *LIVE* PAGE 2 RUN TIME: 810 Specimen Inquiry RUN USER: INTERFACE -- SPEC #: [id number] PATIENT: FREDERIC SUMNER #[id number] (Continued) FINAL DIAGNOSIS Lymph node, 4R, F NA: Insufficient material for evaluation (see microscopic examination). Lymph node, station 7, FNA: Small fragments of polymorphous lymphoid tissue, and sinus histiocytosis; no evidence of metastatic carcinoma seen. GROSS AND MICROSCOPIC GROSS EXAMINATION: Received is/are the specimen/s designated with the appropriate dimensions and block designation: 1. Lymph node, 4R, FNA: For cytology preparations. 2. Lymph node, station 7, FNA: for cytology preparations. MICROSCOPIC EXAMINATION: The cytology preparations (cytospins and cell block section) of specimen #1 reveals essentially blood components. No malignancy is seen. No significant number of lymphoid cells are seen. The cytology preparations (cytospins and cell block section) of specimen #2 reveal small fragments of lymphoid tissue and sinus histiocytosis. No evidence of metastatic carcinoma is seen. POST- OP DIAGNOSIS History of colon cancer PRE-OP DIAGNOSIS Atelectasis REVIEWED BY: Signed SIGNATURE ON FILE Charis Evans MD 09/03/18 0742 END OF REPORT CBC W/AUTO [id number] 07:09:00* Test Item Value Reference Range Interpretation Comments WHITE BLOOD CELL (test code = WBC) 5.97 x10 3/uL 4.5-11.0 N RED BLOOD CELL (test code = RBC) 4.57 x10 6/uL 4.00-5.60 N HEMOGLOBIN (test code = HGB) 12.0 g/dL 12.5-16.9 L HEMATOCRIT (test code = HCT) 37.6 % 37.5-50.7 N MEAN CELL VOLUME (test code = MCV) 82.3 fL 81.0-99.0 N MEAN CELL HGB (test code = MCH) 26.3 pg 27.0-33.0 L MEAN CELL HGB CONCETRATION (test code = MCHC) 31.9 g/dL 33.0-37. 0 L RED CELL DISTRIBUTION WIDTH CV (test code = RDW) 15.1 % 11.5- 14.5 H RED CELL DISTRIBUTION WIDTH SD (test code = RDW-SD) 44.8 fL 37 .0-54.0 N PLATELET COUNT (test code = PLT) 224 x10 3/uL 150-400 N MEAN PLATELET VOLUME (test code = MPV) 9.2 fL 7.0-9.0 H NEUTROPHIL % (test code = NT%) 64.9 % 56.0-77.0 N IMMATURE GRANULOCYTE % (test code = IG%) 1.0 % 0.0-2.0 N LYMPHOCYTE % (test code = LY%) 21.3 % 14.0-32.0 N MONOCYTE % (test code = MO%) 7.4 % 4.8-9.0 N EOSINOPHIL % (test code = EO%) 4.9 % 0.3-3.7 H BASOPHIL % (test code = BA%) 0.5 % 0.0-2.0 N NUCLEATED RBC % (test code = NRBC%) 0.0 % 0-0 N NEUTROPHIL # (test code = NT#) 3.88 x10 3/uL 2.0-7.6 N IMMATURE GRANULOCYTE # (test code = IG#) 0.06 x10 3/uL 0.00-0.03 H LYMPHOCYTE # (test code = LY#) 1.27 x10 3/uL 1.0-3.8 N MONOCYTE # (test code = MO#) 0.44 x10 3/uL 0.1-0.8 N EOSINOPHIL # (test code = EO#) 0.29 x10 3/uL 0.0-0.2 H BASOPHIL # (test code = BA#) 0.03 x10 3/uL 0.0-0.2 N NUCLEATED RBC # (test code = NRBC#) 0.00 x10 3/uL 0.0-0.1 N MANUAL DIFF REQUIRED (test code = MDIFF) NO BASIC METABOLIC [id number] 07:07:00* Test Item Value Reference Range Interpretation Comments SODIUM (test code = NA) 140 mEq/L 134-147 N POTASSIUM (test code = K) 3.8 mEq/L 3.4-5.0 N CHLORIDE (test code = CL) 109 mEq/L 100-108 H CARBON DIOXIDE (test code = CO2) 23 mEq/L 21-33 N ANION GAP (test code = GAP) 12 0-20 N GLUCOSE (test code = GLU) 90 mg/dL 70-110 N BLOOD UREA NITROGEN (test code = BUN) 20 mg/dL 7-18 H GLOMERULAR FILTRATION RATE (test code = GFR) 77.0 90-95 L Units of measure = ml/min/1.73 m2 CREATININE (test code = CREAT) 1.0 mg/dL 0.6-1.3 N CALCIUM (test code = CA) 8.1 mg/dL 8.0-10.5 N RAD, HIP, 2 VIEWS, [id number] 20:54:00Reason for exam:->BACK PAINReason for exam:->HIP PAINFINAL REPORT CLINICAL HISTORY: Left hip pain COMPARISON: None. FINDINGS: A frontal view of the pelvis and a lateral view of the left hip are submitted. Fusion hardware from L4 through the sacroiliac joints is better described on the lumbar series from the same date. Please refer to that report. There is no acute fracture or malalignment of the pelvis or left hip. No degenerative changes are noted in the hip. No destructive bony lesion is present. Hernia repair mesh overlies the left lower quadrant. Signed: Mini Cisse Verified Date/Time: 07/10/2018 20:54:42 Reading Location: [address] Reading Room , SPINE, LUMBAR, COMPLETE (MIN 4 VIEWS)2018-07-10 20:53:00Reason for exam:->BACK PAINReason for exam:->HIP PAINFINAL REPORT HISTORY:Back pain and hip pain FINDINGS: Five views of the lumbar spine are submitted without comparison. Correlation is made with a CT of the lumbar spine dated 06/07/2018. There are 5 lumbar vertebral levels. There is no acute fracture, malalignment or destruction bony lesion. There is a stable postsurgical appearance of posterior fusion from L4 through the s acroiliac joints. There is no evidence of hardware loosening or failure. Interbo dy spacer material is noted at L4-L5. The neural foramina are grossly patent. N o spondylolisthesis is present. Hernia repair mesh overlies the lower abdomen. IMPRESSION: No acute abnormality or significant interval change when compared to recent CT of the lumbar spine. Signed: Mini Cisse Verified Date/Dakota e: 07/10/2018 20:53:25 Reading Location: [address] Reading Room , SPINE, LUMBAR, WO [id number] 02:09:00Reason for exam:->BACK PAINWhat is the patient's sedation requirement?->No SedationFINAL REPORT CT Lumbar spine CLINICAL HISTORY: BACK PAINlower back pain TECHNIQUE: Contiguous noncontrast axial images of the lumbar spine with coronal and sagittal reformations to assess the alignment. This exam was performed according to the departmental dose optimization program which includes automated exposure control, adjustment of the mA and/or kV according to the patient size, and/or use of an iterative reconstruction technique. COMPARISON: None FINDINGS:The last well-formed disc is designated as L5-S1 for the purposes of this report. Vertebral bodies were numbered using this convention. Postsurgical changes of a posterior instrumented lumbar spinal fusion and decompression of L4 through the bilateral iliac with an absent pedicle screw at S1. Bilateral pedicle screws at L5 and left S1 projects through the anterior cortex of vertebral bodies. Questionable lucency surrounding the S1 pedicle screw. There is an interbody spacer at L4-5. Soft tissue in the posterior subcutaneous space is a very rela pamela to scarring limited evaluation for abnormal fluid collections given signific ant streak artifact and lack of contrast. No lumbar spine or sacral fractures a re evident. Vertebral body heights are preserved. Mild retrolisthesis of L5 on S1. Multilevel degenerative changes with disc space narrowing and facet hypertro phy, in the upper lumbar spine. Indeterminate soft tissue anterior to the sacrum in the pelvis, correlate for prior surgical changes. Bladder wall thickening is nonspecific Otherwise the otherwise abdomen is unremarkable . IMPRESSION: No l umbar fracture or dislocation. Postsurgical changes of a posterior instrumented lumbar spinal fusion of L4 through the bilateral iliac. Indeterminate soft tiss ue anterior to the sacrum in the pelvis is incompletely evaluated on this examin ation, correlate clinically with prior surgical history. Signed: More Morfin MDReport Verified Date/Time: 06/07/2018 02:09:25 Reading Location: [address] Transitional Reading Room ALYSIS W/ REFLEX URINE [id number] 01:11:00* Test Item Value Reference Range Interpretation Comments COLOR (BEAKER) (test code = 470) Yellow CLARITY (BEAKER) (test code = 469) Clear SPECIFIC GRAVITY UA (BEAKER) (test code = 468) 1.019 1.001-1 .035 PH UA (BEAKER) (test code = 467) 5.0 5.0-8.0 PROTEIN UA (BEAKER) (test code = 464) Negative Negative GLUCOSE UA (BEAKER) (test code = 365) Negative Negative KETONES UA (BEAKER) (test code = 371) Negative Negative BILIRUBIN UA (BEAKER) (test code = 462) Negative Negative BLOOD UA (BEAKER) (test code = 461) Negative Negative NITRITE UA (BEAKER) (test code = 465) Negative Negative LEUKOCYTE ESTERASE UA (BEAKER) (test code = 466) Negative Negat danay UROBILINOGEN UA (BEAKER) (test code = 463) < mg/dL 0.2-1.0 RBC UA (BEAKER) (test code = 519) 1 /HPF WBC UA (BEAKER) (test code = 520) 2 /HPF MUCUS (BEAKER) (test code = 1574) Few SQUAMOUS EPITHELIAL (BEAKER) (test code = 516) < /HPF SOURCE(BEAKER) (test code = 2795) - CT ABD PELVIS W/O [id number] 14:11:00 FAX: Shree Mcghee MD [place]: St: REG Name: FREDERIC ZHONG [facility] : 2 Age/S: 57/M [address] [facility] Unit: [id number] Loc: [address] Phys: [place] [address] Acct: [id number] Dis Date: Status: REG ER PHONE #: [phone] Exam Date: 06/05/2018 1315 FAX #: [phone] Reason: fall back pain T- L tenderness EXAMS: CPT CODE: [id number] CT ABD PELVIS W/O CONT 01275 HISTORY: Fall with thoracic and l umbar tenderness. CT chest, unenhanced. Reformatted sagittal and c oronal images. COMPARISON: None Automated exposure control, iterative reconstruction technique, and/or adjustment of mA and/ or kV according to patient's size was utilized for optimum radiation dose reduction. No intravenous contrast was administered. Significan t pathology may be obscured. Thyroid tissue intact. The aor ta has normal diameter. Normal heart size with no pericardial fluid. Mul tiple lymph nodes seen throughout the mediastinum with the largest at the precarinal region up to 2.5 cm, maximum thickness also abnormal 1.3 cm. O ther lymph nodes are smaller. No obvious hilar adenopathy. Retrocrural a denopathy seen, prominent as well. Descending aorta intact. No pleural effusion. The lung window settings do not show pneumot horax. Chronic lung pattern changes present likely interstitial disease o r interstitial edema. No focal bulla or abnormality of the bronchial tree . The bone window settings do not show any bony destructive or scl erotic process. Vertebral bodies appear to be intact on the axial images. Sagittal reformatted images show the spine to be well aligned with no compression injuries prominently. There is a subtle Schmorl's nodes and degenerative changes at the mid to lower spine but no paraspinal edema. No evidence of spinal canal compromise. Reformatted coronal images show mild dextroscoliosis IMPRESSION: Mediastinal and retrocrural adenopathy is nonspecific. This may need close follow-up. Degenerative changes suspected at the mid to lower levels within the s pine with some endplate Schmorl's nodes. Mild dextroscoliosis HISTORY: Back pain, lumbar pain. PAGE 1 Signed Report (CONTINUED) FAX: Shree eMndez MD [place]: St: REG Name: FREDERIC SUMNER [facility] : 1960 Age/S: 57/M [address] [facility] Unit: [id number] Loc: [address] Phys: [place] [address] Acct: [id number] Dis Date: Status: REG ER PHONE #: [phone] Exam Date: 0 06/05/2018 1315 FAX #: [phone] Reason: fall back pain T- L tenderness EXAMS: CPT CODE: [id number] CT ABD PELVIS W/O CONT 65251 <Continued> CT abdomen and pelvis, unenhanced. Reformatted sagittal and coronal images. COMPARISON: May 03, 2017 Automated exposure control, iterative reconstruction technique, and/or adjustment of mA and/or kV according to patient's size was utilized for optimum radiation dose reduction. Neither intravenous nor oral contrast is requested for the exam. Significant pathology may be obscured. The study continues into the abdomen where the spleen appears to be normal in size and uniform density seen. Liver and gallbladder intact. Adrenals are symmetric. Kidneys do not show obstruction, stones or stranding. Pancreas intact. Normal aorta. Bowel loops do not show evidence of obstruction. Stool content prominent. Left lower quadrant colostomy with mesh repair of the abdominal wall. The lower images affected by pedicle screws and rods in the spine. Bladder intact. No free fluid. No inguinal hernia. No obvious iliac chain or retroperitoneal adenopathy. The sagittal images show pedicle screws and rods affixing L4, L5 and S1 with good alignment. Prominent artifact. No wedging fractures. No obvious hardware failure. Limited detail. . IMPRESSION: Limited Study. No acute abnormality in the abdomen. Spleen normal. No suspicious mesenteric or retroperitoneal adenopathy. Spine fixation with hardware fixation at the lower levels, considerable artifact present. Good alignment maintained. Location: U19 Location: U19 PAGE 2 Signed Report (CONTINUED) FAX: Shree Mcghee MD [place]: St: REG Name: FREDERIC SUMNER [facility] : 1960 Age/S: 57/M [address] [facility] Unit: [id number] Loc: [address] [place]: [place] [address] Acct: [id number] Dis Date: Status: REG ER PHONE #: [phone] Exam Date: 06/05/2018 1315 FAX #: [phone] Reason: fall back pain T- L tend erness EXAMS: CPT CODE: [id number] CT ABD PELVIS W/O CONT 91775 <Continued> at 1411 Reported and signed by: Oziel Bateman M.D. CC: Shree Mcghee MD Technologist: MERCEDES SEBASTIAN; MORGAN LEDEZMA Trnscrd Dt/Tm: 06/05/2018 (1411) [place] Orig Print D/T: S: 06/05/2018 (3464 PAGE 3 Signed Report - CT CHEST W/O [id number] 13:41:00 FAX: Shree Mcghee MD [place]: St: REG Name: FREDERIC ZHONG [facility] : 2 Age/S: 57/M [address] [facility] Unit: [id number] Loc: E.ERS2 [place], [place]: [place] [address] Acct: [id number] Dis Date: Status: REG ER PHONE #: [phone] Exam Date: 06/05/2018 1315 FAX #: [phone] Reason: fall back pain T- L tenderness EXAMS: CPT CODE: [id number] CT CHEST W/O CONTRAST 01110 HISTORY: Fall with thoracic and l umbar tenderness. CT chest, unenhanced. Reformatted sagittal and c oronal images. COMPARISON: None Automated exposure control, iterative reconstruction technique, and/or adjustment of mA and/ or kV according to patient's size was utilized for optimum radiation dose reduction. No intravenous contrast was administered. Significan t pathology may be obscured. Thyroid tissue intact. The aor ta has normal diameter. Normal heart size with no pericardial fluid. Mul tiple lymph nodes seen throughout the mediastinum with the largest at the precarinal region up to 2.5 cm, maximum thickness also abnormal 1.3 cm. O ther lymph nodes are smaller. No obvious hilar adenopathy. Retrocrural a denopathy seen, prominent as well. Descending aorta intact. No pleural effusion. The lung window settings do not show pneumot horax. Chronic lung pattern changes present likely interstitial disease o r interstitial edema. No focal bulla or abnormality of the bronchial tree . The bone window settings do not show any bony destructive or scl erotic process. Vertebral bodies appear to be intact on the axial images. Sagittal reformatted images show the spine to be well aligned with no compression injuries prominently. There is a subtle Schmorl's nodes and degenerative changes at the mid to lower spine but no paraspinal edema. No evidence of spinal canal compromise. Reformatted coronal images show mild dextroscoliosis IMPRESSION: Mediastinal and retrocrural adenopathy is nonspecific. This may need close follow-up. Degenerative changes suspected at the mid to lower levels within the s pine with some endplate Schmorl's nodes. Mild dextroscoliosis HISTORY: Back pain, lumbar pain. PAGE 1 Signed Report (CONTINUED) FAX: Shree Mendez MD [place]: St: REG Name: FREDERIC SUMNER [facility] : 1960 Age/S: 57/M [address] [facility] Unit: [id number] Loc: [address] [place]: [place] [address] Acct: [id number] Dis Date: Status: REG ER PHONE #: [phone] Exam Date: 0 06/05/2018 1315 FAX #: [phone] Reason: fall back pain T- L tenderness EXAMS: CPT CODE: [id number] CT CHEST W/O CONTRAST 06381 <Continued> CT abdomen and pelvis, unenhanced. Reformatted sagittal and coronal images. COMPARISON: May 03, 2017 Automated exposure control, iterative reconstruction technique, and/or adjustment of mA and/or kV according to patient's size was utilized for optimum radiation dose reduction. Neither intravenous nor oral contrast is requested for the exam. Significant pathology may be obscured. The study continues into the abdomen where the spleen appears to be normal in size and uniform density seen. Liver and gallbladder intact. Adrenals are symmetric. Kidneys do not show obstruction, stones or stranding. Pancreas intact. Normal aorta. Bowel loops do not show evidence of obstruction. Stool content prominent. Left lower quadrant colostomy with mesh repair of the abdominal wall. The lower images affected by pedicle screws and rods in the spine. Bladder intact. No free fluid. No inguinal hernia. No obvious iliac chain or retroperitoneal adenopathy. The sagittal images show pedicle screws and rods affixing L4, L5 and S1 with good alignment. Prominent artifact. No wedging fractures. No obvious hardware failure. Limited detail. . IMPRESSION: Limited Study. No acute abnormality in the abdomen. Spleen normal. No suspicious mesenteric or retroperitoneal adenopathy. Spine fixation with hardware fixation at the lower levels, considerable artifact present. Good alignment maintained. Location: U19 Location: U19 PAGE 2 Signed Report (CONTINUED) FAX: Shree Mcghee MD [place]: St: REG Name: FREDERIC SUMNER [facility] : 1960 Age/S: 57/M [address] [facility] Unit: [id number] Loc: [address] [place]: [place] [address] Acct: [id number] Dis Date: Status: REG ER PHONE #: [phone] Exam Date: 06/05/2018 1315 FAX #: [phone] Reason: fall back pain T- L tend erness EXAMS: CPT CODE: [id number] CT CHEST W/O CONTRAST 42737 <Continued> at 1341 Reported and signed by: Oziel Bateman M.D. CC: Shree Mcghee MD Technologist: MERCEDES SEBASTIAN; MORGAN LEDEZMA Trnscrd Dt/Tm: 06/05/2018 (0362) tTRISTONM Orig Print D/T: S: 06/05/2018 (6112 PAGE 3 Signed Report - CT C-SPINE W/O [id number] 13:35:00 FAX: Shree Mcghee MD [place]: St: REG Name: FREDERIC ZHONG [facility] : 2 Age/S: 57/M [address] [facility] Unit: [id number] Loc: [address] Phys: [place] [address] Acct: [id number] Dis Date: Status: REG ER PHONE #: [phone] Exam Date: 06/05/2018 1315 FAX #: [phone] Reason: Neck Pain EXAMS: CPT CODE: [id number] CT C-SPINE W/O CONT 32577 CT cervical spine Hi story: Neck Pain Comparison: None at this time Locat ion: R16 CT scan of the cervical spine was performed without intra venous contrast. Sagittal and coronal reconstructed images were al so performed. One or more of the following radiation dose reductio n techniques was used: automated exposure control, adjustment of mA and/or KV according to patient size, and/or utilization of iterative reconstruct ion technique. Quality of Exam: Acceptable. No acute fractures are identified. No bony destructive lesions are seen. No bone fragments in the central canal are identified. There is mild dextroscoliosis of the visualized spine. 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 IMPRESSION: There are degene rative changes. No acute fracture is identified. There is mild dextroscoliosis of the visualized spine. 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 Electronic ally Signed by Sherif Olvera on 06/05/2018 at 6050 Reported and signed by: Justen sampson M.D. PAGE 1 Signed Report (CONTINUED) FAX: Shree Mcghee MD [place]: St: REG ---- Name: FREDERIC SUMNER [facility] : 1960 Age/S: 57/M [address] [facility] Unit: [id number] Loc: [address] Phys: [place] [address] Acct: [id number] Dis Date: Status: REG ER PHONE #: [phone] Exam Date: 06/05/2018 1318 FAX #: Reason: Neck Pain EXAMS : CPT CODE: [id number] CT C-SP INE W/O CONT 76262 <Continued> CC: Shree Mcghee MD Technologist: MERCEDES LEDEZMA Trnscrd Dt/Tm: 06/05/2018 (4527) t.KATHY.PMT Orig Print D/T: S: 06/05/2018 (9971 PAGE 2 Signed Report - CT HEAD/BRAIN W/O [id number] 13:33:00 FAX: Shree Mcghee MD [place]: St: REG Name: FREDERIC ZHONG [facility] : 2 Age/S: 57/M [address] [facility] Unit: [id number] Loc: E.ERS[address] [place], [place]: [place] [address] Acct: [id number] Dis Date: Status: REG ER PHONE #: [phone] Exam Date: 06/05/2018 1315 FAX #: [phone] Reason: Headache EXAMS: CPT CODE: [id number] CT HEAD/BRAIN W/O CONT 05550 CT head History: Yvonne ramirez Comparison: July 27, 2016 Location: R16 Technique: Noncontrast CT scan of the head was performed. O ne or more of the following radiation dose reduction techniques was used: automated exposure control, adjustment of mA and/or KV according to patien t size, and/or utilization of iterative reconstruction technique. Quality of Exam: Acceptable. The ventricles, sulci and cis terns are within normal limits in size for this age patient. There is no convincing evidence of intracranial hemorrhage or mass effect. There is no midline shift. The visualized paranasal sinuses are unrema rkable. IMPRESSION: There is n o imaging evidence of acute intracranial pathology. at 1333 Reported and signed by: Justen Olvera M.D. PAGE 1 Signed Report (CONTINUED) FAX: Shree Mcghee MD [place]: St: REG Name: FREDERIC SUMNER [facility] : 1960 Age/S: [age]/M [address] [facility] Unit: [id number] Loc: E.ERS2 [place], [place]: [place] [address] Acct: [id number] Dis Date: Status: REG ER PHONE #: [phone] Exam D ate: 06/05/2018 1315 FAX #: [phone] Reason: Head ache EXAMS: CPT CODE: [id number] CT HEAD/BRAIN W/O CONT 61100 <Continued> CC: Shree Mcghee MD Technologist: MERCEDES SEBASTIAN; MORGAN LEDEZMA Trnscrd Dt/Tm: 06/05/2018 (1333) t.JUAN MANUELR.PMT Orig Print D/T: S: 06/05/2018 (7496 PAGE 2 Signed Report SP LUMBAR, COMPLETE MIN [id number] 12:36:00 [place] [address] Patient Name: FREDERIC SUMNER MR #: [id number] : 1960 Age/Sex: 57/M Req #: [id number] Adm Physician: Ordered by: JOSEFINA BRISCOE OUTSIDE PRODUCTION INSPECTOR Report #: [id number] Location: ER Room/Bed: Procedure: [id number] DX/SP LUMBAR, COMPLETE MIN 4VW Exam Date: 05/20/18 E xam Time: 1140 REPORT STATUS: Jeni d Exam: Lumbar spine AP lateral oblique History: Back pain Com parison: June 17, 2017 Findings: Fusion of L4 through the pelvis with bila teral transpedicular screws at L4 and L5 and left screw at S1. Screws bridging the sacroiliac joint. Prior decompression at L4-L5 and L5-S1 with interbody c age at L4-L5. No hardware loosening. Prior L5-S1 cage removed. Impression : No acute osseous abnormality L4 pelvic fusion. No complication. Signed by: Dr. Nino Goff M.D. on 05/20/2018 12:38 PM Dictated By: Pennie GOFF MD 12 38 Transcribed By: ALEJANDRA on 05/20/18 1238 COPY TO: JOSEFINA BRISCOE OUTSIDE PRODUCTION INSPECTOR Urine [id number] 16:26:00* Test Item Value Reference Range Interpretation Comments Urine WBC (test code = 5821-4) NONE 0-5 [facility] [id number] 16:26:00* Test Item Value Reference Range Interpretation Comments Urine RBC (test code = 17578-2) NONE 0-5 [facility] Rnukbmhb8601-44-80 16:26:00* Test Item Value Reference Range Interpretation Comments Urine Bacteria (test code = 92598-4) NONE NONE [facility] Epithelial Ekmbh4009-74-97 16:26:00 * Test Item Value Reference Range Interpretation Comments Urine Epithelial Cells (test code = 99770-2) NONE NONE [facility] Femuz3368-66-60 16:06:00* Test Item Value Reference Range Interpretation Comments Urine Color (test code = 5778-6) YELLOW YELLOW [facility] Jzlukeb7748-05-65 16:06:00* Test Item Value Reference Range Interpretation Comments Urine Clarity (test code = 66682-8) CLEAR CLEAR [facility] Specific Vvqqmbw6548-78-14 16:06:00 * Test Item Value Reference Range Interpretation Comments Urine Specific [place] (test code = 5811-5) 1.025 1.010-1.02 5 [facility] [id number] 16:06:00* Test Item Value Reference Range Interpretation Comments Urine pH (test code = 90376-4) 5 5-7 [facility] Leukocyte Nfyhsjhd8016-14-34 16:06:00* Test Item Value Reference Range Interpretation Comments Urine Leukocyte Esterase (test code = 5799-2) NEGATIVE NEGATIVE [facility] Rmmuhvn8527-99-80 16:06:00* Test Item Value Reference Range Interpretation Comments Urine Nitrite (test code = 53688-6) NEGATIVE NEGATIVE [facility] Ngnjzmw7880-66-32 16:06:00* Test Item Value Reference Range Interpretation Comments Urine Protein (test code = 5804-0) NEGATIVE NEGATIVE [facility] Glucose (UA)2017-06-17 16:06:00* Test Item Value Reference Range Interpretation Comments Urine Glucose (UA) (test code = 2349-9) NEGATIVE NEGATIVE [facility] Ghuihml7532-68-19 16:06:00* Test Item Value Reference Range Interpretation Comments Urine Ketones (test code = 30271-5) NEGATIVE NEGATIVE [facility] Wdafmdlkrdly6908-86-66 16:06:00* Test Item Value Reference Range Interpretation Comments Urine Urobilinogen (test code = 60844-4) 0.2 0.2-1 [facility] Rfajskjgb4379-27-91 16:06:00* Test Item Value Reference Range Interpretation Comments Urine Bilirubin (test code = 1978-6) NEGATIVE NEGATIVE [facility] Hpbus7616-95-70 16:06:00* Test Item Value Reference Range Interpretation Comments Urine Blood (test code = 31931-9) NEGATIVE NEGATIVE [facility] Rhdtp2889-49-21 16:06:00* Test Item Value Reference Range Interpretation Comments Urine Color (test code = 5778-6) YELLOW YELLOW [facility] Ntmsyck5904-74-42 16:06:00* Test Item Value Reference Range Interpretation Comments Urine Clarity (test code = 28556-6) CLEAR CLEAR [facility] Specific Ltahpar8052-87-72 16:06:00 * Test Item Value Reference Range Interpretation Comments Urine Specific [place] (test code = 5811-5) 1.025 1.010-1.02 5 [facility] fC7884-26-03 16:06:00* Test Item Value Reference Range Interpretation Comments Urine pH (test code = 25953-8) 5 5-7 [facility] Leukocyte Bfxldqgt4113-95-70 16:06:00* Test Item Value Reference Range Interpretation Comments Urine Leukocyte Esterase (test code = 5799-2) NEGATIVE NEGATIVE [facility] Erflxng5780-86-98 16:06:00* Test Item Value Reference Range Interpretation Comments Urine Nitrite (test code = 05813-3) NEGATIVE NEGATIVE [facility] Zaanzdv2336-24-46 16:06:00* Test Item Value Reference Range Interpretation Comments Urine Protein (test code = 5804-0) NEGATIVE NEGATIVE [facility] Glucose (UA)2017-06-17 16:06:00* Test Item Value Reference Range Interpretation Comments Urine Glucose (UA) (test code = 2349-9) NEGATIVE NEGATIVE [facility] Tfkwkiu7928-03-15 16:06:00* Test Item Value Reference Range Interpretation Comments Urine Ketones (test code = 22115-9) NEGATIVE NEGATIVE [facility] Uuwgebmxxooe2781-17-10 16:06:00* Test Item Value Reference Range Interpretation Comments Urine Urobilinogen (test code = 09159-5) 0.2 0.2-1 [facility] Xhezvbqbh4331-48-03 16:06:00* Test Item Value Reference Range Interpretation Comments Urine Bilirubin (test code = 1978-6) NEGATIVE NEGATIVE [facility] Goxpf9133-30-43 16:06:00* Test Item Value Reference Range Interpretation Comments Urine Blood (test code = 08280-5) NEGATIVE NEGATIVE [facility] HIP 2-3 VIEWs W AP POMIXZ1040-32-78 17:36:31Procedure: XR HIP 2-3 VIEWs W AP PELVISOrdering Provider: CORBIN MURILLOClinical Indication: pain s/p fallComparison: NoneFindings:No acute displaced fracture or dislocation.L4-S1 spinal fusion. Lower lumbar spine facet arthropathy.Multiple small metallic densities are probably from hernia repair on the leftside.Impression:No acute fracture or dislocation of the left hip.This final report was electronically signed by Dr Rafa Shultz MD 02/13/20175:30 PMDictated By: Endy SHULTZte: 02/13/2017 17:36LUMBAR 3 VIEW [place] [address] Patient Name: FREDERIC SUMNER MR #: [id number] : 1960 Age/Sex: 56/M Req #: [id number] Adm Physician: Ordered by: DONALD CASTRO MD, MD Report #: [id number] Location: ER Room/Bed: Procedure: [id number] DX/LUMBAR 3 VIEW Exam Date : 06/17/17 Exam Time: 1445 REPORT STATUS: Jeni d EXAM: LUMBAR 3 VIEW DATE: 06/17/2017 2:32 PM INDICATION: COMPARISON: None FINDINGS: Bilateral pedicle screws are present L4 and L5 with left pedicle screw S1 and bilateral screws extending t hrough the SI joints. Vertical and horizontal stabilization rods present. Disc spacing device at L4-5 and L5-S1 present. Marker of L5-S1 disc spacing device is just posterior to the posterior cortex of L5. Hernia repair changes are pr esent on the left. IMPRESSION: Postsurgical changes as above. Jeni d by: Dr. Uziel Flores MD on 06/17/2017 3:08 PM Dictated By: UZIEL MOORE MD 7158 Transcribed By: ALEJANDRA on 06/17/17 0704 COPY TO: DONALD CASTRO SP LUMBAR AP LATERAL 2-3VWS [facility] [address] [place] [address] Patient Name: FREDERIC SUMNER MR #: [id number] : 1960 Age/Sex: 56/M Req #: [id number] Adm Physician: Ordered by: GUSTAVO CARRILLO NP Report #: [id number] Location: ER Room/Bed: Procedure: [id number] DX/SP LUMBAR AP LATERAL 2-3 VWS Exam Date: Exam Time: REPORT STATUS: Sig gabe Exam: Lumbar spine 2 views History: Neck pain Comparison: None. Findings: No fracture or malalignment. Lumbopelvic fusion from L4 to the pelvis. Interbody device at L4-5 L5-S1. Radiopaque marker of the L5-S1 dev ice just posterior to the posterior cortex of L5. Hardware intact without loos ening or failure. Endplate change of the upper lumbar spine. Impression: Lumbopelvic fusion as above. Signed by: Dr. Nino Gfof M.D. on 7:49 PM Dictated By: NINO GOFF MD 48 Transcribed By: ALEJANDRA on 05/23/17 194 9 COPY TO: GUSTAVO CARRILLO NP
--- OUTSIDE RECORDS SUMMARY | 2019-11-04 15:51 | XMS REPORT | Clinical Summary ---
Author Author [facility] - Health Organization [facility] - Health Address Unknown Phone Unavailable Care Team Providers Care Manager Of Employee Relations Name Role Phone Gabriella Coyle MD 12 Unavailable Pcp, Patient Does Not Have A PCP [phone] Allergies Comments Active Allergy Reactions Severity Noted [...] times daily. Active fluticasone 50 Use 1 [place] 16 g 0 mcg/actuation nasal in each [...] Added automatically from request for gerber wendy [id number] Wound dehiscence 08/23/2017 Hardware complicating wound infection 08/18/2017 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 09/21/2016 Overview: Added automatically from request for buzz nguyen [id number] Chronic diastolic congestive heart failure 7 Narcotic abuse 03/14/2016 Overview: No further narcotic prescriptions from [facility] Family Medicine. Pt informed [...] Encounters Care Team Description Date Type Specialty Doctor Unassigned, [place] 12/04/2018 Orders Only Tammie Tomas FNP Notification (Health maintenance) 11/28/2018 Telephone [facility] Preventive Medicine Adrian Armas FNP Shortness of breath (Primary Dx) 11/12/2018 Emergency Emergency Medicine Golden Rivera RN HEALTH MAINTENANCE (High ED Utilization) 11/01/2018 Telephone [facility] Preventive Medicine Michela Caldwell RN ED F/U 10/18/2018 Patient Case Management Outreach Dee Larios MD Fall, initial encounter (Primary Dx); Cervicalgia; Dorsalgia; Drug-seeking behavior; History of colon cancer; History of cervical fracture; History of [place] (myocardial infarction); Atherosclerosis of [place] coronary artery of [place] heart without angina pectoris; History of transient ischemic attack (TIA); Drug therapy 10/17/2018 Emergency Emergency Medicine Jericho Mejia MD Refill Request (Celecoxib 100 MG cap gre e) 09/11/2018 Refill Internal Medicine from Last 3 Months Immunizations [...] Signs Reading Time Taken Comments Vital Sign 124/78 12/04/2018 8:33 AM CDT Blood Pressure 63 12/04/2018 8:33 AM CDT Pulse 36.5 C (97.7 F) 11/12/2018 6:24 PM CDT Temperature 20 12/04/2018 8:33 AM CDT Respiratory Rate 95% 11/12/2018 6:24 PM CDT Oxygen Saturation - - Inhaled Oxygen Concentration 94.3 kg (207 lb 14.4 oz) 12/04/2018 8:33 AM CDT Weight 170.2 cm (5' 7") 12/04/2018 8:33 AM CDT Height 32.56 12/04/2018 8:33 AM CDT Body Mass Index Plan of [...] Implanted Type Area Manufactur er 04/26/2017 / [id number] / [id number] Dbm Putty Maxxeus 10cc Cts #2017-40 BONE Left: Spin e [employer] - [id number] Tissue Implanted: Qty: 1 on 11/10/2015 by Harrison Sidhu MD at [facility] 07/07/2020 1234-12 / [id number] / [id number] Cancellous Crushed, Community BONE Left: Spine [employer] Tissue Services (1 10mm) Freeze Tissue Dried 60.0 Cc #1234-12 - [id number] Services Implanted: Qty: 1 on 11/10/2015 by Harrison Wise MD at [facility] 10/16/2021 1235-12 / [id number] / [id number] Cancellous Crushed, Community BONE N/A: [facility] Tissue Services (1 10mm) Freeze Tissue Dried 90.0 Cc #1235-12 - Services [id number] Implanted: Qty: 1 on 01/19/2017 by Harrison Wise MD at [facility] 09/22/20182017-40 / [id number] / [id number] Dbm Putty Maxxeus 10cc Cts #2017-40 BONE N/A: [facility] - [id number] Tissue Implanted: Qty: 1 on 01/19/2017 by Services Harrison Wise MD at [facility] 07/23/[id number] / / Duraseal, Covidien Improved Dural Duraseal N/A: Spine [employer]Covid Sealant System 5ml #[id number] - S00 ien Implanted: Qty: 1 on 08/08/2017 by Harrison Wise MD at [facility] 01/19/2027 [id number] / 0 / [id number] Yareli 4.75 Ccm Ns Curved 70mm Solara YARELI N/A: Back Medtronic Medtronic #[id number] - S0 Implanted: Qty: 2 on 01/19/2017 by Harrison Wise MD at [facility] 11/09/2025 [id number] / 0000 / [id number] Screw Solera 6.5x30mm Medtronic SCREW Left: Spine Medtronic #[id number] - [id number] Implanted: Qty: 2 on 11/10/2015 by Harrison Wise MD at [facility] 11/09/2025 [id number] / 0000 / [id number] Screw, Medtronic Solara 6.5x45 SCREW Left: Spine Medtronic #[id number] - [id number] Implanted: Qty: 2 on 11/10/2015 by Harrison Wise MD at [facility] 01/19/2027 [id number] / 0 / [id number] Screw Solera 8.5x30mm Mas Medtronic SCREW N/A: Back Medtronic #[id number] Implanted: Qty: 2 on 01/19/2017 by Harrison Wise MD at [facility] 01/19/2027 [id number] / 0 / [id number] Screw, Medtronic Solara 6.5x45 SCREW N/A: Back Medtronic #[id number] - S0 Implanted: Qty: 2 on 01/19/2017 by Harrison Wise MD at [facility] 08/09/2027 [id number] / 00 / 00 Screw, Medtronic # Set Break Off Ti SCREW N/A: Spine Medtronic #[id number] - S00 Implanted: Qty: 3 on 08/08/2017 by Harrison Wise MD at [facility] Description: No charge for any implant per Hortensia Bell 11/09/2025 [id number] / 000 / [id number] Screw Solera 4.75 Ti Ns Break Off Left: Spine Med tronic Medtronic #[id number] - S000 Implanted: Qty: 4 on 11/10/2015 by Harrison Wise MD at [facility] 11/09/2025 [id number] / 0000 / [id number] Yareli 4.75 Ccm Ns Curved 45mm Solera Left: Spine Me dtronic Medtronic #[id number] - [id number] Implanted: Qty: 2 on 11/10/2015 by Harrison Wise MD at [facility] 01/19/2027 [id number] / 0 / [id number] Screw Solera 4.75 Ti Ns Break Off N/A: Back Med tronic Medtronic #[id number] - S0 Implanted: Qty: 6 on 01/19/2017 by Harrison Wise MD at [facility] 01/19/2027 [id number] / 0 / [id number] Screw Solera 7.5x45mm Medtronic N/A: Back Medtr on #[id number] - S0 Implanted: Qty: 2 on 01/19/2017 by Harrison Wise MD at [facility] Procedures Comments Procedure Name Priority Date/Time Associated Diasacha vazquez [facility] PATIENT FINANCIAL Routine 12/04/2018 POLICY 8:08 AM CDT NO SHOW OR MISSED Routine 12/04/2018 APPOINTMENT POLICY 8:06 AM CDT ACKNOWLEDGEMENT CBC WITH DIFFERENTIAL STAT 11/12/2018 Shortnes s [...] AUTHORIZATIONS from Last 3 Months Results * [facility] PATIENT FINANCIAL POLICY (12/04/2018 8:08 AM CDT) Specimen Performing Organization Address City/State/Zipcode Ph one Number HIM * NO SHOW OR MISSED APPOINTMENT POLICY ACKNOWLEDGEMENT (12/04/2018 8:06 AM CDT) Specimen Performing Organization Address City/State/Zipcode Ph one Number HIM * CBC WITH DIFFERENTIAL (11/12/2018 6:41 PM [...] Performing Organization Address City/State/Zipcode Ph one Number [facility] LABORATORY SERVICES CLIA: [id number], [address] [place] [address] [facility] * Basic Metabolic Panel (NA, K, CL, CO2, GLUCOSE, BUN, CREATININE, CA) (11/12/2018 6:41 PM CDT) NA 142 135 - 145 mmol/L [facility] LABORATO RY SERVICES K 3.9 3.5 - 5.0 mmol/L [facility]AT[facility] RY [facility] CL 109 (H) 98 - 108 mmol/L [facility] LABORATOR Y SERVICES CO2 TOTAL 26 23 - 31 mmol/L [facility] AGAP 7 2 - 16 [facility] BUN 12 7 - 23 mg/dL [facility] GLUCOSE 121 (H) 70 - 110 mg/dL [facility] CREATININE 0.84 0.60 - 1.25 mg/dL [facility] LABORAT ORY SERVICES CALCIUM 9.5 8.6 - 10.6 mg/dL [facility] LABORATO RY SERVICES eGFR 94.2 mL/min/1.73m2 [facility] LABORATORY Calculation SERVICES (Non-) eGFR 114.2 mL/min/1.73m2 [facility] LABORATORY Calculation SERVICES () Specimen Blood - VENOUS Narrative Performed At Association of Glomerular Filtration Rate (GFR) and S taging of Kidney Disease* [facility] LABORATORY + + +------ + SERVICES | [...] abnormalities in imaging tests). Performing Organization Address [facility] Ph one Number [facility] CLIA: [id number], [address] [place] [address] [facility] * Troponin I (11/12/2018 6:41 PM CDT) TROPONIN I 0.001 <=0.034 ng/mL [facility] SERVICES Specimen Blood - VENOUS Narrative Performed At Equal or Less than 0.034 ng/ml---Normal [facility] LAB ORATORY Note: Cardiac troponin begins to [...] patient's use of biotin. Performing Organization Address [facility] one Number [facility] SERVICES CLIA: [id number], [address] [place] [address] [facility] * PATIENT LEAVING AGAINST MEDICAL ADVICE (11/12/2018 12:01 AM CDT) Specimen Performing Organization Address [facility] one Number HIM * EMERGENCY SERVICES AGREEMENTS AND AUTHORIZATIONS (11/12/2018 12:01 AM CDT) Only the most recent of 2 results within the time period is included. Specimen Performing Organization Address [facility] one Number HIM * CT THORACIC SPINE [...] uncinate spurs. These f indings are of jepq-um-cwilmjku severity, for example at C4-C5. CT THORACIC [...] No acute fracture or subluxation is identified. Vasn-dn-erabnyqw facet arth ropathy seen in the nonfused [...] and uncinate spurs. These findings are of lmyz-yl-frygwbsn severity, for example at C4-C5. CT THORACIC [...] No acute fracture or subluxation is identified. Adim-qh-nkhlwedp facet arthropathy seen in the nonfused lumbar [...] uncinate spurs. These f indings are of oskc-sz-xskfysei severity, for example at C4-C5. CT THORACIC [...] No acute fracture or subluxation is identified. Msvt-wz-arxjnecg facet arth ropathy seen in the nonfused [...] and uncinate spurs. These findings are of kcef-qa-kbsyhgdf severity, for example at C4-C5. CT THORACIC [...] No acute fracture or subluxation is identified. Pcjt-rd-easvshmn facet arthropathy seen in the nonfused lumbar [...] uncinate spurs. These f indings are of jumv-nx-qqynmlyy severity, for example at C4-C5. CT THORACIC [...] No acute fracture or subluxation is identified. Lwkg-cw-sodnchxz facet arth ropathy seen in the nonfused [...] and uncinate spurs. These findings are of mzjx-vc-lnvdvsor severity, for example at C4-C5. CT THORACIC [...] No acute fracture or subluxation is identified. Mhgv-xe-idvjnhpa facet arthropathy seen in the nonfused lumbar [...] uncinate spurs. These f indings are of nkhj-lk-qwovcbpk severity, for example at C4-C5. CT THORACIC [...] No acute fracture or subluxation is identified. Wwow-cs-aiecrkuu facet arth ropathy seen in the nonfused [...] and uncinate spurs. These findings are of bwiv-ep-xhgeiipe severity, for example at C4-C5. CT THORACIC [...] No acute fracture or subluxation is identified. Ydmf-pa-evuhgqjq facet arthropathy seen in the nonfused lumbar [...] Plan / Dates Group Medicaid [employer] xxxxxxxxx 2015-P P O MARGI X [facility] [address] [place] [address] Retail Advance Directives Relationship Healthcare Agent Relationship Communicat ion Name Significant Other Primary healthcare agent [phone] (Home) [email or web address] Luanne Carson Child First alternate healthcare agent Rico Christie
--- OUTSIDE RECORDS SUMMARY | 2019-11-04 15:51 | XMS REPORT | Clinical Summary ---
Author Author [facility] [[email or web address] - Health Organization [facility] [[email or web address]] - Health Address Unknown Phone Unavailable Care Team Providers Care Mobile Security Specialist Name Role Phone Gabriella Coyle MD 12 Unavailable Pcp, Patient Does Not Have A PCP [phone] Allergies Comments Active Allergy Reactions Severity Noted [...] by 8 mouth 3 (three) times daily. Additional information Patient taking differently: 600 mg Oral TID, Reported on 07/29/2018 10:03 AM Active cyclobenzaprine 10 mg Take 1 tablet [...] times daily. Active fluticasone 50 Use 1 [place] 16 g 0 mcg/actuation nasal in each [...] mg Take 1 tablet 30 tablet 0 07/25/2 01 tabletIndications: Fall, by mouth 9 initial [...] Added automatically from request for buzz nguyen [id number] Wound dehiscence 08/23/2017 Hardware complicating wound infection 08/18/2017 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 09/21/2016 Overview: Added automatically from request for buzz nguyen [id number] Chronic diastolic congestive heart failure 7 Narcotic abuse 03/14/2016 Overview: No further narcotic prescriptions from [facility] [[email or web address]] Family Medicine. Pt informed 03/13/16.- Angelica Valero [...] Description Date Type Specialty Doctor Unassigned, [place] 12/04/2018 Orders Only Tammie Tomas FNP Notification (Health maintenance) 11/28/2018 Telephone [facility] Preventive Medicine Adrian Armas FNP Shortness of breath (Primary Dx) 11/12/2018 Emergency Emergency Medicine Golden Rivera RN HEALTH MAINTENANCE (High ED Utilization) 11/01/2018 Telephone [facility] Preventive Medicine Michela Caldwell RN ED F/U 10/18/2018 Patient Case Management Outreach Dee Larios MD Fall, initial encounter (Primary Dx); Cervicalgia; Dorsalgia; Drug-seeking behavior; History of colon cancer; History of cervical fracture; History of [place] (myocardial infarction); Atherosclerosis of [place] coronary artery of [place] heart without angina pectoris; History of transient ischemic attack (TIA); Drug therapy 10/17/2018 Emergency Emergency Medicine from Last 3 Months Immunizations Name [...] Implanted Type Area Manufactur er 04/26/20172017- / [id number] / [id number] Dbm Putty Maxxeus 10cc Cts #2018-40 BONE Left: Spin e [facility] - [id number] Tissue Implanted: Qty: 1 on 11/10/2015 by Harrison Sidhu MD at [facility] 07/07/2020 1234-12 / [id number] / [id number] Cancellous Crushed, Community BONE Left: Spine [facility] Tissue Services (1 10mm) Freeze Tissue Dried 60.0 Cc #1234-12 - [id number] Services Implanted: Qty: 1 on 11/10/2015 by Harrison Wise MD at [facility] 10/16/2021 1235-12 / [id number] / [id number] Cancellous Crushed, Community BONE N/A: [facility] Tissue Services (1 10mm) Freeze Tissue Dried 90.0 Cc #1235-12 - Services [id number] Implanted: Qty: 1 on 01/19/2017 by Harrison Wise MD at [facility] 09/22/20182017-40 / [id number] / [id number] Dbm Putty Maxxeus 10cc Cts #2017-40 BONE N/A: [facility] - [id number] Tissue Implanted: Qty: 1 on 01/19/2017 by Services Harrison Wise MD at [facility] 07/23/2018 [id number] / / Duraseal, Covidien Improved Dural Duraseal N/A: Spine [employer]co/Covid Sealant System 5ml #[id number] - S00 ien Implanted: Qty: 1 on 08/08/2017 by Harrison Wise MD at [facility] 01/19/2027 [id number] / 0 / [id number] Yareli 4.75 Ccm Ns Curved 70mm Solara YARELI N/A: Back Medtronic Medtronic #[id number] - S0 Implanted: Qty: 2 on 01/19/2017 by Harrison iWse MD at [facility] 11/09/2025 [id number] / 0000 / [id number] Screw Solera 6.5x30mm Medtronic SCREW Left: Spine Medtronic #[id number] - [id number] Implanted: Qty: 2 on 11/10/2015 by Harrison Wise MD at [facility] 11/09/2025 [id number] / 0000 / [id number] Screw, Medtronic Solara 6.5x45 SCREW Left: Spine Medtronic #[id number] - [id number] Implanted: Qty: 2 on 11/10/2015 by Harrison Wise MD at [facility] 01/19/2027 [id number] / 0 / [id number] Screw Solera 8.5x30mm Mas Medtronic SCREW N/A: Back Medtronic #[id number] Implanted: Qty: 2 on 01/19/2017 by Harrison Wise MD at [facility] 01/19/2027 [id number] / 0 / [id number] Screw, Medtronic Solara 6.5x45 SCREW N/A: Back Medtronic #[id number] - S0 Implanted: Qty: 2 on 01/19/2017 by Harrison Wise MD at [facility] 08/09/2027 [id number] / 00 / 00 Screw, Medtronic # Set Break Off Ti SCREW N/A: Spine Medtronic #[id number] - S00 Implanted: Qty: 3 on 08/08/2017 by Harrison Wise MD at [facility] Description:No charge for any implant per Hortensia Bell 11/09/2025 [id number] / 000 / [id number] Screw Solera 4.75 Ti Ns Break Off Left: Spine Med tronic Medtronic #[id number] - [id number] Implanted: Qty: 4 on 11/10/2015 by Harrison Wise MD at [facility] 11/09/2025 [id number] / 0000 / [id number] Yareli 4.75 Ccm Ns Curved 45mm Solera Left: Spine Me dtronic Medtronic #[id number] - [id number] Implanted: Qty: 2 on 11/10/2015 by Harrison Wise MD at [facility] 01/19/2027 [id number] / 0 / [id number] Screw Solera 4.75 Ti Ns Break Off N/A: Back Med tronic Medtronic #[id number] - S0 Implanted: Qty: 6 on 01/19/2017 by Harrison Wise MD at [facility] 01/19/2027 [id number] / 0 / [id number] Screw Solera 7.5x45mm Medtronic N/A: Back Medtr on #[id number] - S0 Implanted: Qty: 2 on 01/19/2017 by Harrison Wise MD at [facility] Procedures Comments Procedure Name Priority Date/Time Associated Diag george [facility] [[email or web address]] PATIENT FINANCIAL Routine 12/04/2018 POLICY 8:08 AM [...] Shortness of br eath 6:41 PM CDT EKG-12 LEAD Routine 11/12/2018 6:36 PM CDT EMERGENCY SERVICES Routine 11/12/2018 AGREEMENTS [...] AUTHORIZATIONS from Last 3 Months Results * [facility] [[email or web address]] PATIENT FINANCIAL POLICY (12/04/2018 8:08 AM CDT) [...] BASO x10^3 0.04 0.01 - 0.09 10*3/uL [facility] [[email or web address]] LABOR ATORY SERVICES Specimen Blood - VENOUS Performing Organization Address City/State/Zipcode Ph one Number [facility] [[email or web address]] LABORATORY SERVICES CLIA: [id number], [address] [place] [address] [facility] * Basic Metabolic Panel (NA, K, CL, CO2, GLUCOSE, BUN, CREATININE, CA) (11/12/2018 6:41 PM CDT) NA 142 135 - 145 mmol/L [facility] [[email or web address]] LABORATO RY SERVICES K 3.9 3.5 - 5.0 mmol/L [facility] [[email or web address]] LABORATO RY SERVICES CL 109 (H) 98 - 108 mmol/L [facility] [[email or web address]] LABORATOR Y SERVICES CO2 TOTAL 26 23 - 31 mmol/L [facility] [[email or web address]] LABORATORY SERVICES AGAP 7 2 - 16 [facility] [[email or web address]] LABORATORY SERVICES BUN 12 7 - 23 mg/dL [facility] [[email or web address]] LABORATORY SERVICES GLUCOSE 121 (H) 70 - 110 mg/dL [facility] [[email or web address]] LABORATORY SERVICES CREATININE 0.84 0.60 - 1.25 mg/dL [facility] [[email or web address]] LABORAT ORY SERVICES CALCIUM 9.5 8.6 - 10.6 mg/dL [facility] [[email or web address]] LABORATO RY SERVICES eGFR 94.2 mL/min/1.73m2 [facility] [[email or web address]] LABORATORY Calculation SERVICES (Non-) eGFR 114.2 mL/min/1.73m2 [facility] [[email or web address]] LABORATORY Calculation SERVICES () Specimen Blood - VENOUS Narrative Performed At Association of Glomerular Filtration Rate (GFR) and S taging of Kidney Disease* [facility] [[email or web address]] LABORATORY + + +------ + SERVICES | GFR (mL/min/1.73 m2) | With Kidney Damage | Without Kidney Damage + + -------+ + | >90 | S tage one | Normal + + -------+ + | 60-89 | St age two | Decreased GFR + + -------+ + | 30-59 | St age three | Stage three + + -------+ + | 15-29 | St age four | Stage four + + -------+ + | <15 (or dialysis) | Stage fi ve | Stage five + + -------+ + *Each stage assumes the associated GFR level has been in effect for at least three months. Stages 1 to 5, with or without kidney [...] abnormalities in imaging tests). Performing Organization Address City/State/[facility] Cent[facility] Ph one Number [facility] [[email or web address]] LABORATORY SERVICES CLIA: [id number], [address] [place] [address] [facility] * Troponin I (11/12/2018 6:41 PM CDT) TROPONIN I 0.001 <=0.034 ng/mL [facility] [[email or web address]] LABORATORY SERVICES Specimen Blood - VENOUS Narrative Performed At Equal or Less than 0.034 ng/ml---Normal [facility] [[email or web address]] LABO RATORY Note: Cardiac troponin begins to rise 3-4 [...] patient's use of biotin. Performing Organization Address [facility] Ph one Number [facility] [[email or web address]] LABORATORY SERVICES CLIA: [id number], [address] [place] [address] [facility] * EKG-12 LEAD (11/12/2018 6:36 PM CDT) Specimen Performing Organization Address [facility] Ph one Number HST * PATIENT LEAVING AGAINST MEDICAL ADVICE (11/12/2018 12:01 AM CDT) Specimen Performing Organization Address [facility]/State/Zipcode Ph one Number [facility] * EMERGENCY SERVICES AGREEMENTS AND AUTHORIZATIONS (11/12/2018 12:01 AM CDT) Only the most recent of 2 results within the time period is included. Specimen Performing Organization Address [facility]/State/[facility] Cent[facility]ode Ph one Number [facility] * CT [...] uncinate spurs. These f indings are of sazj-aq-huhfvjkb severity, for example at C4-C5. CT THORACIC [...] No acute fracture or subluxation is identified. Xgzc-vj-pzdrjaim facet arth ropathy seen in the nonfused [...] and uncinate spurs. These findings are of wytx-pp-lcomgraj severity, for example at C4-C5. CT THORACIC [...] No acute fracture or subluxation is identified. Ifzu-cl-eqeykcji facet arthropathy seen in the nonfused lumbar [...] uncinate spurs. These f indings are of bfyp-vh-edmoqnrb severity, for example at C4-C5. CT THORACIC SPINE: Dextroscoliosis of the thoracic spine i s noted. The sagittal alignment is otherwise preserved. No acute fracture or subluxation is identified. Vertebral body and disc heights are denise ntained. Mild degenerative changes are noted in the form of disc space srtuhi rowing and facet arthropathy. No high-grade spinal [...] No acute fracture or subluxation is identified. Kjvd-px-vyxynjuo facet arth ropathy seen in the nonfused [...] and uncinate spurs. These findings are of khqx-oj-sscxlcyg severity, for example at C4-C5. CT THORACIC [...] No acute fracture or subluxation is identified. Zuur-xh-qtosgmqw facet arthropathy seen in the nonfused lumbar [...] uncinate spurs. These f indings are of lanx-uy-nsgjpimw severity, for example at C4-C5. CT THORACIC [...] No acute fracture or subluxation is identified. Iiav-bw-tbqamchx facet arth ropathy seen in the nonfused [...] and uncinate spurs. These findings are of uqsw-ky-mthknohl severity, for example at C4-C5. CT THORACIC [...] No acute fracture or subluxation is identified. Qean-tl-lzcdcsgy facet arthropathy seen in the nonfused lumbar [...] uncinate spurs. These f indings are of sxtd-sq-fzqkacdk severity, for example at C4-C5. CT THORACIC [...] No acute fracture or subluxation is identified. Hgbt-cw-snajebub facet arth ropathy seen in the nonfused [...] and uncinate spurs. These findings are of bvlo-dr-onhbacvl severity, for example at C4-C5. CT THORACIC [...] No acute fracture or subluxation is identified. Qwzk-fh-ixnqzerc facet arthropathy seen in the nonfused lumbar [...] Plan / Dates Group Medicaid [employer] [place] AMER[employer] xxxxxxxxx 2015-P P O [facility] [address] [place] [address] Retail Advance Directives Relationship Healthcare Agent Relationship Communicat ion Name Significant Other Primary healthcare agent [phone] (Home) [email or web address] Luanne Carson Child First alternate healthcare agent Rico Christie
--- OUTSIDE RECORDS SUMMARY | 2019-11-04 15:51 | XMS REPORT | Clinical Summary ---
Author Author [facility] - Health Organization [facility] - Health Address Unknown Phone Unavailable Care Team Providers Care [facility] Assistant Director Name Role Phone Gabriella Coyle MD 12 Unavailable Pcp, Patient Does Not Have A PCP [phone] Allergies Comments Active Allergy Reactions Severity Noted [...] times daily. Active fluticasone 50 Use 1 [place] 16 g 0 mcg/actuation nasal in [...] Added automatically from request for gerber wendy [id number] Wound dehiscence 08/23/2017 Hardware complicating wound infection 08/18/2017 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 09/21/2016 Overview: Added automatically from request for buzz nguyen [id number] Chronic diastolic congestive heart failure 7 Narcotic abuse 03/14/2016 Overview: No further narcotic prescriptions from [facility] Family Medicine. Pt informed 03/13/16.- Angelica [...] Team Description Date Type Specialty Doctor Unassigned, [place] 12/04/2018 Orders Only Tammie Tomas FNP Notification (Health maintenance) 11/28/2018 Telephone [facility] Preventive Medicine Adrian Armas FNP Shortness of breath (Primary Dx) 11/12/2018 Emergency Emergency Medicine Golden Rivera RN HEALTH MAINTENANCE (High ED Utilization) 11/01/2018 Telephone [facility] Preventive Medicine Michela Caldwell RN ED F/U 10/18/2018 Patient Case Management Outreach Dee Larios MD Fall, initial encounter (Primary Dx); Cervicalgia; Dorsalgia; Drug-seeking behavior; History of colon cancer; History of cervical fracture; History of [place] (myocardial infarction); Atherosclerosis of [place] coronary artery of [place] heart without angina pectoris; History of transient [...] Implanted Type Area Manufactur er 04/26/2017 / [id number] / [id number] Dbm Putty Maxxeus 10cc Cts #2017-40 BONE Left: Spin e [facility] - [id number] Tissue Implanted: Qty: 1 on 11/10/2015 by Harrison Sidhu MD at [facility] 07/07/2020 1234-12 / [id number] / [id number] Cancellous Crushed, Community BONE Left: Spine [facility] Tissue Services (1 10mm) Freeze Tissue Dried 60.0 Cc #1234-12 - [id number] Services Implanted: Qty: 1 on 11/10/2015 by Harrison Wise MD at [facility] 10/16/2021 1235-12 / [id number] / [id number] Cancellous Crushed, Community BONE N/A: [facility] Tissue Services (1 10mm) Freeze Tissue Dried 90.0 Cc #1235-12 - Services [id number] Implanted: Qty: 1 on 01/19/2017 by Harrison Wise MD at [facility] 09/22/20182017-40 / [id number] / [id number] Dbm Putty Maxxeus 10cc Cts #2017-40 BONE N/A: [facility] - [id number] Tissue Implanted: Qty: 1 on 01/19/2017 by Services Harrison Wise MD at [facility] 07/23/2018145014 / / Duraseal, Covidien Improved Dural Duraseal N/A: Spine [employer]co/Covid Sealant System 5ml #[id number] - S00 ien Implanted: Qty: 1 on 08/08/2017 by Harrison Wise MD at [facility] 01/19/2027 [id number] / 0 / [id number] Yareli 4.75 Ccm Ns Curved 70mm Solara YARELI N/A: Back Medtronic Medtronic #[id number] - S0 Implanted: Qty: 2 on 01/19/2017 by Harrison Wise MD at [facility] 11/09/2025 [id number] / 0000 / [id number] Screw Solera 6.5x30mm Medtronic SCREW Left: Spine Medtronic #[id number] - [id number] Implanted: Qty: 2 on 11/10/2015 by Harrison Wise MD at [facility] 11/09/2025 [id number] / 0000 / [id number] Screw, Medtronic Solara 6.5x45 SCREW Left: Spine Medtronic #[id number] - [id number] Implanted: Qty: 2 on 11/10/2015 by Harrison Wise MD at [facility] 01/19/2027 [id number] / 0 / [id number] Screw Solera 8.5x30mm Mas Medtronic SCREW N/A: Back Medtronic #[id number] Implanted: Qty: 2 on 01/19/2017 by Harrison Wise MD at [facility] 01/19/2027 [id number] / 0 / [id number] Screw, Medtronic Solara 6.5x45 SCREW N/A: Back Medtronic #[id number] - S0 Implanted: Qty: 2 on 01/19/2017 by Harrison Wise MD at [facility] 08/09/2027 [id number] / 00 / 00 Screw, Medtronic # Set Break Off Ti SCREW N/A: Spine Medtronic #[id number] - S00 Implanted: Qty: 3 on 08/08/2017 by Harrison Wise MD at [facility] Description: No charge for any implant per Hortensia Bell 11/09/2025 [id number] / 000 / [id number] Screw Solera 4.75 Ti Ns Break Off Left: Spine Med tronic Medtronic #[id number] - S000 Implanted: Qty: 4 on 11/10/2015 by Harrison Wise MD at [facility] 11/09/2025 [id number] / 0000 / [id number] Yareli 4.75 Ccm Ns Curved 45mm Solera Left: Spine Me dtronic Medtronic #[id number] - [id number] Implanted: Qty: 2 on 11/10/2015 by Harrison Wise MD at [facility] 01/19/2027 [id number] / 0 / [id number] Screw Solera 4.75 Ti Ns Break Off N/A: Back Med tronic Medtronic #[id number] - S0 Implanted: Qty: 6 on 01/19/2017 by Harrison Wise MD at [facility] 01/19/2027 [id number] / 0 / [id number] Screw Solera 7.5x45mm Medtronic N/A: Back Medtr on #[id number] - S0 Implanted: Qty: 2 on 01/19/2017 by Harrison Wise MD at [facility] Procedures Comments Procedure Name Priority Date/Time Associated Diasacha vazquez [facility] PATIENT FINANCIAL Routine 12/04/2018 POLICY 8:08 AM [...] AUTHORIZATIONS from Last 3 Months Results * [facility] PATIENT FINANCIAL POLICY (12/04/2018 8:08 AM CDT) [...] Performing Organization Address City/State/Zipcode Ph one Number [facility] LABORATORY SERVICES CLIA: [id number], [address] [place] [address] [facility] * Basic Metabolic Panel (NA, K, CL, CO2, GLUCOSE, BUN, CREATININE, CA) (11/12/2018 6:41 PM CDT) NA 142 135 - 145 mmol/L [facility] LABORATO RY SERVICES K 3.9 3.5 - 5.0 mmol/L [facility] LABORATO RY SERVICES CL 109 (H) 98 - 108 mmol/L [facility] LABORATOR Y SERVICES CO2 TOTAL 26 23 - 31 mmol/L [facility] LABORATORY SERVICES AGAP 7 2 - 16 [facility] LABORATORY SERVICES BUN 12 7 - 23 mg/dL [facility] LABORATORY SERVICES GLUCOSE 121 (H) 70 - 110 mg/dL [facility] LABORATORY SERVICES CREATININE 0.84 0.60 - 1.25 mg/dL [facility] LABORAT ORY SERVICES CALCIUM 9.5 8.6 - 10.6 mg/dL [facility] LABORATO RY SERVICES eGFR 94.2 mL/min/1.73m2 [facility] LABORATORY Calculation SERVICES (Non-) eGFR 114.2 mL/min/1.73m2 [facility] LABORATORY Calculation SERVICES () Specimen Blood - VENOUS Narrative Performed At Association of Glomerular Filtration Rate (GFR) and S taging of Kidney Disease* [facility] LABORATORY + + +------ + SERVICES [...] abnormalities in imaging tests). Performing Organization Address [facility] Ph one Number [facility] LABORATORY SERVICES CLIA: [id number], [address] [place] [address] [facility] * Troponin I (11/12/2018 6:41 PM CDT) TROPONIN I 0.001 <=0.034 ng/mL [facility] LABORATORY SERVICES Specimen Blood - VENOUS Narrative Performed At Equal or Less than 0.034 ng/ml---Normal [facility] LAB ORATORY Note: Cardiac troponin begins [...] patient's use of biotin. Performing Organization Address [facility] one Number [facility] LABORATORY SERVICES CLIA: [id number], [address] [place] [address] [facility] * PATIENT LEAVING AGAINST MEDICAL ADVICE (11/12/2018 12:01 AM CDT) Specimen Performing Organization Address [facility] one Number [facility] * EMERGENCY SERVICES AGREEMENTS AND AUTHORIZATIONS (11/12/2018 12:01 AM CDT) Only the most recent of 2 results within the time period is included. Specimen Performing Organization Address [facility] one Number HIM * CT THORACIC SPINE [...] uncinate spurs. These f indings are of mrfc-gl-yddntdif severity, for example at C4-C5. CT THORACIC [...] No acute fracture or subluxation is identified. Ncnq-mg-ucbbaqmn facet arth ropathy seen in the nonfused [...] and uncinate spurs. These findings are of slhk-bv-bbikmrye severity, for example at C4-C5. CT THORACIC [...] No acute fracture or subluxation is identified. Jvff-bj-xclnrgdr facet arthropathy seen in the nonfused lumbar [...] uncinate spurs. These f indings are of wclq-xx-fewzdnwc severity, for example at C4-C5. CT THORACIC [...] No acute fracture or subluxation is identified. Baha-nc-ikgtmjgv facet arth ropathy seen in the nonfused [...] and uncinate spurs. These findings are of xgkn-gq-aqvqkxgs severity, for example at C4-C5. CT THORACIC [...] No acute fracture or subluxation is identified. Bcpn-fo-awwpapmv facet arthropathy seen in the nonfused lumbar [...] uncinate spurs. These f indings are of urio-vr-bwfgwqma severity, for example at C4-C5. CT THORACIC [...] No acute fracture or subluxation is identified. Sjri-sb-yrrupgvi facet arth ropathy seen in the nonfused [...] and uncinate spurs. These findings are of nphn-md-ugrfatnr severity, for example at C4-C5. CT THORACIC [...] No acute fracture or subluxation is identified. Djwe-hp-fqypvzgb facet arthropathy seen in the nonfused lumbar [...] uncinate spurs. These f indings are of ztqz-xb-qepgqxhh severity, for example at C4-C5. CT THORACIC [...] No acute fracture or subluxation is identified. Nzie-cd-ulnmutwl facet arth ropathy seen in the nonfused [...] and uncinate spurs. These findings are of rrzg-us-awabvdaw severity, for example at C4-C5. CT THORACIC [...] No acute fracture or subluxation is identified. Ctni-gn-ruvbbfdr facet arthropathy seen in the nonfused lumbar [...] Plan / Dates Group Medicaid [employer] [place] [employer] xxxxxxxxx 2015-P P O MARGI X [facility] [address] [place] [address] Retail Advance Directives Relationship Healthcare Agent Relationship Communicat ion Name Significant Other Primary healthcare agent [phone] (Home) [email or web address] Luanne Carson Child First alternate healthcare agent Rico Christie
--- OUTSIDE RECORDS SUMMARY | 2019-11-04 15:51 | XMS REPORT | Clinical Summary ---
Author Author [facility] - Health Organization [facility] - Health Address Unknown Phone Unavailable Care Team Providers Care Die Storage Worker Name Role Phone Gabriella Coyle MD 12 Unavailable Pcp, Patient Does Not Have A PCP [phone] Allergies Comments Active Allergy Reactions Severity Noted [...] times daily. Active fluticasone 50 Use 1 [place] 16 g 0 mcg/actuation nasal in each [...] Added automatically from request for gerber wendy [id number] Wound dehiscence 08/23/2017 Hardware complicating wound infection 08/18/2017 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 09/21/2016 Overview: Added automatically from request for buzz nguyen [id number] Chronic diastolic congestive heart failure 7 Narcotic abuse 03/14/2016 Overview: No further narcotic prescriptions from [facility] Family Medicine. Pt informed 03/13/16.- [...] Team Description Date Type Specialty Doctor Unassigned, [place] 12/04/2018 Orders Only Tammie Tomas FNP Notification (Health maintenance) 11/28/2018 Telephone [facility] Preventive Medicine Adrian Armas FNP Shortness of breath (Primary Dx) 11/12/2018 Emergency Emergency Medicine Golden Rivera RN HEALTH MAINTENANCE (High ED Utilization) 11/01/2018 Telephone [facility] Preventive Medicine Michela Caldwell RN ED F/U 10/18/2018 Patient Case Management Outreach Dee Larios MD Fall, initial encounter (Primary Dx); Cervicalgia; Dorsalgia; Drug-seeking behavior; History of colon cancer; History of cervical fracture; History of DC (myocardial infarction); Atherosclerosis of [place] coronary artery of [place] heart without angina pectoris; History of transient [...] Implanted Type Area Manufactur er 04/26/2017 / [id number] / [id number] Dbm Putty Maxxeus 10cc Cts #2017-40 BONE Left: [facility] - [id number] Tissue Implanted: Qty: 1 on 11/10/2015 by Harrison Sidhu MD at [facility] 07/07/2020 1234-12 / [id number] / [id number] Cancellous Crushed, Community BONE Left: [facility] Tissue Services (1 10mm) Freeze Tissue Dried 60.0 Cc #1234-12 - S0000 Services Implanted: Qty: 1 on 11/10/2015 by Harrison Wise MD at [facility] 10/16/2021 1235-12 / [id number] / [id number] Cancellous Crushed, Community BONE N/A: [facility] Tissue Services (1 10mm) Freeze Tissue Dried 90.0 Cc #1235-12 - Services [id number] Implanted: Qty: 1 on 01/19/2017 by Harrison Wise MD at [facility] 09/22/20182017-40 / [id number] / [id number] Dbm Putty Maxxeus 10cc Cts #2017-40 BONE N/A: [facility] - [id number] Tissue Implanted: Qty: 1 on 01/19/2017 by Services Harrison Wise MD at [facility] 07/23/2018159310 / / Duraseal, Covidien Improved Dural Duraseal N/A: Spine Tyco/Covid Sealant System 5ml #662804 - S00 ien Implanted: Qty: 1 on 08/08/2017 by Harrison Wise MD at [facility] 01/19/2027 [id number] / 0 / [id number] Yareli 4.75 Ccm Ns Curved 70mm Solara YARELI N/A: Back Medtronic Medtronic #[id number] - S0 Implanted: Qty: 2 on 01/19/2017 by Harrison Wise MD at [facility] 11/09/2025 [id number] / 0000 / [id number] Screw Solera 6.5x30mm Medtronic SCREW Left: Spine Medtronic #[id number] - [id number] Implanted: Qty: 2 on 11/10/2015 by Harrison Wise MD at [facility] 11/09/2025 [id number] / 0000 / [id number] Screw, Medtronic Solara 6.5x45 SCREW Left: Spine Medtronic #[id number] - [id number] Implanted: Qty: 2 on 11/10/2015 by Harrison Wise MD at [facility] 01/19/2027 [id number] / 0 / [id number] Screw Solera 8.5x30mm Mas Medtronic SCREW N/A: Back Medtronic #[id number] Implanted: Qty: 2 on 01/19/2017 by Harrison Wise MD at [facility] 01/19/2027 [id number] / 0 / [id number] Screw, Medtronic Solara 6.5x45 SCREW N/A: Back Medtronic #[id number] - S0 Implanted: Qty: 2 on 01/19/2017 by Harrison Wise MD at [facility] 08/09/2027 [id number] / 00 / 00 Screw, Medtronic # Set Break Off Ti SCREW N/A: Spine Medtronic #[id number] - S00 Implanted: Qty: 3 on 08/08/2017 by Harrison Wise MD at [facility] Description: No charge for any implant per Hortensia Bell 11/09/2025 [id number] / 000 / [id number] Screw Solera 4.75 Ti Ns Break Off Left: Spine Med tronic Medtronic #[id number] - S000 Implanted: Qty: 4 on 11/10/2015 by Harrison Wise MD at [facility] 11/09/2025 [id number] / 0000 / [id number] Yareli 4.75 Ccm Ns Curved 45mm Solera Left: Spine Me dtronic Medtronic #[id number] - [id number] Implanted: Qty: 2 on 11/10/2015 by Harrison Wise MD at [facility] 01/19/2027 [id number] / 0 / [id number] Screw Solera 4.75 Ti Ns Break Off N/A: Back Med tronic Medtronic #[id number] - S0 Implanted: Qty: 6 on 01/19/2017 by Harrison Wise MD at [facility] 01/19/2027 [id number] / 0 / [id number] Screw Solera 7.5x45mm Medtronic N/A: Back Medtr on #[id number] - S0 Implanted: Qty: 2 on 01/19/2017 by Harrison Wise MD at [facility] Procedures Comments Procedure Name Priority Date/Time Associated Diasacha vazquez [facility] PATIENT FINANCIAL Routine 12/04/2018 POLICY [...] AUTHORIZATIONS from Last 3 Months Results * [facility] PATIENT FINANCIAL POLICY (12/04/2018 8:08 [...] Performing Organization Address City/State/Zipcode Ph one Number [facility] CLIA: [id number], [address] [place] [address] [facility] * Basic Metabolic Panel (NA, K, CL, CO2, GLUCOSE, BUN, CREATININE, CA) (11/12/2018 6:41 PM CDT) NA 142 135 - 145 mmol/L [facility] K 3.9 3.5 - 5.0 mmol/L [facility] CL 109 (H) 98 - 108 mmol/L [facility] CO2 TOTAL 26 23 - 31 mmol/L [facility] AGAP 7 2 - 16 [facility] BUN 12 7 - 23 mg/dL [facility] GLUCOSE 121 (H) 70 - 110 mg/dL [facility] CREATININE 0.84 0.60 - 1.25 mg/dL [facility] OR[facility] CALCIUM 9.5 8.6 - 10.6 mg/dL [facility] eGFR 94.2 mL/min/1.73m2 [facility] Calculation SERVICES (Non-) eGFR 114.2 mL/min/1.73m2 [facility] Calculation SERVICES () Specimen Blood - VENOUS Narrative Performed At Association of Glomerular Filtration Rate (GFR) and S taging of Kidney Disease* [facility] + + +------ + [...] abnormalities in imaging tests). Performing Organization Address [facility] Ph one Number [facility] CLIA: [id number], [address] [place] [id number] [facility] * Troponin I (11/12/2018 6:41 PM CDT) TROPONIN I 0.001 <=0.034 ng/mL [facility] Specimen Blood - VENOUS Narrative Performed At Equal or Less than 0.034 ng/ml---Normal [facility] Note: Cardiac troponin [...] patient's use of biotin. Performing Organization Address [facility] one Number [facility] CLIA: [id number], [address] [place] [address] [facility] * PATIENT LEAVING AGAINST MEDICAL ADVICE (11/12/2018 12:01 AM CDT) Specimen Performing Organization Address [facility] one Number HIM * EMERGENCY SERVICES AGREEMENTS AND AUTHORIZATIONS (11/12/2018 12:01 AM CDT) Only the most recent of 2 results within the time period is included. Specimen Performing Organization Address [facility] one Number HIM * CT THORACIC SPINE [...] uncinate spurs. These f indings are of lcaa-uu-ikvesols severity, for example at C4-C5. CT THORACIC [...] No acute fracture or subluxation is identified. Osen-mh-xdjqcrtv facet arth ropathy seen in the nonfused [...] and uncinate spurs. These findings are of yqht-tt-bsmbddxr severity, for example at C4-C5. CT THORACIC [...] No acute fracture or subluxation is identified. Ieyf-ge-jsmagils facet arthropathy seen in the nonfused lumbar [...] uncinate spurs. These f indings are of zzbi-qy-mutlxfxo severity, for example at C4-C5. CT THORACIC [...] No acute fracture or subluxation is identified. Vlmc-un-xpynvmtp facet arth ropathy seen in the nonfused [...] and uncinate spurs. These findings are of xmdo-rt-ifsvzpqy severity, for example at C4-C5. CT THORACIC [...] No acute fracture or subluxation is identified. Efph-yo-oqwjqzdw facet arthropathy seen in the nonfused lumbar [...] uncinate spurs. These f indings are of qged-kv-zomnnfpg severity, for example at C4-C5. CT THORACIC [...] No acute fracture or subluxation is identified. Aehr-wt-skzzhdph facet arth ropathy seen in the nonfused [...] and uncinate spurs. These findings are of dted-jz-rqtzfcie severity, for example at C4-C5. CT THORACIC [...] No acute fracture or subluxation is identified. Fpvd-ks-ephdvwrr facet arthropathy seen in the nonfused lumbar [...] uncinate spurs. These f indings are of xder-fp-ibgnpxkz severity, for example at C4-C5. CT THORACIC [...] No acute fracture or subluxation is identified. Nlwj-ts-nzwqkvxf facet arth ropathy seen in the nonfused [...] and uncinate spurs. These findings are of gluw-rc-pkbhxnfy severity, for example at C4-C5. CT THORACIC [...] No acute fracture or subluxation is identified. Usqm-pw-hbstdheq facet arthropathy seen in the nonfused lumbar [...] Plan / Dates Group Medicaid [employer] [place] xxxxxxxxx 2015-P P O MARGI X [facility] [address] [place] [address] PratikHarvey Selwyn Hearing Self [address] Aids (Home) [place] [address] Retail Advance Directives Relationship Healthcare Agent Relationship Communicat ion Name Significant Other Primary healthcare agent [phone] (Home) [email or web address] Luanne Carson Child First alternate healthcare agent Rico Christie
--- OUTSIDE RECORDS SUMMARY | 2019-11-04 15:52 | XMS REPORT | Clinical Summary ---
Author Author [facility] - Health Organization [facility] - Health Address Unknown Phone Unavailable Care Team Providers Care Glass Selector Name Role Phone Gabriella Coyle MD 12 Unavailable Pcp, Patient Does Not Have A PCP [phone] Allergies Comments Active Allergy Reactions Severity Noted [...] times daily. Active fluticasone 50 Use 1 [place] 16 g 0 mcg/actuation nasal in each [...] mg Take 1 tablet 20 tablet 0 20 1 tabletIndications: Fall, by mouth 9 initial [...] 150 mg 24 Take 1 30 capsule 5 1 hr capsuleIndications: capsule by 9 Generalized anxiety mouth daily disorder with breakfast. Active diazePAM 5 mg Take 1 tablet 60 tablet 3 tabletIndications: by mouth 2 9 Generalized anxiety (two) times disorder daily. Active Problems Problem Noted Date Infection 09/28/2017 Chronic midline low back pain without sciatica 09/27 Overview: Added automatically from request for gerber wendy [id number] Wound dehiscence 08/23/2017 Hardware complicating wound infection 08/18/2017 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 09/21/2016 Overview: Added automatically from request for gerber wendy [id number] Chronic diastolic congestive heart failure 7 Narcotic abuse 03/14/2016 Overview: No further narcotic prescriptions from [facility] Family Medicine. Pt informed 03/13/16.- Angelica [...] Encounters Care Team Description Date Type Specialty Nidia Jarvis RN Urinary Problem 02/22/2019 Nurse Triage Shantell Suarez RN Notification (Health Maintenance) 02/19/2019 Telephone [facility] Preventive Medicine Doctor Unassigned, [place] 02/10/2019 Orders Only Doctor Unassigned, [place] 12/04/2018 Orders Only Tammie Tomas FNP Notification (Health maintenance) 11/28/2018 Telephone [facility] Preventive Medicine from Last 3 Months Immunizations Name [...] Signs Reading Time Taken Comments Vital Sign 131/86 02/26/2019 8:06 AM RESAW MACHINE OPERATOR Blood Pressure 65 02/26/2019 8:06 AM RESAW MACHINE OPERATOR Pulse 36.5 C (97.7 F) 11/12/2018 6:24 PM CDT Temperature 18 02/26/2019 8:06 AM RESAW MACHINE OPERATOR Respiratory Rate 95% 11/12/2018 6:24 PM CDT Oxygen Saturation - - Inhaled Oxygen Concentration 98.2 kg (216 lb 8 oz) 02/26/2019 8:06 AM RESAW MACHINE OPERATOR Weight 170.2 cm (5' 7") 02/26/2019 8:06 AM RESAW MACHINE OPERATOR Height 33.91 02/26/2019 8:06 AM RESAW MACHINE OPERATOR Body Mass Index Plan of Treatment Health [...] Implanted Type Area Manufactur er 04/26/20172017-40 / [id number] / [id number] Dbm Putty Maxxeus 10cc Cts #2018-40 BONE Left: Spin e Community - [id number] Tissue Implanted: Qty: 1 on 11/10/2015 by Services Harrison Wise MD at [facility] 07/07/2020 1234-12 / [id number] / [id number] Cancellous Crushed, Community BONE Left: Spine [facility] Tissue Services (1 10mm) Freeze Tissue Dried 60.0 Cc #1234-12 - S0000 Services Implanted: Qty: 1 on 11/10/2015 by Harrison Wise MD at [facility] 10/16/2021 1235-12 / [id number] / [id number] Cancellous Crushed, Community BONE N/A: Back [facility] Tissue Services (1 10mm) Freeze Tissue Dried 90.0 Cc #1235-12 - Services [id number] Implanted: Qty: 1 on 01/19/2017 by Harrison Wise MD at [facility] 09/22/20182017- / [id number] / [id number] Dbm Putty Maxxeus 10cc [facility] #2018-40 BONE N/A: [facility] [id number] Tissue Implanted: Qty: 1 on 01/19/2017 by Services Harrison Wise MD at [facility] 07/23/2018825651 / Duraseal, Covidien Improved Dural Duraseal N/A: Spine Tyco/Covid Sealant System 5ml #252921 - S00 ien Implanted: Qty: 1 on 08/08/2017 by Harrison Wise MD at [facility] 01/19/2027 [id number] / 0 / [id number] Yareli 4.75 Ccm Ns Curved 70mm Solara YARELI N/A: Back Medtronic Medtronic #[id number] - S0 Implanted: Qty: 2 on 01/19/2017 by Harrison Wise MD at [facility] 11/09/2025 [id number] / 0000 / [id number] Screw Solera 6.5x30mm Medtronic SCREW Left: Spine Medtronic #[id number] - [id number] Implanted: Qty: 2 on 11/10/2015 by Harrison Wsie MD at [facility] 11/09/2025 [id number] / 0000 / [id number] Screw, Medtronic Solara 6.5x45 SCREW Left: Spine Medtronic #[id number] - S0000 Implanted: Qty: 2 on 11/10/2015 by Harrison Wise MD at [facility] 01/19/2027 [id number] / 0 / [id number] Screw Solera 8.5x30mm Mas Medtronic SCREW N/A: Back Medtronic #[id number] Implanted: Qty: 2 on 01/19/2017 by Harrison Wise MD at [facility] 01/19/2027 [id number] / 0 / [id number] Screw, Medtronic Solara 6.5x45 SCREW N/A: Back Medtronic #[id number] - S0 Implanted: Qty: 2 on 01/19/2017 by Harrison Wise MD at [facility] 08/09/2027 [id number] / 00 / 00 Screw, Medtronic # Set Break Off Ti SCREW N/A: Spine Medtronic #[id number] - S00 Implanted: Qty: 3 on 08/08/2017 by Harrison Wise MD at [facility] Description:No charge for any implant per Jesse Watts Medteonic Rep 11/09/2025 [id number] / 000 / [id number] Screw Solera 4.75 Ti Ns Break Off Left: Spine Med tronic Medtronic #[id number] - S000 Implanted: Qty: 4 on 11/10/2015 by Harrison Wise MD at [facility] 11/09/2025 [id number] / 0000 / [id number] Yareli 4.75 Ccm Ns Curved 45mm Solera Left: Spine Me dtronic Medtronic #[id number] - [id number] Implanted: Qty: 2 on 11/10/2015 by Harrison Wise MD at [facility] 01/19/2027 [id number] / 0 / [id number] Screw Solera 4.75 Ti Ns Break Off N/A: Back Med tronic Medtronic #[id number] - S0 Implanted: Qty: 6 on 01/19/2017 by Harrison Wise MD at [facility] 01/19/2027 [id number] / 0 / [id number] Screw Solera 7.5x45mm Medtronic N/A: Back Medtr onic #[id number] - S0 Implanted: Qty: 2 on 01/19/2017 by Harrison Wise MD at [facility] Procedures Comments Procedure Name Priority Date/Time Associated Diag nosis DME/SUPPLY JUSTIFICATION Routine 02/10/2019 12:[address] [facility] PATIENT FINANCIAL Routine 12/04/2018 POLICY 8:08 AM CDT NO SHOW OR MISSED Routine 12/04/2018 APPOINTMENT POLICY 8:06 AM CDT ACKNOWLEDGEMENT from Last 3 Months Results * DME/SUPPLY JUSTIFICATION (02/10/2019 12:01 AM RESAW MACHINE OPERATOR) Specimen Performing Organization Address City/State/Zipcode Ph one Number HIM * [facility] PATIENT FINANCIAL POLICY (12/04/2018 8:08 AM CDT) [...] MARGI X OF [facility] [address] [place] [address] Retail Advance Directives Relationship Healthcare Agent Relationship Communicat ion Name Significant Other Primary healthcare agent [phone] (Mobile) [email or web address] Luanne Carson Child First alternate healthcare agent Rico Christie
--- OUTSIDE RECORDS SUMMARY | 2019-11-04 15:52 | XMS REPORT | Clinical Summary ---
Author Author [facility] - Health Organization [facility] - Health Address Unknown Phone Unavailable Care Team Providers Care Foxer Name Role Phone Gabriella Coyle MD 12 Unavailable Pcp, Patient Does Not Have A PCP [phone] Allergies Comments Active Allergy Reactions Severity Noted [...] times daily. Active fluticasone 50 Use 1 [place] 16 g 0 mcg/actuation nasal in each [...] Added automatically from request for buzz nguyen [id number] Wound dehiscence 08/23/2017 Hardware complicating wound infection 08/18/2017 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 09/21/2016 Overview: Added automatically from request for buzz nguyen [id number] Chronic diastolic congestive heart failure 7 Narcotic [...] Team Description Date Type Specialty Doctor Unassigned, [place] 12/04/2018 Orders Only Tammie Tomas FNP Notification (Health maintenance) 11/28/2018 Telephone [facility] Preventive Medicine Adrian Armas FNP Shortness of breath (Primary Dx) 11/12/2018 Emergency Emergency Medicine Golden Rivera RN HEALTH MAINTENANCE (High ED Utilization) 11/01/2018 Telephone [facility] Preventive Medicine Michela Caldwell RN ED F/U 10/18/2018 Patient Case Management Outreach Dee Larios MD Fall, initial encounter (Primary Dx); Cervicalgia; Dorsalgia; Drug-seeking behavior; History of colon cancer; History of cervical fracture; History of [place] (myocardial infarction); Atherosclerosis of [place] coronary artery of [place] heart without angina pectoris; History of transient [...] Implanted Type Area Manufactur er 04/26/20172017- / [id number] / [id number] Dbm Putty Maxxeus 10cc Cts #2018-40 BONE Left: Spin e [facility] - [id number] Tissue Implanted: Qty: 1 on 11/10/2015 by Harrison Sidhu MD at [facility] 07/07/2020 1234-12 / [id number] / [id number] Cancellous Crushed, Community BONE Left: Spine [facility] Tissue Services (1 10mm) Freeze Tissue Dried 60.0 Cc #1234-12 - [id number] Services Implanted: Qty: 1 on 11/10/2015 by Harrison Wise MD at [facility] 10/16/2021 1235-12 / [id number] / [id number] Cancellous Crushed, Community BONE N/A: [facility] Tissue Services (1 10mm) Freeze Tissue Dried 90.0 Cc #1235-12 - Services [id number] Implanted: Qty: 1 on 01/19/2017 by Harrison Wise MD at [facility] 09/22/20182017-40 / [id number] / [id number] Dbm Putty Maxxeus 10cc Cts #2017-40 BONE N/A: [facility] - [id number] Tissue Implanted: Qty: 1 on 01/19/2017 by Services Harrison Wise MD at [facility] 07/23/2018 [id number] / / Duraseal, Covidien Improved Dural Duraseal N/A: Spine Tyco/Covid Sealant System 5ml #[id number] - S00 ien Implanted: Qty: 1 on 08/08/2017 by Harrison Wise MD at [facility] 01/19/2027 [id number] / 0 / [id number] Yareli 4.75 Ccm Ns Curved 70mm Solara YARELI N/A: Back Medtronic Medtronic #[id number] - S0 Implanted: Qty: 2 on 01/19/2017 by Harrison Wise MD at [facility] 11/09/2025 [id number] / 0000 / [id number] Screw Solera 6.5x30mm Medtronic SCREW Left: Spine Medtronic #[id number] - [id number] Implanted: Qty: 2 on 11/10/2015 by Harrison Wise MD at [facility] 11/09/2025 [id number] / 0000 / [id number] Screw, Medtronic Solara 6.5x45 SCREW Left: Spine Medtronic #[id number] - [id number] Implanted: Qty: 2 on 11/10/2015 by Harrison Wise MD at [facility] 01/19/2027 [id number] / 0 / [id number] Screw Solera 8.5x30mm Mas Medtronic SCREW N/A: Back Medtronic #[id number] Implanted: Qty: 2 on 01/19/2017 by Harrison Wise MD at [facility] 01/19/2027 [id number] / 0 / [id number] Screw, Medtronic Solara 6.5x45 SCREW N/A: Back Medtronic #[id number] - S0 Implanted: Qty: 2 on 01/19/2017 by Harrison Wise MD at [facility] 08/09/2027 [id number] / 00 / 00 Screw, Medtronic # Set Break Off Ti SCREW N/A: Spine Medtronic #[id number] - S00 Implanted: Qty: 3 on 08/08/2017 by Harrison Wise MD at [facility] Description:No charge for any implant per Hortensia Bell 11/09/2025 [id number] / 000 / [id number] Screw Solera 4.75 Ti Ns Break Off Left: Spine Med tronic Medtronic #[id number] - [id number] Implanted: Qty: 4 on 11/10/2015 by Harrison Wise MD at [facility] 11/09/2025 [id number] / 0000 / [id number] Yareli 4.75 Ccm Ns Curved 45mm Solera Left: Spine Me dtronic Medtronic #[id number] - [id number] Implanted: Qty: 2 on 11/10/2015 by Harrison Wise MD at [facility] 01/19/2027 [id number] / 0 / [id number] Screw Solera 4.75 Ti Ns Break Off N/A: Back Med tronic Medtronic #[id number] - S0 Implanted: Qty: 6 on 01/19/2017 by Harrison Wise MD at [facility] 01/19/2027 [id number] / 0 / [id number] Screw Solera 7.5x45mm Medtronic N/A: Back Medtr on #[id number] - S0 Implanted: Qty: 2 on 01/19/2017 by Harrison Wise MD at [facility] Procedures Comments Procedure Name Priority Date/Time Associated Diag george [facility] PATIENT FINANCIAL Routine 12/04/2018 POLICY 8:08 [...] AUTHORIZATIONS from Last 3 Months Results * [facility] PATIENT FINANCIAL POLICY (12/04/2018 8:08 AM [...] BASO x10^3 0.04 0.01 - 0.09 10*3/uL [facility] LABOR ATORY SERVICES Specimen Blood - VENOUS Performing Organization Address City/State/Zipcode Ph one Number [facility]ORAT[facility] CLIA: [id number], [address] [place] [address] [facility] * Basic Metabolic Panel (NA, K, CL, CO2, GLUCOSE, BUN, CREATININE, CA) (11/12/2018 6:41 PM CDT) NA 142 135 - 145 mmol/L [facility] LABORATO RY SERVICES K 3.9 3.5 - 5.0 mmol/L [facility] LABORATO RY SERVICES CL 109 (H) 98 - 108 mmol/L [facility] LABORATOR Y SERVICES CO2 TOTAL 26 23 - 31 mmol/L [facility] AGAP 7 2 - 16 [facility] BUN 12 7 - 23 mg/dL [facility] GLUCOSE 121 (H) 70 - 110 mg/dL [facility] CREATININE 0.84 0.60 - 1.25 mg/dL [facility] LABORAT ORY SERVICES CALCIUM 9.5 8.6 - 10.6 mg/dL [facility] LABORATO RY SERVICES eGFR 94.2 mL/min/1.73m2 [facility] [...] abnormalities in imaging tests). Performing Organization Address City/State/[facility] Ph one Number [facility] CLIA: [id number], [address] [place] [address] [facility] * Troponin I (11/12/2018 6:41 PM CDT) TROPONIN I 0.001 <=0.034 ng/mL [facility] Specimen Blood - VENOUS Narrative Performed At Equal or Less than 0.034 ng/ml---Normal [facility] LABO RATORY Note: Cardiac troponin begins to [...] patient's use of biotin. Performing Organization Address [facility] Ph one Number [facility] CLIA: [id number], [address] [place] [address] [facility] * EKG-12 LEAD (11/12/2018 6:36 PM CDT) Specimen Performing Organization Address [facility] Ph one Number HST * PATIENT LEAVING AGAINST MEDICAL ADVICE (11/12/2018 12:01 AM CDT) Specimen Performing Organization Address [facility]/State/Zipcode Ph one Number [facility] * EMERGENCY SERVICES AGREEMENTS AND AUTHORIZATIONS (11/12/2018 12:01 AM CDT) Only the most recent of 2 results within the time period is included. Specimen Performing Organization Address [facility]/State/[facility] Cent[facility] Ph one Number [facility] * [...] uncinate spurs. These f indings are of basw-aw-zqjbkbrd severity, for example at C4-C5. CT THORACIC [...] No acute fracture or subluxation is identified. Fwdg-dr-kkirkcmd facet arth ropathy seen in the nonfused [...] and uncinate spurs. These findings are of bblk-eh-mcxzlhgr severity, for example at C4-C5. CT THORACIC [...] No acute fracture or subluxation is identified. Aqoi-uw-suozaduj facet arthropathy seen in the nonfused lumbar [...] uncinate spurs. These f indings are of htzm-dg-gwrxwjxq severity, for example at C4-C5. CT THORACIC [...] No acute fracture or subluxation is identified. Hrma-ck-tuvtwbcy facet arth ropathy seen in the nonfused [...] and uncinate spurs. These findings are of kqmo-lv-msmcymcf severity, for example at C4-C5. CT THORACIC [...] No acute fracture or subluxation is identified. Reuu-qc-pgowlflb facet arthropathy seen in the nonfused lumbar [...] uncinate spurs. These f indings are of rhpf-ww-cywxhvnr severity, for example at C4-C5. CT THORACIC [...] No acute fracture or subluxation is identified. Plyr-dp-lhmsafcr facet arth ropathy seen in the nonfused [...] and uncinate spurs. These findings are of qstk-yd-vfkkrkts severity, for example at C4-C5. CT THORACIC [...] No acute fracture or subluxation is identified. Abll-zd-jegqdsap facet arthropathy seen in the nonfused lumbar [...] uncinate spurs. These f indings are of kjor-hh-yxfafjlf severity, for example at C4-C5. CT THORACIC [...] No acute fracture or subluxation is identified. Yjoq-tr-mluapcgz facet arth ropathy seen in the nonfused [...] and uncinate spurs. These findings are of eahf-wj-vzxupdvf severity, for example at C4-C5. CT THORACIC [...] No acute fracture or subluxation is identified. Lfij-qv-wvnpjdij facet arthropathy seen in the nonfused lumbar [...] Plan / Dates Group Medicaid [employer] [place] AMER[employer] xxxxxxxxx 2015-P [facility] [address] [place] [address] Retail Advance Directives Relationship Healthcare Agent Relationship Communicat ion Name Significant Other Primary healthcare agent [phone] (Home) [email or web address] Luanne Carson Child First alternate healthcare agent Rico Christie
--- OUTSIDE RECORDS SUMMARY | 2019-11-04 15:52 | XMS REPORT | Clinical Summary ---
Author Author [facility] - Health Organization [facility] - Health Address Unknown Phone Unavailable Care Team Providers Care Route Sales Trainee Name Role Phone Gabriella Coyle MD 12 Unavailable Pcp, Patient Does Not Have A PCP [phone] Allergies Comments Active Allergy Reactions Severity Noted [...] times daily. Active fluticasone 50 Use 1 [place] 16 g 0 mcg/actuation nasal in each [...] Added automatically from request for buzz nguyen [id number] Wound dehiscence 08/23/2017 Hardware complicating wound infection 08/18/2017 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 09/21/2016 Overview: Added automatically from request for buzz nguyen [id number] Chronic diastolic congestive heart failure 7 Narcotic abuse 03/14/2016 Overview: No further narcotic prescriptions from [facility] Family Medicine. Pt informed 03/13/16.- Angelica Valero [...] Team Description Date Type Specialty Doctor Unassigned, [place] 12/04/2018 Orders Only Tammie Tomas FNP Notification (Health maintenance) 11/28/2018 Telephone [facility] Preventive Medicine Adrian Armas FNP Shortness of breath (Primary Dx) 11/12/2018 Emergency Emergency Medicine Golden Rivera RN HEALTH MAINTENANCE (High ED Utilization) 11/01/2018 Telephone [facility] Preventive Medicine Michela Caldwell RN ED F/U 10/18/2018 Patient Case Management Outreach Dee Larios MD Fall, initial encounter (Primary Dx); Cervicalgia; Dorsalgia; Drug-seeking behavior; History of colon cancer; History of cervical fracture; History of [place] (myocardial infarction); Atherosclerosis of [place] coronary artery of [place] heart without angina pectoris; History of transient [...] Implanted Type Area Manufactur er 04/26/20172017- / [id number] / [id number] Dbm Putty Maxxeus 10cc Cts #2018-40 BONE Left: Spin e [facility] - [id number] Tissue Implanted: Qty: 1 on 11/10/2015 by Harrison Sidhu MD at [facility] 07/07/2020 1234-12 / [id number] / [id number] Cancellous Crushed, Community BONE Left: Spine [facility] Tissue Services (1 10mm) Freeze Tissue Dried 60.0 Cc #1234-12 - [id number] Services Implanted: Qty: 1 on 11/10/2015 by Harrison Wise MD at [facility] 10/16/2021 1235-12 / [id number] / [id number] Cancellous Crushed, Community BONE N/A: [facility] Tissue Services (1 10mm) Freeze Tissue Dried 90.0 Cc #1235-12 - Services [id number] Implanted: Qty: 1 on 01/19/2017 by Harrison Wise MD at [facility] 09/22/20182017-40 / [id number] / [id number] Dbm Putty Maxxeus 10cc Cts #2017-40 BONE N/A: [facility] - [id number] Tissue Implanted: Qty: 1 on 01/19/2017 by Services Harrison Wise MD at [facility] 07/23/2018 [id number] / / Duraseal, Covidien Improved Dural Duraseal N/A: Spine Tyco/Covid Sealant System 5ml #530339 - S00 ien Implanted: Qty: 1 on 08/08/2017 by Harrison Wise MD at [facility] 01/19/2027 [id number] / 0 / [id number] Yareli 4.75 Ccm Ns Curved 70mm Solara YARELI N/A: Back Medtronic Medtronic #[id number] - S0 Implanted: Qty: 2 on 01/19/2017 by Harrison Wise MD at [facility] 11/09/2025 [id number] / 0000 / [id number] Screw Solera 6.5x30mm Medtronic SCREW Left: Spine Medtronic #[id number] - [id number] Implanted: Qty: 2 on 11/10/2015 by Harrison Wise MD at [facility] 11/09/2025 [id number] / 0000 / [id number] Screw, Medtronic Solara 6.5x45 SCREW Left: Spine Medtronic #[id number] - [id number] Implanted: Qty: 2 on 11/10/2015 by Harrison Wise MD at [facility] 01/19/2027 [id number] / 0 / [id number] Screw Solera 8.5x30mm Mas Medtronic SCREW N/A: Back Medtronic #[id number] Implanted: Qty: 2 on 01/19/2017 by Harrison Wise MD at [facility] 01/19/2027 [id number] / 0 / [id number] Screw, Medtronic Solara 6.5x45 SCREW N/A: Back Medtronic #[id number] - S0 Implanted: Qty: 2 on 01/19/2017 by Harrison Wise MD at [facility] 08/09/2027 [id number] / 00 / 00 Screw, Medtronic # Set Break Off Ti SCREW N/A: Spine Medtronic #[id number] - S00 Implanted: Qty: 3 on 08/08/2017 by Harrison Wise MD at [facility] Description:No charge for any implant per Hortensia Bell 11/09/2025 [id number] / 000 / [id number] Screw Solera 4.75 Ti Ns Break Off Left: Spine Med tronic Medtronic #[id number] - S000 Implanted: Qty: 4 on 11/10/2015 by Harrison Wise MD at [facility] 11/09/2025 [id number] / 0000 / [id number] Yareli 4.75 Ccm Ns Curved 45mm Solera Left: Spine Me dtronic Medtronic #[id number] - S0000 Implanted: Qty: 2 on 11/10/2015 by Harrison Wise MD at [facility] 01/19/2027 [id number] / 0 / [id number] Screw Solera 4.75 Ti Ns Break Off N/A: Back Med tronic Medtronic #[id number] - S0 Implanted: Qty: 6 on 01/19/2017 by Harrison Wise MD at [facility] 01/19/2027 [id number] / 0 / [id number] Screw Solera 7.5x45mm Medtronic N/A: Back Medtr on #[id number] - S0 Implanted: Qty: 2 on 01/19/2017 by Harrison Wise MD at [facility] Procedures Comments Procedure Name Priority Date/Time Associated Diag george [facility] PATIENT FINANCIAL Routine 12/04/2018 POLICY 8:08 AM [...] AUTHORIZATIONS from Last 3 Months Results * [facility] PATIENT FINANCIAL POLICY (12/04/2018 8:08 AM CDT) [...] BASO x10^3 0.04 0.01 - 0.09 10*3/uL [facility] LABOR ATORY SERVICES Specimen Blood - VENOUS Performing Organization Address City/State/Zipcode Ph one Number [facility]OR[facility]ORY SERVICES CLIA: [id number], [address] [place] [address] [facility] * Basic Metabolic Panel (NA, K, CL, CO2, GLUCOSE, BUN, CREATININE, CA) (11/12/2018 6:41 PM CDT) NA 142 135 - 145 mmol/L [facility] LABORATO RY SERVICES K 3.9 3.5 - 5.0 mmol/L [facility] LABORATO RY SERVICES CL 109 (H) 98 - 108 mmol/L [facility] LABORATOR Y SERVICES CO2 TOTAL 26 23 - 31 mmol/L [facility] LABORATORY SERVICES AGAP 7 2 - 16 [facility]ORATORY SERVICES BUN 12 7 - 23 mg/dL [facility] LABORATORY SERVICES GLUCOSE 121 (H) 70 - 110 mg/dL [facility] LABORATORY SERVICES CREATININE 0.84 0.60 - 1.25 mg/dL [facility] LABORAT ORY SERVICES CALCIUM 9.5 8.6 - 10.6 mg/dL [facility] LABORATO RY SERVICES eGFR 94.2 mL/min/1.73m2 [facility] LABORATORY Calculation SERVICES (Non-) eGFR 114.2 mL/min/1.73m2 [facility] LABORATORY Calculation SERVICES () Specimen Blood - VENOUS Narrative Performed At Association of Glomerular Filtration Rate (GFR) and S taging of Kidney Disease* [facility] LABORATORY + + +------ + SERVICES | [...] abnormalities in imaging tests). Performing Organization Address City/State/[facility] Cent[facility] Ph one Number [facility] LABORATORY SERVICES CLIA: [id number], [address] [place] [address] [facility] * Troponin I (11/12/2018 6:41 PM CDT) TROPONIN I 0.001 <=0.034 ng/mL [facility] LABORATORY SERVICES Specimen Blood - VENOUS Narrative Performed At Equal or Less than 0.034 ng/ml---Normal [facility] LABO RATORY Note: Cardiac troponin begins to [...] patient's use of biotin. Performing Organization Address [facility] Ph one Number [facility] LABORATORY SERVICES CLIA: [id number], [address] [place] [address] [facility] * EKG-12 LEAD (11/12/2018 6:36 PM CDT) Specimen Performing Organization Address [facility] Ph one Number HST * PATIENT LEAVING AGAINST MEDICAL ADVICE (11/12/2018 12:01 AM CDT) Specimen Performing Organization Address [facility]/State/Zipcode Ph one Number HIM * EMERGENCY SERVICES AGREEMENTS AND AUTHORIZATIONS (11/12/2018 12:01 AM CDT) Only the most recent of 2 results within the time period is included. Specimen Performing Organization Address [facility]/State/[facility] Cent[facility] Ph one Number [facility] * [...] uncinate spurs. These f indings are of pygy-jx-dnujtpuv severity, for example at C4-C5. CT THORACIC [...] No acute fracture or subluxation is identified. Xsdn-rf-vvrmxxop facet arth ropathy seen in the nonfused [...] and uncinate spurs. These findings are of kmtc-yu-zrktubjm severity, for example at C4-C5. CT THORACIC [...] No acute fracture or subluxation is identified. Sdli-vu-dfzndhvx facet arthropathy seen in the nonfused lumbar [...] uncinate spurs. These f indings are of uhwj-fr-dxaneiwx severity, for example at C4-C5. CT THORACIC [...] No acute fracture or subluxation is identified. Psvh-fv-hlqovoaq facet arth ropathy seen in the nonfused [...] and uncinate spurs. These findings are of bxvs-qd-sxlgxnpz severity, for example at C4-C5. CT THORACIC [...] No acute fracture or subluxation is identified. Zmww-pw-joobkngm facet arthropathy seen in the nonfused lumbar [...] uncinate spurs. These f indings are of jkgf-qm-siqgryyp severity, for example at C4-C5. CT THORACIC [...] No acute fracture or subluxation is identified. Vklx-wu-mpzwxkxu facet arth ropathy seen in the nonfused [...] and uncinate spurs. These findings are of uiez-ys-vjruyefv severity, for example at C4-C5. CT THORACIC [...] No acute fracture or subluxation is identified. Ibdr-od-wcwvtrji facet arthropathy seen in the nonfused lumbar [...] uncinate spurs. These f indings are of tkmw-yz-veddeydf severity, for example at C4-C5. CT THORACIC [...] No acute fracture or subluxation is identified. Ksxb-ns-qlzbyctu facet arth ropathy seen in the nonfused [...] and uncinate spurs. These findings are of mcgd-xc-fiyenhhi severity, for example at C4-C5. CT THORACIC [...] No acute fracture or subluxation is identified. Lbgh-au-khvludrk facet arthropathy seen in the nonfused lumbar [...] Plan / Dates Group Medicaid [employer] [place] [employer] xxxxxxxxx 2015-P [facility] [address] [place] [address] Retail Advance Directives Relationship Healthcare Agent Relationship Communicat ion Name Significant Other Primary healthcare agent [phone] (Home) [email or web address] Luanne Carson Child First alternate healthcare agent Rico Christie
--- OUTSIDE RECORDS SUMMARY | 2019-11-04 15:52 | XMS REPORT | Clinical Summary ---
Author Author [facility] - Health Organization [facility] - Health Address Unknown Phone Unavailable Care Team Providers Care Locate Technician Name Role Phone Gabriella Coyle MD 12 Unavailable Pcp, Patient Does Not Have A PCP [phone] Allergies Comments Active Allergy Reactions Severity Noted [...] times daily. Active fluticasone 50 Use 1 [place] 16 g 0 mcg/actuation nasal in each [...] Added automatically from request for gerber wendy [id number] Wound dehiscence 08/23/2017 Hardware complicating wound infection 08/18/2017 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 09/21/2016 Overview: Added automatically from request for gerber wendy [id number] Chronic diastolic congestive heart failure 7 Narcotic abuse 03/14/2016 Overview: No further narcotic prescriptions from [facility] Family Medicine. Pt informed 03/13/16.- [...] Maintenance) 02/19/2019 Telephone Public Health & [facility] Preventive Medicine Doctor Unassigned, Bas[place] 02/10/2019 Orders Only Doctor Unassigned, Basye 12/04/2018 Orders Only Tammie Tomas FNP Notification (Health maintenance) 11/28/2018 Telephone Public [facility] & [facility] Preventive Medicine from Last 3 Months Immunizations [...] Comments Vital Sign 131/86 02/26/2019 8:06 AM STORE CLERK Blood Pressure 65 02/26/2019 8:06 AM STORE CLERK Pulse 36.5 C (97.7 F) 11/12/2018 6:24 PM CDT Temperature 18 02/26/2019 8:06 AM STORE CLERK Respiratory Rate 95% 11/12/2018 6:24 PM CDT Oxygen Saturation - - Inhaled Oxygen Concentration 98.2 kg (216 lb 8 oz) 02/26/2019 8:06 AM STORE CLERK Weight 170.2 cm (5' 7") 02/26/2019 8:06 AM STORE CLERK Height 33.91 02/26/2019 8:06 AM STORE CLERK Body Mass Index Plan of Treatment Health [...] Implanted Type Area Manufactur er 04/26/20172017-40 / [id number] / [id number] Dbm Putty Maxxeus 10cc Cts #2018-40 BONE Left: Spin e Community - [id number] Tissue Implanted: Qty: 1 on 11/10/2015 by Services Harrison Wise MD at [facility] 07/07/2020 1234-12 / [id number] / [id number] Cancellous Crushed, Community BONE Left: Spine Community Tissue Services (1 10mm) Freeze Tissue Dried 60.0 Cc #1234-12 - S0000 Services Implanted: Qty: 1 on 11/10/2015 by Harrison Wise MD at [facility] 10/16/2021 1235-12 / [id number] / [id number] Cancellous Crushed, Community BONE N/A: Back Community Tissue Services (1 10mm) Freeze Tissue Dried 90.0 Cc #1235-12 - Services [id number] Implanted: Qty: 1 on 01/19/2017 by Harrison Wise MD at [facility] 09/22/20182017- / [id number] / [id number] Dbm Putty Maxxeus 10cc [facility] #2018-40 BONE N/A: [facility] [id number] Tissue Implanted: Qty: 1 on 01/19/2017 by Services Harrison Wise MD at [facility] 07/23/2018309207 / Duraseal, Covidien Improved Dural Duraseal N/A: Spine Tyco/Covid Sealant System 5ml #[id number] - S00 ien Implanted: Qty: 1 on 08/08/2017 by Harrison Wise MD at [facility] 01/19/2027 [id number] / 0 / [id number] Yareli 4.75 Ccm Ns Curved 70mm Solara YARELI N/A: Back Medtronic Medtronic #[id number] - S0 Implanted: Qty: 2 on 01/19/2017 by Harrison Wise MD at [facility] 11/09/2025 [id number] / 0000 / [id number] Screw Solera 6.5x30mm Medtronic SCREW Left: Spine Medtronic #[id number] - S0000 Implanted: Qty: 2 on 11/10/2015 by Harrison Wise MD at [facility] 11/09/2025 [id number] / 0000 / [id number] Screw, Medtronic Solara 6.5x45 SCREW Left: Spine Medtronic #[id number] - S0000 Implanted: Qty: 2 on 11/10/2015 by Harrison Wise MD at [facility] 01/19/2027 [id number] / 0 / [id number] Screw Solera 8.5x30mm Mas Medtronic SCREW N/A: Back Medtronic #[id number] Implanted: Qty: 2 on 01/19/2017 by Harrison Wise MD at [facility] 01/19/2027 [id number] / 0 / [id number] Screw, Medtronic Solara 6.5x45 SCREW N/A: Back Medtronic #[id number] - S0 Implanted: Qty: 2 on 01/19/2017 by Harrison Wise MD at [facility] 08/09/2027 [id number] / 00 / 00 Screw, Medtronic # Set Break Off Ti SCREW N/A: Spine Medtronic #[id number] - S00 Implanted: Qty: 3 on 08/08/2017 by Harrison Wise MD at [facility] Description:No charge for any implant per Jesse Watts Medteonic Rep 11/09/2025 [id number] / 000 / [id number] Screw Solera 4.75 Ti Ns Break Off Left: Spine Med tronic Medtronic #[id number] - S000 Implanted: Qty: 4 on 11/10/2015 by Harrison Wise MD at [facility] 11/09/2025 [id number] / 0000 / [id number] Yareli 4.75 Ccm Ns Curved 45mm Solera Left: Spine Me dtronic Medtronic #[id number] - S0000 Implanted: Qty: 2 on 11/10/2015 by Harrison Wise MD at [facility] 01/19/2027 [id number] / 0 / [id number] Screw Solera 4.75 Ti Ns Break Off N/A: Back Med tronic Medtronic #[id number] - S0 Implanted: Qty: 6 on 01/19/2017 by Harrison Wise MD at [facility] 01/19/2027 [id number] / 0 / [id number] Screw Solera 7.5x45mm Medtronic N/A: Back Medtr onic #[id number] - S0 Implanted: Qty: 2 on 01/19/2017 by Harrison Wise MD at [facility] Procedures Comments Procedure Name Priority Date/Time Associated Diag nosis DME/SUPPLY JUSTIFICATION Routine 02/10/2019 12:01 AM [facility] PATIENT FINANCIAL Routine 12/04/2018 POLICY 8:08 AM CDT NO SHOW OR MISSED Routine 12/04/2018 APPOINTMENT POLICY 8:06 AM CDT ACKNOWLEDGEMENT from Last 3 Months Results * DME/SUPPLY JUSTIFICATION (02/10/2019 12:01 AM STORE CLERK) Specimen Performing Organization Address City/State/Zipcode Ph one [...] Plan / Dates Group Medicaid [employer] [place] AMERIGROUP xxxxxxxxx 2015-P P O MARGI X OF [facility] [address] [place] [address] Retail Advance Directives Relationship Healthcare Agent Relationship Communicat ion Name Significant Other Primary healthcare agent [phone] (Mobile) [email or web address] Luanne Carson Child First alternate healthcare agent Rico Christie
--- OUTSIDE RECORDS SUMMARY | 2019-11-04 15:52 | XMS REPORT | Clinical Summary ---
Author Author [facility] - Health Organization [facility] - Health Address Unknown Phone Unavailable Care Team Providers Care Blind Aide Name Role Phone Gabriella Coyle MD 12 Unavailable Pcp, Patient Does Not Have A PCP [phone] Allergies Comments Active Allergy Reactions Severity Noted [...] times daily. Active fluticasone 50 Use 1 [place] 16 g 0 mcg/actuation nasal in each [...] as needed for Pain (scale 1-3). Active diazePAM 5 mg Take 1 tablet 60 tablet 0 tabletIndications: by mouth 2 9 Generalized anxiety (two) times disorder daily. Active venlafaxine XR 150 mg 24 Take 1 30 capsule 1 1 hr capsuleIndications: capsule by 9 Depressive disorder, mouth daily Generalized anxiety with disorder breakfast. Active Problems Problem Noted Date Infection 09/28/2017 Chronic midline low back pain without sciatica 09/27 Overview: Added automatically from request for buzz nguyen [id number] Wound dehiscence 08/23/2017 Hardware complicating wound infection 08/18/2017 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 09/21/2016 Overview: Added automatically from request for buzz nguyen [id number] Chronic diastolic congestive heart failure 7 Narcotic abuse 03/14/2016 Overview: No further narcotic prescriptions from [facility] Family Medicine. Pt informed 03/13/16.- Angelica [...] Team Description Date Type Specialty Doctor Unassigned, [place] 12/04/2018 Orders Only Tammie Tomas FNP Notification (Health maintenance) 11/28/2018 Telephone Public Health & Gen [facility] Preventive Medicine Adrian Armas FNP Shortness of breath (Primary Dx) 11/12/2018 Emergency Emergency Medicine Golden Rivera, RN HEALTH MAINTENANCE (High ED Utilization) 11/01/2018 Telephone [facility] Preventive Medicine from Last 3 Months Immunizations [...] Implanted Type Area Manufactur er 04/26/20172017-40 / [id number] / [id number] Dbm Putty Maxxeus 10cc Cts #2018-40 BONE Left: Spin e Community - [id number] Tissue Implanted: Qty: 1 on 11/10/2015 by Services Harrison Wise MD at [facility] 07/07/2020 1234-12 / [id number] / [id number] Cancellous Crushed, Community BONE Left: Spine Community Tissue Services (1 10mm) Freeze Tissue Dried 60.0 Cc #1234-12 - S0000 Services Implanted: Qty: 1 on 11/10/2015 by Harrison Wise MD at [facility] 10/16/2021 1235-12 / [id number] / [id number] Cancellous Crushed, Community BONE N/A: Back Community Tissue Services (1 10mm) Freeze Tissue Dried 90.0 Cc #1235-12 - Services [id number] Implanted: Qty: 1 on 01/19/2017 by Harrison Wise MD at [facility] 09/22/2018 2018-40 / [id number] / [id number] Dbm Putty Maxxeus 10cc [facility] #2018-40 BONE N/A: [facility] [id number] Tissue Implanted: Qty: 1 on 01/19/2017 by Services Harrison Wise MD at [facility] 07/23/2018 [id number] / / 00 Duraseal, Covidien Improved Dural Duraseal N/A: Spine Tyco/Covid Sealant System 5ml #134231 - S00 ien Implanted: Qty: 1 on 08/08/2017 by Harrison Wise MD at [facility] 01/19/2027 [id number] / 0 / [id number] Yareli 4.75 Ccm Ns Curved 70mm Solara YARELI N/A: Back Medtronic Medtronic #[id number] - S0 Implanted: Qty: 2 on 01/19/2017 by Harrison Wise MD at [facility] 11/09/2025 [id number] / 0000 / [id number] Screw Solera 6.5x30mm Medtronic SCREW Left: Spine Medtronic #[id number] - S0000 Implanted: Qty: 2 on 11/10/2015 by Harrison Wise MD at [facility] 11/09/2025 [id number] / 0000 / [id number] Screw, Medtronic Solara 6.5x45 SCREW Left: Spine Medtronic #[id number] - S0000 Implanted: Qty: 2 on 11/10/2015 by Harrison Wise MD at [facility] 01/19/2027 [id number] / 0 / [id number] Screw Solera 8.5x30mm Mas Medtronic SCREW N/A: Back Medtronic #[id number] Implanted: Qty: 2 on 01/19/2017 by Harrison Wise MD at [facility] 01/19/2027 [id number] / 0 / [id number] Screw, Medtronic Solara 6.5x45 SCREW N/A: Back Medtronic #[id number] - S0 Implanted: Qty: 2 on 01/19/2017 by Harrison Wise MD at [facility] 08/09/2027 [id number] / 00 / 00 Screw, Medtronic # Set Break Off Ti SCREW N/A: Spine Medtronic #[id number] - S00 Implanted: Qty: 3 on 08/08/2017 by Harrison Wise MD at [facility] Description:No charge for any implant per Jesse Watts Medteonic Rep 11/09/2025 [id number] / 000 / [id number] Screw Solera 4.75 Ti Ns Break Off Left: Spine Med tronic Medtronic #[id number] - S000 Implanted: Qty: 4 on 11/10/2015 by Harrison Wise MD at [facility] 11/09/2025 [id number] / 0000 / [id number] Yareli 4.75 Ccm Ns Curved 45mm Solera Left: Spine Me dtronic Medtronic #[id number] - S0000 Implanted: Qty: 2 on 11/10/2015 by Harrison Wise MD at [facility] 01/19/2027 [id number] / 0 / [id number] Screw Solera 4.75 Ti Ns Break Off N/A: Back Med tronic Medtronic #[id number] - S0 Implanted: Qty: 6 on 01/19/2017 by Harrison Wise MD at [facility] 01/19/2027 [id number] / 0 / [id number] Screw Solera 7.5x45mm Medtronic N/A: Back Medtr onic #[id number] - S0 Implanted: Qty: 2 on 01/19/2017 by Harrison Wise MD at [facility] Procedures Comments Procedure Name Priority Date/Time Associated Damir vazquez [facility] PATIENT FINANCIAL Routine 12/04/2018 POLICY 8:08 [...] Routine 11/12/2018 MEDICAL ADVICE 12:01 AM CDT from Last 3 Months Results * [facility] PATIENT FINANCIAL POLICY (12/04/2018 8:08 AM CDT) Specimen Performing Organization Address City/[facility] Ph one Number HIM * NO SHOW OR MISSED APPOINTMENT POLICY ACKNOWLEDGEMENT (12/04/2018 8:06 AM CDT) Specimen Performing Organization Address City/[facility] Ph one Number HIM * CBC WITH DIFFERENTIAL (11/12/2018 6:41 PM CDT) WBC 7.15 4.20 - 10.70 [facility] 10*3/L SERVICES RBC 4.51 4.26 - 5.52 10*6/L [facility] HGB 12.3 12.2 - 16.4 g/dL [facility] RY [facility] HCT 38.3 (L) 38.4 - 49.3 % [facility] MCV 84.9 81.7 - 95.6 fL [facility] MCH 27.3 26.1 - 32.7 pg [facility] MCHC 32.1 31.2 - 35.0 g/dL [facility] RDW-SD 45.9 38.5 - [...] Performing Organization Address City/State/Zipcode Ph one Number [facility] CLIA: [id number], [address] [place] [address] [facility] * Basic Metabolic Panel (NA, K, CL, CO2, GLUCOSE, BUN, CREATININE, CA) (11/12/2018 6:41 PM CDT) NA 142 135 - 145 mmol/L [facility] K 3.9 3.5 - 5.0 mmol/L [facility] CL 109 (H) 98 - 108 mmol/L [facility] CO2 TOTAL 26 23 - 31 mmol/L [facility] AGAP 7 2 - 16 [facility] BUN 12 7 - 23 mg/dL [facility] GLUCOSE 121 (H) 70 - 110 mg/dL [facility] CREATININE 0.84 0.60 - 1.25 mg/dL [facility] CALCIUM 9.5 8.6 - 10.6 mg/dL [facility] eGFR 94.2 mL/min/1.73m2 [facility] Calculation SERVICES (Non-) eGFR 114.2 mL/min/1.73m2 [facility] Calculation SERVICES () Specimen Blood - VENOUS Narrative Performed At [facility] of Glomerular Filtration Rate (GFR) and S taging of Kidney Disease* [facility] + + +------ + SERVICES [...] Performing Organization Address City/State/Zipcode Ph one Number [facility] CLIA: [id number], [address] [place] [address] [facility] * Troponin I (11/12/2018 6:41 PM CDT) TROPONIN I 0.001 <=0.034 ng/mL [facility] Specimen Blood - VENOUS Narrative Performed At Equal or Less than 0.034 ng/ml---Normal [facility] Note: Cardiac troponin begins [...] Performing Organization Address City/State/Zipcode Ph one Number [facility] CLIA: [id number], [address] [place] [address] * EKG-12 LEAD (11/12/2018 6:36 PM CDT) Specimen Performing Organization Address City/State/Zipcode Ph one Number [facility] * PATIENT LEAVING AGAINST MEDICAL ADVICE (11/12/2018 12:01 AM CDT) Specimen Performing Organization Address City/State/Zipcode Ph one Number HIM * EMERGENCY SERVICES AGREEMENTS AND AUTHORIZATIONS (11/12/2018 12:01 AM CDT) Specimen Performing Organization Address City/State/Zipcode Ph one Number HIM from Last 3 Months Insurance Type Payer Benefit Subscriber ID Effective Phone Address Plan / Dates Group Medicaid [employer] [place] AMERIGROUP xxxxxxxxx 2015-P P O MARGI [facility] [address] [place] [address] Retail Advance Directives Relationship Healthcare Agent Relationship Communicat ion Name Significant Other Primary healthcare agent [phone] (Home) [email or web address] Luanne Carson Child First alternate healthcare agent Rico Christie
--- OUTSIDE RECORDS SUMMARY | 2019-11-04 15:52 | XMS REPORT | Clinical Summary ---
Author Author [facility] - Health Organization [facility] - Health Address Unknown Phone Unavailable Care Team Providers Care Baking Powder Mixer Name Role Phone Gabriella Coyle MD 12 Unavailable Pcp, Patient Does Not Have A PCP [phone] Allergies Comments Active Allergy Reactions Severity Noted [...] times daily. Active fluticasone 50 Use 1 [place] 16 g 0 mcg/actuation nasal in each [...] 150 mg 24 Take 1 30 capsule 0 1 hr capsuleIndications: capsule by 9 Generalized anxiety mouth daily disorder with breakfast. Active Problems Problem Noted Date Infection 09/28/2017 Chronic midline low back pain without sciatica 09/27 Overview: Added automatically from request for gerber wendy [id number] Wound dehiscence 08/23/2017 Hardware complicating wound infection 08/18/2017 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 09/21/2016 Overview: [id number] Chronic diastolic congestive heart failure 7 Narcotic [...] Team Description Date Type Specialty Doctor Unassigned, [place] 12/04/2018 Orders Only Tammie Tomas FNP Notification (Health maintenance) 11/28/2018 Telephone Public Health & [facility] Preventive Medicine from Last 3 [...] ot Implanted Type Area Manufactur er 04/26/2017 2018-40 / [id number] / [id number] Dbm Putty Maxxeus 10cc Cts #2018-40 BONE Left: Spin e Community - [id number] Tissue Implanted: Qty: 1 on 11/10/2015 by Services Harrison Wise MD at [facility] 07/07/2020 1234-12 / [id number] / [id number] Cancellous Crushed, Community BONE Left: Spine Community Tissue Services (1 10mm) Freeze Tissue Dried 60.0 Cc #1234-12 - S0000 Services Implanted: Qty: 1 on 11/10/2015 by Harrison Wise MD at [facility] 10/16/2021 1235-12 / [id number] / [id number] Cancellous Crushed, Community BONE N/A: Back Community Tissue Services (1 10mm) Freeze Tissue Dried 90.0 Cc #1235-12 - Services [id number] Implanted: Qty: 1 on 01/19/2017 by Harrison Wise MD at [facility] 09/22/20182017-40 / [id number] / [id number] Dbm Putty Maxxeus 10cc Cts #2018-40 BONE N/A: [facility] [id number] Tissue Implanted: Qty: 1 on 01/19/2017 by Services Harrison Wise MD at [facility] 07/23/2018 [id number] / / Duraseal, Covidien Improved Dural Duraseal N/A: Spine Tyco/Covid Sealant System 5ml #737835 - S00 ien Implanted: Qty: 1 on 08/08/2017 by Harrison Wise MD at [facility] 01/19/2027 [id number] / 0 / [id number] Yareli 4.75 Ccm Ns Curved 70mm Solara YARELI N/A: Back Medtronic Medtronic #[id number] - S0 Implanted: Qty: 2 on 01/19/2017 by Harrison Wise MD at [facility] 11/09/2025 [id number] / 0000 / [id number] Screw Solera 6.5x30mm Medtronic SCREW Left: Spine Medtronic #[id number] - S0000 Implanted: Qty: 2 on 11/10/2015 by Harrison Wise MD at [facility] 11/09/2025 [id number] / 0000 / [id number] Screw, Medtronic Solara 6.5x45 SCREW Left: Spine Medtronic #[id number] - S0000 Implanted: Qty: 2 on 11/10/2015 by Harrison Wise MD at [facility] 01/19/2027 [id number] / 0 / [id number] Screw Solera 8.5x30mm Mas Medtronic SCREW N/A: Back Medtronic #[id number] Implanted: Qty: 2 on 01/19/2017 by Harrison Wise MD at [facility] 01/19/2027 [id number] / 0 / [id number] Screw, Medtronic Solara 6.5x45 SCREW N/A: Back Medtronic #[id number] - S0 Implanted: Qty: 2 on 01/19/2017 by Harrison Wise MD at [facility] 08/09/2027 [id number] / 00 / 00 Screw, Medtronic # Set Break Off Ti SCREW N/A: Spine Medtronic #[id number] - S00 Implanted: Qty: 3 on 08/08/2017 by Harrison Wise MD at [facility] Description:No charge for any implant per Cordell Bell[employer] Rep 11/09/2025 [id number] / 000 / [id number] Screw Solera 4.75 Ti Ns Break Off Left: Spine Med tronic Medtronic #[id number] - S000 Implanted: Qty: 4 on 11/10/2015 by Harrison Wise MD at [facility] 11/09/2025 [id number] / 0000 / [id number] Yareli 4.75 Ccm Ns Curved 45mm Solera Left: Spine Me dtronic Medtronic #[id number] - S0000 Implanted: Qty: 2 on 11/10/2015 by Harrison Wise MD at [facility] 01/19/2027 [id number] / 0 / [id number] Screw Solera 4.75 Ti Ns Break Off N/A: Back Med tronic Medtronic #[id number] - S0 Implanted: Qty: 6 on 01/19/2017 by Harrison Wise MD at [facility] 01/19/2027 [id number] / 0 / [id number] Screw Solera 7.5x45mm Medtronic N/A: Back Medtr onic #[id number] - S0 Implanted: Qty: 2 on 01/19/2017 by Harrison Wise MD at [facility] Procedures Comments Procedure Name Priority Date/Time Associated Diag nosis [facility] PATIENT FINANCIAL Routine 12/04/2018 POLICY 8:08 AM CDT NO SHOW OR MISSED Routine 12/04/2018 APPOINTMENT POLICY 8:06 AM CDT ACKNOWLEDGEMENT from Last 3 Months Results * [facility] [...] Plan / Dates Group Medicaid [employer] [place] AMER[employer] xxxxxxxxx 2015-P Chanel KISER [place] resent [address] [place] [address] [place] [address] Advance Directives Relationship Healthcare Agent Relationship Communicat ion Name Significant Other Primary healthcare agent [phone] (Mobile) [email or web address] Luanne Carson Child First alternate healthcare agent Rico Christie
--- OUTSIDE RECORDS SUMMARY | 2019-11-04 15:52 | XMS REPORT | Clinical Summary ---
Author Author [facility] - Health Organization [facility] - [facility] Address Unknown Phone Unavailable Care Team Providers Care Master Ship Name Role Phone Gabriella Coyle MD 12 Unavailable Pcp, Patient Does Not Have A PCP [phone] Allergies Comments Active Allergy Reactions Severity Noted [...] times daily. Active fluticasone 50 Use 1 [place] 16 g 0 mcg/actuation nasal in each [...] Added automatically from request for gerber wendy [id number] Wound dehiscence 08/23/2017 Hardware complicating wound infection 08/18/2017 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 09/21/2016 Overview: [id number] Chronic diastolic congestive heart failure 7 Narcotic abuse 03/14/2016 Overview: No further narcotic prescriptions from [facility] Family Medicine. Pt informed 03/13/16.- Angelica [...] Team Description Date Type Specialty Doctor Unassigned, [place] 12/04/2018 Orders Only Tammie Tomas FNP Notification (Health maintenance) 11/28/2018 Telephone Public Health [facility] Preventive Medicine Adrian Armas FNP Shortness of breath (Primary Dx) 11/12/2018 Emergency Emergency Medicine from Last 3 Months [...] Type Area Manufactur er 04/26/2017 2018-40 / [id number] / [id number] Dbm Putty Maxxeus 10cc Cts #2018-40 BONE Left: Spin e Community - [id number] Tissue Implanted: Qty: 1 on 11/10/2015 by Services Harrison Wise MD at [facility] 07/07/2020 1234-12 / [id number] / [id number] Cancellous Crushed, Community BONE Left: Spine Community Tissue Services (1 10mm) Freeze Tissue Dried 60.0 Cc #1234-12 - [id number] Services Implanted: Qty: 1 on 11/10/2015 by Harrison Wise MD at [facility] 10/16/2021 1235-12 / [id number] / [id number] Cancellous Crushed, Community BONE N/A: Back Community Tissue Services (1 10mm) Freeze Tissue Dried 90.0 Cc #1235-12 - Services [id number] Implanted: Qty: 1 on 01/19/2017 by Harrison Wise MD at [facility] 09/22/2018 2018-40 / [id number] / [id number] Dbm Putty Maxxeus 10cc Cts #2018-40 BONE N/A: Back [facility] [id number] Tissue Implanted: Qty: 1 on 01/19/2017 by Services Harrison Wise MD at [facility] 07/23/2018753501 / Duraseal, Covidien Improved Dural Duraseal N/A: Spine Tyco/Covid Sealant System 5ml #[id number] - S00 ien Implanted: Qty: 1 on 08/08/2017 by Harrison Wise MD at [facility] 01/19/2027 [id number] / 0 / [id number] Yareli 4.75 Ccm Ns Curved 70mm Solara YARELI N/A: Back Medtronic Medtronic #[id number] - S0 Implanted: Qty: 2 on 01/19/2017 by Harrison Wise MD at [facility] 11/09/2025 [id number] / 0000 / [id number] Screw Solera 6.5x30mm Medtronic SCREW Left: Spine Medtronic #[id number] - S0000 Implanted: Qty: 2 on 11/10/2015 by Harrison Wise MD at [facility] 11/09/2025 [id number] / 0000 / [id number] Screw, Medtronic Solara 6.5x45 SCREW Left: Spine Medtronic #[id number] - S0000 Implanted: Qty: 2 on 11/10/2015 by Harrison Wise MD at [facility] 01/19/2027 [id number] / 0 / [id number] Screw Solera 8.5x30mm Mas Medtronic SCREW N/A: Back Medtronic #[id number] Implanted: Qty: 2 on 01/19/2017 by Harrison Wise MD at [facility] 01/19/2027 [id number] / 0 / [id number] Screw, Medtronic Solara 6.5x45 SCREW N/A: Back Medtronic #[id number] - S0 Implanted: Qty: 2 on 01/19/2017 by Harrison Wise MD at [facility] 08/09/2027 [id number] / 00 / 00 Screw, Medtronic # Set Break Off Ti SCREW N/A: Spine Medtronic #[id number] - S00 Implanted: Qty: 3 on 08/08/2017 by Harrison Wise MD at [facility] Description:No charge for any implant per Hortensia Bell Rep 11/09/2025 [id number] / 000 / [id number] Screw Solera 4.75 Ti Ns Break Off Left: Spine Med tronic Medtronic #[id number] - S000 Implanted: Qty: 4 on 11/10/2015 by Harrison Wise MD at [facility] 11/09/2025 [id number] / 0000 / [id number] Yareli 4.75 Ccm Ns Curved 45mm Solera Left: Spine Me dtronic Medtronic #[id number] - S0000 Implanted: Qty: 2 on 11/10/2015 by Harrison Wise MD at [facility] 01/19/2027 [id number] / 0 / [id number] Screw Solera 4.75 Ti Ns Break Off N/A: Back Med tronic Medtronic #[id number] - S0 Implanted: Qty: 6 on 01/19/2017 by Harrison Wise MD at [facility] 01/19/2027 [id number] / 0 / [id number] Screw Solera 7.5x45mm Medtronic N/A: Back Medtr onic #[id number] - S0 Implanted: Qty: 2 on 01/19/2017 by Harrison Wise MD at [facility] Procedures Comments Procedure Name Priority Date/Time Associated Damir vazquez [facility] PATIENT FINANCIAL Routine 12/04/2018 POLICY 8:08 [...] CDT from Last 3 Months Results * [facility] PATIENT FINANCIAL POLICY (12/04/2018 8:08 AM CDT) Specimen Performing Organization Address City/State/Zipcode Ph one Number HIM * NO SHOW OR MISSED APPOINTMENT POLICY ACKNOWLEDGEMENT (12/04/2018 8:06 AM CDT) Specimen Performing Organization Address City/State/[facility] Ph one Number [facility] * CBC WITH DIFFERENTIAL (11/12/2018 6:41 PM CDT) WBC 7.15 4.20 - 10.70 [facility] 10*3/L SERVICES RBC 4.51 4.26 - 5.52 10*6/L [facility] HGB 12.3 12.2 - 16.4 g/dL [facility] HCT 38.3 (L) 38.4 [...] Performing Organization Address City/State/Zipcode Ph one Number [facility] CLIA: [id number], [address] [place] [address] [facility] * Basic Metabolic Panel (NA, K, CL, CO2, GLUCOSE, BUN, CREATININE, CA) (11/12/2018 6:41 PM CDT) NA 142 135 - 145 mmol/L [facility] K 3.9 3.5 - 5.0 mmol/L [facility] CL 109 (H) 98 - 108 mmol/L [facility] CO2 TOTAL 26 23 - 31 mmol/L [facility] AGAP 7 2 - 16 [facility] BUN 12 7 - 23 mg/dL [facility] GLUCOSE 121 (H) 70 - 110 mg/dL [facility] CREATININE 0.84 0.60 - 1.25 mg/dL [facility] CALCIUM 9.5 8.6 - 10.6 mg/dL [facility] eGFR 94.2 mL/min/1.73m2 [facility] Calculation SERVICES (Non-) eGFR 114.2 mL/min/1.73m2 [facility] Calculation SERVICES () Specimen Blood - VENOUS Narrative Performed At Association of Glomerular Filtration Rate (GFR) and S taging of Kidney Disease* [facility] + + +------ + SERVICES [...] Organization Address City/State/Zipcode Ph one Number [facility] CLIA: [id number], [address] [place] [address] [facility] * Troponin I (11/12/2018 6:41 PM CDT) TROPONIN I 0.001 <=0.034 ng/mL [facility] Specimen Blood - VENOUS Narrative Performed At Equal or Less than 0.034 ng/ml---Normal [facility] Note: Cardiac troponin begins to [...] Organization Address City/State/Zipcode Ph one Number [facility] CLIA: [id number], [address] [place] [address] * EKG-12 LEAD (11/12/2018 6:36 PM [...] OF [place] AMER[employer] xxxxxxxxx 2015-P P O [address] [facility] [address] [place] [address] Retail Advance Directives Relationship Healthcare Agent Relationship Communicat ion Name Significant Other Primary healthcare agent [phone] (Mobile) [email or web address] Luanne Carson Child First alternate healthcare agent Rico Christie
--- OUTSIDE RECORDS SUMMARY | 2019-11-04 15:52 | XMS REPORT | Clinical Summary ---
Author Author [facility] - Health Organization [facility] - Health Address Unknown Phone Unavailable Care Team Providers Care Painting Worker Name Role Phone Gabriella Coyle MD 12 Unavailable Pcp, Patient Does Not Have A PCP [phone] Allergies Comments Active Allergy Reactions Severity Noted [...] times daily. Active fluticasone 50 Use 1 [place] 16 g 0 mcg/actuation nasal in each [...] Added automatically from request for gerber wendy [id number] Wound dehiscence 08/23/2017 Hardware complicating wound infection 08/18/2017 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 09/21/2016 Overview: Added automatically from request for gerber wendy [id number] Chronic diastolic congestive heart failure 7 Narcotic abuse 03/14/2016 Overview: No further narcotic prescriptions from [facility] Family Medicine. Pt informed 03/13/16.- Angelica Valero [...] Maintenance) 02/19/2019 Telephone Public Health & [facility] Preventive Medicine Doctor Unassigned, [place] 02/10/2019 Orders Only Doctor Unassigned, [place] 12/04/2018 Orders Only Tammie Tomas FNP Notification (Health maintenance) 11/28/2018 Telephone [facility] Preventive Medicine from Last 3 Months [...] Comments Vital Sign 131/86 02/26/2019 8:06 AM CONSUMER SAFETY OFFICER Blood Pressure 65 02/26/2019 8:06 AM CONSUMER SAFETY OFFICER Pulse 36.5 C (97.7 F) 11/12/2018 6:24 PM CDT Temperature 18 02/26/2019 8:06 AM CONSUMER SAFETY OFFICER Respiratory Rate 95% 11/12/2018 6:24 PM CDT Oxygen Saturation - - Inhaled Oxygen Concentration 98.2 kg (216 lb 8 oz) 02/26/2019 8:06 AM CONSUMER SAFETY OFFICER Weight 170.2 cm (5' 7") 02/26/2019 8:06 AM CONSUMER SAFETY OFFICER Height 33.91 02/26/2019 8:06 AM CONSUMER SAFETY OFFICER Body Mass Index Plan of Treatment Health [...] Implanted Type Area Manufactur er 04/26/20172017-40 / [id number] / [id number] Dbm Putty Maxxeus 10cc Cts #2018-40 BONE Left: Spin e Community - [id number] Tissue Implanted: Qty: 1 on 11/10/2015 by Services Harrison Wise MD at [facility] 07/07/2020 1234-12 / [id number] / [id number] Cancellous Crushed, Community BONE Left: Spine Community Tissue Services (1 10mm) Freeze Tissue Dried 60.0 Cc #1234-12 - S0000 Services Implanted: Qty: 1 on 11/10/2015 by Harrison Wise MD at [facility] 10/16/2021 1235-12 / [id number] / [id number] Cancellous Crushed, Community BONE N/A: Back Community Tissue Services (1 10mm) Freeze Tissue Dried 90.0 Cc #1235-12 - Services [id number] Implanted: Qty: 1 on 01/19/2017 by Harrison Wise MD at [facility] 09/22/20182017- / [id number] / [id number] Dbm Putty Maxxeus 10cc [facility] #2018-40 BONE N/A: [facility] [id number] Tissue Implanted: Qty: 1 on 01/19/2017 by Services Harrison Wise MD at [facility] 07/23/2018197455 / Duraseal, Covidien Improved Dural Duraseal N/A: Spine Tyco/Covid Sealant System 5ml #979047 - S00 ien Implanted: Qty: 1 on 08/08/2017 by Harrison Wise MD at [facility] 01/19/2027 [id number] / 0 / [id number] Yareli 4.75 Ccm Ns Curved 70mm Solara YARELI N/A: Back Medtronic Medtronic #[id number] - S0 Implanted: Qty: 2 on 01/19/2017 by Harrison Wise MD at [facility] 11/09/2025 [id number] / 0000 / [id number] Screw Solera 6.5x30mm Medtronic SCREW Left: Spine Medtronic #[id number] - S0000 Implanted: Qty: 2 on 11/10/2015 by Harrison Wise MD at [facility] 11/09/2025 [id number] / 0000 / [id number] Screw, Medtronic Solara 6.5x45 SCREW Left: Spine Medtronic #[id number] - S0000 Implanted: Qty: 2 on 11/10/2015 by Harrison Wise MD at [facility] 01/19/2027 [id number] / 0 / [id number] Screw Solera 8.5x30mm Mas Medtronic SCREW N/A: Back Medtronic #[id number] Implanted: Qty: 2 on 01/19/2017 by Harrison Wise MD at [facility] 01/19/2027 [id number] / 0 / [id number] Screw, Medtronic Solara 6.5x45 SCREW N/A: Back Medtronic #[id number] - S0 Implanted: Qty: 2 on 01/19/2017 by Harrison Wise MD at [facility] 08/09/2027 [id number] / 00 / [id number] Screw, Medtronic # Set Break Off Ti SCREW N/A: Spine Medtronic #[id number] - S00 Implanted: Qty: 3 on 08/08/2017 by Harrison Wise MD at [facility] Description:No charge for any implant per Jesse Watts Medteonic Rep 11/09/2025 [id number] / 000 / [id number] Screw Solera 4.75 Ti Ns Break Off Left: Spine Med tronic Medtronic #[id number] - S000 Implanted: Qty: 4 on 11/10/2015 by Harrison Wise MD at [facility] 11/09/2025 [id number] / 0000 / [id number] Yareli 4.75 Ccm Ns Curved 45mm Solera Left: Spine Me dtronic Medtronic #[id number] - S0000 Implanted: Qty: 2 on 11/10/2015 by Harrison Wise MD at [facility] 01/19/2027 [id number] / 0 / [id number] Screw Solera 4.75 Ti Ns Break Off N/A: Back Med tronic Medtronic #[id number] - S0 Implanted: Qty: 6 on 01/19/2017 by Harrison Wise MD at [facility] 01/19/2027 [id number] / 0 / [id number] Screw Solera 7.5x45mm Medtronic N/A: Back Medtr onic #[id number] - S0 Implanted: Qty: 2 on 01/19/2017 by Harrison Wise MD at [facility] Procedures Comments Procedure Name Priority Date/Time Associated Diag nosis DME/SUPPLY JUSTIFICATION Routine 02/10/2019 12:01 AM [facility] PATIENT FINANCIAL Routine 12/04/2018 POLICY 8:08 AM CDT NO SHOW OR MISSED Routine 12/04/2018 APPOINTMENT POLICY 8:06 AM CDT ACKNOWLEDGEMENT from Last 3 Months Results * DME/SUPPLY JUSTIFICATION (02/10/2019 12:01 AM CONSUMER SAFETY OFFICER) Specimen Performing Organization Address City/State/Zipcode Ph one [...] Plan / Dates Group Medicaid [employer] [place] AMER[employer] xxxxxxxxx 2015-P P O MARGI X OF [facility] [address] [place] [address] Retail Advance Directives Relationship Healthcare Agent Relationship Communicat ion Name Significant Other Primary healthcare agent [phone] (Mobile) [email or web address] Luanne Carson Child First alternate healthcare agent Rico Christie
--- OUTSIDE RECORDS SUMMARY | 2019-11-04 15:52 | XMS REPORT | Clinical Summary ---
Author Author [facility] - Health Organization [facility] - Health Address Unknown Phone Unavailable Care Team Providers Care Side Stitching Machine Operator Name Role Phone Gabriella Coyle MD 12 Unavailable Pcp, Patient Does Not Have A PCP [phone] Allergies Comments Active Allergy Reactions Severity Noted [...] times daily. Active fluticasone 50 Use 1 [place] 16 g 0 mcg/actuation nasal in each [...] Added automatically from request for gerber wendy [id number] Wound dehiscence 08/23/2017 Hardware complicating wound infection 08/18/2017 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 09/21/2016 Overview: Added automatically from request for gerber wendy [id number] Chronic diastolic congestive heart failure 7 Narcotic [...] Maintenance) 02/19/2019 Telephone Public Health [facility] Preventive Medicine Doctor Unassigned, [place] 02/10/2019 Orders Only Doctor Unassigned, [place] 12/04/2018 Orders Only Tammie Tomas FNP Notification (Health maintenance) 11/28/2018 Telephone Public [facility] Preventive Medicine from Last 3 Months [...] Comments Vital Sign 131/86 02/26/2019 8:06 AM INTERNATIONAL ORGANIZER Blood Pressure 65 02/26/2019 8:06 AM INTERNATIONAL ORGANIZER Pulse 36.5 C (97.7 F) 11/12/2018 6:24 PM CDT Temperature 18 02/26/2019 8:06 AM INTERNATIONAL ORGANIZER Respiratory Rate 95% 11/12/2018 6:24 PM CDT Oxygen Saturation - - Inhaled Oxygen Concentration 98.2 kg (216 lb 8 oz) 02/26/2019 8:06 AM INTERNATIONAL ORGANIZER Weight 170.2 cm (5' 7") 02/26/2019 8:06 AM INTERNATIONAL ORGANIZER Height 33.91 02/26/2019 8:06 AM INTERNATIONAL ORGANIZER Body Mass Index Plan of Treatment Health [...] Implanted Type Area Manufactur er 04/26/20172017-40 / [id number] / [id number] Dbm Putty Maxxeus 10cc Cts #2018-40 BONE Left: Spin e Community - [id number] Tissue Implanted: Qty: 1 on 11/10/2015 by Services [facility] MD at [facility] 07/07/2020 1234-12 / [id number] / [id number] Cancellous Crushed, Community BONE Left: Spine Community Tissue Services (1 10mm) Freeze Tissue Dried 60.0 Cc #1234-12 - S0000 Services Implanted: Qty: 1 on 11/10/2015 by Harrison Wise MD at [facility] 10/16/2021 1235-12 / [id number] / [id number] Cancellous Crushed, Community BONE N/A: Back Community Tissue Services (1 10mm) Freeze Tissue Dried 90.0 Cc #1235-12 - Services [id number] Implanted: Qty: 1 on 01/19/2017 by Harrison Wise MD at [facility] 09/22/20182017- / [id number] / [id number] Dbm Putty Maxxeus 10cc [facility] #2018-40 BONE N/A: [facility] [id number] Tissue Implanted: Qty: 1 on 01/19/2017 by Services Harrison Wise MD at [facility] 07/23/2018230476 / Duraseal, Covidien Improved Dural Duraseal N/A: Spine Tyco/Covid Sealant System 5ml #982540 - S00 ien Implanted: Qty: 1 on 08/08/2017 by Harrison Wise MD at [facility] 01/19/2027 [id number] / 0 / [id number] Yareli 4.75 Ccm Ns Curved 70mm Solara YARELI N/A: Back Medtronic Medtronic #[id number] - S0 Implanted: Qty: 2 on 01/19/2017 by Harrison Wise MD at [facility] 11/09/2025 [id number] / 0000 / [id number] Screw Solera 6.5x30mm Medtronic SCREW Left: Spine Medtronic #[id number] - S0000 Implanted: Qty: 2 on 11/10/2015 by Harrison Wise MD at [facility] 11/09/2025 [id number] / 0000 / [id number] Screw, Medtronic Solara 6.5x45 SCREW Left: Spine Medtronic #[id number] - S0000 Implanted: Qty: 2 on 11/10/2015 by Harrison Wise MD at [facility] 01/19/2027 [id number] / 0 / [id number] Screw Solera 8.5x30mm Mas Medtronic SCREW N/A: Back Medtronic #[id number] Implanted: Qty: 2 on 01/19/2017 by Harrison Wise MD at [facility] 01/19/2027 [id number] / 0 / [id number] Screw, Medtronic Solara 6.5x45 SCREW N/A: Back Medtronic #[id number] - S0 Implanted: Qty: 2 on 01/19/2017 by Harrison Wise MD at [facility] 08/09/2027 [id number] / 00 / 00 Screw, Medtronic # Set Break Off Ti SCREW N/A: Spine Medtronic #[id number] - S00 Implanted: Qty: 3 on 08/08/2017 by Harrison [facility] MD at [facility] Description:No charge for any implant per Jesse Watts Medteonic Rep 11/09/2025 [id number] / 000 / [id number] Screw Solera 4.75 Ti Ns Break Off Left: Spine Med tronic Medtronic #[id number] - S000 Implanted: Qty: 4 on 11/10/2015 by Harrison Wise MD at [facility] 11/09/2025 [id number] / 0000 / [id number] Yareli 4.75 Ccm Ns Curved 45mm Solera Left: Spine Me dtronic Medtronic #[id number] - S0000 Implanted: Qty: 2 on 11/10/2015 by Harrison Wise MD at [facility] 01/19/2027 [id number] / 0 / [id number] Screw Solera 4.75 Ti Ns Break Off N/A: Back Med tronic Medtronic #[id number] - S0 Implanted: Qty: 6 on 01/19/2017 by Harrison Wise MD at [facility] 01/19/2027 [id number] / 0 / [id number] Screw Solera 7.5x45mm Medtronic N/A: Back Medtr onic #[id number] - S0 Implanted: Qty: 2 on 01/19/2017 by Harrison Wise MD at [facility] Procedures Comments Procedure Name Priority Date/Time Associated Diag nosis DME/SUPPLY JUSTIFICATION Routine 02/10/2019 12:01 AM [facility] PATIENT FINANCIAL Routine 12/04/2018 POLICY 8:08 AM CDT NO SHOW OR MISSED Routine 12/04/2018 APPOINTMENT POLICY 8:06 AM CDT ACKNOWLEDGEMENT from Last 3 Months Results * DME/SUPPLY JUSTIFICATION (02/10/2019 12:01 AM INTERNATIONAL ORGANIZER) Specimen Performing Organization Address City/State/Zipcode Ph one [...] Plan / Dates Group Medicaid [employer] [place] AMER[employer] xxxxxxxxx 2015-P P O MARGI X OF [facility] [address] [place] [address] Retail Advance Directives Relationship Healthcare Agent Relationship Communicat ion Name Significant Other Primary healthcare agent [phone] (Mobile) [email or web address] Luanne Carson Child First alternate healthcare agent Rico Christie
--- OUTSIDE RECORDS SUMMARY | 2019-11-04 15:53 | XMS REPORT | Summary of Care ---
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 Screw, Medtronic # Set Break Off Ti SCREW N/A: Spine Medtronic #[id number] - S00 Implanted: Qty: 3 on 08/08/2017 by Harrison Wise MD at [facility] Description:No charge for any implant per Jesse Watts Medteonic Rep 11/09/2025 [id number] / 000 / [id number] Screw Solera 4.75 Ti Ns Break Off Left: Spine Med tronic Medtronic #[id number] - S000 Implanted: Qty: 4 on 11/10/2015 by Harrison Wise MD at [facility] 11/09/2025 [id number] / 0000 / [id number] Yareli 4.75 Ccm Ns Curved 45mm Solera Left: Spine Me dtronic Medtronic #[id number] - [id number] Implanted: Qty: 2 on 11/10/2015 by Harrison Wise MD at [facility] 01/19/2027 [id number] / 0 / [id number] Screw Solera 4.75 Ti Ns Break Off N/A: Back Med tronic Medtronic #[id number] - S0 Implanted: Qty: 6 on 01/19/2017 by Harrison Wise MD at [facility] 01/19/2027 [id number] / 0 / [id number] Screw Solera 7.5x45mm Medtronic N/A: Back Medtr onic #[id number] - S0 Implanted: Qty: 2 on 01/19/2017 by Harrison Wise MD at [facility] documented as of this encounter Results Not on filedocumented in this encounter Visit Diagnoses Diagnosis Lumbar radiculopathy - Primary Thoracic or lumbosacral neuritis or rad iculitis, unspecified Cervical stenosis of spinal canal Spinal stenosis in cervical region documented in this encounter Insurance Type Payer Benefit Subscriber ID Effective Phone Address Plan / Dates Group Medicaid [employer] [place] [employer] xxxxxxxxx 2015-P P O MARGI X [facility] [address] [place] [address] (Home) [place] [address] documented as of this encounter Advance Directives Relationship Healthcare Agent Relationship Communicat ion Name Significant Other Primary healthcare agent [phone] (M obile) Luanne Carson Child First alternate healthcare agent Rico Christie
--- OUTSIDE RECORDS SUMMARY | 2019-11-04 15:53 | XMS REPORT | Summary of Care ---
Author Author [facility] - Health Organization [facility] - Health Address Unknown Phone Unavailable Care Team Providers Care Crown Ceramist Name Role Phone Gabriella Coyle MD 12 Unavailable Pcp, Patient Does Not Have A PCP [phone] Reason for Referral * MRI/CAT Scan (STAT) Referred By Contact Referred To Contact Status Reason Specialty Diagnoses / Procedures Alvaro Cano MD [address] [place] [phone] New Request Diagnostic Diagnoses Radiology Difficulty walking P rocedures CT HEAD WO CONTRAST Reason for Visit * Reason Comments Other "Difficulty walking" * Auth/Cert Referred By Contact Referred To Contact Status Reason Specialty Diagnoses / Procedures [facility]Emergency Dept [address] [place] [phone] Emergency Medicine Encounter Details Care Team Description Date Type Department Alvaro Cano MD [address] [place] [phone] Narcotic abuse (Primary Dx); Difficulty walking; Opioid abuse; Benzodiazepine abuse 04/19/2019 Emergency [facility] Dep[facility] ment [address] [place] [phone] Allergies Comments Active Allergy Reactions Severity Noted Date Penicillins Rash 11/09/2015 documented as of this encounter (statuses as of 04/19/2019) Medications End Date Status Medication Sig Dispensed [...] times daily. Active fluticasone 50 Use 1 [place] 16 g 0 mcg/actuation nasal in each [...] type needed for Nausea and Vomiting (N/V). documented as of this encounter (statuses as of 04/19/2019) Active Problems Problem Noted Date Infection 09/28/2017 Chronic midline low back pain without sciatica 09/27 Overview: Added automatically from request for gerber pino [id number] Wound dehiscence 08/23/2017 Hardware complicating wound infection 08/18/2017 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 09/21/2016 Overview: Added automatically from request for gerber pino [id number] Chronic diastolic congestive heart failure 7 Narcotic abuse 03/14/2016 Overview: No further narcotic prescriptions from [facility] Family Medicine. Pt informed 03/13/16.- [...] as of this encounter (statuses as of 04/19/2019) Resolved Problems Problem Noted Date Resolved Date [...] as of this encounter (statuses as of 04/19/2019) Immunizations Name Administration Dates Next Due DTAP [...] Signs Reading Time Taken Comments Vital Sign 125/65 04/19/2019 11:27 PM HYDRATE THICKENER OPERATOR Blood Pressure 84 04/19/2019 11:27 PM HYDRATE THICKENER OPERATOR Pulse 36.7 C (98.1 F) 04/19/2019 11:27 PM HYDRATE THICKENER OPERATOR Temperature 18 04/19/2019 11:27 PM HYDRATE THICKENER OPERATOR Respiratory Rate 97% 04/19/2019 11:27 PM HYDRATE THICKENER OPERATOR Oxygen Saturation - - Inhaled Oxygen Concentration 99.8 kg (220 lb) 04/19/2019 8:11 PM HYDRATE THICKENER OPERATOR Weight - - Height 34.46 02/26/2019 8:06 AM HYDRATE THICKENER OPERATOR Body Mass Index documented in this encounter Discharge Instructions * Instructions* Alvaro Cano MD - 04/19/2019 DIAGNOSIS Diagnoses that have been ruled out: None Diagnoses that are still under consideration: None Final diagnoses: Difficulty walking Narcotic abuse NO LIFE-THREATENING FINDINGS ON TODAY'S EXAM. PROCEDURES IN THE ER TODAY: Orders Placed This Encounter Procedures CT HEAD WO CONTRAST CBC with Differential Basic Metabolic Panel (NA, K, CL, CO2, GLUCOSE, BUN, CREATININE, CA) Hepatic Function Panel (ALB, T.PRO, BILI T, BU/BC, ALT, AST, ALK PHOS) Troponin I DRUG SCREEN PANEL 2 URINE CBC WITH DIFFERENTIAL MEDICATIONS ADMINISTERED IN THE ER TODAY: No orders of the defined types were placed in this encounter. YOUR PRESCRIPTIONS AND HDRC-DXD-WAVDSOF MEDICATION RECOMMENDATIONS: Continue home medications SPECIAL CARE INSTRUCTIONS: Follow up with PCP Return to the ED if worsening of symptoms. FOLLOW-UP RECOMMENDATIONS: RECOMMEND FOLLOW-UP WITH A PRIMARY CARE PROVIDER OR SPECIALIST IN 2-5 DAYS, JEISON CIALLY IF NO IMPROVEMENT IN SYMPTOMS. TO FOLLOW-UP WITHIN THE [facility], TRY THESE OPTIONS (CLINIC APPOIN TMENTS AVAILABLE ON TFQC-YP-FLHD BASIS): 1. SCHEDULE AN APPOINTMENT ONLINE AT WWW[facility] 2. OR CALL THE [facility] ACCESS CENTER AT OR 3. OR CALL YOUR [facility] PHYSICIAN'S OFFICE DIRECTLY IF YOU ARE ALREADY AN ESTABLISH ED [facility] PATIENT. OR, YOU MAY FOLLOW-UP WITH A PROVIDER OF YOUR CHOICE, SUCH : 1. A PHYSICIAN OF YOUR CHOICE 2. [facility], . LOCATIONS IN [facility] 3. [facility], [address] [place] [address]; [phone] RETURN TO ER FOR WORSENING OF SYMPTOMS. * Attachments The following attachments cannot be sent through Care Everywhere.* Opiate Abuse (Bolivian) documented in this encounter Plan of Treatment Care Team Description Date Type Specialty Freya Tomas MD [address] [place] [address]. [place] [id number] 08/27/2019 Office Visit Psychiatry Health Maintenance Due Date Last Done Comments [...] Implanted Type Area Manufactur er 04/26/20172017-40 / [id number] / [id number] Dbm Putty Maxxeus 10cc Cts # BONE Left: Spin e [facility] - [id number] Tissue Implanted: Qty: 1 on 11/10/2015 by Services Harrison Wise MD at [facility] 07/07/2020 1234-12 / [id number] / [id number] Cancellous Crushed, Community BONE Left: Spine [facility] Tissue Services (1 10mm) Freeze Tissue Dried 60.0 Cc #1234-12 - S0000 Services Implanted: Qty: 1 on 11/10/2015 by Harrison Wise MD at [facility] 10/16/2021 1235-12 / [id number] / [id number] Cancellous Crushed, [facility] BONE N/A: Back [facility] Tissue Services (1 10mm) Freeze Tissue Dried 90.0 Cc #1235-12 - Services [id number] Implanted: Qty: 1 on 01/19/2017 by Harrison Wise MD at [facility] 09/22/2018 / [id number] / [id number] Dbm Putty Maxxeus 10cc Cts # BONE N/A: Back [facility] - [id number] Tissue Implanted: Qty: 1 on 01/19/2017 by Services Harrison Wise MD at [facility] 07/23/2018982628 Duraseal, Covidien Improved Dural Duraseal N/A: Spine Tyco/Covid Sealant System 5ml #[id number] - S00 ien Implanted: Qty: 1 on 08/08/2017 by Harrison Wise MD at [facility] 01/19/2027 [id number] / 0 / [id number] Yareli 4.75 Ccm Ns Curved 70mm Solara YARELI N/A: Back Medtronic Medtronic #[id number] - S0 Implanted: Qty: 2 on 01/19/2017 by Harrison Wise MD at [facility] 11/09/2025 [id number] / 0000 / [id number] Screw Solera 6.5x30mm Medtronic SCREW Left: Spine Medtronic #[id number] - S0000 Implanted: Qty: 2 on 11/10/2015 by Harrison Wise MD at [facility] 11/09/2025 [id number] / 0000 / [id number] Screw, Medtronic Solara 6.5x45 SCREW Left: Spine Medtronic #[id number] - [id number] Implanted: Qty: 2 on 11/10/2015 by Harrison Wise MD at [facility] 01/19/2027 [id number] / 0 / [id number] Screw Solera 8.5x30mm Mas Medtronic SCREW N/A: Back Medtronic #[id number] Implanted: Qty: 2 on 01/19/2017 by Harrison Wise MD at [facility] 01/19/2027 [id number] / 0 / [id number] Screw, Medtronic Solara 6.5x45 SCREW N/A: Back Medtronic #[id number] - S0 Implanted: Qty: 2 on 01/19/2017 by Harrison Wise MD at [facility] 08/09/2027 [id number] / 00 / 00 Screw, Medtronic # Set Break Off Ti SCREW N/A: Spine Medtronic #[id number] - S00 Implanted: Qty: 3 on 08/08/2017 by Harrison Wise MD at [facility] Description:No charge for any implant per Hortensia Bell 11/09/2025 [id number] / 000 / [id number] Screw Solera 4.75 Ti Ns Break Off Left: Spine Med tronic Medtronic #[id number] - S000 Implanted: Qty: 4 on 11/10/2015 by Harrison Wise MD at [facility] 11/09/2025 [id number] / 0000 / [id number] Yareli 4.75 Ccm Ns Curved 45mm Solera Left: Spine Me dtronic Medtronic #[id number] - [id number] Implanted: Qty: 2 on 11/10/2015 by Harrison Wise MD at [facility] 01/19/2027 [id number] / 0 / [id number] Screw Solera 4.75 Ti Ns Break Off N/A: Back Med tronic Medtronic #[id number] - S0 Implanted: Qty: 6 on 01/19/2017 by Harrison Wise MD at [facility] 01/19/2027 [id number] / 0 / [id number] Screw Solera 7.5x45mm Medtronic N/A: Back Medtr onic #[id number] - S0 Implanted: Qty: 2 on 01/19/2017 by Harrison Wise MD at [facility] documented as of this encounter Procedures Comments Procedure Name Priority Date/Time Associated Diag nosis GALV/CLC ONLY - URINE STAT 04/19/2019 Difficul ty walking DRUG (IMMUNOASSAY) - 9:20 PM HYDRATE THICKENER OPERATOR COMPREHENSIVE DRUG SCREEN CBC WITH DIFFERENTIAL STAT 04/19/2019 Difficul ty walking 9:00 PM HYDRATE THICKENER OPERATOR CBC WITH DIFFERENTIAL Routine 04/19/2019 Difficul ty walking 9:00 PM HYDRATE THICKENER OPERATOR BASIC METABOLIC PANEL STAT 04/19/2019 Difficul ty walking (NA, K, CL, CO2, GLUCOSE, 9:00 PM HYDRATE THICKENER OPERATOR BUN, CREATININE, CA) HEPATIC FUNCTION PANEL STAT 04/19/2019 Difficu lty walking (22384) (ALB,T.PRO,BILI 9:00 PM HYDRATE THICKENER OPERATOR T,BU/BC,ALT,AST,ALK PHOS) TROPONIN I STAT 04/19/2019 Difficulty walk ing 9:00 PM HYDRATE THICKENER OPERATOR CT HEAD WO CONTRAST STAT 04/19/2019 Difficulty walking 8:53 PM HYDRATE THICKENER OPERATOR documented in this encounter Results * DRUG SCREEN PANEL 2 URINE (04/19/2019 9:20 PM HYDRATE THICKENER OPERATOR) AMPHET Negative Negative [facility] KRYSTIN U Negative Negative [facility] BENZO U Presumptive Positive (A) Negative [facility] Cocaine Negative Negative [facility] Metabolite SERVICES METHADONE Negative Negative [facility] OPIATES Presumptive Positive (A) Negative [facility] PCP Negative Negative [facility] THC Presumptive Positive (A) Negative [facility] Specimen Urine - URINE, CLEAN CATCH Narrative Performed At Urine Drug Cutoff Ranges [facility] Cocaine: 150 ng/mL SERVICES Benzodiazepines: 200 ng/mL Methadone: 300 ng/mL Amphetamine: 1,000 ng/mL Opiates: 300 ng/mL Cannabinoids: 50 ng/mL Phencyclidine: 25 ng/mL Barbiturates: 200 ng/mL The results are to be used only for med ical (i.e., treatment) purposes. Unconfirmed screening results must not be used for non-medical purposes (e.g., employment testing, legal testing). Performing Organization Address City/State/Zipcode Ph one Number [facility] CLIA: [id number], [address] [place] [address] [facility] * CBC WITH DIFFERENTIAL (04/19/2019 9:00 PM HYDRATE THICKENER OPERATOR) WBC 7.15 4.20 - 10.70 [facility] 10*3/L SERVICES RBC 4.05 (L) 4.26 - 5.52 10*6/L [facility] HGB 11.8 (L) 12.2 - 16.4 g/dL [facility] RY SERVICES HCT 36.0 (L) 38.4 - 49.3 % [facility] MCV 88.9 81.7 - 95.6 fL [facility] MCH 29.1 26.1 - 32.7 pg [facility] MCHC 32.8 31.2 - 35.0 g/dL [facility] RY SERVICES RDW-SD 47.5 38.5 - 51.6 fL [facility] RDW-CV 14.7 12.1 - 15.4 % [facility] PLT 182 150 - 328 10*3/L [facility] MPV 9.5 (L) 9.8 - 13.0 fL [facility] NRBC/100 WBC 0.0 0.0 - 10.0 /100 WBCs [facility] NRBC x10^3 <0.01 10*3/L [facility] GRAN MAT (NEUT) 56.9 % [facility] Y % SERVICES IMM GRAN % 1.10 % [facility] LYMPH % 21.4 % [facility] MONO % 8.7 % [facility] EOS % 11.5 % [facility] BASO % 0.4 % [facility] GRAN MAT 4.07 1.99 - 6.95 10*3/uL [facility] x10^3(ANC) SERVICES IMM GRAN x10^3 0.08 (H) 0.00 - 0.06 10*3/uL [facility] LYMPH x10^3 1.53 1.09 - 3.23 10*3/uL [facility] MONO x10^3 0.62 0.36 - 1.02 10*3/uL [facility] EOS x10^3 0.82 (H) 0.06 - 0.53 10*3/uL [facility] BASO x10^3 0.03 0.01 - 0.09 10*3/uL [facility] Specimen Blood - VENOUS Performing Organization Address City/State/Zipcode Ph one Number [facility] CLIA: [id number], [address] [place] [address] [facility] * Troponin I (04/19/2019 9:00 PM HYDRATE THICKENER OPERATOR) TROPONIN I 0.004 <=0.034 ng/mL [facility] Specimen Blood - VENOUS Narrative Performed At Equal or Less than 0.034 ng/ml---Normal [facility] Note: Cardiac troponin begins to [...] patient's use of biotin. Performing Organization Address [facility] Ph one Number [facility] CLIA: [id number], [address] [place] [address] [facility] * Hepatic Function Panel (ALB, T.PRO, BILI T, BU/BC, ALT, AST, ALK PHOS) (04/19/2019 9:00 PM HYDRATE THICKENER OPERATOR) TOTAL BILI 0.3 0.1 - 1.1 mg/dL [facility] BILI UNCON 0.2 0.1 - 1.1 mg/dL [facility] BILI CONJ 0.0 0.0 - 0.3 mg/dL [facility] T PROTEIN 6.7 6.3 - 8.2 g/dL [facility] ALBUMIN 3.9 3.5 - 5.0 g/dL [facility] ALK PHOS 64 34 - 122 U/L [facility] ALTv 19 5 - 50 U/L [facility] AST(SGOT) 35 13 - 40 U/L [facility] Specimen Blood - VENOUS Performing Organization Address [facility] Ph one Number [facility] CLIA: [id number], [address] [place] [address] [facility] * Basic Metabolic Panel (NA, K, CL, CO2, GLUCOSE, BUN, CREATININE, CA) (04/19/2019 9:00 PM HYDRATE THICKENER OPERATOR) NA 142 135 - 145 mmol/L [facility] K 3.8 3.5 - 5.0 mmol/L [facility] CL 110 (H) 98 - 108 mmol/L [facility] CO2 TOTAL 23 23 - 31 mmol/L [facility] AGAP 9 2 - 16 [facility] BUN 9 7 - 23 mg/dL [facility] GLUCOSE 94 70 - 110 mg/dL [facility] CREATININE 0.97 0.60 - 1.25 mg/dL [facility]AT ORY SERVICES CALCIUM 8.8 8.6 - 10.6 mg/dL [facility] RY SERVICES eGFR 79.8 mL/min/1.73m2 [facility] Calculation SERVICES (Non-) eGFR 96.7 mL/min/1.73m2 [facility] Calculation SERVICES () Specimen Blood - VENOUS Narrative Performed At [facility] Glomerular Filtration Rate (GFR) and S taging of Kidney Disease* [facility] + + +------ + SERVICES [...] Performing Organization Address City/State/Zipcode Ph one Number [facility] CLIA: [id number], [address] [place] [address] [facility] * CT HEAD WO CONTRAST (04/19/2019 8:53 PM HYDRATE THICKENER OPERATOR) Specimen Impressions Performed At No acute intracranial abnormality. PACS/VR/DOSE Images quality: No sagittal and coronal reformats provi ded. Narrative Performed At EXAM: CT HEAD WO CONTRAST PACS/VR/DOSE HISTORY: Neuro deficit(s), subacute TECHNIQUE: CT of the head was performed without intravenous contrast. COMPARISON: None. FINDINGS: The ventricles and sulci are normal in caliber and configuration. No hydrocephalus, midline shift or patholo gical extra-axial fluid collection is present. The basal cisterns are unre markable. There is no acute intracranial hemorrha ge or significant mass effect. No parenchymal attenuation abnormality. Th e xiao-white matter differentiation is preserved. The mastoid air cells and paranasal air sinuses are clear. The calvarium and central skull base are unremarkable . Procedure Note [facility], Radiant Results Inft User - 04/19/2019 9:01 PM HYDRATE THICKENER OPERATOR EXAM: CT HEAD WO CONTRAST HISTORY: Neuro deficit(s), subacute TECHNIQUE: CT of the head was performed without intravenous contrast. COMPARISON: None. FINDINGS: The ventricles and sulci are normal in caliber and configuration. No hydrocephalus, midline shift or pathological extra-axial fluid collection is present. The basal cisterns are unremarkable. There is no acute intracranial hemorrhage or significant mass effect. No parenchymal attenuation abnormality. The xiao-white matter differentiation is preserved. The mastoid air cells and paranasal air sinuses are clear. The calvarium and central skull base are unremarkable. IMPRESSION No acute intracranial abnormality. Images quality: No sagittal and coronal reformats provided. Performing Organization Address City/State/Ziptnde Ph one Number PACS/VR/DOSE documented in this encounter Visit Diagnoses Diagnosis Narcotic abuse - Primary Sedative, hypnotic or anxiolytic abuse, unspecified Difficulty walking Difficulty in walking Opioid abuse Opioid abuse, unspecified Benzodiazepine abuse Sedative, hypnotic or anxiolytic abuse, unspecified documented in this encounter Insurance Type Payer Benefit Subscriber ID Effective Phone Address Plan / Dates Group Medicaid [employer] [place] [employer] xxxxxxxxx 2015-P P O [facility] [address] [place] [address] (Home) [place] [address] documented as of this encounter Advance Directives Relationship Healthcare Agent Relationship Communicat ion Name Significant Other Primary healthcare agent [phone] (M obile) Luanne Carson Child First alternate healthcare agent Rico [place]
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
--- OUTSIDE RECORDS SUMMARY | 2019-11-04 15:53 | XMS REPORT | Summary of Care ---
Author Author [facility] - Health Organization [facility] - Health Address Unknown Phone Unavailable Care Team Providers Care Solar Energy Installation Manager Name Role Phone Gabriella Coyle MD 12 Unavailable Pcp, Patient Does Not Have A PCP [phone] Encounter Details Care Team Description Date Type Department Mallory Sotomayor MD [address] [place] [phone] Chronic low back pain, unspecified back pain laterality, unspecified whether sciatica present (Primary Dx) 05/28/2019 Abstract [facility] edic Surgery- [address] [place] [phone] Allergies Comments Active Allergy Reactions Severity Noted Date Penicillins Rash 11/09/2015 documented as of this encounter (statuses as of 05/28/2019) Medications End Date Status Medication Sig Dispensed [...] times daily. Active fluticasone 50 Use 1 [place] 16 g 0 mcg/actuation nasal in each [...] as of this encounter (statuses as of 05/28/2019) Active Problems Problem Noted Date Infection 09/28/2017 Chronic midline low back pain without sciatica 09/27 Overview: Added automatically from request for buzz [id number] Wound dehiscence 08/23/2017 Hardware complicating wound infection 08/18/2017 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 09/21/2016 Overview: Added automatically from request for buzz [id number] [id number] Chronic diastolic congestive heart failure 7 Narcotic [...] as of this encounter (statuses as of 05/28/2019) Resolved Problems Problem Noted Date Resolved Date [...] as of this encounter (statuses as of 05/28/2019) Immunizations Name Administration Dates Next Due DTAP [...] Treatment Care Team Description [place] [address] [place] [address] [place] [address] [phone] 05/28/2019 Appoint[place] [address] [place] [address] [phone] 05/29/2019 Office Visit Orthopedic Surgery Lavern Freire MD [address] [facility] [address] [place] [address] [phone] 06/02/2019 Office Visit Ophthalmology Screening/Bon, [facility] Audio 06/03/2019 Ancillary Visit Audiology Freya Tomas MD [address] [place] [phone] 08/27/2019 Office Visit Psychiatry Order Schedule Name Type Priority Associated Diag noses Expected: 05/29/2019, Expires: 1 XR LUMBAR SPINE 2 VW IMAGING Routine Chronic l ow back pain, unspecified back pain laterality, unspecified whether sciatica present Health Maintenance Due Date Last Done Comments [...] Implanted Type Area Manufactur er 04/26/20172017-40 / [id number] / [id number] Dbm Putty Maxxeus 10cc Cts #2017- BONE Left: Spin e [facility] - [id number] Tissue Implanted: Qty: 1 on 11/10/2015 by Harrison Sidhu MD at [facility] 07/07/2020 1234-12 / [id number] / [id number] Cancellous Crushed, Community BONE Left: Spine [facility] Tissue Services (1 10mm) Freeze Tissue Dried 60.0 Cc #1234-12 - [id number] Services Implanted: Qty: 1 on 11/10/2015 by Harrison Wise MD at [facility] 10/16/2021 1235-12 / [id number] / [id number] Cancellous Crushed, Community BONE N/A: Back [facility] Tissue Services (1 10mm) Freeze Tissue Dried 90.0 Cc #1235-12 - Services [id number] Implanted: Qty: 1 on 01/19/2017 by Harrison Wise MD at [facility] 09/22/2018 / [id number] / [id number] Dbm Putty Maxxeus 10cc Cts # BONE N/A: Back [facility] - [id number] Tissue Implanted: Qty: 1 on 01/19/2017 by Harrison Sidhu MD at [facility] 07/23/2018 [id number] / 00 / 00 Duraseal, Covidien Improved Dural Duraseal N/A: Spine Tyco/Covid Sealant System 5ml #[id number] - [id number] ien Implanted: Qty: 1 on 08/08/2017 by Harrison Wise MD at [facility] 01/19/2027 [id number] / 0 / [id number] Yareli 4.75 Ccm Ns Curved 70mm Solara YARELI N/A: Back Medtronic Medtronic #[id number] - S0 Implanted: Qty: 2 on 01/19/2017 by Harrison Wise MD at [facility] 11/09/2025 [id number] / 0000 / [id number] Screw Solera 6.5x30mm Medtronic SCREW Left: Spine Medtronic #[id number] - [id number] Implanted: Qty: 2 on 11/10/2015 by Harrison Wise MD at [facility] 11/09/2025 [id number] / 0000 / [id number] Screw, Medtronic Solara 6.5x45 SCREW Left: Spine Medtronic #[id number] - [id number] Implanted: Qty: 2 on 11/10/2015 by Harrison Wise MD at [facility] 01/19/2027 [id number] / 0 / [id number] Screw Solera 8.5x30mm Mas Medtronic SCREW N/A: Back Medtronic #[id number] Implanted: Qty: 2 on 01/19/2017 by Harrison Wise MD at [facility] 01/19/2027 [id number] / 0 / [id number] Screw, Medtronic Solara 6.5x45 SCREW N/A: Back Medtronic #[id number] - S0 Implanted: Qty: 2 on 01/19/2017 by Harrison Wise MD at [facility] 08/09/2027 [id number] / 00 / 00 Screw, Medtronic # Set Break Off Ti SCREW N/A: Spine Medtronic #[id number] - [id number] Implanted: Qty: 3 on 08/08/2017 by Harrison Wise MD at [facility] Description:No charge for any implant per Hortensia Bell 11/09/2025 [id number] / 000 / [id number] Screw Solera 4.75 Ti Ns Break Off Left: Spine Med tronic Medtronic #[id number] - [id number] Implanted: Qty: 4 on 11/10/2015 by Harrison Wise MD at [facility] 11/09/2025 [id number] / 0000 / [id number] Yareli 4.75 Ccm Ns Curved 45mm Solera Left: Spine Me dtronic Medtronic #[id number] - [id number] Implanted: Qty: 2 on 11/10/2015 by Harrison Wise MD at [facility] 01/19/2027 [id number] / 0 / [id number] Screw Solera 4.75 Ti Ns Break Off N/A: Back Med tronic Medtronic #[id number] - S0 Implanted: Qty: 6 on 01/19/2017 by Harrison Wise MD at [facility] 01/19/2027 [id number] / 0 / [id number] Screw Solera 7.5x45mm Medtronic N/A: Back Medtr onic #[id number] - S0 Implanted: Qty: 2 on 01/19/2017 by Harrison Wise MD at [facility] documented as of this encounter Results Not on filedocumented in this encounter Visit Diagnoses Diagnosis Chronic low back pain, unspecified back pain laterality, unspecified whether sciatica present - Primary documented in this encounter Insurance Type Payer Benefit Subscriber ID Effective Phone Address Plan / Dates Group Medicaid [facility] [place] [employer] xxxxxxxxx 2015-P P O MARGI X OF [facility] [id number] [place] [address] documented as of this encounter Advance Directives Relationship Healthcare Agent Relationship Communicat ion Name Significant Other Primary healthcare agent [phone] (M obile) Luanne Carson Child First alternate healthcare agent Rico Christie
--- OUTSIDE RECORDS SUMMARY | 2019-11-04 15:53 | XMS REPORT | Clinical Summary ---
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 Resident: Thony Scott I, Oriana Raya MD., have reviewed this study and agree with the above report. Performing Organization Address City/State/Zipcode Ph one Number PACS/VR/DOSE from Last 3 Months Insurance Type Payer Benefit Subscriber ID Effective Phone Address Plan / Dates Group [facility] xxxxxxxxx 2015-P P O MARGI X [facility] [address] [place] [address] Retail Advance Directives Relationship Healthcare Agent Relationship Communicat ion Name Emergency Contact Primary healthcare agent [phone] (M obile) Luanne Carson Child First alternate healthcare agent Rico Christie
--- OUTSIDE RECORDS SUMMARY | 2019-11-04 15:53 | XMS REPORT | Summary of Care ---
Author Author [facility] - Health Organization [facility] - Health Address Unknown Phone Unavailable Care Team Providers Care Digital Hardware Design Engineer Name Role Phone Gabriella Coyle MD 12 Unavailable Pcp, Patient Does Not Have A PCP [phone] Encounter Details Care Team Description Date [facility] [address] [facility] [address] [place], [place] [address] Arrived 05/29/2019 Hospital [facility] Encounter [facility] [address] [place] [address] Allergies Comments Active Allergy Reactions Severity Noted Date Penicillins Rash 11/09/2015 documented as of this encounter (statuses as of 05/30/2019) Medications End Date Status Medication Sig Dispensed [...] times daily. Active fluticasone 50 Use 1 [place] 16 g 0 mcg/actuation nasal in each [...] mg Take 1 tablet 60 tablet 0 03/ tabletIndications: Lumbar by mouth at 0 radiculopathy, Cervical bedtime. 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 09/21/2016 Overview: Added automatically from request for buzz [id number] [id number] Chronic diastolic congestive heart failure Narcotic abuse [...] as of this encounter (statuses as of 05/30/2019) Resolved Problems Problem Noted Date Resolved Date [...] as of this encounter (statuses as of 05/30/2019) Immunizations Name Administration Dates Next Due DTAP [...] Treatment Care Team Description Date Type Specialty Lavern Freire MD [address] [address] [phone] 06/02/2019 Office Visit Ophthalmology Screening/[facility] Audio 06/03/2019 Ancillary Visit Audiology Freya Tomas MD [address] [place] [phone] 08/27/2019 Office Visit Psychiatry Health Maintenance Due [...] Implanted Type Area Manufactur er 04/26/20172017-40 / [id number] / [id number] Dbm Putty Maxxeus 10cc Cts #2018-40 BONE Left: Spin e [facility] - [id number] Tissue Implanted: Qty: 1 on 11/10/2015 by Harrison Sidhu MD at [facility] 07/07/2020 1234-12 / [id number] / [id number] Cancellous Crushed, Community BONE Left: Spine [facility] Tissue Services (1 10mm) Freeze Tissue Dried 60.0 Cc #1234-12 - [id number] Services Implanted: Qty: 1 on 11/10/2015 by Harrison Wise MD at [facility] 10/16/2021 1235-12 / [id number] / [id number] Cancellous Crushed, [facility] BONE N/A: Back [facility] Tissue Services (1 10mm) Freeze Tissue Dried 90.0 Cc #1235-12 - Services [id number] Implanted: Qty: 1 on 01/19/2017 by Harrison Wise MD at [facility] 09/22/20182017-40 / [id number] / [id number] Dbm Putty Maxxeus 10cc Cts #2017-40 BONE N/A: Back [facility] - [id number] Tissue Implanted: Qty: 1 on 01/19/2017 by Services Harrison Wise MD at [facility] 07/23/2018 [id number] / Duraseal, Covidien Improved Dural Duraseal N/A: Spine Tyco/Covid Sealant System 5ml #[id number] - S00 ien Implanted: Qty: 1 on 08/08/2017 by Harrison Wise MD at [facility] 01/19/2027 [id number] / 0 / [id number] Yareli 4.75 Ccm Ns Curved 70mm Solara YARELI N/A: Back Medtronic Medtronic #[id number] - S0 Implanted: Qty: 2 on 01/19/2017 by Harrison Wise MD at [facility] 11/09/2025 [id number] / 0000 / [id number] Screw Solera 6.5x30mm Medtronic SCREW Left: Spine Medtronic #[id number] - [id number] Implanted: Qty: 2 on 11/10/2015 by Harrison Wise MD at [facility] 11/09/2025 [id number] / 0000 / [id number] Screw, Medtronic Solara 6.5x45 SCREW Left: Spine Medtronic #[id number] - [id number] Implanted: Qty: 2 on 11/10/2015 by Harrison Wise MD at [facility] 01/19/2027 [id number] / 0 / [id number] Screw Solera 8.5x30mm Mas Medtronic SCREW N/A: Back Medtronic #[id number] Implanted: Qty: 2 on 01/19/2017 by Harrison Wise MD at [facility] 01/19/2027 [id number] / 0 / [id number] Screw, Medtronic Solara 6.5x45 SCREW N/A: Back Medtronic #[id number] - S0 Implanted: Qty: 2 on 01/19/2017 by Harrison Wise MD at [facility] 08/09/2027 [id number] / 00 / 00 Screw, Medtronic # Set Break Off Ti SCREW N/A: Spine Medtronic #[id number] - [id number] Implanted: Qty: 3 on 08/08/2017 by Harrison Wise MD at [facility] Description:No charge for any implant per Hortensia Bell 11/09/2025 [id number] / 000 / [id number] Screw Solera 4.75 Ti Ns Break Off Left: Spine Med tronic Medtronic #[id number] - [id number] Implanted: Qty: 4 on 11/10/2015 by Harrison Wise MD at [facility] 11/09/2025 [id number] / 0000 / [id number] Yareli 4.75 Ccm Ns Curved 45mm Solera Left: Spine Me dtronic Medtronic #[id number] - [id number] Implanted: Qty: 2 on 11/10/2015 by Harrison Wise MD at [facility] 01/19/2027 [id number] / 0 / [id number] Screw Solera 4.75 Ti Ns Break Off N/A: Back Med tronic Medtronic #[id number] - S0 Implanted: Qty: 6 on 01/19/2017 by Harrison Wise MD at [facility] 01/19/2027 [id number] / 0 / [id number] Screw Solera 7.5x45mm Medtronic N/A: Back Medtr onic #[id number] - S0 Implanted: Qty: 2 on 01/19/2017 by Harrison Wise MD at [facility] documented as of this encounter Procedures Comments Procedure Name Priority Date/Time Associated Diag nosis XR LUMBAR SPINE 2 VW Routine 05/29/2019 Chronic l ow back pain, 2:58 PM CYBER SYSTEMS ENGINEER unspecified back pain laterality, unspecified whether sciatica present documented in this encounter Results * XR LUMBAR SPINE 2 VW (05/29/2019 2:58 PM CYBER SYSTEMS ENGINEER) Specimen Impressions Performed At FINDINGS/IMPRESSION:: PACS/VR/DOSE Frontal [...] washout on 09/27/17 COMPARISON: None. Procedure Note [facility], Radiant Results Inft User - 05/29/2019 3:15 PM CYBER SYSTEMS ENGINEER EXAM: XR LUMBAR SPINE 2 VW HISTORY: [...] soft tissues are unremarkable. Performing Organization Address City/State/Zipcode Ph one Number PACS/VR/DOSE documented in this encounter Visit Diagnoses Diagnosis Chronic low back pain, unspecified back pain laterality, unspecified whether sciatica present documented in this encounter Insurance Type Payer Benefit Subscriber ID Effective Phone Address Plan / Dates Group Medicaid [employer] [place] xxxxxxxxx 2015-P P O [facility] [address] [place] [address] (Home) [place] [address] documented as of this encounter Advance Directives Relationship Healthcare Agent Relationship Communicat ion Name Significant Other Primary healthcare agent [phone] (M obile) Luanne Carson Child First alternate healthcare agent Rico Christie
--- OUTSIDE RECORDS SUMMARY | 2019-11-04 15:54 | XMS REPORT | Clinical Summary ---
Author Author [facility] Address Unknown Phone Unavailable Care Team Providers Care Private Duty Rn Name Role Phone Gabriella Coyle MD 12 Unavailable Pcp, Patient Does Not Have A PCP [phone] Allergies Comments Active Allergy Reactions Severity Noted Date Penicillins Rash 11/09/2015 Medications No known medications Active Problems Problem Noted Date Trauma 06/19/2019 Concussion with loss of consciousness 06/19/[address] 06/19/2019 Apnea for greater than 15 seconds 06/19/2019 Infection 09/28/2017 Chronic midline low back pain without sciatica 09/27 Overview: Added automatically from request for gerber wendy [id number] Wound dehiscence 08/23/2017 Hardware complicating wound infection 08/18/2017 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 09/21/2016 Overview: Added automatically from request for gerber wendy [id number] Chronic diastolic congestive heart failure 7 Narcotic [...] Benzodiazepine abuse 04/19/2019 Emergency Emergency Medicine Team, [facility] Health Maintenance HEALTH MAINTENANCE 04/18/2019 Telephone Public [...] Implanted Type Area Manufactur er 04/26/20172017-40 / [id number] / [id number] Dbm Putty Maxxeus 10cc Cts # BONE Left: Spin e Community - [id number] Tissue Implanted: Qty: 1 on 11/10/2015 by Services Harrison Wise MD at [facility] 07/07/2020 1234-12 / [id number] / [id number] Cancellous Crushed, Community BONE Left: Spine [facility] Tissue Services (1 10mm) Freeze Tissue Dried 60.0 Cc #1234-12 - [id number] Services Implanted: Qty: 1 on 11/10/2015 by Harrison Wise MD at [facility] 10/16/2021 1235-12 / [id number] / [id number] Cancellous Crushed, [facility] BONE N/A: Back [facility] Tissue Services (1 10mm) Freeze Tissue Dried 90.0 Cc #1235-12 - Services [id number] Implanted: Qty: 1 on 01/19/2017 by Harrison Wise MD at [facility] 09/22/2018 / [id number] / [id number] Dbm Putty Maxxeus 10cc Cts # BONE N/A: Back [facility] - [id number] Tissue Implanted: Qty: 1 on 01/19/2017 by Services Harrison Wise MD at [facility] 07/23/2018847378 Duraseal, Covidien Improved Dural Duraseal N/A: Spine Tyco/Covid Sealant System 5ml #[id number] - S00 ien Implanted: Qty: 1 on 08/08/2017 by Harrison Wise MD at [facility] 01/19/2027 [id number] / 0 / [id number] Yareli 4.75 Ccm Ns Curved 70mm Solara YARELI N/A: Back Medtronic Medtronic #[id number] - S0 Implanted: Qty: 2 on 01/19/2017 by Harrison Wise MD at [facility] 11/09/2025 [id number] / 0000 / [id number] Screw Solera 6.5x30mm Medtronic SCREW Left: Spine Medtronic #[id number] - [id number] Implanted: Qty: 2 on 11/10/2015 by Harrison Wise MD at [facility] 11/09/2025 [id number] / 0000 / [id number] Screw, Medtronic Solara 6.5x45 SCREW Left: Spine Medtronic #[id number] - [id number] Implanted: Qty: 2 on 11/10/2015 by Harrison Wise MD at [facility] 01/19/2027 [id number] / 0 / [id number] Screw Solera 8.5x30mm Mas Medtronic SCREW N/A: Back Medtronic #[id number] Implanted: Qty: 2 on 01/19/2017 by Harrison Wise MD at [facility] 01/19/2027 [id number] / 0 / [id number] Screw, Medtronic Solara 6.5x45 SCREW N/A: Back Medtronic #[id number] - S0 Implanted: Qty: 2 on 01/19/2017 by Harrison Wise MD at [facility] 08/09/2027 [id number] / 00 / 00 Screw, Medtronic # Set Break Off Ti SCREW N/A: Spine Medtronic #[id number] - [id number] Implanted: Qty: 3 on 08/08/2017 by Harrison Wise MD at [facility] Description:No charge for any implant per Hortensia Bell 11/09/2025 [id number] / 000 / [id number] Screw Solera 4.75 Ti Ns Break Off Left: Spine Med tronic Medtronic #[id number] - [id number] Implanted: Qty: 4 on 11/10/2015 by Harrison Wise MD at [facility] 11/09/2025 [id number] / 0000 / [id number] Yareli 4.75 Ccm Ns Curved 45mm Solera Left: Spine Me dtronic Medtronic #[id number] - [id number] Implanted: Qty: 2 on 11/10/2015 by Harrison Wise MD at [facility] 01/19/2027 [id number] / 0 / [id number] Screw Solera 4.75 Ti Ns Break Off N/A: Back Med tronic Medtronic #[id number] - S0 Implanted: Qty: 6 on 01/19/2017 by Harrison Wise MD at [facility] 01/19/2027 [id number] / 0 / [id number] Screw Solera 7.5x45mm Medtronic N/A: Back Medtr onic #[id number] - S0 Implanted: Qty: 2 on 01/19/2017 by Harrison Wise MD at [facility] Procedures Comments Procedure Name Priority Date/Time Associated Diag nosis MRSA / MSSA SCREEN BY STAT 06/19/2019 PCR, NARES 10:01 PM CDT MYOGLOBIN SERUM STAT 06/19/2019 8:54 PM CDT [...] Chronic l ow back pain, 2:58 PM CLIENT SERVER DEVELOPER unspecified back pain laterality, unspecified whether sciatica present PATIENT QUESTIONNAIRE Routine 05/29/2019 12:01 AM CLIENT SERVER DEVELOPER GALV/CLC ONLY - URINE STAT 04/19/2019 Difficul ty walking DRUG (IMMUNOASSAY) - 9:20 PM CLIENT SERVER DEVELOPER COMPREHENSIVE DRUG SCREEN CBC WITH DIFFERENTIAL STAT 04/19/2019 Difficul ty walking 9:00 PM CLIENT SERVER DEVELOPER TROPONIN I STAT 04/19/2019 Difficulty walk ing 9:00 PM CLIENT SERVER DEVELOPER HEPATIC FUNCTION PANEL STAT 04/19/2019 Difficu lty walking (12830) (ALB,T.PRO,BILI 9:00 PM CLIENT SERVER DEVELOPER T,BU/BC,ALT,AST,ALK PHOS) BASIC METABOLIC PANEL STAT 04/19/2019 Difficul ty walking (NA, K, CL, CO2, GLUCOSE, 9:00 PM CLIENT SERVER DEVELOPER BUN, CREATININE, CA) CBC WITH DIFFERENTIAL Routine 04/19/2019 Difficul ty walking 9:00 [address]OPER CT HEAD WO CONTRAST STAT 04/19/2019 Difficulty walking 8:53 PM CLIENT SERVER DEVELOPER EMERGENCY SERVICES Routine 04/19/2019 AGREEMENTS AND 12:01 AM CLIENT SERVER DEVELOPER AUTHORIZATIONS CT ABDOMEN PELVIS W STAT 04/03/2019 LLQ abdomi nal pain CONTRAST 12:01 AM CLIENT SERVER DEVELOPER COMP. METABOLIC PANEL STAT 04/02/2019 LLQ abdo gisselle pain (92896) 9:02 PM CLIENT SERVER DEVELOPER CBC WITH DIFFERENTIAL STAT 04/02/2019 LLQ abdo gisselle pain 9:02 PM CLIENT SERVER DEVELOPER EMERGENCY SERVICES Routine 04/02/2019 AGREEMENTS AND 12:01 AM CLIENT SERVER DEVELOPER AUTHORIZATIONS XR ABDOMEN ACUTE SERIES STAT 04/01/2019 Abdomi nal pain, 8:36 PM CLIENT SERVER DEVELOPER unspecified abdominal location EMERGENCY SERVICES Routine 04/01/2019 AGREEMENTS AND 12:01 AM CLIENT SERVER DEVELOPER AUTHORIZATIONS from Last 3 Months Results * MRSA / MSSA Screen by PCR, Nares (06/19/2019 10:01 PM CDT) MRSA Screen by Negative Negative [facility] PCR, Nares SERVICES MSSA Screen by Negative Negative [facility] PCR, Nares SERVICES MRSA/MSSA No No [facility] Positive? SERVICES Specimen Swab - NARES, BOTH SIDES Performing Organization Address [facility] one Number [facility] CLIA: [id number], [address] [place] [address] [facility] * MYOGLOBIN SERUM (06/19/2019 8:54 PM CDT) MYOGLOB S 75.4 <=121.0 ng/mL [facility] Specimen Blood - ARM, LEFT Narrative Performed At [facility] has been reported to cause a neg ative bias, interpret results relative to [facility] patient's use of biotin. SERVICES Performing Organization Address [facility] one Number [facility] CLIA: [id number], [address] [place] [address] [facility] * CREATINE KINASE (06/19/2019 8:54 PM CDT) CK 68 33 - 194 U/L [facility] Specimen Blood - ARM, LEFT Performing Organization Address [facility] one Number [facility] CLIA: [id number], [address] [place] [address] [facility] * CT THORAX W CONTRAST (06/19/2019 8:50 [...] been present on 10/17/18 CT, clinically correlate. IOlivier MD., have reviewed this study and agree [...] Resident : Melissa Zamorano Report change I, Red-Wade Peter reviewed this study and agree with the [...] with the above report. Performing Organization Address City/State/[facility] one Number PACS/VR/DOSE * CT HEAD [...] present on 10/17/18 CT, cli nically correlate. IOlivier MD., have review ed this study and [...] with the above report. Performing Organization Address City/State[facility] one Number PACS/VR/DOSE * CT ABDOMEN [...] Resident : Carlos Marshall MD., have reviewed [facility] study and agree with the above report. [...] left third and fourth ribs. Procedure Note [facility], Radiant Results Inft User - 06/19/2019 [...] with the above report. Performing Organization Address [facility] one Number PACS/VR/DOSE * Type and Screen - The Type and Screen expires at midnight on the 3rd day after it was drawn. A current Type and Screen is required when RBCs are requested. For all other blood products, a Type and Screen performed during the current hospitalizati... (06/19/2019 8:26 PM CDT) ABO & RH A POSITIVE LAB Comment: Performed at [facility] - [facility] Blood Bank [address] [place] [address] Toll Free: [phone] CLIA No. [id number] IAT Negative LAB Comment: Performed at [facility] - [facility] Blood Bank [address] [place] [address] Toll Free: [phone] CLIA No. [id number] Specimen Blood - VENOUS Performing Organization Address City/[facility] one Number D LAB * aPTT (06/19/2019 8:25 PM CDT) APTT Patient 26 26 - 36 Seconds [facility] Specimen Blood - ARM, LEFT Performing Organization Address [facility] one Number [facility] CLIA: [id number], [address] [place] [address] [facility] * Prothrombin Time (PT) / INR (06/19/2019 8:25 PM CDT) PROTIME PATIENT 10.9 10.1 - 12.6 Seconds [facility] INR 1.0Comment: Normal INR <1.1; [facility] Warfarin Therapeutic range 2.0 SERVICES to 3.0 or 2.5 to 3.5, depending upon the indications. Specimen Blood - ARM, LEFT Performing Organization Address City/[facility] one Number [facility] CLIA: [id number], [address] [place] [address] [facility] * Profile / Hemogram (06/19/2019 8:25 PM CDT) WBC 7.95 4.20 - 10.70 [facility] 10*3/L SERVICES RBC 4.91 4.26 - 5.52 10*6/L [facility] HGB 14.3 12.2 - 16.4 g/dL [facility] HCT 43.4 38.4 - 49.3 % [facility] MCH 29.1 26.1 - 32.7 pg [facility] MCV 88.4 81.7 - 95.6 fL [facility] MCHC 32.9 31.2 - 35.0 g/dL [facility] PLT 210 150 - 328 10*3/L [facility] MPV 9.0 (L) 9.8 - 13.0 fL [facility] RDW-CV 14.2 12.1 - 15.4 % [facility] RDW-SD 45.7 38.5 - 51.6 fL [facility] NRBC x10^3 <0.01 10*3/L [facility] NRBC/100 WBC 0.0 0.0 - 10.0 /100 WBCs [facility] IPF % [facility] Specimen Blood - ARM, LEFT Performing Organization Address City/[facility] one Number [facility] CLIA: [id number], [address] [place] [address] [facility] * Basic Metabolic Panel (NA, K, CL, CO2, GLUCOSE, BUN, CREATININE, CA) (06/19/2019 8:25 PM CDT) Only the most recent of 2 results within the time period is included. NA 141 135 - 145 mmol/L [facility] K 4.3 3.5 - 5.0 mmol/L [facility] CL 105 98 - 108 mmol/L [facility] CO2 TOTAL 26 23 - 31 mmol/L [facility] AGAP 10 2 - 16 [facility] BUN 9 7 - 23 mg/dL [facility] GLUCOSE 86 70 - 110 mg/dL [facility] CREATININE 0.80 0.60 - 1.25 mg/dL [facility] CALCIUM 9.3 8.6 - 10.6 mg/dL [facility] eGFR 99.6 mL/min/1.73m2 [facility] Calculation SERVICES (Non-) eGFR 120.8 mL/min/1.73m2 [facility] Calculation SERVICES () Specimen Blood - ARM, LEFT Narrative Performed At Association of Glomerular Filtration Rate (GFR) and S taging of Kidney Disease* [facility] + + +------ + SERVICES | [...] Performing Organization Address City/State/Zipcode Ph one Number [facility] CLIA: [id number], [address] [place] [address] [facility] * EMERGENCY DEPARTMENT DOCUMENTS (06/19/2019 12:01 AM CDT) Specimen Performing Organization Address City/State/[facility] one Number HIM * XR LUMBAR SPINE 2 VW (05/29/2019 2:58 PM CLIENT SERVER DEVELOPER) Specimen Impressions Performed At FINDINGS/IMPRESSION:: PACS/VR/DOSE Frontal [...] Results Inft User - 05/29/2019 3:15 PM CLIENT SERVER DEVELOPER EXAM: XR LUMBAR SPINE 2 VW HISTORY: [...] Address City/State/Zipcode Ph one Number PACS/VR/DOSE * PATIENT QUESTIONNAIRE (05/29/2019 12:01 AM CLIENT SERVER DEVELOPER) Specimen Performing Organization Address [facility] one Number HIM * DRUG SCREEN PANEL 2 URINE (04/19/2019 9:20 PM CLIENT SERVER DEVELOPER) AMPHET Negative Negative [facility] KRYSTIN U Negative Negative [facility] BENZO U Presumptive Positive (A) Negative [facility] Cocaine Negative Negative [facility] Metabolite SERVICES METHADONE Negative Negative [facility] OPIATES Presumptive Positive (A) Negative [facility] SERVICES PCP Negative Negative [facility] THC Presumptive Positive (A) Negative [facility] Specimen Urine - URINE, CLEAN CATCH Narrative Performed At Urine Drug Cutoff Ranges [facility] Cocaine: 150 ng/mL SERVICES Benzodiazepines: 200 ng/mL Methadone: 300 ng/mL Amphetamine: 1,000 ng/mL Opiates: 300 ng/mL Cannabinoids: 50 ng/mL Phencyclidine: 25 ng/mL Barbiturates: 200 ng/mL The results are to be used only for med ical (i.e., treatment) purposes. Unconfirmed screening results must not be used for non-medical purposes (e.g., employment testing, legal testing). Performing Organization Address City/State/Zipcode Ph one Number [facility] CLIA: [id number], [address] [place] [address] [facility] * CBC WITH DIFFERENTIAL (04/19/2019 9:00 PM CLIENT SERVER DEVELOPER) Only the most recent of 2 results within the time period is included. WBC 7.15 4.20 - 10.70 [facility] 10*3/L SERVICES RBC 4.05 (L) 4.26 - 5.52 10*6/L [facility] HGB 11.8 (L) 12.2 - 16.4 g/dL [facility] HCT 36.0 (L) 38.4 - 49.3 % [facility] MCV 88.9 81.7 - 95.6 fL [facility] MCH 29.1 26.1 - 32.7 pg [facility] MCHC 32.8 31.2 - 35.0 g/dL [facility] RDW-SD 47.5 38.5 - 51.6 fL [facility] RDW-CV 14.7 12.1 - 15.4 % [facility] PLT 182 150 - 328 10*3/L [facility] MPV 9.5 (L) 9.8 - 13.0 fL [facility] NRBC/100 WBC 0.0 0.0 - 10.0 /100 WBCs [facility] NRBC x10^3 <0.01 10*3/L [facility] GRAN MAT (NEUT) 56.9 % [...] Specimen Blood - VENOUS Performing Organization Address [facility] one Number [facility] CLIA: [id number], [address] [place] [address] [facility] * Hepatic Function Panel (ALB, T.PRO, BILI T, BU/BC, ALT, AST, ALK PHOS) (04/19/2019 9:00 PM CLIENT SERVER DEVELOPER) TOTAL BILI 0.3 0.1 - 1.1 mg/dL [facility] BILI UNCON 0.2 0.1 - 1.1 mg/dL [facility] BILI CONJ 0.0 0.0 - 0.3 mg/dL [facility] T PROTEIN 6.7 6.3 - 8.2 g/dL [facility] ALBUMIN 3.9 3.5 - 5.0 g/dL [facility] ALK PHOS 64 34 - 122 U/L [facility] ALTv 19 5 - 50 U/L [facility] AST(SGOT) 35 13 - 40 U/L [facility] Specimen Blood - VENOUS Performing Organization Address City/[facility] one Number [facility] CLIA: [id number], [address] [place] [address] [facility] * Troponin I (04/19/2019 9:00 PM CLIENT SERVER DEVELOPER) TROPONIN I 0.004 <=0.034 ng/mL [facility] Specimen Blood - VENOUS Narrative Performed At Equal or Less than 0.034 ng/ml---Normal [facility] Note: Cardiac troponin begins to [...] patient's use of biotin. Performing Organization Address City/State/[facility] one Number [facility] CLIA: [id number], [address] [place] [address] [facility] * EMERGENCY SERVICES AGREEMENTS AND AUTHORIZATIONS (04/19/2019 12:01 AM CLIENT SERVER DEVELOPER) Only the most recent of 3 results within the time period is included. Specimen Performing Organization Address City/State/[facility] one Number HIM * COMP. METABOLIC PANEL (61024) (04/02/2019 9:02 PM CLIENT SERVER DEVELOPER) NA 143 135 - 145 mmol/L [facility] K 3.9 3.5 - 5.0 mmol/L [facility] CL 106 98 - 108 mmol/L [facility] CO2 TOTAL 24 23 - 31 mmol/L [facility] AGAP 13 2 - 16 [facility] BUN 15 7 - 23 mg/dL [facility] GLUCOSE 93 70 - 110 mg/dL [facility] CREATININE 0.71 0.60 - 1.25 mg/dL [facility] TOTAL BILI 0.5 0.1 - 1.1 mg/dL [facility] CALCIUM 10.1 8.6 - 10.6 mg/dL [facility] T PROTEIN 7.6 6.3 - 8.2 g/dL [facility] ALBUMIN 4.6 3.5 - 5.0 g/dL [facility] ALK PHOS 74 34 - 122 U/L [facility] ALTv 28 5 - 50 U/L [facility] AST(SGOT) 41 (H) 13 - 40 U/L [facility] eGFR 114.4 mL/min/1.73m2 [facility] Calculation SERVICES (Non-) eGFR 138.6 mL/min/1.73m2 [facility] Calculation SERVICES () Specimen Blood - VENOUS Narrative Performed At Association of Glomerular Filtration Rate (GFR) and S taging of Kidney Disease* [facility] + + +------ + SERVICES | [...] Performing Organization Address City/State/Zipcode Ph one Number [facility] CLIA: [id number], [address] [place] [address] [facility] * XR ABDOMEN ACUTE SERIES (04/01/2019 8:36 PM CLIENT SERVER DEVELOPER) Specimen Impressions Performed At No acute cardiopulmonary [...] Results Inft User - 04/01/2019 9:45 PM CLIENT SERVER DEVELOPER XR ABDOMEN ACUTE SERIES HISTORY: abdominal pain, [...] [place] [employer] xxxxxxxxx 2015-P P O MARGI X OF [facility] [address] [place] [address] [phone] amily (Home) [place] [id number] Harvey Christie Hearing Self 1960 [address] [employer] (Home) [place] [address] Retail Advance Directives Relationship Healthcare Agent Relationship Communicat ion Name Emergency Contact Primary healthcare agent [phone] (M obile) Luanne Carson Child First alternate healthcare agent Rico Christie
--- OUTSIDE RECORDS SUMMARY | 2019-11-04 15:54 | XMS REPORT | Clinical Summary ---
Author Author [facility] Organization [facility] Address Unknown Phone Unavailable Care Team Providers Care Supervisor [employer]her Dietary Service Name Role Phone Gabriella Coyle MD 12 Unavailable Pcp, Patient Does Not Have A PCP [phone] Allergies Comments Active Allergy Reactions Severity Noted Date Penicillins Rash 11/09/2015 Medications No known medications Active Problems Problem Noted Date Trauma 06/19/2019 Concussion with loss of consciousness 06/19/[address] 06/19/2019 Apnea for greater than 15 seconds 06/19/2019 Infection 09/28/2017 Chronic midline low back pain without sciatica 09/27 Overview: Added automatically from request for gerber wendy [id number] Wound dehiscence 08/23/2017 Hardware complicating wound infection 08/18/2017 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 09/21/2016 Overview: Added automatically from request for gerber wendy [id number] Chronic diastolic congestive heart failure 7 Narcotic [...] Benzodiazepine abuse 04/19/2019 Emergency Emergency Medicine Team, [facility] Health Maintenance HEALTH MAINTENANCE 04/18/2019 Telephone Public [...] Implanted Type Area Manufactur er 04/26/20172017-40 / [id number] / [id number] Dbm Putty Maxxeus 10cc Cts # BONE Left: Spin e Community - [id number] Tissue Implanted: Qty: 1 on 11/10/2015 by Services Harrison Wise MD at [facility] 07/07/2020 1234-12 / [id number] / [id number] Cancellous Crushed, Community BONE Left: Spine [facility] Tissue Services (1 10mm) Freeze Tissue Dried 60.0 Cc #1234-12 - [id number] Services Implanted: Qty: 1 on 11/10/2015 by Harrison Wise MD at [facility] 10/16/2021 1235-12 / [id number] / [id number] Cancellous Crushed, [facility] BONE N/A: Back [facility] Services (1 10mm) Freeze Tissue Dried 90.0 Cc #1235-12 - Services [id number] Implanted: Qty: 1 on 01/19/2017 by Harrison Wise MD at [facility] 09/22/2018 / [id number] / [id number] Dbm Putty Maxxeus 10cc Cts # BONE N/A: Back [facility] - [id number] Tissue Implanted: Qty: 1 on 01/19/2017 by Services Harrison Wise MD at [facility] 07/23/2018691784 Duraseal, Covidien Improved Dural Duraseal N/A: Spine Tyco/Covid Sealant System 5ml #[id number] - S00 ien Implanted: Qty: 1 on 08/08/2017 by Harrison Wise MD at [facility] 01/19/2027 [id number] / 0 / [id number] Yareli 4.75 Ccm Ns Curved 70mm Solara YARELI N/A: Back Medtronic Medtronic #[id number] - S0 Implanted: Qty: 2 on 01/19/2017 by Harrison Wise MD at [facility] 11/09/2025 [id number] / 0000 / [id number] Screw Solera 6.5x30mm Medtronic SCREW Left: Spine Medtronic #[id number] - [id number] Implanted: Qty: 2 on 11/10/2015 by Harrison Wise MD at [facility] 11/09/2025 [id number] / 0000 / [id number] Screw, Medtronic Solara 6.5x45 SCREW Left: Spine Medtronic #[id number] - [id number] Implanted: Qty: 2 on 11/10/2015 by Harrison Wise MD at [facility] 01/19/2027 [id number] / 0 / [id number] Screw Solera 8.5x30mm Mas Medtronic SCREW N/A: Back Medtronic #[id number] Implanted: Qty: 2 on 01/19/2017 by Harrison Wise MD at [facility] 01/19/2027 [id number] / 0 / [id number] Screw, Medtronic Solara 6.5x45 SCREW N/A: Back Medtronic #[id number] - S0 Implanted: Qty: 2 on 01/19/2017 by Harrison Wise MD at [facility] 08/09/2027 [id number] / 00 / [id number] Screw, Medtronic # Set Break Off Ti SCREW N/A: Spine Medtronic #[id number] - [id number] Implanted: Qty: 3 on 08/08/2017 by Harrison Wise MD at [facility] Description:No charge for any implant per Hortensia Bell 11/09/2025 [id number] / 000 / [id number] Screw Solera 4.75 Ti Ns Break Off Left: Spine Med tronic Medtronic #[id number] - [id number] Implanted: Qty: 4 on 11/10/2015 by Harrison Wise MD at [facility] 11/09/2025 [id number] / 0000 / [id number] Yareli 4.75 Ccm Ns Curved 45mm Solera Left: Spine Me dtronic Medtronic #[id number] - [id number] Implanted: Qty: 2 on 11/10/2015 by Harrison Wise MD at [facility] 01/19/2027 [id number] / 0 / [id number] Screw Solera 4.75 Ti Ns Break Off N/A: Back Med tronic Medtronic #[id number] - S0 Implanted: Qty: 6 on 01/19/2017 by Harrison Wise MD at [facility] 01/19/2027 [id number] / 0 / [id number] Screw Solera 7.5x45mm Medtronic N/A: Back Medtr onic #[id number] - S0 Implanted: Qty: 2 on 01/19/2017 by Harrison Wise MD at [facility] Procedures Comments Procedure Name Priority [...] Chronic l ow back pain, 2:58 PM COMFORT STATION ATTENDANT unspecified back pain laterality, unspecified whether sciatica present PATIENT QUESTIONNAIRE Routine 05/29/2019 12:01 AM COMFORT STATION ATTENDANT GALV/CLC ONLY - URINE STAT 04/19/2019 Difficul ty walking DRUG (IMMUNOASSAY) - 9:20 PM COMFORT STATION ATTENDANT COMPREHENSIVE DRUG SCREEN CBC WITH DIFFERENTIAL STAT 04/19/2019 Difficul ty walking 9:00 PM COMFORT STATION ATTENDANT TROPONIN I STAT 04/19/2019 Difficulty walk ing 9:00 PM COMFORT STATION ATTENDANT HEPATIC FUNCTION PANEL STAT 04/19/2019 Difficu lty walking (91935) (ALB,T.PRO,BILI 9:00 PM COMFORT STATION ATTENDANT T,BU/BC,ALT,AST,ALK PHOS) BASIC METABOLIC PANEL STAT 04/19/2019 Difficul ty walking (NA, K, CL, CO2, GLUCOSE, 9:00 PM COMFORT STATION ATTENDANT BUN, CREATININE, CA) CBC WITH DIFFERENTIAL Routine 04/19/2019 Difficul ty walking 9:00 PM COMFORT STATION ATTENDANT CT HEAD WO CONTRAST STAT 04/19/2019 Difficulty walking 8:53 PM COMFORT STATION ATTENDANT EMERGENCY SERVICES Routine 04/19/2019 AGREEMENTS AND 12:01 AM COMFORT STATION ATTENDANT AUTHORIZATIONS CT ABDOMEN PELVIS W STAT 04/03/2019 LLQ abdomi nal pain CONTRAST 12:01 AM COMFORT STATION ATTENDANT COMP. METABOLIC PANEL STAT 04/02/2019 LLQ abdo igsselle pain (75723) 9:02 PM COMFORT STATION ATTENDANT CBC WITH DIFFERENTIAL STAT 04/02/2019 LLQ abdo gisselle pain 9:02 PM COMFORT STATION ATTENDANT EMERGENCY SERVICES Routine 04/02/2019 AGREEMENTS AND 12:01 AM COMFORT STATION ATTENDANT AUTHORIZATIONS XR ABDOMEN ACUTE SERIES STAT 04/01/2019 Abdomi nal pain, 8:36 PM COMFORT STATION ATTENDANT unspecified abdominal location EMERGENCY SERVICES Routine 04/01/2019 AGREEMENTS AND 12:01 AM COMFORT STATION ATTENDANT AUTHORIZATIONS from Last 3 Months Results * MRSA / MSSA Screen by PCR, Nares (06/19/2019 10:01 PM CDT) MRSA Screen by Negative Negative [facility] PCR, Nares SERVICES MSSA Screen by Negative Negative [facility] PCR, Nares SERVICES MRSA/MSSA No No [facility] Positive? SERVICES Specimen Swab - NARES, BOTH SIDES Performing Organization Address [facility] one Number [facility] CLIA: [id number], [address] [place] [address] [facility] * MYOGLOBIN SERUM (06/19/2019 8:54 PM CDT) MYOGLOB S 75.4 <=121.0 ng/mL [facility] SERVICES Specimen Blood - ARM, LEFT Narrative Performed At [facility] has been reported to cause a neg ative bias, interpret results relative to [facility] patient's use of biotin. SERVICES Performing Organization Address [facility] Ph one Number [facility] CLIA: [id number], [address] [place] [address] [facility] * CREATINE KINASE (06/19/2019 8:54 PM CDT) CK 68 33 - 194 U/L [facility] Specimen Blood - ARM, LEFT Performing Organization Address [facility] Ph one Number [facility] CLIA: [id number], [address] [place] [address] [facility] [address] * CT THORAX W CONTRAST (06/19/2019 8:50 [...] with the above report. Performing Organization Address City/State/[facility] Ph one Number PACS/VR/DOSE * CT HEAD [...] with the above report. Performing Organization Address City/State/[facility] one Number PACS/VR/DOSE * CT ABDOMEN [...] Resident : Carlos Marshall MD., have reviewed [facility] study and agree with the above report. [...] left third and fourth ribs. Procedure Note [facility], Radiant Results Inft User - 06/19/2019 9:15 [...] with the above report. Performing Organization Address [facility] Ph one Number PACS/VR/DOSE * Type and Screen - The Type and Screen expires at midnight on the 3rd day after it was drawn. A current Type and Screen is required when RBCs are requested. For all other blood products, a Type and Screen performed during the current hospitalizati... (06/19/2019 8:26 PM CDT) ABO & RH A POSITIVE LAB Comment: Performed at [facility] Laboratory Services - [facility] Blood Bank [address] [place] [address] Toll Free: [phone] CLIA No. [id number] IAT Negative LAB Comment: Performed at [facility] Laboratory Services - [facility] Blood Bank [address] [place] [address] Toll Free: [phone] CLIA No. [id number] Specimen Blood - VENOUS Performing Organization Address City/[facility] one Number D LAB * aPTT (06/19/2019 8:25 PM CDT) APTT Patient 26 26 - 36 Seconds [facility] LABOR[facility] Y SERVICES Specimen Blood - ARM, LEFT Performing Organization Address [facility] Ph one Number [facility] CLIA: [id number], [address] [place] [address] [facility] * Prothrombin Time (PT) / INR (06/19/2019 8:25 PM CDT) PROTIME PATIENT 10.9 10.1 - 12.6 Seconds [facility] INR 1.0Comment: Normal INR <1.1; [facility] Warfarin Therapeutic range 2.0 SERVICES to 3.0 or 2.5 to 3.5, depending upon the indications. Specimen Blood - ARM, LEFT Performing Organization Address City/[facility] Ph one Number [facility] CLIA: [id number], [address] [place] [address] [facility] * Profile / Hemogram (06/19/2019 8:25 PM CDT) WBC 7.95 4.20 - 10.70 [facility] 10*3/L SERVICES RBC 4.91 4.26 - 5.52 10*6/L [facility] HGB 14.3 12.2 - 16.4 g/dL [facility] RY SERVICES HCT 43.4 38.4 - 49.3 % [facility] MCH 29.1 26.1 - 32.7 pg [facility] SERVICES MCV 88.4 81.7 - 95.6 fL [facility] MCHC 32.9 31.2 - 35.0 g/dL [facility] R[facility] SERVICES PLT 210 150 - 328 10*3/L [facility] MPV 9.0 (L) 9.8 - 13.0 fL [facility] RDW-CV 14.2 12.1 - 15.4 % [facility] RDW-SD 45.7 38.5 - 51.6 fL [facility] NRBC x10^3 <0.01 10*3/L [facility] NRBC/100 WBC 0.0 0.0 - 10.0 /100 WBCs [facility] IPF % [facility] Specimen Blood - ARM, LEFT Performing Organization Address City/[facility] one Number [facility] CLIA: [id number], [address] [place] [address] [facility] * Basic Metabolic Panel (NA, K, CL, CO2, GLUCOSE, BUN, CREATININE, CA) (06/19/2019 8:25 PM CDT) Only the most recent of 2 results within the time period is included. NA 141 135 - 145 mmol/L [facility] K 4.3 3.5 - 5.0 mmol/L [facility] CL 105 98 - 108 mmol/L [facility] CO2 TOTAL 26 23 - 31 mmol/L [facility] AGAP 10 2 - 16 [facility] BUN 9 7 - 23 mg/dL [facility] GLUCOSE 86 70 - 110 mg/dL [facility] CREATININE 0.80 0.60 - 1.25 mg/dL [facility] ORY SERVICES CALCIUM 9.3 8.6 - 10.6 mg/dL [facility] RY SERVICES eGFR 99.6 mL/min/1.73m2 [facility] Calculation SERVICES (Non-) eGFR 120.8 mL/min/1.73m2 [facility] Calculation SERVICES [...] Number [facility] CLIA: [id number], [address] [place] [address] [facility] * EMERGENCY DEPARTMENT DOCUMENTS (06/19/2019 12:01 AM CDT) Specimen Performing Organization Address City/State/[facility] one Number HIM * XR LUMBAR SPINE 2 VW (05/29/2019 2:58 PM COMFORT STATION ATTENDANT) Specimen Impressions Performed At FINDINGS/IMPRESSION:: PACS/VR/DOSE Frontal [...] Results Inft User - 05/29/2019 3:15 PM COMFORT STATION ATTENDANT EXAM: XR LUMBAR SPINE 2 VW HISTORY: [...] PACS/VR/DOSE * PATIENT QUESTIONNAIRE (05/29/2019 12:01 AM COMFORT STATION ATTENDANT) Specimen Performing Organization Address [facility] Ph one Number HIM * DRUG SCREEN PANEL 2 URINE (04/19/2019 9:20 PM COMFORT STATION ATTENDANT) AMPHET Negative Negative [facility] KRYSTIN U Negative Negative [facility] BENZO U Presumptive Positive (A) Negative [facility] SERVICES Cocaine Negative Negative [facility] Metabolite SERVICES METHADONE Negative Negative [facility] OPIATES Presumptive Positive (A) Negative [facility] SERVICES PCP Negative Negative [facility] THC Presumptive Positive (A) Negative [facility] Specimen Urine - URINE, CLEAN CATCH Narrative Performed At Urine Drug Cutoff Ranges [facility] Cocaine: 150 ng/mL SERVICES Benzodiazepines: [...] Number [facility] CLIA: [id number], [address] [place] [address] [facility] * CBC WITH DIFFERENTIAL (04/19/2019 9:00 PM COMFORT STATION ATTENDANT) Only the most recent of 2 results within the time period is included. WBC 7.15 4.20 - 10.70 [facility] 10*3/L SERVICES RBC 4.05 (L) 4.26 - 5.52 10*6/L [facility] HGB 11.8 (L) 12.2 - 16.4 g/dL [facility] SERVICES HCT 36.0 (L) 38.4 - 49.3 % [facility] MCV 88.9 81.7 - 95.6 fL [facility] MCH 29.1 26.1 - 32.7 pg [facility] MCHC 32.8 31.2 - 35.0 g/dL [facility] R[facility] SERVICES RDW-SD 47.5 38.5 - 51.6 fL [facility] RDW-CV 14.7 12.1 - 15.4 % [facility] PLT 182 150 - 328 10*3/L [facility] MPV 9.5 (L) 9.8 - 13.0 fL [facility] NRBC/100 WBC 0.0 0.0 - 10.0 /100 WBCs [facility] NRBC x10^3 <0.01 10*3/L [facility] GRAN MAT (NEUT) 56.9 % [...] Specimen Blood - VENOUS Performing Organization Address [facility] Ph one Number [facility] CLIA: [id number], [address] [place] [address] [facility] * Hepatic Function Panel (ALB, T.PRO, BILI T, BU/BC, ALT, AST, ALK PHOS) (04/19/2019 9:00 PM COMFORT STATION ATTENDANT) TOTAL BILI 0.3 0.1 - 1.1 mg/dL [...] Specimen Blood - VENOUS Performing Organization Address City/[facility] Ph one Number [facility] CLIA: [id number], [address] [place] [address] [facility] * Troponin I (04/19/2019 9:00 PM COMFORT STATION ATTENDANT) TROPONIN I 0.004 <=0.034 ng/mL [facility] [...] patient's use of biotin. Performing Organization Address City/State/[facility] one Number [facility] CLIA: [id number], [address] [place] [address] [facility] * EMERGENCY SERVICES AGREEMENTS AND AUTHORIZATIONS (04/19/2019 12:01 AM COMFORT STATION ATTENDANT) Only the most recent of 3 results within the time period is included. Specimen Performing Organization Address City/State/[facility] one Number HIM * COMP. METABOLIC PANEL (60291) (04/02/2019 9:02 PM COMFORT STATION ATTENDANT) NA 143 135 - 145 mmol/L [facility] K 3.9 3.5 - 5.0 mmol/L [facility] CL 106 98 - 108 mmol/L [facility] CO2 TOTAL 24 23 - 31 mmol/L [facility] AGAP 13 2 - 16 [facility] BUN 15 7 - 23 mg/dL [facility] GLUCOSE 93 70 - 110 mg/dL [facility] CREATININE 0.71 0.60 - 1.25 mg/dL [facility] ORY SERVICES TOTAL BILI 0.5 0.1 - 1.1 mg/dL [facility] SERVICES CALCIUM 10.1 8.6 - 10.6 mg/dL [facility] R[facility] SERVICES T PROTEIN 7.6 6.3 - 8.2 g/dL [facility] ALBUMIN 4.6 3.5 - 5.0 g/dL [facility] ALK PHOS 74 34 - 122 U/L [facility] ALTv 28 5 - 50 U/L [facility] AST(SGOT) 41 (H) 13 - 40 U/L [facility] SERVICES eGFR 114.4 mL/min/1.73m2 [facility] Calculation SERVICES (Non-) eGFR 138.6 mL/min/1.73m2 [facility] Calculation SERVICES [...] Number [facility] CLIA: [id number], [address] [place] [address] [facility] * XR ABDOMEN ACUTE SERIES (04/01/2019 8:36 PM COMFORT STATION ATTENDANT) Specimen Impressions Performed At No acute cardiopulmonary [...] Results Inft User - 04/01/2019 9:45 PM COMFORT STATION ATTENDANT XR ABDOMEN ACUTE SERIES HISTORY: abdominal pain, [...] Plan / Dates Group Medicaid [employer] [place] [employer] xxxxxxxxx 2015-P P O MARGI X OF [facility] [address] [place] [address] [place] (Home) [place] [id number] Harvey Christie Hearing Self 1960 [address] [employer] (Home) [place] [address] Retail Advance Directives Relationship Healthcare Agent Relationship Communicat ion Name Emergency Contact Primary healthcare agent [phone] (M obile) Luanne Carson Child First alternate healthcare agent Rico Christie
--- OUTSIDE RECORDS SUMMARY | 2019-11-04 15:54 | XMS REPORT | Clinical Summary ---
Author Author [facility] - Health Organization [facility] - Health Address Unknown Phone Unavailable Care Team Providers Care Clinical Coder Name Role Phone Gabriella Coyle MD 12 Unavailable Pcp, Patient Does Not Have A PCP [phone] Allergies Comments Active Allergy Reactions Severity Noted Date Penicillins Rash 11/09/2015 Medications No known medications Active Problems Problem Noted Date Trauma 06/19/2019 Concussion with loss of consciousness 06/19/[address] 06/19/2019 Apnea for greater than 15 seconds 06/19/2019 Infection 09/28/2017 Chronic midline low back pain without sciatica 09/27 Overview: Added automatically from request for gerber wendy [id number] Wound dehiscence 08/23/2017 Hardware complicating wound infection 08/18/2017 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 Pt informed [...] Benzodiazepine abuse 04/19/2019 Emergency Emergency Medicine Team, [facility] Health Maintenance HEALTH MAINTENANCE 04/18/2019 Telephone [...] Implanted Type Area Manufactur er 04/26/20172017-40 / [id number] / [id number] Dbm Putty Maxxeus 10cc Cts # BONE Left: Spin e Community - [id number] Tissue Implanted: Qty: 1 on 11/10/2015 by Services Harrison Wise MD at [facility] 07/07/2020 1234-12 / [id number] / [id number] Cancellous Crushed, Community BONE Left: Spine [facility] Tissue Services (1 10mm) Freeze Tissue Dried 60.0 Cc #1234-12 - [id number] Services Implanted: Qty: 1 on 11/10/2015 by Harrison Wise MD at [facility] 10/16/2021 1235-12 / [id number] / [id number] Cancellous Crushed, [facility] BONE N/A: Back [facility] Tissue Services (1 10mm) Freeze Tissue Dried 90.0 Cc #1235-12 - Services [id number] Implanted: Qty: 1 on 01/19/2017 by Harrison Wise MD at [facility] 09/22/2018 / [id number] / [id number] Dbm Putty Maxxeus 10cc Cts # BONE N/A: Back [facility] - [id number] Tissue Implanted: Qty: 1 on 01/19/2017 by Services Harrison Wise MD at [facility] 07/23/2018574109 Duraseal, Covidien Improved Dural Duraseal N/A: Spine Tyco/Covid Sealant System 5ml #[id number] - [id number] ien Implanted: Qty: 1 on 08/08/2017 by Harrison Wise MD at [facility] 01/19/2027 [id number] / 0 / [id number] Yareli 4.75 Ccm Ns Curved 70mm Solara YARELI N/A: Back Medtronic Medtronic #[id number] - S0 Implanted: Qty: 2 on 01/19/2017 by Harrison Wise MD at [facility] 11/09/2025 [id number] / 0000 / [id number] Screw Solera 6.5x30mm Medtronic SCREW Left: Spine Medtronic #[id number] - [id number] Implanted: Qty: 2 on 11/10/2015 by Harrison Wise MD at [facility] 11/09/2025 [id number] / 0000 / [id number] Screw, Medtronic Solara 6.5x45 SCREW Left: Spine Medtronic #[id number] - [id number] Implanted: Qty: 2 on 11/10/2015 by Harrison Wise MD at [facility] 01/19/2027 [id number] / 0 / [id number] Screw Solera 8.5x30mm Mas Medtronic SCREW N/A: Back Medtronic #[id number] Implanted: Qty: 2 on 01/19/2017 by Harrison Wise MD at [facility] 01/19/2027 [id number] / 0 / [id number] Screw, Medtronic Solara 6.5x45 SCREW N/A: Back Medtronic #[id number] - S0 Implanted: Qty: 2 on 01/19/2017 by Harrison Wise MD at [facility] 08/09/2027 [id number] / 00 / [id number] Screw, Medtronic # Set Break Off Ti SCREW N/A: Spine Medtronic #[id number] - [id number] Implanted: Qty: 3 on 08/08/2017 by Harrison Wise MD at [facility] Description:No charge for any implant per Hortensia Bell 11/09/2025 [id number] / 000 / [id number] Screw Solera 4.75 Ti Ns Break Off Left: Spine Med tronic Medtronic #[id number] - [id number] Implanted: Qty: 4 on 11/10/2015 by Harrison Wise MD at [facility] 11/09/2025 [id number] / 0000 / [id number] Yareli 4.75 Ccm Ns Curved 45mm Solera Left: Spine Me dtronic Medtronic #[id number] - [id number] Implanted: Qty: 2 on 11/10/2015 by Harrison Wise MD at [facility] 01/19/2027 [id number] / 0 / [id number] Screw Solera 4.75 Ti Ns Break Off N/A: Back Med tronic Medtronic #[id number] - S0 Implanted: Qty: 6 on 01/19/2017 by Harrison Wise MD at [facility] 01/19/2027 [id number] / 0 / [id number] Screw Solera 7.5x45mm Medtronic N/A: Back Medtr onic #[id number] - S0 Implanted: Qty: 2 on 01/19/2017 by Harrison Wise MD at [facility] Procedures Comments Procedure Name Priority Date/Time [...] Chronic l ow back pain, 2:58 PM WOOD FURNITURE ASSEMBLER unspecified back pain laterality, unspecified whether sciatica present PATIENT QUESTIONNAIRE Routine 05/29/2019 12:01 AM WOOD FURNITURE ASSEMBLER GALV/CLC ONLY - URINE STAT 04/19/2019 Diff[address] walking DRUG (IMMUNOASSAY) - 9:20 PM WOOD FURNITURE ASSEMBLER COMPREHENSIVE DRUG SCREEN CBC WITH DIFFERENTIAL STAT 04/19/2019 Difficul ty walking 9:00 PM WOOD FURNITURE ASSEMBLER TROPONIN I STAT 04/19/2019 Difficulty walk ing 9:00 PM WOOD FURNITURE ASSEMBLER HEPATIC FUNCTION PANEL STAT 04/19/2019 Difficu lty walking (79827) (ALB,T.PRO,BILI 9:00 PM WOOD FURNITURE ASSEMBLER T,BU/BC,ALT,AST,ALK PHOS) BASIC METABOLIC PANEL STAT 04/19/2019 Difficul ty walking (NA, K, CL, CO2, GLUCOSE, 9:00 PM WOOD FURNITURE ASSEMBLER BUN, CREATININE, CA) CBC WITH DIFFERENTIAL Routine 04/19/2019 Difficul ty walking 9:00 PM WOOD FURNITURE ASSEM[employer]ER CT HEAD WO CONTRAST STAT 04/19/2019 Difficulty walking 8:53 PM WOOD FURNITURE ASSEMBLER EMERGENCY SERVICES Routine 04/19/2019 AGREEMENTS AND 12:01 AM WOOD FURNITURE ASSEMBLER AUTHORIZATIONS CT ABDOMEN PELVIS W STAT 04/03/2019 LLQ abdomi nal pain CONTRAST 12:01 AM WOOD FURNITURE ASSEMBLER COMP. METABOLIC PANEL STAT 04/02/2019 LLQ abdo gisselle pain (20747) 9:02 PM WOOD FURNITURE ASSEMBLER CBC WITH DIFFERENTIAL STAT 04/02/2019 LLQ abdo gisselle pain 9:02 PM WOOD FURNITURE ASSEMBLER EMERGENCY SERVICES Routine 04/02/2019 AGREEMENTS AND 12:01 AM WOOD FURNITURE ASSEMBLER AUTHORIZATIONS XR ABDOMEN ACUTE SERIES STAT 04/01/2019 Abdomi nal pain, 8:36 PM WOOD FURNITURE ASSEMBLER unspecified abdominal location EMERGENCY SERVICES Routine 04/01/2019 AGREEMENTS AND 12:01 AM WOOD FURNITURE ASSEMBLER AUTHORIZATIONS from Last 3 Months Results * MRSA / MSSA Screen by PCR, Nares (06/19/2019 10:01 PM CDT) MRSA Screen by Negative Negative [facility] PCR, Nares SERVICES MSSA Screen by Negative Negative [facility] PCR, Nares SERVICES MRSA/MSSA No No [facility] Positive? SERVICES Specimen Swab - NARES, BOTH SIDES Performing Organization Address [facility] one Number [facility] LABORAT[facility] SERVICES CLIA: [id number], [address] [place] [address] [facility] * MYOGLOBIN SERUM (06/19/2019 8:54 PM CDT) MYOGLOB S 75.4 <=121.0 ng/mL [facility]OR[facility] SERVICES Specimen Blood - ARM, LEFT Narrative Performed At [facility] has been reported to cause a neg ative bias, interpret results relative to [facility] patient's use of biotin. SERVICES Performing Organization Address [facility] Ph one Number [facility] SERVICES CLIA: [id number], [address] [place] [address] [facility] * CREATINE KINASE (06/19/2019 8:54 PM CDT) CK 68 33 - 194 U/L [facility] LABORATORY SERVICES Specimen Blood - ARM, LEFT Performing Organization Address [facility] Ph one Number [facility] SERVICES CLIA: [id number], [address] [place] [address] [facility] * CT THORAX W CONTRAST (06/19/2019 8:50 [...] with the above report. Performing Organization Address City/State/[facility] Ph one Number PACS/VR/DOSE * [...] with the above report. Performing Organization Address City/State/[facility] Ph one Number PACS/VR/DOSE * CT [...] Resident : Carlos Marshall MD., have reviewed [facility] study and agree with the above report. [...] left third and fourth ribs. Procedure Note [facility], Radiant Results Inft User - 06/19/2019 9:15 [...] with the above report. Performing Organization Address [facility] Ph one Number PACS/VR/DOSE * [...] RH A POSITIVE LAB Comment: Performed at [facility] Laboratory Services - [facility] Blood Bank [address] [place] [address] Toll Free: [phone] CLIA No. [id number] IAT Negative LAB Comment: Performed at [facility] Laboratory Services - [facility] Blood Bank [address] [place] [address] Toll Free: [phone] CLIA No. [id number] Specimen Blood - VENOUS Performing Organization Address City/[facility] Ph one Number D LAB * aPTT (06/19/2019 8:25 PM CDT) APTT Patient 26 26 - 36 Seconds [facility] LABORATOR Y SERVICES Specimen Blood - ARM, LEFT Performing Organization Address [facility] Ph one Number [facility]ORATORY SERVICES CLIA: [id number], [address] [place] [address] [facility] * Prothrombin Time (PT) / INR (06/19/2019 8:25 PM CDT) PROTIME PATIENT 10.9 10.1 - 12.6 Seconds [facility] LABO RATORY SERVICES INR 1.0Comment: Normal INR <1.1; [facility] Warfarin Therapeutic range 2.0 SERVICES to 3.0 or 2.5 to 3.5, depending upon the indications. Specimen Blood - ARM, LEFT Performing Organization Address City/[facility] Ph one Number [facility]OR[facility] SERVICES CLIA: [id number], [address] [place] [address] [facility] * Profile / Hemogram (06/19/2019 8:25 PM CDT) WBC 7.95 4.20 - 10.70 [facility] LABORATORY 10*3/L SERVICES RBC 4.91 4.26 - 5.52 10*6/L [facility] LABO RATORY SERVICES HGB 14.3 12.2 - 16.4 g/dL [facility] LABORATO RY SERVICES HCT 43.4 38.4 - 49.3 % [facility] MCH 29.1 26.1 - 32.7 pg [facility] MCV 88.4 81.7 - 95.6 fL [facility] MCHC 32.9 31.2 - 35.0 g/dL [facility] LABORATO RY SERVICES PLT 210 150 - 328 10*3/L [facility] LABORA TORY SERVICES MPV 9.0 (L) 9.8 - 13.0 fL [facility] RDW-CV 14.2 12.1 - 15.4 % [facility] RDW-SD 45.7 38.5 - 51.6 fL [facility] SERVICES NRBC x10^3 <0.01 10*3/L [facility] NRBC/100 WBC 0.0 0.0 - 10.0 /100 WBCs [facility] LABO RAT[facility] SERVICES IPF % [facility] SERVICES Specimen Blood - ARM, LEFT Performing Organization Address City/[facility] one Number [facility] SERVICES CLIA: [id number], [address] [place] [address] [facility] * Basic Metabolic Panel (NA, K, CL, CO2, GLUCOSE, BUN, CREATININE, CA) (06/19/2019 8:25 PM CDT) Only the most recent of 2 results within the time period is included. NA 141 135 - 145 mmol/L [facility] LABORATO RY SERVICES K 4.3 3.5 - 5.0 mmol/L [facility] CL 105 98 - 108 mmol/L [facility] LABORATOR Y SERVICES CO2 TOTAL 26 23 - 31 mmol/L [facility] SERVICES AGAP 10 2 - 16 [facility] BUN 9 7 - 23 mg/dL [facility] GLUCOSE 86 70 - 110 mg/dL [facility] CREATININE 0.80 0.60 - 1.25 mg/dL [facility] LABORAT ORY SERVICES CALCIUM 9.3 8.6 - 10.6 mg/dL [facility] LABORATO RY SERVICES eGFR 99.6 mL/min/1.73m2 [facility] Calculation SERVICES (Non-) eGFR 120.8 mL/min/1.73m2 [facility] Calculation SERVICES () Specimen Blood - ARM, LEFT Narrative Performed At Association of Glomerular Filtration Rate (GFR) and S taging of Kidney Disease* [facility] + + +------ [...] Performing Organization Address City/State/Zipcode Ph one Number [facility] SERVICES CLIA: [id number], [address] [place] [address] [facility] * EMERGENCY DEPARTMENT DOCUMENTS (06/19/2019 12:01 AM CDT) Specimen Performing Organization Address City/State/[facility] one Number HIM * XR LUMBAR SPINE 2 VW (05/29/2019 2:58 PM WOOD FURNITURE ASSEMBLER) Specimen Impressions Performed At FINDINGS/IMPRESSION:: PACS/VR/DOSE Frontal [...] Results Inft User - 05/29/2019 3:15 PM WOOD FURNITURE ASSEMBLER EXAM: XR LUMBAR SPINE 2 VW HISTORY: [...] PACS/VR/DOSE * PATIENT QUESTIONNAIRE (05/29/2019 12:01 AM WOOD FURNITURE ASSEMBLER) Specimen Performing Organization Address [facility] Ph one Number HIM * DRUG SCREEN PANEL 2 URINE (04/19/2019 9:20 PM WOOD FURNITURE ASSEMBLER) AMPHET Negative Negative [facility] KRYSTIN U Negative Negative [facility] BENZO U Presumptive Positive (A) Negative [facility] Cocaine Negative Negative [facility] Metabolite SERVICES METHADONE Negative Negative [facility] OPIATES Presumptive Positive (A) Negative [facility] SERVICES PCP Negative Negative [facility] THC Presumptive Positive (A) Negative [facility] SERVICES Specimen Urine - URINE, CLEAN CATCH Narrative Performed At Urine Drug Cutoff Ranges [facility] Cocaine: 150 ng/mL SERVICES Benzodiazepines: 200 ng/mL Methadone: 300 ng/mL Amphetamine: 1,000 ng/mL Opiates: 300 ng/mL Cannabinoids: 50 ng/mL Phencyclidine: 25 ng/mL Barbiturates: 200 ng/mL The results are to be used only for med ical (i.e., treatment) purposes. Unconfirmed screening results must not be used for non-medical purposes (e.g., employment testing, legal testing). Performing Organization Address City/State/Zipcode Ph one Number [facility] SERVICES CLIA: [id number], [address] [place] [address] [facility] * CBC WITH DIFFERENTIAL (04/19/2019 9:00 PM WOOD FURNITURE ASSEMBLER) Only the most recent of 2 results within the time period is included. WBC 7.15 4.20 - 10.70 [facility] 10*3/L SERVICES RBC 4.05 (L) 4.26 - 5.52 10*6/L [facility] LAB[facility] RAT[facility] SERVICES HGB 11.8 (L) 12.2 - 16.4 g/dL [facility]ORATO RY SERVICES HCT 36.0 (L) 38.4 - 49.3 % [facility] MCV 88.9 81.7 - 95.6 fL [facility] MCH 29.1 26.1 - 32.7 pg [facility] MCHC 32.8 31.2 - 35.0 g/dL [facility]ORATO RY SERVICES RDW-SD 47.5 38.5 - 51.6 fL [facility] RDW-CV 14.7 12.1 - 15.4 % [facility] PLT 182 150 - 328 10*3/L [facility] LABORA TORY SERVICES MPV 9.5 (L) 9.8 - 13.0 fL [facility] SERVICES NRBC/100 WBC 0.0 0.0 - 10.0 /100 WBCs [facility] RAT[facility] SERVICES NRBC x10^3 <0.01 10*3/L [facility] GRAN MAT (NEUT) 56.9 % [...] Specimen Blood - VENOUS Performing Organization Address [facility] Ph one Number [facility] CLIA: [id number], [address] [place] [address] [facility] * Hepatic Function Panel (ALB, T.PRO, BILI T, BU/BC, ALT, AST, ALK PHOS) (04/19/2019 9:00 PM WOOD FURNITURE ASSEMBLER) TOTAL BILI 0.3 0.1 - 1.1 mg/dL [...] Specimen Blood - VENOUS Performing Organization Address City/[facility] Ph one Number [facility] CLIA: [id number], [address] [place] [address] [facility] * Troponin I (04/19/2019 9:00 PM WOOD FURNITURE ASSEMBLER) TROPONIN I 0.004 <=0.034 ng/mL [facility] SERVICES Specimen Blood - VENOUS Narrative Performed At Equal or Less than 0.034 ng/ml---Normal [facility] LAB[facility]AT[facility] Note: Cardiac troponin begins [...] patient's use of biotin. Performing Organization Address City/State/[facility] Ph one Number [facility] SERVICES CLIA: [id number], [address] [place] [address] [facility] * EMERGENCY SERVICES AGREEMENTS AND AUTHORIZATIONS (04/19/2019 12:01 AM WOOD FURNITURE ASSEMBLER) Only the most recent of 3 results within the time period is included. Specimen Performing Organization Address City/State/[facility] Ph one Number HIM * COMP. METABOLIC PANEL (85771) (04/02/2019 9:02 PM WOOD FURNITURE ASSEMBLER) NA 143 135 - 145 mmol/L [facility] LABORATO RY SERVICES K 3.9 3.5 - 5.0 mmol/L [facility] LABORATO RY SERVICES CL 106 98 - 108 mmol/L [facility] LABORATOR Y SERVICES CO2 TOTAL 24 23 - 31 mmol/L [facility] SERVICES AGAP 13 2 - 16 [facility] SERVICES BUN 15 7 - 23 mg/dL [facility] SERVICES GLUCOSE 93 70 - 110 mg/dL [facility] SERVICES CREATININE 0.71 0.60 - 1.25 mg/dL [facility] LABORAT ORY SERVICES TOTAL BILI 0.5 0.1 - 1.1 mg/dL [facility] LABORATOR Y SERVICES CALCIUM 10.1 8.6 - 10.6 mg/dL [facility] LABORATO RY SERVICES T PROTEIN 7.6 6.3 - 8.2 g/dL [facility] ALBUMIN 4.6 3.5 - 5.0 g/dL [facility] ALK PHOS 74 34 - 122 U/L [facility] ALTv 28 5 - 50 U/L [facility] AST(SGOT) 41 (H) 13 - 40 U/L [facility] SERVICES eGFR 114.4 mL/min/1.73m2 [facility] Calculation SERVICES (Non-) eGFR 138.6 mL/min/1.73m2 [facility] Calculation SERVICES () Specimen Blood - VENOUS Narrative Performed At Association of Glomerular Filtration Rate (GFR) and S taging of Kidney Disease* [facility] + + +------ [...] Performing Organization Address City/State/Zipcode Ph one Number [facility] CLIA: [id number], [address] [place] [address] [facility] * XR ABDOMEN ACUTE SERIES (04/01/2019 8:36 PM WOOD FURNITURE ASSEMBLER) Specimen Impressions Performed At No acute cardiopulmonary [...] Results Inft User - 04/01/2019 9:45 PM WOOD FURNITURE ASSEMBLER XR ABDOMEN ACUTE SERIES HISTORY: abdominal pain, [...] xxxxxxxxx 2015-P P O MARGI X OF [facility] [address] [place] [address] [phone] amily (Home) [place] [id number] Harvey Christie Hearing Self 1960 [address] [employer] (Home) [place] [address] Retail Advance Directives Relationship Healthcare Agent Relationship Communicat ion Name Emergency Contact Primary healthcare agent [phone] (M obile) Luanne Carson Child First alternate healthcare agent Rico Christie
--- OUTSIDE RECORDS SUMMARY | 2019-11-04 15:54 | XMS REPORT | Clinical Summary ---
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 Name Role Phone Gabriella Coyle MD 12 Unavailable Pcp, Patient Does Not Have A PCP [phone] Allergies Comments Active Allergy Reactions Severity Noted Date Penicillins Rash 11/09/2015 Medications No known medications Active Problems Problem Noted Date Trauma 06/19/2019 Concussion with loss of consciousness 06/19/[address] 06/19/2019 Apnea for greater than 15 seconds 06/19/2019 Infection 09/28/2017 Chronic midline low back pain without sciatica 09/27 Overview: Added automatically from request for gerber wendy [id number] Wound dehiscence 08/23/2017 Hardware complicating wound infection 08/18/2017 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 09/21/2016 Overview: Added automatically from request for gerber wendy [id number] Chronic diastolic congestive heart failure 7 Narcotic [...] Benzodiazepine abuse 04/19/2019 Emergency Emergency Medicine Team, [facility] Health Maintenance HEALTH MAINTENANCE 04/18/2019 Telephone Public Health & Gen era Preventive Medicine Golden Rivera RN HEALTH MAINTENANCE (High ED Utilization) 04/18/2019 Telephone Public Health & Gen eral Preventive Medicine Jacek Meeks MD LLQ abdominal pain (Primary Dx); Chronic midline low back pain with bilateral sciatica; Non-intractable vomiting with nausea, unspecified vomiting type 04/02/2019 Emergency Emergency Medicine - 04/03/2019 Unknown, Attending Adria oCrtes FNP Abdominal pain, unspecified abdominal lo cation [...] Implanted Type Area Manufactur er 04/26/20172017-40 / [id number] / [id number] Dbm Putty Maxxeus 10cc Cts # BONE Left: Spin e Community - [id number] Tissue Implanted: Qty: 1 on 11/10/2015 by Services Harrison Wise MD at [facility] 07/07/2020 1234-12 / [id number] / [id number] Cancellous Crushed, Community BONE Left: Spine [facility] Tissue Services (1 10mm) Freeze Tissue Dried 60.0 Cc #1234-12 - [id number] Services Implanted: Qty: 1 on 11/10/2015 by Harrison Wise MD at [facility] 10/16/2021 1235-12 / [id number] / [id number] Cancellous Crushed, [facility] BONE N/A: Back [facility] Tissue Services (1 10mm) Freeze Tissue Dried 90.0 Cc #1235-12 - Services [id number] Implanted: Qty: 1 on 01/19/2017 by Harrison Wise MD at [facility] 09/22/2018 / [id number] / [id number] Dbm Putty Maxxeus 10cc Cts # BONE N/A: Back [facility] - [id number] Tissue Implanted: Qty: 1 on 01/19/2017 by Services Harrison Wise MD at [facility] 07/23/2018395488 Duraseal, Covidien Improved Dural Duraseal N/A: Spine Tyco/Covid Sealant System 5ml #[id number] - [id number] ien Implanted: Qty: 1 on 08/08/2017 by Harrison Wise MD at [facility] 01/19/2027 [id number] / 0 / [id number] Yareli 4.75 Ccm Ns Curved 70mm Solara YARELI N/A: Back Medtronic Medtronic #[id number] - S0 Implanted: Qty: 2 on 01/19/2017 by Harrison Wise MD at [facility] 11/09/2025 [id number] / 0000 / [id number] Screw Solera 6.5x30mm Medtronic SCREW Left: Spine Medtronic #[id number] - [id number] Implanted: Qty: 2 on 11/10/2015 by Harrison Wise MD at [facility] 11/09/2025 [id number] / 0000 / [id number] Screw, Medtronic Solara 6.5x45 SCREW Left: Spine Medtronic #[id number] - [id number] Implanted: Qty: 2 on 11/10/2015 by Harrison Wise MD at [facility] 01/19/2027 [id number] / 0 / [id number] Screw Solera 8.5x30mm Mas Medtronic SCREW N/A: Back Medtronic #[id number] Implanted: Qty: 2 on 01/19/2017 by Harrison Wise MD at [facility] 01/19/2027 [id number] / 0 / [id number] Screw, Medtronic Solara 6.5x45 SCREW N/A: Back Medtronic #[id number] - S0 Implanted: Qty: 2 on 01/19/2017 by Harrison Wise MD at [facility] 08/09/2027 [id number] / 00 / [id number] Screw, Medtronic # Set Break Off Ti SCREW N/A: Spine Medtronic #[id number] - [id number] Implanted: Qty: 3 on 08/08/2017 by Harrison Wise MD at [facility] Description:No charge for any implant per Hortensia Bell 11/09/2025 [id number] / 000 / [id number] Screw Solera 4.75 Ti Ns Break Off Left: Spine Med tronic Medtronic #[id number] - [id number] Implanted: Qty: 4 on 11/10/2015 by Harrison Wise MD at [facility] 11/09/2025 [id number] / 0000 / [id number] Yareli 4.75 Ccm Ns Curved 45mm Solera Left: Spine Me dtronic Medtronic #[id number] - [id number] Implanted: Qty: 2 on 11/10/2015 by Harrison Wise MD at [facility] 01/19/2027 [id number] / 0 / [id number] Screw Solera 4.75 Ti Ns Break Off N/A: Back Med tronic Medtronic #[id number] - S0 Implanted: Qty: 6 on 01/19/2017 by Harrison Wise MD at [facility] 01/19/2027 [id number] / 0 / [id number] Screw Solera 7.5x45mm Medtronic N/A: Back Medtr onic #[id number] - S0 Implanted: Qty: 2 on 01/19/2017 by Harrison Wise MD at [facility] Procedures Comments Procedure Name Priority [...] Chronic l ow back pain, 2:58 PM TRAIN BRAKER unspecified back pain laterality, unspecified whether sciatica present PATIENT QUESTIONNAIRE Routine 05/29/2019 12:01 AM TRAIN BRAKER GALV/CLC ONLY - URINE STAT 04/19/2019 Difficul ty walking DRUG (IMMUNOASSAY) - 9:20 PM TRAIN BRAKER COMPREHENSIVE DRUG SCREEN CBC WITH DIFFERENTIAL STAT 04/19/2019 Difficul ty walking 9:00 PM TRAIN BRAKER TROPONIN I STAT 04/19/2019 Difficulty walk ing 9:00 PM TRAIN BRAKER HEPATIC FUNCTION PANEL STAT 04/19/2019 Difficu lty walking (35700) (ALB,T.PRO,BILI 9:00 PM TRAIN BRAKER T,BU/BC,ALT,AST,ALK PHOS) BASIC METABOLIC PANEL STAT 04/19/2019 Difficul ty walking (NA, K, CL, CO2, GLUCOSE, 9:00 PM TRAIN BRAKER BUN, CREATININE, CA) CBC WITH DIFFERENTIAL Routine 04/19/2019 Difficul ty walking 9:[address] HEAD WO CONTRAST STAT 04/19/2019 Difficulty walking 8:53 PM TRAIN BRAKER EMERGENCY SERVICES Routine 04/19/2019 AGREEMENTS AND 12:01 AM TRAIN BRAKER AUTHORIZATIONS CT ABDOMEN PELVIS W STAT 04/03/2019 LLQ abdomi nal pain CONTRAST 12:01 AM TRAIN BRAKER COMP. METABOLIC PANEL STAT 04/02/2019 LLQ abdo gisselle pain (96711) 9:02 PM TRAIN BRAKER CBC WITH DIFFERENTIAL STAT 04/02/2019 LLQ abdo gisselle pain 9:02 PM TRAIN BRAKER EMERGENCY SERVICES Routine 04/02/2019 AGREEMENTS AND 12:01 AM TRAIN BRAKER AUTHORIZATIONS XR ABDOMEN ACUTE SERIES STAT 04/01/2019 Abdomi nal pain, 8:36 PM TRAIN BRAKER unspecified abdominal location EMERGENCY SERVICES Routine 04/01/2019 AGREEMENTS AND 12:01 AM TRAIN BRAKER AUTHORIZATIONS from Last 3 Months Results * MRSA / MSSA Screen by PCR, Nares (06/19/2019 10:01 PM CDT) MRSA Screen by Negative Negative [facility] PCR, Nares SERVICES MSSA Screen by Negative Negative [facility] PCR, Nares SERVICES MRSA/MSSA No No [facility] Positive? SERVICES Specimen Swab - NARES, BOTH SIDES Performing Organization Address [facility] one Number [facility] LABORATORY SERVICES CLIA: [id number], [address] [place] [address] [facility] * MYOGLOBIN SERUM (06/19/2019 8:54 PM CDT) MYOGLOB S 75.4 <=121.0 ng/mL [facility]OR[facility] SERVICES Specimen Blood - ARM, LEFT Narrative Performed At [facility] has been reported to cause a neg ative bias, interpret results relative to [facility] patient's use of biotin. SERVICES Performing Organization Address [facility] Ph one Number [facility]OR[facility] SERVICES CLIA: [id number], [address] [place] [address] [facility] * CREATINE KINASE (06/19/2019 8:54 PM CDT) CK 68 33 - 194 U/L [facility] LABORATORY SERVICES Specimen Blood - ARM, LEFT Performing Organization Address [facility] Ph one Number [facility] SERVICES CLIA: [id number], [address] [place] [address] [facility] * CT THORAX W CONTRAST (06/19/2019 8:50 [...] with the above report. Performing Organization Address City/State/[facility] Ph one Number PACS/VR/DOSE * CT HEAD [...] Resident : Carlos Marshall MD., have reviewed [facility] study and agree with the [...] left third and fourth ribs. Procedure Note [facility], Radiant Results Inft User - 06/19/2019 [...] with the above report. Performing Organization Address [facility] Ph one Number PACS/VR/DOSE * Type and Screen - The Type and Screen expires at midnight on the 3rd day after it was drawn. A current Type and Screen is required when RBCs are requested. For all other blood products, a Type and Screen performed during the current hospitalizati... (06/19/2019 8:26 PM CDT) ABO & RH A POSITIVE LAB Comment: Performed at [facility] Laboratory Services - [facility] Blood Bank [address] [place] [address] Toll Free: [phone] CLIA No. [id number] IAT Negative LAB Comment: Performed at [facility] Laboratory Services - [facility] Blood Bank [address] [place] [address] Toll Free: [phone] CLIA No. [id number] Specimen Blood - VENOUS Performing Organization Address City/[facility] Ph one Number D LAB * aPTT (06/19/2019 8:25 PM CDT) APTT Patient 26 26 - 36 Seconds [facility] LABORATOR Y SERVICES Specimen Blood - ARM, LEFT Performing Organization Address [facility] Ph one Number [facility] LABORATORY SERVICES CLIA: [id number], [address] [place] [address] [facility] * Prothrombin Time (PT) / INR (06/19/2019 8:25 PM CDT) PROTIME PATIENT 10.9 10.1 - 12.6 Seconds [facility] LAB[facility] RATORY SERVICES INR 1.0Comment: Normal INR <1.1; [facility] Warfarin Therapeutic range 2.0 SERVICES to 3.0 or 2.5 to 3.5, depending upon the indications. Specimen Blood - ARM, LEFT Performing Organization Address City/[facility] Ph one Number [facility] SERVICES CLIA: [id number], [address] [place] [address] [facility] * Profile / Hemogram (06/19/2019 8:25 PM CDT) WBC 7.95 4.20 - 10.70 [facility] LABORATORY 10*3/L SERVICES RBC 4.91 4.26 - 5.52 10*6/L [facility] SERVICES HGB 14.3 12.2 - 16.4 g/dL [facility]ORATO RY SERVICES HCT 43.4 38.4 - 49.3 % [facility] MCH 29.1 26.1 - 32.7 pg [facility] MCV 88.4 81.7 - 95.6 fL [facility] MCHC 32.9 31.2 - 35.0 g/dL [facility] LABORATO RY SERVICES PLT 210 150 - 328 10*3/L [facility]ORA T[facility] SERVICES MPV 9.0 (L) 9.8 - 13.0 fL [facility] RDW-CV 14.2 12.1 - 15.4 % [facility] RDW-SD 45.7 38.5 - 51.6 fL [facility] SERVICES NRBC x10^3 <0.01 10*3/L [facility] NRBC/100 WBC 0.0 0.0 - 10.0 /100 WBCs [facility] SERVICES IPF % [facility] SERVICES Specimen Blood - ARM, LEFT Performing Organization Address City/[facility] one Number [facility] SERVICES CLIA: [id number], [address] [place] [address] [facility] * Basic Metabolic Panel (NA, K, CL, CO2, GLUCOSE, BUN, CREATININE, CA) (06/19/2019 8:25 PM CDT) Only the most recent of 2 results within the time period is included. NA 141 135 - 145 mmol/L [facility] LABORATO RY SERVICES K 4.3 3.5 - 5.0 mmol/L [facility] CL 105 98 - 108 mmol/L [facility] LABORATOR Y SERVICES CO2 TOTAL 26 23 - 31 mmol/L [facility] AGAP 10 2 - 16 [facility] BUN 9 7 - 23 mg/dL [facility] GLUCOSE 86 70 - 110 mg/dL [facility] CREATININE 0.80 0.60 - 1.25 mg/dL [facility] LABORAT ORY SERVICES CALCIUM 9.3 8.6 - 10.6 mg/dL [facility]ORATO RY SERVICES eGFR 99.6 mL/min/1.73m2 [facility] Calculation SERVICES (Non-) eGFR 120.8 mL/min/1.73m2 [facility] Calculation SERVICES () Specimen Blood - ARM, LEFT Narrative Performed At Association of Glomerular Filtration Rate (GFR) and S taging of Kidney Disease* [facility] LABORATORY + + +------ + SERVICES [...] Address City/State/Zipcode Ph one Number [facility] SERVICES CLIA: [id number], [address] [place] [address] [facility] * EMERGENCY DEPARTMENT DOCUMENTS (06/19/2019 12:01 AM CDT) Specimen Performing Organization Address City/State/[facility] Ph one Number HIM * XR LUMBAR SPINE 2 VW (05/29/2019 2:58 PM TRAIN BRAKER) Specimen Impressions Performed At FINDINGS/IMPRESSION:: PACS/VR/DOSE Frontal [...] Results Inft User - 05/29/2019 3:15 PM TRAIN BRAKER EXAM: XR LUMBAR SPINE 2 VW HISTORY: [...] PACS/VR/DOSE * PATIENT QUESTIONNAIRE (05/29/2019 12:01 AM TRAIN BRAKER) Specimen Performing Organization Address [facility] Ph one Number HIM * DRUG SCREEN PANEL 2 URINE (04/19/2019 9:20 PM TRAIN BRAKER) AMPHET Negative Negative [facility] KRYSTIN U Negative Negative [facility] BENZO U Presumptive Positive (A) Negative [facility] Cocaine Negative Negative [facility] Metabolite SERVICES METHADONE Negative Negative [facility] OPIATES Presumptive Positive (A) Negative [facility] PCP Negative Negative [facility] THC Presumptive Positive (A) Negative [facility] SERVICES Specimen Urine - URINE, CLEAN CATCH Narrative Performed At Urine Drug Cutoff Ranges [facility] Cocaine: 150 ng/mL SERVICES Benzodiazepines: [...] Address City/State/Zipcode Ph one Number [facility] CLIA: [id number], [address] [place] [address] [facility] * CBC WITH DIFFERENTIAL (04/19/2019 9:00 PM TRAIN BRAKER) Only the most recent of 2 results within the time period is included. WBC 7.15 4.20 - 10.70 [facility] 10*3/L SERVICES RBC 4.05 (L) 4.26 - 5.52 10*6/L [facility] HGB 11.8 (L) 12.2 - 16.4 g/dL [facility]ORAT[facility] RY SERVICES HCT 36.0 (L) 38.4 - 49.3 % [facility] MCV 88.9 81.7 - 95.6 fL [facility] MCH 29.1 26.1 - 32.7 pg [facility] MCHC 32.8 31.2 - 35.0 g/dL [facility]ORATO RY SERVICES RDW-SD 47.5 38.5 - 51.6 fL [facility] RDW-CV 14.7 12.1 - 15.4 % [facility] PLT 182 150 - 328 10*3/L [facility] T[facility] SERVICES MPV 9.5 (L) 9.8 - 13.0 fL [facility] NRBC/100 WBC 0.0 0.0 - 10.0 /100 WBCs [facility] SERVICES NRBC x10^3 <0.01 10*3/L [facility] GRAN MAT (NEUT) 56.9 % [...] Specimen Blood - VENOUS Performing Organization Address [facility] Ph one Number [facility] CLIA: [id number], [address] [place] [address] [facility] * Hepatic Function Panel (ALB, T.PRO, BILI T, BU/BC, ALT, AST, ALK PHOS) (04/19/2019 9:00 PM TRAIN BRAKER) TOTAL BILI 0.3 0.1 - 1.1 mg/dL [...] Specimen Blood - VENOUS Performing Organization Address City/[facility] Ph one Number [facility] CLIA: [id number], [address] [place] [address] [facility] * Troponin I (04/19/2019 9:00 PM TRAIN BRAKER) TROPONIN I 0.004 <=0.034 ng/mL [facility] SERVICES Specimen Blood - VENOUS Narrative Performed At Equal or Less than 0.034 ng/ml---Normal [facility] Note: Cardiac troponin begins [...] Address City/State/[facility] Ph one Number [facility] SERVICES CLIA: [id number], [address] [place] [address] [facility] * EMERGENCY SERVICES AGREEMENTS AND AUTHORIZATIONS (04/19/2019 12:01 AM TRAIN BRAKER) Only the most recent of 3 results within the time period is included. Specimen Performing Organization Address City/State/[facility] Ph one Number HIM * COMP. METABOLIC PANEL (12932) (04/02/2019 9:02 PM TRAIN BRAKER) NA 143 135 - 145 mmol/L [facility] LABORATO RY SERVICES K 3.9 3.5 - 5.0 mmol/L [facility] LABORATO RY SERVICES CL 106 98 - 108 mmol/L [facility] LABORATOR Y SERVICES CO2 TOTAL 24 23 - 31 mmol/L [facility] SERVICES AGAP 13 2 - 16 [facility] BUN 15 7 - 23 mg/dL [facility] SERVICES GLUCOSE 93 70 - 110 mg/dL [facility] SERVICES CREATININE 0.71 0.60 - 1.25 mg/dL [facility] LABORAT ORY SERVICES TOTAL BILI 0.5 0.1 - 1.1 mg/dL [facility] LABORATOR Y SERVICES CALCIUM 10.1 8.6 - 10.6 mg/dL [facility] LABORATO RY SERVICES T PROTEIN 7.6 6.3 - 8.2 g/dL [facility] ALBUMIN 4.6 3.5 - 5.0 g/dL [facility] ALK PHOS 74 34 - 122 U/L [facility] ALTv 28 5 - 50 U/L [facility] AST(SGOT) 41 (H) 13 - 40 U/L [facility] eGFR 114.4 mL/min/1.73m2 [facility] Calculation SERVICES (Non-) eGFR 138.6 mL/min/1.73m2 [facility] Calculation SERVICES () Specimen Blood - VENOUS Narrative Performed At Association of Glomerular Filtration Rate (GFR) and S taging of Kidney Disease* [facility] + + +------ + SERVICES [...] Address City/State/Zipcode Ph one Number [facility] CLIA: [id number], [address] [place] [address] [facility] * XR ABDOMEN ACUTE SERIES (04/01/2019 8:36 PM TRAIN BRAKER) Specimen Impressions Performed At No acute cardiopulmonary [...] Results Inft User - 04/01/2019 9:45 PM TRAIN BRAKER XR ABDOMEN ACUTE SERIES HISTORY: abdominal pain, [...] Plan / Dates Group Medicaid [employer] [place] [employer] xxxxxxxxx 2015-P P O MARGI X OF [facility] [address] [place] [address] [address] am[place] (Home) [place] [phone] Harvey Christie Hearing Self 1960 [address] [facility] [address] [facility] [address] [employer] (Home) [place] [address] Retail Advance Directives Relationship Healthcare Agent Relationship Communicat ion Name Emergency Contact Primary healthcare agent [phone] (M obile) Luanne Carson Child First alternate healthcare agent Rico Christie
--- OUTSIDE RECORDS SUMMARY | 2019-11-04 15:54 | XMS REPORT | Clinical Summary ---
Author Author [facility] - Health Organization [facility] - Health Address Unknown Phone Unavailable Care Team Providers Care Licensed Sales Producer Name Role Phone Gabriella Coyle MD 12 Unavailable Pcp, Patient Does Not Have A PCP [phone] Allergies Comments Active Allergy Reactions Severity Noted Date Penicillins Rash 11/09/2015 Medications No known medications Active Problems Problem Noted Date Trauma 06/19/2019 Concussion with loss of consciousness 06/19/[address] 06/19/2019 Apnea for greater than 15 seconds 06/19/2019 Infection 09/28/2017 Chronic midline low back pain without sciatica 09/27 Overview: Added automatically from request for gerber wendy [id number] Wound dehiscence 08/23/2017 Hardware complicating wound infection 08/18/2017 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 Pt informed 03/13/16.- [...] Benzodiazepine abuse 04/19/2019 Emergency Emergency Medicine Team, [facility] Health Maintenance HEALTH MAINTENANCE 04/18/2019 Telephone Public [...] Implanted Type Area Manufactur er 04/26/20172017-40 / [id number] / [id number] Dbm Putty Maxxeus 10cc Cts # BONE Left: Spin e Community - [id number] Tissue Implanted: Qty: 1 on 11/10/2015 by Services Harrison Wise MD at [facility] 07/07/2020 1234-12 / [id number] / [id number] Cancellous Crushed, Community BONE Left: Spine [facility] Tissue Services (1 10mm) Freeze Tissue Dried 60.0 Cc #1234-12 - [id number] Services Implanted: Qty: 1 on 11/10/2015 by Harrison Wise MD at [facility] 10/16/2021 1235-12 / [id number] / [id number] Cancellous Crushed, [facility] BONE N/A: Back [facility] Tissue Services (1 10mm) Freeze Tissue Dried 90.0 Cc #1235-12 - Services [id number] Implanted: Qty: 1 on 01/19/2017 by Harrison Wise MD at [facility] 09/22/2018 / [id number] / [id number] Dbm Putty Maxxeus 10cc Cts # BONE N/A: Back [facility] - [id number] Tissue Implanted: Qty: 1 on 01/19/2017 by Services Harrison Wise MD at [facility] 07/23/2018803526 Duraseal, Covidien Improved Dural Duraseal N/A: Spine Tyco/Covid Sealant System 5ml #[id number] - [id number] ien Implanted: Qty: 1 on 08/08/2017 by Harrison Wise MD at [facility] 01/19/2027 [id number] / 0 / [id number] Yareli 4.75 Ccm Ns Curved 70mm Solara YARELI N/A: Back Medtronic Medtronic #[id number] - [id number] Implanted: Qty: 2 on 01/19/2017 by Harrison Wise MD at [facility] 11/09/2025 [id number] / 0000 / [id number] Screw Solera 6.5x30mm Medtronic SCREW Left: Spine Medtronic #[id number] - [id number] Implanted: Qty: 2 on 11/10/2015 by Harrison Wise MD at [facility] 11/09/2025 [id number] / 0000 / [id number] Screw, Medtronic Solara 6.5x45 SCREW Left: Spine Medtronic #[id number] - [id number] Implanted: Qty: 2 on 11/10/2015 by Harrison Wise MD at [facility] 01/19/2027 [id number] / 0 / [id number] Screw Solera 8.5x30mm Mas Medtronic SCREW N/A: Back Medtronic #[id number] Implanted: Qty: 2 on 01/19/2017 by Harrison Wise MD at [facility] 01/19/2027 [id number] / 0 / [id number] Screw, Medtronic Solara 6.5x45 SCREW N/A: Back Medtronic #[id number] - S0 Implanted: Qty: 2 on 01/19/2017 by Harrison Wise MD at [facility] 08/09/2027 [id number] / 00 / [id number] Screw, Medtronic # Set Break Off Ti SCREW N/A: Spine Medtronic #[id number] - [id number] Implanted: Qty: 3 on 08/08/2017 by Harrison Wise MD at [facility] Description:No charge for any implant per Hortensia Bell 11/09/2025 [id number] / 000 / [id number] Screw Solera 4.75 Ti Ns Break Off Left: Spine Med tronic Medtronic #[id number] - [id number] Implanted: Qty: 4 on 11/10/2015 by Harrison Wise MD at [facility] 11/09/2025 [id number] / 0000 / [id number] Yareli 4.75 Ccm Ns Curved 45mm Solera Left: Spine Me dtronic Medtronic #[id number] - [id number] Implanted: Qty: 2 on 11/10/2015 by Harrison Wise MD at [facility] 01/19/2027 [id number] / 0 / [id number] Screw Solera 4.75 Ti Ns Break Off N/A: Back Med tronic Medtronic #[id number] - S0 Implanted: Qty: 6 on 01/19/2017 by Harrison Wise MD at [facility] 01/19/2027 [id number] / 0 / [id number] Screw Solera 7.5x45mm Medtronic N/A: Back Medtr onic #[id number] - S0 Implanted: Qty: 2 on 01/19/2017 by Harrison Wise MD at [facility] Procedures Comments Procedure Name Priority Date/Time Associated [...] DEPARTMENT Routine 06/19/2019 DOCUMENTS 12:01 AM CDT AUTHORIZATION FOR RELEASE Routine 06/16/2019 OF PHI 12:01 AM CDT XR LUMBAR SPINE 2 VW Routine 05/29/2019 Chronic l ow back pain, 2:58 PM DROP BOARD WORKER unspecified back pain laterality, unspecified whether sciatica present PATIENT QUESTIONNAIRE Routine 05/29/2019 12:01 AM DROP BOARD WORKER GALV/CLC ONLY - URINE STAT 04/19/2019 Difficul ty walking DRUG (IMMUNOASSAY) - 9:20 PM DROP BOARD WORKER COMPREHENSIVE DRUG SCREEN CBC WITH DIFFERENTIAL STAT 04/19/2019 Difficul ty walking 9:00 PM DROP BOARD WORKER TROPONIN I STAT 04/19/2019 Difficulty walk ing 9:00 PM DROP BOARD WORKER HEPATIC FUNCTION PANEL STAT 04/19/2019 Difficu lty walking (21585) (ALB,T.PRO,BILI 9:00 PM DROP BOARD WORKER T,BU/BC,ALT,AST,ALK PHOS) BASIC METABOLIC PANEL STAT 04/19/2019 Difficul ty walking (NA, K, CL, CO2, GLUCOSE, 9:00 PM DROP BOARD WORKER BUN, CREATININE, CA) CBC WITH DIFFERENTIAL Routine 04/19/2019 Difficul ty walking 9:[address] HEAD WO CONTRAST STAT 04/19/2019 Difficulty walking 8:53 PM DROP BOARD WORKER EMERGENCY SERVICES Routine 04/19/2019 AGREEMENTS AND 12:01 AM DROP BOARD WORKER AUTHORIZATIONS CT ABDOMEN PELVIS W STAT 04/03/2019 LLQ abdomi nal pain CONTRAST 12:01 AM DROP BOARD WORKER COMP. METABOLIC PANEL STAT 04/02/2019 LLQ abdo gisselle pain (99217) 9:02 PM DROP BOARD WORKER CBC WITH DIFFERENTIAL STAT 04/02/2019 LLQ abdo gisselle pain 9:02 PM DROP BOARD WORKER EMERGENCY SERVICES Routine 04/02/2019 AGREEMENTS AND 12:01 AM DROP BOARD WORKER AUTHORIZATIONS XR ABDOMEN ACUTE SERIES STAT 04/01/2019 Abdomi nal pain, 8:36 PM DROP BOARD WORKER unspecified abdominal location EMERGENCY SERVICES Routine 04/01/2019 AGREEMENTS AND 12:01 AM DROP BOARD WORKER AUTHORIZATIONS from Last 3 Months Results * MRSA / MSSA Screen by PCR, Nares (06/19/2019 10:01 PM CDT) Pathologist [facility] MRSA Screen by Negative Negative [facility] PCR, Nares SERVICES MSSA Screen by Negative Negative [facility] PCR, Nares SERVICES MRSA/MSSA No No [facility] Positive? SERVICES Specimen Swab - NARES, BOTH SIDES Performing Organization Address City/[facility] Ph one Number [facility] SERVICES CLIA: [id number], [address] [place] [address] [facility] * MYOGLOBIN SERUM (06/19/2019 8:54 PM CDT) MYOGLOB S 75.4 <=121.0 ng/mL [facility] LABORATORY SERVICES Specimen Blood - ARM, LEFT Narrative Performed At Biotin has been reported to cause a neg ative bias, interpret results relative to [facility] patient's use of biotin. SERVICES Performing Organization Address City/[facility] Ph one Number [facility] SERVICES CLIA: [id number], [address] [place] [address] [facility] * CREATINE KINASE (06/19/2019 8:54 PM CDT) CK 68 33 - 194 U/L [facility]ORATORY SERVICES Specimen Blood - ARM, LEFT Performing Organization Address City/State/Zipcode Ph one Number [facility] SERVICES CLIA: [id number], [address] [place] [address] * CT THORAX W CONTRAST (06/19/2019 8:50 [...] with the above report. Performing Organization Address [facility]/State[facility] Ph one Number PACS/VR/DOSE * CT HEAD [...] present on 10/17/18 CT, clinically correlate. I, Erd-Wade Peter, MD., have reviewed this study and [...] by Resident : Melissa Barnettwuagvanessa Report change I, Olivier Green reviewed this [...] spine. Preliminary Report Dictated by Resident: Melissa Barnettwuagvanessa Report change IOlivier reviewed this study and agree with the above report with the following minor modifications, Mild compression deformities of T10, T9, and T7 vertebral bodies appeared to have been present on 10/17/18 CT, clinically correlate. Olivier Terrazas MD., have reviewed this study and agree with the above report. Performing Organization Address City/State/[facility] Ph one Number PACS/VR/DOSE * CT ABDOMEN [...] with the above report. Performing Organization Address City/State/[facility] Ph one Number PACS/VR/DOSE * XR CHEST 1 VW (06/19/2019 8:32 PM CDT) Specimen Impressions Performed At No acute thoracic abnormality. PACS/VR/DOSE Preliminary Report Dictated by Resident : Carlos Marshall MD., have reviewed [facility] study and agree with the above report. [...] left third and fourth ribs. Procedure Note Rust, Radiant Results Inft User - 06/19/2019 9:15 [...] with the above report. Performing Organization Address City/[facility] Ph one Number PACS/VR/DOSE * Type and Screen - The Type and Screen expires at midnight on the 3rd day after it was drawn. A current Type and Screen is required when RBCs are requested. For all other blood products, a Type and Screen performed during the current hospitalizati... (06/19/2019 8:26 PM CDT) ABO & RH A POSITIVE LAB Comment: Performed at [facility] Laboratory Services - [facility] Blood Bank [address] [place] [address] Toll Free: [phone] CLIA No. [id number] IAT Negative LAB Comment: Performed at [facility] Laboratory Services - [facility] Blood Bank [address] [place] [address] Toll Free: [phone] CLIA No. [id number] Specimen Blood - VENOUS Performing Organization Address City/[facility] Ph one Number D LAB * aPTT (06/19/2019 8:25 PM CDT) APTT Patient 26 26 - 36 Seconds [facility] LABORATOR Y SERVICES Specimen Blood - ARM, LEFT Performing Organization Address City/[facility] Ph one Number [facility]OR[facility]ORY SERVICES CLIA: [id number], [address] [place] [address] [facility] * Prothrombin Time (PT) / INR (06/19/2019 8:25 PM CDT) PROTIME PATIENT 10.9 10.1 - 12.6 Seconds [facility] LABO RATORY SERVICES INR 1.0Comment: Normal INR <1.1; [facility] Warfarin Therapeutic range 2.0 SERVICES to 3.0 or 2.5 to 3.5, depending upon the indications. Specimen Blood - ARM, LEFT Performing Organization Address [facility] Ph one Number [facility] SERVICES CLIA: [id number], [address] [place] [address] [facility] * Profile / Hemogram (06/19/2019 8:25 PM CDT) Pathologist [facility] WBC 7.95 4.20 - 10.70 [facility] LABORATORY 10*3/L SERVICES RBC 4.91 4.26 - 5.52 10*6/L [facility] HGB 14.3 12.2 - 16.4 g/dL [facility] LABORATO RY SERVICES HCT 43.4 38.4 - 49.3 % [facility]ORATORY SERVICES MCH 29.1 26.1 - 32.7 pg [facility] SERVICES MCV 88.4 81.7 - 95.6 fL [facility]AT[facility] SERVICES MCHC 32.9 31.2 - 35.0 g/dL [facility] LABORATO RY SERVICES PLT 210 150 - 328 10*3/L [facility] LABORA TORY SERVICES MPV 9.0 (L) 9.8 - 13.0 fL [facility]AT[facility] SERVICES RDW-CV 14.2 12.1 - 15.4 % [facility] SERVICES RDW-SD 45.7 38.5 - 51.6 fL [facility] SERVICES NRBC x10^3 <0.01 10*3/L [facility] SERVICES NRBC/100 WBC 0.0 0.0 - 10.0 /100 WBCs [facility] LAB[facility] RATORY SERVICES IPF % [facility] SERVICES Specimen Blood - ARM, LEFT Performing Organization Address [facility] Ph one Number [facility] SERVICES CLIA: [id number], [address] [place] [address] [facility] * Basic Metabolic Panel (NA, K, CL, CO2, GLUCOSE, BUN, CREATININE, CA) (06/19/2019 8:25 PM CDT) Only the most recent of 2 results within the time period is included. NA 141 135 - 145 mmol/L [facility]OR[facility] RY SERVICES K 4.3 3.5 - 5.0 mmol/L [facility] LABORAT[facility] RY SERVICES CL 105 98 - 108 mmol/L [facility] LABORATOR Y SERVICES CO2 TOTAL 26 23 - 31 mmol/L [facility] SERVICES AGAP 10 2 - 16 [facility] SERVICES BUN 9 7 - 23 mg/dL [facility] SERVICES GLUCOSE 86 70 - 110 mg/dL [facility] SERVICES CREATININE 0.80 0.60 - 1.25 mg/dL [facility] LABORAT ORY SERVICES CALCIUM 9.3 8.6 - 10.6 mg/dL [facility] LABORATO RY SERVICES eGFR 99.6 mL/min/1.73m2 [facility] Calculation SERVICES (Non-) eGFR 120.8 mL/min/1.73m2 [facility] Calculation SERVICES () Specimen Blood - ARM, LEFT Narrative Performed At Association of Glomerular Filtration Rate (GFR) and S taging of Kidney Disease* [facility] + + +------ + [...] Performing Organization Address City/State/Zipcode Ph one Number [facility] SERVICES CLIA: [id number], [address] [place] [address] [phone] [place] [address] * EMERGENCY DEPARTMENT DOCUMENTS (06/19/2019 12:01 AM CDT) Specimen Performing Organization Address City/State/Zipcode Ph one Number HIM * AUTHORIZATION FOR RELEASE OF PHI (06/16/2019 12:01 AM CDT) Specimen Performing Organization Address City/State/Zipcode Ph one Number HIM * XR LUMBAR SPINE 2 VW (05/29/2019 2:58 PM DROP BOARD WORKER) Specimen Impressions Performed At FINDINGS/IMPRESSION:: PACS/VR/DOSE Frontal [...] Results Inft User - 05/29/2019 3:15 PM DROP BOARD WORKER EXAM: XR LUMBAR SPINE 2 VW HISTORY: [...] PACS/VR/DOSE * PATIENT QUESTIONNAIRE (05/29/2019 12:01 AM DROP BOARD WORKER) Specimen Performing Organization Address City/State/Zipcode Ph one Number HIM * DRUG SCREEN PANEL 2 URINE (04/19/2019 9:20 PM DROP BOARD WORKER) AMPHET Negative Negative [facility] KRYSTIN U Negative Negative [facility] BENZO U Presumptive Positive (A) Negative [facility] Cocaine Negative Negative [facility] Metabolite SERVICES METHADONE Negative Negative [facility] SERVICES OPIATES Presumptive Positive (A) Negative [facility] SERVICES PCP Negative Negative [facility] SERVICES THC Presumptive Positive (A) Negative [facility] SERVICES Specimen Urine - URINE, CLEAN CATCH Narrative Performed At Urine Drug Cutoff Ranges [facility] Cocaine: 150 ng/mL SERVICES Benzodiazepines: 200 ng/mL Methadone: 300 ng/mL Amphetamine: 1,000 ng/mL Opiates: 300 ng/mL Cannabinoids: 50 ng/mL Phencyclidine: 25 ng/mL Barbiturates: 200 ng/mL The results are to be used only for med ical (i.e., treatment) purposes. Unconfirmed screening results must not be used for non-medical purposes (e.g., employment testing, legal testing). Performing Organization Address City/State/Zipcode Ph one Number [facility] SERVICES CLIA: [id number], [address] [place] [address] [facility] * CBC WITH DIFFERENTIAL (04/19/2019 9:00 PM DROP BOARD WORKER) Only the most recent of 2 results within the time period is included. WBC 7.15 4.20 - 10.70 [facility] LAB[facility] 10*3/L SERVICES RBC 4.05 (L) 4.26 - 5.52 10*6/L [facility] LABO RATORY SERVICES HGB 11.8 (L) 12.2 - 16.4 g/dL [facility] LABORATO RY SERVICES HCT 36.0 (L) 38.4 - 49.3 % [facility] MCV 88.9 81.7 - 95.6 fL [facility] MCH 29.1 26.1 - 32.7 pg [facility] MCHC 32.8 31.2 - 35.0 g/dL [facility] LABORATO RY SERVICES RDW-SD 47.5 38.5 - 51.6 fL [facility] SERVICES RDW-CV 14.7 12.1 - 15.4 % [facility] PLT 182 150 - 328 10*3/L [facility] LABORA TORY SERVICES MPV 9.5 (L) 9.8 - 13.0 fL [facility] SERVICES NRBC/100 WBC 0.0 [...] Ph one Number [facility] CLIA: [id number], [address] [place] [address] [facility] * Hepatic Function Panel (ALB, T.PRO, BILI T, BU/BC, ALT, AST, ALK PHOS) (04/19/2019 9:00 PM DROP BOARD WORKER) TOTAL BILI 0.3 0.1 - 1.1 mg/dL [...] SERVICES AST(SGOT) 35 13 - 40 U/L [facility] SERVICES Specimen Blood - VENOUS Performing Organization Address [facility] one Number [facility] SERVICES CLIA: [id number], [address] [place] [address] [facility] * Troponin I (04/19/2019 9:00 PM DROP BOARD WORKER) TROPONIN I 0.004 <=0.034 ng/mL [facility] SERVICES Specimen Blood - VENOUS Narrative Performed At Equal or Less than 0.034 ng/ml---Normal [facility] Note: Cardiac troponin [...] patient's use of biotin. Performing Organization Address [facility] one Number [facility] SERVICES CLIA: [id number], [address] [place] [address] [facility] * EMERGENCY SERVICES AGREEMENTS AND AUTHORIZATIONS (04/19/2019 12:01 AM DROP BOARD WORKER) Only the most recent of 3 results within the time period is included. Specimen Performing Organization Address [facility] one Number HIM * COMP. METABOLIC PANEL (85954) (04/02/2019 9:02 PM DROP BOARD WORKER) NA 143 135 - 145 mmol/L [facility] LABORATO RY SERVICES K 3.9 3.5 - 5.0 mmol/L [facility] LABORATO RY SERVICES CL 106 98 - 108 mmol/L [facility] LABORATOR Y SERVICES CO2 TOTAL 24 23 - 31 mmol/L [facility] SERVICES AGAP 13 2 - 16 [facility] SERVICES BUN 15 7 - 23 mg/dL [facility] GLUCOSE 93 70 - 110 mg/dL [facility] CREATININE 0.71 0.60 - 1.25 mg/dL [facility] LABORAT ORY SERVICES TOTAL BILI 0.5 0.1 - 1.1 mg/dL [facility] CALCIUM 10.1 8.6 - 10.6 mg/dL [facility] LABORATO RY SERVICES T PROTEIN 7.6 6.3 - 8.2 g/dL [facility] ALBUMIN 4.6 3.5 - 5.0 g/dL [facility] ALK PHOS 74 34 - 122 U/L [facility] ALTv 28 5 - 50 U/L [facility] AST(SGOT) 41 (H) 13 - 40 U/L [facility] eGFR 114.4 mL/min/1.73m2 [facility] Calculation SERVICES (Non-) eGFR 138.6 mL/min/1.73m2 [facility] Calculation SERVICES () Specimen Blood - VENOUS Narrative Performed At Association of Glomerular Filtration Rate (GFR) and S taging of Kidney Disease* [facility] + + +------ + [...] Performing Organization Address City/State/Zipcode Ph one Number [facility] CLIA: [id number], [address] [place] [address] * XR ABDOMEN ACUTE SERIES (04/01/2019 8:36 PM DROP BOARD WORKER) Specimen Impressions Performed At No acute cardiopulmonary process. Bibasilar atelectas is. PACS/VR/DOSE Nonobstructive bowel gas pattern. Preliminary Report Dictated by Resident : Oriana Eddy MD., have review ed this study and [...] Results Inft User - 04/01/2019 9:45 PM DROP BOARD WORKER XR ABDOMEN ACUTE SERIES HISTORY: abdominal pain, [...] gas pattern. Preliminary Report Dictated by Resident: Oriana Eddy MD., have reviewed this study and agree with the above report. Performing Organization Address City/State/Zipcode Ph one Number PACS/VR/DOSE from Last 3 Months Insurance Type Payer Benefit Subscriber ID Effective Phone Address Plan / Dates Group Medicaid [employer] [place] [employer] xxxxxxxxx 2015-P [place] [address] [address] [place] [address] [employer] Advance Directives Relationship Healthcare Agent Relationship Communicat ion Name Emergency Contact Primary healthcare agent [phone] (M obile) Luanne Carson Child First alternate healthcare agent Rico Christie
--- OUTSIDE RECORDS SUMMARY | 2019-11-04 15:55 | XMS REPORT | Clinical Summary ---
Author Author [facility] - Health Organization [facility] - Health Address Unknown Phone Unavailable Care Team Providers Care Packaging Associate Name Role Phone Gabriella Coyle MD 12 Unavailable Pcp, Patient Does Not Have A PCP [phone] Allergies Comments Active Allergy Reactions Severity Noted Date Penicillins Rash 11/09/2015 Medications End Date Status Medication Sig Dispensed Refills Start Date Active venlafaxine XR 150 mg 24 Take 1 30 capsule 1 0 hr capsuleIndications: capsule by 0 KELSIE (generalized anxiety mouth daily disorder) with breakfast. Active Problems Problem Noted Date Trauma 06/19/2019 Concussion with loss of consciousness 06/19/[address] 06/19/2019 Apnea for greater than 15 seconds 06/19/2019 Infection 09/28/2017 Chronic midline low back pain without sciatica 09/27 Overview: Added automatically from request for buzz nguyen [id number] Wound dehiscence 08/23/2017 Hardware complicating wound infection 08/18/2017 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 09/21/2016 Overview: Added automatically from request for buzz nguyen [id number] Chronic diastolic congestive heart failure 7 Narcotic [...] Type Specialty Tony Yost MD Trauma 06/19/2019 Emergency Surgery Raj Christensen MD 05/29/2019 Hospital Radiology Encounter Raj Christensen MD Lumbar radiculopathy (Primary Dx); Cervical stenosis of spinal canal 05/29/2019 Office Visit Orthopedic Surgery Mallory Sotomayor MD Chronic low back pain, unspecified back pain laterality, unspecified whether sciatica present (Primary Dx) 05/28/2019 Abstract Orthopedic Surgery Alvaro Cano MD Narcotic abuse (Primary Dx); Difficulty walking; Opioid abuse; Benzodiazepine abuse 04/19/2019 Emergency Emergency Medicine Team, [facility] HEALTH MAINTENANCE 04/18/2019 Telephone Public Health & Gen era Preventive Medicine oGlden Rivera, RN HEALTH MAINTENANCE (High ED Utilization) 04/18/2019 Telephone Public Health & Gen era Preventive Medicine from Last 3 Months Immunizations [...] Implanted Type Area Manufactur er 04/26/20172017-40 / [id number] / [id number] Dbm Putty Maxxeus 10cc Cts #2017- BONE Left: [facility] - [id number] Tissue Implanted: Qty: 1 on 11/10/2015 by Services Harrison Wise MD at [facility] 07/07/2020 1234-12 / [id number] / [id number] Cancellous Crushed, Community BONE Left: [facility] Tissue Services (1 10mm) Freeze Tissue Dried 60.0 Cc #1234-12 - [id number] Services Implanted: Qty: 1 on 11/10/2015 by Harrison Wise MD at [facility] 10/16/2021 1235-12 / [id number] / [id number] Cancellous Crushed, [facility] BONE N/A: Back [facility] Tissue Services (1 10mm) Freeze Tissue Dried 90.0 Cc #1235-12 - Services [id number] Implanted: Qty: 1 on 01/19/2017 by Harrison Wise MD at [facility] 09/22/20182017- / [id number] / [id number] Dbm Putty Maxxeus 10cc Cts #2017- BONE N/A: Back [facility] - [id number] Tissue Implanted: Qty: 1 on 01/19/2017 by Services Harrison Wise MD at [facility] 07/23/2018 [id number] / / [id number] Duraseal, Covidien Improved Dural Duraseal N/A: Spine Tyco/Covid Sealant System 5ml #[id number] - S00 ien Implanted: Qty: 1 on 08/08/2017 by Harrison Wise MD at [facility] 01/19/2027 [id number] / 0 / [id number] Yareli 4.75 Ccm Ns Curved 70mm Solara YARELI N/A: Back Medtronic Medtronic #[id number] - S0 Implanted: Qty: 2 on 01/19/2017 by Harrison Wise MD at [facility] 11/09/2025 [id number] / 0000 / [id number] Screw Solera 6.5x30mm Medtronic SCREW Left: Spine Medtronic #[id number] - [id number] Implanted: Qty: 2 on 11/10/2015 by Harrison Wise MD at [facility] 11/09/2025 [id number] / 0000 / [id number] Screw, Medtronic Solara 6.5x45 SCREW Left: Spine Medtronic #[id number] - [id number] Implanted: Qty: 2 on 11/10/2015 by Harrison Wise MD at [facility] 01/19/2027 [id number] / 0 / [id number] Screw Solera 8.5x30mm Mas Medtronic SCREW N/A: Back Medtronic #[id number] Implanted: Qty: 2 on 01/19/2017 by Harrison Wise MD at [facility] 01/19/2027 [id number] / 0 / [id number] Screw, Medtronic Solara 6.5x45 SCREW N/A: Back Medtronic #[id number] - S0 Implanted: Qty: 2 on 01/19/2017 by Harrison Wise MD at [facility] 08/09/2027 [id number] / 00 / [id number] Screw, Medtronic # Set Break Off Ti SCREW N/A: Spine Medtronic #[id number] - S00 Implanted: Qty: 3 on 08/08/2017 by Harrison Wise MD at [facility] Description:No charge for any implant per Cordell [place]te[place] Rep 11/09/2025 [id number] / 000 / [id number] Screw Solera 4.75 Ti Ns Break Off Left: Spine Med tronic Medtronic #[id number] - [id number] Implanted: Qty: 4 on 11/10/2015 by Harrison Wise MD at [facility] 11/09/2025 [id number] / 0000 / [id number] Yareli 4.75 Ccm Ns Curved 45mm Solera Left: Spine Me dtronic Medtronic #[id number] - [id number] Implanted: Qty: 2 on 11/10/2015 by Harrison Wise MD at [facility] 01/19/2027 [id number] / 0 / [id number] Screw Solera 4.75 Ti Ns Break Off N/A: Back Med tronic Medtronic #[id number] - S0 Implanted: Qty: 6 on 01/19/2017 by Harrison Wise MD at [facility] 01/19/2027 [id number] / 0 / [id number] Screw Solera 7.5x45mm Medtronic N/A: Back Medtr onic #[id number] - S0 Implanted: Qty: 2 on 01/19/2017 by Harrison Wise MD at [facility] Procedures Comments Procedure Name Priority [...] GLUCOSE, 8:25 PM CDT BUN, CREATININE, CA) HOSPITAL ADMISSION Routine 06/19/2019 12:01 AM CDT HOSPITAL ADMISSION Routine 06/19/2019 12:01 AM CDT EMERGENCY DEPARTMENT Routine 06/19/2019 DOCUMENTS 12:01 AM CDT AUTHORIZATION FOR RELEASE Routine 06/16/2019 OF PHI 12:01 AM CDT AUTHORIZATION FOR RELEASE Routine 06/16/2019 OF PHI 12:01 AM CDT XR LUMBAR SPINE 2 VW Routine 05/29/2019 Chronic l ow back pain, 2:58 PM FOLDER AND NOTCHER unspecified back pain laterality, unspecified whether sciatica present PATIENT QUESTIONNAIRE Routine 05/29/2019 12:01 AM FOLDER AND NOTCHER GALV/CLC ONLY - URINE STAT 04/19/2019 Difficul ty walking DRUG (IMMUNOASSAY) - 9:20 PM FOLDER AND NOTCHER COMPREHENSIVE DRUG SCREEN CBC WITH DIFFERENTIAL STAT 04/19/2019 Difficul ty walking 9:00 PM FOLDER AND NOTCHER TROPONIN I STAT 04/19/2019 Difficulty walk ing 9:00 PM FOLDER AND NOTCHER HEPATIC FUNCTION PANEL STAT 04/19/2019 Difficu lty walking (38165) (ALB,T.PRO,BILI 9:00 PM FOLDER AND NOTCHER T,BU/BC,ALT,AST,ALK PHOS) BASIC METABOLIC PANEL STAT 04/19/2019 Difficul ty walking (NA, K, CL, CO2, GLUCOSE, 9:00 PM FOLDER AND NOTCHER BUN, CREATININE, CA) CBC WITH DIFFERENTIAL Routine 04/19/2019 Difficul ty walking 9:00 PM [address]ER CT HEAD WO CONTRAST STAT 04/19/2019 Difficulty walking 8:53 PM FOLDER AND NOTCHER EMERGENCY SERVICES Routine 04/19/2019 AGREEMENTS AND 12:01 AM FOLDER AND NOTCHER AUTHORIZATIONS from Last 3 Months Results * MRSA / MSSA Screen by PCR, Nares (06/19/2019 10:01 PM CDT) MRSA Screen by Negative Negative [facility] PCR, Nares SERVICES MSSA Screen by Negative Negative [facility] PCR, Nares SERVICES MRSA/MSSA No No [facility] Positive? SERVICES Specimen Swab - NARES, BOTH SIDES Performing Organization Address [facility] one Number [facility] SERVICES CLIA: [id number], [address] [place] [address] [facility] * MYOGLOBIN SERUM (06/19/2019 8:54 PM CDT) MYOGLOB S 75.4 <=121.0 ng/mL [facility] SERVICES Specimen Blood - ARM, LEFT Narrative Performed At [facility] has been reported to cause a neg ative bias, interpret results relative to [facility] patient's use of biotin. SERVICES Performing Organization Address [facility] one Number [facility] SERVICES CLIA: [id number], [address] [place] [address] [facility] * CREATINE KINASE (06/19/2019 8:54 PM CDT) CK 68 33 - 194 U/L [facility] SERVICES Specimen Blood - ARM, LEFT Performing Organization Address [facility] one Number [facility] SERVICES CLIA: [id number], [address] [place] [id number] [facility] * CT THORAX W CONTRAST (06/19/2019 8:50 [...] with the above report. Performing Organization Address City/State/[facility] Ph one Number PACS/VR/DOSE * CT LUMBAR [...] by Resident: Melissa Lau Ikwuagwu Report change IOlivier reviewed this study and agree with the above report with the following minor modifications, Mild compression deformities of T10, T9, and T7 vertebral bodies appeared to have been present on 10/17/18 CT, clinically correlate. I, Olivier Green MD., have reviewed this study and agree [...] dictated CT chest for detailed evaluation of [facility] racic findings. LIVER: No focal hepatic lesions. [...] Preliminary Report Dictated by Resident: Melissa Zamorano I Carlos Matamoros MD., have reviewed this study and agree with the above report. Performing Organization Address [facility] one Number PACS/VR/DOSE * Type and Screen - The Type and Screen expires at midnight on the 3rd day after it was drawn. A current Type and Screen is required when RBCs are requested. For all other blood products, a Type and Screen performed during the current hospitalizati... (06/19/2019 8:26 PM CDT) Pathologist [facility] ABO & RH A POSITIVE LAB Comment: Performed at [facility] Laboratory Services - [facility] Blood Bank [address] [place] [address] Toll Free: [phone] CLIA No. [id number] IAT Negative LAB Comment: Performed at [facility] Laboratory Services - [facility] Blood [place] [address] Toll Free: [phone] CLIA No. [id number] Specimen Blood - VENOUS Performing Organization Address [facility] Number D LAB * aPTT (06/19/2019 8:25 PM CDT) [facility] APTT Patient 26 26 - 36 Seconds [facility] Y SERVICES Specimen Blood - ARM, LEFT Performing Organization Address [facility] one Number [facility] SERVICES CLIA: [id number], [address] [place] [address] [facility] * Prothrombin Time (PT) / INR (06/19/2019 8:25 PM CDT) Pathologist [facility] PROTIME PATIENT 10.9 10.1 - 12.6 Seconds [facility] SERVICES INR 1.0Comment: Normal INR <1.1; [facility] Warfarin Therapeutic range 2.0 SERVICES to 3.0 or 2.5 to 3.5, depending upon the indications. Specimen Blood - ARM, LEFT Performing Organization Address [facility] one Number [facility] SERVICES CLIA: [id number], [address] [place] [address] [facility] * Profile / Hemogram (06/19/2019 8:25 PM CDT) WBC 7.95 4.20 - 10.70 [facility] 10*3/L SERVICES RBC 4.91 4.26 - 5.52 10*6/L [facility] SERVICES HGB 14.3 12.2 - 16.4 g/dL [facility] SERVICES HCT 43.4 38.4 - 49.3 % [facility] SERVICES MCH 29.1 26.1 - 32.7 pg [facility] SERVICES MCV 88.4 81.7 - 95.6 fL [facility] MCHC 32.9 31.2 - 35.0 g/dL [facility] RY SERVICES PLT 210 150 - 328 10*3/L [facility] SERVICES MPV 9.0 (L) 9.8 - 13.0 fL [facility] RDW-CV 14.2 12.1 - 15.4 % [facility] RDW-SD 45.7 38.5 - 51.6 fL [facility] SERVICES NRBC x10^3 <0.01 10*3/L [facility] NRBC/100 WBC 0.0 0.0 - 10.0 /100 WBCs [facility] SERVICES IPF % [facility] SERVICES Specimen Blood - ARM, LEFT Performing Organization Address City/State/Zipcode Ph one Number [facility] SERVICES CLIA: [id number], [address] [place] [phone] [facility] * Basic Metabolic Panel (NA, K, CL, CO2, GLUCOSE, BUN, CREATININE, CA) (06/19/2019 8:25 PM CDT) Only the most recent of 2 results within the time period is included. NA 141 135 - 145 mmol/L [facility] SERVICES K 4.3 3.5 - 5.0 mmol/L [facility] SERVICES CL 105 98 - 108 mmol/L [facility] CO2 TOTAL 26 23 - 31 mmol/L [facility] SERVICES AGAP 10 2 - 16 [facility] BUN 9 7 - 23 mg/dL [facility] GLUCOSE 86 70 - 110 mg/dL [facility] SERVICES CREATININE 0.80 0.60 - 1.25 mg/dL [facility] ORY SERVICES CALCIUM 9.3 8.6 - 10.6 mg/dL [facility] SERVICES eGFR 99.6 mL/min/1.73m2 [facility] Calculation SERVICES (Non-) eGFR 120.8 mL/min/1.73m2 [facility] Calculation SERVICES () Specimen Blood - ARM, LEFT Narrative Performed At Association of Glomerular Filtration Rate (GFR) and S taging of Kidney Disease* [facility] + + +------ + [...] Performing Organization Address City/State/Zipcode Ph one Number [facility] SERVICES CLIA: [id number], [address] [place] [id number] [facility] * HOSPITAL ADMISSION (06/19/2019 12:01 AM CDT) Only the most recent of 2 results within the time period is included. Specimen Performing Organization Address City/State/Zipcode Ph one Number HIM * EMERGENCY DEPARTMENT DOCUMENTS (06/19/2019 12:01 AM CDT) Specimen Performing Organization Address City/State/Zipcode Ph one Number [facility] * AUTHORIZATION FOR RELEASE OF PHI (06/16/2019 12:01 AM CDT) Only the most recent of 2 results within the time period is included. Specimen Performing Organization Address City/State/Zipcode Ph one Number [facility] * XR LUMBAR SPINE 2 VW (05/29/2019 2:58 PM FOLDER AND NOTCHER) Specimen Impressions Performed At FINDINGS/IMPRESSION:: PACS/VR/DOSE Frontal [...] Results Inft User - 05/29/2019 3:15 PM FOLDER AND NOTCHER EXAM: XR LUMBAR SPINE 2 VW HISTORY: [...] PACS/VR/DOSE * PATIENT QUESTIONNAIRE (05/29/2019 12:01 AM FOLDER AND NOTCHER) Specimen Performing Organization Address City/[facility] Ph one Number HIM * DRUG SCREEN PANEL 2 URINE (04/19/2019 9:20 PM FOLDER AND NOTCHER) AMPHET Negative Negative [facility] SERVICES KRYSTIN U Negative Negative [facility] BENZO U Presumptive Positive (A) Negative [facility] Cocaine Negative Negative [facility] Metabolite SERVICES METHADONE Negative Negative [facility] OPIATES Presumptive Positive (A) Negative [facility] PCP Negative Negative [facility] SERVICES THC Presumptive Positive (A) Negative [facility] SERVICES Specimen Urine - URINE, CLEAN CATCH Narrative Performed At Urine Drug Cutoff Ranges [facility] Cocaine: 150 ng/mL SERVICES Benzodiazepines: 200 [...] Ph one Number [facility] CLIA: [id number], [address] [place] [address] [facility] * CBC WITH DIFFERENTIAL (04/19/2019 9:00 PM FOLDER AND NOTCHER) WBC 7.15 4.20 - 10.70 [facility] [...] Specimen Blood - VENOUS Performing Organization Address [facility] one Number [facility] SERVICES CLIA: [id number], [address] [place] [address] [facility] * Hepatic Function Panel (ALB, T.PRO, BILI T, BU/BC, ALT, AST, ALK PHOS) (04/19/2019 9:00 PM FOLDER AND NOTCHER) [facility] TOTAL BILI 0.3 0.1 - 1.1 mg/dL [facility] BILI UNCON 0.2 0.1 - 1.1 mg/dL [facility] BILI CONJ 0.0 0.0 - 0.3 mg/dL [facility] T PROTEIN 6.7 6.3 - 8.2 g/dL [facility] ALBUMIN 3.9 3.5 - 5.0 g/dL [facility] ALK PHOS 64 34 - 122 U/L [facility] ALTv 19 5 - 50 U/L [facility] AST(SGOT) 35 13 - 40 U/L [facility] SERVICES Specimen Blood - VENOUS Performing Organization Address [facility] one Number [facility] CLIA: [id number], [address] [place] [address] [facility] * Troponin I (04/19/2019 9:00 PM FOLDER AND NOTCHER) Pathologist [facility] TROPONIN I 0.004 <=0.034 ng/mL [facility] SERVICES Specimen Blood - VENOUS Narrative Performed At Equal or Less than 0.034 ng/ml---Normal [facility] Note: Cardiac troponin [...] Performing Organization Address City/State/Zipcode Ph one Number [facility] CLIA: [id number], [address] [place] [address] [facility] * EMERGENCY SERVICES AGREEMENTS AND AUTHORIZATIONS (04/19/2019 12:01 AM FOLDER AND NOTCHER) Specimen Performing Organization Address City/State/Zipcode Ph one Number HIM from Last 3 Months Insurance Type Payer Benefit Subscriber ID Effective Phone Address Plan / Dates Group Medicaid [employer] [employer] xxxxxxxxx 2015-P P O [facility] [address] [place] [address] [employer] Advance Directives Relationship Healthcare Agent Relationship Communicat ion Name Emergency Contact Primary healthcare agent [phone] (M obile) Luanne Carson Child First alternate healthcare agent Rico Christie
--- OUTSIDE RECORDS SUMMARY | 2019-11-04 15:55 | XMS REPORT | Summary of Care ---
Author Author [facility] - Health Organization [facility] - Health Address Unknown Phone Unavailable Care Team Providers Care Forest Products Teacher Name Role Phone Gabriella Coyle MD 12 Unavailable Pcp, Patient Does Not Have A PCP Encounter Details Care Team Description Date Type Department Doctor Unassigned, [address] [place] [address] 06/09/2019 Patient Secure [facility] [address] [place] [phone] Allergies Comments Active Allergy Reactions Severity Noted Date Penicillins Rash 11/09/2015 documented as of this encounter (statuses as of 07/12/2019) Medications No known medicationsdocumented as of this encounter (statuses as of 07/12/2019) Active Problems Problem Noted Date Trauma 06/19/2019 Concussion with loss of consciousness 06/19/[address] 06/19/2019 Apnea for greater than 15 seconds 06/19/2019 Infection 09/28/2017 Chronic midline low back pain without sciatica 09/27 Overview: Added automatically from request for buzz nguyen [id number] Wound dehiscence 08/23/2017 Hardware complicating wound infection 08/18/2017 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 09/21/2016 Overview: Added automatically from request for buzz nguyen [id number] Chronic diastolic congestive heart failure 7 Narcotic abuse 03/14/2016 Overview: No further narcotic prescriptions from [facility] Family Medicine. Pt informed 03/13/16.- Angelica [...] as of this encounter (statuses as of 07/12/2019) Resolved Problems Problem Noted Date Resolved Date [...] as of this encounter (statuses as of 07/12/2019) Immunizations Name Administration Dates Next Due DTAP [...] Description Date Type Specialty Freya Tomas MD [address] [place] [phone] 07/28/2019 Telemedicine Psychiatry Visit Freya Tomas MD [address] [place] [phone] 08/27/2019 Telemedicine Psychiatry Visit Health Maintenance Due Date Last Done Comments [...] Implanted Type Area Manufactur er 04/26/20172017-40 / [id number] / [id number] Dbm Putty Maxxeus 10cc Cts #2017-40 BONE Left: Spin e [facility] - [id number] Tissue Implanted: Qty: 1 on 11/10/2015 by Services Harrison Wise MD at [facility] 07/07/2020 1234-12 / [id number] / [id number] Cancellous Crushed, Community BONE Left: Spine [facility] Tissue Services (1 10mm) Freeze Tissue Dried 60.0 Cc #1234-12 - S0000 Services Implanted: Qty: 1 on 11/10/2015 by Harrison Wise MD at [facility] 10/16/2021 1235-12 / [id number] / [id number] Cancellous Crushed, Community BONE N/A: [facility] Tissue Services (1 10mm) Freeze Tissue Dried 90.0 Cc #1235-12 - Services [id number] Implanted: Qty: 1 on 01/19/2017 by Harrison Wise MD at [facility] 09/22/20182017-40 / [id number] / [id number] Dbm Putty Maxxeus 10cc Cts #2017- BONE N/A: [facility] - [id number] Tissue Implanted: Qty: 1 on 01/19/2017 by Services Harrison Wise MD at [facility] 07/23/2018 [id number] / / Duraseal, Covidien Improved Dural Duraseal N/A: Spine Tyco/Covid Sealant System 5ml #[id number] - S00 ien Implanted: Qty: 1 on 08/08/2017 by Harrison Wise MD at [facility] 01/19/2027 [id number] / 0 / [id number] Yareli 4.75 Ccm Ns Curved 70mm Solara YARELI N/A: Back Medtronic Medtronic #[id number] - S0 Implanted: Qty: 2 on 01/19/2017 by Harrison Wise MD at [facility] 11/09/2025 [id number] / 0000 / [id number] Screw Solera 6.5x30mm Medtronic SCREW Left: Spine Medtronic #[id number] - S0000 Implanted: Qty: 2 on 11/10/2015 by Harrison Wise MD at [facility] 11/09/2025 [id number] / 0000 / [id number] Screw, Medtronic Solara 6.5x45 SCREW Left: Spine Medtronic #[id number] - [id number] Implanted: Qty: 2 on 11/10/2015 by Harrison Wise MD at [facility] 01/19/2027 [id number] / 0 / [id number] Screw Solera 8.5x30mm Mas Medtronic SCREW N/A: Back Medtronic #[id number] Implanted: Qty: 2 on 01/19/2017 by Harrison Wise MD at [facility] 01/19/2027 [id number] / 0 / [id number] Screw, Medtronic Solara 6.5x45 SCREW N/A: Back Medtronic #[id number] - S0 Implanted: Qty: 2 on 01/19/2017 by Harrison Wise MD at [facility] 08/09/2027 [id number] / 00 / 00 Screw, Medtronic # Set Break Off Ti SCREW N/A: Spine Medtronic #[id number] - S00 Implanted: Qty: 3 on 08/08/2017 by Harrison Wise MD at [facility] Description:No charge for any implant per Hortensia Bell 11/09/2025 [id number] / 000 / [id number] Screw Solera 4.75 Ti Ns Break Off Left: Spine Med tronic Medtronic #[id number] - S000 Implanted: Qty: 4 on 11/10/2015 by Harrison Wise MD at [facility] 11/09/2025 [id number] / 0000 / [id number] Yareli 4.75 Ccm Ns Curved 45mm Solera Left: Spine Me dtronic Medtronic #[id number] - S0000 Implanted: Qty: 2 on 11/10/2015 by Harrison Wise MD at [facility] 01/19/2027 [id number] / 0 / [id number] Screw Solera 4.75 Ti Ns Break Off N/A: Back Med tronic Medtronic #[id number] - S0 Implanted: Qty: 6 on 01/19/2017 by Harrison Wise MD at [facility] 01/19/2027 [id number] / 0 / [id number] Screw Solera 7.5x45mm Medtronic N/A: Back Medtr on #[id number] - S0 Implanted: Qty: 2 on 01/19/2017 by Harrison Wise MD at [facility] documented as of this encounter Results Not on filedocumented in this encounter Insurance Type Payer Benefit Subscriber ID Effective Phone Address Plan / Dates Group Medicaid [facility] xxxxxxxxx 2015-P P O MARGI OF [facility] [address] [place] [address] documented as of this encounter Advance Directives Relationship Healthcare Agent Relationship Communicat ion Name Emergency Contact Primary healthcare agent [phone] (M obile) Luanne Carson Child First alternate healthcare agent Rico Christie
--- OUTSIDE RECORDS SUMMARY | 2019-11-04 15:55 | XMS REPORT | Summary of Care ---
Author Author [facility] - Health Organization [facility] - Health Address Unknown Phone Unavailable Care Team Providers Care News Camera Operator Name Role Phone Gabriella Coyle MD 12 Unavailable Pcp, Patient Does Not Have A PCP [phone] Reason for Visit * Reason Comments DISCHARGE Encounter Details Care Team Description Date Type Department Prerna Thompson, CHAYA DISCHARGE 07/16/2019 Clinic [facility] Health Physica l and Assessment Occupational Therapy-[address] [phone] Allergies Comments Active Allergy Reactions Severity Noted Date Penicillins Rash 11/09/2015 documented as of this encounter (statuses as of 07/16/2019) Medications End Date Status Medication Sig Dispensed Refills Start Date Active venlafaxine XR 150 mg 24 Take 1 30 capsule 1 0 hr capsuleIndications: capsule by 0 KELSIE (generalized anxiety mouth daily disorder) with breakfast. documented as of this encounter (statuses as of 07/16/2019) Active Problems Problem Noted Date Trauma 06/19/2019 Concussion with loss of consciousness 06/19/[address] 06/19/2019 Apnea for greater than 15 seconds 06/19/2019 Infection 09/28/2017 Chronic midline low back pain without sciatica 09/27 Overview: Added automatically from request for buzz nguyen [id number] Wound dehiscence 08/23/2017 Hardware complicating wound infection 08/18/2017 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 09/21/2016 Overview: Added automatically from request for buzz nguyen [id number] Chronic diastolic congestive heart failure 7 Narcotic abuse 03/14/2016 Overview: No further narcotic prescriptions from [facility] Family Medicine. Pt informed 03/13/16.- [...] as of this encounter (statuses as of 07/16/2019) Resolved Problems Problem Noted Date Resolved Date [...] as of this encounter (statuses as of 07/16/2019) Immunizations Name Administration Dates Next Due DTAP [...] filedocumented in this encounter Progress Notes * Prerna Thompson, PT - 07/16/2019 11:01 AM CDT Outpatient Discharge Note Physical Therapy Diagnosis: Z98.1 S/P lumbar fusion (primary encounter diagnosis) M54.41, G89.29, M54.42 Chronic low back pain with bilateral sciatica, unspecifie d back pain laterality R29.898 Weakness of both lower extremities R26.2 Difficulty walking M54.5, G89.29 Chronic midline low back pain without sciatica Date of initial visit: 01/30/18 Date of last visit: 02/27/18 Total number of visits: 4 Functional status at discharge: Patient voluntarily stopped treatment; please se e last progress note dated: 02/27/18. Home program: Verbal and written instructions provided (with department phone nu mber) to the patient. Goals achieved: 0 PhysicalGoals not achieved (why): patient chose not to participate in rehab and failed to complete POC. Goals met at discharge: 0% Discharged from Physical Therapy to home with home program. Ana Rosa Shah, PT [address] [place] [address] Lic# [id number] documented in this encounter Plan of Treatment Care Team Description Date Type Specialty Freya Tomas MD [address] [place] [address]. [place] [phone] 07/28/2019 Telemedicine Psychiatry Visit Freya Tomas MD [address] [place] [address]. [place] [phone] 08/27/2019 Telemedicine Psychiatry Visit Health Maintenance Due [...] Implanted Type Area Manufactur er 04/26/20172017- / [id number] / [id number] Dbm Putty Maxxeus 10cc Cts #2018 BONE Left: Spin e Community - [id number] Tissue Implanted: Qty: 1 on 11/10/2015 by Services Harrison Wise MD at [facility] 07/07/2020 1234-12 / [id number] / [id number] Cancellous Crushed, Community BONE Left: Spine [facility] Tissue Services (1 10mm) Freeze Tissue Dried 60.0 Cc #1234-12 - S0000 Services Implanted: Qty: 1 on 11/10/2015 by Harrison Wise MD at [facility] 10/16/2021 1235-12 / [id number] / [id number] Cancellous Crushed, Community BONE N/A: Back [facility] Tissue Services (1 10mm) Freeze Tissue Dried 90.0 Cc #1235-12 - Services [id number] Implanted: Qty: 1 on 01/19/2017 by Harrison Wise MD at [facility] 09/22/2018 2018- / [id number] / [id number] Dbm Putty Maxxeus 10cc Cts # BONE N/A: [facility] [id number] Tissue Implanted: Qty: 1 on 01/19/2017 by Services Harrison Wise MD at [facility] 07/23/2018 [id number] Duraseal, Covidien Improved Dural Duraseal N/A: Spine Tyco/Covid Sealant System 5ml #967406 - S00 ien Implanted: Qty: 1 on 08/08/2017 by Harrison Wise MD at [facility] 01/19/2027 [id number] / 0 / [id number] Yareli 4.75 Ccm Ns Curved 70mm Solara YARELI N/A: Back Medtronic Medtronic #[id number] - S0 Implanted: Qty: 2 on 01/19/2017 by Harrison Wise MD at [facility] 11/09/2025 [id number] / 0000 / [id number] Screw Solera 6.5x30mm Medtronic SCREW Left: Spine Medtronic #[id number] - S0000 Implanted: Qty: 2 on 11/10/2015 by Harrison Wise MD at [facility] 11/09/2025 [id number] / 0000 / [id number] Screw, Medtronic Solara 6.5x45 SCREW Left: Spine Medtronic #[id number] - S0000 Implanted: Qty: 2 on 11/10/2015 by Harrison Wise MD at [facility] 01/19/2027 [id number] / 0 / [id number] Screw Solera 8.5x30mm Mas Medtronic SCREW N/A: Back Medtronic #[id number] Implanted: Qty: 2 on 01/19/2017 by Harrison Wise MD at [facility] 01/19/2027 [id number] / 0 / [id number] Screw, Medtronic Solara 6.5x45 SCREW N/A: Back Medtronic #[id number] - S0 Implanted: Qty: 2 on 01/19/2017 by Harrison Wise MD at [facility] 08/09/2027 [id number] / 00 / 00 Screw, Medtronic # Set Break Off Ti SCREW N/A: Spine Medtronic #[id number] - S00 Implanted: Qty: 3 on 08/08/2017 by Harrison Wise MD at [facility] Description:No charge for any implant per Cordell Belltegee Rep 11/09/2025 [id number] / 000 / [id number] Screw Solera 4.75 Ti Ns Break Off Left: Spine Med tronic Medtronic #[id number] - S000 Implanted: Qty: 4 on 11/10/2015 by Harrison Wise MD at [facility] 11/09/2025 [id number] / 0000 / [id number] Yareli 4.75 Ccm Ns Curved 45mm Solera Left: Spine Me dtronic Medtronic #[id number] - S0000 Implanted: Qty: 2 on 11/10/2015 by Harrison Wise MD at [facility] 01/19/2027 [id number] / 0 / [id number] Screw Solera 4.75 Ti Ns Break Off N/A: Back Med tronic Medtronic #[id number] - S0 Implanted: Qty: 6 on 01/19/2017 by Harrison Wise MD at [facility] 01/19/2027 [id number] / 0 / [id number] Screw Solera 7.5x45mm Medtronic N/A: Back Medtr onic #[id number] - S0 Implanted: Qty: 2 on 01/19/2017 by Harrison Wise MD at [facility] documented as of this encounter Results Not on filedocumented in this encounter Visit Diagnoses Diagnosis S/P lumbar fusion - Primary Arthrodesis status Chronic low back pain with bilateral sc iatica, unspecified back pain laterality Weakness of both lower extremities Difficulty walking Difficulty in walking documented in this encounter Insurance Type Payer Benefit Subscriber ID Effective Phone Address Plan / Dates Group [facility] xxxxxxxxx 2015-P P O MARGI X OF [facility] [address] [place] [address] documented as of this encounter Advance Directives Relationship Healthcare Agent Relationship Communicat ion Name Emergency Contact Primary healthcare agent [phone] (M obile) Luanne Carson [facility] healthcare agent Rico Christie
--- OUTSIDE RECORDS SUMMARY | 2019-11-04 15:55 | XMS REPORT | Clinical Summary ---
Author Author [facility] - Health Organization [facility] - Health Address Unknown Phone Unavailable Care Team Providers Care Marketing Regional Consultant Name Role Phone Gabriella Coyle MD 12 Unavailable Pcp, Patient Does Not Have A PCP [phone] Allergies Comments Active Allergy Reactions Severity Noted [...] Added automatically from request for buzz nguyen [id number] Wound dehiscence 08/23/2017 Hardware complicating wound infection 08/18/2017 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 09/21/2016 Overview: Added automatically from request for buzz nguyen [id number] Chronic diastolic congestive heart failure 7 Narcotic [...] Benzodiazepine abuse 04/19/2019 Emergency Emergency Medicine Team, [facility] HEALTH MAINTENANCE 04/18/2019 Telephone [facility] Preventive Medicine Golden Rivera RN HEALTH MAINTENANCE (High ED Utilization) 04/18/2019 Telephone [facility] Preventive Medicine Jacek Meeks MD LLQ abdominal [...] Implanted Type Area Manufactur er 04/26/20172017-40 / [id number] / [id number] Dbm Putty Maxxeus 10cc Cts # BONE Left: Spin e [facility] - [id number] Tissue Implanted: Qty: 1 on 11/10/2015 by Services Harrison Wise MD at [facility] 07/07/2020 1234-12 / [id number] / [id number] Cancellous Crushed, Community BONE Left: Spine [facility] Tissue Services (1 10mm) Freeze Tissue Dried 60.0 Cc #1234-12 - [id number] Services Implanted: Qty: 1 on 11/10/2015 by Harrison Wise MD at [facility] 10/16/2021 1235-12 / [id number] / [id number] Cancellous Crushed, Community BONE N/A: Back [facility] Tissue Services (1 10mm) Freeze Tissue Dried 90.0 Cc #1235-12 - Services [id number] Implanted: Qty: 1 on 01/19/2017 by Harrison Wise MD at [facility] 09/22/20182017- / [id number] / [id number] Dbm Putty Maxxeus 10cc Cts # BONE N/A: Back [facility] - [id number] Tissue Implanted: Qty: 1 on 01/19/2017 by Services Harrison Wise MD at [facility] 07/23/2018 [id number] Duraseal, Covidien Improved Dural Duraseal N/A: Spine Tyco/Covid Sealant System 5ml #[id number] - [id number] ien Implanted: Qty: 1 on 08/08/2017 by Harrison Wise MD at [facility] 01/19/2027 [id number] / 0 / [id number] Yareli 4.75 Ccm Ns Curved 70mm Solara YARELI N/A: Back Medtronic Medtronic #[id number] - [id number] Implanted: Qty: 2 on 01/19/2017 by Harrison Wise MD at [facility] 11/09/2025 [id number] / 0000 / [id number] Screw Solera 6.5x30mm Medtronic SCREW Left: Spine Medtronic #[id number] - [id number] Implanted: Qty: 2 on 11/10/2015 by Harrison Wise MD at [facility] 11/09/2025 [id number] / 0000 / [id number] Screw, Medtronic Solara 6.5x45 SCREW Left: Spine Medtronic #[id number] - [id number] Implanted: Qty: 2 on 11/10/2015 by Harrison Wise MD at [facility] 01/19/2027 [id number] / 0 / [id number] Screw Solera 8.5x30mm Mas Medtronic SCREW N/A: Back Medtronic #[id number] Implanted: Qty: 2 on 01/19/2017 by Harrison Wise MD at [facility] 01/19/2027 [id number] / 0 / [id number] Screw, Medtronic Solara 6.5x45 SCREW N/A: Back Medtronic #[id number] - S0 Implanted: Qty: 2 on 01/19/2017 by Harrison Wise MD at [facility] 08/09/2027 [id number] / 00 / [id number] Screw, Medtronic # Set Break Off Ti SCREW N/A: Spine Medtronic #[id number] - [id number] Implanted: Qty: 3 on 08/08/2017 by Harrison Wise MD at [facility] Description:No charge for any implant per Hortensia Bell 11/09/2025 [id number] / 000 / [id number] Screw Solera 4.75 Ti Ns Break Off Left: Spine Med tronic Medtronic #[id number] - [id number] Implanted: Qty: 4 on 11/10/2015 by Harrison Wise MD at [facility] 11/09/2025 [id number] / 0000 / [id number] Yareli 4.75 Ccm Ns Curved 45mm Solera Left: Spine Me dtronic Medtronic #[id number] - [id number] Implanted: Qty: 2 on 11/10/2015 by Harrison Wise MD at [facility] 01/19/2027 [id number] / 0 / [id number] Screw Solera 4.75 Ti Ns Break Off N/A: Back Med tronic Medtronic #[id number] - S0 Implanted: Qty: 6 on 01/19/2017 by Harrison Wise MD at [facility] 01/19/2027 [id number] / 0 / [id number] Screw Solera 7.5x45mm Medtronic N/A: Back Medtr onic #[id number] - S0 Implanted: Qty: 2 on 01/19/2017 by Harrison Wise MD at [facility] Procedures Comments Procedure Name Priority Date/Time Associated [...] Chronic l ow back pain, 2:58 PM [facility] unspecified back pain laterality, unspecified whether sciatica present PATIENT QUESTIONNAIRE Routine 05/29/2019 12:01 AM [facility] GALV/CLC ONLY - URINE STAT 04/19/2019 Difficul ty walking DRUG (IMMUNOASSAY) - 9:20 PM [facility] COMPREHENSIVE DRUG SCREEN CBC WITH DIFFERENTIAL STAT 04/19/2019 Difficul ty walking 9:00 PM [facility] TROPONIN I STAT 04/19/2019 Difficulty walk ing 9:00 PM [facility] HEPATIC FUNCTION PANEL STAT 04/19/2019 Difficu lty walking (28362) (ALB,T.PRO,BILI 9:00 PM [facility] T,BU/BC,ALT,AST,ALK PHOS) BASIC METABOLIC PANEL STAT 04/19/2019 Difficul ty walking (NA, K, CL, CO2, GLUCOSE, 9:00 PM [facility] BUN, CREATININE, CA) CBC WITH DIFFERENTIAL Routine 04/19/2019 Difficul ty walking 9:[address] HEAD WO CONTRAST STAT 04/19/2019 Difficulty walking 8:53 PM [facility] EMERGENCY SERVICES Routine 04/19/2019 AGREEMENTS AND 12:01 AM [facility] AUTHORIZATIONS CT ABDOMEN PELVIS W STAT 04/03/2019 LLQ abdomi nal pain CONTRAST 12:01 AM [facility] COMP. METABOLIC PANEL STAT 04/02/2019 LLQ abdo gisselle pain (98696) 9:02 PM [facility] CBC WITH DIFFERENTIAL STAT 04/02/2019 LLQ abdo gisselle pain 9:02 PM [facility] EMERGENCY SERVICES Routine 04/02/2019 AGREEMENTS AND 12:01 AM [facility] AUTHORIZATIONS XR ABDOMEN ACUTE SERIES STAT 04/01/2019 Abdomi nal pain, 8:36 PM [facility] unspecified abdominal location EMERGENCY SERVICES Routine 04/01/2019 AGREEMENTS AND 12:01 AM [facility] AUTHORIZATIONS from Last 3 Months Results * MRSA / MSSA Screen by PCR, Nares (06/19/2019 10:01 PM CDT) MRSA Screen by Negative Negative [facility] PCR, Nares SERVICES MSSA Screen by Negative Negative [facility] PCR, Nares SERVICES MRSA/MSSA No No [facility] Positive? SERVICES Specimen Swab - NARES, BOTH SIDES Performing Organization Address [facility] one Number [facility] CLIA: [id number], [address] [place] [address] [facility] * MYOGLOBIN SERUM (06/19/2019 8:54 PM CDT) MYOGLOB S 75.4 <=121.0 ng/mL [facility] SERVICES Specimen Blood - ARM, LEFT Narrative Performed At Biotin has been reported to cause a neg ative bias, interpret results relative to [facility] patient's use of biotin. SERVICES Performing Organization Address [facility] Ph one Number [facility] CLIA: [id number], [address] [place] [address] [facility] * CREATINE KINASE (06/19/2019 8:54 PM CDT) CK 68 33 - 194 U/L [facility] Specimen Blood - ARM, LEFT Performing Organization Address City/State/Zipcode Ph one Number [facility] CLIA: [id number], [address] [place] [address] [facility] * CT THORAX W CONTRAST (06/19/2019 8:50 [...] Preliminary Report Dictated by Resident : Melissa Barnettwuagwu Report change I, Olivier Green reviewed this [...] spine. Preliminary Report Dictated by Resident: Melissa Barnettwuasusana Report change I, Olivier Green reviewed this [...] Preliminary Report Dictated by Resident: Melissa Lau Ikwuagwalanna Report change IOlivier reviewed this study and agree with the above report with the following minor modifications, Mild compression deformities of T10, T9, and T7 vertebral bodies appeared to have been present on 10/17/18 CT, clinically correlate. IOlivier MD., have reviewed this study and agree with the above report. Performing Organization Address [facility] Ph one Number PACS/VR/DOSE * CT ABDOMEN [...] the above report. Performing Organization Address [facility] Ph one Number PACS/VR/DOSE * XR CHEST 1 VW (06/19/2019 8:32 PM CDT) Specimen Impressions Performed At No acute thoracic abnormality. PACS/VR/DOSE Preliminary Report Dictated by Resident : Carlos Marshall MD., have reviewed [facility] study and agree with the above [...] left third and fourth ribs. Procedure Note [facility], Radiant Results [...] Address City/State/Zipcode Ph one Number PACS/VR/DOSE * Type and Screen - The Type and Screen expires at midnight on the 3rd day after it was drawn. A current Type and Screen is required when RBCs are requested. For all other blood products, a Type and Screen performed during the current hospitalizati... (06/19/2019 8:26 PM CDT) Pathologist Solomon ABO & RH A POSITIVE LAB Comment: Performed at [facility] Laboratory Services - [facility] Blood Bank [address] [place] [address] Toll Free: [phone] CLIA No. [id number] IAT Negative LAB Comment: Performed at [facility] Laboratory Services - [facility] Blood Bank [address] [place] [address] Toll Free: [phone] CLIA No. [id number] Specimen Blood - VENOUS Performing Organization Address City/State/Zipcode Ph one Number BLD LAB * aPTT (06/19/2019 8:25 PM CDT) APTT Patient 26 26 - 36 Seconds [facility] Y SERVICES Specimen Blood - ARM, LEFT Performing Organization Address City/State/Zipcode Ph one Number [facility] CLIA: [id number], [address] [place] [address] [facility] * Prothrombin Time (PT) / INR (06/19/2019 8:25 PM CDT) PROTIME PATIENT 10.9 10.1 - 12.6 Seconds [facility] LAB[facility]AT[facility] SERVICES INR 1.0Comment: Normal INR <1.1; [facility] ORATORY Warfarin Therapeutic range 2.0 SERVICES to 3.0 or 2.5 to 3.5, depending upon the indications. Specimen Blood - ARM, LEFT Performing Organization Address City/[facility] one Number [facility] CLIA: [id number], [address] [place] [address] [facility] * Profile / Hemogram (06/19/2019 8:25 PM CDT) WBC 7.95 4.20 - 10.70 [facility] 10*3/L SERVICES RBC 4.91 4.26 - 5.52 10*6/L [facility] SERVICES HGB 14.3 12.2 - 16.4 g/dL [facility] RY SERVICES HCT 43.4 38.4 - 49.3 % [facility] MCH 29.1 26.1 - 32.7 pg [facility] MCV 88.4 81.7 - 95.6 fL [facility] MCHC 32.9 31.2 - 35.0 g/dL [facility] RY SERVICES PLT 210 150 - 328 10*3/L [facility] T[facility] SERVICES MPV 9.0 (L) 9.8 - 13.0 fL [facility] RDW-CV 14.2 12.1 - 15.4 % [facility] RDW-SD 45.7 38.5 - 51.6 fL [facility] NRBC x10^3 <0.01 10*3/L [facility] NRBC/100 WBC 0.0 0.0 - 10.0 /100 WBCs [facility] IPF % [facility] Specimen Blood - ARM, LEFT Performing Organization Address City/State/Zipcode Ph one Number [facility] CLIA: [id number], [address] [place] [address] [facility] * Basic Metabolic Panel (NA, K, CL, CO2, GLUCOSE, BUN, CREATININE, CA) (06/19/2019 8:25 PM CDT) Only the most recent of 2 results within the time period is included. NA 141 135 - 145 mmol/L [facility] RY SERVICES K 4.3 3.5 - 5.0 mmol/L [facility] RY SERVICES CL 105 98 - 108 mmol/L [facility] CO2 TOTAL 26 23 - 31 mmol/L [facility] AGAP 10 2 - 16 [facility] BUN 9 7 - 23 mg/dL [facility] GLUCOSE 86 70 - 110 mg/dL [facility] CREATININE 0.80 0.60 - 1.25 mg/dL [facility] ORY SERVICES CALCIUM 9.3 8.6 - 10.6 mg/dL [facility] RY SERVICES eGFR 99.6 mL/min/1.73m2 [facility] Calculation SERVICES (Non-) eGFR 120.8 mL/min/1.73m2 [facility] Calculation SERVICES () Specimen Blood - ARM, LEFT Narrative Performed At Association of Glomerular Filtration Rate (GFR) and S taging of Kidney Disease* [facility] + + +------ + SERVICES [...] Performing Organization Address City/State/Zipcode Ph one Number [facility] CLIA: [id number], [address] [place] [address] [facility] * HOSPITAL ADMISSION (06/19/2019 12:01 AM CDT) Specimen Performing Organization Address City/State/Zipcode Ph one Number [facility] * EMERGENCY DEPARTMENT DOCUMENTS (06/19/2019 12:01 AM CDT) Specimen Performing Organization Address City/State/Zipcode Ph one Number [facility] * AUTHORIZATION FOR RELEASE OF PHI (06/16/2019 12:01 AM CDT) Specimen Performing Organization Address City/State/Zipcode Ph one Number [facility] * XR LUMBAR SPINE 2 VW (05/29/2019 2:58 PM [facility]) Specimen Impressions Performed At FINDINGS/IMPRESSION:: PACS/VR/DOSE Frontal [...] washout on 09/27/17 COMPARISON: None. Procedure Note [facility], Radiant Results Inft User - 05/29/2019 3:15 PM [facility] EXAM: XR LUMBAR SPINE 2 VW HISTORY: [...] soft tissues are unremarkable. Performing Organization Address [facility] one Number PACS/VR/DOSE * PATIENT QUESTIONNAIRE (05/29/2019 12:01 AM [facility]) Specimen Performing Organization Address [facility] one Number [facility] * DRUG SCREEN PANEL 2 URINE (04/19/2019 9:20 PM [facility]) AMPHET Negative Negative [facility] KRYSTIN U Negative Negative [facility] BENZO U Presumptive Positive (A) Negative [facility] Cocaine Negative Negative [facility] Metabolite SERVICES METHADONE Negative Negative [facility] OPIATES Presumptive Positive (A) Negative [facility] PCP Negative Negative [facility] THC Presumptive Positive (A) Negative [facility] Specimen Urine - URINE, CLEAN CATCH Narrative Performed At Urine Drug Cutoff Ranges [facility] Cocaine: 150 ng/mL SERVICES Benzodiazepines: 200 ng/mL Methadone: 300 ng/mL Amphetamine: 1,000 ng/mL Opiates: 300 ng/mL Cannabinoids: 50 ng/mL Phencyclidine: 25 ng/mL Barbiturates: 200 ng/mL The results are to be used only for med ical (i.e., treatment) purposes. Unconfirmed screening results must not be used for non-medical purposes (e.g., employment testing, legal testing). Performing Organization Address [facility] one Number [facility] CLIA: [id number], [address] [place] [address] [facility] * CBC WITH DIFFERENTIAL (04/19/2019 9:00 PM [facility]ENTS) Only the most recent of 2 results within the time period is included. WBC 7.15 4.20 - 10.70 [facility] 10*3/L SERVICES RBC 4.05 (L) 4.26 - 5.52 10*6/L [facility] HGB 11.8 (L) 12.2 - 16.4 g/dL [facility] RY SERVICES HCT 36.0 (L) 38.4 - 49.3 % [facility] MCV 88.9 81.7 - 95.6 fL [facility] MCH 29.1 26.1 - 32.7 pg [facility] MCHC 32.8 31.2 - 35.0 [...] Ph one Number [facility] CLIA: [id number], [address] [place], [place] [address] [facility] * Hepatic Function Panel (ALB, T.PRO, BILI T, BU/BC, ALT, AST, ALK PHOS) (04/19/2019 9:00 PM [facility]) TOTAL BILI 0.3 0.1 - 1.1 mg/dL [facility] BILI UNCON 0.2 0.1 - 1.1 mg/dL [facility] BILI CONJ 0.0 0.0 - 0.3 mg/dL [facility] T PROTEIN 6.7 6.3 - 8.2 g/dL [facility] ALBUMIN 3.9 3.5 - 5.0 g/dL [facility] ALK PHOS 64 34 - 122 U/L [facility] ALTv 19 5 - 50 U/L [facility] AST(SGOT) 35 13 - 40 U/L [facility] Specimen Blood - VENOUS Performing Organization Address [facility] Ph one Number [facility] CLIA: [id number], [address] [place] [address] [facility] * Troponin I (04/19/2019 9:00 PM [facility]) TROPONIN I 0.004 <=0.034 ng/mL [facility] Specimen Blood - VENOUS Narrative Performed At Equal or Less than 0.034 ng/ml---Normal [facility] Note: Cardiac troponin begins [...] of biotin. Performing Organization Address [facility] one Number [facility] CLIA: [id number], [address] [place] [address] [facility] * EMERGENCY SERVICES AGREEMENTS AND AUTHORIZATIONS (04/19/2019 12:01 AM [facility]UDENTS) Only the most recent of 3 results within the time period is included. Specimen Performing Organization Address [facility] one Number [facility] * COMP. METABOLIC PANEL (03912) (04/02/2019 9:02 PM [facility]) NA 143 135 - 145 mmol/L [facility] K 3.9 3.5 - 5.0 mmol/L [facility] CL 106 98 - 108 mmol/L [facility] CO2 TOTAL 24 23 - 31 mmol/L [facility] AGAP 13 2 - 16 [facility] BUN 15 7 - 23 mg/dL [facility] GLUCOSE 93 70 - 110 mg/dL [facility] CREATININE 0.71 0.60 - 1.25 mg/dL [facility] TOTAL BILI 0.5 0.1 - 1.1 mg/dL [facility] CALCIUM 10.1 8.6 - 10.6 mg/dL [facility] T PROTEIN 7.6 6.3 - 8.2 g/dL [facility] ALBUMIN 4.6 3.5 - 5.0 g/dL [facility] ALK PHOS 74 34 - 122 U/L [facility] ALTv 28 5 - 50 U/L [facility] AST(SGOT) 41 (H) 13 - 40 U/L [facility] eGFR 114.4 mL/min/1.73m2 [facility] Calculation SERVICES (Non-) eGFR 138.6 mL/min/1.73m2 [facility] Calculation SERVICES () Specimen Blood - VENOUS Narrative Performed At Association of Glomerular Filtration Rate (GFR) and S taging of Kidney Disease* [facility] + + +------ + SERVICES [...] Performing Organization Address City/State/Zipcode Ph one Number [facility] CLIA: [id number], [address] [place] [address] [facility] * XR ABDOMEN ACUTE SERIES (04/01/2019 8:36 PM [facility]UDENTS) Specimen Impressions Performed At No acute cardiopulmonary [...] he soft tissues are unremarkable. Procedure Note [facility], Radiant Results Inft User - 04/01/2019 9:45 PM [facility]UDENTS XR ABDOMEN ACUTE SERIES HISTORY: abdominal pain, [...] Phone Address Plan / Dates Group Medicaid [facility] [employer] xxxxxxxxx 2015-P P O MARGI X OF [facility] [address] [place] [address] [address] Systems Advance Directives Relationship Healthcare Agent Relationship Communicat ion Name Emergency Contact Primary healthcare agent [phone] (M obile) Luanne Carson Child First alternate healthcare agent Rico Christie
--- OUTSIDE RECORDS SUMMARY | 2019-11-04 15:55 | XMS REPORT | Clinical Summary ---
Author Author [facility] - Health Organization [facility] - Health Address Unknown Phone Unavailable Care Team Providers Care Registered Nurse Behavioral [facility] Name Role Phone Gabriella Coyle MD 12 Unavailable Pcp, Patient Does Not Have A PCP [phone] Allergies Comments Active Allergy Reactions Severity Noted Date Penicillins Rash 11/09/2015 Medications No known medications Active Problems Problem Noted Date Trauma 06/19/2019 Concussion with loss of consciousness 06/19/[address] 06/19/2019 Apnea for greater than 15 seconds 06/19/2019 Infection 09/28/2017 Chronic midline low back pain without sciatica 09/27 Overview: Added automatically from request for gerber wendy [id number] Wound dehiscence 08/23/2017 Hardware complicating wound infection 08/18/2017 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 09/21/2016 Overview: Added automatically from request for gerber wendy [id number] Chronic diastolic congestive heart failure 7 Narcotic [...] Benzodiazepine abuse 04/19/2019 Emergency Emergency Medicine Team, [facility] Health Maintenance HEALTH MAINTENANCE 04/18/2019 Telephone [...] Implanted Type Area Manufactur er 04/26/20172017-40 / [id number] / [id number] Dbm Putty Maxxeus 10cc Cts # BONE Left: Spin e Community - [id number] Tissue Implanted: Qty: 1 on 11/10/2015 by Services Harrison Wise MD at [facility] 07/07/2020 1234-12 / [id number] / [id number] Cancellous Crushed, Community BONE Left: Spine [facility] (1 10mm) Freeze Tissue Dried 60.0 Cc #1234-12 - [id number] Services Implanted: Qty: 1 on 11/10/2015 by Harrison Wise MD at [facility] 10/16/2021 1235-12 / [id number] / [id number] Cancellous Crushed, [facility] BONE N/A: Back [facility] (1 10mm) Freeze Tissue Dried 90.0 Cc #1235-12 - Services [id number] Implanted: Qty: 1 on 01/19/2017 by Harrison Wise MD at [facility] 09/22/2018 / [id number] / [id number] Dbm Putty Maxxeus 10cc Cts # BONE N/A: Back [facility] - [id number] Tissue Implanted: Qty: 1 on 01/19/2017 by Services Harrison Wise MD at [facility] 07/23/2018185069 Duraseal, Covidien Improved Dural Duraseal N/A: Spine Tyco/Covid Sealant System 5ml #[id number] - S00 ien Implanted: Qty: 1 on 08/08/2017 by Harrison Wise MD at [facility] 01/19/2027 [id number] / 0 / [id number] Yareli 4.75 Ccm Ns Curved 70mm Solara YARELI N/A: Back Medtronic Medtronic #[id number] - [id number] Implanted: Qty: 2 on 01/19/2017 by Harrison Wise MD at [facility] 11/09/2025 [id number] / 0000 / [id number] Screw Solera 6.5x30mm Medtronic SCREW Left: Spine Medtronic #[id number] - [id number] Implanted: Qty: 2 on 11/10/2015 by Harrison Wise MD at [facility] 11/09/2025 [id number] / 0000 / [id number] Screw, Medtronic Solara 6.5x45 SCREW Left: Spine Medtronic #[id number] - [id number] Implanted: Qty: 2 on 11/10/2015 by Harrison Wise MD at [facility] 01/19/2027 [id number] / 0 / [id number] Screw Solera 8.5x30mm Mas Medtronic SCREW N/A: Back Medtronic #[id number] Implanted: Qty: 2 on 01/19/2017 by Harrison Wise MD at [facility] 01/19/2027 [id number] / 0 / [id number] Screw, Medtronic Solara 6.5x45 SCREW N/A: Back Medtronic #[id number] - S0 Implanted: Qty: 2 on 01/19/2017 by Harrison Wise MD at [facility] 08/09/2027 [id number] / 00 / 00 Screw, Medtronic # Set Break Off Ti SCREW N/A: Spine Medtronic #[id number] - [id number] Implanted: Qty: 3 on 08/08/2017 by Harrison Wise MD at [facility] Description:No charge for any implant per Hortensia Bell 11/09/2025 [id number] / 000 / [id number] Screw Solera 4.75 Ti Ns Break Off Left: Spine Med tronic Medtronic #[id number] - [id number] Implanted: Qty: 4 on 11/10/2015 by Harrison Wise MD at [facility] 11/09/2025 [id number] / 0000 / [id number] Yareli 4.75 Ccm Ns Curved 45mm Solera Left: Spine Me dtronic Medtronic #[id number] - [id number] Implanted: Qty: 2 on 11/10/2015 by Harrison Wise MD at [facility] 01/19/2027 [id number] / 0 / [id number] Screw Solera 4.75 Ti Ns Break Off N/A: Back Med tronic Medtronic #[id number] - S0 Implanted: Qty: 6 on 01/19/2017 by Harrison Wise MD at [facility] 01/19/2027 [id number] / 0 / [id number] Screw Solera 7.5x45mm Medtronic N/A: Back Medtr onic #[id number] - S0 Implanted: Qty: 2 on 01/19/2017 by Harrison Wise MD at [facility] Procedures Comments Procedure Name Priority Date/Time [...] Chronic l ow back pain, 2:58 PM HOOK UP DRIVER unspecified back pain laterality, unspecified whether sciatica present PATIENT QUESTIONNAIRE Routine 05/29/2019 12:01 AM HOOK UP DRIVER GALV/CLC ONLY - URINE STAT 04/19/2019 Difficul ty walking DRUG (IMMUNOASSAY) - 9:20 PM HOOK UP DRIVER COMPREHENSIVE DRUG SCREEN CBC WITH DIFFERENTIAL STAT 04/19/2019 Difficul ty walking 9:00 PM HOOK UP DRIVER TROPONIN I STAT 04/19/2019 Difficulty walk ing 9:00 PM HOOK UP DRIVER HEPATIC FUNCTION PANEL STAT 04/19/2019 Difficu lty walking (72286) (ALB,T.PRO,BILI 9:00 PM HOOK UP DRIVER T,BU/BC,ALT,AST,ALK PHOS) BASIC METABOLIC PANEL STAT 04/19/2019 Difficul ty walking (NA, K, CL, CO2, GLUCOSE, 9:00 PM HOOK UP DRIVER BUN, CREATININE, CA) CBC WITH DIFFERENTIAL Routine 04/19/2019 Difficul ty walking 9:[address] HEAD WO CONTRAST STAT 04/19/2019 Difficulty walking 8:53 PM HOOK UP DRIVER EMERGENCY SERVICES Routine 04/19/2019 AGREEMENTS AND 12:01 AM HOOK UP DRIVER AUTHORIZATIONS CT ABDOMEN PELVIS W STAT 04/03/2019 LLQ abdomi nal pain CONTRAST 12:01 AM HOOK UP DRIVER COMP. METABOLIC PANEL STAT 04/02/2019 LLQ abdo gisselle pain (16361) 9:02 PM HOOK UP DRIVER CBC WITH DIFFERENTIAL STAT 04/02/2019 LLQ abdo gisselle pain 9:02 PM HOOK UP DRIVER EMERGENCY SERVICES Routine 04/02/2019 AGREEMENTS AND 12:01 AM HOOK UP DRIVER AUTHORIZATIONS XR ABDOMEN ACUTE SERIES STAT 04/01/2019 Abdomi nal pain, 8:36 PM HOOK UP DRIVER unspecified abdominal location EMERGENCY SERVICES Routine 04/01/2019 AGREEMENTS AND 12:01 AM HOOK UP DRIVER AUTHORIZATIONS from Last 3 Months Results * MRSA / MSSA Screen by PCR, Nares (06/19/2019 10:01 PM CDT) Pathologist [facility] MRSA Screen by Negative Negative [facility] PCR, Nares SERVICES MSSA Screen by Negative Negative [facility] PCR, Nares SERVICES MRSA/MSSA No No [facility] Positive? SERVICES Specimen Swab - NARES, BOTH SIDES Performing Organization Address [facility] Ph one Number [facility] CLIA: [id number], [address] [place] [address] [facility] * MYOGLOBIN SERUM (06/19/2019 8:54 PM CDT) Pathologist [facility] MYOGLOB S 75.4 <=121.0 ng/mL [facility] SERVICES Specimen Blood - ARM, LEFT Narrative Performed At [facility] has been reported to cause a neg ative bias, interpret results relative to [facility] patient's use of biotin. SERVICES Performing Organization Address [facility] Ph one Number [facility] CLIA: [id number], [address] [place] [address] [facility] * CREATINE KINASE (06/19/2019 8:54 PM CDT) Pathologist [facility] CK 68 33 - 194 U/L [facility] SERVICES Specimen Blood - ARM, LEFT Performing Organization Address City/State/Zipcode Ph one Number [facility] CLIA: [id number], [address] [place] [address] * CT THORAX W CONTRAST (06/19/2019 [...] Ko I, Carlos Matamoros MD., have reviewed [facility] study and agree with the [...] with the above report. Performing Organization Address City/State[facility] Ph one Number PACS/VR/DOSE * CT HEAD [...] OBVIOUS SERIOUS INJURIES) COMPARISON: 10/17/2018, head CT 1/25/20. TECHNIQUE: Helical CT scan of the head, [...] with the above report. Performing Organization Address City/State/[facility] Ph one Number PACS/VR/DOSE * CT ABDOMEN [...] with the above report. Performing Organization Address City/State[facility] Ph one Number PACS/VR/DOSE * XR CHEST 1 VW (06/19/2019 8:32 PM CDT) Specimen Impressions Performed At No acute thoracic abnormality. PACS/VR/DOSE Preliminary Report Dictated by Resident : Carols Marshall MD., have reviewed is study and [...] left third and fourth ribs. Procedure Note [facility], Radiant Results Inft User - [...] with the above report. Performing Organization Address [facility] one Number PACS/VR/DOSE * Type [...] at [facility] Laboratory Services - [facility] Blood Bank [address] [place] [address] Toll Free: [phone] CLIA No. [id number] IAT Negative LAB Comment: Performed at [facility] Laboratory Services - [facility] Blood Bank [address] [place] [address] Toll Free: [phone] CLIA No. [id number] Specimen Blood - VENOUS Performing Organization Address City/[facility] Ph one Number D LAB * aPTT (06/19/2019 8:25 PM CDT) APTT Patient 26 26 - 36 Seconds [facility] LABORATOR Y SERVICES Specimen Blood - ARM, LEFT Performing Organization Address City/[facility] Ph one Number [facility] CLIA: [id number], [address] [place] [address] [facility] * Prothrombin Time (PT) / INR (06/19/2019 8:25 PM CDT) PROTIME PATIENT 10.9 10.1 - 12.6 Seconds [facility] LAB[facility]AT[facility] SERVICES INR 1.0Comment: Normal INR <1.1; [facility] Warfarin Therapeutic range 2.0 SERVICES to 3.0 or 2.5 to 3.5, depending upon the indications. Specimen Blood - ARM, LEFT Performing Organization Address [facility] Ph one Number [facility] CLIA: [id number], [address] [place] [address] [facility] * Profile / Hemogram (06/19/2019 8:25 PM CDT) Pathologist [facility] WBC 7.95 4.20 - 10.70 [facility] [...] HOSPITAL LABORATORY SERVICES NRBC x10^3 <0.01 10*3/L [facility] NRBC/100 WBC 0.0 0.0 - 10.0 /100 WBCs [facility] SERVICES IPF % [facility] SERVICES Specimen Blood - ARM, LEFT Performing Organization Address [facility] Ph one Number [facility] CLIA: [id number], [address] [place] [address] [facility] * Basic Metabolic Panel [...] Number [facility] CLIA: [id number], [address] [place] [address] [facility] * HOSPITAL ADMISSION (06/19/2019 12:01 AM CDT) Specimen Performing Organization Address City/State/Zipcode Ph one Number [facility] * EMERGENCY DEPARTMENT DOCUMENTS (06/19/2019 12:01 AM CDT) Specimen Performing Organization Address City/State/Zipcode Ph one Number [facility] * AUTHORIZATION FOR RELEASE OF PHI (06/16/2019 12:01 AM CDT) Specimen Performing Organization Address City/State/Zipcode Ph one Number [facility] * XR LUMBAR SPINE 2 VW (05/29/2019 2:58 PM HOOK UP DRIVER) Specimen Impressions Performed At FINDINGS/IMPRESSION:: PACS/VR/DOSE Frontal [...] Results Inft User - 05/29/2019 3:15 PM HOOK UP DRIVER EXAM: XR LUMBAR SPINE 2 VW HISTORY: [...] PACS/VR/DOSE * PATIENT QUESTIONNAIRE (05/29/2019 12:01 AM HOOK UP DRIVER) Specimen Performing Organization Address City/[facility] Ph one Number HIM * DRUG SCREEN PANEL 2 URINE (04/19/2019 9:20 PM HOOK UP DRIVER) AMPHET Negative Negative [facility] [...] employment testing, legal testing). Performing Organization Address City/State[facility] Ph one Number [facility] CLIA: [id number], [address] [place] [address] [facility] * CBC WITH DIFFERENTIAL (04/19/2019 9:00 PM HOOK UP DRIVER) Only the most recent of 2 results [...] SERVICES MCHC 32.8 31.2 - 35.0 g/dL [facility] RY SERVICES RDW-SD 47.5 38.5 - 51.6 fL [facility] RDW-CV 14.7 12.1 - 15.4 [...] Ph one Number [facility] CLIA: [id number], [address] [place] [address] [facility] * Hepatic Function Panel (ALB, T.PRO, BILI T, BU/BC, ALT, AST, ALK PHOS) (04/19/2019 9:00 PM HOOK UP DRIVER) TOTAL BILI 0.3 0.1 - 1.1 mg/dL [...] Specimen Blood - VENOUS Performing Organization Address [facility] one Number [facility] CLIA: [id number], [address] [place] [address] [facility] * Troponin I (04/19/2019 9:00 PM HOOK UP DRIVER) TROPONIN I 0.004 <=0.034 ng/mL [facility] [...] patient's use of biotin. Performing Organization Address [facility] one Number [facility] CLIA: [id number], [address] [place] [address] [facility] * EMERGENCY SERVICES AGREEMENTS AND AUTHORIZATIONS (04/19/2019 12:01 AM HOOK UP DRIVER) Only the most recent of 3 results within the time period is included. Specimen Performing Organization Address [facility] one Number HIM * COMP. METABOLIC PANEL (43086) (04/02/2019 9:02 PM HOOK UP DRIVER) NA 143 135 - 145 mmol/L [facility] RY SERVICES K 3.9 3.5 - 5.0 mmol/L [facility] RY SERVICES CL 106 98 - [...] AST(SGOT) 41 (H) 13 - 40 U/L [facility] SERVICES eGFR 114.4 mL/min/1.73m2 [facility] Calculation SERVICES (Non-) eGFR 138.6 mL/min/1.73m2 [facility] Calculation SERVICES [...] Number [facility] CLIA: [id number], [address] [place] [address] [facility] * XR ABDOMEN ACUTE SERIES (04/01/2019 8:36 PM HOOK UP DRIVER) Specimen Impressions Performed At No acute cardiopulmonary [...] Results Inft User - 04/01/2019 9:45 PM HOOK UP DRIVER XR ABDOMEN ACUTE SERIES HISTORY: abdominal pain, [...] P O MARGI X OF [facility] [address] [place] [address] Harvey Christie Hearing Self 1960 [address] [employer] [address] [employer] Aids (Home) [place] [id number] [employer] Advance Directives Relationship Healthcare Agent Relationship Communicat ion Name Emergency Contact Primary healthcare agent [phone] (M obile) Luanne Carson Child First alternate healthcare agent Rico Christie
--- OUTSIDE RECORDS SUMMARY | 2019-11-04 15:55 | XMS REPORT | Clinical Summary ---
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 Pt informed 03/13/16.- Angelica Valero [...] Benzodiazepine abuse 04/19/2019 Emergency Emergency Medicine Team, [facility] HEALTH MAINTENANCE 04/18/2019 Telephone Public Health & Gen era Preventive Medicine Golden Rivera, RN HEALTH MAINTENANCE (High [...] Implanted Type Area Manufactur er 04/26/20172017-40 / [id number] / [id number] Dbm Putty Maxxeus 10cc Cts #2017- BONE Left: [facility] - [id number] Tissue Implanted: Qty: 1 on 11/10/2015 by Services Harrison Wise MD at [facility] 07/07/2020 1234-12 / [id number] / [id number] Cancellous Crushed, Community BONE Left: [facility] Tissue Services (1 10mm) Freeze Tissue Dried 60.0 Cc #1234-12 - [id number] Services Implanted: Qty: 1 on 11/10/2015 by Harrison Wise MD at [facility] 10/16/2021 1235-12 / [id number] / [id number] Cancellous Crushed, [facility] BONE N/A: [facility] Tissue Services (1 10mm) Freeze Tissue Dried 90.0 Cc #1235-12 - Services [id number] Implanted: Qty: 1 on 01/19/2017 by Harrison Wise MD at [facility] 09/22/20182017- / [id number] / [id number] Dbm Putty Maxxeus 10cc Cts #2017- BONE N/A: Back [facility] - [id number] Tissue Implanted: Qty: 1 on 01/19/2017 by Services Harrison Wise MD at [facility] 07/23/2018 [id number] / [id number] Duraseal, Covidien Improved Dural Duraseal N/A: Spine Tyco/Covid Sealant System 5ml #[id number] - [id number] ien Implanted: Qty: 1 on 08/08/2017 by Harrison Wise MD at [facility] 01/19/2027 [id number] / 0 / [id number] Yareli 4.75 Ccm Ns Curved 70mm Solara YARELI N/A: Back Medtronic Medtronic #[id number] - [id number] Implanted: Qty: 2 on 01/19/2017 by Harrison Wise MD at [facility] 11/09/2025 [id number] / 0000 / [id number] Screw Solera 6.5x30mm Medtronic SCREW Left: Spine Medtronic #[id number] - [id number] Implanted: Qty: 2 on 11/10/2015 by Harrison Wise MD at [facility] 11/09/2025 [id number] / 0000 / [id number] Screw, Medtronic Solara 6.5x45 SCREW Left: Spine Medtronic #[id number] - [id number] Implanted: Qty: 2 on 11/10/2015 by Harrison Wise MD at [facility] 01/19/2027 [id number] / 0 / [id number] Screw Solera 8.5x30mm Mas Medtronic SCREW N/A: Back Medtronic #[id number] Implanted: Qty: 2 on 01/19/2017 by Harrison Wise MD at [facility] 01/19/2027 [id number] / 0 / [id number] Screw, Medtronic Solara 6.5x45 SCREW N/A: Back Medtronic #[id number] - S0 Implanted: Qty: 2 on 01/19/2017 by Harrison Wise MD at [facility] 08/09/2027 [id number] / 00 / 00 Screw, Medtronic # Set Break Off Ti SCREW N/A: Spine Medtronic #[id number] - [id number] Implanted: Qty: 3 on 08/08/2017 by Harrison Wise MD at [facility] Description:No charge for any implant per Cordell Belltegee Rep 11/09/2025 [id number] / 000 / [id number] Screw Solera 4.75 Ti Ns Break Off Left: Spine Med tronic Medtronic #[id number] - [id number] Implanted: Qty: 4 on 11/10/2015 by Harrison Wise MD at [facility] 11/09/2025 [id number] / 0000 / [id number] Yareli 4.75 Ccm Ns Curved 45mm Solera Left: Spine Me dtronic Medtronic #[id number] - [id number] Implanted: Qty: 2 on 11/10/2015 by Harrison Wise MD at [facility] 01/19/2027 [id number] / 0 / [id number] Screw Solera 4.75 Ti Ns Break Off N/A: Back Med tronic Medtronic #[id number] - S0 Implanted: Qty: 6 on 01/19/2017 by Harrison Wise MD at [facility] 01/19/2027 [id number] / 0 / [id number] Screw Solera 7.5x45mm Medtronic N/A: Back Medtr onic #[id number] - S0 Implanted: Qty: 2 on 01/19/2017 by Harrison Wise MD at [facility] Procedures Comments Procedure Name Priority [...] Chronic l ow back pain, 2:58 PM HONE OPERATOR unspecified back pain laterality, unspecified whether sciatica present PATIENT QUESTIONNAIRE Routine 05/29/2019 12:01 AM HONE OPERATOR GALV/CLC ONLY - URINE STAT 04/19/2019 Difficul ty walking DRUG (IMMUNOASSAY) - 9:20 PM HONE OPERATOR COMPREHENSIVE DRUG SCREEN CBC WITH DIFFERENTIAL STAT 04/19/2019 Difficul ty walking 9:00 PM HONE OPERATOR TROPONIN I STAT 04/19/2019 Difficulty walk ing 9:00 PM HONE OPERATOR HEPATIC FUNCTION PANEL STAT 04/19/2019 Difficu lty walking (10261) (ALB,T.PRO,BILI 9:00 PM HONE OPERATOR T,BU/BC,ALT,AST,ALK PHOS) BASIC METABOLIC PANEL STAT 04/19/2019 Difficul ty walking (NA, K, CL, CO2, GLUCOSE, 9:00 PM HONE OPERATOR BUN, CREATININE, CA) CBC WITH DIFFERENTIAL Routine 04/19/2019 Difficul ty walking 9:[address] HEAD WO CONTRAST STAT 04/19/2019 Difficulty walking 8:53 PM HONE OPERATOR EMERGENCY SERVICES Routine 04/19/2019 AGREEMENTS AND 12:01 AM HONE OPERATOR AUTHORIZATIONS from Last 3 Months Results * MRSA / MSSA Screen by PCR, Nares (06/19/2019 10:01 PM CDT) MRSA Screen by Negative Negative [facility] PCR, Nares SERVICES MSSA Screen by Negative Negative [facility] PCR, Nares SERVICES MRSA/MSSA No No [facility] Positive? SERVICES Specimen Swab - NARES, BOTH SIDES Performing Organization Address [facility] one Number [facility] SERVICES CLIA: [id number], [address] [place] [address] [facility] * MYOGLOBIN SERUM (06/19/2019 8:54 PM CDT) MYOGLOB S 75.4 <=121.0 ng/mL [facility] SERVICES Specimen Blood - ARM, LEFT Narrative Performed At [facility] has been reported to cause a neg ative bias, interpret results relative to [facility] patient's use of biotin. SERVICES Performing Organization Address [facility] one Number [facility] SERVICES CLIA: [id number], [address] [place] [address] [facility] * CREATINE KINASE (06/19/2019 8:54 PM CDT) CK 68 33 - 194 U/L [facility] SERVICES Specimen Blood - ARM, LEFT Performing Organization Address [facility] one Number [facility] SERVICES CLIA: [id number], [address] [place] [address] [facility] * CT THORAX W CONTRAST (06/19/2019 8:50 [...] with the above report. Performing Organization Address City/State/[facility] Ph one Number PACS/VR/DOSE * CT LUMBAR [...] dictated CT chest for detailed evaluation of [facility] racic findings. LIVER: No focal hepatic [...] with the above report. Performing Organization Address [facility] one Number PACS/VR/DOSE * Type and Screen - The Type and Screen expires at midnight on the 3rd day after it was drawn. A current Type and Screen is required when RBCs are requested. For all other blood products, a Type and Screen performed during the current hospitalizati... (06/19/2019 8:26 PM CDT) Pathologist [facility] ABO & RH A POSITIVE LAB Comment: Performed at [facility] Laboratory Services - [facility] Blood Bank [address] [place] [address] Toll Free: [phone] CLIA No. [id number] IAT Negative LAB Comment: Performed at [facility] Laboratory Services - [facility] Blood [place] [address] Toll Free: [phone] CLIA No. [id number] Specimen Blood - VENOUS Performing Organization Address [facility] Number D LAB * aPTT (06/19/2019 8:25 PM CDT) [facility] APTT Patient 26 26 - 36 Seconds [facility] LABORATOR Y SERVICES Specimen Blood - ARM, LEFT Performing Organization Address [facility] one Number [facility] SERVICES CLIA: [id number], [address] [place] [address] [facility] * Prothrombin Time (PT) / INR (06/19/2019 8:25 PM CDT) Pathologist [facility] PROTIME PATIENT 10.9 10.1 - 12.6 Seconds [facility] LABO RATORY SERVICES INR 1.0Comment: Normal INR <1.1; [facility] LAB ORATORY Warfarin Therapeutic range 2.0 SERVICES to 3.0 or 2.5 to 3.5, depending upon the indications. Specimen Blood - ARM, LEFT Performing Organization Address [facility] one Number [facility] SERVICES CLIA: [id number], [address] [place] [address] [facility] * Profile / Hemogram (06/19/2019 8:25 PM CDT) WBC 7.95 4.20 - 10.70 [facility] 10*3/L SERVICES RBC 4.91 4.26 - 5.52 10*6/L [facility] LABO RATORY SERVICES HGB 14.3 12.2 - 16.4 g/dL [facility] RY SERVICES HCT 43.4 38.4 - 49.3 % [facility] MCH 29.1 26.1 - 32.7 pg [facility] MCV 88.4 81.7 - 95.6 fL [facility] MCHC 32.9 31.2 - 35.0 g/dL [facility] RY SERVICES PLT 210 150 - 328 10*3/L [facility]ORA TORY SERVICES MPV 9.0 (L) 9.8 - 13.0 fL [facility] RDW-CV 14.2 12.1 - 15.4 % [facility] RDW-SD 45.7 38.5 - 51.6 fL [facility] SERVICES NRBC x10^3 <0.01 10*3/L [facility] NRBC/100 WBC 0.0 0.0 - 10.0 /100 WBCs [facility] LABO [facility]ATORY SERVICES IPF % [facility] SERVICES Specimen Blood - ARM, LEFT Performing Organization Address City/State/Zipcode Ph one Number [facility] SERVICES CLIA: [id number], [address] [place] [address] [facility] * Basic Metabolic Panel (NA, K, CL, CO2, GLUCOSE, BUN, CREATININE, CA) (06/19/2019 8:25 PM CDT) Only the most recent of 2 results within the time period is included. NA 141 135 - 145 mmol/L [facility] RY SERVICES K 4.3 3.5 - 5.0 mmol/L [facility] RY SERVICES CL 105 98 - 108 mmol/L [facility] LABORATOR Y SERVICES CO2 TOTAL 26 23 - 31 mmol/L [facility] SERVICES AGAP 10 2 - 16 [facility] BUN 9 7 - 23 mg/dL [facility] GLUCOSE 86 70 - 110 mg/dL [facility] CREATININE 0.80 0.60 - 1.25 mg/dL [facility]ORAT ORY SERVICES CALCIUM 9.3 8.6 - 10.6 mg/dL [facility] RY SERVICES eGFR 99.6 mL/min/1.73m2 [facility] Calculation SERVICES (Non-) eGFR 120.8 mL/min/1.73m2 [facility] Calculation SERVICES () Specimen Blood - ARM, LEFT Narrative Performed At Association of Glomerular Filtration Rate (GFR) and S taging of Kidney Disease* [facility] + + +------ + SERVICES | [...] Performing Organization Address City/State/Zipcode Ph one Number [facility] SERVICES CLIA: [id number], [address] [place] [address] [facility] * HOSPITAL ADMISSION (06/19/2019 12:01 AM CDT) [...] LUMBAR SPINE 2 VW (05/29/2019 2:58 PM HONE OPERATOR) Specimen Impressions Performed At FINDINGS/IMPRESSION:: PACS/VR/DOSE Frontal [...] Results Inft User - 05/29/2019 3:15 PM HONE OPERATOR EXAM: XR LUMBAR SPINE 2 VW HISTORY: [...] PACS/VR/DOSE * PATIENT QUESTIONNAIRE (05/29/2019 12:01 AM HONE OPERATOR) Specimen Performing Organization Address City/[facility] Ph one Number HIM * DRUG SCREEN PANEL 2 URINE (04/19/2019 9:20 PM HONE OPERATOR) AMPHET Negative Negative [facility] SERVICES KRYSTIN U Negative Negative [facility] BENZO U Presumptive Positive (A) Negative [facility] Cocaine Negative Negative [facility] Metabolite SERVICES METHADONE Negative Negative [facility] OPIATES Presumptive Positive (A) Negative [facility] PCP Negative Negative [facility] SERVICES THC Presumptive Positive (A) Negative [facility] SERVICES Specimen Urine - URINE, CLEAN CATCH Narrative Performed At Urine Drug Cutoff Ranges [facility] Cocaine: 150 ng/mL SERVICES Benzodiazepines: 200 [...] Ph one Number [facility] CLIA: [id number], [address] [place] [address] [facility] * CBC WITH DIFFERENTIAL (04/19/2019 9:00 PM HONE OPERATOR) WBC 7.15 4.20 - 10.70 [facility] [...] Specimen Blood - VENOUS Performing Organization Address [facility] one Number [facility] SERVICES CLIA: [id number], [address] [place] [address] [facility] * Hepatic Function Panel (ALB, T.PRO, BILI T, BU/BC, ALT, AST, ALK PHOS) (04/19/2019 9:00 PM HONE OPERATOR) [facility] TOTAL BILI 0.3 0.1 - 1.1 mg/dL [facility] BILI UNCON 0.2 0.1 - 1.1 mg/dL [facility] BILI CONJ 0.0 0.0 - 0.3 mg/dL [facility] T PROTEIN 6.7 6.3 - 8.2 g/dL [facility] ALBUMIN 3.9 3.5 - 5.0 g/dL [facility] ALK PHOS 64 34 - 122 U/L [facility] ALTv 19 5 - 50 U/L [facility] SERVICES AST(SGOT) 35 13 - 40 U/L [facility] SERVICES Specimen Blood - VENOUS Performing Organization Address [facility] one Number [facility] SERVICES CLIA: [id number], [address] [place] [address] [facility] * Troponin I (04/19/2019 9:00 PM HONE OPERATOR) Pathologist [facility] TROPONIN I 0.004 <=0.034 ng/mL [facility] SERVICES Specimen Blood - VENOUS Narrative Performed At Equal or Less than 0.034 ng/ml---Normal [facility] Note: Cardiac troponin begins to [...] Performing Organization Address City/State/Zipcode Ph one Number [facility] SERVICES CLIA: [id number], [address] [place] [address] [facility] * EMERGENCY SERVICES AGREEMENTS AND AUTHORIZATIONS (04/19/2019 12:01 AM HONE OPERATOR) Specimen Performing Organization Address City/State/Zipcode Ph one Number HIM from Last 3 Months Insurance Type Payer Benefit Subscriber ID Effective Phone Address Plan / Dates Group Medicaid [employer] xxxxxxxxx 2015-P P O [facility] [address] [place] [address] [employer] Advance Directives Relationship Healthcare Agent Relationship Communicat ion Name Emergency Contact Primary healthcare agent [phone] (M obile) Luanne Carson Child First alternate healthcare agent Rico Christie
--- OUTSIDE RECORDS SUMMARY | 2019-11-04 15:55 | XMS REPORT | Clinical Summary ---
Author Author [facility] - [facility] Organization [facility] - Health Address Unknown Phone Unavailable Care Team Providers Care Public Address Systems Mechanic Name Role Phone Gabriella Coyle MD 12 Unavailable Pcp, Patient Does Not Have A PCP [phone] Allergies Comments Active Allergy Reactions Severity Noted Date Penicillins Rash 11/09/2015 Medications No known medications Active Problems Problem Noted Date Trauma 06/19/2019 Concussion with loss of consciousness 06/19/[address] 06/19/2019 Apnea for greater than 15 seconds 06/19/2019 Infection 09/28/2017 Chronic midline low back pain without sciatica 09/27 Overview: Added automatically from request for gerber wendy [id number] Wound dehiscence 08/23/2017 Hardware complicating wound infection 08/18/2017 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 09/21/2016 Overview: Added automatically from request for gerber wendy [id number] Chronic diastolic congestive heart failure 7 Narcotic [...] Benzodiazepine abuse 04/19/2019 Emergency Emergency Medicine Team, [facility] Health Maintenance HEALTH MAINTENANCE 04/18/2019 [...] Implanted Type Area Manufactur er 04/26/20172017-40 / [id number] / [id number] Dbm Putty Maxxeus 10cc Cts # BONE Left: Spin e Community - [id number] Tissue Implanted: Qty: 1 on 11/10/2015 by Services Harrison Wise MD at [facility] 07/07/2020 1234-12 / [id number] / [id number] Cancellous Crushed, Community BONE Left: Spine [facility] Services (1 10mm) Freeze Tissue Dried 60.0 Cc #1234-12 - [id number] Services Implanted: Qty: 1 on 11/10/2015 by Harrison Wise MD at [facility] 10/16/2021 1235-12 / [id number] / [id number] Cancellous Crushed, [facility] BONE N/A: Back [facility] (1 10mm) Freeze Tissue Dried 90.0 Cc #1235-12 - Services [id number] Implanted: Qty: 1 on 01/19/2017 by Harrison Wise MD at [facility] 09/22/2018 / [id number] / [id number] Dbm Putty Maxxeus 10cc Cts # BONE N/A: Back [facility] - [id number] Tissue Implanted: Qty: 1 on 01/19/2017 by Services Harrison Wise MD at [facility] 07/23/2018218052 Duraseal, Covidien Improved Dural Duraseal N/A: Spine Tyco/Covid Sealant System 5ml #[id number] - [id number] ien Implanted: Qty: 1 on 08/08/2017 by Harrison Wise MD at [facility] 01/19/2027 [id number] / 0 / [id number] Yareli 4.75 Ccm Ns Curved 70mm Solara YARELI N/A: Back Medtronic Medtronic #[id number] - [id number] Implanted: Qty: 2 on 01/19/2017 by Harrison Wise MD at [facility] 11/09/2025 [id number] / 0000 / [id number] Screw Solera 6.5x30mm Medtronic SCREW Left: Spine Medtronic #[id number] - [id number] Implanted: Qty: 2 on 11/10/2015 by Harrison Wise MD at [facility] 11/09/2025 [id number] / 0000 / [id number] Screw, Medtronic Solara 6.5x45 SCREW Left: Spine Medtronic #[id number] - [id number] Implanted: Qty: 2 on 11/10/2015 by Harrison Wise MD at [facility] 01/19/2027 [id number] / 0 / [id number] Screw Solera 8.5x30mm Mas Medtronic SCREW N/A: Back Medtronic #[id number] Implanted: Qty: 2 on 01/19/2017 by Harrison Wise MD at [facility] 01/19/2027 [id number] / 0 / [id number] Screw, Medtronic Solara 6.5x45 SCREW N/A: Back Medtronic #[id number] - S0 Implanted: Qty: 2 on 01/19/2017 by Harrison Wise MD at [facility] 08/09/2027 [id number] / 00 / [id number] Screw, Medtronic # Set Break Off Ti SCREW N/A: Spine Medtronic #[id number] - [id number] Implanted: Qty: 3 on 08/08/2017 by Harrison Wise MD at [facility] Description:No charge for any implant per Hortensia Bell 11/09/2025 [id number] / 000 / [id number] Screw Solera 4.75 Ti Ns Break Off Left: Spine Med tronic Medtronic #[id number] - [id number] Implanted: Qty: 4 on 11/10/2015 by Harrison Wise MD at [facility] 11/09/2025 [id number] / 0000 / [id number] Yareli 4.75 Ccm Ns Curved 45mm Solera Left: Spine Me dtronic Medtronic #[id number] - [id number] Implanted: Qty: 2 on 11/10/2015 by Harrison Wise MD at [facility] 01/19/2027 [id number] / 0 / [id number] Screw Solera 4.75 Ti Ns Break Off N/A: Back Med tronic Medtronic #[id number] - S0 Implanted: Qty: 6 on 01/19/2017 by Harrison Wise MD at [facility] 01/19/2027 [id number] / 0 / [id number] Screw Solera 7.5x45mm Medtronic N/A: Back Medtr onic #[id number] - S0 Implanted: Qty: 2 on 01/19/2017 by Harrison Wise MD at [facility] Procedures Comments Procedure Name Priority Date/Time [...] Chronic l ow back pain, 2:58 PM SILICA MIXER OPERATOR unspecified back pain laterality, unspecified whether sciatica present PATIENT QUESTIONNAIRE Routine 05/29/2019 12:01 AM SILICA MIXER OPERATOR GALV/CLC ONLY - URINE STAT 04/19/2019 Difficul ty walking DRUG (IMMUNOASSAY) - 9:20 PM SILICA MIXER OPERATOR COMPREHENSIVE DRUG SCREEN CBC WITH DIFFERENTIAL STAT 04/19/2019 Difficul ty walking 9:00 PM SILICA MIXER OPERATOR TROPONIN I STAT 04/19/2019 Difficulty walk ing 9:00 PM SILICA MIXER OPERATOR HEPATIC FUNCTION PANEL STAT 04/19/2019 Difficu lty walking (00817) (ALB,T.PRO,BILI 9:00 PM SILICA MIXER OPERATOR T,BU/BC,ALT,AST,ALK PHOS) BASIC METABOLIC PANEL STAT 04/19/2019 Difficul ty walking (NA, K, CL, CO2, GLUCOSE, 9:00 PM SILICA MIXER OPERATOR BUN, CREATININE, CA) CBC WITH DIFFERENTIAL Routine 04/19/2019 Difficul ty walking 9:00 PM SILICA MIXER OPERATOR CT HEAD WO CONTRAST STAT 04/19/2019 Difficulty walking 8:53 PM SILICA MIXER OPERATOR EMERGENCY SERVICES Routine 04/19/2019 AGREEMENTS AND 12:01 AM SILICA MIXER OPERATOR AUTHORIZATIONS CT ABDOMEN PELVIS W STAT 04/03/2019 LLQ abdomi nal pain CONTRAST 12:01 AM SILICA MIXER OPERATOR COMP. METABOLIC PANEL STAT 04/02/2019 LLQ abdo gisselle pain (95168) 9:02 PM SILICA MIXER OPERATOR CBC WITH DIFFERENTIAL STAT 04/02/2019 LLQ abdo gisselle pain 9:02 PM SILICA MIXER OPERATOR EMERGENCY SERVICES Routine 04/02/2019 AGREEMENTS AND 12:01 AM SILICA MIXER OPERATOR AUTHORIZATIONS XR ABDOMEN ACUTE SERIES STAT 04/01/2019 Abdomi nal pain, 8:36 PM SILICA MIXER OPERATOR unspecified abdominal location EMERGENCY SERVICES Routine 04/01/2019 AGREEMENTS AND 12:01 AM SILICA MIXER OPERATOR AUTHORIZATIONS from Last 3 Months Results * MRSA / MSSA Screen by PCR, Nares (06/19/2019 10:01 PM CDT) Pathologist [facility] MRSA Screen by Negative Negative [facility] PCR, Nares SERVICES MSSA Screen by Negative Negative [facility] PCR, Nares SERVICES MRSA/MSSA No No [facility] Positive? SERVICES Specimen Swab - NARES, BOTH SIDES Performing Organization Address [facility] Ph one Number [facility] CLIA: [id number], [address] [place] [address] [facility] * MYOGLOBIN SERUM (06/19/2019 8:54 PM CDT) Pathologist [facility] MYOGLOB S 75.4 <=121.0 ng/mL [facility] Specimen Blood - ARM, LEFT Narrative Performed At [facility] has been reported to cause a neg ative bias, interpret results relative to [facility] patient's use of biotin. SERVICES Performing Organization Address [facility] Ph one Number [facility] CLIA: [id number], [address] [place] [address] [facility] * CREATINE KINASE (06/19/2019 8:54 PM CDT) Pathologist [facility] CK 68 33 - 194 U/L [facility] Specimen Blood - ARM, LEFT Performing Organization Address City/State/Zipcode Ph one Number [facility] CLIA: [id number], [address] [place] [address] * CT THORAX W CONTRAST (06/19/2019 [...] Ko I, Carlos Matamoros MD., have reviewed [facility] study and agree with the above report. [...] with the above report. Performing Organization Address [facility]State[facility] Ph one Number PACS/VR/DOSE * CT [...] with the above report. Performing Organization Address City/State/[facility] Ph one Number PACS/VR/DOSE * CT ABDOMEN [...] with the above report. Performing Organization Address [facility]State[facility] Ph one Number PACS/VR/DOSE * XR CHEST [...] left third and fourth ribs. Procedure Note [facility], Radiant Results Inft User - [...] with the above report. Performing Organization Address [facility] one Number PACS/VR/DOSE * Type and Screen - The Type and Screen expires at midnight on the 3rd day after it was drawn. A current Type and Screen is required when RBCs are requested. For all other blood products, a Type and Screen performed during the current hospitalizati... (06/19/2019 8:26 PM CDT) ABO & RH A POSITIVE LAB Comment: Performed at [facility] Laboratory Services - [facility] Blood [facility] [address] [place] [address] Toll Free: [phone] CLIA No. [id number] IAT Negative LAB Comment: Performed at [facility] Laboratory Services - [facility] Blood [facility] [address] [place] [address] Toll Free: [phone] CLIA No. [id number] Specimen Blood - VENOUS Performing Organization Address City/[facility] Ph one Number D LAB * aPTT (06/19/2019 8:25 PM CDT) APTT Patient 26 26 - 36 Seconds [facility] Y SERVICES Specimen Blood - ARM, LEFT Performing Organization Address City/[facility] Ph one Number [facility] CLIA: [id number], [address] [place] [address] [facility] * Prothrombin Time (PT) / INR (06/19/2019 8:25 PM CDT) PROTIME PATIENT 10.9 10.1 - 12.6 Seconds [facility] INR 1.0Comment: Normal INR <1.1; [facility] Warfarin Therapeutic range 2.0 SERVICES to 3.0 or 2.5 to 3.5, depending upon the indications. Specimen Blood - ARM, LEFT Performing Organization Address [facility] Ph one Number [facility] CLIA: [id number], [address] [place] [address] [facility] * Profile / Hemogram (06/19/2019 8:25 PM CDT) Pathologist [facility] WBC 7.95 4.20 - 10.70 [facility] 10*3/L SERVICES RBC 4.91 4.26 - 5.52 10*6/L [facility] HGB 14.3 12.2 - 16.4 g/dL [facility] RY SERVICES HCT 43.4 38.4 - 49.3 % [facility] MCH 29.1 26.1 - 32.7 pg [facility] MCV 88.4 81.7 - 95.6 fL [facility] MCHC 32.9 31.2 - 35.0 g/dL [facility] RY SERVICES PLT 210 150 - 328 10*3/L [facility] MPV 9.0 (L) 9.8 - 13.0 fL [facility] RDW-CV 14.2 12.1 - 15.4 % [facility] RDW-SD 45.7 38.5 - 51.6 fL [facility] NRBC x10^3 <0.01 10*3/L [facility] NRBC/100 WBC 0.0 0.0 - 10.0 /100 WBCs [facility] IPF % [facility] Specimen Blood - ARM, LEFT Performing Organization Address [facility] Ph one Number [facility] CLIA: [id number], [address] [place] [address] [facility] * Basic Metabolic Panel (NA, K, CL, CO2, GLUCOSE, BUN, CREATININE, CA) (06/19/2019 8:25 PM CDT) Only the most recent of 2 results within the time period is included. NA 141 135 - 145 mmol/L [facility] K 4.3 3.5 - 5.0 mmol/L [facility] CL 105 98 - 108 mmol/L [facility] CO2 TOTAL 26 23 - 31 mmol/L [facility] AGAP 10 2 - 16 [facility] BUN 9 7 - 23 mg/dL [facility] GLUCOSE 86 70 - 110 mg/dL [facility] CREATININE 0.80 0.60 - 1.25 mg/dL [facility] ORY SERVICES CALCIUM 9.3 8.6 - 10.6 mg/dL [facility] RY SERVICES eGFR 99.6 mL/min/1.73m2 [facility] Calculation SERVICES (Non-) eGFR 120.8 mL/min/1.73m2 [facility] Calculation SERVICES () Specimen Blood - ARM, LEFT Narrative Performed At Association of Glomerular Filtration Rate (GFR) and S taging of Kidney Disease* [facility] + + +------ + SERVICES [...] Performing Organization Address City/State/Zipcode Ph one Number [facility] CLIA: [id number], [address] [place] [address] [facility] * HOSPITAL ADMISSION (06/19/2019 12:01 AM CDT) Specimen Performing Organization Address City/State/Zipcode Ph one Number [facility] * EMERGENCY DEPARTMENT DOCUMENTS (06/19/2019 12:01 AM CDT) Specimen Performing Organization Address City/State/Zipcode Ph one Number [facility] * AUTHORIZATION FOR RELEASE OF PHI (06/16/2019 12:01 AM CDT) Specimen Performing Organization Address City/State/Zipcode Ph one Number [facility] * XR LUMBAR SPINE 2 VW (05/29/2019 2:58 PM SILICA MIXER OPERATOR) Specimen Impressions Performed At FINDINGS/IMPRESSION:: PACS/VR/DOSE [...] Results Inft User - 05/29/2019 3:15 PM SILICA MIXER OPERATOR EXAM: XR LUMBAR SPINE 2 VW [...] PACS/VR/DOSE * PATIENT QUESTIONNAIRE (05/29/2019 12:01 AM SILICA MIXER OPERATOR) Specimen Performing Organization Address City[facility] Ph one Number [facility] * DRUG SCREEN PANEL 2 URINE (04/19/2019 9:20 PM SILICA MIXER OPERATOR) AMPHET Negative Negative [facility] KRYSTIN U Negative Negative [facility] BENZO U Presumptive Positive (A) Negative [facility] Cocaine Negative Negative [facility] Metabolite SERVICES METHADONE Negative Negative [facility] OPIATES Presumptive Positive (A) Negative [facility] PCP Negative Negative [facility] THC Presumptive Positive (A) Negative [facility] Specimen Urine - URINE, CLEAN CATCH Narrative Performed At Urine Drug Cutoff Ranges [facility] Cocaine: 150 ng/mL SERVICES Benzodiazepines: 200 ng/mL Methadone: 300 ng/mL Amphetamine: 1,000 ng/mL Opiates: 300 ng/mL Cannabinoids: 50 ng/mL Phencyclidine: 25 ng/mL Barbiturates: 200 ng/mL The results are to be used only for med ical (i.e., treatment) purposes. Unconfirmed screening results must not be used for non-medical purposes (e.g., employment testing, legal testing). Performing Organization Address City[facility]State[facility] Ph one Number [facility] CLIA: [id number], [address] [place] [address] [facility] * CBC WITH DIFFERENTIAL (04/19/2019 9:00 PM SILICA MIXER OPERATOR) Only the most recent of 2 results within the time period is included. WBC 7.15 4.20 - 10.70 [facility] 10*3/L SERVICES RBC 4.05 (L) 4.26 - 5.52 10*6/L [facility] HGB 11.8 (L) 12.2 - 16.4 g/dL [facility] RY SERVICES HCT 36.0 (L) 38.4 - 49.3 % [facility] MCV 88.9 81.7 - 95.6 fL [facility] MCH 29.1 26.1 - 32.7 pg [facility] MCHC 32.8 31.2 - 35.0 g/dL [facility] R[facility] SERVICES RDW-SD 47.5 38.5 - 51.6 fL [facility] RDW-CV 14.7 12.1 - [...] Ph one Number [facility] CLIA: [id number], [address] [place] [address] [facility] * Hepatic Function Panel (ALB, T.PRO, BILI T, BU/BC, ALT, AST, ALK PHOS) (04/19/2019 9:00 PM SILICA MIXER OPERATOR) TOTAL BILI 0.3 0.1 - 1.1 mg/dL [facility] BILI UNCON 0.2 0.1 - 1.1 mg/dL [facility] BILI CONJ 0.0 0.0 - 0.3 mg/dL [facility] T PROTEIN 6.7 6.3 - 8.2 g/dL [facility] ALBUMIN 3.9 3.5 - 5.0 g/dL [facility] ALK PHOS 64 34 - 122 U/L [facility] ALTv 19 5 - 50 U/L [facility] AST(SGOT) 35 13 - 40 U/L [facility] Specimen Blood - VENOUS Performing Organization Address [facility] one Number [facility] CLIA: [id number], [address] [place] [address] [facility] * Troponin I (04/19/2019 9:00 PM SILICA MIXER OPERATOR) TROPONIN I 0.004 <=0.034 ng/mL [facility] Specimen Blood - VENOUS Narrative Performed At Equal or Less than 0.034 ng/ml---Normal [facility] Note: Cardiac troponin begins [...] patient's use of biotin. Performing Organization Address [facility] one Number [facility] CLIA: [id number], [address] [place] [address] [facility] * EMERGENCY SERVICES AGREEMENTS AND AUTHORIZATIONS (04/19/2019 12:01 AM SILICA MIXER OPERATOR) Only the most recent of 3 results within the time period is included. Specimen Performing Organization Address [facility] one Number HIM * COMP. METABOLIC PANEL (95583) (04/02/2019 9:02 PM SILICA MIXER OPERATOR) NA 143 135 - 145 mmol/L [facility] K 3.9 3.5 - 5.0 mmol/L [facility] CL 106 98 [...] SERVICES ALTv 28 5 - 50 U/L [facility] AST(SGOT) 41 (H) 13 - 40 U/L [facility] eGFR 114.4 mL/min/1.73m2 [facility] Calculation SERVICES (Non-) eGFR 138.6 mL/min/1.73m2 [facility] Calculation SERVICES () Specimen Blood - VENOUS Narrative Performed At Association of Glomerular Filtration Rate (GFR) and S taging of Kidney Disease* [facility] + + +------ + SERVICES [...] Performing Organization Address City/State/Zipcode Ph one Number [facility] CLIA: [id number], [address] [place] [address] [facility] * XR ABDOMEN ACUTE SERIES (04/01/2019 8:36 PM SILICA MIXER OPERATOR) Specimen Impressions Performed At No acute cardiopulmonary [...] Results Inft User - 04/01/2019 9:45 PM SILICA MIXER OPERATOR XR ABDOMEN ACUTE SERIES HISTORY: abdominal pain, [...] xxxxxxxxx 2015-P P O MARGI X OF [facility] [address] [place] [address] Harvey Christie Hearing Self 1960 [address] Aids (Home) [place] [id number] [employer] Advance Directives Relationship Healthcare Agent Relationship Communicat ion Name Emergency Contact Primary healthcare agent [phone] (M obile) Luanne Carson Child First alternate healthcare agent Rico Christie
--- OUTSIDE RECORDS SUMMARY | 2019-11-04 15:56 | XMS REPORT | Summary of Care ---
Author Author [facility] - Health Organization [facility] - Health Address Unknown Phone Unavailable Care Team Providers Care Bag Machine Set Up Operator Name Role Phone Gabriella Coyle MD 12 Unavailable Pcp, Patient Does Not Have A PCP [phone] Reason for Visit * Reason Comments Hearing Aid Check Encounter Details Care Team Description Date Type Department Nikki Weber, PHD [address] [facility] AS[address] [place] [address] Screening/[facility] [place] Audio Bilateral sensorineural hearing loss (Pr imary Dx) 07/29/2019 Ancillary Visit [facility] fo r Audiology & Speech Path-[address] [place] [phone] Allergies Comments Active Allergy Reactions Severity Noted Date Penicillins Rash 11/09/2015 documented as of this encounter (statuses as of 07/29/2019) Medications End Date Status Medication Sig Dispensed Refills Start Date Active venlafaxine XR 150 mg 24 Take 1 30 capsule 1 0 hr capsuleIndications: capsule by 0 KELSIE (generalized anxiety mouth daily disorder) with breakfast. documented as of this encounter (statuses as of 07/29/2019) Active Problems Problem Noted Date Trauma 06/19/2019 Concussion with loss of consciousness 06/19/[address] 06/19/2019 Apnea for greater than 15 seconds 06/19/2019 Infection 09/28/2017 Chronic midline low back pain without sciatica 09/27 Overview: Added automatically from request for buzz nguyen [id number] Wound dehiscence 08/23/2017 Hardware complicating wound infection 08/18/2017 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 09/21/2016 Overview: [facility] [id number] Chronic diastolic congestive heart failure 7 Narcotic abuse 03/14/2016 Overview: No further narcotic prescriptions from [facility] Family Medicine. Pt informed [...] as of this encounter (statuses as of 07/29/2019) Resolved Problems Problem Noted Date Resolved Date [...] as of this encounter (statuses as of 07/29/2019) Immunizations Name Administration Dates Next Due DTAP [...] filedocumented in this encounter Progress Notes * Curly Price AUD - 07/29/2019 9:00 AM CDT I was available in clinic during the attempted evaluation of Harvey crum by Vanita Clarke, Audiology Business English Instructor. I have read and reviewed the repo rt, and agree as written. Gurpreet Walls, JUAN-A [place] Board of Audiology (FELIPA) Certified Retail Sales Merchandiser Development * Rosamaria Shepherd - 07/29/2019 9:00 AM CDT AUDIOLOGY HEARING AID CHECK Subjective: Harvey Christie visited today as a walk in hearing aid check. 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 Objective/Assessment: The following services were completed. Visual inspection of hearing aid revealed road crew member broken off from road crew member wire . Mr. Christie was informed that he is now out of warranty, and there would be a charge to replace the road crew member. Mr. Christie opted not to have any services today. Plan: - Warranty 12/13/2018. - Replace road crew member or send hearing aid to harness repairer for repair with a 1 year warranty. - Return PRN. Rosamaria [place], B.S. Audiology Business English Instructor documented in this encounter Plan of Treatment Care Team Description Date Type Specialty Nikki Weber, PHD [address] [facility] BS[address] [place] [address] [phone] Audio Sound Suite 08/01/2019 Ancillary Visit Audiology Mehreen Schwab MD [address] [facility] [id number] [place], [place] [address] 08/26/2019 Office Visit Ophthalmology Freya Tomas MD [address] [place] [address]. [place] [phone] 08/27/2019 Telemedicine Psychiatry Visit Health Maintenance Due [...] Implanted Type Area Manufactur er 04/26/2017 / [id number] / [id number] Dbm Putty Maxxeus 10cc Cts #2018-40 BONE Left: Spin e Community - [id number] Tissue Implanted: Qty: 1 on 11/10/2015 by Services Harrison Wise MD at [facility] 07/07/2020 1234-12 / [id number] / [id number] Cancellous Crushed, Community BONE Left: Spine [facility] Tissue Services (1 10mm) Freeze Tissue Dried 60.0 Cc #1234-12 - S0000 Services Implanted: Qty: 1 on 11/10/2015 by Harrison Wise MD at [facility] 10/16/2021 1235-12 / [id number] / [id number] Cancellous Crushed, Community BONE N/A: [facility] Tissue Services (1 10mm) Freeze Tissue Dried 90.0 Cc #1235-12 - Services [id number] Implanted: Qty: 1 on 01/19/2017 by Harrison Wise MD at [facility] 09/22/20182017-40 / [id number] / [id number] Dbm Putty Maxxeus 10cc Cts #2017-40 BONE N/A: [facility] - [id number] Tissue Implanted: Qty: 1 on 01/19/2017 by Services Harrison Wise MD at [facility] 07/23/2018414874 / / Duraseal, Covidien Improved Dural Duraseal N/A: Spine Tyco/Covid Sealant System 5ml #[id number] - S00 ien Implanted: Qty: 1 on 08/08/2017 by Harrison Wise MD at [facility] 01/19/2027 [id number] / 0 / [id number] Yareli 4.75 Ccm Ns Curved 70mm Solara YARELI N/A: Back Medtronic Medtronic #[id number] - S0 Implanted: Qty: 2 on 01/19/2017 by Harrison Wise MD at [facility] 11/09/2025 [id number] / 0000 / [id number] Screw Solera 6.5x30mm Medtronic SCREW Left: Spine Medtronic #[id number] - S0000 Implanted: Qty: 2 on 11/10/2015 by Harrison Wise MD at [facility] 11/09/2025 [id number] / 0000 / [id number] Screw, Medtronic Solara 6.5x45 SCREW Left: Spine Medtronic #[id number] - S0000 Implanted: Qty: 2 on 11/10/2015 by Harrison Wise MD at [facility] 01/19/2027 [id number] / 0 / [id number] Screw Solera 8.5x30mm Mas Medtronic SCREW N/A: Back Medtronic #[id number] Implanted: Qty: 2 on 01/19/2017 by Harrison Wise MD at [facility] 01/19/2027 [id number] / 0 / [id number] Screw, Medtronic Solara 6.5x45 SCREW N/A: Back Medtronic #[id number] - S0 Implanted: Qty: 2 on 01/19/2017 by Harrison Wise MD at [facility] 08/09/2027 [id number] / 00 / 00 Screw, Medtronic # Set Break Off Ti SCREW N/A: Spine Medtronic #[id number] - S00 Implanted: Qty: 3 on 08/08/2017 by Harrison Wise MD at [facility] Description:No charge for any implant per [employer] 11/09/2025 [id number] / 000 / [id number] Screw Solera 4.75 Ti Ns Break Off Left: Spine Med tronic Medtronic #[id number] - S000 Implanted: Qty: 4 on 11/10/2015 by Harrison Wise MD at [facility] 11/09/2025 [id number] / 0000 / [id number] Yareli 4.75 Ccm Ns Curved 45mm Solera Left: Spine Me dtronic Medtronic #[id number] - S0000 Implanted: Qty: 2 on 11/10/2015 by Harrison Wise MD at [facility] 01/19/2027 [id number] / 0 / [id number] Screw Solera 4.75 Ti Ns Break Off N/A: Back Med tronic Medtronic #[id number] - S0 Implanted: Qty: 6 on 01/19/2017 by Harrison Wise MD at [facility] 01/19/2027 [id number] / 0 / [id number] Screw Solera 7.5x45mm Medtronic N/A: Back Medtr onic #[id number] - S0 Implanted: Qty: 2 on 01/19/2017 by Harrison Wise MD at [facility] documented as of this encounter Results Not on filedocumented in this encounter Visit Diagnoses Diagnosis Bilateral sensorineural hearing loss - Primary Sensorineural hearing loss, bilateral documented in this encounter Insurance Type Payer Benefit Subscriber ID Effective Phone Address Plan / Dates Group Medicaid [employer] [place] [employer] xxxxxxxxx 2015-P P O MARGI [facility] [address] [place] [address] Retail documented as of this encounter Advance Directives Relationship Healthcare Agent Relationship Communicat ion Name Emergency Contact Primary healthcare agent [phone] (M obile) Luanne Carson Child First alternate healthcare agent Rico Christie
--- OUTSIDE RECORDS SUMMARY | 2019-11-04 15:56 | XMS REPORT | Summary of Care ---
Author Author [facility] - Health Organization [facility] - Health Address Unknown Phone Unavailable Care Team Providers Care Trestle Mainternance Laborer Name Role Phone Gabriella Coyle MD 12 Unavailable Pcp, Patient Does Not Have A PCP [phone] Reason for Visit * Reason Comments Hearing Aid Check Encounter Details Care Team Description Date Type Department Nikki Weber, PHD [address] [facility] [id number] [place] [address] [facility] Bilateral sensorineural hearing loss (Pr imary Dx) 07/29/2019 Ancillary Visit [facility] fo r Audiology & Speech Path-[address] [place] [phone] Allergies Comments Active Allergy Reactions Severity Noted [...] Added automatically from request for buzz nguyen [id number] Wound dehiscence 08/23/2017 Hardware complicating wound infection 08/18/2017 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 09/21/2016 Overview: [facility] [id number] Chronic diastolic congestive heart failure 7 Narcotic [...] of Harvey crum by Vanita Clarke, Audiology Nutrition Instructor. I have read and reviewed the repo rt, and agree as written. Gurpreet Walls, JUAN-A [place] Board [employer]iology (FELIPA) Certified Personnel Director * Rosamaria Shepherd - 07/29/2019 9:00 AM CDT AUDIOLOGY HEARING AID CHECK Subjective: Harvey Christie visited today as a walk in hearing aid check. 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 Objective/Assessment: The following services were completed. Visual inspection of hearing aid revealed optimization engineer broken off from optimization engineer wire . Mr. Christie was informed that he is now out of warranty, and there would be a charge to replace the optimization engineer. Mr. Christie opted not to have any services today. Plan: - Warranty 12/13/2018. - Replace optimization engineer or send hearing aid to skiver welt end for repair with a 1 year warranty. - Return PRN. Rosamaria [place], B.S. Audiology Nutrition Instructor documented in this encounter Plan of Treatment Care Team Description Date Type Specialty Nikki Weber, PHD [address] [facility] MY[address] [place] [address] [phone] Audio Sound Suite 08/01/2019 Ancillary Visit Audiology Mehreen Schwab MD [address] [facility] [id number] [place], [place] [address] 08/26/2019 Office Visit Ophthalmology Freya Tomas MD [address] [place] [address]. [place] [phone] 08/27/2019 Telemedicine Psychiatry Visit Health Maintenance Due [...] Implanted Type Area Manufactur er 04/26/2017 / [id number] / [id number] Dbm Putty Maxxeus 10cc Cts #2018-40 BONE Left: Spin e Community - [id number] Tissue Implanted: Qty: 1 on 11/10/2015 by Services Harrison Wise MD at [facility] 07/07/2020 1234-12 / [id number] / [id number] Cancellous Crushed, Community BONE Left: Spine [facility] Tissue Services (1 10mm) Freeze Tissue Dried 60.0 Cc #1234-12 - S0000 Services Implanted: Qty: 1 on 11/10/2015 by Harrison Wise MD at [facility] 10/16/2021 1235-12 / [id number] / [id number] Cancellous Crushed, Community BONE N/A: [facility] Tissue Services (1 10mm) Freeze Tissue Dried 90.0 Cc #1235-12 - Services [id number] Implanted: Qty: 1 on 01/19/2017 by Harrison Wise MD at [facility] 09/22/20182017-40 / [id number] / [id number] Dbm Putty Maxxeus 10cc Cts #2017-40 BONE N/A: [facility] - [id number] Tissue Implanted: Qty: 1 on 01/19/2017 by Services Harrison Wise MD at [facility] 07/23/2018766066 / / Duraseal, Covidien Improved Dural Duraseal N/A: Spine Tyco/Covid Sealant System 5ml #535049 - S00 ien Implanted: Qty: 1 on 08/08/2017 by Harrison Wise MD at [facility] 01/19/2027 [id number] / 0 / [id number] Yareli 4.75 Ccm Ns Curved 70mm Solara YARELI N/A: Back Medtronic Medtronic #[id number] - S0 Implanted: Qty: 2 on 01/19/2017 by Harrison Wise MD at [facility] 11/09/2025 [id number] / 0000 / [id number] Screw Solera 6.5x30mm Medtronic SCREW Left: Spine Medtronic #[id number] - S0000 Implanted: Qty: 2 on 11/10/2015 by Harrison Wise MD at [facility] 11/09/2025 [id number] / 0000 / [id number] Screw, Medtronic Solara 6.5x45 SCREW Left: Spine Medtronic #[id number] - S0000 Implanted: Qty: 2 on 11/10/2015 by Harrison Wise MD at [facility] 01/19/2027 [id number] / 0 / [id number] Screw Solera 8.5x30mm Mas Medtronic SCREW N/A: Back Medtronic #[id number] Implanted: Qty: 2 on 01/19/2017 by Harrison Wise MD at [facility] 01/19/2027 [id number] / 0 / [id number] Screw, Medtronic Solara 6.5x45 SCREW N/A: Back Medtronic #[id number] - S0 Implanted: Qty: 2 on 01/19/2017 by Harrison Wise MD at [facility] 08/09/2027 [id number] / 00 / 00 Screw, Medtronic # Set Break Off Ti SCREW N/A: Spine Medtronic #[id number] - S00 Implanted: Qty: 3 on 08/08/2017 by Harrison Wise MD at [facility] Description:No charge for any implant per [employer] 11/09/2025 [id number] / 000 / [id number] Screw Solera 4.75 Ti Ns Break Off Left: Spine Med tronic Medtronic #[id number] - S000 Implanted: Qty: 4 on 11/10/2015 by Harrison Wise MD at [facility] 11/09/2025 [id number] / 0000 / [id number] Yareli 4.75 Ccm Ns Curved 45mm Solera Left: Spine Me dtronic Medtronic #[id number] - S0000 Implanted: Qty: 2 on 11/10/2015 by Harrison Wise MD at [facility] 01/19/2027 [id number] / 0 / [id number] Screw Solera 4.75 Ti Ns Break Off N/A: Back Med tronic Medtronic #[id number] - S0 Implanted: Qty: 6 on 01/19/2017 by Harrison Wise MD at [facility] 01/19/2027 [id number] / 0 / [id number] Screw Solera 7.5x45mm Medtronic N/A: Back Medtr onic #[id number] - S0 Implanted: Qty: 2 on 01/19/2017 by Harrison Wise MD at [facility] documented as of this encounter Results Not on filedocumented in this encounter Visit Diagnoses Diagnosis Bilateral sensorineural hearing loss - Primary Sensorineural hearing loss, bilateral documented in this encounter Insurance Type Payer Benefit Subscriber ID Effective Phone Address Plan / Dates Group Medicaid [employer] [place] [employer] xxxxxxxxx 2015-P P O MARGI [facility] [address] [place] [address] Retail documented as of this encounter Advance Directives Relationship Healthcare Agent Relationship Communicat ion Name Emergency Contact Primary healthcare agent [phone] (M obile) Luanne Carson Child First alternate healthcare agent Rico Christie
--- OUTSIDE RECORDS SUMMARY | 2019-11-04 15:56 | XMS REPORT | Summary of Care ---
Author Author [facility] - Health Organization [facility] - Health Address Unknown Phone Unavailable Care Team Providers Care Solar Energy Installation Manager Name Role Phone Gabriella Coyle MD 12 Unavailable Pcp, Patient Does Not Have A PCP [phone] Reason for Visit * Reason Comments Hearing Aid Check Encounter Details Care Team Description Date Type Department Nikki Weber, PHD [address] [facility] [id number] [place] [address] Screening/[facility] Audio Bilateral sensorineural hearing loss (Pr imary Dx) 07/29/2019 Ancillary Visit [facility] Cntr fo r Audiology & Speech Path-[address] [place] [phone] Allergies Comments Active Allergy Reactions Severity Noted Date Penicillins Rash 11/09/2015 documented as of this encounter (statuses as of 08/05/2019) Medications End Date Status Medication Sig Dispensed Refills Start Date Active venlafaxine XR 150 mg 24 Take 1 30 capsule 1 0 hr capsuleIndications: capsule by 0 KELSIE (generalized anxiety mouth daily disorder) with breakfast. documented as of this encounter (statuses as of 08/05/2019) Active Problems Problem Noted Date Trauma 06/19/2019 Concussion with loss of consciousness 06/19/[address] 06/19/2019 Apnea for greater than 15 seconds 06/19/2019 Infection 09/28/2017 Chronic midline low back pain without sciatica 09/27 Overview: Added automatically from request for buzz nguyen [id number] Wound dehiscence 08/23/2017 Hardware complicating wound infection 08/18/2017 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 09/21/2016 Overview: [id number] Chronic diastolic congestive heart failure 7 Narcotic [...] as of this encounter (statuses as of 08/05/2019) Resolved Problems Problem Noted Date Resolved Date [...] as of this encounter (statuses as of 08/05/2019) Immunizations Name Administration Dates Next Due DTAP [...] filedocumented in this encounter Progress Notes * Rosamaria Shepherd - 07/29/2019 9:00 AM CDT AUDIOLOGY HEARING AID CHECK Subjective: Harvey Christie walked-in again this afternoon stating he amador ged his mind and would like to have his hearing aid fixed. Discussed sending in for repair with supervisor tan room with a 1-year warranty. Mr. Christie opted to have shipper receiver fixed in-office today so he can have it for court tomorrow. Mr. Christie also wants to be fit with a hearing aid on his right ear because he often has d ifficulty hearing and sometimes feels off-balance using the one hearing aid. AMORTIZATION CLERK/MODEL: [employer] [id number] SERIAL # Left Ear: [id number] Objective/Assessment: The following services were completed. Visual inspection o f hearing aid revealed broken shipper receiver (as described previously) and wax obscuri ng microphone openings. Hearing aid was cleaned, and size 1 standard shipper receiver was replaced with size 1 p ower shipper receiver 2017 audio showed thresholds in moderately severe to severe ra nge (at the border of standard shipper receiver power), and Mr. Christie has noted previo usly that he feels his hearing has gotten worse. Listening check confirmed good sound. Otoscopic exam of left ear revealed some cerumen pushed back near the tympanic m embrane. Mr. Christie was encouraged not to clean his ears with Qtips or "paper". Hearing aid was connected to software. Datalogging showed an average of 18 hours of use per day. Hearing aid programming was adjusted to account for power recei marlin. Feedback management was rerun. Mr. Christie expressed satisfaction with the sound and denied need for further ch anges. Discussed need for new audio (most recent on 03/07/2018) prior to a hearing aid evaluation appointment for new hearing aids. Plan: - Return PRN re: hearing aid. - Schedule audiological evaluation. [facility] Vanita Clarke Audiology Kindergarten Tutor I was available in clinic during the evaluation of Harvey Christie this sec ond time by Vanita Clarke, Audiology Kindergarten Tutor. I have read and reviewed t he report, and agree as written. Gurpreet Walls, [facility] [employer] (FELIPA) Certified Shipping Clerk * Curly Price AUD - 07/29/2019 9:00 AM CDT I was available in clinic during the attempted evaluation of Harvey crum by Vanita Clarke, Audiology Kindergarten Tutor. I have read and reviewed the repo rt, and agree as written. Gurpreet Walls, [facility] [employer] (FELIPA) Certified Shipping Clerk * Rosamaria Shepherd - 07/29/2019 9:00 AM CDT AUDIOLOGY HEARING AID CHECK Subjective: Harvey Christie visited today as a walk in hearing aid check. 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 Objective/Assessment: The following services were completed. Visual inspection of hearing aid revealed shipper receiver broken off from shipper receiver wire . Mr. Christie was informed that he is now out of warranty, and there would be a charge to replace the shipper receiver. Mr. Christie opted not to have any services today. Plan: - Warranty 12/13/2018. - Replace shipper receiver or send hearing aid to supervisor tan room for repair with a 1 year warranty. - Return PRN. Vanita Clarke Audiology Kindergarten Tutor documented in this encounter Plan of Treatment Care Team Description Date Type Specialty Mehreen Schwab MD [address] [facility] [id number] [place] [address] 08/26/2019 Office Visit Ophthalmology Freya Tomas MD [address] [place] [address]. [place] [address] 08/27/2019 Telemedicine Psychiatry Visit Andree Lira, AUD [address] [place], [place] [address] 10/07/2019 Ancillary Visit Audiology Health Maintenance Due Date [...] Implanted Type Area Manufactur er 04/26/20172017-40 / [id number] / [id number] Dbm Putty Maxxeus 10cc Cts #2018-40 BONE Left: Spin e Community - [id number] Tissue Implanted: Qty: 1 on 11/10/2015 by Services Harrison Wise MD at [facility] 07/07/2020 1234-12 / [id number] / [id number] Cancellous Crushed, Community BONE Left: Spine [facility] (1 10mm) Freeze Tissue Dried 60.0 Cc #1234-12 - [id number] Services Implanted: Qty: 1 on 11/10/2015 by Harrison Wise MD at [facility] 10/16/2021 1235-12 / [id number] / [id number] Cancellous Crushed, [facility] BONE N/A: [facility] Tissue Services (1 10mm) Freeze Tissue Dried 90.0 Cc #1235-12 - Services [id number] Implanted: Qty: 1 on 01/19/2017 by Harrison Wise MD at [facility] 09/22/20182017-40 / [id number] / [id number] Dbm Putty Maxxeus 10cc Cts #2017- BONE N/A: [facility] - [id number] Tissue Implanted: Qty: 1 on 01/19/2017 by Services Harrison Wise MD at [facility] 07/23/2018715029 / 00 / Duraseal, Covidien Improved Dural Duraseal N/A: Spine Tyco/Covid Sealant System 5ml #[id number] - S00 ien Implanted: Qty: 1 on 08/08/2017 by Harrison Wise MD at [facility] 01/19/2027 [id number] / 0 / [id number] Yareli 4.75 Ccm Ns Curved 70mm Solara YARELI N/A: Back Medtronic Medtronic #[id number] - S0 Implanted: Qty: 2 on 01/19/2017 by Harrison Wise MD at [facility] 11/09/2025 [id number] / 0000 / [id number] Screw Solera 6.5x30mm Medtronic SCREW Left: Spine Medtronic #[id number] - [id number] Implanted: Qty: 2 on 11/10/2015 by Harrison Wise MD at [facility] 11/09/2025 [id number] / 0000 / [id number] Screw, Medtronic Solara 6.5x45 SCREW Left: Spine Medtronic #[id number] - [id number] Implanted: Qty: 2 on 11/10/2015 by Harrison Wise MD at [facility] 01/19/2027 [id number] / 0 / [id number] Screw Solera 8.5x30mm Mas Medtronic SCREW N/A: Back Medtronic #[id number] Implanted: Qty: 2 on 01/19/2017 by Harrison Wise MD at [facility] 01/19/2027 [id number] / 0 / [id number] Screw, Medtronic Solara 6.5x45 SCREW N/A: Back Medtronic #[id number] - S0 Implanted: Qty: 2 on 01/19/2017 by Harrison Wise MD at [facility] 08/09/2027 [id number] / 00 / 00 Screw, Medtronic # Set Break Off Ti SCREW N/A: Spine Medtronic #[id number] - S00 Implanted: Qty: 3 on 08/08/2017 by Harrison Wise MD at [facility] Description:No charge for any implant per Cordell Bellteonic Rep 11/09/2025 [id number] / 000 / [id number] Screw Solera 4.75 Ti Ns Break Off Left: Spine Med tronic Medtronic #[id number] - S000 Implanted: Qty: 4 on 11/10/2015 by Harrison Wise MD at [facility] 11/09/2025 [id number] / 0000 / [id number] Yareli 4.75 Ccm Ns Curved 45mm Solera Left: Spine Me dtronic Medtronic #[id number] - S0000 Implanted: Qty: 2 on 11/10/2015 by Harrison Wise MD at [facility] 01/19/2027 [id number] / 0 / [id number] Screw Solera 4.75 Ti Ns Break Off N/A: Back Med tronic Medtronic #[id number] - S0 Implanted: Qty: 6 on 01/19/2017 by Harrison Wise MD at [facility] 01/19/2027 [id number] / 0 / [id number] Screw Solera 7.5x45mm Medtronic N/A: Back Medtr onic #[id number] - S0 Implanted: Qty: 2 on 01/19/2017 by Harrison Wise MD at [facility] documented as of this encounter Results Not on filedocumented in this encounter Visit Diagnoses Diagnosis Bilateral sensorineural hearing loss - Primary Sensorineural hearing loss, bilateral documented in this encounter Insurance Type Payer Benefit Subscriber ID Effective Phone Address Plan / Dates Group Medicaid [employer] [place] [employer] xxxxxxxxx 2015-P [place] [facility] [place] [facility] [address] [place] [address] Retail documented as of this encounter Advance Directives Relationship Healthcare Agent Relationship Communicat ion Name Emergency Contact Primary healthcare agent [phone] (M obile) Luanne Carson Child First alternate healthcare agent Rico Christie
--- OUTSIDE RECORDS SUMMARY | 2019-11-04 15:56 | XMS REPORT | Summary of Care ---
Author Author [facility] - Health Organization [facility] - Health Address Unknown Phone Unavailable Care Team Providers Care Video Manager Name Role Phone Gabriella Coyle MD 12 Unavailable Pcp, Patient Does Not Have A PCP [phone] Reason for Visit * Reason Comments Hearing Problem Encounter Details Care Team Description Date Type Department Nikki Weber, PHD [address] [facility] [id number] [place], [place] [id number] Oma Coe AUD [address] [place] [phone] Sensorineural hearing loss (SNHL) of bot h ears (Primary Dx) 08/01/2019 Ancillary Visit [facility] Cntr fo r Audiology & Speech Path-[address] [place] [address] Allergies Comments Active Allergy Reactions Severity Noted Date Penicillins Rash 11/09/2015 documented as of this encounter (statuses as of 08/01/2019) Medications End Date Status Medication Sig Dispensed Refills Start Date Active venlafaxine XR 150 mg 24 Take 1 30 capsule 1 0 hr capsuleIndications: capsule by 0 KELSIE (generalized anxiety mouth daily disorder) with breakfast. documented as of this encounter (statuses as of 08/01/2019) Active Problems Problem Noted Date Trauma 06/19/2019 Concussion with loss of consciousness 06/19/[address] 06/19/2019 Apnea for greater than 15 seconds 06/19/2019 Infection 09/28/2017 Chronic midline low back pain without sciatica 09/27 Overview: Added automatically from request for gerber wendy [id number] Wound dehiscence 08/23/2017 Hardware complicating wound infection 08/18/2017 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 09/21/2016 Overview: Added automatically from request for buzz nguyen [id number] Chronic diastolic congestive heart failure 7 Narcotic abuse 03/14/2016 Overview: No further narcotic prescriptions [facility]. Pt informed 03/13/16.- Angelica Valero [...] as of this encounter (statuses as of 08/01/2019) Resolved Problems Problem Noted Date Resolved Date [...] as of this encounter (statuses as of 08/01/2019) Immunizations Name Administration Dates Next Due DTAP [...] filedocumented in this encounter Progress Notes * Oma Coe AUD - 08/01/2019 10:30 AM CDT Audiogram/hearing evaluation will be scanned and will be available in Chart Revi ew under the "Procedures" tab. Gurpreet Rodriguez, [facility]-A Board Certified Clinical Scrap Stripper Hand documented in this encounter Plan of Treatment Care Team Description Date Type Specialty Mehreen Schwab MD [address] [place] [address] [id number] [place] [address] [phone] 08/26/2019 Office Visit Ophthalmology Freya Tomas MD [address] [place] [address]. [place] [phone] 08/27/2019 Telemedicine Psychiatry Visit Andree Lira AUD [address] [place] [address] [phone] 10/07/2019 Ancillary Visit Audiology Health Maintenance Due [...] Implanted Type Area Manufactur er 04/26/2017 / [id number] / [id number] Dbm Putty Maxxeus 10cc Cts # BONE Left: Spin e [facility] - [id number] Tissue Implanted: Qty: 1 on 11/10/2015 by Services Harrison Wise MD at [facility] 07/07/2020 1234-12 / [id number] / [id number] Cancellous Crushed, Community BONE Left: Spine [facility] Tissue Services (1 10mm) Freeze Tissue Dried 60.0 Cc #1234-12 - S0000 Services Implanted: Qty: 1 on 11/10/2015 by Harrison Wise MD at [facility] 10/16/2021 1235-12 / [id number] / [id number] Cancellous Crushed, Community BONE N/A: Back [facility] Tissue Services (1 10mm) Freeze Tissue Dried 90.0 Cc #1235-12 - Services [id number] Implanted: Qty: 1 on 01/19/2017 by Harrison Wise MD at [facility] 09/22/2018 / [id number] / [id number] Dbm Putty Maxxeus 10cc Cts # BONE N/A: Back [facility] - [id number] Tissue Implanted: Qty: 1 on 01/19/2017 by Services Harrison Wise MD at [facility] 07/23/2018 [id number] / Duraseal, Covidien Improved Dural Duraseal N/A: Spine Tyco/Covid Sealant System 5ml #[id number] - S00 ien Implanted: Qty: 1 on 08/08/2017 by Harrison Wise MD at [facility] 01/19/2027 [id number] / 0 / [id number] Yareli 4.75 Ccm Ns Curved 70mm Solara YARELI N/A: Back Medtronic Medtronic #[id number] - S0 Implanted: Qty: 2 on 01/19/2017 by Harrison Wise MD at [facility] 11/09/2025 [id number] / 0000 / [id number] Screw Solera 6.5x30mm Medtronic SCREW Left: Spine Medtronic #[id number] - S0000 Implanted: Qty: 2 on 11/10/2015 by Harrison Wise MD at [facility] 11/09/2025 [id number] / 0000 / [id number] Screw, Medtronic Solara 6.5x45 SCREW Left: Spine Medtronic #[id number] - S0000 Implanted: Qty: 2 on 11/10/2015 by Harrison Wise MD at [facility] 01/19/2027 [id number] / 0 / [id number] Screw Solera 8.5x30mm Mas Medtronic SCREW N/A: Back Medtronic #[id number] Implanted: Qty: 2 on 01/19/2017 by Harrison Wise MD at [facility] 01/19/2027 [id number] / 0 / [id number] Screw, Medtronic Solara 6.5x45 SCREW N/A: Back Medtronic #[id number] - S0 Implanted: Qty: 2 on 01/19/2017 by Harrison Wise MD at [facility] 08/09/2027 [id number] / 00 Screw, Medtronic # Set Break Off Ti SCREW N/A: Spine Medtronic #[id number] - S00 Implanted: Qty: 3 on 08/08/2017 by Harrison Wise MD at [facility] Description:No charge for any implant per Cordell Bellteonic Rep 11/09/2025 [id number] / 000 / [id number] Screw Solera 4.75 Ti Ns Break Off Left: Spine Med tronic Medtronic #[id number] - S000 Implanted: Qty: 4 on 11/10/2015 by Harrison Wise MD at [facility] 11/09/2025 [id number] / 0000 / [id number] Yareli 4.75 Ccm Ns Curved 45mm Solera Left: Spine Me dtronic Medtronic #[id number] - S0000 Implanted: Qty: 2 on 11/10/2015 by Harrison Wise MD at [facility] 01/19/2027 [id number] / 0 / [id number] Screw Solera 4.75 Ti Ns Break Off N/A: Back Med tronic Medtronic #[id number] - S0 Implanted: Qty: 6 on 01/19/2017 by Harrison Wise MD at [facility] 01/19/2027 [id number] / 0 / [id number] Screw Solera 7.5x45mm Medtronic N/A: Back Medtr onic #[id number] - S0 Implanted: Qty: 2 on 01/19/2017 by Harrison Wise MD at [facility] documented as of this encounter Results Not on filedocumented in this encounter Visit Diagnoses Diagnosis Sensorineural hearing loss (SNHL) of jez th ears - Primary documented in this encounter Insurance Type Payer Benefit Subscriber ID Effective Phone Address Plan / Dates Group Medicaid [facility] x[facility] 2015-P P O JEZ X OF [facility] [address] [place] [address] (Home) [place] [address] documented as of this encounter Advance Directives Relationship Healthcare Agent Relationship Communicat ion Name Emergency Contact Primary healthcare agent [phone] (M obile) Luanne Carson [facility] healthcare agent Rico Christie
--- OUTSIDE RECORDS SUMMARY | 2019-11-04 15:56 | XMS REPORT | Summary of Care ---
Author Author [facility] - Health Organization [facility] - Health Address Unknown Phone Unavailable Care Team Providers Care Equipment Lead Name Role Phone Gabriella Coyle MD 12 Unavailable Pcp, Patient Does Not Have A PCP [phone] Reason for Visit * Reason Comments Hearing Aid Check Encounter Details Care Team Description Date Type Department Nikki Weber, PHD [address] [facility] [id number] [place], [place] [id number] Nkechi Dutton, AUD [address] [place] [phone] Sensorineural hearing loss (SNHL) of bot h ears (Primary Dx); Hearing aid adjustment 08/05/2019 Ancillary Visit [facility] fo r Audiology & Speech Path-[address] 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 Pt informed 03/13/16.- Angelica [...] filedocumented in this encounter Progress Notes * Nkechi Dutton, AUD - 08/05/2019 11:00 AM CDT AUDIOLOGY HEARING AID CHECK Subjective: Harvey Christie visits today for a hearing aid (MISHRA) check. He reports the battery is only lasting 5 minutes; however the current battery has l asted 10 minutes. Objective/Assessment: The following services were completed. Clinician listened to hearing aid for 10+ minutes and hearing aid was functional . Patient left and came back in the afternoon and he reported hearing aid was not functional. Hearing aid battery was . Replaced with a battery from clinic an d hearing aid was functional. Advised patient that if this battery lasts, then his batteries are bad. If this battery does not last, then it is his hearing aid that will need to get sent in for repair out of warranty and will cost $350. Pt is aware. Plan: - Return PRN for a HACK. - He is scheduled for a HAE on 10/07/19. - Mr. Christie verbalizes an understanding of the plan of care for this visit. Gurpreet Escudero, [facility] Board Certified in Audiology Compass Operator documented in this encounter Plan of Treatment Care Team Description Date Type Specialty Mehreen Schwab MD [address] [place] [address] [id number] [place] [address] [phone] 08/26/2019 Office Visit Ophthalmology Freya Tomas MD [address] [place] [address]. [place] [phone] 08/27/2019 Telemedicine Psychiatry Visit Soraya AndreeCRISTIAN [address] [place], [place] [address] 10/07/2019 Ancillary Visit Audiology Health Maintenance Due [...] Implanted Type Area Manufactur er 04/26/20172017-40 / [id number] / [id number] Dbm Putty Maxxeus 10cc Cts #2018-40 BONE Left: Spin e Community - [id number] Tissue Implanted: Qty: 1 on 11/10/2015 by Services Harrison Wise MD at [facility] 07/07/2020 1234-12 / [id number] / [id number] Cancellous Crushed, Community BONE Left: Spine [facility] Tissue Services (1 10mm) Freeze Tissue Dried 60.0 Cc #1234-12 - S0000 Services Implanted: Qty: 1 on 11/10/2015 by Harrison Wise MD at [facility] 10/16/2021 1235-12 / [id number] / [id number] Cancellous Crushed, Community BONE N/A: [facility] Tissue Services (1 10mm) Freeze Tissue Dried 90.0 Cc #1235-12 - Services [id number] Implanted: Qty: 1 on 01/19/2017 by Harrison Wise MD at [facility] 09/22/2018 / [id number] / [id number] Dbm Putty Maxxeus 10cc Cts #2017- BONE N/A: [facility] - [id number] Tissue Implanted: Qty: 1 on 01/19/2017 by Services Harrison Wise MD at [facility] 07/23/2018 [id number] / 00 / Duraseal, Covidien Improved Dural Duraseal N/A: Spine Tyco/Covid Sealant System 5ml #[id number] - S00 ien Implanted: Qty: 1 on 08/08/2017 by Harrison Wise MD at [facility] 01/19/2027 [id number] / 0 / [id number] Yareli 4.75 Ccm Ns Curved 70mm Solara YARELI N/A: Back Medtronic Medtronic #[id number] - S0 Implanted: Qty: 2 on 01/19/2017 by Harrison Wise MD at [facility] 11/09/2025 [id number] / 0000 / [id number] Screw Solera 6.5x30mm Medtronic SCREW Left: Spine Medtronic #[id number] - [id number] Implanted: Qty: 2 on 11/10/2015 by Harrison Wise MD at [facility] 11/09/2025 [id number] / 0000 / [id number] Screw, Medtronic Solara 6.5x45 SCREW Left: Spine Medtronic #[id number] - [id number] Implanted: Qty: 2 on 11/10/2015 by Harrison Wise MD at [facility] 01/19/2027 [id number] / 0 / [id number] Screw Solera 8.5x30mm Mas Medtronic SCREW N/A: Back Medtronic #[id number] Implanted: Qty: 2 on 01/19/2017 by Harrison Wise MD at [facility] 01/19/2027 [id number] / 0 / [id number] Screw, Medtronic Solara 6.5x45 SCREW N/A: Back Medtronic #[id number] - S0 Implanted: Qty: 2 on 01/19/2017 by Harrison Wise MD at [facility] 08/09/2027 [id number] / 00 / 00 Screw, Medtronic # Set Break Off Ti SCREW N/A: Spine Medtronic #[id number] - [id number] Implanted: Qty: 3 on 08/08/2017 by Harrison Wise MD at [facility] Description:No charge for any implant per Cordell Bellteonic Rep 11/09/2025 [id number] / 000 / [id number] Screw Solera 4.75 Ti Ns Break Off Left: Spine Med tronic Medtronic #[id number] - S000 Implanted: Qty: 4 on 11/10/2015 by Harrison Wise MD at [facility] 11/09/2025 [id number] / 0000 / [id number] Yareli 4.75 Ccm Ns Curved 45mm Solera Left: Spine Me dtronic Medtronic #[id number] - [id number] Implanted: Qty: 2 on 11/10/2015 by Harrison Wise MD at [facility] 01/19/2027 [id number] / 0 / [id number] Screw Solera 4.75 Ti Ns Break Off N/A: Back Med tronic Medtronic #[id number] - S0 Implanted: Qty: 6 on 01/19/2017 by Harrison Wise MD at [facility] 01/19/2027 [id number] / 0 / [id number] Screw Solera 7.5x45mm Medtronic N/A: Back Medtr onic #[id number] - S0 Implanted: Qty: 2 on 01/19/2017 by Harrison Wise MD at [facility] documented as of this encounter Results Not on filedocumented in this encounter Visit Diagnoses Diagnosis Sensorineural hearing loss (SNHL) of jez th ears - Primary Hearing aid adjustment Fitting and adjustment of hearing aid documented in this encounter Insurance Type Payer Benefit Subscriber ID Effective Phone Address Plan / Dates Group Medicaid [employer] [place] [employer] xxxxxxxxx 2015-P P O JEZ X OF [facility] [address] [place] [address] Retail documented as of this encounter Advance Directives Relationship Healthcare Agent Relationship Communicat ion Name Emergency Contact Primary healthcare agent [phone] (M obile) Luanne Carson Child First alternate healthcare agent Rico Christie
--- OUTSIDE RECORDS SUMMARY | 2019-11-04 15:56 | XMS REPORT | Clinical Summary ---
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 09/21/2016 Overview: Added automatically from request for buzz nguyen [id number] Chronic diastolic congestive heart failure 7 Narcotic [...] Encounters Care Team Description Date Type Specialty 08/27/2019 Travel Nikki Weber, PHD Nkechi Dutton AUD Sensorineural hearing loss (SNHL) of bot h ears (Primary Dx); Hearing aid adjustment 08/05/2019 Ancillary Visit Audiology Nikki Weber, Oma Person AUD Sensorineural hearing loss (SNHL) of bot h ears (Primary Dx) 08/01/2019 Ancillary Visit Audiology Doctor Unassigned, Sigourney 08/01/2019 Orders Only Nikki Weber, PHD Kaela/Bon, [facility] Audio Bilateral sensorineural hearing loss (Pr imary Dx) 07/29/2019 Ancillary Visit Audiology Prerna Thompson, PT DISCHARGE 07/16/2019 Clinic Physical Therapy Assessment Tony Yost MD Trauma 06/19/2019 Emergency Surgery Raj Christensen MD 05/29/2019 Hospital Radiology Encounter Raj Christensen MD Lumbar radiculopathy (Primary Dx); Cervical stenosis of spinal canal 05/29/2019 Office Visit Orthopedic Surgery Mallory Sotomayor MD Chronic low back pain, unspecified back pain laterality, unspecified whether sciatica present (Primary Dx) 05/28/2019 Abstract Orthopedic Surgery from Last 3 Months Immunizations Name Administration [...] history available. Date Recorded COVID-19 Exposure Response 08/27/2019 7:40 AM CDT In the last month, have you been in contact with No / Unsure someone who was confirmed or suspected to have Coronavirus / COVID-19? Last Filed Vital Signs Reading Time Taken Comments Vital Sign 140/84 08/27/2019 7:50 AM CDT Blood Pressure 83 08/27/2019 7:50 AM CDT Pulse 37 C (98.6 F) 06/19/2019 8:20 PM CDT Temperature 18 08/27/2019 7:50 AM CDT Respiratory Rate 98% 06/19/2019 11:00 PM CDT Oxygen Saturation - - Inhaled Oxygen Concentration 101.6 kg (224 lb) 08/27/2019 7:50 AM CDT Weight 170.2 cm (5' 7") 08/27/2019 7:50 AM CDT Height 35.08 08/27/2019 7:50 AM CDT Body Mass Index Plan of Treatment Care Team Description Date Type Specialty Andree Lira, AUD [address] [place] [address] [phone] 10/07/2019 Ancillary Visit Audiology Health Maintenance Due Date Last Done Comments HEPATITIS C (HCV) SCREEN 1960 Zoster Recombinant 08/26/2011 Vaccine (SHINGRIX) (1 of 2) PNEUMOCOCCAL 0-64 YEARS 05/21/2016 03/26/2016, COMBINED SERIES (2 of 3 - PPSV23) Depression Screening 08/26/2020 08/27/2019, 08/26 COLONOSCOPY 03/06/2026 03/06/2016 DTaP,Tdap,and Td Vaccines 03/26/2026 03/26/2016, 03/26/2016 (2 - Tdap) INFLUENZA VACCINE Completed 12/24/2018, 017, 10/25/2015 Implants Device Identifier Shelf Expiration Date Model / Serial / L ot Implanted Type Area Manufactur er 04/26/2017 2018-40 / [id number] / [id number] Dbm Putty Maxxeus 10cc Cts #2018-40 BONE Left: Spin e [facility] - [id number] Tissue Implanted: Qty: 1 on 11/10/2015 by Services Harrison Wise MD at [facility] 07/07/2020 1234-12 / [id number] / [id number] Cancellous Crushed, Community BONE Left: Spine [facility] Tissue Services (1 10mm) Freeze Tissue Dried 60.0 Cc #1234-12 - S0000 Services Implanted: Qty: 1 on 11/10/2015 by aHrrison Wise MD at [facility] 10/16/2021 1235-12 / [id number] / [id number] Cancellous Crushed, Community BONE N/A: Back [facility] Tissue Services (1 10mm) Freeze Tissue Dried 90.0 Cc #1235-12 - Services [id number] Implanted: Qty: 1 on 01/19/2017 by Harrison Wise MD at [facility] 09/22/2018 2018-40 / [id number] / [id number] Dbm Putty Maxxeus 10cc Cts #2018-40 BONE N/A: [facility] [id number] Tissue Implanted: Qty: 1 on 01/19/2017 by Services Harrison Wise MD at [facility] 07/23/2018808106 / / Duraseal, Covidien Improved Dural Duraseal N/A: Spine Tyco/Covid Sealant System 5ml #[id number] - S00 ien Implanted: Qty: 1 on 08/08/2017 by Harrison Wise MD at [facility] 01/19/2027 [id number] / 0 / [id number] Yareli 4.75 Ccm Ns Curved 70mm Solara YARELI N/A: Back Medtronic Medtronic #[id number] - S0 Implanted: Qty: 2 on 01/19/2017 by Harrison Wise MD at [facility] 11/09/2025 [id number] / 0000 / [id number] Screw Solera 6.5x30mm Medtronic SCREW Left: Spine Medtronic #[id number] - S0000 Implanted: Qty: 2 on 11/10/2015 by Harrison Wise MD at [facility] 11/09/2025 [id number] / 0000 / [id number] Screw, Medtronic Solara 6.5x45 SCREW Left: Spine Medtronic #[id number] - S0000 Implanted: Qty: 2 on 11/10/2015 by Harrison Wise MD at [facility] 01/19/2027 [id number] / 0 / [id number] Screw Solera 8.5x30mm Mas Medtronic SCREW N/A: Back Medtronic #[id number] Implanted: Qty: 2 on 01/19/2017 by Harrison Wise MD at [facility] 01/19/2027 [id number] / 0 / [id number] Screw, Medtronic Solara 6.5x45 SCREW N/A: Back Medtronic #[id number] - S0 Implanted: Qty: 2 on 01/19/2017 by Harrison Wise MD at [facility] 08/09/2027 [id number] / 00 / 00 Screw, Medtronic # Set Break Off Ti SCREW N/A: Spine Medtronic #[id number] - S00 Implanted: Qty: 3 on 08/08/2017 by Harrison Wise MD at [facility] Description:No charge for any implant per Hortensia Bell Rep 11/09/2025 [id number] / 000 / [id number] Screw Solera 4.75 Ti Ns Break Off Left: Spine Med tronic Medtronic #[id number] - S000 Implanted: Qty: 4 on 11/10/2015 by Harrison Wise MD at [facility] 11/09/2025 [id number] / 0000 / [id number] Yareli 4.75 Ccm Ns Curved 45mm Solera Left: Spine Me dtronic Medtronic #[id number] - S0000 Implanted: Qty: 2 on 11/10/2015 by Harrison Wise MD at [facility] 01/19/2027 [id number] / 0 / [id number] Screw Solera 4.75 Ti Ns Break Off N/A: Back Med tronic Medtronic #[id number] - S0 Implanted: Qty: 6 on 01/19/2017 by Harrison Wise MD at [facility] 01/19/2027 [id number] / 0 / [id number] Screw Solera 7.5x45mm Medtronic N/A: Back Medtr onic #[id number] - S0 Implanted: Qty: 2 on 01/19/2017 by Harrison Wise MD at [facility] Procedures Comments Procedure Name Priority Date/Time Associated Diag nosis AUDIOGRAM Routine 08/01/2019 12:01 AM CDT MRSA / MSSA SCREEN BY STAT 06/19/2019 [...] Chronic l ow back pain, 2:58 PM DUNGEON MASTER unspecified back pain laterality, unspecified whether sciatica present PATIENT QUESTIONNAIRE Routine 05/29/2019 12:01 AM DUNGEON MASTER from Last 3 Months Results * AUDIOGRAM (08/01/2019 12:01 AM CDT) Specimen Performing Organization [facility] one Number HIM * MRSA / MSSA Screen by PCR, Nares (06/19/2019 10:01 PM CDT) MRSA Screen by Negative Negative [facility] PCR, Nares SERVICES MSSA Screen by Negative Negative [facility] PCR, Nares SERVICES MRSA/MSSA No No [facility] Positive? SERVICES Specimen Swab - NARES, BOTH SIDES Performing Organization [facility] one Number [facility] SERVICES CLIA: [id number], [address] [place] [address] [facility] * MYOGLOBIN SERUM (06/19/2019 8:54 PM CDT) Pathologist [facility] MYOGLOB S 75.4 <=121.0 ng/mL [facility] SERVICES Specimen Blood - ARM, LEFT Narrative Performed At [facility] has been reported to cause a neg ative bias, interpret results relative to [facility] patient's use of biotin. SERVICES Performing Organization Address [facility] one Number [facility] SERVICES CLIA: [id number], [address] [place] [address] [facility] * CREATINE KINASE (06/19/2019 8:54 PM CDT) Pathologist [facility] CK 68 33 - 194 U/L [facility] SERVICES Specimen Blood - ARM, LEFT Performing Organization [facility] one [facility] LABORATORY SERVICES CLIA: [id number], [address] [place] [address] [facility] * CT THORAX W CONTRAST [...] with the above report. Performing Organization Address City[facility] one Number PACS/VR/DOSE * CT LUMBAR [...] with the above report. Performing Organization Address City[facility] one Number PACS/VR/DOSE * CT CERVICAL [...] dictated CT chest for detailed evaluation of [facility] findings. LIVER: No focal hepatic lesions. Norm [...] with the above report. Performing Organization Address City/State[facility] one Number PACS/VR/DOSE * XR CHEST [...] thoracic abnormality. Preliminary Report Dictated by Resident: Carlos Marshall MD., have reviewed this study and agree with the above report. Performing Organization Address City/[facility] one Number PACS/VR/DOSE * Type and Screen - The Type and Screen expires at midnight on the 3rd day after it was drawn. A current Type and Screen is required when RBCs are requested. For all other blood products, a Type and Screen performed during the current hospitalizati... (06/19/2019 8:26 PM CDT) Pathologist [facility] ABO & RH A POSITIVE LAB Comment: Performed at [facility] Laboratory Services - [facility] Blood Bank [address] [place] [address] Toll Free: [phone] CLIA No. [id number] IAT Negative LAB Comment: Performed at [facility] Laboratory Services - [facility] Blood [place] [address] Toll Free: [phone] CLIA No. [id number] Specimen Blood - VENOUS Performing Organization Address [facility] Number D LAB * aPTT (06/19/2019 8:25 PM CDT) Pathologist [facility] APTT Patient 26 26 - 36 Seconds [facility] Y SERVICES Specimen Blood - ARM, LEFT Performing Organization Address [facility] one Number [facility] SERVICES CLIA: [id number], [address] [place] [address] [facility] * Prothrombin Time (PT) / INR (06/19/2019 8:25 PM CDT) Pathologist [facility] PROTIME PATIENT 10.9 10.1 - 12.6 Seconds [facility]AT[facility] SERVICES INR 1.0Comment: Normal INR <1.1; [facility] Warfarin Therapeutic range 2.0 SERVICES to 3.0 or 2.5 to 3.5, depending upon the indications. Specimen Blood - ARM, LEFT Performing Organization Address [facility] one Number [facility] SERVICES CLIA: [id number], [address] [place] [address] [facility] * Profile / Hemogram (06/19/2019 8:25 PM CDT) Pathologist [facility] WBC 7.95 4.20 - 10.70 [facility] 10*3/L SERVICES RBC 4.91 4.26 - 5.52 10*6/L [facility] LABO RATORY SERVICES HGB 14.3 12.2 - 16.4 g/dL [facility] RY SERVICES HCT 43.4 38.4 - 49.3 % [facility] SERVICES MCH 29.1 26.1 - 32.7 pg [facility] SERVICES MCV 88.4 81.7 - 95.6 fL [facility] MCHC 32.9 31.2 - 35.0 g/dL [facility] SERVICES PLT 210 150 - 328 10*3/L [facility] LABORA T[facility] SERVICES MPV 9.0 (L) 9.8 - 13.0 fL [facility] SERVICES RDW-CV 14.2 12.1 - 15.4 % [facility] RDW-SD 45.7 38.5 - 51.6 fL [facility] NRBC x10^3 <0.01 10*3/L [facility] NRBC/100 WBC 0.0 0.0 - 10.0 /100 WBCs [facility] SERVICES IPF % [facility] SERVICES Specimen Blood - ARM, LEFT Performing Organization Address City/State/Zipcode Ph one Number [facility] SERVICES CLIA: [id number], [address] [place] [address] [facility] * Basic Metabolic Panel (NA, K, CL, CO2, GLUCOSE, BUN, CREATININE, CA) (06/19/2019 8:25 PM CDT) NA 141 135 - 145 mmol/L [facility] RY SERVICES K 4.3 3.5 - 5.0 mmol/L [facility] CL 105 98 - 108 mmol/L [facility] Y SERVICES CO2 TOTAL 26 23 - 31 mmol/L [facility] AGAP 10 2 - 16 [facility] BUN 9 7 - 23 mg/dL [facility] SERVICES GLUCOSE 86 70 - 110 mg/dL [facility] SERVICES CREATININE 0.80 0.60 - 1.25 mg/dL [facility] ORY SERVICES CALCIUM 9.3 8.6 - 10.6 mg/dL [facility] RY SERVICES eGFR 99.6 mL/min/1.73m2 [facility] Calculation SERVICES (Non-) eGFR 120.8 mL/min/1.73m2 [facility] Calculation SERVICES () Specimen [...] [facility] CLIA: [id number], [address] [place] [address] [facility] * HOSPITAL ADMISSION (06/19/2019 12:01 [...] LUMBAR SPINE 2 VW (05/29/2019 2:58 PM DUNGEON MASTER) Specimen Impressions Performed At FINDINGS/IMPRESSION:: PACS/VR/DOSE Frontal [...] Results Inft User - 05/29/2019 3:15 PM DUNGEON MASTER EXAM: XR LUMBAR SPINE 2 VW HISTORY: [...] PACS/VR/DOSE * PATIENT QUESTIONNAIRE (05/29/2019 12:01 AM DUNGEON MASTER) Specimen Performing Organization Address City/State/Zipcode Ph one Number HIM from Last 3 Months Insurance Type Payer Benefit Subscriber ID Effective Phone Address Plan / Dates Group Medicaid [employer] [place] [employer] xxxxxxxxx 2015-P P O [facility] [address] [place] [address] Retail Advance Directives Relationship Healthcare Agent Relationship Communicat ion Name Emergency Contact Primary healthcare agent [phone] (M obile) Luanne Carson healthcare agent Rico Christie
--- OUTSIDE RECORDS SUMMARY | 2019-11-04 15:56 | XMS REPORT | Clinical Summary ---
Author Author [facility] - Health Organization [facility] - Health Address Unknown Phone Unavailable Care Team Providers Care Program Analyst Name Role Phone Gabriella Coyle MD 12 Unavailable Pcp, Patient Does Not Have A PCP [phone] Allergies Comments Active Allergy Reactions Severity Noted [...] Added automatically from request for buzz nguyen [id number] Wound dehiscence 08/23/2017 Hardware complicating wound infection 08/18/2017 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 09/21/2016 Overview: Added automatically from request for buzz nguyen [id number] Chronic diastolic congestive heart failure 7 Narcotic abuse 03/14/2016 Overview: No further narcotic prescriptions from [facility] Family Medicine. Pt informed 03/13/16.- [...] Encounters Care Team Description Date Type Specialty Prerna Thompson, PT DISCHARGE 07/16/2019 Clinic Physical [...] Type Area Manufactur er 04/26/2017 2018-40 / [id number] / [id number] Dbm Putty Maxxeus 10cc Cts #2018-40 BONE Left: Spin e Counts Include 234 Beds At [facility] - [id number] Tissue Implanted: Qty: 1 on 11/10/2015 by Services Harrison Wise MD at [facility] 07/07/2020 1234-12 / [id number] / [id number] Cancellous Crushed, Community BONE Left: [facility] Tissue Services (1 10mm) Freeze Tissue Dried 60.0 Cc #1234-12 - S0000 Services Implanted: Qty: 1 on 11/10/2015 by Harrison Wise MD at [facility] 10/16/2021 1235-12 / [id number] / [id number] Cancellous Crushed, Counts Include 234 Beds At [facility] BONE N/A: Back Counts Include 234 Beds At [facility] Tissue Services (1 10mm) Freeze Tissue Dried 90.0 Cc #1235-12 - Services [id number] Implanted: Qty: 1 on 01/19/2017 by Harrison Wise MD at [facility] 09/22/2018 2018-40 / [id number] / [id number] Dbm Putty Maxxeus 10cc Cts #2018-40 BONE N/A: Back Counts Include 234 Beds At [facility] - [id number] Tissue Implanted: Qty: 1 on 01/19/2017 by Services Harrison Wise MD at [facility] 07/23/2018 [id number] / 00 / 00 Duraseal, Covidien Improved Dural Duraseal N/A: Spine Tyco/Covid Sealant System 5ml #[id number] - S00 ien Implanted: Qty: 1 on 08/08/2017 by Harrison Wise MD at [facility] 01/19/2027 [id number] / 0 / [id number] Yareli 4.75 Ccm Ns Curved 70mm Solara YARELI N/A: Back Medtronic Medtronic #[id number] - S0 Implanted: Qty: 2 on 01/19/2017 by Harrison Wise MD at [facility] 11/09/2025 [id number] / 0000 / [id number] Screw Solera 6.5x30mm Medtronic SCREW Left: Spine Medtronic #[id number] - [id number] Implanted: Qty: 2 on 11/10/2015 by Harrison Wise MD at [facility] 11/09/2025 [id number] / 0000 / [id number] Screw, Medtronic Solara 6.5x45 SCREW Left: Spine Medtronic #[id number] - [id number] Implanted: Qty: 2 on 11/10/2015 by Harrison Wise MD at [facility] 01/19/2027 [id number] / 0 / [id number] Screw Solera 8.5x30mm Mas Medtronic SCREW N/A: Back Medtronic #[id number] Implanted: Qty: 2 on 01/19/2017 by Harrison Wise MD at [facility] 01/19/2027 [id number] / 0 / [id number] Screw, Medtronic Solara 6.5x45 SCREW N/A: Back Medtronic #[id number] - S0 Implanted: Qty: 2 on 01/19/2017 by Harrison Wise MD at [facility] 08/09/2027 [id number] / 00 / 00 Screw, Medtronic # Set Break Off Ti SCREW N/A: Spine Medtronic #[id number] - S00 Implanted: Qty: 3 on 08/08/2017 by Harrison Wise MD at [facility] Description:No charge for any implant per Cordell Bellte[employer] 11/09/2025 [id number] / 000 / [id number] Screw Solera 4.75 Ti Ns Break Off Left: Spine Med tronic Medtronic #[id number] - S000 Implanted: Qty: 4 on 11/10/2015 by Harrison Wise MD at [facility] 11/09/2025 [id number] / 0000 / [id number] Yareli 4.75 Ccm Ns Curved 45mm Solera Left: Spine Me dtronic Medtronic #[id number] - [id number] Implanted: Qty: 2 on 11/10/2015 by Harrison Wise MD at [facility] 01/19/2027 [id number] / 0 / [id number] Screw Solera 4.75 Ti Ns Break Off N/A: Back Med tronic Medtronic #[id number] - S0 Implanted: Qty: 6 on 01/19/2017 by Harrison Wise MD at [facility] 01/19/2027 [id number] / 0 / [id number] Screw Solera 7.5x45mm Medtronic N/A: Back Medtr onic #[id number] - S0 Implanted: Qty: 2 on 01/19/2017 [...] Chronic l ow back pain, 2:58 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 SERVICES Specimen Swab - NARES, BOTH SIDES Performing Organization Address City/[facility] Ph one Number [facility] CLIA: [id number], [address] [place] [address] [facility] * MYOGLOBIN SERUM (06/19/2019 8:54 PM CDT) MYOGLOB S 75.4 <=121.0 ng/mL [facility] SERVICES Specimen Blood - ARM, LEFT Narrative Performed At Biotin has been reported to cause a neg ative bias, interpret results relative to [facility] patient's use of biotin. SERVICES Performing Organization Address City/[facility] Ph one Number [facility] CLIA: [id number], [address] [place] [address] [facility] * CREATINE KINASE (06/19/2019 8:54 PM CDT) CK 68 33 - 194 U/L [facility] SERVICES Specimen Blood - ARM, LEFT Performing Organization Address City/State/Zipcode Ph one Number [facility] CLIA: [id number], [address] [place] [address] * CT THORAX W CONTRAST (06/19/2019 [...] effect. No parenchymal attenuation abnormality. Th e xioa-white matter differentiation is preserved. Intracranial atherosclero sis. [...] with the above report. Performing Organization Address City/State[facility] Ph one Number PACS/VR/DOSE * CT [...] with the above report. Performing Organization Address [facility] one Number PACS/VR/DOSE * Type and Screen - The Type and Screen expires at midnight on the 3rd day after it was drawn. A current Type and Screen is required when RBCs are requested. For all other blood products, a Type and Screen performed during the current hospitalizati... (06/19/2019 8:26 PM CDT) ABO & RH A POSITIVE LAB Comment: Performed at [facility] Laboratory Services - [facility] Blood Bank [address] [place] [address] Toll Free: [phone] CLIA No. [id number] IAT Negative LAB Comment: Performed at [facility] Laboratory Services - [facility] Blood Bank [address] [place] [address] Toll Free: [phone] CLIA No. [id number] Specimen Blood - VENOUS Performing Organization Address [facility] one Number D LAB * aPTT (06/19/2019 8:25 PM CDT) APTT Patient 26 26 - 36 Seconds [facility] LABORATOR Y SERVICES Specimen Blood - ARM, LEFT Performing Organization Address [facility] one Number [facility] CLIA: [id number], [address] [place] [address] [facility] * Prothrombin Time (PT) / INR (06/19/2019 8:25 PM CDT) [facility] PROTIME PATIENT 10.9 10.1 - 12.6 Seconds [facility]AT[facility] SERVICES INR 1.0Comment: Normal INR <1.1; [facility] Warfarin Therapeutic range 2.0 SERVICES to 3.0 or 2.5 to 3.5, depending upon the indications. Specimen Blood - ARM, LEFT Performing Organization Address [facility] Ph one Number [facility] CLIA: [id number], [address] [place] [address] [facility] * Profile / Hemogram (06/19/2019 8:25 PM CDT) [facility] WBC 7.95 4.20 - 10.70 [facility] 10*3/L SERVICES RBC 4.91 4.26 - 5.52 10*6/L [facility] SERVICES HGB 14.3 12.2 - 16.4 g/dL [facility] RY SERVICES HCT 43.4 38.4 - 49.3 % [facility] MCH 29.1 26.1 - 32.7 pg [facility] MCV 88.4 81.7 - 95.6 fL [facility] MCHC 32.9 31.2 - 35.0 g/dL [facility] RY SERVICES PLT 210 150 - 328 10*3/L [facility] T[facility] SERVICES MPV 9.0 (L) 9.8 - 13.0 fL [facility] RDW-CV 14.2 12.1 - 15.4 % [facility] RDW-SD 45.7 38.5 - 51.6 fL [facility] NRBC x10^3 <0.01 10*3/L [facility] NRBC/100 WBC 0.0 0.0 - 10.0 /100 WBCs [facility] SERVICES IPF % [facility] Specimen Blood - ARM, LEFT Performing Organization Address [facility] one Number [facility] CLIA: [id number], [address] [place] [id number] [facility] * Basic Metabolic Panel (NA, K, CL, CO2, GLUCOSE, BUN, CREATININE, CA) (06/19/2019 8:25 PM CDT) NA 141 135 - 145 mmol/L [facility] RY SERVICES K 4.3 3.5 - 5.0 mmol/L [facility] RY SERVICES CL 105 98 - 108 mmol/L [facility] LABORATOR Y SERVICES CO2 TOTAL 26 23 - 31 mmol/L [facility] AGAP 10 2 - 16 [facility] BUN 9 7 - 23 mg/dL [facility] GLUCOSE 86 70 - 110 mg/dL [facility] CREATININE 0.80 0.60 - 1.25 mg/dL [facility]ORAT ORY SERVICES CALCIUM 9.3 8.6 - 10.6 mg/dL [facility] RY SERVICES eGFR 99.6 mL/min/1.73m2 [facility] Calculation SERVICES (Non-) eGFR 120.8 mL/min/1.73m2 [facility] Calculation SERVICES () Specimen Blood - ARM, LEFT Narrative Performed At Association of Glomerular Filtration Rate (GFR) and S taging of Kidney Disease* [facility] + + +------ + [...] abnormalities in imaging tests). Performing Organization Address City/[facility] one Number [facility] CLIA: [id number], [address] [place] [address] [facility] * HOSPITAL ADMISSION (06/19/2019 12:01 AM CDT) Only the most recent of 2 results within the time period is included. Specimen Performing Organization Address City/[facility]/Zipcode Ph one Number HIM * EMERGENCY DEPARTMENT DOCUMENTS (06/19/2019 12:01 AM CDT) Specimen Performing Organization Address City/State/Zipcode Ph one Number [facility] * AUTHORIZATION FOR RELEASE OF PHI (06/16/2019 12:01 AM CDT) Only the most recent of 2 results within the time period is included. Specimen Performing Organization Address City/State/Zipcode Ph one Number [facility] * XR LUMBAR SPINE 2 VW (05/29/2019 2:58 PM VACUUM COOKER OPERATOR) Specimen Impressions Performed At FINDINGS/IMPRESSION:: PACS/VR/DOSE [...] Results Inft User - 05/29/2019 3:15 PM VACUUM COOKER OPERATOR EXAM: XR LUMBAR SPINE 2 VW [...] PACS/VR/DOSE * PATIENT QUESTIONNAIRE (05/29/2019 12:01 AM VACUUM COOKER OPERATOR) Specimen Performing Organization Address City/State/Zipcode Ph one Number [facility] from Last 3 Months Insurance Type Payer Benefit Subscriber ID Effective Phone Address Plan / Dates Group Medicaid [employer] [place] [employer] xxxxxxxxx 2015-Chanel KISER X [facility] [address] [place] [address] [employer] Advance Directives Relationship Healthcare Agent Relationship Communicat ion Name Emergency Contact Primary healthcare agent [phone] (M obile) Luanne Carson Child First alternate healthcare agent Rico Christie
--- OUTSIDE RECORDS SUMMARY | 2019-11-04 15:56 | XMS REPORT | Summary of Care ---
Author Author [facility] [[email or web address] - Health Organization [facility] [[email or web address] - Health Address Unknown Phone Unavailable Care Team Providers Care Parliamentary Archivist Name Role Phone Gabriella Coyle MD 12 Unavailable Pcp, Patient Does Not Have A PCP [phone] Reason for Visit * Reason Comments Hearing Aid Check Encounter Details Care Team Description Date Type Department Nikki Weber, PHD [address] [facility] [address] [place] [address] [facility] Bilateral sensorineural hearing loss (Pr imary Dx) 07/29/2019 Ancillary Visit [facility] Cntr fo r Audiology & Speech Path-[address] [place] [phone] Allergies Comments Active Allergy Reactions Severity Noted [...] Added automatically from request for buzz nguyen [id number] Wound dehiscence 08/23/2017 Hardware complicating wound infection 08/18/2017 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 09/21/2016 Overview: [id number] Chronic diastolic congestive heart failure 7 Narcotic [...] fixed. Discussed sending in for repair with galvanizing pot runner with a 1-year warranty. Mr. Christie opted to have toys and games hand finisher fixed in-office today so he can have it for court tomorrow. Mr. Christie also wants to be fit with a hearing aid on his right ear because he often has d ifficulty hearing and sometimes feels off-balance using the one hearing aid. FILER REPAIRER/MODEL: [email or web address] [id number] SERIAL # Left Ear: [id number] Objective/Assessment: The following services were completed. Visual inspection o f hearing aid revealed broken toys and games hand finisher (as described previously) and wax obscuri ng microphone openings. Hearing aid was cleaned, and size 1 standard toys and games hand finisher was replaced with size 1 p ower toys and games hand finisher 2017 audio showed thresholds in moderately severe to severe ra nge (at the border of standard toys and games hand finisher power), and Mr. Christie has noted previo [...] D[facility] Vanita Clarke Audiology Anti Air Warfare Operations Officer * Curly Price AUD - 07/29/2019 9:00 AM CDT I was available in clinic during the attempted evaluation of Harvey crum by Vanita Clarke, Audiology Anti Air Warfare Operations Officer. I have read and reviewed the repo rt, and agree as written. Gurpreet Walls, [facility]-A [place] Board of Audiology (FELIPA) Certified Preschool Aide * Rosamaria Shepherd - 07/29/2019 9:00 AM CDT AUDIOLOGY HEARING AID CHECK Subjective: Harvey Christie visited today as a walk in hearing aid check. He reported his toys and games hand finisher was broken, and he needs it fixed for a deposition zoe rrow. Objective/Assessment: The following services were completed. Visual inspection of hearing aid revealed toys and games hand finisher broken off from toys and games hand finisher wire . Mr. Christie was informed that he is now out of warranty, and there would be a charge to replace the toys and games hand finisher. Mr. Christie opted not to have any services today. Plan: - Warranty 12/13/2018. - Replace toys and games hand finisher or send hearing aid to [employer] pot [employer] for repair with a 1 year warranty. - Return PRN. Vanita Clarke Audiology Anti Air Warfare Operations Officer documented in this encounter Plan of Treatment Care Team Description Date Type Specialty Nikki Weber, PHD [address] [place] [address] [phone] Audio Sound Suite 08/01/2019 Ancillary Visit Audiology Mehreen Schwab MD [address] [facility] [id number] [place], [place] [id number] 08/26/2019 Office Visit Ophthalmology Freya Tomas MD [address] [place] [address]. [place] [phone] 08/27/2019 Telemedicine Psychiatry Visit Health Maintenance Due [...] Type Area Manufactur er 04/26/2017 2018-40 / [id number] / [id number] Dbm Putty Maxxeus 10cc Cts #2018-40 BONE Left: Spin e Community - [id number] Tissue Implanted: Qty: 1 on 11/10/2015 by Services Harrison Wise MD at [facility] 07/07/2020 1234-12 / [id number] / [id number] Cancellous Crushed, Community BONE Left: Spine [facility] Tissue Services (1 10mm) Freeze Tissue Dried 60.0 Cc #1234-12 - S0000 Services Implanted: Qty: 1 on 11/10/2015 by Harrison Wise MD at [facility] 10/16/2021 1235-12 / [id number] / [id number] Cancellous Crushed, [facility] BONE N/A: [facility] Tissue Services (1 10mm) Freeze Tissue Dried 90.0 Cc #1235-12 - Services [id number] Implanted: Qty: 1 on 01/19/2017 by Harrison Wise MD at [facility] 09/22/2018 2018-40 / [id number] / [id number] Dbm Putty Maxxeus 10cc Cts #2017- BONE N/A: [facility] - [id number] Tissue Implanted: Qty: 1 on 01/19/2017 by Services Harrison Wise MD at [facility] 07/23/2018458923 / Duraseal, Covidien Improved Dural Duraseal N/A: Spine Tyco/Covid Sealant System 5ml #647984 - S00 ien Implanted: Qty: 1 on 08/08/2017 by Harrison Wise MD at [facility] 01/19/2027 [id number] / 0 / [id number] Yareli 4.75 Ccm Ns Curved 70mm Solara YARELI N/A: Back Medtronic Medtronic #[id number] - S0 Implanted: Qty: 2 on 01/19/2017 by Harrison Wise MD at [facility] 11/09/2025 [id number] / 0000 / [id number] Screw Solera 6.5x30mm Medtronic SCREW Left: Spine Medtronic #[id number] - [id number] Implanted: Qty: 2 on 11/10/2015 by Harrison Wise MD at [facility] 11/09/2025 [id number] / 0000 / [id number] Screw, Medtronic Solara 6.5x45 SCREW Left: Spine Medtronic #[id number] - [id number] Implanted: Qty: 2 on 11/10/2015 by Harrison Wise MD at [facility] 01/19/2027 [id number] / 0 / [id number] Screw Solera 8.5x30mm Mas Medtronic SCREW N/A: Back Medtronic #[id number] Implanted: Qty: 2 on 01/19/2017 by Harrison Wise MD at [facility] 01/19/2027 [id number] / 0 / [id number] Screw, Medtronic Solara 6.5x45 SCREW N/A: Back Medtronic #[id number] - S0 Implanted: Qty: 2 on 01/19/2017 by Harrison Wise MD at [facility] 08/09/2027 [id number] / 00 / 00 Screw, Medtronic # Set Break Off Ti SCREW N/A: Spine Medtronic #[id number] - S00 Implanted: Qty: 3 on 08/08/2017 by Harrison Wise MD at [facility] Description:No charge for any implant per Hortensia Bell 11/09/2025 [id number] / 000 / [id number] Screw Solera 4.75 Ti Ns Break Off Left: Spine Med tronic Medtronic #[id number] - S000 Implanted: Qty: 4 on 11/10/2015 by Harrison Wise MD at [facility] 11/09/2025 [id number] / 0000 / [id number] Yareli 4.75 Ccm Ns Curved 45mm Solera Left: Spine Me dtronic Medtronic #[id number] - S0000 Implanted: Qty: 2 on 11/10/2015 by Harrison Wise MD at [facility] 01/19/2027 [id number] / 0 / [id number] Screw Solera 4.75 Ti Ns Break Off N/A: Back Med tronic Medtronic #[id number] - S0 Implanted: Qty: 6 on 01/19/2017 by Harrison Wies MD at [facility] 01/19/2027 [id number] / 0 / [id number] Screw Solera 7.5x45mm Medtronic N/A: Back Medtr onic #[id number] - S0 Implanted: Qty: 2 on 01/19/2017 by Harrison Wise MD at [facility] documented as of this encounter Results Not on filedocumented in this encounter Visit Diagnoses Diagnosis Bilateral sensorineural hearing loss - Primary Sensorineural hearing loss, bilateral documented in this encounter Insurance Type Payer Benefit Subscriber ID Effective Phone Address Plan / Dates Group Medicaid [employer] [place] [employer] xxxxxxxxx 2015-P P O MARGI [facility] [address] [place] [address] Retail documented as of this encounter Advance Directives Relationship Healthcare Agent Relationship Communicat ion Name Emergency Contact Primary healthcare agent [phone] (M obile) Luanne Carson Child First alternate healthcare agent Rico Christie
--- OUTSIDE RECORDS SUMMARY | 2019-11-04 15:56 | XMS REPORT | Clinical Summary ---
Author Author [facility] - Health Organization [facility] - Health Address Unknown Phone Unavailable Care Team Providers Care Stockroom Coordinator Name Role Phone Gabriella Coyle MD 12 Unavailable Pcp, Patient Does Not Have A PCP [phone] Allergies Comments Active Allergy Reactions Severity Noted [...] Added automatically from request for buzz nguyen [id number] Wound dehiscence 08/23/2017 Hardware complicating wound infection 08/18/2017 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 09/21/2016 Overview: Added automatically from request for buzz nguyen [id number] Chronic diastolic congestive heart failure 7 Narcotic [...] Type Area Manufactur er 04/26/2017 2018-40 / [id number] / [id number] Dbm Putty Maxxeus 10cc Cts #2018-40 BONE Left: Spin e [facility] - [id number] Tissue Implanted: Qty: 1 on 11/10/2015 by Services Harrison Wise MD at [facility] 07/07/2020 1234-12 / [id number] / [id number] Cancellous Crushed, Community BONE Left: [facility] Tissue Services (1 10mm) Freeze Tissue Dried 60.0 Cc #1234-12 - [id number] Services Implanted: Qty: 1 on 11/10/2015 by Harrison Wise MD at [facility] 10/16/2021 1235-12 / [id number] / [id number] Cancellous Crushed, [facility] BONE N/A: Back [facility] Tissue Services (1 10mm) Freeze Tissue Dried 90.0 Cc #1235-12 - Services [id number] Implanted: Qty: 1 on 01/19/2017 by Harrison Wise MD at [facility] 09/22/2018 2018-40 / [id number] / [id number] Dbm Putty Maxxeus 10cc Cts #2018-40 BONE N/A: Back [facility] - [id number] Tissue Implanted: Qty: 1 on 01/19/2017 by Services Harrison Wise MD at [facility] 07/23/2018 [id number] / 00 / 00 Duraseal, Covidien Improved Dural Duraseal N/A: Spine Tyco/Covid Sealant System 5ml #[id number] - S00 ien Implanted: Qty: 1 on 08/08/2017 by Harrison Wise MD at [facility] 01/19/2027 [id number] / 0 / [id number] Yareli 4.75 Ccm Ns Curved 70mm Solara YARELI N/A: Back Medtronic Medtronic #[id number] - S0 Implanted: Qty: 2 on 01/19/2017 by Harrison Wise MD at [facility] 11/09/2025 [id number] / 0000 / [id number] Screw Solera 6.5x30mm Medtronic SCREW Left: Spine Medtronic #[id number] - [id number] Implanted: Qty: 2 on 11/10/2015 by Harrison Wise MD at [facility] 11/09/2025 [id number] / 0000 / [id number] Screw, Medtronic Solara 6.5x45 SCREW Left: Spine Medtronic #[id number] - S0000 Implanted: Qty: 2 on 11/10/2015 by Harrison Wise MD at [facility] 01/19/2027 [id number] / 0 / [id number] Screw Solera 8.5x30mm Mas Medtronic SCREW N/A: Back Medtronic #[id number] Implanted: Qty: 2 on 01/19/2017 by Harrison Wise MD at [facility] 01/19/2027 [id number] / 0 / [id number] Screw, Medtronic Solara 6.5x45 SCREW N/A: Back Medtronic #[id number] - S0 Implanted: Qty: 2 on 01/19/2017 by Harrison Wise MD at [facility] 08/09/2027 [id number] / 00 / 00 Screw, Medtronic # Set Break Off Ti SCREW N/A: Spine Medtronic #[id number] - S00 Implanted: Qty: 3 on 08/08/2017 by Harrison Wise MD at [facility] Description:No charge for any implant per Cordell Bellte[employer] 11/09/2025 [id number] / 000 / [id number] Screw Solera 4.75 Ti Ns Break Off Left: Spine Med tronic Medtronic #[id number] - S000 Implanted: Qty: 4 on 11/10/2015 by Harrison Wise MD at [facility] 11/09/2025 [id number] / 0000 / [id number] Yareli 4.75 Ccm Ns Curved 45mm Solera Left: Spine Me dtronic Medtronic #[id number] - S0000 Implanted: Qty: 2 on 11/10/2015 by Harrison Wise MD at [facility] 01/19/2027 [id number] / 0 / [id number] Screw Solera 4.75 Ti Ns Break Off N/A: Back Med tronic Medtronic #[id number] - S0 Implanted: Qty: 6 on 01/19/2017 by Harrison Wise MD at [facility] 01/19/2027 [id number] / 0 / [id number] Screw Solera 7.5x45mm Medtronic N/A: Back Medtr onic #[id number] - S0 Implanted: Qty: 2 on 01/19/2017 by Harrison Wise MD at [facility] Procedures Comments Procedure Name Priority Date/Time [...] Chronic l ow back pain, 2:58 PM DIRT SHOVELER unspecified back pain laterality, unspecified whether sciatica present PATIENT QUESTIONNAIRE Routine 05/29/2019 12:01 AM DIRT SHOVELER from Last 3 Months Results * MRSA / MSSA Screen by PCR, Nares (06/19/2019 10:01 PM CDT) MRSA Screen by Negative Negative [facility] PCR, Nares SERVICES MSSA Screen by Negative Negative [facility] PCR, Nares SERVICES MRSA/MSSA No No [facility] Positive? SERVICES Specimen Swab - NARES, BOTH SIDES Performing Organization Address City/[facility] Ph one Number [facility] CLIA: [id number], [address] [place] [address] [facility] * MYOGLOBIN SERUM (06/19/2019 8:54 PM CDT) MYOGLOB S 75.4 <=121.0 ng/mL [facility] SERVICES Specimen Blood - ARM, LEFT Narrative Performed At Biotin has been reported to cause a neg ative bias, interpret results relative to [facility] patient's use of biotin. SERVICES Performing Organization Address City/[facility] Ph one Number [facility] CLIA: [id number], [address] [place] [address] [facility] * CREATINE KINASE (06/19/2019 8:54 PM CDT) CK 68 33 - 194 U/L [facility] Specimen Blood - ARM, LEFT Performing Organization Address City/State/Zipcode Ph one Number [facility] CLIA: [id number], [address] [place] [address] * CT THORAX W CONTRAST (06/19/2019 [...] with the above report. Performing Organization Address [facility] one Number PACS/VR/DOSE * Type [...] [facility] Laboratory Services - [facility] [address] [place] [address] Toll Free: [phone] CLIA No. [id number] IAT Negative LAB Comment: Performed at [facility] Laboratory Services - [facility] [address] [place] [address] Toll Free: [phone] CLIA No. [id number] Specimen Blood - VENOUS Performing Organization Address [facility] one Number D LAB * aPTT (06/19/2019 8:25 PM CDT) APTT Patient 26 26 - 36 Seconds [facility] LABOR[facility] Y SERVICES Specimen Blood - ARM, LEFT Performing Organization Address [facility] one Number [facility] CLIA: [id number], [address] [place] [address] [facility] * Prothrombin Time (PT) / INR (06/19/2019 8:25 PM CDT) [facility] PROTIME PATIENT 10.9 10.1 - 12.6 Seconds [facility] INR 1.0Comment: Normal INR <1.1; [facility] Warfarin Therapeutic range 2.0 SERVICES to 3.0 or 2.5 to 3.5, depending upon the indications. Specimen Blood - ARM, LEFT Performing Organization Address [facility] Ph one Number [facility] CLIA: [id number], [address] [place] [address] [facility] * Profile / Hemogram (06/19/2019 8:25 PM CDT) [facility] WBC 7.95 4.20 - 10.70 [facility] 10*3/L SERVICES RBC 4.91 4.26 - 5.52 10*6/L [facility] HGB 14.3 12.2 - 16.4 g/dL [facility] RY SERVICES HCT 43.4 38.4 - 49.3 % [facility] MCH 29.1 26.1 - 32.7 pg [facility] MCV 88.4 81.7 - 95.6 fL [facility] MCHC 32.9 31.2 - 35.0 g/dL [facility] RY SERVICES PLT 210 150 - 328 10*3/L [facility] SERVICES MPV 9.0 (L) 9.8 - 13.0 fL [facility] RDW-CV 14.2 12.1 - 15.4 % [facility] RDW-SD 45.7 38.5 - 51.6 fL [facility] NRBC x10^3 <0.01 10*3/L [facility] NRBC/100 WBC 0.0 0.0 - 10.0 /100 WBCs [facility] IPF % [facility] Specimen Blood - ARM, LEFT Performing Organization Address [facility] one Number [facility] CLIA: [id number], [address] [place] [id number] [facility] * Basic Metabolic Panel (NA, K, CL, CO2, GLUCOSE, BUN, CREATININE, CA) (06/19/2019 8:25 PM CDT) NA 141 135 - 145 mmol/L [facility] RY SERVICES K 4.3 3.5 - 5.0 mmol/L [facility] CL 105 98 - 108 mmol/L [facility] Y SERVICES CO2 TOTAL 26 23 - 31 mmol/L [facility] AGAP 10 2 - 16 [facility] BUN 9 7 - 23 mg/dL [facility] GLUCOSE 86 70 - 110 mg/dL [facility] SERVICES CREATININE 0.80 0.60 - 1.25 [...] abnormalities in imaging tests). Performing Organization Address City/[facility] one Number [facility] CLIA: [id number], [address] [place] [address] [facility] * HOSPITAL ADMISSION (06/19/2019 12:01 AM CDT) Only the most recent of 2 results within the time period is included. Specimen Performing Organization Address City/[facility]/Zipcode Ph one Number HIM * EMERGENCY DEPARTMENT DOCUMENTS (06/19/2019 12:01 AM CDT) Specimen Performing Organization Address City/State/Zipcode Ph one Number [facility] * AUTHORIZATION FOR RELEASE OF PHI (06/16/2019 12:01 AM CDT) Only the most recent of 2 results within the time period is included. Specimen Performing Organization Address City/State/Zipcode Ph one Number [facility] * XR LUMBAR SPINE 2 VW (05/29/2019 2:58 PM DIRT SHOVELER) Specimen Impressions Performed At FINDINGS/IMPRESSION:: PACS/VR/DOSE Frontal [...] Results Inft User - 05/29/2019 3:15 PM DIRT SHOVELER EXAM: XR LUMBAR SPINE 2 VW HISTORY: [...] PACS/VR/DOSE * PATIENT QUESTIONNAIRE (05/29/2019 12:01 AM DIRT SHOVELER) Specimen Performing Organization Address City/State/Zipcode Ph one Number [facility] from Last 3 Months Insurance Type Payer Benefit Subscriber ID Effective Phone Address Plan / Dates Group Medicaid [employer] [place] [employer] xxxxxxxxx 2015-Chanel [facility] [address] [place] [address] [email or web address] Advance Directives Relationship Healthcare Agent Relationship Communicat ion Name Emergency Contact Primary healthcare agent [phone] (M obile) Luanne Carson Child First alternate healthcare agent Rico Christie
--- OUTSIDE RECORDS SUMMARY | 2019-11-04 15:56 | XMS REPORT | Summary of Care ---
Author Author [facility] - Health Organization [facility] - Health Address Unknown Phone Unavailable Care Team Providers Care Nursing Staffing Coordinator Name Role Phone Gabriella Coyle MD 12 Unavailable Pcp, Patient Does Not Have A PCP [phone] Reason for Visit * Reason Comments Hearing Aid Check Encounter Details Care Team Description Date Type Department Nikki Weber, PHD [address] [facility] [id number] [place] [address] Screening/[facility] [place] Bilateral sensorineural hearing loss (Pr imary Dx) 07/29/2019 Ancillary Visit [facility]-[address] [place] [phone] Allergies Comments Active Allergy Reactions Severity Noted [...] Added automatically from request for buzz nguyen [id number] Wound dehiscence 08/23/2017 Hardware complicating wound infection 08/18/2017 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 09/21/2016 Overview: [id number] Chronic diastolic congestive heart failure 7 Narcotic abuse 03/14/2016 Overview: No further narcotic prescriptions from [facility] Family Medicine. Pt informed 03/13/16.- [...] in hearing aid check. He reported his riding coach was broken, and he needs it fixed for a deposition zoe rrow. Objective/Assessment: The following services were completed. Visual inspection of hearing aid revealed riding coach broken off from riding coach wire . Mr. Christie was informed that he is now out of warranty, and there would be a charge to replace the riding coach. Mr. Christie opted not to have any services today. Plan: - Warranty 12/13/2018. - Replace riding coach or send hearing aid to school health assistant for repair with a 1 year warranty. - Return PRN. Vanita [facility] Audiology Snuff Container Inspector documented in this encounter Plan of Treatment Care Team Description Date Type Specialty Freya Tomas MD [address] [place] [address]. [place] [phone] 08/27/2019 Telemedicine Psychiatry Visit Health Maintenance Due [...] Implanted Type Area Manufactur er 04/26/20172017-40 / [id number] / [id number] Dbm Putty Maxxeus 10cc Cts #2017- BONE Left: Spin e [facility] - [id number] Tissue Implanted: Qty: 1 on 11/10/2015 by Harrison Sidhu MD at [facility] 07/07/2020 1234-12 / [id number] / [id number] Cancellous Crushed, Community BONE Left: Spine [facility] Tissue Services (1 10mm) Freeze Tissue Dried 60.0 Cc #1234-12 - S0000 Services Implanted: Qty: 1 on 11/10/2015 by Harrison Wise MD at [facility] 10/16/2021 1235-12 / [id number] / [id number] Cancellous Crushed, Community BONE N/A: Back [facility] Tissue Services (1 10mm) Freeze Tissue Dried 90.0 Cc #1235-12 - Services [id number] Implanted: Qty: 1 on 01/19/2017 by Harrison Wise MD at [facility] 09/22/20182017- / [id number] / [id number] Dbm Putty Maxxeus 10cc Cts # BONE N/A: Back [facility] - [id number] Tissue Implanted: Qty: 1 on 01/19/2017 by Harrison Sidhu MD at [facility] 07/23/2018084318 / Duraseal, Covidien Improved Dural Duraseal N/A: Spine Tyco/Covid Sealant System 5ml #049631 - S00 ien Implanted: Qty: 1 on 08/08/2017 by Harrison Wise MD at [facility] 01/19/2027 [id number] / 0 / [id number] Yareli 4.75 Ccm Ns Curved 70mm Solara YARELI N/A: Back Medtronic Medtronic #[id number] - S0 Implanted: Qty: 2 on 01/19/2017 by Harrison Wise MD at [facility] 11/09/2025 [id number] / 0000 / [id number] Screw Solera 6.5x30mm Medtronic SCREW Left: Spine Medtronic #[id number] - S0000 Implanted: Qty: 2 on 11/10/2015 by Harrison Wise MD at [facility] 11/09/2025 [id number] / 0000 / [id number] Screw, Medtronic Solara 6.5x45 SCREW Left: Spine Medtronic #[id number] - S0000 Implanted: Qty: 2 on 11/10/2015 by Harrison Wise MD at [facility] 01/19/2027 [id number] / 0 / [id number] Screw Solera 8.5x30mm Mas Medtronic SCREW N/A: Back Medtronic #[id number] Implanted: Qty: 2 on 01/19/2017 by Harrison Wise MD at [facility] 01/19/2027 [id number] / 0 / [id number] Screw, Medtronic Solara 6.5x45 SCREW N/A: Back Medtronic #[id number] - S0 Implanted: Qty: 2 on 01/19/2017 by Harrison Wise MD at [facility] 08/09/2027 [id number] / 00 / 00 Screw, Medtronic # Set Break Off Ti SCREW N/A: Spine Medtronic #[id number] - S00 Implanted: Qty: 3 on 08/08/2017 by Harrison Wise MD at [facility] Description:No charge for any implant per Hortensia Bell 11/09/2025 [id number] / 000 / [id number] Screw Solera 4.75 Ti Ns Break Off Left: Spine Med tronic Medtronic #[id number] - S000 Implanted: Qty: 4 on 11/10/2015 by Harrison Wise MD at [facility] 11/09/2025 [id number] / 0000 / [id number] Yareli 4.75 Ccm Ns Curved 45mm Solera Left: Spine Me dtronic Medtronic #[id number] - S0000 Implanted: Qty: 2 on 11/10/2015 by Harrsion Wise MD at [facility] 01/19/2027 [id number] / 0 / [id number] Screw Solera 4.75 Ti Ns Break Off N/A: Back Med tronic Medtronic #[id number] - S0 Implanted: Qty: 6 on 01/19/2017 by Harrison Wise MD at [facility] 01/19/2027 [id number] / 0 / [id number] Screw Solera 7.5x45mm Medtronic N/A: Back Medtr onic #[id number] - S0 Implanted: Qty: 2 on 01/19/2017 by Harrison Wise MD at [facility] documented as of this encounter Results Not on filedocumented in this encounter Visit Diagnoses Diagnosis Bilateral sensorineural hearing loss - Primary Sensorineural hearing loss, bilateral documented in this encounter Insurance Type Payer Benefit Subscriber ID Effective Phone Address Plan / Dates Group Medicaid [facility] AMERIGROUP xxxxxxxxx 2015-P [address] [facility] [address] [place] [address] Street [employer] (Home) [place] [address] Retail documented as of this encounter Advance Directives Relationship Healthcare Agent Relationship Communicat ion Name Emergency Contact Primary healthcare agent [phone] (M obile) Luanne Carson Child First alternate healthcare agent Rico Christie
--- OUTSIDE RECORDS SUMMARY | 2019-11-04 15:56 | XMS REPORT | Summary of Care ---
Author Author [facility] - Health Organization [facility] - Health Address Unknown Phone Unavailable Care Team Providers Care Head Of Global Strategic Partnerships Name Role Phone Gabriella Coyle MD 12 Unavailable Pcp, Patient Does Not Have A PCP [phone] Encounter Details Care Team Description Date Type Department Doctor Unassigned, Mulat [address] [place] [address] 08/01/2019 Orders Only [address] [address] Allergies Comments Active Allergy Reactions Severity Noted [...] Added automatically from request for gerber wendy [id number] Wound dehiscence 08/23/2017 Hardware complicating wound infection 08/18/2017 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 09/21/2016 Overview: Added automatically from request for buzz nguyen [id number] Chronic diastolic congestive heart failure 7 Narcotic [...] Treatment Care Team Description Date Type Specialty Zaheer, Mehreen Gatica MD [address] [place] [address] [id number] [place] [address] 08/26/2019 Office Visit Ophthalmology Freya Tomas MD [address] [place] [address]. [place] [phone] 08/27/2019 Telemedicine Psychiatry Visit SorayaAndree, AUD [address] [place], [place] [address] 10/07/2019 Ancillary Visit Audiology Health Maintenance Due [...] Implanted Type Area Manufactur er 04/26/20172017-40 / [id number] / [id number] Dbm Putty Maxxeus 10cc Cts #2018-40 BONE Left: Spin e [facility] - [id number] Tissue Implanted: Qty: 1 on 11/10/2015 by Services Harrison Wise MD at [facility] 07/07/2020 1234-12 / [id number] / [id number] Cancellous Crushed, Community BONE Left: Spine [facility] Tissue Services (1 10mm) Freeze Tissue Dried 60.0 Cc #1234-12 - S0000 Services Implanted: Qty: 1 on 11/10/2015 by Harrison Wise MD at [facility] 10/16/2021 1235-12 / [id number] / [id number] Cancellous Crushed, Community BONE N/A: Back [employer] [facility] Tissue Services (1 10mm) Freeze Tissue Dried 90.0 Cc #1235-12 - Services [id number] Implanted: Qty: 1 on 01/19/2017 by Harrison Wise MD at [facility] 09/22/2018 2018-40 / [id number] / [id number] Dbm Putty Maxxeus 10cc Cts #2017-40 BONE N/A: Back [facility] - [id number] Tissue Implanted: Qty: 1 on 01/19/2017 by Services Harrison Wise MD at [facility] 07/23/2018489704 / / Duraseal, Covidien Improved Dural Duraseal N/A: Spine Tyco/Covid Sealant System 5ml #604685 - S00 ien Implanted: Qty: 1 on 08/08/2017 by Harrison Wise MD at [facility] 01/19/2027 [id number] / 0 / [id number] Yareli 4.75 Ccm Ns Curved 70mm Solara YARELI N/A: Back Medtronic Medtronic #[id number] - S0 Implanted: Qty: 2 on 01/19/2017 by Harrison Wise MD at [facility] 11/09/2025 [id number] / 0000 / [id number] Screw Solera 6.5x30mm Medtronic SCREW Left: Spine Medtronic #[id number] - S0000 Implanted: Qty: 2 on 11/10/2015 by Harrison Wise MD at [facility] 11/09/2025 [id number] / 0000 / [id number] Screw, Medtronic Solara 6.5x45 SCREW Left: Spine Medtronic #[id number] - S0000 Implanted: Qty: 2 on 11/10/2015 by Harrison Wise MD at [facility] 01/19/2027 [id number] / 0 / [id number] Screw Solera 8.5x30mm Mas Medtronic SCREW N/A: Back Medtronic #[id number] Implanted: Qty: 2 on 01/19/2017 by Harrison Wise MD at [facility] 01/19/2027 [id number] / 0 / [id number] Screw, Medtronic Solara 6.5x45 SCREW N/A: Back Medtronic #[id number] - S0 Implanted: Qty: 2 on 01/19/2017 by Harrison Wise MD at [facility] 08/09/2027 [id number] / 00 / 00 Screw, Medtronic # Set Break Off Ti SCREW N/A: Spine Medtronic #[id number] - S00 Implanted: Qty: 3 on 08/08/2017 by Harrison Wise MD at [facility] Description:No charge for any implant per Hortensia Bell 11/09/2025 [id number] / 000 / [id number] Screw Solera 4.75 Ti Ns Break Off Left: Spine Med tronic Medtronic #[id number] - S000 Implanted: Qty: 4 on 11/10/2015 by Harrison Wise MD at [facility] 11/09/2025 [id number] / 0000 / [id number] Yareli 4.75 Ccm Ns Curved 45mm Solera Left: Spine Me dtronic Medtronic #[id number] - S0000 Implanted: Qty: 2 on 11/10/2015 by Harrison Wise MD at [facility] 01/19/2027 [id number] / 0 / [id number] Screw Solera 4.75 Ti Ns Break Off N/A: Back Med tronic Medtronic #[id number] - S0 Implanted: Qty: 6 on 01/19/2017 by Harrison Wise MD at [facility] 01/19/2027 [id number] / 0 / [id number] Screw Solera 7.5x45mm Medtronic N/A: Back Medtr onic #[id number] - S0 Implanted: Qty: 2 on 01/19/2017 by Harrison Wise MD at [facility] documented as of this encounter Procedures Comments Procedure Name Priority Date/Time Associated Diag nosis AUDIOGRAM Routine 08/01/2019 12:01 AM CDT documented in this encounter Results Not on filedocumented in this encounter Insurance Type Payer Benefit Subscriber ID Effective Phone Address Plan / Dates Group Medicaid [employer] [place] [employer] xxxxxxxxx 2015-P P O [facility] [address] [place] [address] documented as of this encounter Advance Directives Relationship Healthcare Agent Relationship Communicat ion Name Emergency Contact Primary healthcare agent [phone] (M obile) uLanne Carson Child First alternate healthcare agent Rico Christie
--- OUTSIDE RECORDS SUMMARY | 2019-11-04 15:57 | XMS REPORT | Summary of Care ---
Author Author [facility] - Health Organization [facility] - Health Address Unknown Phone Unavailable Care Team Providers Care Steward/Stewardess Economy Class Name Role Phone Gabriella Coyle MD 12 Unavailable Pcp, Patient Does Not Have A PCP [phone] Encounter Details Care Team Description Date Type Department Angelica Araya [address] [place] [address] 11/03/2019 Telephone [facility] [address] [place] [address] Allergies Comments Active Allergy Reactions Severity Noted Date Penicillins Rash 11/09/2015 documented as of this encounter (statuses as of 11/03/2019) Medications End Date Status Medication Sig Dispensed Refills Start Date Active venlafaxine XR 150 mg 24 Take 1 30 capsule 1 0 hr capsuleIndications: capsule by 0 KELSIE (generalized anxiety mouth daily disorder) with breakfast. documented as of this encounter (statuses as of 11/03/2019) Active Problems Problem Noted Date Trauma 06/19/2019 Concussion with loss of consciousness 06/19/[address] 06/19/2019 Apnea for greater than 15 seconds 06/19/2019 Infection 09/28/2017 Chronic midline low back pain without sciatica 09/27 Overview: Added automatically from request for buzz nguyen [id number] Wound dehiscence 08/23/2017 Hardware complicating wound infection 08/18/2017 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 09/21/2016 Overview: Added automatically from request for buzz nguyen [id number] Chronic diastolic congestive heart failure 7 Narcotic abuse 03/14/2016 Overview: No further narcotic prescriptions from [facility]. Pt informed 03/13/16.- Angelica Valero [...] as of this encounter (statuses as of 11/03/2019) Resolved Problems Problem Noted Date Resolved Date [...] as of this encounter (statuses as of 11/03/2019) Immunizations Name Administration Dates Next Due DTAP [...] Assigned at Date Recorded Not on file Date Recorded COVID-19 Exposure Response 10/22/2019 3:06 PM CDT In the last month, have you been in contact with No / Unsure someone who was confirmed or suspected to have Coronavirus / COVID-19? documented as of this encounter Last Filed Vital Signs Not on filedocumented in this encounter Miscellaneous Notes * Telephone Encounter - Angelica Araya - 11/03/2019 1:24 PM CDT Called patient to schedule a hearing aid fitting appointment with Dr. Lira. Voicemail box is full and I was unable to leave a message. If patient calls, ple ase schedule hearing aid fitting with Dr. Lira at [facility] on a Sunday. 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 Sanchez Retail Manager documented in this encounter Plan of Treatment Care Team Description Date Type Specialty Raj Christensen MD [address] [facility] [address] [place] [address] [phone] 11/07/2019 Appointment Radiology Lorena Collins MD [address] [place] [phone] 11/10/2019 Office Visit Psychiatry Health Maintenance Due Date Last Done Comments HEPATITIS C (HCV) SCREEN 1960 Zoster Recombinant 08/26/2011 Vaccine (SHINGRIX) (1 of 2) PNEUMOCOCCAL 0-64 YEARS 05/21/2016 03/26/2016, COMBINED SERIES (2 of 3 - 04/15/2015 PPSV23) INFLUENZA VACCINE (#1) 2019 12/24/2018, 12/24/2016, 10/25/2015 Depression Screening 08/26/2020 08/27/2019, 08/27/2019 DTaP,Tdap,and Td Vaccines 03/26/2026 03/26/2016, (2 - Tdap) 03/26/2016 documented as of this encounter Implants Device Identifier Shelf Expiration Date Model / Serial / L ot Implanted Type Area Manufactur er 04/26/20172017-40 / [id number] / [id number] Dbm Putty Maxxeus 10cc Cts # BONE Left: Spin e Community - [id number] Tissue Implanted: Qty: 1 on 11/10/2015 by Services Harrison Wise MD at [facility] 07/07/2020 1234-12 / [id number] / [id number] Cancellous Crushed, Community BONE Left: Spine [facility] Tissue Services (1 10mm) Freeze Tissue Dried 60.0 Cc #1234-12 - [id number] Services Implanted: Qty: 1 on 11/10/2015 by Harrison Wise MD at [facility] 10/16/2021 1235-12 / [id number] / [id number] Cancellous Crushed, Community Health BONE N/A: Back [facility] Tissue Services (1 10mm) Freeze Tissue Dried 90.0 Cc #1235-12 - Services [id number] Implanted: Qty: 1 on 01/19/2017 by Harrison Wise MD at [facility] 09/22/2018 / [id number] / [id number] Dbm Putty Maxxeus 10cc Cts # BONE N/A: Back Community [facility] - [id number] Tissue Implanted: Qty: 1 on 01/19/2017 by Services Harrison Wise MD at [facility] 07/23/2018 [id number] Duraseal, Covidien Improved Dural Duraseal N/A: Spine Tyco/Covid Sealant System 5ml #[id number] - S00 ien Implanted: Qty: 1 on 08/08/2017 by Harrison Wise MD at [facility] 01/19/2027 [id number] / 0 / [id number] Yareli 4.75 Ccm Ns Curved 70mm Solara YARELI N/A: Back Medtronic Medtronic #[id number] - S0 Implanted: Qty: 2 on 01/19/2017 by Harrison Wise MD at [facility] 11/09/2025 [id number] / 0000 / [id number] Screw Solera 6.5x30mm Medtronic SCREW Left: Spine Medtronic #[id number] - [id number] Implanted: Qty: 2 on 11/10/2015 by Harrison Wise MD at [facility] 11/09/2025 [id number] / 0000 / [id number] Screw, Medtronic Solara 6.5x45 SCREW Left: Spine Medtronic #[id number] - [id number] Implanted: Qty: 2 on 11/10/2015 by Harrison Wise MD at [facility] 01/19/2027 [id number] / 0 / [id number] Screw Solera 8.5x30mm Mas Medtronic SCREW N/A: Back Medtronic #[id number] Implanted: Qty: 2 on 01/19/2017 by Harrison Wise MD at [facility] 01/19/2027 [id number] / 0 / [id number] Screw, Medtronic Solara 6.5x45 SCREW N/A: Back Medtronic #[id number] - S0 Implanted: Qty: 2 on 01/19/2017 by Harrison Wise MD at [facility] 08/09/2027 [id number] / 00 / [id number] Screw, Medtronic # Set Break Off Ti SCREW N/A: Spine Medtronic #[id number] - S00 Implanted: Qty: 3 on 08/08/2017 by Harrison Wise MD at [facility] Description:No charge for any implant per Hortensia Bell 11/09/2025 [id number] / 000 / [id number] Screw Solera 4.75 Ti Ns Break Off Left: Spine Med tronic Medtronic #[id number] - [id number] Implanted: Qty: 4 on 11/10/2015 by Harirson Wise MD at [facility] 11/09/2025 [id number] / 0000 / [id number] Yareli 4.75 Ccm Ns Curved 45mm Solera Left: Spine Me dtronic Medtronic #[id number] - [id number] Implanted: Qty: 2 on 11/10/2015 by Harrison Wise MD at [facility] 01/19/2027 [id number] / 0 / [id number] Screw Solera 4.75 Ti Ns Break Off N/A: Back Med tronic Medtronic #[id number] - S0 Implanted: Qty: 6 on 01/19/2017 by Harrison Wise MD at [facility] 01/19/2027 [id number] / 0 / [id number] Screw Solera 7.5x45mm Medtronic N/A: Back Medtr onic #[id number] - S0 Implanted: Qty: 2 on 01/19/2017 by Harrison Wise MD at [facility] documented as of this encounter Results Not on filedocumented in this encounter Insurance Type Payer Benefit Subscriber ID Effective Phone Address Plan / Dates Group Medicaid [employer] [place] [employer] [id number] 2015-P P O MARGI X [facility] [address] [place] [address] documented as of this encounter Advance Directives Relationship Healthcare Agent Relationship Communicat ion Name Emergency Contact Health Care Agent [phone] (Mobile ) Luanne Carson Child [facility] Health Care Agent Rico Christie
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
--- OUTSIDE RECORDS SUMMARY | 2019-11-04 15:57 | XMS REPORT | Summary of Care ---
Author Author [facility] - Health Organization [facility] - Health Address Unknown Phone Unavailable Care Team Providers Care Master Deputy Sheriff Court Security Name Role Phone Gabriella Coyle MD 12 Unavailable Pcp, Patient Does Not Have A PCP [phone] Reason for Visit * Reason Comments Hearing Aid Evaluation Encounter Details Care Team Description Date Type Department Andree Lira, AUD [address], [place] [address] Hearing aid consultation (Primary Dx); Sensorineural hearing loss (SNHL) of both ears 10/07/2019 Ancillary Visit [facility]-[address] [place] [address] Allergies Comments Active Allergy Reactions [...] Added automatically from request for buzz nguyen [id number] Wound dehiscence 08/23/2017 Hardware complicating wound infection 08/18/2017 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 09/21/2016 Overview: Added automatically from request for buzz heltonery [id number] Chronic diastolic congestive heart failure 7 Narcotic abuse 03/14/2016 Overview: No further narcotic prescriptions from [facility] Family Medicine. Pt informed 03/13/16.- [...] filedocumented in this encounter Progress Notes * Andree Lira AUD - 10/07/2019 11:00 AM CDT AUDIOLOGY HEARING AID EVALUATION Harvey Christie 59 year old male 10/07/2019 Subjective: Harvey Christie was seen today for a hearing aid evaluation. Audiologi c evaluation performed on 08/01/2019 revealed a mild to severe hearing loss in a cookie bite configuration. Mr. Christie currently uses Phonak Audeo V50 hearing aid in the left ear. He matthew ed pacemaker use, skin allergies, diabetes, and other medical conditions that wo uld affect the selection of hearing aid features and/or ear mold materials. Objective: Otoscopic exam: Clear canal with tympanic membrane (TM) visualized in both ears. Hearing Handicap Inventory: Deferred to a later date. Tolerance testing: FM (warble) tones using insert earphones MCL Speech 0.5 kHz 1 kHz 2 kHz 3 kHz Right (dBHL) 80 75 85 75 85 Left (dBHL) 85 90 50 95 90 UCL Speech 0.5 kHz 1 kHz 2 kHz 3 kHz Right (dBHL) 100 100 110 110 105 Left (dBHL) 100 105 105 100 100 QUICKSIN: Average 10.8 dB SNR indicating a moderate vxqlma-hw-snxam ratio loss. Assessment: Tolerance testing showed a reduced dynamic range for speech and pure tones. Mr. Christie continues to be a candidate for amplification. A monaural fit ting with binaural digital hearing aid is recommended to address his listening needs. However due to insurance restrictions, Mr. Christie can only obtain one he aring aid. Directional microphones are recommended to further address difficulti es in noisy situations. Discussed amplification features including hearing aid s tyles, binaural vs. monaural fittings, direct streaming capabilities with smart phones, rechargeablity, and additional hearing aid options. Plan: - Recommend trial period with Phonak M50-312 hearing aid with power dome (to mat ch the hearing aid in his left ear). - Scheduled ENT appointment for medical clearance for amplification. - Mr. Christie verbalized an understanding of results, recommendations, and plan of care of this visit. Andree Vázquez, [facility]-A Clinical Offset Press Operator Helper documented in this encounter Plan of Treatment Care Team Description Date [facility] [address] [facility] [address] [place] [address] [phone] 10/22/2019 Office Visit Orthopedic Surgery Lorena Collins MD [address] [place] [phone] 11/10/2019 Office Visit Psychiatry Health Maintenance Due [...] Implanted Type Area Manufactur er 04/26/20172017-40 / [id number] / [id number] Dbm Putty Maxxeus 10cc Cts # BONE Left: Spin e [facility] - [id number] Tissue Implanted: Qty: 1 on 11/10/2015 by Services Harrison Wise MD at [facility] 07/07/2020 1234-12 / [id number] / [id number] Cancellous Crushed, Community BONE Left: Spine [facility] Tissue Services (1 10mm) Freeze Tissue Dried 60.0 Cc #1234-12 - S0000 Services Implanted: Qty: 1 on 11/10/2015 by Harrison Wise MD at [facility] 10/16/2021 1235-12 / [id number] / [id number] Cancellous Crushed, [facility] BONE N/A: Back [facility] Tissue Services (1 10mm) Freeze Tissue Dried 90.0 Cc #1235-12 - Services [id number] Implanted: Qty: 1 on 01/19/2017 by Harrison Wise MD at [facility] 09/22/2018 / [id number] / [id number] Dbm Putty Maxxeus 10cc Cts # BONE N/A: Back [facility] - [id number] Tissue Implanted: Qty: 1 on 01/19/2017 by Services Harrison Wise MD at [facility] 07/23/2018 [id number] / / Duraseal, Covidien Improved Dural Duraseal N/A: Spine Tyco/Covid Sealant System 5ml #[id number] - S00 ien Implanted: Qty: 1 on 08/08/2017 by Harrison Wise MD at [facility] 01/19/2027 [id number] / 0 / [id number] Yareli 4.75 Ccm Ns Curved 70mm Solara YARELI N/A: Back Medtronic Medtronic #[id number] - S0 Implanted: Qty: 2 on 01/19/2017 by Harrison Wise MD at [facility] 11/09/2025 [id number] / 0000 / [id number] Screw Solera 6.5x30mm Medtronic SCREW Left: Spine Medtronic #[id number] - [id number] Implanted: Qty: 2 on 11/10/2015 by Harrison Wise MD at [facility] 11/09/2025 [id number] / 0000 / [id number] Screw, Medtronic Solara 6.5x45 SCREW Left: Spine Medtronic #[id number] - S0000 Implanted: Qty: 2 on 11/10/2015 by Harrison Wise MD at [facility] 01/19/2027 [id number] / 0 / [id number] Screw Solera 8.5x30mm Mas Medtronic SCREW N/A: Back Medtronic #[id number] Implanted: Qty: 2 on 01/19/2017 by Harrison Wise MD at [facility] 01/19/2027 [id number] / 0 / [id number] Screw, Medtronic Solara 6.5x45 SCREW N/A: Back Medtronic #[id number] - S0 Implanted: Qty: 2 on 01/19/2017 by Harrison Wise MD at [facility] 08/09/2027 [id number] / 00 / 00 Screw, Medtronic # Set Break Off Ti SCREW N/A: Spine Medtronic #[id number] - S00 Implanted: Qty: 3 on 08/08/2017 by Harrison Wise MD at [facility] Description:No charge for any implant per Cordell [employer] Rep 11/09/2025 [id number] / 000 / [id number] Screw Solera 4.75 Ti Ns Break Off Left: Spine Med tronic Medtronic #[id number] - S000 Implanted: Qty: 4 on 11/10/2015 by Harrison Wise MD at [facility] 11/09/2025 [id number] / 0000 / [id number] Yareli 4.75 Ccm Ns Curved 45mm Solera Left: Spine Me dtronic Medtronic #[id number] - S0000 Implanted: Qty: 2 on 11/10/2015 by Harrison Wise MD at [facility] 01/19/2027 [id number] / 0 / [id number] Screw Solera 4.75 Ti Ns Break Off N/A: Back Med tronic Medtronic #[id number] - S0 Implanted: Qty: 6 on 01/19/2017 by Harrison Wise MD at [facility] 01/19/2027 [id number] / 0 / [id number] Screw Solera 7.5x45mm Medtronic N/A: Back Medtr onic #[id number] - S0 Implanted: Qty: 2 on 01/19/2017 by Harrison Wise MD at [facility] documented as of this encounter Results Not on filedocumented in this encounter Visit Diagnoses Diagnosis Hearing aid consultation - Primary Sensorineural hearing loss (SNHL) of margi th ears documented in this encounter Insurance Type Payer Benefit Subscriber ID Effective Phone Address Plan / Dates Group Medicaid [employer] [place] [employer] xxxxxxxxx 2015-P [place] [address] [address] [place] [address] Retail documented as of this encounter Advance Directives Relationship Healthcare Agent Relationship Communicat ion Name Emergency Contact Primary healthcare agent [phone] (M obile) Luanne Carson Child First alternate healthcare agent Rico Christie
--- OUTSIDE RECORDS SUMMARY | 2019-11-04 15:57 | XMS REPORT | Clinical Summary ---
Author Author [facility] - Health Organization [facility] - Health Address Unknown Phone Unavailable Care Team Providers Care Protection Chief Industrial Plant Name Role Phone Gabriella Coyle MD 12 Unavailable Pcp, Patient Does Not Have A PCP [phone] Allergies Comments Active Allergy Reactions Severity Noted [...] Added automatically from request for buzz nguyen [id number] Wound dehiscence 08/23/2017 Hardware complicating wound infection 08/18/2017 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 09/21/2016 Overview: Added automatically from request for buzz nguyen [id number] Chronic diastolic congestive heart failure 7 Narcotic abuse 03/14/2016 Overview: No further narcotic prescriptions from [facility] Family Medicine. Pt informed 03/13/16.- Angelica Valero [...] Encounters Care Team Description Date Type Specialty Andree Lira AUD Hearing aid consultation (Primary Dx); Sensorineural hearing loss (SNHL) of both ears 10/07/2019 Ancillary Visit Audiology Doctor Unassigned, [place] 09/23/2019 Orders Only Andree Lira AUD Notification (Hearing aid benefit) 09/15/2019 Case Management Audiology 08/27/2019 Travel Nikki Weber, PHD Nkechi Dutton AUD Sensorineural hearing loss (SNHL) of bot h ears (Primary Dx); Hearing aid adjustment 08/05/2019 Ancillary Visit Audiology Nikki Weber, PHD Oma Coe CRISTIAN Sensorineural hearing loss (SNHL) of bot h ears (Primary Dx) 08/01/2019 Ancillary Visit Audiology Doctor Unassigned, [place] 08/01/2019 Orders Only Nikki Weber, PHD Kaela/Bon, [facility] Audio Bilateral sensorineural hearing loss (Pr imary Dx) 07/29/2019 Ancillary Visit Audiology Prerna Thompson, PT DISCHARGE 07/16/2019 Clinic Physical Therapy Assessment from Last 3 Months Immunizations Name Administration [...] Treatment Care Team Description Date Type Specialty Dee Cunningham PA-C [address] [place] [address] [phone] 10/15/2019 Office Visit Otolaryngology Raj Christensen MD [address] [facility] [facility] [address] [place] [address] [phone] 10/22/2019 Office Visit Orthopedic Surgery Health Maintenance Due Date Last Done Comments [...] Type Area Manufactur er 04/26/2017 2018-40 / [id number] / [id number] Dbm Putty Maxxeus 10cc Cts #2018-40 BONE Left: Spin e Counts Include 234 [facility] - [id number] Tissue Implanted: Qty: 1 on 11/10/2015 by Services Harrison Wise MD at [facility] 07/07/2020 1234-12 / [id number] / [id number] Cancellous Crushed, Community BONE Left: Spine Community Tissue Services (1 10mm) Freeze Tissue Dried 60.0 Cc #1234-12 - S0000 Services Implanted: Qty: 1 on 11/10/2015 by Harrison Wise MD at [facility] 10/16/2021 1235-12 / [id number] / [id number] Cancellous Crushed, Community BONE N/A: Back Counts Include [address] [facility] Tissue Services (1 10mm) Freeze Tissue Dried 90.0 Cc #1235-12 - Services [id number] Implanted: Qty: 1 on 01/19/2017 by Harrison Wise MD at [facility] 09/22/2018 2018-40 / [id number] / [id number] Dbm Putty Maxxeus 10cc Cts #2018-40 BONE N/A: [facility] [id number] Tissue Implanted: Qty: 1 on 01/19/2017 by Services Harrison Wise MD at [facility] 07/23/2018353332 / Duraseal, Covidien Improved Dural Duraseal N/A: Spine Tyco/Covid Sealant System 5ml #[id number] - S00 ien Implanted: Qty: 1 on 08/08/2017 by Harrison Wise MD at [facility] 01/19/2027 [id number] / 0 / [id number] Yareli 4.75 Ccm Ns Curved 70mm Solara YARELI N/A: Back Medtronic Medtronic #[id number] - S0 Implanted: Qty: 2 on 01/19/2017 by Harrison Wise MD at [facility] 11/09/2025 [id number] / 0000 / [id number] Screw Solera 6.5x30mm Medtronic SCREW Left: Spine Medtronic #[id number] - S0000 Implanted: Qty: 2 on 11/10/2015 by Harrison Wise MD at [facility] 11/09/2025 [id number] / 0000 / [id number] Screw, Medtronic Solara 6.5x45 SCREW Left: Spine Medtronic #[id number] - S0000 Implanted: Qty: 2 on 11/10/2015 by Harrison Wise MD at [facility] 01/19/2027 [id number] / 0 / [id number] Screw Solera 8.5x30mm Mas Medtronic SCREW N/A: Back Medtronic #[id number] Implanted: Qty: 2 on 01/19/2017 by Harrison Wise MD at [facility] 01/19/2027 [id number] / 0 / [id number] Screw, Medtronic Solara 6.5x45 SCREW N/A: Back Medtronic #[id number] - S0 Implanted: Qty: 2 on 01/19/2017 by Harrison Wise MD at [facility] 08/09/2027 [id number] / 00 / 00 Screw, Medtronic # Set Break Off Ti SCREW N/A: Spine Medtronic #[id number] - S00 Implanted: Qty: 3 on 08/08/2017 by Harrison Wise MD at [facility] Description:No charge for any implant per Hortensia Bell 11/09/2025 [id number] / 000 / [id number] Screw Solera 4.75 Ti Ns Break Off Left: Spine Med tronic Medtronic #[id number] - S000 Implanted: Qty: 4 on 11/10/2015 by Harrison Wise MD at [facility] 11/09/2025 [id number] / 0000 / [id number] Yareli 4.75 Ccm Ns Curved 45mm Solera Left: Spine Me dtronic Medtronic #[id number] - S0000 Implanted: Qty: 2 on 11/10/2015 by Harrison Wise MD at [facility] 01/19/2027 [id number] / 0 / [id number] Screw Solera 4.75 Ti Ns Break Off N/A: Back Med tronic Medtronic #[id number] - S0 Implanted: Qty: 6 on 01/19/2017 by Harrison Wise MD at [facility] 01/19/2027 [id number] / 0 / [id number] Screw Solera 7.5x45mm Medtronic N/A: Back Medtr onic #[id number] - S0 Implanted: Qty: 2 on 01/19/2017 by Harrison Wise MD at [facility] Procedures Comments Procedure Name Priority Date/Time Associated Diag nosis REFERRAL- Routine 09/26/2019 REQUEST/RESPONSE 12:01 AM CDT EXTERNAL PROVIDER RECORDS Routine 09/23/2019 12:01 AM CDT AUDIOGRAM Routine 08/01/2019 12:01 AM CDT from Last 3 Months Results * REFERRAL- REQUEST/RESPONSE (09/26/2019 12:01 AM CDT) Specimen Performing Organization Address City/State/Zipcode Ph one Number HIM * EXTERNAL PROVIDER RECORDS (09/23/2019 12:01 AM CDT) Specimen Performing Organization Address City/State/Zipcode Ph one Number HIM * AUDIOGRAM (08/01/2019 12:01 AM CDT) Specimen Performing Organization Address City/State/Zipcode Ph one Number HIM from Last 3 Months Insurance Type Payer Benefit Subscriber ID Effective Phone Address Plan / Dates Group Medicaid [employer] [place] AMERIGROUP xxxxxxxxx 2015-P P O [facility] [address] [place] [email or web address] am[address] (Home) [place] [id number] Harvey Christie Hearing Self 1960 [address] (Home) [place] [id number] Retail Advance Directives Relationship Healthcare Agent Relationship Communicat ion Name Emergency Contact Primary healthcare agent [phone] (M obile) Luanne Carson Child First alternate healthcare agent Rico Christie
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
--- OUTSIDE RECORDS SUMMARY | 2019-11-04 15:57 | XMS REPORT | Summary of Care ---
Author Author [facility] - Health Organization [facility] - Health Address Unknown Phone Unavailable Care Team Providers Care General Purchasing Agent Name Role Phone Gabriella Coyle MD 12 Unavailable Pcp, Patient Does Not Have A PCP [phone] Encounter Details Care Team Description Date Type Department Doctor Unassigned, [place] [address] [place] [address] 08/06/2019 Patient [facility] Interventional Radiology [address] [place] [address] Allergies Comments Active Allergy Reactions Severity Noted Date Penicillins Rash 11/09/2015 documented as of this encounter (statuses as of 09/06/2019) Medications End Date Status Medication Sig Dispensed Refills Start Date Active venlafaxine XR 150 mg 24 Take 1 30 capsule 1 0 hr capsuleIndications: capsule by 0 KELSIE (generalized anxiety mouth daily disorder) with breakfast. documented as of this encounter (statuses as of 09/06/2019) Active Problems Problem Noted Date Trauma 06/19/2019 Concussion with loss of consciousness 06/19/[address] 06/19/2019 Apnea for greater than 15 seconds 06/19/2019 Infection 09/28/2017 Chronic midline low back pain without sciatica 09/27 Overview: Added automatically from request for buzz nguyen [id number] Wound dehiscence 08/23/2017 Hardware complicating wound infection 08/18/2017 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 09/21/2016 Overview: Added automatically from request for buzz nguyen [id number] Chronic diastolic congestive heart failure 7 Narcotic [...] as of this encounter (statuses as of 09/06/2019) Resolved Problems Problem Noted Date Resolved Date [...] as of this encounter (statuses as of 09/06/2019) Immunizations Name Administration Dates Next Due DTAP [...] Treatment Care Team Description Date Type Specialty AreliAndree kelly, AUD [address] [place] [address] [phone] 10/07/2019 Ancillary Visit Audiology Raj Christensen MD [address] [facility] [address] [place] [address] [phone] 10/23/2019 Office Visit Orthopedic Surgery Health Maintenance [...] Type Area Manufactur er 04/26/2017 2018-40 / [id number] / [id number] Dbm Putty Maxxeus 10cc Cts #2018-40 BONE Left: Spin e [facility] - [id number] Tissue Implanted: Qty: 1 on 11/10/2015 by Services Harrison Wise MD at [facility] 07/07/2020 1234-12 / [id number] / [id number] Cancellous Crushed, Community BONE Left: [facility] Tissue Services (1 10mm) Freeze Tissue Dried 60.0 Cc #1234-12 - S0000 Services Implanted: Qty: 1 on 11/10/2015 by Harrison Wise MD at [facility] 10/16/2021 1235-12 / [id number] / [id number] Cancellous Crushed, [facility] BONE N/A: Back [facility] Tissue Services (1 10mm) Freeze Tissue Dried 90.0 Cc #1235-12 - Services [id number] Implanted: Qty: 1 on 01/19/2017 by Harrison Wise MD at [facility] 09/22/2018 2018-40 / [id number] / [id number] Dbm Putty Maxxeus 10cc Cts #2018-40 BONE N/A: Back [facility] - [id number] Tissue Implanted: Qty: 1 on 01/19/2017 by Harrison Sidhu MD at [facility] 07/23/2018 [id number] / 00 / 00 Duraseal, Covidien Improved Dural Duraseal N/A: Spine Tyco/Covid Sealant System 5ml #793195 - S00 ien Implanted: Qty: 1 on 08/08/2017 by Harrison Wise MD at [facility] 01/19/2027 [id number] / 0 / [id number] Yareli 4.75 Ccm Ns Curved 70mm Solara YARELI N/A: Back Medtronic Medtronic #[id number] - S0 Implanted: Qty: 2 on 01/19/2017 by Harrison Wise MD at [facility] 11/09/2025 [id number] / 0000 / [id number] Screw Solera 6.5x30mm Medtronic SCREW Left: Spine Medtronic #[id number] - S0000 Implanted: Qty: 2 on 11/10/2015 by Harrison Wise MD at [facility] 11/09/2025 [id number] / 0000 / [id number] Screw, Medtronic Solara 6.5x45 SCREW Left: Spine Medtronic #[id number] - S0000 Implanted: Qty: 2 on 11/10/2015 by Harrison Wise MD at [facility] 01/19/2027 [id number] / 0 / [id number] Screw Solera 8.5x30mm Mas Medtronic SCREW N/A: Back Medtronic #[id number] Implanted: Qty: 2 on 01/19/2017 by Harrison Wise MD at [facility] 01/19/2027 [id number] / 0 / [id number] Screw, Medtronic Solara 6.5x45 SCREW N/A: Back Medtronic #[id number] - S0 Implanted: Qty: 2 on 01/19/2017 by Harrison Wise MD at [facility] 08/09/2027 [id number] / 00 / 00 Screw, Medtronic # Set Break Off Ti SCREW N/A: Spine Medtronic #[id number] - S00 Implanted: Qty: 3 on 08/08/2017 by Harrison Wise MD at [facility] Description:No charge for any implant per Hortensia Bell Rep 11/09/2025 [id number] / 000 / [id number] Screw Solera 4.75 Ti Ns Break Off Left: Spine Med tronic Medtronic #[id number] - S000 Implanted: Qty: 4 on 11/10/2015 by Harrison Wise MD at [facility] 11/09/2025 [id number] / 0000 / [id number] Yareli 4.75 Ccm Ns Curved 45mm Solera Left: Spine Me dtronic Medtronic #[id number] - S0000 Implanted: Qty: 2 on 11/10/2015 by Harrison Wise MD at [facility] 01/19/2027 [id number] / 0 / [id number] Screw Solera 4.75 Ti Ns Break Off N/A: Back Med tronic Medtronic #[id number] - S0 Implanted: Qty: 6 on 01/19/2017 by Harrison Wise MD at [facility] 01/19/2027 [id number] / 0 / [id number] Screw Solera 7.5x45mm Medtronic N/A: Back Medtr onic #[id number] - S0 Implanted: Qty: 2 on 01/19/2017 by Harrison Wise MD at [facility] documented as of this encounter Results Not on filedocumented in this encounter Insurance Type Payer Benefit Subscriber ID Effective Phone Address Plan / Dates Group Medicaid [employer] [place] [employer] xxxxxxxxx 2015-P P O MARGI [facility] [address] [place] [address] documented as of this encounter Advance Directives Relationship Healthcare Agent Relationship Communicat ion Name Emergency Contact Primary healthcare agent [phone] (M obile) Luanne Carson Child First alternate healthcare agent Rico Christie
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
--- OUTSIDE RECORDS SUMMARY | 2019-11-04 15:57 | XMS REPORT | Summary of Care ---
Author Author [facility] - Health Organization [facility] - Health Address Unknown Phone Unavailable Care Team Providers Care Last Ironer Name Role Phone Gabriella Coyle MD 12 Unavailable Pcp, Patient Does Not Have A PCP [phone] Reason for Visit * Reason Comments Hearing Aid Evaluation Encounter Details Care Team Description Date Type Department Andree Lira, AUD [address] [place], [place] [address] Hearing aid consultation (Primary Dx); Sensorineural hearing loss (SNHL) of both ears 10/07/2019 Ancillary Visit [facility]-[address] [place] [address] Allergies Comments Active Allergy Reactions Severity Noted Date Penicillins Rash 11/09/2015 documented as of this encounter (statuses as of 10/07/2019) Medications End Date Status Medication Sig Dispensed Refills Start Date Active venlafaxine XR 150 mg 24 Take 1 30 capsule 1 0 hr capsuleIndications: capsule by 0 KELSIE (generalized anxiety mouth daily disorder) with breakfast. documented as of this encounter (statuses as of 10/07/2019) Active Problems Problem Noted Date Trauma 06/19/2019 Concussion with loss of consciousness 06/19/[address] 06/19/2019 Apnea for greater than 15 seconds 06/19/2019 Infection 09/28/2017 Chronic midline low back pain without sciatica 09/27 Overview: Added automatically from request for buzz nguyen [id number] Wound dehiscence 08/23/2017 Hardware complicating wound infection 08/18/2017 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 09/21/2016 Overview: Added automatically from request for buzz heltonery [id number] Chronic diastolic congestive heart failure 7 Narcotic [...] as of this encounter (statuses as of 10/07/2019) Resolved Problems Problem Noted Date Resolved Date [...] as of this encounter (statuses as of 10/07/2019) Immunizations Name Administration Dates Next Due DTAP [...] aid evaluation. Audiologi c evaluation performed on 365164L revealed a mild to severe hearing loss in a co okie bite configuration. Mr. Christie currently uses Phonak [...] Average 10.8 dB SNR indicating a moderate qeblch-jc-hdseg ratio loss. Assessment: Tolerance testing showed a [...] for medical clearance for amplification. - Mr. Christei verbalized an understanding of results, recommendations, and plan of care of this visit. Andree Vázquez, [facility] Clinical Chemistry Laboratory Technician documented in this encounter Plan of Treatment Care Team Description Date Type Specialty Dee Cunningham PA-C [address] [place] [address] [phone] 10/15/[address] [facility] [address] [facility] [address] [place] [address] [phone] 10/23/2019 Office Visit Orthopedic Surgery Health Maintenance [...] Implanted Type Area Manufactur er 04/26/20172017-40 / [id number] / [id number] Dbm Putty Maxxeus 10cc Cts # BONE Left: Spin e [facility] - [id number] Tissue Implanted: Qty: 1 on 11/10/2015 by Services Harrison Wise MD at [facility] 07/07/2020 1234-12 / [id number] / [id number] Cancellous Crushed, Community BONE Left: Spine [facility] Tissue Services (1 10mm) Freeze Tissue Dried 60.0 Cc #1234-12 - S0000 Services Implanted: Qty: 1 on 11/10/2015 by Harrison Wise MD at [facility] 10/16/2021 1235-12 / [id number] / [id number] Cancellous Crushed, [facility] BONE N/A: Back [facility] Tissue Services (1 10mm) Freeze Tissue Dried 90.0 Cc #1235-12 - Services [id number] Implanted: Qty: 1 on 01/19/2017 by Harrison Wise MD at [facility] 09/22/2018 / [id number] / [id number] Dbm Putty Maxxeus 10cc Cts # BONE N/A: Back [facility] - [id number] Tissue Implanted: Qty: 1 on 01/19/2017 by Services Harrison Wise MD at [facility] 07/23/2018 [id number] / / Duraseal, Covidien Improved Dural Duraseal N/A: Spine Tyco/Covid Sealant System 5ml #531267 - S00 ien Implanted: Qty: 1 on 08/08/2017 by Harrison Wise MD at [facility] 01/19/2027 [id number] / 0 / [id number] Yareli 4.75 Ccm Ns Curved 70mm Solara YARELI N/A: Back Medtronic Medtronic #[id number] - S0 Implanted: Qty: 2 on 01/19/2017 by Harrison Wise MD at [facility] 11/09/2025 [id number] / 0000 / [id number] Screw Solera 6.5x30mm Medtronic SCREW Left: Spine Medtronic #[id number] - S0000 Implanted: Qty: 2 on 11/10/2015 by Harrison Wise MD at [facility] 11/09/2025 [id number] / 0000 / [id number] Screw, Medtronic Solara 6.5x45 SCREW Left: Spine Medtronic #[id number] - S0000 Implanted: Qty: 2 on 11/10/2015 by Harrison Wise MD at [facility] 01/19/2027 [id number] / 0 / [id number] Screw Solera 8.5x30mm Mas Medtronic SCREW N/A: Back Medtronic #[id number] Implanted: Qty: 2 on 01/19/2017 by Harrison Wise MD at [facility] 01/19/2027 [id number] / 0 / [id number] Screw, Medtronic Solara 6.5x45 SCREW N/A: Back Medtronic #[id number] - S0 Implanted: Qty: 2 on 01/19/2017 by Harrison Wise MD at [facility] 08/09/2027 [id number] / 00 / 00 Screw, Medtronic # Set Break Off Ti SCREW N/A: Spine Medtronic #[id number] - S00 Implanted: Qty: 3 on 08/08/2017 by Harrison Wise MD at [facility] Description:No charge for any implant per Cordell [employer] Rep 11/09/2025 [id number] / 000 / [id number] Screw Solera 4.75 Ti Ns Break Off Left: Spine Med tronic Medtronic #[id number] - S000 Implanted: Qty: 4 on 11/10/2015 by Harrison Wise MD at [facility] 11/09/2025 [id number] / 0000 / [id number] Yareli 4.75 Ccm Ns Curved 45mm Solera Left: Spine Me dtronic Medtronic #[id number] - S0000 Implanted: Qty: 2 on 11/10/2015 by Harrison Wise MD at [facility] 01/19/2027 [id number] / 0 / [id number] Screw Solera 4.75 Ti Ns Break Off N/A: Back Med tronic Medtronic #[id number] - S0 Implanted: Qty: 6 on 01/19/2017 by Harrison Wise MD at [facility] 01/19/2027 [id number] / 0 / [id number] Screw Solera 7.5x45mm Medtronic N/A: Back Medtr onic #[id number] - S0 Implanted: Qty: 2 on 01/19/2017 by Harrison Wise MD at [facility] documented as of this encounter Results Not on filedocumented in this encounter Visit Diagnoses Diagnosis Hearing aid consultation - Primary Sensorineural hearing loss (SNHL) of margi th ears documented in this encounter Insurance Type Payer Benefit Subscriber ID Effective Phone Address Plan / Dates Group Medicaid [employer] [place] [employer] xxxxxxxxx 2015-P P O [place] [facility] [address] [place] [address] Retail documented as of this encounter Advance Directives Relationship Healthcare Agent Relationship Communicat ion Name Emergency Contact Primary healthcare agent [phone] (M obile) Luanne Carson Child First alternate healthcare agent Rico Christie
--- OUTSIDE RECORDS SUMMARY | 2019-11-04 15:57 | XMS REPORT | Summary of Care ---
Author Author [facility] - Health Organization [facility] - Health Address Unknown Phone Unavailable Care Team Providers Care Stuntman Name Role Phone Gabriella Coyle MD 12 Unavailable Pcp, Patient Does Not Have A PCP [phone] Encounter Details Care Team Description Date Type Department Doctor Unassigned, [place] [address] [place] [address] 09/23/2019 Orders Only [address] [address] Allergies Comments Active Allergy Reactions Severity Noted Date Penicillins Rash 11/09/2015 documented as of this encounter (statuses as of 09/23/2019) Medications End Date Status Medication Sig Dispensed Refills Start Date Active venlafaxine XR 150 mg 24 Take 1 30 capsule 1 0 hr capsuleIndications: capsule by 0 KELSIE (generalized anxiety mouth daily disorder) with breakfast. documented as of this encounter (statuses as of 09/23/2019) Active Problems Problem Noted Date Trauma 06/19/2019 Concussion with loss of consciousness 06/19/[address] 06/19/2019 Apnea for greater than 15 seconds 06/19/2019 Infection 09/28/2017 Chronic midline low back pain without sciatica 09/27 Overview: Added automatically from request for gerber wendy [id number] Wound dehiscence 08/23/2017 Hardware complicating wound infection 08/18/2017 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 09/21/2016 Overview: Added automatically from request for buzz nguyen [id number] Chronic diastolic congestive heart failure 7 Narcotic [...] as of this encounter (statuses as of 09/23/2019) Resolved Problems Problem Noted Date Resolved Date [...] as of this encounter (statuses as of 09/23/2019) Immunizations Name Administration Dates Next Due DTAP [...] Treatment Care Team Description Date Type Specialty SorayaAndree, AUD [address] [place] [address] [phone] 10/07/2019 [facility] [address] [facility] [address] [place] [address] [phone] 10/23/2019 Office Visit Orthopedic Surgery Health Maintenance [...] Type Area Manufactur er 04/26/2017 2018-40 / [id number] / [id number] Dbm Putty Maxxeus 10cc Cts #2018-40 BONE Left: Spin e [facility] - [id number] Tissue Implanted: Qty: 1 on 11/10/2015 by Services Harrison Wise MD at [facility] 07/07/2020 1234-12 / [id number] / [id number] Cancellous Crushed, Community BONE Left: Spine [facility] Tissue Services (1 10mm) Freeze Tissue Dried 60.0 Cc #1234-12 - S0000 Services Implanted: Qty: 1 on 11/10/2015 by Harrison Wise MD at [facility] 10/16/2021 1235-12 / [id number] / [id number] Cancellous Crushed, [facility] BONE N/A: Back [facility] Tissue Services (1 10mm) Freeze Tissue Dried 90.0 Cc #1235-12 - Services [id number] Implanted: Qty: 1 on 01/19/2017 by Harrison Wise MD at [facility] 09/22/201840 / [id number] / [id number] Dbm Putty Maxxeus 10cc Cts #2018- BONE N/A: [facility] - [id number] Tissue Implanted: Qty: 1 on 01/19/2017 by Services Harrison Wise MD at [facility] 07/23/2018272232 / / Duraseal, Covidien Improved Dural Duraseal N/A: Spine Tyco/Covid Sealant System 5ml #[id number] - S00 ien Implanted: Qty: 1 on 08/08/2017 by Harrison Wise MD at [facility] 01/19/2027 [id number] / 0 / [id number] Yareli 4.75 Ccm Ns Curved 70mm Solara YARELI N/A: Back Medtronic Medtronic #[id number] - S0 Implanted: Qty: 2 on 01/19/2017 by Harrison Wise MD at [facility] 11/09/2025 [id number] / 0000 / [id number] Screw Solera 6.5x30mm Medtronic SCREW Left: Spine Medtronic #[id number] - [id number] Implanted: Qty: 2 on 11/10/2015 by Harrison Wise MD at [facility] 11/09/2025 [id number] / 0000 / [id number] Screw, Medtronic Solara 6.5x45 SCREW Left: Spine Medtronic #[id number] - [id number] Implanted: Qty: 2 on 11/10/2015 by Harrison Wise MD at [facility] 01/19/2027 [id number] / 0 / [id number] Screw Solera 8.5x30mm Mas Medtronic SCREW N/A: Back Medtronic #[id number] Implanted: Qty: 2 on 01/19/2017 by Harrison Wise MD at [facility] 01/19/2027 [id number] / 0 / [id number] Screw, Medtronic Solara 6.5x45 SCREW N/A: Back Medtronic #[id number] - S0 Implanted: Qty: 2 on 01/19/2017 by Harrison Wise MD at [facility] 08/09/2027 [id number] / 00 / [id number] Screw, Medtronic # Set Break Off Ti SCREW N/A: Spine Medtronic #[id number] - S00 Implanted: Qty: 3 on 08/08/2017 by Harrison Wise MD at [facility] Description:No charge for any implant per Cordell Bellte[employer] 11/09/2025 [id number] / 000 / [id number] Screw Solera 4.75 Ti Ns Break Off Left: Spine Med tronic Medtronic #[id number] - S000 Implanted: Qty: 4 on 11/10/2015 by Harrison Wise MD at [facility] 11/09/2025 [id number] / 0000 / [id number] Yareli 4.75 Ccm Ns Curved 45mm Solera Left: Spine Me dtronic Medtronic #[id number] - [id number] Implanted: Qty: 2 on 11/10/2015 by Harrison Wise MD at [facility] 01/19/2027 [id number] / 0 / [id number] Screw Solera 4.75 Ti Ns Break Off N/A: Back Med tronic Medtronic #[id number] - S0 Implanted: Qty: 6 on 01/19/2017 by Harrison Wise MD at [facility] 01/19/2027 [id number] / 0 / [id number] Screw Solera 7.5x45mm Medtronic N/A: Back Medtr onic #[id number] - S0 Implanted: Qty: 2 on 01/19/2017 by Harrison Wise MD at [facility] documented as of this encounter Procedures Comments Procedure Name Priority Date/Time Associated Diag nosis EXTERNAL PROVIDER RECORDS Routine 09/23/2019 12:01 AM CDT documented in this encounter Results Not on filedocumented in this encounter Insurance Type Payer Benefit Subscriber ID Effective Phone Address Plan / Dates Group Medicaid [employer] [place] AMER[employer] xxxxxxxxx 2015-P P O [facility] [address] [place] [address] documented as of this encounter Advance Directives Relationship Healthcare Agent Relationship Communicat ion Name Emergency Contact Primary healthcare agent [phone] (M obile) Luanne Carson Child First alternate healthcare agent Rico Christie
--- OUTSIDE RECORDS SUMMARY | 2019-11-04 15:57 | XMS REPORT | Clinical Summary ---
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 Name Role Phone Gabriella Coyle MD 12 Unavailable Pcp, Patient Does Not Have A PCP [phone] Allergies Comments Active Allergy Reactions Severity Noted [...] Added automatically from request for buzz nguyen [id number] Wound dehiscence 08/23/2017 Hardware complicating wound infection 08/18/2017 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 09/21/2016 Overview: Added automatically from request for buzz nguyen [id number] Chronic diastolic congestive heart failure 7 Narcotic [...] Dx) 08/01/2019 Ancillary Visit Audiology Doctor Unassigned, [place] 08/01/2019 Orders Only Nikki Weber, PHD Kaela/Bon, [facility] Audio Bilateral sensorineural hearing loss (Pr [...] Type Specialty Andree Lira, AUD [address] [place] [address] [phone] 10/07/2019 Ancillary Visit Audiology Health Maintenance Due [...] Type Area Manufactur er 04/26/2017 2018-40 / [id number] / [id number] Dbm Putty Maxxeus 10cc Cts #2018-40 BONE Left: Spin e [facility] - [id number] Tissue Implanted: Qty: 1 on 11/10/2015 by Services Harrison Wise MD at [facility] 07/07/2020 1234-12 / [id number] / [id number] Cancellous Crushed, Community BONE Left: Spine [facility] Tissue Services (1 10mm) Freeze Tissue Dried 60.0 Cc #1234-12 - S0000 Services Implanted: Qty: 1 on 11/10/2015 by Harrison Wise MD at [facility] 10/16/2021 1235-12 / [id number] / [id number] Cancellous Crushed, Community BONE N/A: Back [facility] Tissue Services (1 10mm) Freeze Tissue Dried 90.0 Cc #1235-12 - Services [id number] Implanted: Qty: 1 on 01/19/2017 by Harrison Wise MD at [facility] 09/22/2018 2018-40 / [id number] / [id number] Dbm Putty Maxxeus 10cc Cts #2018-40 BONE N/A: Back [facility] [id number] Tissue Implanted: Qty: 1 on 01/19/2017 by Services Harrison Wise MD at [facility] 07/23/2018637811 / / Duraseal, Covidien Improved Dural Duraseal N/A: Spine Tyco/Covid Sealant System 5ml #[id number] - S00 ien Implanted: Qty: 1 on 08/08/2017 by Harrison Wise MD at [facility] 01/19/2027 [id number] / 0 / [id number] Yareli 4.75 Ccm Ns Curved 70mm Solara YARELI N/A: Back Medtronic Medtronic #[id number] - S0 Implanted: Qty: 2 on 01/19/2017 by Harrison Wise MD at [facility] 11/09/2025 [id number] / 0000 / [id number] Screw Solera 6.5x30mm Medtronic SCREW Left: Spine Medtronic #[id number] - [id number] Implanted: Qty: 2 on 11/10/2015 by Harrison Wise MD at [facility] 11/09/2025 [id number] / 0000 / [id number] Screw, Medtronic Solara 6.5x45 SCREW Left: Spine Medtronic #[id number] - S0000 Implanted: Qty: 2 on 11/10/2015 by Harrison Wise MD at [facility] 01/19/2027 [id number] / 0 / [id number] Screw Solera 8.5x30mm Mas Medtronic SCREW N/A: Back Medtronic #[id number] Implanted: Qty: 2 on 01/19/2017 by Harrison Wise MD at [facility] 01/19/2027 [id number] / 0 / [id number] Screw, Medtronic Solara 6.5x45 SCREW N/A: Back Medtronic #[id number] - S0 Implanted: Qty: 2 on 01/19/2017 by Harrison Wise MD at [facility] 08/09/2027 [id number] / 00 / 00 Screw, Medtronic # Set Break Off Ti SCREW N/A: Spine Medtronic #[id number] - S00 Implanted: Qty: 3 on 08/08/2017 by Harrison Wise MD at [facility] Description:No charge for any implant per Hortensia Bell Rep 11/09/2025 [id number] / 000 / [id number] Screw Solera 4.75 Ti Ns Break Off Left: Spine Med tronic Medtronic #[id number] - S000 Implanted: Qty: 4 on 11/10/2015 by Harrison Wise MD at [facility] 11/09/2025 [id number] / 0000 / [id number] Yareli 4.75 Ccm Ns Curved 45mm Solera Left: Spine Me dtronic Medtronic #[id number] - S0000 Implanted: Qty: 2 on 11/10/2015 by Harrison Wise MD at [facility] 01/19/2027 [id number] / 0 / [id number] Screw Solera 4.75 Ti Ns Break Off N/A: Back Med tronic Medtronic #[id number] - S0 Implanted: Qty: 6 on 01/19/2017 by Harrison Wise MD at [facility] 01/19/2027 [id number] / 0 / [id number] Screw Solera 7.5x45mm Medtronic N/A: Back Medtr onic #[id number] - S0 Implanted: Qty: 2 on 01/19/2017 by Harrison Wise MD at [facility] Procedures Comments Procedure Name Priority [...] Chronic l ow back pain, 2:58 PM 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 SERVICES Specimen Swab - NARES, BOTH SIDES Performing Organization [facility] one Number [facility] SERVICES CLIA: [id number], [address] [place] [address] [facility] * MYOGLOBIN SERUM (06/19/2019 8:54 PM CDT) Pathologist [facility] MYOGLOB S 75.4 <=121.0 ng/mL [facility] SERVICES Specimen Blood - ARM, LEFT Narrative Performed At [facility] has been reported to cause a neg ative bias, interpret results relative to [facility] patient's use of biotin. SERVICES Performing Organization Address [facility] one Number [facility] SERVICES CLIA: [id number], [address] [place] [address] [facility] * CREATINE KINASE (06/19/2019 8:54 PM CDT) Pathologist [facility] CK 68 33 - 194 U/L [facility] SERVICES Specimen Blood - ARM, LEFT Performing Organization [facility] one [facility] LABORATORY SERVICES CLIA: [id number], [address] [place] [address] [facility] * CT THORAX W CONTRAST (06/19/2019 [...] above report. Performing Organization Address [facility] one Number PACS/VR/DOSE * CT LUMBAR [...] above report. Performing Organization Address [facility] one Number PACS/VR/DOSE * CT CERVICAL [...] dictated CT chest for detailed evaluation of [facility] findings. LIVER: No focal hepatic lesions. Norm [...] above report. Performing Organization Address [facility] one Number PACS/VR/DOSE * XR CHEST [...] with the above report. Performing Organization Address City/[facility] one Number PACS/VR/DOSE * Type and Screen - The Type and Screen expires at midnight on the 3rd day after it was drawn. A current Type and Screen is required when RBCs are requested. For all other blood products, a Type and Screen performed during the current hospitalizati... (06/19/2019 8:26 PM CDT) Pathologist [facility] ABO & RH A POSITIVE LAB Comment: Performed at [facility] Laboratory Services - [facility] Blood Bank [address] [place] [address] Toll Free: [phone] CLIA No. [id number] IAT Negative LAB Comment: Performed at [facility] Laboratory Services - [facility] Blood [place] [address] Toll Free: [phone] CLIA No. [id number] Specimen Blood - VENOUS Performing Organization Address [facility] Number D LAB * aPTT (06/19/2019 8:25 PM CDT) Pathologist [facility] APTT Patient 26 26 - 36 Seconds [facility] Y SERVICES Specimen Blood - ARM, LEFT Performing Organization Address [facility] one Number [facility] SERVICES CLIA: [id number], [address] [place] [address] [facility] * Prothrombin Time (PT) / INR (06/19/2019 8:25 PM CDT) Pathologist [facility] PROTIME PATIENT 10.9 10.1 - 12.6 Seconds [facility] SERVICES INR 1.0Comment: Normal INR <1.1; [facility] Warfarin Therapeutic range 2.0 SERVICES to 3.0 or 2.5 to 3.5, depending upon the indications. Specimen Blood - ARM, LEFT Performing Organization Address [facility] one Number [facility] SERVICES CLIA: [id number], [address] [place] [address] [facility] * Profile / Hemogram (06/19/2019 8:25 PM CDT) Pathologist [facility] WBC 7.95 4.20 - 10.70 [facility] 10*3/L SERVICES RBC 4.91 4.26 - 5.52 10*6/L [facility] HGB 14.3 12.2 - 16.4 g/dL [facility] HCT 43.4 38.4 - 49.3 % [facility] SERVICES MCH 29.1 26.1 - 32.7 pg [facility] SERVICES MCV 88.4 81.7 - 95.6 fL [facility] MCHC 32.9 31.2 - 35.0 g/dL [facility] PLT 210 150 - 328 10*3/L [facility] MPV 9.0 (L) 9.8 - 13.0 fL [facility] RDW-CV 14.2 12.1 - 15.4 % [facility] RDW-SD 45.7 38.5 - 51.6 fL [facility] NRBC x10^3 <0.01 10*3/L [facility] SERVICES NRBC/100 WBC 0.0 0.0 - 10.0 /100 WBCs [facility] IPF % [facility] SERVICES Specimen Blood - ARM, LEFT Performing Organization Address City/State/Zipcode Ph one Number [facility] SERVICES CLIA: [id number], [address] [place] [address] [facility] * Basic Metabolic Panel (NA, K, CL, CO2, GLUCOSE, BUN, CREATININE, CA) (06/19/2019 8:25 PM CDT) NA 141 135 - 145 mmol/L [facility] K 4.3 3.5 - 5.0 mmol/L [facility] CL 105 98 - 108 mmol/L [facility] Y SERVICES CO2 TOTAL 26 23 - 31 mmol/L [facility] AGAP 10 2 - 16 [facility] BUN 9 7 - 23 mg/dL [facility] SERVICES GLUCOSE 86 70 - 110 mg/dL [facility] SERVICES CREATININE 0.80 0.60 - 1.25 mg/dL [facility] ORY SERVICES CALCIUM 9.3 8.6 - 10.6 mg/dL [facility] eGFR 99.6 mL/min/1.73m2 [facility] Calculation SERVICES (Non-) eGFR 120.8 mL/min/1.73m2 [...] Number [facility] SERVICES CLIA: [id number], [address] [place] [address] [facility] * HOSPITAL ADMISSION (06/19/2019 12:01 AM [...] LUMBAR SPINE 2 VW (05/29/2019 2:58 PM SALESPERSON SURGICAL APPLIANCES) Specimen Impressions Performed At FINDINGS/IMPRESSION:: PACS/VR/DOSE Frontal [...] Results Inft User - 05/29/2019 3:15 PM SALESPERSON SURGICAL APPLIANCES EXAM: XR LUMBAR SPINE 2 VW HISTORY: [...] PACS/VR/DOSE * PATIENT QUESTIONNAIRE (05/29/2019 12:01 AM SALESPERSON SURGICAL APPLIANCES) Specimen Performing Organization Address City/State/Zipcode Ph one Number HIM from Last 3 Months Insurance Type Payer Benefit Subscriber ID Effective Phone Address Plan / Dates Group Medicaid [employer] [place] [employer] xxxxxxxxx 2015-P P O [facility] [address] [place] [address] Retail Advance Directives Relationship Healthcare Agent Relationship Communicat ion Name Emergency Contact Primary healthcare agent [phone] (M obile) Luanne Carson [facility] healthcare agent Rico Christie
--- OUTSIDE RECORDS SUMMARY | 2019-11-04 15:57 | XMS REPORT | Summary of Care ---
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 Role Phone Gabriella Coyle MD 12 Unavailable Pcp, Patient Does Not Have A PCP [phone] Reason for Visit * Reason Comments Notification Hearing aid benefit Encounter Details Care Team Description Date Type Department nAdree Lira, AUD [address] [place], [place] [address] Notification (Hearing aid benefit) 09/15/2019 Case Management [facility]-[address] [phone] Allergies Comments Active Allergy Reactions Severity Noted Date Penicillins Rash 11/09/2015 documented as of this encounter (statuses as of 10/17/2019) Medications End Date Status Medication Sig Dispensed Refills Start Date Active venlafaxine XR 150 mg 24 Take 1 30 capsule 1 0 hr capsuleIndications: capsule by 0 KELSIE (generalized anxiety mouth daily disorder) with breakfast. documented as of this encounter (statuses as of 10/17/2019) Active Problems Problem Noted Date Trauma 06/19/2019 Concussion with loss of consciousness 06/19/[address] 06/19/2019 Apnea for greater than 15 seconds 06/19/2019 Infection 09/28/2017 Chronic midline low back pain without sciatica 09/27 Overview: Added automatically from request for buzz nguyen [id number] Wound dehiscence 08/23/2017 Hardware complicating wound infection 08/18/2017 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 09/21/2016 Overview: Added automatically from request for gerber wendy [id number] Chronic diastolic congestive heart failure 7 Narcotic abuse 03/14/2016 Overview: No further narcotic prescriptions from [facility] Family Medicine. Pt informed [...] as of this encounter (statuses as of 10/17/2019) Resolved Problems Problem Noted Date Resolved Date [...] as of this encounter (statuses as of 10/17/2019) Immunizations Name Administration Dates Next Due DTAP [...] in this encounter Progress Notes * Andree Lira, AUD - 09/15/2019 2:02 PM CDT Insurance: [place] MEDICA[place] Date of call: 09/10/19 Name of insurance contact: MALENA Reference #: [id number] Hearing aid evaluation codes pre-certed: V5010, 63990, 84920, 18211 and 73521- NO AUTH REQ Hearing aid: Is Pre-cert necessary (Y or N): N Hearing aid Benefit (codes): N MISHRA Service codes pre-certed: V5011 Fitting/orientation/checking of hearing aid V5020 Conformity Evaluation V5160 Dispensing fee (binaural) OR V5241 Dispensing fee (monaural) OR V5200 Dispensing fee (CROS transmitter only) NOT COVERED OR V5240 Dispensing fee(BiCROS - binaural system) If HAE-S (OID aka BAHA or CI): N 67337 and 67254 Earmold codes pre-certed: N V5264 Non-disposable earmold (3) V5265 Disposable earmold Hearing aid code pre-certed: N V5261 Binaural BTE V5257 Monaural BTE Please attach any document pertaining to the precert. What does the plan pay for the hearing aid ? MEMBERS OVER 21YRS OF AGE; 1 MISHRA TIMMY RY 5YRS BASED ON MEDICAL NECESSITY Is there a maximum amount the plan will pay for the hearing aid? NO MAX DOLLAR AMOUNT Is there a usual and customary amount for the hearing aid? Is there a maximum out of pocket (OOP) expense? NO If yes, what is the amount? $ How much of the max OOP has been met? Is there a deductible? NO If yes, what is the amount? How much of the deductible has been met? Does the patient have a hearing aid co-insurance percentage? NO If so, how much? % Do the patient have medical benefits that apply toward the hearing aid? NO PER MALENA PLAN PAYS 1 MISHRA EVERY 5YRS BASED ON MEDICAL NECESSITY FOR MEMBERS OVER 21YRS OF A GE NO MAX DOLLAR AMOUNT NO CP/DED/COINS/OOP V5200 IS NOT A COVERED BENEFIT V5264 X3 ALLOWED NO AUTH REQUIRED FOR IN NETWORK PROVIDERS CR#: [id number] documented in this encounter Plan of Treatment Care Team Description Date Type [facility] [address] [facility] [address] [place] [address] [phone] 10/22/2019 Office Visit Orthopedic Surgery Lorena Collins MD [address] [place] [phone] 11/10/2019 Office Visit Psychiatry Health Maintenance Due [...] Implanted Type Area Manufactur er 04/26/20172017-40 / [id number] / [id number] Dbm Putty Maxxeus 10cc Cts #2017- BONE Left: Spin e [facility] - [id number] Tissue Implanted: Qty: 1 on 11/10/2015 by Services Harrison Wise MD at [facility] 07/07/2020 1234-12 / [id number] / [id number] Cancellous Crushed, Community BONE Left: Spine [facility] Tissue Services (1 10mm) Freeze Tissue Dried 60.0 Cc #1234-12 - [id number] Services Implanted: Qty: 1 on 11/10/2015 by Harrison Wise MD at [facility] 10/16/2021 1235-12 / [id number] / [id number] Cancellous Crushed, [facility] BONE N/A: Back [facility] Tissue Services (1 10mm) Freeze Tissue Dried 90.0 Cc #1235-12 - Services [id number] Implanted: Qty: 1 on 01/19/2017 by Harrison Wise MD at [facility] 09/22/20182017-40 / [id number] / [id number] Dbm Putty Maxxeus 10cc Cts #2017- BONE N/A: Back [facility] - [id number] Tissue Implanted: Qty: 1 on 01/19/2017 by Services Harrison Wise MD at [facility] 07/23/2018 [id number] / Duraseal, Covidien Improved Dural Duraseal N/A: Spine Tyco/Covid Sealant System 5ml #[id number] - S00 ien Implanted: Qty: 1 on 08/08/2017 by Harrison Wise MD at [facility] 01/19/2027 [id number] / 0 / [id number] Yareli 4.75 Ccm Ns Curved 70mm Solara YARELI N/A: Back Medtronic Medtronic #[id number] - S0 Implanted: Qty: 2 on 01/19/2017 by Harrison Wise MD at [facility] 11/09/2025 [id number] / 0000 / [id number] Screw Solera 6.5x30mm Medtronic SCREW Left: Spine Medtronic #[id number] - [id number] Implanted: Qty: 2 on 11/10/2015 by Harrison Wise MD at [facility] 11/09/2025 [id number] / 0000 / [id number] Screw, Medtronic Solara 6.5x45 SCREW Left: Spine Medtronic #[id number] - [id number] Implanted: Qty: 2 on 11/10/2015 by Harrison Wise MD at [facility] 01/19/2027 [id number] / 0 / [id number] Screw Solera 8.5x30mm Mas Medtronic SCREW N/A: Back Medtronic #[id number] Implanted: Qty: 2 on 01/19/2017 by Harrison Wise MD at [facility] 01/19/2027 [id number] / 0 / [id number] Screw, Medtronic Solara 6.5x45 SCREW N/A: Back Medtronic #[id number] - S0 Implanted: Qty: 2 on 01/19/2017 by Harrison Wsie MD at [facility] 08/09/2027 [id number] / 00 / 00 Screw, Medtronic # Set Break Off Ti SCREW N/A: Spine Medtronic #[id number] - S00 Implanted: Qty: 3 on 08/08/2017 by Harrison Wise MD at [facility] Description:No charge for any implant per Hortensia Bell 11/09/2025 [id number] / 000 / [id number] Screw Solera 4.75 Ti Ns Break Off Left: Spine Med tronic Medtronic #[id number] - [id number] Implanted: Qty: 4 on 11/10/2015 by Harrison Wise MD at [facility] 11/09/2025 [id number] / 0000 / [id number] Yareli 4.75 Ccm Ns Curved 45mm Solera Left: Spine Me dtronic Medtronic #[id number] - [id number] Implanted: Qty: 2 on 11/10/2015 by Harrison Wise MD at [facility] 01/19/2027 [id number] / 0 / [id number] Screw Solera 4.75 Ti Ns Break Off N/A: Back Med tronic Medtronic #[id number] - S0 Implanted: Qty: 6 on 01/19/2017 by Harrison Wise MD at [facility] 01/19/2027 [id number] / 0 / [id number] Screw Solera 7.5x45mm Medtronic N/A: Back Medtr onic #[id number] - S0 Implanted: Qty: 2 on 01/19/2017 by Harrison Wise MD at [facility] documented as of this encounter Results Not on filedocumented in this encounter Insurance Type Payer Benefit Subscriber ID Effective Phone Address Plan / Dates Group [facility] 2015-P P O MARGI X [facility] [address] [place] [address] documented as of this encounter Advance Directives Relationship Healthcare Agent Relationship Communicat ion Name Emergency Contact Primary healthcare agent [phone] (M obile) Luanne Carson Child First alternate healthcare agent Rico Christie
== END 2019-11-04 16:03 | disposition home or self-care (01) ==
LOC: FSED 14:29
DX: R07.9 Chest pain, unspecified (principal); R94.31 Abnormal electrocardiogram [ECG] [EKG]; F41.9 Anxiety disorder, unspecified; M54.9 Dorsalgia, unspecified; G89.29 Other chronic pain; Z85.038 Personal history of other malignant neoplasm of large intestine
CPT/HCPCS: 71045; 80053; 81003; 83880; 84484; 85025; 93005; 96374; 99284

== ENCOUNTER 2020-06-17 16:21 | Emergency (ER) | payer OTHER ==
[~2020-06-17] VITALS: Ht 170.2 cm; Wt 100.2 kg
[~2020-06-17 16:21] MED LIST: DIAZEPAM5 MG PO; GABAPENTIN300 MG PO; METOPROLOL SUCC50 MG PO
[2020-06-17] MEDS ORDERED: MORPHINE SULFATE INJ 4 MG/ML INJ 1ML IM PRN (19:45)
[2020-06-17] MEDS ORDERED: HYDROCODONE/APAP 10MG-325MG TAB PO ONE (21:30)
[2020-06-17] MEDS ORDERED: ZOFRAN4 MG SL (21:38)
[2020-06-17] MEDS ORDERED: TYLENOL # 31 EA PO (21:38)
[2020-06-17] MEDS ORDERED: VALIUM2 MG PO (21:38)
== END 2020-06-17 22:00 | disposition home or self-care (01) ==
LOC: ER 16:42
DX: S16.1XXA Strain of muscle, fascia and tendon at neck level, initial encounter (principal); M54.12 Radiculopathy, cervical region; S50.11XA Contusion of right forearm, initial encounter; W10.8XXA Fall (on) (from) other stairs and steps, initial encounter; Y93.01 Activity, walking, marching and hiking; I10 Essential (primary) hypertension; F41.9 Anxiety disorder, unspecified; Z85.038 Personal history of other malignant neoplasm of large intestine; Z86.73 Personal history of transient ischemic attack (TIA), and cerebral infarction without residual deficits; Z93.3 Colostomy status
CPT/HCPCS: 72125; 72128; 72131; 73090; 99283; J2270

== ENCOUNTER 2024-12-01 12:14 | Emergency (ER) | payer OTHER ==
[~2024-12-01] VITALS: Ht 170.2 cm; Wt 100.2 kg
[~2024-12-01 12:14] MED LIST changes: +ACETAMINOPHEN-1 EAC4 PO; +ONDANSETRON ODT4 MG PO; +TYLENOL # 31 EA PO; +VALIUM2 MG PO; +ZOFRAN4 MG SL
[2024-12-01 12:15] VITALS: TEMP 98.3
[2024-12-01 13:10] LABS: BASOPHILS % 0.4 % (0.0-1.0); EOSINOPHILS % 5.3 % (0.0-6.0); LYMPHOCYTES % 22.6 % (18.0-39.1); MONOCYTES % 9.4 % (4.4-11.3); NEUTROPHILS % 60.1 % (38.7-80.0); RED CELL DISTRIBUTION WIDTH 14.3 % (11.7-14.4)
[2024-12-01] MEDS: DIAZEPAM INJ 5 MG/ML 2 ML IV ONE (13:23)
[2024-12-01] MEDS: ONDANSETRON HCL INJ 2MG/ML 2ML 2 MG/ML VIAL IV STA (13:23)
[2024-12-01] MEDS: HYDROCODONE/APAP 5MG-325MG TAB PO ONE (13:23)
[2024-12-01] MEDS: SODIUM CHLORIDE 0.9% 1000ML 1,000 ML IV STA ×2 (13:23→15:31)
[2024-12-01 13:35] LABS: EST GLOMERULAR FILTRATION RATE 99.0 ML/MIN (>=60); INR 0.82
[2024-12-01] MEDS ORDERED: OZEMPIC2 MG/0.75 (14:47)
[2024-12-01] MEDS ORDERED: METFORMIN HCL500 MG (14:47)
[2024-12-01 15:00] VITALS: PULSE 79; RESP 14; O2SAT 97
[2024-12-01] MEDS ORDERED: INSULIN REGULAR, HUMAN 100 UNIT/1 ML IV ONE (15:00)
[2024-12-01] MEDS: ORPHENADRINE CITRATE 30 MG/ML VIAL IM ONE (15:31)
[2024-12-01] MEDS: INSULIN REGULAR, HUMAN 100 UNIT/1 ML IV ONE (15:33)
[2024-12-01 15:52] LABS: CORONAVIRUS COVID-19 AG NEGATIVE (NEGATIVE)
== END 2024-12-01 16:18 | disposition home or self-care (01) ==
LOC: ER 12:39
DX: S16.1XXA Strain of muscle, fascia and tendon at neck level, initial encounter (principal); W18.49XA Other slipping, tripping and stumbling without falling, initial encounter; Y93.01 Activity, walking, marching and hiking; Y92.89 Other specified places as the place of occurrence of the external cause; I10 Essential (primary) hypertension; E11.65 Type 2 diabetes mellitus with hyperglycemia; M54.9 Dorsalgia, unspecified; G89.29 Other chronic pain; F41.9 Anxiety disorder, unspecified; Z11.52 Encounter for screening for COVID-19; Z93.3 Colostomy status; Z86.73 Personal history of transient ischemic attack (TIA), and cerebral infarction without residual deficits; Z85.038 Personal history of other malignant neoplasm of large intestine
CPT/HCPCS: 36415; 71045; 80053; 82550; 82948; 83735; 83880; 84484; 85025; 85610; 85730; 93005; 99284; J2360; J2405; J3360; J7030

== ENCOUNTER 2025-01-17 15:53 | Emergency (ER) | payer OTHER ==
[~2025-01-17] VITALS: Ht 170.2 cm; Wt 100.2 kg
[~2025-01-17 15:53] MED LIST changes: +METFORMIN HCL500 MG; +OZEMPIC2 MG/0.75
[2025-01-17] MEDS: ACETAMINOPHEN 325 MG TAB PO ONE (16:59)
[2025-01-17 18:00] VITALS: PULSE 71; RESP 18; TEMP 98.3; O2SAT 98
[2025-01-17] MEDS: DIAZEPAM 5 MG TAB PO STA (19:02)
== END 2025-01-17 18:06 | disposition home or self-care (01) ==
LOC: ER 16:01
DX: M54.50 Low back pain, unspecified (principal); G89.29 Other chronic pain; I10 Essential (primary) hypertension; E11.9 Type 2 diabetes mellitus without complications; F41.9 Anxiety disorder, unspecified; Z86.73 Personal history of transient ischemic attack (TIA), and cerebral infarction without residual deficits; Z85.038 Personal history of other malignant neoplasm of large intestine; Z93.3 Colostomy status
CPT/HCPCS: 70450; 72125; 72131; 99284